=== PATIENT | female | born 1945 | race Caucasian/White ===

== ENCOUNTER 2023-01-18 14:08 | Outpatient (OUT) | payer MEDICARE, SELFPAY ==
--- NOTE | 2023-01-18 | CONS_ITS ---
CONSULTATION DATE: ??01/18/2023 ADDENDUM TO HISTORY:? After chief complaint, I had reported that the patient had sustained a fall on November 05, 2022 and suffered injury to her left shoulder and her left knee, requiring surgery for the left shoulder.? She reported, since that time, she has had marked acceleration of her lower back pain on the left side.? That entry was incorrect and this error correction needs to be documented. DAVID
--- NOTE | 2023-01-18 | CONS_ITS ---
PROCEDURE DATE: ??01/18/2023 PROCEDURE:? Left erector spinae trigger point injection at the L4 level. PREOPERATIVE DIAGNOSIS:? Pain secondary to myofascial spasm of the left lumbar paravertebral muscles/left erector spinae muscle. POSTOPERATIVE DIAGNOSIS:? Pain secondary to myofascial spasm of the left lumbar paravertebral muscles/left erector spinae muscle. IMMEDIATE COMPLICATIONS:? None. SOLUTION USED FOR INJECTION:? 2 mL of 2% lidocaine, 2 mL of 0.25% Marcaine, and 10 mg of Kenalog, total of 5 mL, 2 mL used for the injection at the site. PROCEDURE:? After informed consent was obtained from the patient, placed in the prone position.? Skin overlying the area was prepped with alcohol.? A 25 gauge, 1 ?? needle was inserted into the substance of the left erector spinae muscle at the L4 level.? Needle tip advanced until there was a twitch response, at which point we ruled out intravascular or intraneural needle tip placement.? 2 mL was injection.? No indication of intravascular or intraneural injection was noted.? Post procedure, needle was removed.? Patient reports reduction in pain symptoms post procedurally.? MTDD
--- NOTE | 2023-01-18 16:23 | CONS_ITS ---
CONSULTATION DATE: ??01/18/2023 TO:? Dr. Zoë Spivey CHIEF COMPLAINT:? Includes left lower back pain.? HISTORY:? She reports she sustained a fall on November 05, 2022 and was suffering injury to her left shoulder and her left knee, requiring surgery of the left shoulder, but she reports since that time she has had a marked acceleration of her lower back pain on the left side.? She reports the pain as being 5-7/10, sharp in character, increased with activity such as standing and walking and performing transitioning maneuvers.? She feels most comfortable in the semi- recumbent position.? She denies any change in bowel and bladder habits or new sensorimotor changes in the lower extremities. EXAM:? Her exam is notable for patient having no clinical radiculopathy or myelopathy involving the lower extremities; however, she did have progressive tenderness of what appears to be her L4 spinous process, possibly the L5 spinous process.? She had severe myofascial spasm of the lumbar paravertebral muscles on the left side including her erector spinae.? She had significant pain with lumbar facet loading maneuvers on the left side at L4-5, L5-S1. IMPRESSION:? Our impression is patient appears to have chronic pain secondary to: 1.? Possible compression fracture, possibly at L4, possibly L5, status post fall with progressive pain. 2.? Lumbosacral spondylosis, facet joint loading pain clinically on the left at L4-5, L5-S1. 3.? Myofascial spasm of erector spinae, more significant on the left side. RECOMMENDATIONS:? I have offered her trigger point injection of her left erector spinae muscle on today?s visit.? I have recommended a lumbosacral MRI without contrast to determine the extent of her compression fracture, if any, and we will follow up with the patient via telephone after we have evaluated her imaging studies.? She may be a candidate for either a facet joint injection on the left at L4-5, L5-S1 versus an epidural injection.? I would like to review the MRI prior to making this recommendation to the patient. As part of providing excellent, safe, comprehensive care, the following was completed at our patient's visit: 1. A medication reconciliation and review to ensure accurate knowledge of current/active medications, including asking our patients to inform us about any [id number] medications or herbal remedies/nutritional supplements/alternative remedies. 2. A review to specifically ensure our patients have had annual screening for: elevated body mass index (BMI, see intake chart for exact total), tobacco use, screening for depression, and screening for unhealthy alcohol use.? When screening is concerning, patients are provided with education and the specific recommendation to discuss the concerning health issue and treatment options with their primary care provider. DAVID
== END 2023-01-18 14:09 | disposition home or self-care (01) ==
LOC: PM 02-17 14:08
PROVIDERS: Visit Provider Anesthesiology Pain Medicine
DX: G89.29 Other chronic pain (principal); M47.817 Spondylosis without myelopathy or radiculopathy, lumbosacral region; M62.838 Other muscle spasm; M79.18 Myalgia, other site
CPT/HCPCS: 20552

== ENCOUNTER 2023-02-07 13:31 | Outpatient (OUT) | payer MEDICARE, SELFPAY ==
--- NOTE | 2023-02-07 13:38 | MR_ITS ---
[address] [address] Patient Name: NAHED BAUMANN MRN: [id number] date: 1945 Sex: F Assigned Patient Location: MRI Current Patient Location: MRI Accession/Order Number: [id number] Exam Date: 02/07/2023 13:50 Report Date: 02/07/2023 15:47 At the request of: YANE FELICIANO Procedure: MR lumbar spine wo con EXAMINATION: MR lumbar spine wo con HISTORY: Lumbar Compression Fracture ; acute left buttock and left leg pain; chronic low back pain COMPARISON: XR L-spine 01/18/2023 TECHNIQUE: A variety of imaging planes and parameters were utilized for visualization of suspected pathology. FINDINGS: For the purposes of numbering, sagittal T2 image # 10 extends from the T11 vertebral body superiorly to the S3 level inferiorly. PARASPINAL AREA: Normal with no visible mass. BONES: Minimal grade 1 anterolisthesis of L3 on 4. No fracture or bone lesion. CORD/CAUDA EQUINA: Normal caliber, contour, and signal intensity. DISC LEVELS: 12-L1: No significant disc/facet abnormality, spinal stenosis, or foraminal stenosis. L1-L2: No significant disc/facet abnormality, spinal stenosis, or foraminal stenosis. L2-L3: Mild central canal narrowing without significant foramen narrowing. Mild diffuse disc bulging and moderate disc height reduction. L3-L4: Moderate marked central canal and right foramen narrowing. Mild left foramen narrowing. Minimal grade 1 anterolisthesis, moderate diffuse disc bulging, moderate disc height reduction, and moderate marked degenerative facet arthropathy and ligamentum flavum thickening. L4-L5: Moderate-marked central canal narrowing. Moderate right, mild left foramen narrowing. Moderate diffuse disc bulging and small posterior central disc protrusion. No significant disc height reduction. Moderate marked degenerative facet arthropathy and ligamentum flavum thickening. L5-S1: Mild bilateral foramen narrowing without significant central canal narrowing. Disc desiccation without significant disc bulging or height reduction. Moderate degenerative facet arthropathy bilaterally. MR/MR lumbar spine wo con IMPRESSION: 1. Moderate marked central canal narrowing and foramen narrowing L3-4, L4-5 secondary to degenerative disc disease and facet arthropathy. Electronically authenticated by: CARLO LAWSON Date: 02/07/2023 15:47
== END 2023-02-07 13:32 | disposition home or self-care (01) ==
LOC: MRI 13:31
PROVIDERS: Visit Provider Anesthesiology Pain Medicine
DX: M48.56XA Collapsed vertebra, not elsewhere classified, lumbar region, initial encounter for fracture (principal); M48.061 Spinal stenosis, lumbar region without neurogenic claudication; M99.73 Connective tissue and disc stenosis of intervertebral foramina of lumbar region; M51.36 Other intervertebral disc degeneration, lumbar region; M47.816 Spondylosis without myelopathy or radiculopathy, lumbar region
CPT/HCPCS: 72148

== ENCOUNTER 2023-02-24 11:19 | Outpatient (OUT) | payer MEDICARE, SELFPAY ==
--- NOTE | 2023-02-24 11:53 | PM.CN ---
Consult Note: HPI Data of Consult Patient: known to practice within the last 3 years Consult date: 02/24/23 Requesting Physician: BUZZ PRINCE NP Primary Care Provider: Non-Staff Physician, MD Consult Narrative Narrative: Patient is here for increased left low back pain. She is scheduled for dx MBB left lumbar area on 03/08/23. She feels that PT has increased her pain. No radicular sx. She feels her pain med is wearing off before next dose is due. We can increase dose to TID until RFA completed. She has narcan at home. No new sensorimotor sx or bowel or bladder issues. No adverse medication SE. Medications assist patient with better ability to perform ADLs. She is not a candidate for steroid dose pack d/t DM and xarelto. cc:: CC: BUZZ PRINCE NP Review of Systems ROS Status of ROS 10 or more systems reviewed and unremarkable except as noted in history and below Musculoskeletal Reports: back pain Meds Home Medications and Allergies Home Medications Medication Instructions Recorded Confirmed Type baclofen 10 mg tablet 10 mg PO BID 01/18/23 01/18/23 History carvedilol 25 mg tablet 12 mg PO BID 01/18/23 01/18/23 History cholecalciferol (vitamin D3) 50 2,000 unit PO DAILY 01/18/23 01/18/23 History mcg (2,000 unit) capsule (Vitamin D3) diltiazem HCl 60 mg tablet 60 mg PO TID 01/18/23 01/18/23 History doxepin 10 mg capsule 20 mg PO BEDTIME 01/18/23 01/18/23 History duloxetine 30 mg capsule,delayed 30 mg PO DAILY 01/18/23 01/18/23 History release furosemide 20 mg tablet (Lasix) 20 mg PO DAILY 01/18/23 01/18/23 History hydrocodone 5 mg-acetaminophen 325 1 tab PO BID 01/18/23 01/18/23 History mg tablet insulin glargine 100 unit/mL 27 unit subcut BID 01/18/23 01/18/23 History subcutaneous solution (Lantus U-100 Insulin) levothyroxine 75 mcg capsule 75 mcg PO DAILY 01/18/23 01/18/23 History liraglutide 0.6 mg/0.1 mL (18 mg/3 2.4 mg subcut DAILY 01/18/23 01/18/23 History mL) subcutaneous pen injector (Victoza 2-Osman) multivitamin 1 tab PO DAILY 01/18/23 01/18/23 History omega 4-dte-awi-fish oil 120 1 cap PO .QD 01/18/23 01/18/23 History mg-180 mg-500 mg capsule (Fish Oil) ramipril 5 mg capsule 5 mg PO DAILY 01/18/23 01/18/23 History rivaroxaban 20 mg tablet (Xarelto) 20 mg PO DAILY 01/18/23 01/18/23 History tumeric 100 mg-feliberto 150 mg-olive 1 cap PO .QD 01/18/23 01/18/23 History 50 mg-oreg 150 mg-caprylate capsule Allergies Allergy/AdvReac Type Severity Reaction Status Date / Time amlodipine Allergy Unknown Verified 01/18/23 15:52 amoxicillin [From Augmentin] Allergy Unknown Verified 01/18/23 15:52 bacitracin Allergy Unknown Verified 01/18/23 15:52 [From Neosporin ([id number])] clavulanic acid Allergy Unknown Verified 01/18/23 15:52 [From Augmentin] dexamethasone [From TobraDex] Allergy Unknown Verified 01/18/23 15:52 fexofenadine [From Jody] Allergy Unknown Verified 01/18/23 15:52 neomycin Allergy Unknown Verified 01/18/23 15:52 oxybutynin Allergy Unknown Verified 01/18/23 15:52 polymyxin B Allergy Unknown Verified 01/18/23 15:52 [From Neosporin ([id number])] tobramycin [From TobraDex] Allergy Unknown Verified 01/18/23 15:52 tramadol Allergy Unknown Verified 01/18/23 15:52 metform Allergy Unknown Uncoded 01/18/23 15:52 zocor Allergy Unknown Uncoded 01/18/23 15:52 Exam Constitutional Documenting provider has reviewed patient's vital signs: yes Common normals: no apparent distress, oriented x3, healthy appearing, alert and well nourished General appearance: cooperative, comfortable and well developed Nutritional appearance: obese Orientation/consciousness: Yes awake, Yes oriented to person, Yes oriented to place and Yes oriented to time HENMT Common normals: normocephalic and moist oral mucous membranes Respiratory Common normals: normal respiratory effort, no retractions and no use of accessory muscles Effort & inspection: able to speak in complete sentences Back & Pelvis Lumbar spine/lower back: normal to inspection, ROM limited, pain with ROM, paraspinal muscle tenderness and paraspinal muscle spasm Other: positive facet loading pain bilat lumbar worse on left muscle strength 4/5 bilat LE with intact sensation Assessment and Plan Assessment and Plan (1) Lumbar spondylosis: (2) Muscle spasm: Plan increase norco dose to TID keep scheduled procedure appt.
== END 2023-02-24 11:20 | disposition home or self-care (01) ==
LOC: PM 11:20
PROVIDERS: Visit Provider Nurse Practitioner
DX: M47.816 Spondylosis without myelopathy or radiculopathy, lumbar region (principal); M62.838 Other muscle spasm
CPT/HCPCS: G0463

== ENCOUNTER 2023-04-05 11:27 | Day surgery (SDC) | payer MEDICARE, SELFPAY ==
[2023-04-05 12:01] VITALS: BP 170/75; PULSE 72; RESP 16; TEMP 36.6; O2SAT 95
[2023-04-05 12:07] LABS: Glucometer 88 mg/dL (74-106)
[2023-04-05 13:08] VITALS: BP 201/88; PULSE 69; RESP 18; O2SAT 94
[2023-04-05] MEDS: BUPIVACAINE HCL 0.25% PF 25 MG/10 ML VIAL INJ (13:09)
[2023-04-05 13:11] VITALS: BP 204/93; PULSE 70; RESP 18; O2SAT 94
--- NOTE | 2023-04-05 16:13 | W.PM.PROCNOT ---
Date of procedure: 04/05/23 Pre-op diagnosis: lumbar spondylosis Post-op diagnosis: same as pre-op Procedure: Left lumbar 4/5 & 5/Sacral 1 facet injection Under fluoroscopic guidance Solution injected: 2millilitersMarcaine 0.25% Anesthesia :none Immediate complications none Time out process compliant After informed consent obtained from the patient placed in the Prone proposition . area was prepped and draped in a sterile fashion using betadine. 25 gauge spinal needle inserted over each of the above mentioned target areas . [place] were directed towards the target under fluoroscopic guidance . after encountering each of the targets , no indication of intravascular intraneuronal or intrathecal needle tip placement. Then 0 .5 to 1 Milliliter was injected at each level. [place] removed postoperatively. patient transferred to recovery in stable condition to be discharged home after meeting criteria Anesthesia: Local Surgeon: Sandip Kaminski Condition: stable
== END 2023-04-05 13:19 | disposition home or self-care (01) ==
LOC: SURGOUT 11:27
PROVIDERS: Visit Provider Anesthesiology Pain Medicine
DX: M47.816 Spondylosis without myelopathy or radiculopathy, lumbar region (principal); Z79.4 Long term (current) use of insulin; Z79.899 Other long term (current) drug therapy
CPT/HCPCS: 36415; 64493; 64494; 82948

== ENCOUNTER 2023-04-14 11:33 | Outpatient (OUT) | payer MEDICARE, SELFPAY ==
--- NOTE | 2023-04-14 11:38 | P.CN_ITS ---
Consult Note: HPI Data of Consult Patient: known to practice within the last 3 years Requesting Physician: Veronica Rouse NP Primary Care Provider: Non-Staff Physician, MD Consult Narrative Reason for consult: procedure follow up Narrative: Deidra Peterson a pleasant 78 year old female presents for evaluation of chronic low back pain. Recently underwent Left lumbar 4/5 & 5/Sacral 1 facet injection #1 with >90% pain relief and functional improvement. Patient continues to have bilateral low back pain. Recently fell at home and has ongoing right rib pain, has been evaluated by PCP for this. Today rating pain 7-8/10 in bilateral low back. cc:: CC: Veronica Rouse NP Review of Systems ROS Status of ROS 10 or more systems reviewed and unremarkable except as noted in history and below Musculoskeletal Reports: back pain Meds Home Medications and Allergies Home Medications Medication Instructions Recorded Confirmed Type baclofen 10 mg tablet 10 mg PO BID 01/18/23 04/05/23 History carvedilol 25 mg tablet 12 mg PO BID 01/18/23 04/05/23 History cholecalciferol (vitamin D3) 50 2,000 unit PO DAILY 01/18/23 04/05/23 History mcg (2,000 unit) capsule (Vitamin D3) diltiazem HCl 60 mg tablet 60 mg PO TID 01/18/23 04/05/23 History duloxetine 30 mg capsule,delayed 30 mg PO DAILY 01/18/23 04/05/23 History release furosemide 20 mg tablet (Lasix) 20 mg PO DAILY 01/18/23 04/05/23 History hydrocodone 5 mg-acetaminophen 325 1 tab PO BID 01/18/23 04/05/23 History mg tablet insulin glargine 100 unit/mL 27 unit subcut BID 01/18/23 04/05/23 History subcutaneous solution (Lantus U-100 Insulin) levothyroxine 75 mcg capsule 75 mcg PO DAILY 01/18/23 04/05/23 History multivitamin 1 tab PO DAILY 01/18/23 04/05/23 History omega 0-kjf-uph-fish oil 120 1 cap PO .QD 01/18/23 04/05/23 History mg-180 mg-500 mg capsule (Fish Oil) ramipril 5 mg capsule 5 mg PO DAILY 01/18/23 04/05/23 History rivaroxaban 20 mg tablet (Xarelto) 20 mg PO DAILY 01/18/23 04/05/23 History tumeric 100 mg-feliberto 150 mg-olive 1 cap PO .QD 01/18/23 04/05/23 History 50 mg-oreg 150 mg-caprylate capsule hydrocodone 5 mg-acetaminophen 325 1 tab PO TID PRN pain #90 tabs 03/23/23 04/05/23 Rx mg tablet tirzepatide 2.5 mg/0.5 mL 2.5 mg subcut QWEEK 04/05/23 04/05/23 History subcutaneous pen injector (Mounjaro) Allergies Allergy/AdvReac Type Severity Reaction Status Date / Time amlodipine Allergy Unknown Verified 04/05/23 12:07 amoxicillin [From Augmentin] Allergy Unknown Verified 04/05/23 12:07 bacitracin Allergy Unknown Verified 04/05/23 12:07 [From Neosporin ([id number])] clavulanic acid Allergy Unknown Verified 04/05/23 12:07 [From Augmentin] dexamethasone [From TobraDex] Allergy Unknown Verified 04/05/23 12:07 fexofenadine [From Jody] Allergy Unknown Verified 04/05/23 12:07 neomycin Allergy Unknown Verified 04/05/23 12:07 oxybutynin Allergy Unknown Verified 04/05/23 12:07 polymyxin B Allergy Unknown Verified 04/05/23 12:07 [From Neosporin ([id number])] tobramycin [From TobraDex] Allergy Unknown Verified 04/05/23 12:07 tramadol Allergy Unknown Verified 04/05/23 12:07 metform Allergy Unknown Uncoded 04/05/23 12:07 zocor Allergy Unknown Uncoded 04/05/23 12:07 Exam Constitutional Documenting provider has reviewed patient's vital signs: yes Common normals: no apparent distress, oriented x3, healthy appearing, alert and well nourished General appearance: cooperative HENMT Common normals: normocephalic, hearing grossly normal bilaterally and moist oral mucous membranes Head and scalp: normocephalic Eye Common normals: PERRL Pupil: PERRL Neck & C-Spine Common normals: full ROM General: normal visual inspection Chest Common normals: inspection of chest normal Respiratory Common normals: normal respiratory effort, no retractions and no use of accessory muscles Back & Pelvis Lumbar spine/lower back: ROM limited, pain with ROM and straight leg raise negative bilaterally Other: bilateral facet loading no radiculopathy on exam Extremity Common normals: normal to inspection and full ROM Neuro Common normals: oriented x3, CN's II-XII intact bilaterally, moves all extremities, no focal motor deficits, no sensory deficits noted and deep tendon reflexes 2+ bilaterally Sensorium/orientation: alert Motor exam: strength 5/5 throughout and no movement abnormalities noted Psych Common normals: mental status grossly normal, thought process normal, cooperati ve, affect normal, speech normal and activity/motor behavior normal Speech: normal speech Thought process: normal thought process Results Additional Findings Additional findings: I have checked an [place] report on this patient today and there are no aberrancies noted in the prescribing history.?? A drug screen was completed and reviewed within the last year, and if there has not been a drug screen completed we ordered one today to monitor higher risk, state monitored pain medication use. As part of providing excellent, safe, comprehensive care, the following was completed at our patient's visit: 1. A medication reconciliation and review to ensure accurate knowledge of current/active medications, including asking our patients to inform us about any [id number] medications or herbal remedies/nutritional supplements/alternative remedies. 2. A review to specifically ensure our patients have had annual screening for: elevated body mass index (BMI), tobacco use, screening for depression, and screening for unhealthy alcohol use. When screening is concerning, patients are provided with education and the specific recommendation to discuss the concerning health issue and treatment options with their primary care provider. Assessment and Plan Assessment and Plan (1) Lumbar spondylosis: (2) Muscle spasm: (3) Chronic prescription opiate use: Assessment and Plan: I feel these medications are improving the patient's quality of life and allow them to tolerate activities of daily living as well as participate in recreational activity.? The patient does not report intolerable side effects. The patient is NOT opioid naive and non-pharmacologic and non-opioid treatment has failed to significantly relieve the patient's pain and improve functionality. The patient has a diagnosis that is related to a somatic or visceral pain etiology. ? ?? I reviewed with the patient the potential risks and side effects with the use of? opioid medications including but not limited to respiratory depression,? sedation, and even . I verified the patient has access to naloxone should? these effects occur. I advised the patient to avoid the use of any other? sedation substances including alcohol, THC, and benzodiazepines while? taking opioid medications due to the risk of compounding side effects and? detrimental outcomes. I reviewed the [employer], pain treatment agreement, urine? drug screen, and opioid start talking forms. The patient was advised to let? their family know they had Naloxone in case they would need to administer? the medication.? ?? Plan previously had left L 4/5 l 5/s1 MBB, next MBB to be bilateral L4/5 L5/S1 working towards thermal RFA continue current medication regimen, tolerating well without side effects follow up with PCP as needed for right rib pain, explained pain in these areas can take months to completely resolve but she should follow up if pain worsens or fails to improve f/u 1 week after next MBB
== END 2023-04-14 11:34 | disposition home or self-care (01) ==
PROVIDERS: Visit Provider Nurse Practitioner
DX: M47.816 Spondylosis without myelopathy or radiculopathy, lumbar region (principal); M62.838 Other muscle spasm; Z79.891 Long term (current) use of opiate analgesic
CPT/HCPCS: G0463

== ENCOUNTER 2023-05-03 08:51 | Day surgery (SDC) | payer MEDICARE, SELFPAY ==
[2023-05-03 09:18] VITALS: BP 156/76; PULSE 67; RESP 16; TEMP 36.3; O2SAT 96
[2023-05-03 09:22] LABS: Glucometer 116 mg/dL (74-106)
[2023-05-03] MEDS: BUPIVACAINE HCL 0.25% PF 25 MG/10 ML VIAL INJ (10:06)
--- NOTE | 2023-05-03 10:07 | P.ON_ITS ---
Date of procedure: 05/03/23 Pre-op diagnosis: Lumbar Spondylosis Post-op diagnosis: same as pre-op Procedure: Bilateral lumbar 4/5, 5/sacral 1 medial branch block Under fluoroscopic guidance Solution injected: 2millilitersMarcaine 0.25% Anesthesia :none Immediate complications none Time out process compliant After informed consent obtained from the patient placed in the Prone proposition . area was prepped and draped in a sterile fashion using Cloraprep .25 gauge spinal needle inserted over each of the above mentioned target areas . [place] were directed towards the target under fluoroscopic guidance . after encountering each of the targets , no indication of intravascular intraneuronal or intrathecal needle tip placement. Then 0 .5 to 1 Milliliter was injected at each level. [place] removed postoperatively. patient transferred to recovery in stable condition to be discharged home after meeting criteria Anesthesia: Local Surgeon: Sandip Kaminski Condition: stable
[2023-05-05 12:11] VITALS: BP 184/84; BP 192/85; PULSE 66; PULSE 68; RESP 18; O2SAT 92; O2SAT 93
== END 2023-05-03 10:17 | disposition home or self-care (01) ==
LOC: SURGOUT 08:51
PROVIDERS: Visit Provider Anesthesiology Pain Medicine
DX: M47.816 Spondylosis without myelopathy or radiculopathy, lumbar region (principal); Z79.4 Long term (current) use of insulin
CPT/HCPCS: 36415; 64493; 64494; 82948

== ENCOUNTER 2023-05-12 12:23 | Outpatient (OUT) | payer MEDICARE, SELFPAY ==
--- NOTE | 2023-05-12 12:56 | PM.CN ---
Consult Note: HPI Data of Consult Patient: known to practice within the last 3 years Requesting Physician: Veronica Rouse NP Primary Care Provider: Non-Staff Physician, Consult Narrative Reason for consult: F/u Narrative: Deidra Peterson a pleasant 78 year old female presents for evaluation and management of chronic low back pain. Patient recently underwent bilateral L4-5 L5-S1 MBB#2 with >85% pain relief and functional improvement immediately after and hours following the procedure. Patient has now had 2 successful test blocks on the left side and 1 on the right side. Today rating pain 8/10 in bilateral low back stabbing sharp pain worse with activity and standing walking, improved with rest and medications. cc:: CC: Veronica Rouse NP Review of Systems ROS Status of ROS 10 or more systems reviewed and unremarkable except as noted in history and below Meds Home Medications and Allergies Home Medications Medication Instructions Recorded Confirmed Type baclofen 10 mg tablet 10 mg PO BID 01/18/23 05/03/23 History carvedilol 25 mg tablet 12 mg PO BID 01/18/23 05/03/23 History cholecalciferol (vitamin D3) 50 2,000 unit PO DAILY 01/18/23 05/03/23 History mcg (2,000 unit) capsule (Vitamin D3) diltiazem HCl 60 mg tablet 60 mg PO TID 01/18/23 05/03/23 History duloxetine 30 mg capsule,delayed 30 mg PO DAILY 01/18/23 05/03/23 History release furosemide 20 mg tablet (Lasix) 20 mg PO DAILY 01/18/23 05/03/23 History hydrocodone 5 mg-acetaminophen 325 1 tab PO BID 01/18/23 05/03/23 History mg tablet insulin glargine 100 unit/mL 27 unit subcut BID 01/18/23 05/03/23 History subcutaneous solution (Lantus U-100 Insulin) levothyroxine 75 mcg capsule 75 mcg PO DAILY 01/18/23 05/03/23 History multivitamin 1 tab PO DAILY 01/18/23 05/03/23 History omega 2-wvz-cjm-fish oil 120 1 cap PO .QD 01/18/23 05/03/23 History mg-180 mg-500 mg capsule (Fish Oil) ramipril 5 mg capsule 5 mg PO DAILY 01/18/23 05/03/23 History rivaroxaban 20 mg tablet (Xarelto) 20 mg PO DAILY 01/18/23 05/03/23 History tumeric 100 mg-feliberto 150 mg-olive 1 cap PO .QD 01/18/23 05/03/23 History 50 mg-oreg 150 mg-caprylate capsule hydrocodone 5 mg-acetaminophen 325 1 tab PO TID PRN pain #90 tabs 03/23/23 05/03/23 Rx mg tablet tirzepatide 2.5 mg/0.5 mL 2.5 mg subcut QWEEK 04/05/23 05/03/23 History subcutaneous pen injector (Mounjaro) cranberry 500 mg capsule 500 mg PO DAILY 04/14/23 05/03/23 History docusate sodium 100 mg capsule 100 mg PO BID 04/14/23 05/03/23 History (Stool Softener) ferrous sulfate 325 mg (65 mg 325 mg PO DAILY 04/14/23 05/03/23 History iron) tablet hydrocodone 5 mg-acetaminophen 325 1 tab PO Q8H PRN pain #90 tabs 04/14/23 05/03/23 Rx mg tablet krill oil 500 mg capsule mg PO 04/14/23 History magnesium glycinate 100 mg tablet 100 mg PO DAILY 04/14/23 05/03/23 History mecobalamin (vitamin B12) 1,000 1,000 mcg PO DAILY 04/14/23 05/03/23 History mcg chewable tablet (B12 Active) niacin 50 mg tablet 50 mg PO DAILY 04/14/23 05/03/23 History Allergies Allergy/AdvReac Type Severity Reaction Status Date / Time amlodipine Allergy Unknown Verified 05/03/23 09:16 amoxicillin [From Augmentin] Allergy Unknown Verified 05/03/23 09:16 bacitracin Allergy Unknown Verified 05/03/23 09:16 [From Neosporin ([id number])] clavulanic acid Allergy Unknown Verified 05/03/23 09:16 [From Augmentin] dexamethasone [From TobraDex] Allergy Unknown Verified 05/03/23 09:16 fexofenadine [From Jody] Allergy Unknown Verified 05/03/23 09:16 neomycin Allergy Unknown Verified 05/03/23 09:16 oxybutynin Allergy Unknown Verified 05/03/23 09:16 polymyxin B Allergy Unknown Verified 05/03/23 09:16 [From Neosporin ([id number])] tobramycin [From TobraDex] Allergy Unknown Verified 05/03/23 09:16 tramadol Allergy Unknown Verified 05/03/23 09:16 metform Allergy Unknown Uncoded 05/03/23 09:16 zocor Allergy Unknown Uncoded 05/03/23 09:16 Exam Constitutional Documenting provider has reviewed patient's vital signs: yes Common normals: no apparent distress, oriented x3, healthy appearing, alert and well nourished General appearance: cooperative HENMT Common normals: normocephalic, hearing grossly normal bilaterally and moist oral mucous membranes Head and scalp: normocephalic Eye Common normals: PERRL Pupil: PERRL Neck & C-Spine Common normals: full ROM General: normal visual inspection Chest Common normals: inspection of chest normal Respiratory Common normals: normal respiratory effort, no retractions and no use of accessory muscles Back & Pelvis Lumbar spine/lower back: ROM limited, pain with ROM and straight leg raise negative bilaterally Other: bilateral facet loading pain over L4-5 L5-S1 MBB no radiculopathy on exam Extremity Common normals: normal to inspection and full ROM Neuro Common normals: oriented x3, CN's II-XII intact bilaterally, moves all extremities, no focal motor deficits, no sensory deficits noted and deep tendon reflexes 2+ bilaterally Sensorium/orientation: alert Motor exam: strength 5/5 throughout and no movement abnormalities noted Psych Common normals: mental status grossly normal, thought process normal, cooperative, affect normal, speech normal and activity/motor behavior normal Speech: normal speech Thought process: normal thought process Results Additional Findings Additional findings: I have checked an OAR[place] report on this patient today and there are no aberrancies noted in the prescribing history.?? A drug screen was completed and reviewed within the last year, and if there has not been a drug screen completed we ordered one today to monitor higher risk, state monitored pain medication use. As part of providing excellent, safe, comprehensive care, the following was completed at our patient's visit: 1. A medication reconciliation and review to ensure accurate knowledge of current/active medications, including asking our patients to inform us about any [id number] medications or herbal remedies/nutritional supplements/alternative remedies. 2. A review to specifically ensure our patients have had annual screening for: elevated body mass index (BMI), tobacco use, screening for depression, and screening for unhealthy alcohol use. When screening is concerning, patients are provided with education and the specific recommendation to discuss the concerning health issue and treatment options with their primary care provider. Assessment and Plan Assessment and Plan (1) Lumbar spondylosis: (2) Muscle spasm: (3) Chronic prescription opiate use: Assessment and Plan: I feel these medications are improving the patient's quality of life and allow them to tolerate activities of daily living as well as participate in recreational activity.? The patient does not report intolerable side effects. The patient is NOT opioid naive and non-pharmacologic and non-opioid treatment has failed to significantly relieve the patient's pain and improve functionality. The patient has a diagnosis that is related to a somatic or visceral pain etiology. ? ?? I reviewed with the patient the potential risks and side effects with the use of? opioid medications including but not limited to respiratory depression,? sedation, and even . I verified the patient has access to naloxone should? these effects occur. I advised the patient to avoid the use of any other? sedation substances including alcohol, THC, and benzodiazepines while? taking opioid medications due to the risk of compounding side effects and? detrimental outcomes. I reviewed the [employer], pain treatment agreement, urine? drug screen, and opioid start talking forms. The patient was advised to let? their family know they had Naloxone in case they would need to administer? the medication.? ?? Plan proceed with left L4-5 L5-S1 thermal RFA under fluoroscopy with IV sedation, discussed risks and benefits of procedure continue current medication regimen, tolerating well without side effects continue f/u with PCP, will reach out to see if we can increase duloxetine to 60mg daily for further pain improvment f/u 1 month after RFA, continue right Lumbar spine workup after that has had 1 right L4-5 L5-S1 MBB with >80% pain relief and functional improvement
== END 2023-05-12 12:24 | disposition home or self-care (01) ==
LOC: PM 12:41
PROVIDERS: Visit Provider Nurse Practitioner
DX: M47.816 Spondylosis without myelopathy or radiculopathy, lumbar region (principal); M62.838 Other muscle spasm; Z79.899 Other long term (current) drug therapy
CPT/HCPCS: G0463

== ENCOUNTER 2023-06-07 08:33 | Day surgery (SDC) | payer MEDICARE, SELFPAY ==
[2023-06-07 09:04] VITALS: BP 140/84; PULSE 117; RESP 14; TEMP 36.3; O2SAT 95
[2023-06-07 09:12] LABS: Glucometer 104 mg/dL (74-106)
[2023-06-07] MEDS: 0.9 % SODIUM CHLORIDE 500 ML 50 ML IV (09:29)
[2023-06-07] MEDS: BUPIVACAINE HCL 0.25% PF 25 MG/10 ML VIAL 4 ML INJ (09:45)
[2023-06-07] MEDS: METHYLPREDNISOLONE ACETATE 40 MG/ML VIAL INJ (09:45)
[2023-06-07] MEDS: LIDOCAINE HCL 2% 400 MG/20 ML MDV 6 ML INJ (09:45)
[2023-06-07 09:58] VITALS: BP 121/62; PULSE 70; RESP 16; TEMP 36.8; O2SAT 93
[2023-06-07 10:01] VITALS: BP 132/49; PULSE 70; RESP 16; TEMP 36.8; O2SAT 92
--- NOTE | 2023-06-07 10:32 | W.PM.PROCNOT ---
Date of procedure: 06/07/23 Pre-op diagnosis: Lumbar spondylosis Post-op diagnosis: same as pre-op Procedure: Left Lumbar 4/5, 5/sacral 1 Radiofrequency ablation Under fluoroscopic guidance Rhizotomy was created using radio frequency ablation at 80?C for 90 seconds 1 to 2 lesions created at each site. Post lesioning injection of 2 mL each of 0.25% Marcaine and 2% lidocaine with Depo-Medrol 40mg. 0.5 to 1 mL injected at each site IV in place yes If Intravenous fluids: NS at KVO Anesthesia local 2% lidocaine for Anesthesia Other: MAC Timeout process compliant After informed consent obtained.Patient brought to the procedure room placed in the prone position skin overlying the area was prepped and draped in a sterile fashion using betadine. 25 gauge needle was used to create a skin wheal over each of the targeted areas utilizing 2% lidocaine. A rhizotomy needle with a 10 mm active tip was inserted over each of the anesthetized areas and directed towards each of the medial branches accomplished under fluoroscopic guidance. after encountering the same we had positive sensory stimulation, negative motor stimulation was noted. lesions were then created. Post lesioning, steroid solution was injected needles removed. Patient was transferred to recovery room in stable condition to be discharged home after meeting criteria. Anesthesia: MAC Surgeon: Sandip Kaminski Condition: stable
== END 2023-06-07 10:23 | disposition home or self-care (01) ==
LOC: SURGOUT 08:33
PROVIDERS: Visit Provider Anesthesiology Pain Medicine
DX: M47.816 Spondylosis without myelopathy or radiculopathy, lumbar region (principal)
CPT/HCPCS: 36415; 64635; 64636; J1030; J2704

== ENCOUNTER 2023-06-22 10:26 | Outpatient (OUT) | payer MEDICARE, SELFPAY ==
--- NOTE | 2023-06-22 10:53 | PM.CN ---
Consult Note: HPI Data of Consult Patient: known to practice within the last 3 years Requesting Physician: Veronica Rouse NP Primary Care Provider: Non-Staff Physician, MD Consult Narrative Reason for consult: f/u Narrative: Deidra Peterson a pleasant 78 year old female presents for evaluation and management of chronic low back pain. Patient recently underwent bilateral L4-5 L5-S1 RFA with >85% pain relief and functional improvement ongoing. However patient having more pain on the right side. Today rating pain 8/10 in right low back stabbing sharp pain worse with activity and standing walking, improved with rest and medications. cc:: CC: Veronica Rouse NP Review of Systems ROS Status of ROS 10 or more systems reviewed and unremarkable except as noted in history and below Musculoskeletal Reports: back pain and neck pain Meds Home Medications and Allergies Home Medications Medication Instructions Recorded Confirmed Type baclofen 10 mg tablet 10 mg PO BID 01/18/23 06/07/23 History carvedilol 25 mg tablet 12 mg PO BID 01/18/23 06/07/23 History cholecalciferol (vitamin D3) 50 2,000 unit PO DAILY 01/18/23 06/07/23 History mcg (2,000 unit) capsule (Vitamin D3) diltiazem HCl 60 mg tablet 60 mg PO TID 01/18/23 06/07/23 History duloxetine 30 mg capsule,delayed 30 mg PO DAILY 01/18/23 06/07/23 History release furosemide 20 mg tablet (Lasix) 20 mg PO DAILY 01/18/23 06/07/23 History hydrocodone 5 mg-acetaminophen 325 1 tab PO BID 01/18/23 06/07/23 History mg tablet insulin glargine 100 unit/mL 27 unit subcut BID 01/18/23 06/07/23 History subcutaneous solution (Lantus U-100 Insulin) levothyroxine 75 mcg capsule 75 mcg PO DAILY 01/18/23 06/07/23 History multivitamin 1 tab PO DAILY 01/18/23 06/07/23 History omega 8-ftd-irv-fish oil 120 1 cap PO .QD 01/18/23 06/07/23 History mg-180 mg-500 mg capsule (Fish Oil) ramipril 5 mg capsule 5 mg PO DAILY 01/18/23 06/07/23 History rivaroxaban 20 mg tablet (Xarelto) 20 mg PO DAILY 01/18/23 06/07/23 History tumeric 100 mg-feliberto 150 mg-olive 1 cap PO .QD 01/18/23 06/07/23 History 50 mg-oreg 150 mg-caprylate capsule hydrocodone 5 mg-acetaminophen 325 1 tab PO TID PRN pain #90 tabs 03/23/23 06/07/23 Rx mg tablet tirzepatide 2.5 mg/0.5 mL 2.5 mg subcut QWEEK 04/05/23 06/07/23 History subcutaneous pen injector (Mounjaro) cranberry 500 mg capsule 500 mg PO DAILY 04/14/23 06/07/23 History docusate sodium 100 mg capsule 100 mg PO BID 04/14/23 06/07/23 History (Stool Softener) ferrous sulfate 325 mg (65 mg 325 mg PO DAILY 04/14/23 06/07/23 History iron) tablet hydrocodone 5 mg-acetaminophen 325 1 tab PO Q8H PRN pain #90 tabs 04/14/23 06/07/23 Rx mg tablet krill oil 500 mg capsule mg PO 04/14/23 History magnesium glycinate 100 mg tablet 100 mg PO DAILY 04/14/23 06/07/23 History mecobalamin (vitamin B12) 1,000 1,000 mcg PO DAILY 04/14/23 06/07/23 History mcg chewable tablet (B12 Active) niacin 50 mg tablet 50 mg PO DAILY 04/14/23 06/07/23 History hydrocodone 5 mg-acetaminophen 325 1 tab PO TID PRN pain #90 tabs 05/12/23 06/07/23 Rx mg tablet Allergies Allergy/AdvReac Type Severity Reaction Status Date / Time amlodipine Allergy Unknown Verified 06/07/23 09:15 amoxicillin [From Augmentin] Allergy Unknown Verified 06/07/23 09:15 bacitracin Allergy Unknown Verified 06/07/23 09:15 [From Neosporin ([id number])] clavulanic acid Allergy Unknown Verified 06/07/23 09:15 [From Augmentin] dexamethasone [From TobraDex] Allergy Unknown Verified 06/07/23 09:15 fexofenadine [From Jody] Allergy Unknown Verified 06/07/23 09:15 metformin Allergy Unknown Verified 06/07/23 09:21 neomycin Allergy Unknown Verified 06/07/23 09:15 oxybutynin Allergy Unknown Verified 06/07/23 09:15 polymyxin B Allergy Unknown Verified 06/07/23 09:15 [From Neosporin ([id number])] simvastatin [From Zocor] Allergy Unknown Verified 06/07/23 09:21 tobramycin [From TobraDex] Allergy Unknown Verified 06/07/23 09:15 tramadol Allergy Unknown Verified 06/07/23 09:15 Exam Constitutional Documenting provider has reviewed patient's vital signs: yes Common normals: no apparent distress, oriented x3, healthy appearing, alert and well nourished General appearance: cooperative HENMT Common normals: normocephalic, hearing grossly normal bilaterally and moist oral mucous membranes Head and scalp: normocephalic Eye Common normals: PERRL Pupil: PERRL Neck & C-Spine Common normals: full ROM General: normal visual inspection Cervical spine: pain with cervical ROM Chest Common normals: inspection of chest normal Respiratory Common normals: normal respiratory effort, no retractions and no use of accessory muscles Back & Pelvis Lumbar spine/lower back: ROM limited, pain with ROM and straight leg raise negative bilaterally Other: right facet loading pain pain over right L4-5 L5-S1 no radiculopathy on exam Extremity Common normals: normal to inspection and full ROM Neuro Common normals: oriented x3, CN's II-XII intact bilaterally, moves all extremities, no focal motor deficits, no sensory deficits noted and deep tendon reflexes 2+ bilaterally Sensorium/orientation: alert Motor exam: strength 5/5 throughout and no movement abnormalities noted Psych Common normals: mental status grossly normal, thought process normal, cooperative, affect normal, speech normal and activity/motor behavior normal Speech: normal speech Thought process: normal thought process Results Additional Findings Additional findings: I have checked an OARRS report on this patient today and there are no aberrancies noted in the prescribing history.?? A drug screen was completed and reviewed within the last year, and if there has not been a drug screen completed we ordered one today to monitor higher risk, state monitored pain medication use. As part of providing excellent, safe, comprehensive care, the following was completed at our patient's visit: 1. A medication reconciliation and review to ensure accurate knowledge of current/active medications, including asking our patients to inform us about any scou-rlj-vzymzyf medications or herbal remedies/nutritional supplements/alternative remedies. 2. A review to specifically ensure our patients have had annual screening for: elevated body mass index (BMI), tobacco use, screening for depression, and screening for unhealthy alcohol use. When screening is concerning, patients are provided with education and the specific recommendation to discuss the concerning health issue and treatment options with their primary care provider. Assessment and Plan Assessment and Plan (1) Lumbar spondylosis: (2) Muscle spasm: (3) Chronic prescription opiate use: Assessment and Plan: I feel these medications are improving the patient's quality of life and allow them to tolerate activities of daily living as well as participate in recreational activity.? The patient does not report intolerable side effects. The patient is NOT opioid naive and non-pharmacologic and non-opioid treatment has failed to significantly relieve the patient's pain and improve functionality. The patient has a diagnosis that is related to a somatic or visceral pain etiology. ? ?? I reviewed with the patient the potential risks and side effects with the use of? opioid medications including but not limited to respiratory depression,? sedation, and even . I verified the patient has access to naloxone should? these effects occur. I advised the patient to avoid the use of any other? sedation substances including alcohol, THC, and benzodiazepines while? taking opioid medications due to the risk of compounding side effects and? detrimental outcomes. I reviewed the [employer], pain treatment agreement, urine? drug screen, and opioid start talking forms. The patient was advised to let? their family know they had Naloxone in case they would need to administer? the medication.? ?? Plan proceed with right L4-5 L5-S1 MBB #2 under fluoroscopy, discussed risks and benefits of procedure continue current medication regimen, tolerating well without side effects f/u 1 week after procedure
== END 2023-06-22 10:27 ==
LOC: PM 10:31
PROVIDERS: Visit Provider Nurse Practitioner
DX: M47.816 Spondylosis without myelopathy or radiculopathy, lumbar region (principal); M62.838 Other muscle spasm; Z79.891 Long term (current) use of opiate analgesic
CPT/HCPCS: G0463

== ENCOUNTER 2023-07-05 07:49 | Day surgery (SDC) | payer MEDICARE, SELFPAY ==
[2023-07-05 08:10] VITALS: BP 153/84; PULSE 78; RESP 14; TEMP 36.3; O2SAT 96
[2023-07-05 08:17] LABS: Glucometer 132 mg/dL (74-106)
[2023-07-05 09:29] VITALS: BP 186/77; PULSE 76; RESP 16; O2SAT 98
[2023-07-05] MEDS: BUPIVACAINE HCL 0.25% PF 25 MG/10 ML VIAL INJ (09:29)
[2023-07-05 09:32] VITALS: BP 174/76; PULSE 76; RESP 18; O2SAT 98
--- NOTE | 2023-07-05 10:29 | W.PM.PROCNOT ---
Date of procedure: 07/05/23 Pre-op diagnosis: lumbar spondylosis Post-op diagnosis: same as pre-op Procedure: Right Lumbar 4/5, 5/sacral 1 medial branch block Under fluoroscopic guidance Solution injected: 2millilitersMarcaine 0.25% Anesthesia :none Immediate complications none Time out process compliant After informed consent obtained from the patient placed in the Prone proposition . area was prepped and draped in a sterile fashion using Cloraprep .25 gauge spinal needle inserted over each of the above mentioned target areas . [place] were directed towards the target under fluoroscopic guidance . after encountering each of the targets , no indication of intravascular intraneuronal or intrathecal needle tip placement. Then 0 .5 to 1 Milliliter was injected at each level. [place] removed postoperatively. patient transferred to recovery in stable condition to be discharged home after meeting criteria Anesthesia: Local Surgeon: Sandip Kaminski Condition: stable
== END 2023-07-05 09:38 | disposition home or self-care (01) ==
LOC: SURGOUT 07:49
PROVIDERS: Visit Provider Anesthesiology Pain Medicine
DX: M47.816 Spondylosis without myelopathy or radiculopathy, lumbar region (principal); Z79.4 Long term (current) use of insulin
CPT/HCPCS: 36415; 64493; 64494; 82948

== ENCOUNTER 2023-07-14 14:20 | Outpatient (OUT) | payer MEDICARE, SELFPAY ==
--- NOTE | 2023-07-14 14:43 | P.CN_ITS ---
Consult Note: HPI Data of Consult Patient: known to practice within the last 3 years Requesting Physician: Veronica Rouse NP Primary Care Provider: Non-Staff Physician, MD Consult Narrative Reason for consult: f/u Narrative: Deidra Peterson a pleasant 78 year old female presents for evaluation and management of chronic pain, today pain in low back and right buttock 8.5/10 sharp burning. Patient noticed 50-60% pain relief and functional improvement immediately following and hours after right L4-5 L5-S1 MBB#2. Patient would like to review her options for injection therapy. cc:: CC: Veronica Rouse NP Review of Systems ROS Status of ROS 10 or more systems reviewed and unremark able except as noted in history and below Musculoskeletal Reports: back pain Meds Home Medications and Allergies Home Medications Medication Instructions Recorded Confirmed Type baclofen 10 mg tablet 10 mg PO BID 01/18/23 07/05/23 History carvedilol 25 mg tablet 12 mg PO BID 01/18/23 07/05/23 History diltiazem HCl 60 mg tablet 60 mg PO TID 01/18/23 07/05/23 History duloxetine 30 mg capsule,delayed 60 mg PO DAILY 01/18/23 06/29/23 History release furosemide 20 mg tablet (Lasix) 20 mg PO DAILY 01/18/23 07/05/23 History hydrocodone 5 mg-acetaminophen 325 1 tab PO BID 01/18/23 06/29/23 History mg tablet insulin glargine 100 unit/mL 27 unit subcut BID 01/18/23 07/05/23 History subcutaneous solution (Lantus U-100 Insulin) levothyroxine 75 mcg capsule 75 mcg PO DAILY 01/18/23 07/05/23 History multivitamin 1 tab PO DAILY 01/18/23 07/05/23 History ramipril 5 mg capsule 5 mg PO DAILY 01/18/23 07/05/23 History rivaroxaban 20 mg tablet (Xarelto) 20 mg PO DAILY 01/18/23 07/05/23 History hydrocodone 5 mg-acetaminophen 325 1 tab PO TID PRN pain #90 tabs 03/23/23 06/29/23 Rx mg tablet tirzepatide 2.5 mg/0.5 mL 2.5 mg subcut QWEEK 04/05/23 07/05/23 History subcutaneous pen injector (Mounjaro) cranberry 500 mg capsule 500 mg PO DAILY 04/14/23 07/05/23 History docusate sodium 100 mg capsule 100 mg PO BID 04/14/23 07/05/23 History (Stool Softener) magnesium glycinate 100 mg tablet 100 mg PO DAILY 04/14/23 07/05/23 History mecobalamin (vitamin B12) 1,000 1,000 mcg PO DAILY 04/14/23 07/05/23 History mcg chewable tablet (B12 Active) hydrocodone 5 mg-acetaminophen 325 1 tab PO Q8H PRN pain #90 tabs 06/27/23 06/29/23 Rx mg tablet milk thistle seed extract 140 cap PO 06/29/23 History mg-milk thistle 500 mg capsule baclofen 10 mg tablet 10 mg PO TID PRN muscle spasm #90 07/14/23 Rx tabs hydrocodone 5 mg-acetaminophen 325 1 tab PO Q8H PRN pain #90 tabs 07/14/23 Rx mg tablet Allergies Allergy/AdvReac Type Severity Reaction Status Date / Time amlodipine Allergy Unknown Verified 07/05/23 08:11 amoxicillin [From Augmentin] Allergy Unknown Verified 07/05/23 08:11 bacitracin Allergy Unknown Verified 07/05/23 08:11 [From Neosporin ([id number])] clavulanic acid Allergy Unknown Verified 07/05/23 08:11 [From Augmentin] dexamethasone [From TobraDex] Allergy Unknown Verified 07/05/23 08:11 fexofenadine [From Jody] Allergy Unknown Verified 07/05/23 08:11 metformin Allergy Unknown Verified 07/05/23 08:11 neomycin Allergy Unknown Verified 07/05/23 08:11 oxybutynin Allergy Unknown Verified 07/05/23 08:11 polymyxin B Allergy Unknown Verified 07/05/23 08:11 [From Neosporin ([id number])] simvastatin [From Zocor] Allergy Unknown Verified 07/05/23 08:11 tobramycin [From TobraDex] Allergy Unknown Verified 07/05/23 08:11 tramadol Allergy Unknown Verified 07/05/23 08:11 Exam Narrative Exam Narrative: patient reports increased weakness and cramping to bilateral legs with activity and stairs. Notices improvement with forward flexion Constitutional Documenting provider has reviewed patient's vital signs: yes Common normals: no apparent distress, oriented x3, healthy appearing, alert and well nourished General appearance: cooperative HENMT Common normals: normocephalic, hearing grossly normal bilaterally and moist oral mucous membranes Head and scalp: normocephalic Eye Common normals: PERRL Pupil: PERRL Neck & C-Spine Common normals: full ROM General: normal visual inspection Cervical spine: pain with cervical ROM Chest Common normals: inspection of chest normal Respiratory Common normals: normal respiratory effort, no retractions and no use of accessory muscles Back & Pelvis Lumbar spine/lower back: ROM limited, pain with ROM and straight leg raise negative bilaterally Other: right facet loading pain pain over right L4-5 L5-S1 no radiculopathy on exam Extremity Common normals: normal to inspection and full ROM Neuro Common normals: oriented x3, CN's II-XII intact bilaterally, moves all extremities, no focal motor deficits, no sensory deficits noted and deep tendon reflexes 2+ bilaterally Sensorium/orientation: alert Motor exam: strength 5/5 throughout and no movement abnormalities noted Psych Common normals: mental status grossly normal, thought process normal, cooperative, affect normal, speech normal and activity/motor behavior normal Speech: normal speech Thought process: normal thought process Results Additional Findings Additional findings: I have checked an [facility] report on this patient today and there are no aberrancies noted in the prescribing history.?? A drug screen was completed and reviewed within the last year, and if there has not been a drug screen completed we ordered one today to monitor higher risk, state monitored pain medication use. As part of providing excellent, safe, comprehensive care, the following was completed at our patient's visit: 1. A medication reconciliation and review to ensure accurate knowledge of current/active medications, including asking our patients to inform us about any [id number] medications or herbal remedies/nutritional supplements/alternative remedies. 2. A review to specifically ensure our patients have had annual screening for: elevated body mass index (BMI), tobacco use, screening for depression, and screening for unhealthy alcohol use. When screening is concerning, patients are provided with education and the specific recommendation to discuss the concerning health issue and treatment options with their primary care provider. Assessment and Plan Assessment and Plan (1) Lumbar spondylosis: (2) Muscle spasm: (3) Chronic prescription opiate use: (4) Lumbar stenosis with neurogenic claudication: Assessment and Plan: briefly discussed vertiflex, with patients history of osteoporosis and listhesis it is unlikely she will be a candidate but I will discuss it with Dr Ramon Plan proceed with right L4-5 L5-S1 thermal RFA increase duloxetine to 60mg AM and 30mg in the afternoon to assist with pain continue current medication regimen f/u after thermal RFA
== END 2023-07-14 14:21 | disposition home or self-care (01) ==
LOC: PM 14:20
PROVIDERS: Visit Provider Nurse Practitioner
DX: M47.816 Spondylosis without myelopathy or radiculopathy, lumbar region (principal); M62.838 Other muscle spasm; Z79.891 Long term (current) use of opiate analgesic; M48.062 Spinal stenosis, lumbar region with neurogenic claudication
CPT/HCPCS: G0463

== ENCOUNTER 2023-08-09 07:46 | Day surgery (SDC) | payer MEDICARE, SELFPAY ==
--- OUTSIDE RECORDS SUMMARY | 2023-08-09 07:51 | XMS_ITS | CCD ---
Author Name Unknown Address [address] [place] [address] Organization [facility] Care Team Providers Care Student Services Vice President Name Role Phone Shyla Pruett Primary Care Provider NICOLE BO Referring Unavailable SHYLA PRUETT Primary Care Unavailable YE CASTANEDA Referring Unavailable SHYLA PRUETT Primary Care Unavailable Shyla Pruett Primary Care Provider Shyla Pruett Primary Care Provider [phone] Shyla Pruett Primary Care Provider Shyla Pruett MD Primary Care Provider Shyla Pruett MD Primary Care Provider SHYLA PRUETT Referring Unavailable SHYLA PRUETT Primary Care Unavailable OMAR SINGLETON Admitting Unavailable OMAR SINGLETON Attending Unavailable OMAR SINGLETON Surgeon Unavailable [place] Procedure Practitioner Unavailab le NAWRAS, ALI T Attending Unavailable SELF, REFERRED Referring Unavailable SHYLA PRUETT Primary Care Unavailable NAWRAS, ALI T Admitting Unavailable SHYLA PRUETT Primary Care Unavailable NAWRAS, ALI T Admitting Unavailable NAWRAS, ALI T Attending Unavailable SHYLA PRUETT Referring Unavailable NAWRAS, ALI T Attending Unavailable SHYLA PRUETT Referring Unavailable NAWRAS, ALI T Admitting Unavailable SHYLA PRUETT Primary Care Unavailable Shyla Pruett MD Primary Care Provider Shyla PRUETT Primary Care Physician [phone] Shyla Pruett MD Primary Care Provider SREEDHAR FLOYD Attending Unavailab SREEDHAR Nicolas Admitting Unavailab le SHYLA PRUETT Primary Care Unavailable DR CEASAR FAIRBANKS Admitting Unavailable DECKER, ALEJANDRO Consulting Unavailable BROWN, DR SHYLA Genao Primary Care Unavailable FAIRBANKS, DR CEASAR Damico Attending Unavailable FAIRBANKS, DR CEASAR Damico Consulting Unavailable BROWN, DR SHYLA Genao Primary Care Unavailable FAIRBANKS, DR CEASAR Damico Attending Unavailable FAIRBANKS, DR CEASAR Damico Admitting Unavailable FAIRBANKS, DR CEASAR Damico Admitting Unavailable FAIRBANKS, DR CEASAR Damico Consulting Unavailable BROWN, DR SHYLA Genao Primary Care Unavailable FAIRBANKS, DR CEASAR Damico Attending Unavailable DECKER, ALEJANDRO Attending Unavailable DECKER, ALEJANDRO Admitting Unavailable BROWN, DR SHYLA Genao Primary Care Unavailable ZIEBER, DR CARLO Lynne Consulting Unavailable DECKER, ALEJANDRO Consulting Unavailable DECKER, ALEJANDRO Attending Unavailable DECKER, ALEJANDRO Admitting Unavailable ZIEBER, DR CARLO Lynne Consulting Unavailable MISC, DR CHAUDHRY Primary Care Unavailable DECKER, ALEJANDRO Consulting Unavailable GRACY, DR CEASAR Damico Consulting Unavailable BROWN, DR SHYLA Genao Primary Care Unavailable FAIRBANKS, DR CEASAR Damico Attending Unavailable FAIRBANKS, DR CEASAR Damico Admitting Unavailable MALIA MADERA Consulting Unavailable GRACY, DR CEASAR Damico Admitting Unavailable GRACY, DR CEASAR Damico Attending Unavailable MISC, DR CHAUDHRY Primary Care Unavailable FAIRBANKS, DR CEASAR Damico Consulting Unavailable FAIRBANKS, DR CEASAR Damico Attending Unavailable FAIRBANKS, DR CEASAR Damico Admitting Unavailable MISC, DR CHAUDHRY Primary Care Unavailable DECKER, ALEJANDRO Consulting Unavailable BROWN, DR SHYLA Genao Consulting Unavailable FAIRBANKS, DR CEASAR Damico Consulting Unavailable FAIRBANKS, DR CEASAR Damico Attending Unavailable MISC, DR CHAUDHRY Primary Care Unavailable FAIRBANKS, DR CEASAR Damico Admitting Unavailable ALEX STUBBS Unavailable GRACY, DR CEASAR Damico Attending Unavailable DECKER, ALEJANDRO Consulting Unavailable FAIRBANKS, DR CEASAR Damico Admitting Unavailable MISC, DR CHAUDHRY Primary Care Unavailable GRACY, DR CEASAR Damico Consulting Unavailable BROWN, DR SHYLA Genao Primary Care Unavailable FAIRBANKS, DR CEASAR Damico Attending Unavailable FAIRBANKS, DR CEASAR Damico Admitting Unavailable DECKER, ALEJANDRO Consulting Unavailable FAIRBANKS, DR CEASAR Damico Admitting Unavailable FAIRBANKS, DR CEASAR Damico Consulting Unavailable GRACY, DR CEASAR Damico Attending Unavailable MISC, DR CHAUDHRY Primary Care Unavailable TERRANCE DENINS Consulting Unarick carsonable GRACY, DR CEASAR Damico Admitting Unavailable DECKER, ALEJANDRO Consulting Unavailable FAIRBANKS, DR CEASAR Damico Attending Unavailable MISC, DR CHAUDHRY Primary Care Unavailable DECKER, ALEJANDRO Consulting Unavailable BROWN, DR SHYLA Genao Primary Care Unavailable FAIRBANKS, DR CEASAR Damico Attending Unavailable FAIRBANKS, DR CEASAR Damico Admitting Unavailable GRACY, DR CEASAR Damico Consulting Unavailable GRACY, DR CEASAR Damico Attending Unavailable GRAYC, DR CEASAR Damico Admitting Unavailable MISC, DR CHAUDHRY Primary Care Unavailable RAGHAVENDRA MARKS Consulting Unavailable BROWN, DR SHYLA Genao Consulting Unavailable GRACY, DR CEASAR Damico Consulting Unavailable MISC, DR CHAUDHRY Primary Care Unavailable FAIRBANKS, DR CEASAR Damico Admitting Unavailable FAIRBANKS, DR CEASAR Damico Attending Unavailable RAGHAVENDRA MARKS Consulting Unavailable BROWN, DR SHYLA Genao Consulting Unavailable FAIRBANKS, DR CEASAR Damico Attending Unavailable ALEJANDRO DECKER Consulting Unavailable MISC, DR CHAUDHRY Primary Care Unavailable GRACY, DR CEASAR Damico Admitting Unavailable BROWN, DR SHYLA Genao Consulting Unavailable GRACY, DR CEASAR Damico Admitting Unavailable MISC, DR CHAUDHRY Primary Care Unavailable GRACY, DR CEASAR Damico Attending Unavailable FAIRBANKS, DR CEASAR Damico Admitting Unavailable MISC, DR CHAUDHRY Primary Care Unavailable GRACY, DR CEASAR Damico Consulting Unavailable GRACY, DR CEASAR Damico Attending Unavailable BROWN, DR SHYLA Genao Consulting Unavailable Kayla Wilburn Unavailable Unavailable Shyla Pruett MD Primary Care Provider VIGESAA, PANKAJ S Referring Unavailable SHYLA PRUETT Primary Care Unavailable SHYLA PRUETT Referring Unavailable SHYLA PRUETT Primary Care Unavailable SHYLA PRUETT Referring Unavailable SHYLA PRUETT Primary Care Unavailable GLORIAESAA, PANKAJ S Referring Unavailable SHYLA PRUETT Primary Care Unavailable GLORIAESAA, PANKAJ S Referring Unavailable SHYLA PRUETT Primary Care Unavailable GLORIAESAA, PANKAJ S Referring Unavailable SHYLA PRUETT Primary Care Unavailable GLORIAESAA, PANKAJ S Referring Unavailable SHYLA PRUETT Primary Care Unavailable BLANKA CONTRERAS Referring Unavailable SHYLA PRUETT Primary Care Unavailable VIGESAA, PANKAJ S Referring Unavailable SHYLA PRUETT Primary Care Unavailable VIGESAA, PANKAJ S Referring Unavailable SHYLA PRUETT Primary Care Unavailable VIGESAA, PANKAJ S Referring Unavailable SHYLA PRUETT Primary Care Unavailable VIGESAA, PANKAJ S Referring Unavailable SHYLA PRUETT Primary Care Unavailable VIGESAA, PANKAJ S Referring Unavailable SHYLA PRUETT Primary Care Unavailable VIGESAA, PANKAJ S Referring Unavailable SHYLA PRUETT Primary Care Unavailable VIGESAA, PANKAJ S Referring Unavailable SHYLA PRUETT Primary Care Unavailable VIGESAA, PANKAJ S Referring Unavailable SHYLA PRUETT Primary Care Unavailable BLANKA CONTRERAS Referring Unavailable SHYLA PRUETT Primary Care Unavailable BLANKA CONTRERAS Referring Unavailable SHYLA PRUETT Primary Care Unavailable ADELINA MCCORMACK Referring Unavailable SHYLA PRUETT Primary Care Unavailable SHYLA PRUETT Primary Care Unavailable BASILIO GONZALEZ Attending Unavailable BROWN, Shyla Genao Attending Unavailable BROWN, Shyla Genao Attending Unavailable BROWN, Shyla Genao Attending Unavailable BROWN, Shyla Genao Attending Unavailable FLYNN, Shyla Genao Attending Unavailable BROWN, Shyla Genao Admitting Unavailable BROWN, Shyla Genao Admitting Unavailable BROWN, Shyla Genao Attending Unavailable BROWN, Shyla Genao Admitting Unavailable BROWN, Shyla Genao Attending Unavailable Evan Pruett Admitting Unavailable Evan Pruett Attending Unavailable Evan Pruett Referring Unavailable Shyla PRUETT Attending Unavailable Gene, MSN, 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 Yoselin L. Attending U faustoailable Shyla PRUETT Attending Unavailable FLYNN, Shyla Genao Attending Unavailable BROWN, Shyla Genao Attending Unavailable FLYNN, Shyla Genao Attending Unavailable Blanka Contreras Attending Unavailable Shyla PRUETT Attending Unavailable FLYNN, Shyla Genao Attending Unavailable BROWN, Shyla Genao Attending Unavailable BROWN, Shyla Genao Attending Unavailable Gene, MSN, 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 Yoselin L. Attending U Blanka English Attending Unavailable Evan Pruett Attending Unavailable Evan Pruett Referring Unavailable Evan Pruett Admitting Unavailable Allergies Allergy Classification Reported Allergen(s) Allergy Type Date of Onset Reaction(s) Facility Adhesive Tape (2 sources) Adhesive Tape Substance Allergy 02-28-[address] [facility] Aminoglycosides (antibiotic) (2 sources) Neomycin Drug Allergy 07-11-[address] [facility] amLODIPine (2 sources) amLODIPine Drug Allergy [facility] HMG-CoA Reductase Inhibitors (statins) (2 sources) Simvastatin Drug Allergy 12-27-[address] [facility] metFORMIN (2 sources) metFORMIN Drug Allergy 08-05-[address] [facility] oxybutynin (2 sources) oxybutynin Drug Allergy 05-12-[address] [facility] (20 sources) amLODIPine; Translations: [AMLODIPINE BESYLATE] Drug Allergy 03-07-20 19 [facility] (20 sources) Amoxicillin / Clavulanate; Translations: [amoxicillin-cla vulanate] Drug Allergy 07-11-20 18 Nausea (finding) [facility] (20 sources) metFORMIN; Translations: [METFORMIN HCL] Drug Allergy 08-05-19 17 Diarrhea [facility] (20 sources) Neomycin; Translations: [NEOMYCIN] Drug Allergy 07-11-20 18 used in eye-- became swollen and red [facility] (20 sources) Simvastatin; Translations: [simvastatin] Drug Allergy 12-27-19 08 aching 4 statins tried [facility] (20 sources) Adhesive Tape Propensity to adverse reactions to drug 02-28-[address] [place] [address], [place] (20 sources) oxybutynin; Translations: [OXYBUTYNIN] Drug Allergy 05-12-20 Blister (morphologic abnormality), Orbital edema (disorder) [place] [address] (20 sources) Tobramycin-Dexam ethasone; Translations: [TOBRAMYCIN-DEXA METHASONE] Propensity to adverse reactions to drug 05-12-[address] (6 sources) Adhesive Tape; Translations: [TAPE] Propensity to adverse reactions (disorder) 03-20-20 Cutaneous eruption (morphologic abnormality) [facility] (20 sources) amLODIPine; Translations: [AMLODIPINE] Drug Allergy 03-20-20 hypotension [facility] (2 sources) Amoxicillin / Clavulanate; Translations: [AUGMENTIN] Drug Allergy 03-12-20 [facility] (2 sources) Bacitracin / Neomycin / Polymyxin B; Translations: [NEOSPORIN] Drug Allergy 03-20-20 [facility] (20 sources) Dexamethasone / Tobramycin; Translations: [TOBRADEX] Drug Allergy 03-20-20 Blister (morphologic abnormality), Orbital edema (disorder) [facility] (1 source) Glucagon; Translations: [GLUCAGON] Drug Allergy 03-12-20 [facility] (1 source) Hmg-Coa Reductase Inhibitors (Statins); Translations: [JGCIDEI-TYK-AGQ REDUCTASE INHIBITORS] Propensity to adverse reactions (disorder) 03-12-20 [facility] (20 sources) metFORMIN; Translations: [METFORMIN] Drug Allergy 03-20-20 diarrhea [facility] (3 sources) Simvastatin; Translations: [ZOCOR] Drug Allergy 03-20-20 [facility] (20 sources) Amoxicillin; Translations: [amoxicillin] Drug Allergy Cutaneous hypersensitivity (disorder) [facility] Work Phone: (20 sources) bacitracin / neomycin / polymyxin b; Translations: [bacitracin/neom ycin/polymyxin B ophthalmic] Drug Allergy [facility] (20 sources) traMADol; Translations: [tramadol] Drug Allergy 04-16-20 22 Abdominal pain (finding) [facility] Work Phone: (1 source) NEOMYCIN-POLYMYX IN-GRAMICIDIN; Translations: [NEOMYCIN-POLYMY NATALIE-GRAMICIDIN] Propensity to adverse reactions to drug (disorder) 04-16-20 [facility] (1 source) Amoxicillin / Clavulanate Drug Allergy [facility] (1 source) fexofenadine Drug Allergy [facility] (1 source) Neomycin Drug Allergy [facility] (1 source) oxybutynin Drug Allergy [facility] (1 source) traMADol Drug Allergy [facility] (19 sources) Alendronate; Translations: [alendronate] Drug Allergy Muscle pain (finding), Joint pain (finding) [facility] (17 sources) Tape 1 Drug allergy Cutaneous erupti on (morphologic abnormality) [facility] Comment on above: tapes now are ok thi s was years ago (16 sources) Acetaminophen / oxyCODONE; Translations: [acetaminophen-o xycodone] Drug Allergy Nausea (finding), Hallucinations (finding) [facility] (8 sources) rosuvastatin; Translations: [rosuvastatin] Drug Allergy Muscle pain (finding) [facility] (1 source) Alendronate; Translations: [Fosamax] Drug Allergy [facility] (1 source) No Known Medication Allergies; Translations: [No Known Medication Allergies] Propensity to adverse reactions (disorder) [facility] Rep[facility] Medications Current Medications Medication Drug Class(es) Dates Sig (Normalized) Sig (Original) 0.5 ML tirzepatide 20 MG/ML Auto-Injector [Mounjaro] (1 source) Start: 07-29-2023 inject 10 mg by subcutaneous injection every week Mounjaro 10 mg/0.5 mL subcutaneous solution 10 mg, SubCutaneous, qWeek, # 4 EA, Refills(s) 0, Pharmacy: [facility], 162.6, cm, 07/29/23 9:26:00 EST, Height/Length Dosing, 114.8, kg, 07/29/23 9:26:00 EST, Weight Dosing Start Date: 07/29/23 Status: Ordered 0.5 ML tirzepatide 5 MG/ML Auto-Injector [Mounjaro] (4 sources) Start: 03-29-2023 inject 2.5 mg by subcutaneous injection every week Mounjaro 2.5 mg/0.5 mL subcutaneous solution 2.5 mg, SubCutaneous, qWeek, # 4 EA, Refills(s) 0, Pharmacy: [facility], 160, cm, 03/28/23 19:32:00 EDT, Height/Length Dosing, 118, kg, 02/14/23 11:35:00 EDT, Weight Dosing Start Date: 03/29/23 Status: Ordered Start: 03-28-2023 inject 2.5 mg by sub cutaneous injection every week Mounjaro 2.5 mg/0.5 mL subcutaneous solution 2.5 mg, SubCutaneous, qWeek, # 4 EA, Refills(s) 0, Pharmacy: [facility], 160, cm, 03/28/23 19:32:00 EDT, Height/Length Dosing, 118, kg, 02/14/23 11:35:00 EDT, Weight Dosing Start Date: 03/28/23 Status: Ordered acetaminophen 500 mg oral tablet (20 sources) take 2 tablets by mouth every six hours as needed for pain acetaminophen (TYLENOL) 500 MG tablet Take 1,000 mg by mouth every 6 hours as needed for Pain 0 Active acetaminophen 325 mg / HYDROcodone bitartrate 5 mg oral tablet (20 sources) Opioid Agonist Start: acetaminophen-hydrocod one 325 mg-5 mg oral tablet 1 tab(s), Oral, TID Pain 4-7, Refill(s) 0 Start Date: 03/28/23 Status: Ordered Start: 01-12-2023 take 1 tablet by drake th twice daily as needed acetaminophen-hydrocodone 325 mg-5 mg or al tablet 1 tab(s), Oral, BID, Refill(s) 0, 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 Start Date: 01/12/23 Status: Ordered Start: 11-05-2022 take 1 tablet by drake th every four to six hours as needed for pain acetaminophen-hydrocodone 325 mg-5 mg or al tablet See Instructions, Refill(s) 0, 1 tab(s) every 4-6 hours as needed for pain for 7 days Start Date: 11/05/22 Status: Ordered Start: 02-02-2018 take 1 tablet by drake th twice daily acetaminophen-hydrocodone 325 mg-5 mg or al tablet 1 tab(s), Oral, BID, Refill(s) 0, Pain Start Date: 02/02/18 Status: Ordered take 1 tablet by drake th three times daily as needed for pain HYDROcodone-acetaminophen (NORCO) 5-325 MG per tablet Take 1 tablet by mouth 3 times daily as needed for Pain. 0 Active take 1 tablet by drake th every eight hours as needed HYDROcodone-acetaminophen (NORCO) 5-325 mg per tablet Take 1 tablet by mouth every 8 (eight) hours as needed for pain . 0 Active alcohol prep pad (4 sources) Start: 12-06-2019 alcohol prep pad alcohol prep pad, See Instructions, 360 pad(s), 3, test QID, [facility], Supply, 162.56, cm, 08/02/19 11:04:00 EST, Height/Length Measured, 99.7, kg, 09/06/19 15:16:00 EST, Weight Measured Start Date: 12/06/19 Status: Ordered alendronic acid 70 mg oral tablet (15 sources) Bisphosphonate Start: 01-21-2022 End: 02-04-2022 Fosamax 70 mg Tab 70 mg = 1 tab(s), Oral, q7day, X 14 day(s), # 2 tab(s), Refills(s) 0, Pharmacy: [facility], 160, cm, 01/21/22 13:23:00 EDT, Height/Length Dosing, 116.6, kg, 01/21/22 13:23:00 EDT, Weight Dosing Start Date: 01/21/22 Stop Date: 02/04/22 Status: Ordered amylases 613269 unt / endopeptidases 286460 unt / lipase 63845 unt delayed release oral capsule (1 source) Start: 07-03-2020 take 2 capsules by mouth three times daily CREON 04386 units CPEP delayed release capsule Take 2 capsules by mouth 3 times daily 0 07/03/2020 Active ascorbic acid 500 mg chewable tablet (20 sources) Vitamin C take 2 tablets by mouth twice daily Ascorbic Acid (VITAMIN C) 500 MG CHEW Take 2 tablets by mouth 2 times daily 0 Active ascorbic acid 60 mg / beta carotene 5000 unt / copper sulfate 40 mg / dl-alpha tocopheryl acetate 30 unt / sodium selenite 0.04 mg / zinc oxide 40 mg oral tablet (13 sources) Vitamin C take 1 tablet by mouth once daily in the morning Multiple Vitamins-Minerals (ONE-A-DAY PROACTIVE 65+) TABS Take 1 tablet by mouth every morning 0 Active ascorbic acid 200 mg / beta carotene 1000 unt / cuprous oxide 2 mg / dl-alpha tocopheryl acetate 60 unt / lutein 2 mg / sodium selenate 0.055 mg / zinc oxide 40 mg oral tablet (20 sources) Vitamin C take 1 tablet by mouth once daily in the morning Multiple Vitamins-Minerals (OCUVITE-LUTEIN) TABS oral tablet Take 1 tablet by mouth every morning 0 Active B Yvrowhi-T-Ubozu Acid (SUPER B COMPLEX/FA/VIT C) TABS (20 sources) take 1 tablet by mouth once daily in the morning B Qgbdukd-D-Dptgw Acid (SUPER B COMPLEX/FA/VIT C) TABS Take 1 tablet by mouth every morning 0 Active baclofen 10 mg oral tablet (20 sources) gamma-Aminobutyric Acid-ergic Agonist Start: 09-23-2022 take 1 tablet by mouth three times daily as needed for pain baclofen 10 mg Tab 10 mg = 1 tab(s), Oral, TID, PRN Muscle pain, Refills(s) 0 Start Date: 09/23/22 Status: Ordered biotin 10 mg oral capsule (20 sources) take 1 capsule by mouth once daily Biotin 10 MG CAPS Take 1 capsule by mouth daily 0 Active take 1 capsule by mouth once shelly ly biotin 10,000 mcg cap Take 1 capsule by mouth daily . 0 Active calcium carbonate 600 mg oral capsule (20 sources) take 600 mg by mouth once daily Calcium Carbonate (CALCIUM 600 PO) Take 600 mg by mouth daily 0 Active carvedilol 25 mg oral tablet (20 sources) alpha-Adrenergic Clare, beta-Adrenergic Clare Start: 11-05-2021 carvedilol (COREG) 25 MG tablet TAKE 1/2 TABLET TWICE DAILY WITH MEALS 90 tablet 3 11/05/2021 Active Start: 11-27-2020 carvedilol (CO REG) 25 MG tablet TAKE 1/2 TABLET TWICE DAILY WITH MEALS 90 tablet 3 11/27/2020 Active Start: 01-28-2020 carvedilol (CO REG) 25 MG tablet TAKE 1/2 TABLET TWICE DAILY WITH MEALS 90 tablet 3 01/28/2020 Active Start: 04-12-2019 take 0.5 tablet by m outh twice daily at mealtime carvedilol (COREG) 25 MG tablet Take 0.5 tablets by mouth 2 times daily (with meals) 90 tablet 3 04/12/2019 Active Start: 03-23-2019 carvedilol 25 mg Tab 12.5 mg = 0.5 tab(s), Oral, BID, Refills(s) 0, High blood pressure Start Date: 03/23/19 Status: Ordered Start: 11-09-2018 take 1 tablet by drake th twice daily carvedilol (COREG) 25 MG tablet Take 1 tablet by mouth 2 (two) times a day . 0 01/26/2019 Active celecoxib 100 mg oral capsule (4 sources) Nonsteroidal Anti-inflammatory Drug Start: 10-06-2022 take 1 capsule by mouth once daily as needed for pain CeleBREX 100 mg Cap 100 mg = 1 cap(s), Oral, Daily, PRN for pain, # 30 cap(s), Refills(s) 0, Pharmacy: [facility], 160, cm, 09/23/22 12:20:00 EST, Height/Length Dosing, 113.4, kg, 09/23/22 12:20:00 EST, Weight Dosing Start Date: 10/06/22 Status: Ordered cephalexin 500 mg oral capsule (1 source) Cephalosporin Antibacterial Start: 10-06-2022 End: 10-13-2022 take 1 capsule by mouth every eight hours Keflex 500 mg Cap 500 mg = 1 cap(s), Oral, q8hr, X 7 day(s), # 21 cap(s), Refills(s) 0, Pharmacy: [facility], 160, cm, 09/23/22 12:20:00 EST, Height/Length Dosing, 113.4, kg, 09/23/22 12:20:00 EST, Weight Dosing Start Date: 10/06/22 Stop Date: 10/13/22 Status: Ordered cetirizine hydrochloride 10 mg oral capsule (20 sources) Histamine-1 Receptor Antagonist Start: 01-21-2022 take 1 capsule by mouth once daily as needed cetirizine 10 mg oral capsule 10 mg = 1 cap(s), Oral, Daily, PRN for allergy symptoms, Refills(s) 0 Start Date: 01/21/22 Status: Ordered Start: 03-15-2019 take 1 tablet by drake once daily cetirizine (ZYRTEC) 10 MG tablet Take 10 mg by mouth daily 0 03/15/2019 Active cholecalciferol 0.05 mg oral capsule (20 sources) Vitamin D take 1 capsule by mouth once daily Cholecalciferol (VITAMIN D3) 2000 units CAPS Take 1 capsule by mouth nightly 0 Active chromium picolinate 0.1 mg / cinnamon bark 500 mg oral capsule (20 sources) take 1 capsule by mouth once daily in the morning Chromium-Cinnamon 100-500 MCG-MG CAPS Take 1 capsule by mouth every morning 0 Active Cranberry preparation (2 sources) Non-Standardized Food Allergenic Extract, Non-Standardized Plant Allergenic Extract Start: 04-14-20 Cymbalta 30 mg Cap-EC (11 sources) Start: 04-28-20 take 1 capsule by mouth once daily Cymbalta 30 mg Cap-EC 30 mg = 1 cap(s), Oral, Daily, # 90 cap(s), Refills(s) 1, Pharmacy: [facility], 160, cm, 01/21/22 13:23:00 EDT, Height/Length Dosing, 116.6, kg, 01/21/22 13:23:00 EDT, Weight Dosing Start Date: 04/28/22 Status: Ordered Start: 09-29-2021 take 1 capsule by mo uth once daily Cymbalta 30 mg Cap-EC 30 mg = 1 cap(s), Oral, Daily, # 90 cap(s), Refills(s) 1, Pharmacy: [facility], 160, cm, 07/03/21 14:40:00 EST, Height/Length Dosing, 110, kg, 07/03/21 14:41:00 EST, Weight Dosing Start Date: 09/29/21 Status: Ordered dilTIAZem hydrochloride 60 mg oral tablet (20 sources) Calcium Channel Clare Start: 02-23-2019 End: 10-07-2022 take 1 tablet by mouth three times daily Cardizem 60 mg Tab 60 mg = 1 tab(s), Oral, TID, Refills(s) 0, High blood pressure Start Date: 03/23/19 Status: Ordered docusate sodium 100 mg oral capsule (20 sources) Start: 10-06-2022 take 1 capsule by mouth twice daily as needed for constipation Colace 100 mg Cap 100 mg = 1 cap(s), Oral, BID, PRN for constipation, # 20 cap(s), Refills(s) 0, Pharmacy: [facility], 160, cm, 09/23/22 12:20:00 EST, Height/Length Dosing, 113.4, kg, 09/23/22 12:20:00 EST, Weight Dosing Start Date: 10/06/22 Status: Ordered doxepin hydrochloride 10 mg oral capsule (10 sources) Tricyclic Antidepressant Start: 09-23-2022 take 1 capsule by mouth once daily at bedtime doxepin 10 mg Cap 10 mg = 1 cap(s), Oral, Once a day (at bedtime), Refills(s) 0, Other (see comment) Start Date: 09/23/22 Status: Ordered doxycycline hyclate 100 mg oral tablet (20 sources) Tetracycline-class Drug take 1 tablet by mouth twice daily doxycycline hyclate (VIBRA-TABS) 100 MG tablet Take 100 mg by mouth 2 times daily 0 Active DULoxetine 60 mg delayed release oral capsule (20 sources) Serotonin and Norepinephrine Reuptake Inhibitor Start: 05-12-2023 take 1 capsule by mouth once daily duloxetine 60 mg oral delayed release capsule 60 mg = 1 cap(s), Oral, Daily, # 90 cap(s), Refills(s) 0, Pharmacy: [facility], 160, cm, 04/28/23 14:54:00 EDT, Height/Length Dosing, 120.7, kg, 04/19/23 14:26:00 EDT, Weight Dosing Start Date: 05/12/23 Status: Ordered Start: 02-04-2023 take 1 capsule by mo [facility] once daily duloxetine 30 mg oral delayed release capsule 30 mg = 1 cap(s), Oral, Daily, # 90 cap(s), Refills(s) 1, Pharmacy: [facility], 160, cm, 01/12/23 14:21:00 EDT, Height/Length Dosing, 114, kg, 01/12/23 14:21:00 EDT, Weight Dosing Start Date: 02/04/23 Status: Ordered Start: 05-02-2020 take 1 capsule by [facility] once daily DULoxetine (CYMBALTA) 30 MG extended release capsule TAKE 1 CAPSULE BY MOUTH EVERY DAY 0 05/02/2020 Active echinacea preparation 400 mg oral capsule (20 sources) take 1 capsule by mouth once daily Echinacea 400 MG CAPS Take 400 mg by mouth daily 0 Active ferrous gluconate 256 mg oral tablet (11 sources) Start: 01-21-2022 ferrous gluconate 256 mg (28 mg elemental iron) oral tablet 256 mg = 1 tab(s), Oral, Daily, Refills(s) 0, Prophylaxis Start Date: 01/21/22 Status: Ordered ferrous sulfate 325 mg delayed release oral tablet (20 sources) Start: 10-02-2020 ferrous sulfate (FE TABS 325) 325 (65 Fe) MG EC tablet Take 325 mg by mouth 0 10/02/2020 Active flecainide acetate 50 mg oral tablet (20 sources) Antiarrhythmic Start: 11-05-2021 flecainide (TAMBOCOR) 50 MG tablet TAKE 1 TABLET EVERY DAY 90 tablet 3 11/05/2021 Active Start: 11-05-2021 flecainide (TA MBOCOR) 100 MG tablet TAKE 1 TABLET EVERY DAY 90 tablet 3 11/05/2021 Active Start: 11-27-2020 flecainide (TA MBOCOR) 50 MG tablet TAKE 1 TABLET EVERY DAY 90 tablet 3 11/27/2020 Active Start: 11-27-2020 flecainide (TA MBOCOR) 100 MG tablet TAKE 1 TABLET EVERY DAY 90 tablet 3 11/27/2020 Active Start: 09-25-2020 take 0.5 tablet by m outh once daily in the morning, then take 1 tablet by mouth once daily in the evening flecainide 100 mg Tab See Instructions, 0.5 tab po QAM and 1 tab po QPM, Refills(s) 0 Start Date: 09/25/20 Status: Ordered Start: 09-05-2020 flecainide (TA MBOCOR) 100 MG tablet Take 1 tablet twice a day 180 tablet 3 09/05/2020 Active Start: 01-28-2020 flecainide (TA MBOCOR) 50 MG tablet TAKE 1 TABLET EVERY DAY 90 tablet 3 01/28/2020 Active Start: 01-28-2020 End: 09-05-2020 flecainide (TAMBOCOR) 100 MG tablet TAKE 1 TABLET EVERY DAY 90 tablet 3 01/28/2020 09/05/2020 Discontinued (REORDER) Start: 04-12-2019 take 1 tablet by drake th once daily flecainide (TAMBOCOR) 50 MG tablet Take 1 tablet by mouth daily 90 tablet 3 04/12/2019 Active Start: 04-12-2019 take 1 tablet by drake th once daily flecainide (TAMBOCOR) 100 MG tablet Take 1 tablet by mouth daily 90 tablet 3 04/12/2019 Active flecainide (TAMB OCOR) 150 MG tablet Take 75 mg by mouth 3 (three) times a day . 0 Active fluconazole 150 mg oral tablet (16 sources) Azole Antifungal Start: 10-26-2022 Diflucan 150 mg Tab 150 mg = 1 tab(s), Oral, Once, repeat after 3 days x1 if not improving, # 2 tab(s), Refills(s) 1, Pharmacy: [facility], 160, cm, 09/23/22 12:20:00 EST, Height/Length Dosing, 116.4, kg, 10/07/22 5:12:00 EST, Weight Dosing Start Date: 10/26/22 Status: Ordered Start: 02-28-2020 End: 03-06-2020 take 1 tablet by mouth once daily fluconazole (DIFLUCAN) 100 MG tablet Take 1 tablet by mouth daily for 7 days 7 tablet 0 02/28/2020 03/06/2020 Active furosemide 20 mg oral tablet (20 sources) Loop Diuretic Start: 11-02-2022 take 1 tablet by mouth once daily furosemide 20 mg Tab 20 mg = 1 tab(s), Oral, Daily, Refills(s) 0 Start Date: 11/08/22 Status: Ordered Start: 03-04-2020 furosemide (LA SIX) 20 MG tablet Take 1 tablet by mouth as needed (if wt is up 3-4 will take one lasix) 30 tablet 5 03/04/2020 Active glucometer (4 sources) Start: 12-06-2019 glucometer glucometer, See Instructions, 1 EA, 0, test QID, [facility], Supply, 162.56, cm, 08/02/19 11:04:00 EST, Height/Length Measured, 99.7, kg, 09/06/19 15:16:00 EST, Weight Measured Start Date: 12/06/19 Status: Ordered hydroCHLOROthiazide 25 mg / losartan potassium 100 mg oral tablet (2 sources) Thiazide Diuretic, Angiotensin 2 Receptor Clare Start: 01-18-2019 take 0.5 tablet by mouth once daily losartan-hydrochlo rothiazide (HYZAAR) 100-25 mg per tablet Take 0.5 tablets by mouth daily . 0 01/18/2019 Active 3 ml insulin glargine 100 unt/ml pen injector (20 sources) Insulin Analog Start: 05-05-2023 Lantus Solostar Pen 100 units/mL subcutaneous solution 47 unit(s), SubCutaneous, Once a day (at bedtime), # 45 mL, Refills(s) 3, Pharmacy: [facility], 160, cm, 04/28/23 14:54:00 EDT, Height/Length Dosing, 120.7, kg, 04/19/23 14:26:00 EDT, Weight Dosing Start Date: 05/05/23 Status: Ordered Start: 05-05-2023 Lantus Solosta r Pen 100 units/mL subcutaneous solution 25 unit(s), SubCutaneous, BID, # 45 mL, Refills(s) 3, Pharmacy: [facility], 160, cm, 04/28/23 14:54:00 EDT, Height/Length Dosing, 120.7, kg, 04/19/23 14:26:00 EDT, Weight Dosing Start Date: 05/05/23 Status: Ordered Start: 07-19-2022 Lantus Solosta r Pen 100 units/mL subcutaneous solution 25 unit(s), SubCutaneous, BID, # 45 mL, Refills(s) 3, Pharmacy: [facility], 160, cm, 07/12/22 13:44:00 EST, Height/Length Dosing, 116, kg, 07/12/22 13:44:00 EST, Weight Dosing Start Date: 07/19/22 Status: Ordered Start: 07-19-2022 Lantus Solosta r Pen 100 units/mL subcutaneous solution 30 unit(s), SubCutaneous, BID, # 45 mL, Refills(s) 3, Pharmacy: [facility], 160, cm, 07/12/22 13:44:00 EST, Height/Length Dosing, 116, kg, 07/12/22 13:44:00 EST, Weight Dosing Start Date: 07/19/22 Status: Ordered Start: 11-23-2021 Lantus Solosta r Pen 100 units/mL subcutaneous solution 30 unit(s), SubCutaneous, BID, # 45 mL, Refills(s) 3, Pharmacy: [facility], 160, cm, 07/03/21 14:40:00 EST, Height/Length Dosing, 110, kg, 07/03/21 14:41:00 EST, Weight Dosing Start Date: 11/23/21 Status: Ordered Start: 11-23-2021 Lantus Solosta r Pen 100 units/mL subcutaneous solution 30 unit(s), SubCutaneous, BID, # 45 mL, Refills(s) 3, Pharmacy: [facility], 160, cm, 07/03/21 14:40:00 EST, Height/Length Dosing, 110, kg, 07/03/21 14:41:00 EST, Weight Dosing Start Date: 11/23/21 Status: Ordered insulin glargine (LANTUS) 100 UNIT/ML injection vial Inject 50 Units into the skin nightly 0 Active krill oil 500 mg oral capsule (20 sources) take 1 capsule by mouth once daily in the morning Krill Oil [place]-3 500 MG CAPS Take 1 capsule by mouth every morning 0 Active KRILL TRG-ZIGZH-6-DHA-EPA ORAL (2 sources) KRILL DBD-IRLSL-6-DHA-EPA ORAL Take 1 capsule by mouth . 0 Active lidocaine 0.05 mg/mg medicated patch (7 sources) Antiarrhythmic, Amide Local Anesthetic Start: 03-28-20 Lidoderm 5% Patch 1 patch(es), Topical, Daily, 30 patch(es), Refill(s) 0, apply 12 hours on and 12 hours off daily, [facility], 160, cm, 03/28/23 19:32:00 EDT, Height/Length Dosing, 118, kg, 02/14/23 11:35:00 EDT, Weight Dosing Start Date: 03/28/23 Status: Ordered 3 ml liraglutide 6 mg/ml pen injector (20 sources) GLP-1 Receptor Agonist Start: 07-19-20 inject 2.4 mg by subcutaneous injection once daily Victoza 6 mg/mL subcutaneous injection 2.4 mg, SubCutaneous, Daily, 90 day supply, # 36 mL, Refills(s) 3, Pharmacy: [facility], 160, cm, 07/12/22 13:44:00 EST, Height/Length Dosing, 116, kg, 07/12/22 13:44:00 EST, Weight Dosing Start Date: 07/19/22 Status: Ordered Start: 11-24-2021 inject 2.4 mg by sub cutaneous injection once daily Victoza 6 mg/mL subcutaneous injection 2.4 mg, SubCutaneous, Daily, 90 day supply, # 36 mL, Refills(s) 1, Pharmacy: [facility], 160, cm, 07/03/21 14:40:00 EST, Height/Length Dosing, 110, kg, 07/03/21 14:41:00 EST, Weight Dosing Start Date: 11/24/21 Status: Ordered Start: 11-24-2021 inject 1.8 mg by sub cutaneous injection once daily Victoza 6 mg/mL subcutaneous injection 1.8 mg, SubCutaneous, Daily, 90 day supply, # 36 mL, Refills(s) 1, Pharmacy: [facility], 160, cm, 07/03/21 14:40:00 EST, Height/Length Dosing, 110, kg, 07/03/21 14:41:00 EST, Weight Dosing Start Date: 11/24/21 Status: Ordered Start: 09-25-2020 Liraglutide (V ICTOZA) 18 MG/3ML SOPN SC injection Inject 2.4 mg into the skin 0 09/25/2020 Active Start: 12-18-2018 VICTOZA 3-DEIRDRE 0.6 mg/0.1 mL (18 mg/3 mL) Pen 1.8 mg by abdominal subcutaneous route daily . 0 12/18/2018 Active magnesium oxide 400 mg oral tablet (20 sources) Start: 09-25-2020 take 1 tablet by mouth twice daily magnesium oxide 400 mg Tab 400 mg = 1 tab(s), Oral, BID, Refills(s) 0, Prophylaxis Start Date: 09/25/20 Status: Ordered take 1 tablet by mouth once chase y Magnesium Oxide 500 MG TABS Take 1 tablet by mouth nightly 0 Active meclizine hydrochloride 25 mg oral tablet (2 sources) Antiemetic Start: 09-23-2020 End: 10-03-2020 take 1 tablet by mouth three times daily as needed for dizziness meclizine (ANTIVERT) 25 MG tablet Take 1 tablet by mouth 3 times daily as needed for Dizziness 30 tablet 0 09/23/2020 10/03/2020 Active Start: 09-23-2020 End: 09-23-2020 meclizine (ANTIVERT) tablet 50 mg methylPREDNISolone 4 mg oral tablet (2 sources) Corticosteroid Start: 01-03-2023 End: 01-09-2023 Medrol 4 mg Tab = 1 packet(s), Oral, As Directed, as directed on package labeling, X 6 day(s), # 21 tab(s), Refills(s) 0, Pharmacy: [facility], 160, cm, 01/03/23 11:32:00 EDT, Height/Length Dosing, 112.3, kg, 12/20/22 13:36:00 EDT, Weight Dosing Start Date: 01/03/23 Stop Date: 01/09/23 Status: Ordered 24 hr mirabegron 25 mg extended release oral tablet (1 source) beta3-Adrenergic Agonist Start: 05-12-2020 take 1 tablet by mouth once daily mirabegron (MYRBETRIQ) 25 MG TB24 Indications: Urge incontinence , Nocturia Take 1 tablet by mouth daily 30 tablet 11 05/12/2020 Active Multiple Vitamins-Minerals (ONE-A-DAY PROACTIVE 65+) TABS (20 sources) take 1 tablet by mouth once daily in the morning Multiple Vitamins-Mineral s (ONE-A-DAY PROACTIVE 65+) TABS Take 1 tablet by mouth every morning 0 Active multivit,hlkhnnl-iud-kl lic acd (ONE-A-DAY PROACTIVE 65 PLUS) 200 mcg Tab (2 sources) take 1 tablet by mouth once daily multivit,calcium -min-folic acd (ONE-A-DAY PROACTIVE 65 PLUS) 200 mcg Tab Take 1 tablet by mouth daily . 0 Active niacin 500 mg extended release oral tablet (20 sources) Nicotinic Acid take 1 tablet by mouth once daily in the morning niacin (SLO-NIACIN) 500 MG extended release tablet Take 500 mg by mouth every morning 0 Active NONFORMULARY (20 sources) take 1 capsule by mouth once daily NONFORMULARY Take 1 capsule by mouth nightly Naturals Calcium plus vitamin D (Each capsule contain calcium carbonate 600 mg and vitamin D3 500 internation units) 0 Active take 1 tablet by drake th twice daily, then take 1 tablet by mouth once NONFORMULARY Take 1 tablet by mouth 2 ti mes daily Super Collagen + C (contains 833 mcg biotin, vitamin C 10 mg, NeoCell Collagen Type 1 & 3 1000 mg per tablet) 0 Active nystatin 359297 unt/ml topical cream (15 sources) Polyene Antifungal Start: 07-29-2023 nystatin To p 100,000 units/g Crm 15 gram 1 seth, Topical, BID, 30 gm, Refill(s) 1, [facility], 162.6, cm, 07/29/23 9:26:00 EST, Height/Length Dosing, 114.8, kg, 07/29/23 9:26:00 EST, Weight Dosing Start Date: 07/29/23 Status: Ordered Start: 10-26-2022 nystatin Top 1 00,000 units/g Crm 15 gram 1 seth, Topical, BID, 30 gm, Refill(s) 1, [facility], 160, cm, 09/23/22 12:20:00 EST, Height/Length Dosing, 116.4, kg, 10/07/22 5:12:00 EST, Weight Dosing Start Date: 10/26/22 Status: Ordered [place]-3 Fatty Acids (FISH OIL) 1200 MG CPDR (20 sources) take 2 capsules by mouth once daily [place]-3 Fatty Acids (FISH OIL) 1200 MG CPDR Take 2 capsules by mouth nightly 0 Active 2 ml ondansetron 2 mg/ml injection (1 source) Serotonin-3 Receptor Antagonist Start: 09-23-19 ondansetron (ZOFRAN) injection 4 mg pantoprazole 40 mg delayed release oral tablet (20 sources) Proton Pump Inhibitor Start: 10-03-19 pantoprazole (PROTONIX) 40 MG tablet Take 40 mg by mouth 0 10/02/2020 Active prednisoLONE acetate 10 mg/ml ophthalmic suspension (20 sources) Corticosteroid prednisoLONE acetate (PRED FORTE) 1 % ophthalmic suspension 1 drop 4 times daily 0 Active Psyllium (20 sources) Psyllium (METAMU CIL FIBER PO) Take 1 Package by mouth 2 times daily 0 Active ramipril 5 mg oral capsule (20 sources) Angiotensin Converting Enzyme Inhibitor Start: 05-05-20 take 1 capsule by mouth once daily ramipril 5 mg Cap 5 mg = 1 cap(s), Oral, Daily, # 90 cap(s), Refills(s) 1, Pharmacy: [facility], 160, cm, 04/28/23 14:54:00 EDT, Height/Length Dosing, 120.7, kg, 04/19/23 14:26:00 EDT, Weight Dosing Start Date: 05/05/23 Status: Ordered Start: 01-11-2023 take 1 capsule by [facility] once daily ramipril 5 mg Cap 5 mg = 1 cap(s), Oral, Daily, # 90 cap(s), Refills(s) 1, Pharmacy: [facility], 160, cm, 01/03/23 11:32:00 EDT, Height/Length Dosing, 115.9, kg, 01/03/23 13:25:00 EDT, Weight Dosing Start Date: 01/11/23 Status: Ordered Start: 10-12-2022 take 1 capsule by [facility] once daily ramipril 5 mg Cap 5 mg = 1 cap(s), Oral, Daily, # 90 cap(s), Refills(s) 0, Pharmacy: [facility], 160, cm, 09/23/22 12:20:00 EST, Height/Length Dosing, 116.4, kg, 10/07/22 5:12:00 EST, Weight Dosing Start Date: 10/12/22 Status: Ordered Start: 07-12-2022 take 1 capsule by mo [facility] once daily ramipril 5 mg Cap 5 mg = 1 cap(s), Oral, Daily, # 90 cap(s), Refills(s) 0, Pharmacy: [facility], 160, cm, 07/12/22 13:44:00 EST, Height/Length Dosing, 116, kg, 07/12/22 13:44:00 EST, Weight Dosing Start Date: 07/12/22 Status: Ordered Start: 06-14-2019 ramipril (ANTONY CE) 2.5 MG capsule TAKE 1 CAPSULE EVERY DAY 90 capsule 3 04/17/2020 Active rivaroxaban 20 mg oral tablet (20 sources) Factor Xa Inhibitor Start: 12-12-2019 take 1 tablet by mouth once daily Xarelto 20 mg oral tablet 20 mg = 1 tab(s), Oral, Daily, Refills(s) 0, Blood Thinner Start Date: 12/12/19 Status: Ordered Start: 04-16-2019 [facility] rivaroxaban (XARELTO) 20 MG TABS tablet Take 1 tablet by mouth daily (with breakfast) 90 tablet 3 04/16/2019 Active rosuvastatin calcium 10 mg oral tablet (20 sources) HMG-CoA Reductase Inhibitor Start: 10-01-2021 take 0.5 tablet by mouth once daily rosuvastatin 10 mg Tab 0.5 tab, Oral, Daily, # 45 tab(s), Refills(s) 1, Pharmacy: [facility], 160, cm, 01/21/22 13:23:00 EDT, Height/Length Dosing, 116.6, kg, 01/21/22 13:23:00 EDT, Weight Dosing Start Date: 04/27/22 Status: Ordered take 5 mg by mouth once daily ro suvastatin (CRESTOR) 10 MG tablet Take 5 mg by mouth daily 0 Active 5 ml sodium chloride 9 mg/ml injection (3 sources) Start: 03-02-2022 End: 03-03-2022 sodium chloride (PF) 0.9 % injection 10 mL Start: 03-07-2019 End: 03-07-2019 250 mL, Intravenous, at 937. 5 mL/hr, As needed, IF patient heart rate is less than 50 BPM and Systolic BP is less than 90 mmHG, notify Apprenticeship Consultant, place patient in Trendelenberg, and give 0.9% NaCl bolus, Starting 03/07/19 at 1101, For 1 dose Start: 03-07-2019 End: 03-07-2019 sodium chloride 0.9% (NS) tirzepatide 7.5 mg/0.5 mL subcutaneous solution (2 sources) Start: 06-27-2023 inject 7.5 mg by subcutaneous injection every week tirzepatide 7.5 mg/0.5 mL subcutaneous solution 7.5 mg, SubCutaneous, qWeek, # 4 EA, Refills(s) 0, Pharmacy: [facility], 160, cm, 04/28/23 14:54:00 EDT, Height/Length Dosing, 120.7, kg, 04/19/23 14:26:00 EDT, Weight Dosing Start Date: 06/27/23 Status: Ordered tobramycin 3 mg/ml ophthalmic solution (20 sources) Aminoglycoside Antibacterial take 1 drop(s) into the eye(s) every four hours tobramycin (TOBREX) 0.3 % ophthalmic solution 1 drop every 4 hours 0 Active Turmeric Curcumin 500 MG CAPS (20 sources) take 1 capsule by mouth once daily in the morning Turmeric Curcumin 500 MG CAPS Take 1 capsule by mouth every morning 0 Active turmeric-turmeric root extract 450-50 mg cap (2 sources) take 1 capsule by mouth once daily turmeric-turmeric root extract 450-50 mg cap Take 1 capsule by mouth daily . 0 Active Vision Formula/Lutein (6 sources) Start: 06-11-2020 take 1 tablet by mouth once daily Vision Formula/Lutein Vision Formula/Lutein, 1 tab, Oral, Daily Start Date: 06/11/20 Status: Ordered Vitamin B12 1000 mcg Tab (11 sources) Start: 01-21-2022 take 1 tablet by mouth once daily Vitamin B12 1000 mcg Tab 1,000 mcg = 1 tab(s), Oral, Daily, Refills(s) 0, Prophylaxis Start Date: 01/21/22 Status: Ordered Start: 01-21-2022 Vitamin B12 10 00 mcg Tab Refills(s) 0 Start Date: 01/21/22 Status: Ordered Vitamin D3 (6 sources) Start: 02-02-2018 Vitamin D3 2,000 International_Unit, Oral, Daily, Refills(s) 0, Prophylaxis Start Date: 02/02/18 Status: Ordered vitamin e d-alpha 400 unt oral capsule (20 sources) take 1 capsule by mouth once daily vitamin E 400 UNIT capsule Take 400 Units by mouth nightly 0 Active warfarin sodium 4 mg oral tablet (13 sources) Vitamin K Antagonist Start: 10-24-2018 take 1 tablet by mouth once daily warfarin (COUMADIN) 4 MG tablet Take 1 tablet by mouth daily . 0 03/05/2019 Active Zinc (20 sources) take 1 tablet by mouth once daily in the morning Zinc 50 MG TABS Take 1 tablet by mouth every morning 0 Active zinc gluconate 50 mg oral tablet (1 source) take 1 tablet by mouth once daily in the morning Zinc 50 MG TABS Take 1 tablet by mouth every morning 0 Active Completed/Discontinued Medications Medication Drug Class(es) Dates Sig (Normalized) Sig (Original) 0.5 ML tirzepatide 10 MG/ML Auto-Injector [Mounjaro] (1 source) Start: 07-26-2023 Mounjaro 5 mg/0.5 mL subcutaneous solution 2 mL, 0 Refill(s), INJECT 5MG SUBCUTANEOUSLY EVERY WEEK, Refills(s) 0 Start Date: 07/26/23 Status: Ordered acetaminophen 325 mg / oxyCODONE hydrochloride 5 mg oral tablet (1 source) Opioid Agonist Start: 10-06-2022 Percocet 5 mg-325 mg oral tablet See Instructions, 40 tab(s), Refill(s) 0, 1-2 tab(s) Oral q4hr, [facility], 160, cm, 09/23/22 12:20:00 EST, Height/Length Dosing, 113.4, kg, 09/23/22 12:20:00 EST, Weight Dosing Start Date: 10/06/22 Status: Ordered albuterol 0.83 mg/ml inhalant solution (1 source) beta2-Adrenergic Agonist Start: 04-19-2019 End: 04-19-2019 albuterol (PROVENTIL) nebulizer solution 2.5 mg 2 ml fentaNYL 0.05 mg/ml injection (1 source) Opioid Agonist Start: 11-05-2022 End: 04-07-2023 fentaNYL (SUBLIMAZE) injection 100 mcg Start: 11-05-2022 End: 11-05-2022 fentaNYL (SUBLIMAZE) injecti on 100 mcg gadoteridol (PROHANCE) injection 20 mL (1 source) Start: 03-20-2019 End: 03-20-2019 gadoteridol (PROHANCE) injection 20 mL insulin detemir (20 sources) Insulin Analog End: 09-23-2020 Insulin Detemir (LEVEMIR FLEXPEN SC) Inject 44 Units into the skin nightly 0 09/23/2020 Discontinued inject 42 [IU] by bach bcutaneous injection once daily insulin detemir U-100 (LEVEMIR) 100 unit/mL injection Inject 42 Units under the skin nightly . 0 Active Insulin Detemir (LEVEMIR FLEXPEN SC) Inject 44 Units into the skin nightly 0 Active Insulin Detemir (LEVEMIR FLEXPEN SC) Inject 42 Units into the skin nightly 0 Active Insulin Lispro (1 source) Insulin Analog Start: 10-07-2022 End: 10-07-2022 Insulin Lispro Sliding Scale 0-10 units, Injection-Insulin, SubCutaneous, Start date 10/07/22 7:30:00 EST Start Date: 10/07/22 Stop Date: 10/07/22 Status: Completed Iopamidol (1 source) Radiographic Contrast Agent Start: 03-20-2019 End: 03-20-2019 iopamidol (ISOVUE-370) 76 % injection 100 mL iopamidol (ISOVUE-370) 76 % injection 100 mL (1 source) Start: 09-03-2020 End: 09-03-2020 iopamidol (ISOVUE-370) 76 % injection 100 mL iopamidol (ISOVUE-370) 76 % injection 125 mL (1 source) Start: 03-25-2020 End: 03-25-2020 iopamidol (ISOVUE-370) 76 % injection 125 mL levothyroxine sodium 0.075 mg oral tablet (20 sources) l-Thyroxine Start: 05-05-2023 take 1 tablet by mouth once daily levothyroxine 75 mcg (0.075 mg) Tab 75 microgram = 1 tab(s), Oral, Daily, # 90 tab(s), Refills(s) 1, Pharmacy: [facility], 160, cm, 04/28/23 14:54:00 EDT, Height/Length Dosing, 120.7, kg, 04/19/23 14:26:00 EDT, Weight Dosing Start Date: 05/05/23 Status: Ordered Start: 01-25-2022 take 1 tablet by drake once daily levothyroxine 75 mcg (0.075 mg) Tab 75 microgram = 1 tab(s), Oral, Daily, # 90 tab(s), Refills(s) 3, Pharmacy: [facility] ([facility]), 160, cm, 01/21/22 13:23:00 EDT, Height/Length Dosing, 116.6, kg, 01/21/22 13:23:00 EDT, Weight Dosing Start Date: 01/25/22 Status: Ordered Start: 04-16-2021 take 1 tablet by [facility] once daily levothyroxine 75 mcg (0.075 mg) Tab 75 microgram = 1 tab(s), Oral, Daily, # 90 tab(s), Refills(s) 3, Pharmacy: [facility], 160, cm, 04/10/21 13:26:00 EDT, Height/Length Dosing, 105.4, kg, 04/10/21 13:26:00 EDT, Weight Dosing Start Date: 04/16/21 Status: Ordered Start: 01-22-2019 take 1 tablet by [facility] once daily levothyroxine 75 mcg (0.075 mg) Tab 75 microgram = 1 tab(s), Oral, Daily, # 90 tab(s), Refills(s) 3, Pharmacy: [facility], 160, cm, 04/10/21 13:26:00 EDT, Height/Length Dosing, 105.4, kg, 04/10/21 13:26:00 EDT, Weight Dosing Start Date: 04/16/21 Status: Ordered lisinopril 10 mg oral tablet (1 source) Angiotensin Converting Enzyme Inhibitor Start: 10-07-2022 End: 10-07-2022 lisinopril 10 mg Tab 10 mg = 1 tab(s), Tab, Oral, Start date 10/07/22 9:00:00 EST, 10/06/22 10:56:00 EST Start Date: 10/07/22 Stop Date: 10/07/22 Status: Completed Start: 10-07-2022 End: 10-07-2022 lisinopril 10 mg Tab 10 mg = 1 tab(s), Tab, Oral, Start date 10/07/22 9:00:00 EST, 10/06/22 10:56:00 EST Start Date: 10/07/22 Stop Date: 10/07/22 Status: Completed Magnesium glycinate (2 sources) Start: 04-14-2023 regadenoson (LEXISCAN) injection 0.4 mg (1 source) Start: 03-02-2022 End: 03-02-2022 regadenoson (LEXISCAN) injection 0.4 mg regular insulin, human 100 unt/ml injectable solution (1 source) Insulin Start: 09-23-2020 End: 09-23-2020 insulin regular (HUMULIN R;NOVOLIN R) injection 8 Units Start: 09-23-2020 End: 09-23-2020 insulin regular (HUMULIN R;N OVOLIN R) injection 8 Units technetium sestamibi (CARDIOLITE) injection 10 millicurie (1 source) Start: 03-02-2022 End: 03-02-2022 technetium sestamibi (CARDIOLITE) injection 10 millicurie technetium sestamibi (CARDIOLITE) injection 30 millicurie (1 source) Start: 03-02-2022 End: 03-02-2022 technetium sestamibi (CARDIOLITE) injection 30 millicurie Problems Active Problems Problem Classification Problem Date Documented Da te Episodic/Chronic Abdominal pain (1 source) Pain in pelvis; Translations: [Pelvic pain] Episodic Administrative/social admission (1 source) Counseling procedure with explicit context; Translations: [Dietary counseling and surveillance] Onset: 02-03-2023 Episodic Aortic; peripheral; and visceral artery aneurysms (5 sources) Aneurysm of ascending aorta; Translations: [Thoracic aortic aneurysm, without rupture] Onset: 10-27-2022 Chronic Cardiac dysrhythmias (20 sources) Atrial fibrillation; Translations: [Unspecified atrial fibrillation] Onset: 07-11-2018 Resolved: 04-25-2019 07-11-2018 Chronic Complications of surgical procedures or medical care (20 sources) 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 Conditions associated with dizziness or vertigo (2 sources) Dizziness; Translations: [Dizziness] Episodic Congestive heart failure; nonhypertensive (20 sources) Diastolic dysfunction 09-26-2020 Chronic Coronary atherosclerosis and other heart disease (2 sources) Angina, class III; Translations: [Angina, class III (HCC)] Chronic Deficiency and other anemia (1 source) Anemia due to chronic blood loss; Translations: [Iron deficiency anemia secondary to blood loss (chronic)] Onset: 12-16-2021 Chronic Deficiency and other anemia (3 sources) Anemia due to blood loss 10-02-2020 Chronic Deficiency and other anemia (1 source) Anemia due to unknown mechanism ; Translations: [Anemia of unknown etiology] Episodic Diabetes mellitus with complications (20 sources) Polyneuropathy due to type 2 diabetes mellitus; Translations: [Type 2 diabetes mellitus with diabetic polyneuropathy] Onset: 12-16-2021 Chronic Comment on above: Linked per outpatien t CDI policy. Diabetes mellitus without complication (20 sources) Type 2 diabetes mellitus; Translations: [Type 2 diabetes mellitus without complications] Onset: 07-15-2022 10-02-2020 Chronic Diabetes mellitus without complication (5 sources) Hyperglycemia; Translations: [Hyperglycemia, unspecified] Episodic Disorders of lipid metabolism (20 sources) Mixed hyperlipidemia; Translations: [Hyperlipidemia] Onset: 12-17-2021 09-26-2020 Chronic E Codes: Fall (2 sources) Fall; Translations: [Unspecified fall, initial encounter] Onset: 11-05-2022 Episodic Essential hypertension (20 sources) Hypertensive disorder; Translations: [Essential (primary) hypertension] Onset: 12-16-2021 Chronic Gastritis and duodenitis (20 sources) Duodenitis 10-02-2020 Episodic Genitourinary symptoms and ill-defined conditions (20 sources) Urge incontinence of urine; Translations: [Female stress incontinence] 04-29-2020 Chronic Genitourinary symptoms and ill-defined conditions (20 sources) Nocturia; Translations: [Microscopic hematuria] 06-06-2019 Episodic Inflammation; infection of eye (except that caused by tuberculosis or sexually transmitteddisease) (20 sources) Uveitis Episodic Miscellaneous mental health disorders (20 sources) Insomnia; Translations: [Other insomnia not due to a substance or known physiological condition] Onset: 12-17-2021 Chronic Mood disorders (20 sources) Recurrent major depressive episodes, moderate ; Translations: [Moderate recurrent major depression] Onset: 01-20-2022 05-02-2020 Chronic Nausea and vomiting (5 sources) Nausea; Translations: [Nausea] Onset: 12-17-2021 Episodic Nutritional deficiencies (20 sources) Vitamin D deficiency; Translations: [Vitamin D deficiency, unspecified] Onset: 02-23-2022 Chronic Osteoarthritis (20 sources) Localized, primary osteoarthritis of the shoulder region; Translations: [Primary osteoarthritis, left shoulder] Onset: 06-14-2022 03-23-2019 Chronic Other aftercare (2 sources) Long-term current use of insulin; Translations: [pricing strategist (current) use of insulin] Onset: 12-16-2021 Episodic Other and ill-defined heart disease (20 sources) Left ventricular hypertrophy; Translations: [LVH (left ventricular hypertrophy)] Chronic Other bone disease and musculoskeletal deformities (2 sources) Disorder of bone; Translations: [Other specified disorders of bone density and structure, multiple sites] Onset: 01-20-2022 Episodic Other bone disease and musculoskeletal deformities (18 sources) Osteopenia 01-20-2022 Episodic Other circulatory disease (17 sources) H/O: atrial fibrillation 09-23-2022 Episodic Other connective tissue disease (20 sources) Fibromyalgia; Translations: [Fibromyalgia] Onset: 01-03-2023 05-02-2020 Episodic Other connective tissue disease (7 sources) Foot pain 11-13-2020 Episodic Other connective tissue disease (13 sources) Muscle spasm of cervical muscle of neck 12-12-2019 Episodic Other connective tissue disease (4 sources) Other muscle spasm; Translations: [OTHER MUSCLE SPASM] Onset: 08-24-2022 Episodic Other connective tissue disease (17 sources) Triggering of digit 06-18-2022 Episodic Other connective tissue disease (1 source) Pain in left foot; Translations: [Pain in left foot] Onset: 11-08-2022 Episodic Other endocrine disorders (13 sources) Nocturnal hypoglycemia due to diabetes mellitus 03-23-2019 Chronic Other gastrointestinal disorders (20 sources) Slow transit constipation; Translations: [Slow transit constipation] Onset: 12-17-2021 Episodic Other inflammatory condition of skin (1 source) Pruritus of vagina; Translations: [Vaginal itching] Episodic Other inflammatory condition of skin (20 sources) 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 Episodic Other injuries and conditions due to external causes (1 source) Injury of left shoulder; Translations: [Unspecified injury of left shoulder and upper arm, initial encounter] Episodic Other injuries and conditions due to external causes (1 source) Unspecified injury of left shoulder and upper arm, initial encounter; Translations: [Unspecified injury of left shoulder and upper arm, initial encounter] Onset: 11-05-2022 Episodic Other liver diseases (20 sources) Steatosis of liver 04-29-2020 Chronic Other lower respiratory disease (1 source) Pleuritic pain; Translations: [Pleurodynia] Onset: 04-28-2023 Episodic Other lower respiratory disease (5 sources) Rib pain 04-28-2023 Episodic Other nervous system disorders (1 source) Other chronic pain; Translations: [OTHER CHRONIC PAIN] Onset: 11-05-2021 Chronic Other nervous system disorders (10 sources) Ataxic gait; Translations: [Ataxic gait] Onset: 12-17-2021 Episodic Other non-traumatic joint disorders (20 sources) Arthritis of knee 03-23-2019 Chronic Other non-traumatic joint disorders (4 sources) Ankle pain 10-16-2020 Episodic Other non-traumatic joint disorders (5 sources) Pain in left shoulder; Translations: [PAIN IN LEFT SHOULDER] Onset: 06-10-2022 Episodic Other non-traumatic joint disorders (1 source) Pain of left shoulder joint; Translations: [Pain in left shoulder] Onset: 11-08-2022 Episodic Other non-traumatic joint disorders (3 sources) Shoulder pain 11-08-2022 Episodic Other nutritional; endocrine; and metabolic disorders (20 sources) Body mass index 40+ - severely obese; Translations: [Body mass index (BMI) 45.0-49.9, adult] Onset: 12-17-2021 Chronic Other nutritional; endocrine; and metabolic disorders (20 sources) Morbid obesity; Translations: [Morbid (severe) obesity due to excess calories] Onset: 12-17-2021 Chronic Other nutritional; endocrine; and metabolic disorders (9 sources) Severe obesity 02-03-2023 Chronic Other skin disorders (20 sources) Inflamed seborrheic keratosis; Translations: [Inflamed seborrheic keratosis] Onset: 02-11-2023 07-15-2020 Episodic Pancreatic disorders (not diabetes) (20 sources) Chronic pancreatitis 09-26-2020 Chronic Pancreatic disorders (not diabetes) (20 sources) Pancreatic insufficiency 07-14-2020 Episodic Residual codes; unclassified (13 sources) Insomnia disorder related to known organic factor 12-17-2021 Chronic Residual codes; unclassified (18 sources) Obstructive sleep apnea syndrome; Translations: [Obstructive sleep apnea (adult) (pediatric)] Onset: 04-27-2023 05-25-2022 Chronic Residual codes; unclassified (20 sources) Bilateral lower limb edema 07-03-2021 Episodic Residual codes; unclassified (10 sources) Abnormal sensation 09-23-2022 Episodic Residual codes; unclassified (5 sources) Localized edema; Translations: [Localized edema] Onset: 01-03-2023 Episodic Residual codes; unclassified (1 source) Patient encounter status; Translations: [Other specified health status] Onset: 04-19-2023 Episodic Screening and history of mental health and substance abuse codes (9 sources) Tobacco use and exposure - finding 06-18-2022 Chronic Spondylosis; intervertebral disc disorders; other back problems (17 sources) Spondylosis without myelopathy or radiculopathy, lumbar region; Translations: [Other intervertebral disc degeneration, lumbar region] Onset: 10-15-2021 Chronic Spondylosis; intervertebral disc disorders; other back problems (20 sources) Low back pain; Translations: [Sacrococcygeal disorders, not elsewhere classified] Onset: 11-05-2021 04-30-2020 Episodic Sprains and strains (1 source) Injury of muscle and tendon at thorax level; Translations: [Strain of muscle and tendon of front wall of thorax, initial encounter] Onset: 03-28-2023 Episodic Thyroid disorders (20 sources) Hypothyroidism; Translations: [Other specified hypothyroidism] Onset: 12-17-2021 Chronic Unclassified (20 sources) Patient encounter status Unclassified (20 sources) Drug therapy finding 05-01-2020 Unclassified (20 sources) Long-term current use of insulin 12-06-2019 Unclassified (4 sources) LOW BACK PAIN, UNSPECIFIED; Translations: [LOW BACK PAIN, UNSPECIFIED] Onset: 11-05-2021 Unclassified (1 source) CONTACT W/AND (SUSP) EXPOS COVID-19; Translations: [CONTACT W/AND (SUSP) EXPOS COVID-19] Onset: 12-15-2022 Unclassified (4 sources) Strain of intercostal muscle 03-28-2023 Past or Other Problems Problem Classification Problem Date Documented Da te Episodic/Chronic Malaise and fatigue (4 sources) Fatigue; Translations: [Other fatigue] Onset: 02-23-2022 Episodic Other aftercare (20 sources) Long-term current use of anticoagulant; Translations: [pricing strategist (current) use of anticoagulants] Onset: 07-27-2018 Resolved: 04-25-2019 07-27-2018 Episodic Other aftercare (1 source) care home (current) use of insulin; Translations: [CUSTODIAL CURRENT USE OF INSULIN] Onset: 05-20-2022 Episodic Other connective tissue disease (1 source) Muscle wasting and atrophy, not elsewhere classified, unspecified site; Translations: [MUSCLE WASTING ATROPHY NEC UNS SITE] Onset: 02-09-2022 Episodic Other injuries and conditions due to external causes (20 sources) History of fall Resolved: 03-23-2019 03-23-2019 Episodic Other lower respiratory disease (20 sources) Dyspnea; Translations: [Shortness of breath] Onset: 07-11-2018 07-11-2018 Episodic Other lower respiratory disease (2 sources) Snoring; Translations: [Snoring] Onset: 04-26-2022 Episodic Other lower respiratory disease (3 sources) Shortness of breath; Translations: [Shortness of breath] Onset: 07-11-2018 Episodic Other screening for suspected conditions (not mental disorders or infectious disease) (6 sources) Blood chemistry abnormal; Translations: [Other specified abnormal findings of blood chemistry] Onset: 01-20-2022 Episodic Residual codes; unclassified (2 sources) Insomnia, unspecified; Translations: [Insomnia, unspecified] Onset: 04-26-2022 Episodic Unclassified (1 source) LOW BACK PAIN, UNSPECIFIED; Translations: [LOW BACK PAIN, UNSPECIFIED] Onset: 11-03-2021 Results Test Name Value Interpretation Reference Range Facil trey Family Medicine Office/Clini c Noteon 07-29-2023 Family Medicine Office/Clinic Note Chief Complaint Patient here with for medication refills. Needs refill on Mounjaro sent to [facility]. Yusuf Sanches would like her to see a neuro surgeon - she would like your opinion on this. History of Present Illness Sylwia is accompanied by her . She is tolerating Mounjaro well and has been able to up titrate the dose with minimal GI side effect. Her blood sugar was 112 this morning, 83 yesterday, and 92 the day before. She had a low blood sugar last week around 3 or 4 in the morning, but she did not eat anything before bed. She is on 25 units of Lantus in the morning and 23 units at night. She continues with pain management Dr Vickers and is scheduled for another ablation on 08/09/2023. If that does not work, they will send her to a neurosurgeon. The nurse practitioner questioned whether the neurosurgeon would be able to do anything with her osteoporosis. They want to put a spacer in between the vertebra and if the osteoporosis is too bad, that could break her vertebra. She had an MRI of her low back within the last year. The pain radiates down her right leg now but has had LLE symptoms also in the past. She had an ablation on her left side prior. She has weakness and pain. She denies any numbness. She can stand for 20 minutes and then she has to sit down. Housework is limited to bursts of activity and her assists her in most activities. Review of Systems PHQ Score Initial Depression Screen Score: 0 SCORE As above HPI, otherwise ROS negative Physical Exam Vitals & Measurements T: 36.8 ?C(Temporal Artery) HR: 76(Peripheral) RR: 18 BP: 138/78 SpO2: 95% HT: 64 in HT: 162.6 cm WT: 114.8 kg WT: 252.56 lb BMI: 43.42 The patient is obese, no acute distress. Neck: No JVD, bruits, or thyromegaly. Auscultation of the heart with regular rate and rhythm, no murmur. Evaluation of the extremities with obesity, no heriberto edema of the ankles and feet. Patient with a shortened gait, no focal antalgia and today is not using an ambulatory aid. Assessment/Plan 1. Type 2 diabetes mellitus with morbid obesity (E11.69: Type 2 diabetes mellitus with other specified complication) She is very pleased as she has been able to progress Frank and is starting to decrease her overall dose of insulin, she has had some nocturnal hypoglycemia thus we will combine her split doses of Lantus which is a basal insulin, 47 units nightly but can decrease from there to keep FBS between 80-120. Mounjaro is uptitrated to 10 mg weekly and we note she has had some side effects on other oral diabetes meds thus the necessity of keeping this GLP-1 medication. Ordered: A1c POC 26014 2. Benign essential hypertension (I10: Essential (primary) hypertension) Blood pressure is nicely controlled, she also follows with cardiology on a routine basis. Continue ramipril and carvedilol current doses. Ordered: A1c POC 58003 3. Lumbar degenerative disc disease (M51.36: Other intervertebral disc degeneration, lumbar region) She is pleased with her current pain management plan and providers. Her goal is increased function, she has bilateral symptoms and indeed there may be a place for surgical consultation. I have given her the names of the locally practicing and new to the area neurosurgery/orthospin e providers. 4. BMI 40.0-44.9, adult (Z68.41: Body mass index [BMI] 40.0-44.9, adult) Urged healthy diet with decreased calories and increased vegetables. Encouraged increased activity and a goal of 150min per week of exercise. 5. Class 3 severe obesity due to excess calories with serious comorbidity in adult (E66.01: Morbid (severe) obesity due to excess calories) Increases risk to ASCVD. She has thankfully experienced some weight loss on Mounjaro which is also notable due to her limitation of activity. Orders: insulin glargine, 47 unit(s), SubCutaneous, Once a day (at bedtime), # 45 mL, Refills(s) 3, Pharmacy: [facility], 160, cm, 04/28/23 14:54:00 EDT, Height/Length Dosing, 120.7, kg, 04/19/23 14:26:00 EDT, Weight Dosing nystatin topical, 1 seth, Topical, BID, 30 gm, Refill(s) 1, [facility], 162.6, cm, 07/29/23 9:26:00 EST, Height/Length Dosing, 114.8, kg, 07/29/23 9:26:00 EST, Weight Dosing tirzepatide, 7.5 mg, SubCutaneous, qWeek, # 4 EA, Refills(s) 0, Pharmacy: [facility], 160, cm, 04/28/23 14:54:00 EDT, Height/Length Dosing, 120.7, kg, 04/19/23 14:26:00 EDT, Weight Dosing tirzepatide, 10 mg, SubCutaneous, qWeek, # 4 EA, Refills(s) 0, Pharmacy: [facility], 162.6, cm, 07/29/23 9:26:00 EST, Height/Length Dosing, 114.8, kg, 07/29/23 9:26:00 EST, Weight Dosing Portions of this record may have been created with voice recognition artificial intelligence software, specifically Scandid, Lala and or [employer]. Substitutions may have occurred due to the inherent limitations of voice recognition and artificial intelligence software. Follow-up With When Contact Inform (more content not included)... [facility] Comment on above: Result Comment: Elec tronically Signed By: FLYNN WELDON FAAFP, Shyla Genao\.br\Date and Time Signed: 07/29/23 13:33 EST Patient Educationon 07-29-20 Patient Education Orthopedics Back Exercises These exercises help to make your trunk and back strong. They also help to keep the lower back flexible. Doing these exercises can help to prevent or lessen pain in your lower back. ? If you have back pain, try to do these exercises 2?3 times each day or as told by your doctor. ? As you get better, do the exercises once each day. Repeat the exercises more often as told by your doctor. ? To stop back pain from coming back, do the exercises once each day, or as told by your doctor. Do exercises exactly as told by your doctor. Stop right away if you feel sudden pain or your pain gets worse. Exercises Single knee to chest Do these steps 3?5 times in a row for each le. Lie on your back on a firm bed or the floor with your legs stretched out. 2. Bring one knee to your chest. 3. Grab your knee or thigh with both hands and hold it in place. 4. Pull on your knee until you feel a gentle stretch in your lower back or butt. 5. Keep doing the stretch for 10?30 seconds. 6. Slowly let go of your leg and straighten it. Pelvic tilt Do these steps 5?10 times in a row: 1. Lie on your back on a firm bed or the floor with your legs stretched out. 2. Bend your knees so they point up to the ceiling. Your feet should be flat on the floor. 3. Tighten your lower belly (abdomen) muscles to press your lower back against the floor. This will make your tailbone point up to the ceiling instead of pointing down to your feet or the floor. 4. Stay in this position for 5?10 seconds while you gently tighten your muscles and breathe evenly. Cat?cow Do these steps until your lower back bends more easily: 1. Get on your hands and knees on a firm bed or the floor. Keep your hands under your shoulders, and keep your knees under your hips. You may put padding under your knees. 2. Let your head hang down toward your chest. Tighten (contract) the muscles in your belly. Point your tailbone toward the floor so your lower back becomes rounded like the back of a cat. 3. Stay in this position for 5 seconds. 4. Slowly lift your head. Let the muscles of your belly relax. Point your tailbone up toward the ceiling so your back forms a sagging arch like the back of a cow. 5. Stay in this position for 5 seconds. Press-ups Do these steps 5?10 times in a row: 1. Lie on your belly (face-down) on a firm bed or the floor. 2. Place your hands near your head, about shoulder-width apart. 3. While you keep your back relaxed and keep your hips on the floor, slowly straighten your arms to raise the top half of your body and lift your shoulders. Do not use your back muscles. You may change where you place your hands to make yourself more comfortable. 4. Stay in this position for 5 seconds. Keep your back relaxed. 5. Slowly return to lying flat on the floor. Bridges Do these steps 10 times in a row: 1. Lie on your back on a firm bed or the floor. 2. Bend your knees so they point up to the ceiling. Your feet should be flat on the floor. Your arms should be flat at your sides, next to your body. 3. Tighten your butt muscles and lift your butt off the floor until your waist is almost as high as your knees. If you do not feel the muscles working in your butt and the back of your thighs, slide your feet 1?2 inches (2.5?5 cm) farther away from your butt. 4. Stay in this position for 3?5 seconds. 5. Slowly lower your butt to the floor, and let your butt muscles relax. If this exercise is too easy, try doing it with your arms crossed over your chest. Belly crunches Do these steps 5?10 times in a row: 1. Lie on your back on a firm bed or the floor with your legs stretched out. 2. Bend your knees so they point up to the ceiling. Your feet should be flat on the floor. 3. Cross your arms over your chest. 4. Tip your chin a little bit toward your chest, but do not bend your neck. 5. Tighten your belly muscles and slowly raise your chest just enough to lift your shoulder blades a tiny bit off the floor. Avoid raising your body higher than that because it can put too much stress on your lower back. 6. Slowly lower your chest and your head to the floor. Back lifts Do these steps 5?10 times in a row: 1. Lie on your belly (face-down) with your arms at your sides, and rest your forehead on the floor. 2. Tighten the muscles in your legs and your butt. 3. Slowly lift your chest off the floor while you keep your hips on the floor. Keep the back of your head in line with the curve in your back. Look at the floor while you do this. 4. Stay in this position for 3?5 seconds. 5. Slowly lower your chest and your face to the floor. Contact a doctor if: ? Your back pain gets a lot worse when you do an exercise. ? Your back pain does not get better within 2 hours after you exercise. If you have any of these problems, stop doing the exercise (more content not included)... [facility] Family Medicine Office/Clini c Noteon 07-28-2023 Family Medicine Office/Clinic Note Chief Complaint Medicare Wellness Visit Review of Systems PHQ Score Initial Depression Screen Score: 1 SCORE Physical Exam Vitals & Measurements HR: 73(Peripheral) BP: 128/70 SpO2: 96% HT: 162.56 cm HT: 64 in WT: 116.9 kg WT: 257.18 lb BMI: 44.24 Assessment/Plan Attestation: I was in the office and available for consultation and to provide direct supervision at the time of this visit. I have provided supervision of the care team and have reviewed this chart and office note and agree with the plan of care. 1. Annual visit for general adult medical examination without abnormal findings (Z00.00: Encounter for general adult medical examination without abnormal findings) The patient was given a customized and personalized print out of all the current AHRQ USPSTF?s recommendations for preventative services and all current CDC recommended immunizations, relevant risk recommendations and the following patient brochures were given. Reviewed Medicare Prevention Services checklist. CDC-Falls Prevention and home safety screening reviewed. Patient had one fall in last 12 months with injury, voices worry about falling. Exhibits problems with sitting, standing or ambulation. Patient aware with keeping walk way area free of clutter to prevent tripping and/or falling. [place] Advance Directives reviewed. Documents to be completed, encouraged to bring in for scanning into chart when complete. Patient denies any problems with ADL?s and Instrumental ADL?s. Cognitive screening completed with memory and clock face drawing. No deficits noted. Immunization record reviewed, discussed Shingrix vaccine with educational handout and availability. COVID vaccines have been administered, with 3 Boosters received. Allergies and medications reviewed and up to date. No concerns with taking medication as prescribed. Reviewed OTC medications, medication list up to date. Blood tests were reviewed: Discussed what tests need to be updated. Labs were up to date, will have completed prior to next PCP visit. Labs to be completed with [facility]. No concerns with bowel/ bladder. Colonoscopy last completed 06/11/20 repeat if problems occur, referral placed by PCP. Reviewed pain symptoms : chronic back, legs and neck, rates pain as a 8 out of 10, no pain medications taken. Reviewed all outside providers that patient follows. Last visit summary notes available in chart and/or have been requested. Patient declines any signs or symptoms of depression at this time. 8 minutes spent with screening and documentation. PHQ2 screening score 7. Patient never drinks alcohol, denies concerns. 8 minutes spent with screening and documentation. Audit score 0. Follow up scheduled with PCP, 07/29/23 AWV has been scheduled, 07/26/24 @1pm Medicare provides yearly screening for alcohol and depression concerns. This is completed during our Medicare wellness visit for those who do not have a current diagnosis of depression or concerns with alcohol use. I spent a total of 17 minutes on this date of service which included preparing to see the patient, face to face patient care, completing clinical documentation, obtaining and/or reviewing separately obtained history, counseling and educating the patient with handouts. Explanations were provided with reviewing questionnaires. AUDIT risk assessment screening completed, risk score (0) with patient denying concerns with use. Completed PHQ-9 risk assessment for depression with risk score (7), negative findings. Patient has been reminded to notify the provider if there would be a change or concerns with symptoms with fear, unable to sleep, worrying too much or feeling down and/or sad with lost of interest with daily activities. Will continue to monitor with screening yearly during Medicare wellness visits. 2. Long-term insulin use (Z79.4: pricing strategist (current) use of insulin) Patient voices understanding with proper use of insulin dosage. Educational handout reviewed with proper storage and/or care needed for insulin. Follows up with PCP with needed labs, DM supplies and dosage adjustments as needed. Reviewed available sites that can be used to administer Insulin, patient voices understanding. 3. Moderate recurrent major depression (F33.1: Major depressive disorder, recurrent, moderate) PHQ-9 completed with score 7. Denies concerns, voices no suicidal ideations. Taking medication daily, patient voices effectiveness with this medication. Educational handouts reviewed with signs and symptoms to monitor for and report to PCP. Medications managed with office visits, OPIOD risk with OARRS completed with PCP. 4. Paroxysmal A-fib (I48.0: Paroxysmal atrial fibrillation) Follows Police Booking Officer, Dr. Floyd. Denies SOB, chest pain or irregular heart rhythm. Manages medications with office visits. Cardiac-/DASH nutritional education handout reviewed with patient and provided. Tries following healthy dietary intake. Last visit office notes are available in medical chart for PCP to review. (more content not included)... [facility] Comment on above: Result Comment: Elec tronically Signed By: Blanka Contreras PA-C\.br\Date and Time Signed: 07/28/23 21:20 EST\.br\Electronically Co-Signed By: Mariangel Flor\.br\Date and Time Co-Signed: 07/26/23 15:20 EST [place] 07-27-2023 Screens [id number] 20 [id number] 0TIFF Shani Dodd [facility] Ambulatory Visit Summaryon 1 09-26-2022 Ambulatory Visit Summary NAHED PETERSON :1945 Visit Date:07/26/2023 Ambulatory Visit Instructions Your Diagnosis Annual visit for general adult medical examination without abnormal findings Long-term insulin use Moderate recurrent major depression Paroxysmal A-fib Type 2 diabetes mellitus with hyperlipidemia, Type 2 diabetes mellitus with morbid obesity Type 2 diabetes mellitus with polyneuropathy Osteopenia of multiple sites 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 Chronic insomnia BMI 45.0-49.9, adult Class 3 severe obesity due to excess calories with serious comorbidity in adult Your Care Team Attending Physician - Shyla PRUETT MD, FAAFP Primary Care Physician - Shyla PRUETT MD, FAAFP This Is Your Medications List Misc Prescription (glucometer test strip) Misc Prescription (pen needles) acetaminophen-hydrocod one (acetaminophen-hydroco done 325 mg-5 mg oral tablet) baclofen (baclofen 10 mg Tab) carvedilol (carvedilol 25 mg Tab) cranberry diltiazem (Cardizem 60 mg Tab) docusate (Colace 100 mg Cap) duloxetine (duloxetine 60 mg oral delayed release capsule) fluconazole (Diflucan 150 mg Tab) furosemide (furosemide 20 mg Tab) insulin glargine (Lantus Solostar Pen 100 units/mL subcutaneous solution) levothyroxine (levothyroxine 75 mcg (0.075 mg) Tab) lidocaine topical (Lidoderm 5% Patch) magnesium glycinate nystatin topical (nystatin Top 100,000 units/g Crm 15 gram) ramipril (ramipril 5 mg Cap) rivaroxaban (Xarelto 20 mg oral tablet) tirzepatide (Mounjaro 5 mg/0.5 mL subcutaneous solution) tirzepatide (tirzepatide 7.5 mg/0.5 mL subcutaneous solution) Procedures Performed Arthroscopy of shoulder with biceps tenodesis (10/07/2022), Injection (01/19/2022), Ablation (11/03/2021), Esophagogastroduodenos copy and polypectomy of duodenum (07/17/2021), Cholecystectomy (03/20/2021), Colonoscopy (06/11/2020), appendectomy, bilateral carpal tunnel elease, Bilateral cataract, Cardiac catheterization, EGD (esophagogastroduodeno scopy) gastric outlet reduction, hysterectomy, L 4-5t toes --- bones and toenails removed, L and R rotator cuff, R hand tendons, R ulna n transposition, right ankle surgery, shoulder surgery, tubes tied. Discharge Vitals Heart Rate (Peripheral) 73 Blood Pressure 128/70 Height 162.56 cm Height 64 in Weight 116.9 kg Weight 257.18 lb BMI 44.24 What to do next Scheduled Follow-Up Appointments Tuesday 9:20 AM EST With: FLYNN WELDON FAAFP, Shyla Genao Where: [facility] [address] [place] [phone] \.br\ Medications\.br \ What How Much When Why Instructions\.b r\ Unchanged acetaminophen-h ydrocodone (acetaminophen- hydrocodone 325 mg-5 mg oral tablet) 1 Tablets By Mouth 3 times a day as needed for Pain 4-7\.br\ Unchanged baclofen (baclofen 10 mg Tab) 1 Tablets By Mouth 3 times a day as needed for Muscle pain\.br\ Unchanged carvedilol (carvedilol 25 mg Tab) 0.5 Tablets By Mouth 2 times a day\.br\ Unchanged cranberry 500 Unknown, Oral, 0 Refill(s) \.br\ Unchanged diltiazem (Cardizem 60 mg Tab) 1 Tablets By Mouth 3 times a day\.br\ Unchanged docusate (Colace 100 mg Cap) 1 Capsules By Mouth 2 times a day as needed for for constipation\.b r\ Unchanged duloxetine (duloxetine 60 mg oral delayed release capsule) 1 Capsules By Mouth Every day\.br\ Unchanged fluconazole (Diflucan 150 mg Tab) 1 Tablets By Mouth Once repeat after 3 days x1 if not improving \.br\ Unchanged furosemide (furosemide 20 mg Tab) 1 Tablets By Mouth Every day\.br\ Unchanged insulin glargine (Lantus Solostar Pen 100 units/ mL subcutaneous solution) 25 Units Subcutaneous 2 times a day\.br\ Unchanged levothyroxine (levothyroxine 75 mcg (0.075 mg) Tab) 1 Tablets By Mouth Every day\.br\ Unchanged lidocaine topical (Lidoderm 5% Patch) 1 Patches Topical Every day apply 12 hours on and 12 hours off daily \.br\ Unchanged magnesium glycinate 100 Unknown, Oral, 0 Refill(s) \.br\ Unchanged Misc Prescription (glucometer test strip) See instructions Long-term insulin use Type 2 diabetes mellitus with diabetic autonomic (poly)neuropath y test QID \.br\ Unchanged Misc Prescription (pen needles) See instructions Type 2 diabetes mellitus with diabetic autonomic (poly)neuropath y Long-term insulin use 31G, 3/ 16 , 5mm. use daily with insulin \.br\ Unchanged nystatin topical (nystatin Top 100,000 units/ g Crm 15 gram) 1 Application Topical 2 times a day\.br\ Unchanged ramipril (ramipril 5 mg Cap) 1 Capsules By Mouth Every day\.br\ Unchanged rivaroxaban (Xarelto 20 mg oral tablet) 1 Tablets By Mouth Every day\.br\ Unchanged tirzepatide (Mounjaro 5 mg/ 0.5 mL subcutaneous solution) 2 mL, 0 Refill(s), INJECT 5MG SUBCUTANEOUSLY EVERY WEEK \.br\ Unchanged tirzepatide (tirzepatide 7.5 mg/ 0.5 mL subcutaneous solution) 7.5 Milligram Subcutaneous Every week\.br\ Allergies\.br\ Fosamax (Joint pain)\.br\ Percocet (Nausea, Hallucinations) \.br\ Tobradex (Blisters, Orbital edema)\.br\ Zocor (aching 4 statins tried)\.br\ metFORMIN (diarrhea)\.br\ traMADol (Abdominal pain)\.br\ oxybutynin (Blisters, Orbital edema)\.br\ AmLODIPine Besylate (hypotension)\. br\ Augmentin (Nausea)\.br\ Neosporin ophthalmic ointment (Rash)\.br\ Tape (adhesive, Rash)\.br\ amoxicillin (Allergic skin rash)\.br\ rosuvastatin (Myalgia)\.br\ Problems\.br\ Ongoing - Any problem that you are currently receiving treatment for.\.br\ Anticoagulated\ .br\ Benign essential hypertension\.b r\ Bilateral leg edema\.br\ BMI 45.0-49.9, adult\.br\ Chronic insomnia\.br\ Class 3 severe obesity due to excess calories with serious comorbidity in adult\.br\ Constipation due to slow transit\.br\ Diastolic dysfunction\.br \ Encounter for medication monitoring\.br\ Fatty liver\.br\ Female stress incontinence\.b r\ Fibromyalgia\.b r\ Hyperlipidemia, mixed\.br\ Inflamed seborrheic keratosis\.br\ Left lumbar radiculitis\.br \ Left ventricular hypertrophy\.br \ Long-term insulin use\.br\ Low vitamin D level\.br\ Moderate recurrent major depression\.br\ Nocturia\.br\ Obstructive sleep apnea syndrome, moderate\.br\ Osteopenia of multiple sites\.br\ Other specified hypothyroidism\ .br\ Pancreatic insufficiency\. 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 Please share your experience with us by completing your survey. We appreciate your feedback and thank you for choosing us for your care.\.br\ Education Materials\.br\ BMI for Adults\.br\ What is BMI?\.br\ Body mass index (BMI) is a number that is calculated from a person's weight and height. BMI can help estimate how much of a person's weight is composed of fat. BMI does not measure body fat directly. Rather, it is an alternative to procedures that directly measure body fat, which can be difficult and expensive.\.br\ BMI can help identify people who may be at higher risk for certain medical problems.\.br\ What are BMI measurements used for?\.br\ BMI is used as a screening tool to identify possible weight problems. It helps determine whether a person is obese, overweight, a healthy weight, or underweight.\.b r\ BMI is useful for:\.br\ ? \.br\ Identifying a weight problem that may be related to a medical condition or may increase the risk for medical problems.\.br\ ? \.br\ Promoting changes, such as changes in diet and exercise, to help reach a healthy weight. BMI screening can be repeated to see if these changes are working.\.br\ How is BMI calculated?\.br \ BMI involves measuring your weight in relation to your height. Both height and weight are measured, and the BMI is calculated from those numbers. This can be done either in [place] ([place] or metric measurements. Note that charts and online BMI calculators are available to help you find your BMI quickly and easily without having to do these calculations yourself.\.br\ To calculate your BMI in [place] measurements:\. br\ \.br\ 1. \.br\ Measure your weight in pounds (lb).\.br\ 2. \.br\ Multiply the number of pounds by 703.\.br\ ? \.br\ For example, for a person who weighs 180 lb, multiply that number by 703, which equals 126,540.\.br\ 3. \.br\ Measure your height in inches. Then multiply that number by itself to get a measurement called inches squared. \.br\ ? \.br\ For example, for a person who is 70 inches tall, the inches squared measurement is 70 inches x 70 inches, which equals 4,900 inches squared.\.br\ 4. \.br\ Divide the total from step 2 (number of lb x 703) by the total from step 3 (inches squared): 126,540 ? 4,900 = 25.8. This is your BMI.\.br\ To calculate your BMI in metric measurements:\. br\ 1. \.br\ Measure your weight in kilograms (kg).\.br\ 2. \.br\ Measure your height in meters (m). Then multiply that number by itself to get a measurement called meters squared. \.br\ ? \.br\ For example, for a person who is 1.75 m tall, the meters squared measurement is 1.75 m x 1.75 m, which is equal to 3.1 meters squared.\.br\ 3. \.br\ Divide the number of kilograms (your weight) by the meters squared number. In this example: 70 ? 3.1 = 22.6. This is your BMI.\.br\ What do the results mean?\.br\ BMI charts are used to identify whether you are underweight, normal weight, overweight, or obese. The following guidelines will be used:\.br\ ? \.br\ Underweight: BMI less than 18.5.\.br\ ? \.br\ Normal weight: BMI between 18.5 and 24.9.\.br\ [facility] Patient Educationon 07-26-20 Patient Education Cardiovascular Atrial Fibrillation Atrial fibrillation is a type of irregular or rapid heartbeat (arrhythmia). In atrial fibrillation, the top part of the heart (atria) beats in an irregular pattern. This makes the heart unable to pump blood normally and effectively. The goal of treatment is to prevent blood clots from forming, control your heart rate, or restore your heartbeat to a normal rhythm. If this condition is not treated, it can cause serious problems, such as a weakened heart muscle (cardiomyopathy) or a stroke. What are the causes? This condition is often caused by medical conditions that damage the heart's electrical system. These include: ? High blood pressure (hypertension). This is the most common cause. ? Certain heart problems or conditions, such as heart failure, coronary artery disease, heart valve problems, or heart surgery. ? Diabetes. ? Overactive thyroid (hyperthyroidism). ? Obesity. ? Chronic kidney disease. In some cases, the cause of this condition is not known. What increases the risk? This condition is more likely to develop in: ? Older people. ? People who smoke. ? Athletes who do endurance exercise. ? People who have a family history of atrial fibrillation. ? Men. ? People who use drugs. ? People who drink a lot of alcohol. ? People who have lung conditions, such as emphysema, pneumonia, or COPD. ? People who have obstructive sleep apnea. What are the signs or symptoms? Symptoms of this condition include: ? A feeling that your heart is racing or beating irregularly. ? Discomfort or pain in your chest. ? Shortness of breath. ? Sudden light-headedness or weakness. ? Tiring easily during exercise or activity. ? Fatigue. ? Syncope (fainting). ? Sweating. In some cases, there are no symptoms. How is this diagnosed? Your health care provider may detect atrial fibrillation when taking your pulse. If detected, this condition may be diagnosed with: ? An electrocardiogram (ECG) to check electrical signals of the heart. ? An ambulatory environmental monitoring specialist to record your heart's activity for a few days. ? A transthoracic echocardiogram (TTE) to create pictures of your heart. ? A transesophageal echocardiogram (VIKTORIA) to create even closer pictures of your heart. ? A stress test to check your blood supply while you exercise. ? Imaging tests, such as a CT scan or chest X-ray. ? Blood tests. How is this treated? Treatment depends on underlying conditions and how you feel when you experience atrial fibrillation. This condition may be treated with: ? Medicines to prevent blood clots or to treat heart rate or heart rhythm problems. ? Electrical cardioversion to reset the heart's rhythm. ? A pacemaker to correct abnormal heart rhythm. ? Ablation to remove the heart tissue that sends abnormal signals. ? Left atrial appendage closure to seal the area where blood clots can form. In some cases, underlying conditions will be treated. Follow these instructions at home: Medicines ? Take over-the counter and prescription medicines only as told by your health care provider. ? Do not take any new medicines without talking to your health care provider. ? If you are taking blood thinners: ? Talk with your health care provider before you take any medicines that contain aspirin or NSAIDs, such as ibuprofen. These medicines increase your risk for dangerous bleeding. ? Take your medicine exactly as told, at the same time every day. ? Avoid activities that could cause injury or bruising, and follow instructions about how to prevent falls. ? Wear a medical alert bracelet or carry a card that lists what medicines you take. Lifestyle ? Do not use any products that contain nicotine or tobacco, such as cigarettes, e-cigarettes, and chewing tobacco. If you need help quitting, ask your health care provider. ? Eat heart-healthy foods. Talk with a dietitian to make an eating plan that is right for you. ? Exercise regularly as told by your health care provider. ? Do not drink alcohol. ? Lose weight if you are overweight. ? Do not use drugs, including cannabis. General instructions ? If you have obstructive sleep apnea, manage your condition as told by your health care provider. ? Do not use diet pills unless your health care provider approves. Diet pills can make heart problems worse. ? Keep all follow-up visits as told by your health care provider. This is important. Contact a health care provider if you: ? Notice a change in the rate, rhythm, or strength of your heartbeat. ? Are taking a blood thinner and you notice more bruising. ? Tire more easily when you exercise or do heavy work. ? Have a sudden change in weight. Get help right away if you have: ? Chest pain, abdominal pain, sweating, or weakness. ? Trouble breathing. (more content not included)... [facility] Pre-Certification Formon Pre-Certification Form [id number] 0TIFF [facility] Consent for Treatmenton Consent for Treatment [id number] 0CD:127 [facility] Patient Letter FTon 2022 Patient Letter [facility] May 02, 2023 NAHED PETERSON [address] [place] [id number] : 1945 Dear Nahed, This is a reminder that you are due for an appointment with [facility]. Please contact our office at [phone] to schedule an appointment at your earliest convenience. Thank you, [facility] XR Chest 2 Viewson 3 XR Chest 2 Views Exam Date/Time: 05/02/2023 13:20 EDT Reason for Exam: R07.81;Chest pain Report IMPRESSION: NO RADIOGRAPHIC EVIDENCE OF ACTIVE DISEASE IN THE CHEST. CLINICAL INFORMATION: Chest pain, R07.81 COMPARISON: SEPTEMBER 23, 2022 FINDINGS: Two views of the chest were obtained. Interval placement of left bipolar shoulder replacement. Cardiopericardial silhouette normal. Pulmonary vasculature normal. Lungs clear. Ordering Provider: Shyla PRUETT FINAL REPORT Dictated: 05/02/2023 1:23 pm Rell Romano MD Signed (Electronic Signature): 05/02/2023 1:23 pm Signed by: Rell Romano MD Transcribed by: JENNIFER Technologist: TAMAR, Technical Comments Radiation Dose: Ka,r in mGy = na DAP = na [facility] XR Ribs 2 Views Righton XR Ribs 2 Views Right Exam Date/Time: 05/02/2023 13:21 EDT Reason for Exam: R07.81;Pain, Non Traumatic Report IMPRESSION: CARDIOMEGALY. CLINICAL HISTORY: Pain, Non Traumatic, R07.81 COMPARISON: None. FINDINGS: 4 views. Chest radiograph shows a bipolar left shoulder replacement. Cardiopericardial silhouette enlarged. Lungs clear. No fracture no bone lesions identified. . Ordering Provider: Shyla PRUETT FINAL REPORT Dictated: 05/02/2023 4:25 pm Rell Romano MD Signed (Electronic Signature): 05/02/2023 4:25 pm Signed by: Rell Romano MD Transcribed by: JENNIFER Technologist: TAMAR Technical Comments Radiation Dose: Ka,r in mGy = na DAP = na [facility] Ambulatory Visit Summaryon 0 04-28-2023 Ambulatory Visit Summary NAHED PETERSON :1945 Visit Date:04/28/2023 Ambulatory Visit Instructions Your Diagnosis Bilateral leg edema Benign essential hypertension Obstructive sleep apnea syndrome, moderate Type 2 diabetes mellitus with morbid obesity Rib pain on right side BMI 45.0-49.9, adult Class 3 severe obesity due to excess calories with serious comorbidity in adult, Morbid (severe) obesity due to excess calories Your Care Team Attending Physician - Shyla PRUETT MD, FAAFP Primary Care Physician - Shyla PRUETT MD, FAAFP This Is Your Medications List insulin glargine (Lantus Solostar Pen 100 units/mL subcutaneous solution) Contact prescribing physician if questions or concerns Misc Prescription (glucometer test strip) Misc Prescription (pen needles) acetaminophen-hydrocod one (acetaminophen-hydroco done 325 mg-5 mg oral tablet) baclofen (baclofen 10 mg Tab) carvedilol (carvedilol 25 mg Tab) diltiazem (Cardizem 60 mg Tab) docusate (Colace 100 mg Cap) duloxetine (duloxetine 30 mg oral delayed release capsule) fluconazole (Diflucan 150 mg Tab) furosemide (furosemide 20 mg Tab) levothyroxine (levothyroxine 75 mcg (0.075 mg) Tab) lidocaine topical (Lidoderm 5% Patch) nystatin topical (nystatin Top 100,000 units/g Crm 15 gram) ramipril (ramipril 5 mg Cap) rivaroxaban (Xarelto 20 mg oral tablet) tirzepatide (Mounjaro 2.5 mg/0.5 mL subcutaneous solution) Procedures Performed Arthroscopy of shoulder with biceps tenodesis (10/07/2022), Injection (01/19/2022), Ablation (11/03/2021), Esophagogastroduodenos copy and polypectomy of duodenum (07/17/2021), Cholecystectomy (03/20/2021), Colonoscopy (06/11/2020), appendectomy, bilateral carpal tunnel elease, Bilateral cataract, Cardiac catheterization, EGD (esophagogastroduodeno scopy) gastric outlet reduction, hysterectomy, L 4-5t toes --- bones and toenails removed, L and R rotator cuff, R hand tendons, R ulna n transposition, right ankle surgery, shoulder surgery, tubes tied. Discharge Vitals Heart Rate (Peripheral) 64 Respiratory Rate 18 Blood Pressure 142/74 Height 160 cm Height 63 in What to do next Scheduled Follow-Up Appointments Tuesday 11:20 AM EST With: FLYNN WELDON FAAFP, Shyla Genao Where: [facility] Family Medicine Office/Clini c Noteon 04-28-2023 Family Medicine Office/Clinic Note Chief Complaint Pt here today for 1 week follow up on bilateral leg. Patient states that she is feeling terrible and is having lower back and right sided pain. States she can't hardly walk, and is using walker at home. Room 5. History of Present Illness The is accompanied by her . She still has pain in her R chest/side as we discussed at an earlier visit. 3 days ago she woke and could not bend over or do anything. She had the worst days 04/25-. Her knees hurt and she has pain in the pretibial areas on both legs. Pain management discussed ordering x-rays, but she was told that if she had broken ribs, there is nothing that can be done about it. She is in severe pain right now. She had an injection on the left lumbar and the left side is better. Next injection is on 05/03/2023 to bilateral lumbar. Her back pain is very low. She is constipated, but she did not want to take a laxative before she came. She denies being constipated chronically. She denies nausea. She gets up every 2 hours at night to urinate. Last night, she got up every hour to urinate. She denies blood in her urine. Her stool is dark, but she has been taking iron again. Reaching, twisting, breathing, and coughing are more bothersome to her right side. Lidocaine patches did not improve her pain. She continues to struggle with edema, minor improvement is reported. Her has been rubbing her legs with lotion every day. When she touches them, she jumps. There are no red spots. The swelling of her legs has improved from last week. Her puts socks on and wraps her legs with an elastic bandage. Dr. Dailey told her that the socks do not do enough, so they have ordered compression socks for big calves. They are pleased that they were able to obtain Mounjaro for reasonable cost and has started 2.5 mg weekly. She seems to be having more low glucose readings in the morning, so she has reduced her insulin. She had low blood glucose at 4:00 AM this morning. She used glucose tablets. At 7:00 AM, she had half a peanut butter sandwich. At 9:00 AM, her fasting blood glucose was 113. Her insulin is at 25 units a.m. and 23 units p.m. Review of Systems PHQ Score Initial Depression Screen Score: 0 As above HPI, otherwise ROS negative Physical Exam Vitals & Measurements HR: 64(Peripheral) RR: 18 BP: 142/74 SpO2: 97% HT: 63 in HT: 160 cm The patient is obese, no acute distress. She is seated in a bariatric wheelchair, her feet are dangling as there are not foot rests on this chair. During conversation, she does not explicitly express pain. Auscultation of the lungs is clear to auscultation. Examination of the chest wall is without rash. She is very specific in indicating her discomfort on the right lateral chest wall in the anterior axillary line over approximately the 6th to 7th rib. There is no crepitance there, no skin changes. Examination of the extremities is with obesity surrounding the knees as well as the ankles. There is edema and accentuation of the fatty tissue bilaterally. This is rated at 3 plus edema overall. Overlying is healthy, no breakdown or dermatitis. Assessment/Plan 1. Bilateral leg edema (R60.0: Localized edema) She states that this is overall improved as they have follow the directions of physician registered medical assistant who most recently saw her. I do not see an indication for increasing diuretics. I reviewed the most recent cardiology consult that she is not known to be in failure and we also have up-to-date evidence that she has no renal disease. She is truly a victim of her pain and immobility and that she is unable to stay seated in a typical chair and elevate her legs without creating pain and numbness to the lower extremities. She does not have a functioning recliner that she can use in this leg. Agree that she continue with the help of her to compress the lower extremities. Ordered: Body Mass Index (BMI) documented 3008F Current tobacco non-user 1036F Depression Screening Negative 3352F Influenza immunization status assessed 1030F Most recent diastolic blood pressure 80-89 mm Hg 3079F Most recent systolic blood pressure >= 140 mm Hg 3077F Patient screen for fall risk: no falls in last year or 1 fall with no injury in last year 1101F 2. Benign essential hypertension (I10: Essential (primary) hypertension) Blood pressure is mildly elevated systolic today, no medication changes recommended. Ordered: Body Mass Index (BMI) documented 3008F Current tobacco non-user 1036F Depression Screening Negative 3352F Influenza immunization status assessed 1030F Most recent diastolic blood pressure 80-89 mm Hg 3079F Most recent systolic blood pressure >= 140 mm Hg 3077F Patient screen for fall risk: no falls in last year or 1 fall with no injury in last year 1101F 3. Obstructive sleep apnea syndrome, moderate (G47.33: Obstructive sleep apnea (adult) (pediatric)) She states she is not treating sleep apnea for quite some time, this could relate to the (more content not included)... [facility] Comment on above: Result Comment: Elec tronically Signed By: FLYNN WELDON FAAFP, Shyla Genao\.br\Date and Time Signed: 04/28/23 19:58 EDT Patient Educationon 04-28-20 Patient Education Orthopedics Acute Pain, Adult Acute pain is a type of sudden pain that may last for just a few days or for as long as six months. It is often related to an illness, injury, or medical procedure. Acute pain may be mild, moderate, or severe. Pain can make it hard for you to do your normal, daily activities. It can cause anxiety and lead to other problems if it is left untreated. Treatment depends on the cause and severity of your pain. Acute pain usually goes away once your injury has healed or you are no longer ill. Follow these instructions at home: Medicines ? Take kyjk-qkt-emcjluf and prescription medicines only as told by your health care provider. ? Take the lowest dose of medicine for the shortest amount of time needed to relieve the pain. ? If you are taking prescription pain medicine: ? Do not stop taking the medicine suddenly. Talk to your health care provider about how and when to discontinue prescription medicine. ? Do not take more pills than told by your health care provider even if your pain is severe. ? Do not take other qkee-kaq-xdmytgp pain medicines in addition to prescription pain medicine unless told by your health care provider. ? Ask your health care provider if the medicine requires you to avoid driving or using heavy machinery. ? Ask your health care provider if the medicine can cause constipation. You may need to take these actions to prevent or treat constipation: ? Drink enough fluid to keep your urine pale yellow. ? Eat foods that are high in fiber, such as beans, whole grains, and fresh fruits and vegetables. ? Take itjk-hhx-dozxgln or prescription medicines. ? Limit foods that are high in fat and processed sugars, such as fried or sweet foods. Managing pain, stiffness, and swelling If directed, put ice on the affected area. To do this: ? Put ice in a plastic bag. ? Place a towel between your skin and the bag. ? Leave the ice on for 20 minutes, 2?3 times a day. If directed, apply heat to the affected area as often as told by your health care provider. Use the heat source that your health care provider recommends, such as a moist heat pack or a heating pad. ? Place a towel between your skin and the heat source. ? Leave the heat on for 20?30 minutes. ? Remove the heat if your skin turns bright red. This is especially important if you are unable to feel pain, heat, or cold. You may have a greater risk of getting burned. Activity ? Rest as told by your health care provider. ? Return to your normal activities as told by your health care provider. Ask your health care provider what activities are safe for you. General instructions ? Check your pain level as told by your health care provider. ? Ask your health care provider if other strategies such as distraction, relaxation, or physical therapies can help your pain. ? Keep all follow-up visits as told by your health care provider. This is important. Contact a health care provider if: ? Your pain is not controlled by medicine. ? Your pain does not improve or gets worse. ? You have side effects from pain medicines, such as vomiting or confusion. Get help right away if you: ? Have severe pain. ? Have trouble breathing. ? Lose consciousness. ? Have chest pain or pressure that lasts for more than a few minutes, or if you have other symptoms along with chest pain, including if you: ? Have pain or discomfort in one or both arms, your back, neck, jaw, or stomach. ? Have shortness of breath. ? Break out in a cold sweat. ? Feel nauseous. ? Become light-headed. These symptoms may represent a serious problem that is an emergency. Do not wait to see if the symptoms will go away. Get medical help right away. Call your local emergency services (911 in the [place] Do not drive yourself to the hospital. Summary ? Acute pain may be mild, moderate, or severe. It usually goes away once your injury has healed or you are no longer ill. ? Take uizs-opw-immqked and prescription medicines only as told by your health care provider. ? Ask your health care provider if the medicine prescribed to you can cause constipation. ? Contact a health care provider if your pain is not controlled by medicine. This information is not intended to replace advice given to you by your health care provider. Make sure you discuss any questions you have with your health care provider. Document Revised: 12/03/2019 Document Reviewed: 12/03/2019 Elsevier Patient Education ? 2022 [employer]. [facility] Family Medicine Office/Clini c Noteon 04-24-2023 Family Medicine Office/Clinic Note Chief Complaint edema HPI Staff complaints of drainage of right ankle Onset:Tuesday Characteristics:Right ankle drainage, clear drainage, sticky, pt has a paper towel over the top of it, bilateral edema , Dr. Duran gave pt lasix but they are not helping with the edema. OTC tried:none History of Present Illness I have reviewed staff HPI and it is correct. Nahed Peterson is a 78-year-old female who is here today with her for concerns regarding fluid seeping out of her left ankle. The patient notes that it started on 04/17/2023. Drainage is reported to be clear and sticky with bilateral edema. Dr. Mansfield gave her a prescription for Lasix 20 mg at previous appointment on 03/28/23, but notes that it is not helping at this time. At appointment discussed need to elevation of legs. Patient has not been elevating due to pain in her back. The swelling issues started a few months ago according to patient. When Dr. Mansfield prescribed the Lasix and it did not help at all. She has been having the swelling issue in her legs for several months. She did not have any problems before. 2 weeks ago, Dr. Mansfield told her that she did not want to put her on a strong Lasix or water pill. She put a paper towel on it because it is wet. It oozes out and it is dripping now. She tried to elevate her legs but it was hurting the back of her legs. She also felt severe hip pain when she tried to elevate her legs. She has Tracy bandages to compress her leg. She also feels pain on her side. She also got diabetic sock yesterday and she tried putting it on last night, 04/18/2023. She verbalizes that it helped a little bit. requesting increase in lasix or addition of HCTZ because that is a medication he takes for his swelling. Patient has no other questions or concerns at this time. Review of Systems PHQ Score Initial Depression Screen Score: 0 All negative except as noted in the HPI Physical Exam Vitals & Measurements HR: 71(Peripheral) BP: 132/66 SpO2: 94% HT: 63 in HT: 160 cm WT: 120.7 kg WT: 265.54 lb BMI: 47.15 General: Morbidly obese female, well hydrated, no acute distress. Mouth: Mucous membranes moist Neck: Supple. Trachea is midline Lungs: Normal respiratory effort and clear to auscultation Cardio: Regular rate and rhythm, normal S1 and S2, no murmur, no rub Extremities: significant 3+ pitting edema bilaterally. Right worse than left. There is small amount of clear serous fluid drainage just superior to the ankle joint range of motion decreased due to body habitus and edema Neurologic: grossly normal Lymph Nodes: No cervical adenopathy, nodes normal Skin: No rashes, ulceration just suspicious lesions on exposed skin. Mental Status: Alert and oriented x3. Flat mood with low affect. Assessment/Plan Total time spent preparing the chart, conducting of the encounter with the patient and family and time spent documenting, reviewing, and ordering tests was 25 minutes. 1. Bilateral leg edema (R60.0: Localized edema) Educated patient extensively on importance of elevating legs and ankles at heart level or elevating them in general. Patient has not been applying her compression socks. She reports her did go ahead and buy diabetic socks and they have been applying those infrequently. Advised to apply diabetic socks and then to wrap with Tracy bandages to try to help decrease fluid. Advised to continue Lasix. Did not feel comfortable adjusting any of her medications at this time due to stable vitals and clear lungs to auscultation. 2. BMI 45.0-49.9, adult (Z68.42: Body mass index [BMI] 45.0-49.9, adult) The standard range for ages 18 and older is >=18.5 and < 25 kg/m2. Your BMI today was above this range, this falls in the overweight to obese category and there are medical benefits to weight loss. We can offer counselling, referral, and/or medical support in addressing this problem. Your BMI and weight management will be followed at subsequent visits. 3. Class 3 severe obesity due to excess calories with serious comorbidity in adult (E66.01: Morbid (severe) obesity due to excess calories) See problem #2. 4. Nonsmoker (Z78.9: Other specified health status) Continue to remain tobacco, nicotine, and smoke free. Patient verbalized understanding and is agreeable to plan and course of treatment. This documentation was completed by voice-activated device and software. Inaccuracies compared to the original dictation of this provider are possible although this document has been overread and corrected. Portions of this record may have been created with voice recognition artificial intelligence software, specifically Scandid, Lala and or [employer]. Substitutions may have occurred due to the inherent limitations of voice recognition and artificial intelligence software. This note has been generated by Aldo ALEXANDRA and edited by Moreno Rowan, Quality Election Watcher. Follow-up (more content not included)... [facility] Comment on above: Result Comment: Elec tronically Signed By: Blanka Contreras PA-C\.br\Date and Time Signed: 04/24/23 20:55 EDT\.br\Electronically Co-Signed By: Moreno Rowan\.br\Date and Time Co-Signed: 04/19/23 20:08 EDT Ambulatory Visit Summaryon 0 04-19-2023 Ambulatory Visit Summary NAHED PETERSON :1945 Visit Date:04/19/2023 Ambulatory Visit Instructions Your Diagnosis Bilateral leg edema BMI 45.0-49.9, adult Class 3 severe obesity due to excess calories with serious comorbidity in adult Nonsmoker Your Care Team Attending Physician - Blanka Contreras PA-C Primary Care Physician - FLYNN WELDON FAAFP, Shyla Genao This Is Your Medications List Misc Prescription (glucometer test strip) Misc Prescription (pen needles) acetaminophen-hydrocod one (acetaminophen-hydroco done 325 mg-5 mg oral tablet) baclofen (baclofen 10 mg Tab) carvedilol (carvedilol 25 mg Tab) diltiazem (Cardizem 60 mg Tab) docusate (Colace 100 mg Cap) duloxetine (duloxetine 30 mg oral delayed release capsule) fluconazole (Diflucan 150 mg Tab) furosemide (furosemide 20 mg Tab) insulin glargine (Lantus Solostar Pen 100 units/mL subcutaneous solution) levothyroxine (levothyroxine 75 mcg (0.075 mg) Tab) lidocaine topical (Lidoderm 5% Patch) nystatin topical (nystatin Top 100,000 units/g Crm 15 gram) ramipril (ramipril 5 mg Cap) rivaroxaban (Xarelto 20 mg oral tablet) tirzepatide (Mounjaro 2.5 mg/0.5 mL subcutaneous solution) Procedures Performed Arthroscopy of shoulder with biceps tenodesis (10/07/2022), Injection (01/19/2022), Ablation (11/03/2021), Esophagogastroduodenos copy and polypectomy of duodenum (07/17/2021), Cholecystectomy (03/20/2021), Colonoscopy (06/11/2020), appendectomy, bilateral carpal tunnel elease, Bilateral cataract, Cardiac catheterization, EGD (esophagogastroduodeno scopy) gastric outlet reduction, hysterectomy, L 4-5t toes --- bones and toenails removed, L and R rotator cuff, R hand tendons, R ulna n transposition, right ankle surgery, shoulder surgery, tubes tied. Discharge Vitals Heart Rate (Peripheral) 71 Blood Pressure 132/66 Height 160 cm Height 63 in Weight 120.7 kg Weight 265.54 lb BMI 47.15 What to do next Scheduled Follow-Up Appointments 2022 2:40 PM EDT With: Shyla PRUETT MD, FAAFP Where: [facility] [place] [facility] [address] [place] [phone] \.br\ You Need to Schedule the Following Appointments\.b r\ Follow Up with Shyla PRUETT MD, FAAFP, [facility] When: In 1 week\.br\ Comments:\.br\ for edema FU\.br\ Where:\.br\ [address] [place] [address]\.br\ [place] [id number].br\ Medications\.br \ What How Much When Why Instructions\.b r\ Unchanged acetaminophen-h ydrocodone (acetaminophen- hydrocodone 325 mg-5 mg oral tablet) 1 Tablets By Mouth 3 times a day as needed for Pain 4-7\.br\ Unchanged baclofen (baclofen 10 mg Tab) 1 Tablets By Mouth 3 times a day as needed for Muscle pain\.br\ Unchanged carvedilol (carvedilol 25 mg Tab) 0.5 Tablets By Mouth 2 times a day\.br\ Unchanged diltiazem (Cardizem 60 mg Tab) 1 Tablets By Mouth 3 times a day\.br\ Unchanged docusate (Colace 100 mg Cap) 1 Capsules By Mouth 2 times a day as needed for for constipation\.b r\ Unchanged duloxetine (duloxetine 30 mg oral delayed release capsule) 1 Capsules By Mouth Every day\.br\ Unchanged fluconazole (Diflucan 150 mg Tab) 1 Tablets By Mouth Once repeat after 3 days x1 if not improving \.br\ Unchanged furosemide (furosemide 20 mg Tab) 1 Tablets By Mouth Every day\.br\ Unchanged insulin glargine (Lantus Solostar Pen 100 units/ mL subcutaneous solution) 30 Units Subcutaneous 2 times a day\.br\ Unchanged levothyroxine (levothyroxine 75 mcg (0.075 mg) Tab) 1 Tablets By Mouth Every day\.br\ Unchanged lidocaine topical (Lidoderm 5% Patch) 1 Patches Topical Every day apply 12 hours on and 12 hours off daily \.br\ Unchanged Misc Prescription (glucometer test strip) See instructions Long-term insulin use Type 2 diabetes mellitus with diabetic autonomic (poly)neuropath y test QID \.br\ Unchanged Misc Prescription (pen needles) See instructions Type 2 diabetes mellitus with diabetic autonomic (poly)neuropath y Long-term insulin use 31G, 3/ 16 , 5mm. use daily with insulin \.br\ Unchanged nystatin topical (nystatin Top 100,000 units/ g Crm 15 gram) 1 Application Topical 2 times a day\.br\ Unchanged ramipril (ramipril 5 mg Cap) 1 Capsules By Mouth Every day\.br\ Unchanged rivaroxaban (Xarelto 20 mg oral tablet) 1 Tablets By Mouth Every day\.br\ Unchanged tirzepatide (Mounjaro 2.5 mg/ 0.5 mL subcutaneous solution) 2.5 Milligram Subcutaneous Every week\.br\ Medications and Immunizations Administered\.b r\ Not Given\.br\ influenza virus vaccine, inactivated, Postpone due to refusal\.br\ Allergies\.br\ Fosamax (Joint pain)\.br\ Percocet (Nausea, Hallucinations) \.br\ Tobradex (Blisters, Orbital edema)\.br\ Zocor (aching 4 statins tried)\.br\ metFORMIN (diarrhea)\.br\ traMADol (Abdominal pain)\.br\ oxybutynin (Blisters, Orbital edema)\.br\ AmLODIPine Besylate (hypotension)\. br\ Augmentin (Nausea)\.br\ Neosporin ophthalmic ointment (Rash)\.br\ Tape (adhesive, Rash)\.br\ amoxicillin (Allergic skin rash)\.br\ rosuvastatin (Myalgia)\.br\ Problems\.br\ Ongoing - Any problem that you are currently receiving treatment for.\.br\ Anticoagulated\ .br\ Benign essential hypertension\.b r\ Bilateral leg edema\.br\ BMI 45.0-49.9, adult\.br\ Chronic insomnia\.br\ Class 3 severe obesity due to excess calories with serious comorbidity in adult\.br\ Constipation due to slow transit\.br\ Diastolic dysfunction\.br \ Encounter for medication monitoring\.br\ Fatty liver\.br\ Female stress incontinence\.b r\ Fibromyalgia\.b r\ Hyperlipidemia, mixed\.br\ Inflamed seborrheic keratosis\.br\ Intercostal muscle strain\.br\ Left lumbar radiculitis\.br \ Left ventricular hypertrophy\.br \ Long-term insulin use\.br\ Low vitamin D level\.br\ Moderate recurrent major depression\.br\ Morbid obesity\.br\ Nocturia\.br\ Obstructive sleep apnea syndrome, moderate\.br\ Osteopenia of multiple sites\.br\ Other specified hypothyroidism\ .br\ Pancreatic insufficiency\. 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 Peripheral edema most often affects the lower legs, ankles, and feet. It can also develop in the arms, hands, and face. The area of the body that has peripheral edema will look swollen. It may also feel heavy or warm. Your clothes may start to feel tight. Pressing on the area may make a temporary dent in your skin (pitting edema). You may not be able to move your swollen arm or leg as much as usual. There are many causes of peripheral edema. It can happen because of a complication of other conditions such as heart failure, kidney disease, or a problem with your circulation. It also can be a side effect of certain medicines or happen because of an infection. It often happens to women during . Sometimes, the cause is not known. Follow these instructions at home: Managing pain, stiffness, and swelling ? Raise (elevate) your legs while you are sitting or lying down. ? Move around often to prevent stiffness and to reduce swelling. ? Do not sit or stand for long periods of time. ? Do not wear tight clothing. Do not wear garters on your upper legs. ? Exercise your legs to get your circulation going. This helps to move the fluid back into your blood vessels, and it may help the swelling go down. ? Wear compression stockings as told by your health care provider. These stockings help to prevent blood clots and reduce swelling in your legs. It is important that these are the correct size. These stockings should be prescribed by your doctor to prevent possible injuries. ? If elastic bandages or wraps are recommended, use them as told by your health care provider. Medicines ? Take wyjz-qcz-vbpsjzd and prescription medicines only as told by your health care provider. ? Your health care provider may prescribe medicine to help your body get rid of excess water (diuretic). Take this medicine if you are told to take it. General instructions ? Eat a low-salt (low-sodium) diet as told by your health care provider. Sometimes, eating less salt may reduce swelling. ? Pay attention to any changes in your symptoms. ? Moisturize your skin daily to help prevent skin from cracking and draining. ? Keep all follow-up visits. This is important. Contact a health care provider if: ? You have a fever. ? You have swelling in only one leg. ? You have increased swelling, redness, or pain in one or both of your legs. ? You have drainage or sores at the area where you have edema. Get help right away if: ? You have edema that starts suddenly or is getting worse, especially if you are or have a medical condition. ? You develop shortness of breath, especially when you are lying down. ? You have pain in your chest or abdomen. ? You feel weak. ? You feel like you will faint. These symptoms may be an emergency. Get help right away. Call 911. ? Do not wait to see if the symptoms will go away. ? Do not drive yourself to the hospital. Summary ? Peripheral edema is swelling that is caused by a buildup of fluid. Peripheral edema most often affects the lower legs, ankles, and feet. ? Move around often to prevent stiffness and to reduce swelling. Do not sit or stand for long periods of time. ? Pay attention to any changes in your symptoms. ? Contact a health care provider if you have edema that starts suddenly or is getting worse, especially if you are or have a medical condition. ? Get help right away if you develop shortness of breath, especially when lying down. This information is not intended to replace advice given to you by your health care provider. Make sure you discuss any questions you have with your health care provider. Document Revised: 03/22/2022 Document Reviewed: 03/22/2022 [employer] Patient Education ? 2022 [employer] [facility] Ambulatory Visit Summaryon 0 03-28-2023 Ambulatory Visit Summary NAHED PETERSON :1945 Visit Date:03/28/2023 Ambulatory Visit Instructions Your Diagnosis Intercostal muscle strain Bilateral leg edema Type 2 diabetes mellitus with polyneuropathy BMI 45.0-49.9, adult Morbid obesity Your Care Team Attending Physician - Shyla PRUETT MD, FAAFP Primary Care Physician - Shyla PRUETT MD, FAAFP This Is Your Medications List lidocaine topical (Lidoderm 5% Patch) tirzepatide (Mounjaro 2.5 mg/0.5 mL subcutaneous solution) Contact prescribing physician if questions or concerns Misc Prescription (glucometer test strip) Misc Prescription (pen needles) acetaminophen-hydrocod one (acetaminophen-hydroco done 325 mg-5 mg oral tablet) baclofen (baclofen 10 mg Tab) carvedilol (carvedilol 25 mg Tab) diltiazem (Cardizem 60 mg Tab) docusate (Colace 100 mg Cap) duloxetine (duloxetine 30 mg oral delayed release capsule) fluconazole (Diflucan 150 mg Tab) furosemide (furosemide 20 mg Tab) insulin glargine (Lantus Solostar Pen 100 units/mL subcutaneous solution) levothyroxine (levothyroxine 75 mcg (0.075 mg) Tab) nystatin topical (nystatin Top 100,000 units/g Crm 15 gram) ramipril (ramipril 5 mg Cap) rivaroxaban (Xarelto 20 mg oral tablet) [Image Removed: STOP]Stop taking these medications acetaminophen-hydrocod one (acetaminophen-hydroco done 325 mg-5 mg oral tablet) doxepin (doxepin 10 mg Cap) Procedures Performed Arthroscopy of shoulder with biceps tenodesis (10/07/2022), Injection (01/19/2022), Ablation (11/03/2021), Esophagogastroduodenos copy and polypectomy of duodenum (07/17/2021), Cholecystectomy (03/20/2021), Colonoscopy (06/11/2020), appendectomy, bilateral carpal tunnel elease, Bilateral cataract, Cardiac catheterization, EGD (esophagogastroduodeno scopy) gastric outlet reduction, hysterectomy, L 4-5t toes --- bones and toenails removed, L and R rotator cuff, R hand tendons, R ulna n transposition, right ankle surgery, shoulder surgery, tubes tied. Discharge Vitals Temperature (Temporal Artery) 36.3 ?C Heart Rate (Peripheral) 70 Respiratory Rate 16 Blood Pressure 138/82 Height 160 cm Height 63 in What to do next Scheduled Follow-Up Appointments Tuesday 11:20 AM EST With: Shyla PRUETT MD, FAAFP J Where: [facility] Family Medicine Office/Clini c Noteon 03-28-2023 Family Medicine Office/Clinic Note Chief Complaint Pt here for right side rib pain started tuesday while sitting in chair, insurance won't cover another month of mounjaro with BSS low 3x past two weeks, swelling in feet and ankles room 5 History of Present Illness Sylwia is accompanied by her , Matteo. Her right side started hurting 2 days ago. It hurts when she breathes, coughs, or reaches for anything. Sometimes it feels like she has 2 ribs rubbing together. She was just sitting when it happened. She has not fallen but Will recalls her reaching to the left across her body on the day prior to this onset. Sometimes she twists when her leg goes out from under her, but nothing that should have caused this. She wonders if it is shingles. She can not sleep. It feels best if she can roll on her right side, but if she does that, her L posterior hip hurts. She has been coughing also since this pain began. She was scheduled for an lumbar injection by pain management in her back on 02/12/2023, but it was rescheduled to 04/03/2023. She takes 3 hydrocodone and 3 baclofen per day per recommendation of pain management. She mixes Vicks and Voltaren and puts it on her hip. Her blood sugar goes low every once in a while, she feels this as lightheadedness,. This morning had the symptoms, ate a snack and checked her blood sugar afterwards which was 80. Her highest recent blood sugar was 160. She has taken 2.5 mg Mounjaro for 3 weeks and is thus far tolerating this, this was changed from Trulicity but now she understands from her insurance that the Mounjaro may not be covered. With lower blood sugar she has decreased her Lantus doses somewhat. She has swelling in her legs. Lasix does not seem to do anything. She sits a lot. She uses a walker to walk. She wonders if lymphatic detox would help. Review of Systems PHQ Score Initial Depression Screen Score: 1 As above HPI, otherwise ROS negative Physical Exam Vitals & Measurements T: 36.3 ?C(Temporal Artery) HR: 70(Peripheral) RR: 16 BP: 138/82 SpO2: 93% HT: 63 in HT: 160 cm PHYSICAL EXAM Constitutional: The patient is seated in the exam room in her wheelchair. She becomes tearful when discussing her pain. Lungs: Clear to auscultation throughout. Heart: Regular rate and rhythm. Musculoskeletal: She is tender in the right inferior axillary area approximately the level of the fifth and sixth ribs. There is no overlying rash, there is no crepitance. We note while she is in this wheelchair that her feet are dangling. Assessment/Plan 1. Intercostal muscle strain (S29.011A: Strain of muscle and tendon of front wall of thorax, initial encounter) Her symptoms are most consistent with muscle strain, she did report some preceding event where she was reaching across the left side of her body with her right arm. She is already under pain management, taking an increased dose of baclofen as well as [place]. She is not to take NSAIDs because of anticoagulation. This leaves us with few acute pain options, recommend Tylenol orally but to avoid the amount of acetaminophen that is in the [place]. Also recommend lidocaine patch which is prescribed, apply heat intermittently while she is on the 12 hours off the patch. At this point I see no imaging indications. We warned that if she is splinting and avoiding deep breaths that she risks pneumonia. 2. Bilateral leg edema (R60.0: Localized edema) This is a chronic issue but increased lately, she admits that she is much less active due to the severity of her chronic lumbar pain at this point. She is on 20 mg of Lasix, I do not believe that is the answer in this case to increase the Lasix. She is to elevate her lower extremities, apply compression but she has complaints of back pain and inability to apply certain types of compression which makes it very difficult to be helpful. 3. Type 2 diabetes mellitus with polyneuropathy (E11.42: Type 2 diabetes mellitus with diabetic polyneuropathy) She reports some low blood sugar readings as she is trying to begin Mounjaro although her insurance is now threatening not to cover this. We will send a new 4-week prescription for 2.5 mg Mounjaro to stimulate her insurance to decide if this will be covered or not. Meantime to avoid hypoglycemia would recommend that she decrease her insulin doses to 28 units twice daily. If she is still having hypoglycemia she should decrease Lantus doses to 25 units BID. 4. BMI 45.0-49.9, adult (Z68.42: Body mass index [BMI] 45.0-49.9, adult) Urged healthy diet with decreased calories and increased vegetables. Encouraged increased activity and a goal of 150min per week of exercise. Ordered: Body Mass Index (BMI) documented 3008F Current tobacco non-user 1036F Depression Screening Negative 3352F HBA1C 8.0 to <9.0 Most Recent Level 3052F Influenza immunization status assessed 1030F Most recent diastolic blood pressure 80-89 mm Hg 3079F Patient screen for fall risk: no falls in last year or 1 fall with no injury in last year 1101F Pne (more content not included)... [facility] Comment on above: Result Comment: Elec tronically Signed By: FLYNN WELDON FAAFP, Shyla Genao\.br\Date and Time Signed: 03/28/23 21:59 EDT Patient Educationon 03-28-20 Patient Education Nephrology Peripheral Edema Peripheral edema is swelling that is caused by a buildup of fluid. Peripheral edema most often affects the lower legs, ankles, and feet. It can also develop in the arms, hands, and face. The area of the body that has peripheral edema will look swollen. It may also feel heavy or warm. Your clothes may start to feel tight. Pressing on the area may make a temporary dent in your skin (pitting edema). You may not be able to move your swollen arm or leg as much as usual. There are many causes of peripheral edema. It can happen because of a complication of other conditions such as heart failure, kidney disease, or a problem with your circulation. It also can be a side effect of certain medicines or happen because of an infection. It often happens to women during . Sometimes, the cause is not known. Follow these instructions at home: Managing pain, stiffness, and swelling ? Raise (elevate) your legs while you are sitting or lying down. ? Move around often to prevent stiffness and to reduce swelling. ? Do not sit or stand for long periods of time. ? Do not wear tight clothing. Do not wear garters on your upper legs. ? Exercise your legs to get your circulation going. This helps to move the fluid back into your blood vessels, and it may help the swelling go down. ? Wear compression stockings as told by your health care provider. These stockings help to prevent blood clots and reduce swelling in your legs. It is important that these are the correct size. These stockings should be prescribed by your doctor to prevent possible injuries. ? If elastic bandages or wraps are recommended, use them as told by your health care provider. Medicines ? Take [id number] and prescription medicines only as told by your health care provider. ? Your health care provider may prescribe medicine to help your body get rid of excess water (diuretic). Take this medicine if you are told to take it. General instructions ? Eat a low-salt (low-sodium) diet as told by your health care provider. Sometimes, eating less salt may reduce swelling. ? Pay attention to any changes in your symptoms. ? Moisturize your skin daily to help prevent skin from cracking and draining. ? Keep all follow-up visits. This is important. Contact a health care provider if: ? You have a fever. ? You have swelling in only one leg. ? You have increased swelling, redness, or pain in one or both of your legs. ? You have drainage or sores at the area where you have edema. Get help right away if: ? You have edema that starts suddenly or is getting worse, especially if you are or have a medical condition. ? You develop shortness of breath, especially when you are lying down. ? You have pain in your chest or abdomen. ? You feel weak. ? You feel like you will faint. These symptoms may be an emergency. Get help right away. Call 911. ? Do not wait to see if the symptoms will go away. ? Do not drive yourself to the hospital. Summary ? Peripheral edema is swelling that is caused by a buildup of fluid. Peripheral edema most often affects the lower legs, ankles, and feet. ? Move around often to prevent stiffness and to reduce swelling. Do not sit or stand for long periods of time. ? Pay attention to any changes in your symptoms. ? Contact a health care provider if you have edema that starts suddenly or is getting worse, especially if you are or have a medical condition. ? Get help right away if you develop shortness of breath, especially when lying down. This information is not intended to replace advice given to you by your health care provider. Make sure you discuss any questions you have with your health care provider. Document Revised: 03/22/2022 Document Reviewed: 03/22/2022 Elsevier Patient Education ? 2022 [employer] [facility] RAD - MRI Reporton RAD - MRI Report [id number] [facility] Ambulatory Visit Summaryon 0 02-14-2023 Ambulatory Visit Summary NAHED PETERSON :1945 Visit Date:02/14/2023 Ambulatory Visit Instructions Your Diagnosis Dysesthesia Inflamed seborrheic keratosis Anticoagulated Your Care Team Attending Physician - Shyla PRUETT MD, FAAFP Primary Care Physician - Shyla PRUETT MD, FAAFP This Is Your Medications List tirzepatide (Mounjaro 2.5 mg/0.5 mL subcutaneous solution) Contact prescribing physician if questions or concerns Misc Prescription (glucometer test strip) Misc Prescription (pen needles) acetaminophen-hydrocod one (acetaminophen-hydroco done 325 mg-5 mg oral tablet) baclofen (baclofen 10 mg Tab) carvedilol (carvedilol 25 mg Tab) diltiazem (Cardizem 60 mg Tab) docusate (Colace 100 mg Cap) doxepin (doxepin 10 mg Cap) duloxetine (duloxetine 30 mg oral delayed release capsule) fluconazole (Diflucan 150 mg Tab) furosemide (furosemide 20 mg Tab) insulin glargine (Lantus Solostar Pen 100 units/mL subcutaneous solution) levothyroxine (levothyroxine 75 mcg (0.075 mg) Tab) nystatin topical (nystatin Top 100,000 units/g Crm 15 gram) ramipril (ramipril 5 mg Cap) rivaroxaban (Xarelto 20 mg oral tablet) [Image Removed: STOP]Stop taking these medications acetaminophen-hydrocod one (acetaminophen-hydroco done 325 mg-5 mg oral tablet) cetirizine (cetirizine 10 mg oral capsule) cyanocobalamin (Vitamin B12 1000 mcg Tab) ferrous gluconate (ferrous gluconate 256 mg (28 mg elemental iron) oral tablet) liraglutide (Victoza 6 mg/mL subcutaneous injection) rosuvastatin (rosuvastatin 10 mg Tab) Procedures Performed Arthroscopy of shoulder with biceps tenodesis (10/07/2022), Injection (01/19/2022), Ablation (11/03/2021), Esophagogastroduodenos copy and polypectomy of duodenum (07/17/2021), Cholecystectomy (03/20/2021), Colonoscopy (06/11/2020), appendectomy, bilateral carpal tunnel elease, Bilateral cataract, Cardiac catheterization, EGD (esophagogastroduodeno scopy) gastric outlet reduction, hysterectomy, L 4-5t toes --- bones and toenails removed, L and R rotator cuff, R hand tendons, R ulna n transposition, right ankle surgery, shoulder surgery, tubes tied. Discharge Vitals Heart Rate (Peripheral) 76 Respiratory Rate 16 Blood Pressure 148/68 Height 63 in Height 160 cm Weight 259.6 lb Weight 118 kg BMI 46.09 What to do next Scheduled Follow-Up Appointments Tuesday 1:00 PM EDT With: Where: [facility] Invalid Interpretation Code [address] [place], [place] [id number]- \.br\ Tuesday 11:20 AM EST \.br\ With: FLYNN WELDON FAA, Shyla Genao\.br\ Where: [facility] Medicine Office/Clini c Noteon 02-14-2023 Family Medicine Office/Clinic Note Chief Complaint Pt here for skin lesion removal wiht , AWV scheduled 02/21/23v room 5 History of Present Illness She returns today with her for removal of skin lesions. As previously discussed, she has been picking at raised lesions on the left side of her neck on the right synagogue for quite some time and requests these to be removed. These have been determined to be benign seborrheic keratoses however irritated as they are. She takes Xarelto chronic anticoagulation for atrial fibrillation thus we made a plan based upon these needs. At recent visit we also discussed difficulties with cost on her diabetes medication, she seems to have come to the maximum benefit of Victoza and we offered Mounjaro. states that he is discussed with their insurance provider and it appears that a monthly prescription of Mounjaro may be reasonable cost for them thus they request Mounjaro be prescribed. Review of Systems PHQ Score Initial Depression Screen Score: 0 Skin: No other skin lesions of concern, no rashes. ANDREW is otherwise as above HPI Physical Exam Vitals & Measurements HR: 76(Peripheral) RR: 16 BP: 148/68 SpO2: 95% HT: 63 in HT: 160 cm WT: 118 kg WT: 259.6 lb BMI: 46.09 General: Patient is obese, no acute distress. Musculoskeletal: Her gait is slowed and without focal antalgia however we noticed a shortened gait. She uses a minor assist by holding onto her 's right arm by her left hand. Skin: Left neck approximately midpoint between the mastoid and the clavicle with a seborrheic keratoses in 2 portions, this is also raised centrally and measures approximately 6 mm. The right synagogue with an excoriated flatter seborrheic keratosis 1 cm. Procedure Discussed with patient the proposed procedure, indications and risks versus benefits. Patient gives verbal consent prior to procedure. 2 areas of seborrheic keratosis as described above are prepped with Betadine x3 and an alcohol swipe. Each of these is anesthetized with a wheal of 1% lidocaine with epinephrine. 5 mm curette is used to shave both of these lesions to the epidermis, Hyfrecator is lose on low power to provide spot anticoagulation. Due to her topical allergy to Neosporin we placed a dry adhesive bandage over both of these areas. Assessment/Plan 1. Inflamed seborrheic keratosis (L82.0: Inflamed seborrheic keratosis) Procedure as above. We discussed expectations, leave the bandages on until tomorrow and monitor daily for crust formation, localized signs of any infection and call immediately if there is concern. Certainly avoid scratching these areas. Pathology evaluation was not necessary, no specimen is sent Ordered: Office Visit No Charge Shave Skin Lesion, scalp, neck, hands, feet, genitalia1.1 to 2.0 cm 07046 2. 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 Interestingly, notes that it ended up being cheaper to use Xarelto then to use warfarin along with all of the monitoring costs. Ordered: Office Visit No Charge Shave Skin Lesion, scalp, neck, hands, feet, genitalia1.1 to 2.0 cm [id number] Orders: tirzepatide, 2.5 mg, SubCutaneous, qWeek, # 4 EA, Refills(s) 0, Pharmacy: [facility], 160, cm, 02/14/23 11:35:00 EDT, Height/Length Dosing, 118, kg, 02/14/23 11:35:00 EDT, Weight Dosing Body Mass Index (BMI) documented 3008F Current tobacco non-user 1036F Depression Screening Negative 3352F Fall Risk Screen 2 or more w/injury 1100F HBA1C 8.0 to <9.0 Most Recent Level 3052F Influenza immunization status assessed 1030F Most recent diastolic blood pressure <80 mm Hg 3078F Most recent LDL-C > or = 130 mg/dL 3050F Most recent systolic blood pressure >= 140 mm Hg 3077F Pneumococcus immunization status assessed 1022F Portions of this record may have been created with voice recognition artificial intelligence software, specifically Scandid, Lala and or [employer]. Substitutions may have occurred due to the inherent limitations of voice recognition and artificial intelligence software. Follow-up With When Contact Information FLYNN WELDON FAAFP, Shyla Genao, [facility] Additional Instructions: return as otherwise Patient Education Seborrheic Keratosis Problem List/Past Medical History Ongoing Anticoagulated Benign essential hypertension Bilateral leg edema BMI 45.0-49.9, adult Chronic insomnia Class 3 severe obesity due to excess calories with serious comorbidity in adult Constipation due to slow transit Diastolic dysfunction Encounter for medication monitoring Fatty liver Female stress incontinence Fibromyalgia Hyperlipidemia, mixed Inflamed seborrheic keratosis Left lumbar radiculitis Left ventricular hypertrophy Long-term insulin use Low vitamin D level Moderate recurrent major depression Morbid obesity Noct (more content not included)... [facility] Comment on above: Result Comment: Elec tronically Signed By: Shyla PRUETT MD, FAAFP\.br\Date and Time Signed: 02/14/23 12:12 EDT Patient Educationon 02-15-20 Patient Education Oncology Seborrheic Keratosis A seborrheic keratosis is a common, noncancerous (benign) skin growth. These growths are velvety, waxy, rough, thompson, brown, or black spots that appear on the skin. These skin growths can be flat or raised, and scaly. What are the causes? The cause of this condition is not known. What increases the risk? You are more likely to develop this condition if you: ? Have a family history of seborrheic keratosis. ? Are 50 or older. ? Are . ? Have had estrogen replacement therapy. What are the signs or symptoms? Symptoms of this condition include growths on the face, chest, shoulders, back, or other areas. These growths: ? Are usually painless, but may become irritated and itchy. ? Can be yellow, brown, black, or other colors. ? Are slightly raised or have a flat surface. ? Are sometimes rough or wart-like in texture. ? Are often velvety or waxy on the surface. ? Are round or oval-shaped. ? Often occur in groups, but may occur as a single growth. How is this diagnosed? This condition is diagnosed with a medical history and physical exam. ? A sample of the growth may be tested (skin biopsy). ? You may need to see a ignition specialist (account service associate). How is this treated? Treatment is not usually needed for this condition, unless the growths are irritated or bleed often. ? You may also choose to have the growths removed if you do not like their appearance. ? Most commonly, these growths are treated with a procedure in which liquid nitrogen is applied to freeze off the growth (cryosurgery). ? They may also be burned off with electricity (electrocautery) or removed by scraping (curettage). Follow these instructions at home: ? Watch your growth for any changes. ? Keep all follow-up visits as told by your health care provider. This is important. ? Do not scratch or pick at the growth or growths. This can cause them to become irritated or infected. Contact a health care provider if: ? You suddenly have many new growths. ? Your growth bleeds, itches, or hurts. ? Your growth suddenly becomes larger or changes color. Summary ? A seborrheic keratosis is a common, noncancerous (benign) skin growth. ? Treatment is not usually needed for this condition, unless the growths are irritated or bleed often. ? Watch your growth for any changes. ? Contact a health care provider if you suddenly have many new growths or your growth suddenly becomes larger or changes color. ? Keep all follow-up visits as told by your health care provider. This is important. This information is not intended to replace advice given to you by your health care provider. Make sure you discuss any questions you have with your health care provider. Document Revised: 05/12/2022 Document Reviewed: 05/12/2022 [employer] Patient Education ? 2022 [employer]. [facility] Family Medicine Office/Clini c Noteon 02-11-2023 Family Medicine Office/Clinic Note Chief Complaint Pt here for mole son face and neck with room 5 History of Present Illness Sylwia is accompanied by her . She has 2 skin lesions about the head and neck that are bothering her, she admits scratching at these and would like to consider these to be removed. There is no bleeding, no failure to heal except that she is frequently scratching at these, they are slightly raised and not new lesions. She admits to being stressed lately and likely has increased her picking at these areas. Her is honest in stating that the cost of Victoza is significant and they are questioning whether or not this is worth the money as she does not have hemoglobin A1c to goal and she is gaining weight. She denies any side effects from the Victoza and has been taking this for quite some time at its maximum dose. Her hemoglobin A1c is 8.4 percent. She is currently taking Lantus 30 U a.m. and 27 U p.m. She is trying to work on weight loss with Yoselin Mills. She admits to difficulty managing stress and that this leads to weight gain. She is not exercising, now dealing with back pain. They wonder if I would have been given a copy of the reading of her recent MRI ordered by pain management and I have not. Review of Systems PHQ Score Initial Depression Screen Score: 0 Review of systems is as per above in HPI. Physical Exam Vitals & Measurements T: 36.8 ?C(Temporal Artery) HR: 78(Peripheral) RR: 16 BP: 138/82 SpO2: 96% HT: 63 in HT: 160 cm WT: 118 kg WT: 259.6 lb BMI: 46.09 General: Patient is morbidly obese, no acute distress. Psychiatric: Children lies, some underlying stress discussing the marital problems of her son. She also continues to exhibit pain by sitting uncomfortably on the edge of the chair with decreased lumbar lordosis. Skin: Areas of concern on the left lateral neck and the right synagogue where she has seborrheic keratoses which are brown in color, no irregularity except for excoriations. The lesion on the left neck is less than 1 cm and the lesion on the right synagogue is flatter and approximately 1 cm. Assessment/Plan 1. Inflamed seborrheic keratosis (L82.0: Inflamed seborrheic keratosis) These lesions certainly are being agitated by the patient and I linked this to her level anxiety at this point. These can be removed by curette and cautery, however, she is anticoagulated and I would like to have better planning and time so that we can utilize the correct tools and also have the hyfrecator available. I have described the intended procedures for the patient. 2. Type 2 diabetes mellitus with morbid obesity (E11.69: Type 2 diabetes mellitus with other specified complication) They are seeing lack of any improvement in diabetes and certainly in the weight loss by using Victoza now router operator radial. Because of significant cost, they have asked that there be other options discussed which, for the cost, would be to consider changing to Mounjaro as a GLP-1 medication along with her insulin. Unfortunately, she does not tolerate metformin and her hemoglobin A1c most recently was 8.4%. A sulfonylurea is not chosen due to weight gain characteristics and also she is likely making minimal [place] insulin. Her will look into whether or not it is even possible by cost to change to Mounjaro and let me know if this should be prescribed. Otherwise we will be uptitrating her insulin 3. Left lumbar radiculitis (M54.16: Radiculopathy, lumbar region) This is an ongoing issue, she has at least been able to see and develop plans with her pain management physician, however, there is no communication to this office so I am unable to converse with any informed way about the results of her recent MRI. It appears that further pain management interventions are planned and apparently she is not a surgical candidate which overall is a safer route for her. 4. BMI 45.0-49.9, adult (Z68.42: Body mass index [BMI] 45.0-49.9, adult) Urged healthy diet with decreased calories and increased vegetables. Encouraged increased activity and a goal of 150 minutes per week of exercise. Ordered: Body Mass Index (BMI) documented 3008F Current tobacco non-user 1036F Depression Screening Negative 3352F HBA1C 8.0 to <9.0 Most Recent Level 3052F Influenza immunization status assessed 1030F Most recent diastolic blood pressure 80-89 mm Hg 3079F Most recent LDL-C > or = 130 mg/dL 3050F Patient screen for fall risk: no falls in last year or 1 fall with no injury in last year 1101F Pneumococcus immunization status assessed 1022F Systolic BP 130-139 mm Hg (Most Recent) 3075F 5. Morbid obesity, (E66.01: Morbid (severe) obesity due to excess calories)Morbid (severe) obesity due to excess calories Increases risk to sequelae of type 2 diabetes and we note that she is involved in monthly weight loss visits here. Portions of this record may have been created with voice recognition artificial intelligence software, specifically Scandid, Lala and or (more content not included)... [facility] Comment on above: Result Comment: Elec tronically Signed By: Shyla PRUETT MD, FAAFP\.br\Date and Time Signed: 02/11/23 19:10 EDT\.br\Electronically Co-Signed By: Pari Hicks\.br\Date and Time Co-Signed: 02/11/23 15:26 EDT Family Medicine Office/Clinic Note Chief Complaint Pt here for mole son face and neck with room 5 History of Present Illness Nahed Peterson presents today for an evaluation. She is accompanied by her . She has a lesion on her neck that has increased in size. She has lost a significant amount of weight since her last visit. She is currently taking Victoza. She has been on Victoza for years. She is gaining weight. She denies any side effects from the Victoza. She is constipated and nauseated. Her hemoglobin A1c is 8.4 percent. She is currently taking 30 units of Lantus and 27 units of Lantus. She still has severe pain in her back. She had an x-ray in the beginning of 12/2022. Review of Systems PHQ Score Initial Depression Screen Score: 0 Review of systems is as per above in HPI. Physical Exam Vitals & Measurements T: 36.8 ?C(Temporal Artery) HR: 78(Peripheral) RR: 16 BP: 138/82 SpO2: 96% HT: 63 in HT: 160 cm WT: 118 kg WT: 259.6 lb BMI: 46.09 General: Patient is morbidly obese, no acute distress. Psychiatric: Children lies, some underlying stress discussing the marital problems of her son. She also continues to exhibit pain by sitting uncomfortably on the edge of the chair with decreased lumbar lordosis. Skin: Areas of concern on the left lateral neck and the right synagogue where she has seborrheic keratoses which are brown in color, no irregularity except for excoriations. The lesion on the left neck is less than 1 cm and the lesion on the right synagogue is flatter and approximately 1 cm. Assessment/Plan 1. Inflamed seborrheic keratosis (L82.0: Inflamed seborrheic keratosis) These lesions certainly are being agitated by the patient and I linked this to her level anxiety at this point. These can be removed by curette and cautery, however, she is anticoagulated and I would like to have better planning and time so that we can utilize the correct tools and also have the hyfrecator available. I have described the intended procedures for the patient. 2. Type 2 diabetes mellitus with morbid obesity (E11.69: Type 2 diabetes mellitus with other specified complication) They are seeing lack of any improvement in diabetes and certainly in the weight loss by using Victoza now router operator radial. Because of significant cost, they have asked that there be other options discussed which, for the cost, would be to consider changing to Mounjaro as a GLP-1 medication along with her insulin. Unfortunately, she does not tolerate metformin and her hemoglobin A1c most recently was 8.4%. will look into whether or not it is even possible by cost to change to Mounjaro and let me know if this should be prescribed. 3. Left lumbar radiculitis (M54.16: Radiculopathy, lumbar region) This is an ongoing issue, she has at least been able to see and develop plans with her pain management physician, however, there is no communication to this office so I am unable to converse with any informed way about the results of her recent MRI. It appears that further pain management interventions are planned and apparently she is not a surgical candidate which overall is a safer route for her. 4. BMI 45.0-49.9, adult (Z68.42: Body mass index [BMI] 45.0-49.9, adult) Urged healthy diet with decreased calories and increased vegetables. Encouraged increased activity and a goal of 150 minutes per week of exercise. 5. Morbid obesity, (E66.01: Morbid (severe) obesity due to excess calories)Morbid (severe) obesity due to excess calories Increases risk to sequelae of type 2 diabetes and we note that she is involved in monthly weight loss visits here. Portions of this record may have been created with voice recognition artificial intelligence software, specifically Scandid, Lala and or [employer]. Substitutions may have occurred unintentionally. Please notify the author if changes are necessary or if the meaning of any statement is unclear. ATTESTATION Documentation services were performed after patient or guardian consented to allow [employer] to record this visit. NASRIN intervention specialist and provider reviewed before signing. NASRIN: Elva Louie. Follow-up With When Contact Information FLYNN WELDON FAAFP, Shyla Genao, RAHUL Additional Instructions: return for skin lesion removal, appt next to a break please or first of pm Patient Education Blood Glucose Monitoring, Adult Problem List/Past Medical History Ongoing Anticoagulated Benign essential hypertension Bilateral leg edema BMI 45.0-49.9, adult Chronic insomnia Class 3 severe obesity due to excess calories with serious comorbidity in adult Constipation due to slow transit Diastolic dysfunction Encounter for medication monitoring Fatty liver Female stress incontinence Fibromyalgia Hyperlipidemia, mixed Inflamed seborrheic keratosis Left lumbar radiculitis Left ventricular hypertrophy Long-term insulin use Low vitamin D level Moderate recurrent major depression Morbid obesity No (more content not included)... Normal [facility] Comment on above: Result Comment: Elec tronically Signed By: Elva Martínez\.br\Date and Time Signed: 02/11/23 15:35 EDT\.br\Electronically Co-Signed By: Shyla PRUETT MD, FAAFP Other Comment: jonatan pierre Patient Educationon 02-12-20 Patient Education Endocrinology Blood Glucose Monitoring, Adult Monitoring your blood sugar (glucose) is an important part of managing your diabetes. Blood glucose monitoring involves checking your blood glucose as often as directed and keeping a log or record of your results over time. Checking your blood glucose regularly and keeping a blood glucose log can: ? Help you and your health care provider adjust your diabetes management plan as needed, including your medicines or insulin. ? Help you understand how food, exercise, illnesses, and medicines affect your blood glucose. ? Let you know what your blood glucose is at any time. You can quickly find out if you have low blood glucose (hypoglycemia) or high blood glucose (hyperglycemia). Your health care provider will set individualized treatment goals for you. Your goals will be based on your age, other medical conditions you have, and how you respond to diabetes treatment. Generally, the goal of treatment is to maintain the following blood glucose levels: ? Before meals (preprandial): 80?130 mg/dL (4.4?7.2 mmol/L). ? After meals (postprandial): below 180 mg/dL (10 mmol/L). ? A1C level: less than 7%. Supplies needed: ? Blood glucose meter. ? Test strips for your meter. Each meter has its own strips. You must use the strips that came with your meter. ? A needle to prick your finger (lancet). Do not use a lancet more than one time. ? A device that holds the lancet (lancing device). ? A journal or log book to write down your results. How to check your blood glucose Checking your blood glucose 1. Wash your hands for at least 20 seconds with soap and water. 2. Prick the side of your finger (not the tip) with the lancet. Do not use the same finger consecutively. 3. Gently rub the finger until a small drop of blood appears. 4. Follow instructions that come with your meter for inserting the test strip, applying blood to the strip, and using your blood glucose meter. 5. Write down your result and any notes in your log. Using alternative sites Some meters allow you to use areas of your body other than your finger (alternative sites) to test your blood. The most common alternative sites are the forearm, the thigh, and the palm of your hand. Alternative sites may not be as accurate as the fingers because blood flow is slower in those areas. This means that the result you get may be delayed, and it may be different from the result that you would get from your finger. Use the finger only, and do not use alternative sites, if: ? You think you have hypoglycemia. ? You sometimes do not know that your blood glucose is getting low (hypoglycemia unawareness). General tips and recommendations Blood glucose log ? Every time you check your blood glucose, write down your result. Also write down any notes about things that may be affecting your blood glucose, such as your diet and exercise for the day. This information can help you and your health care provider: ? Look for patterns in your blood glucose over time. ? Adjust your diabetes management plan as needed. ? Check if your meter allows you to download your records to a computer or if there is an seth for the meter. Most glucose meters store a record of glucose readings in the meter. If you have type 1 diabetes: ? Check your blood glucose 4 or more times a day if you are on intensive insulin therapy with multiple daily injections (MDI) or if you are using an insulin pump. Check your blood glucose: ? Before every meal and snack. ? Before bedtime. ? Also check your blood glucose: ? If you have symptoms of hypoglycemia. ? After treating low blood glucose. ? Before doing activities that create a risk for injury, like driving or using machinery. ? Before and after exercise. ? Two hours after a meal. ? Occasionally between 2:00 a.m. and 3:00 a.m., as directed. ? You may need to check your blood glucose more often, 6?10 times per day, if: ? You have diabetes that is not well controlled. ? You are ill. ? You have a history of severe hypoglycemia. ? You have hypoglycemia unawareness. If you have type 2 diabetes: ? Check your blood glucose 2 or more times a day if you take insulin or other diabetes medicines. ? Check your blood glucose 4 or more times a day if you are on intensive insulin therapy. Occasionally, you may also need to check your glucose between 2:00 a.m. and 3:00 a.m., as directed. ? Also check your blood glucose: ? Before and after exercise. ? Before doing activities that create a risk for injury, like driving or using machinery. ? You may need to check your blood glucose more often if: ? Your medicine is being adjusted. ? Your diabetes is not well controlled. ? You are ill. General tips ? Make sure you always have your supplies with you. ? After you use a few boxes of test strips, adjust (calibrate) your blood glucose meter by following in (more content not included)... [facility] Ambulatory Visit Summaryon 0 02-04-2023 Ambulatory Visit Summary NAHED PETERSON :1945 Visit Date:02/04/2023 Ambulatory Visit Instructions Your Diagnosis Weight loss counseling, encounter for Type 2 diabetes mellitus with polyneuropathy Benign essential hypertension Bilateral leg edema Class 3 severe obesity due to excess calories with serious comorbidity in adult BMI 40.0-44.9, adult Your Care Team Attending Physician - Gene MSN, 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, Yoselin Pappas Primary Care Physician - FLYNN WELDON FAAFP, Shyla Genao This Is Your Medications List Misc Prescription (glucometer test strip) Misc Prescription (pen needles) acetaminophen-hydrocod one (acetaminophen-hydroco done 325 mg-5 mg oral tablet) acetaminophen-hydrocod one (acetaminophen-hydroco done 325 mg-5 mg oral tablet) baclofen (baclofen 10 mg Tab) carvedilol (carvedilol 25 mg Tab) cetirizine (cetirizine 10 mg oral capsule) cyanocobalamin (Vitamin B12 1000 mcg Tab) diltiazem (Cardizem 60 mg Tab) docusate (Colace 100 mg Cap) doxepin (doxepin 10 mg Cap) duloxetine (duloxetine 30 mg oral delayed release capsule) ferrous gluconate (ferrous gluconate 256 mg (28 mg elemental iron) oral tablet) fluconazole (Diflucan 150 mg Tab) furosemide (furosemide 20 mg Tab) insulin glargine (Lantus Solostar Pen 100 units/mL subcutaneous solution) levothyroxine (levothyroxine 75 mcg (0.075 mg) Tab) liraglutide (Victoza 6 mg/mL subcutaneous injection) nystatin topical (nystatin Top 100,000 units/g Crm 15 gram) ramipril (ramipril 5 mg Cap) rivaroxaban (Xarelto 20 mg oral tablet) rosuvastatin (rosuvastatin 10 mg Tab) Procedures Performed Arthroscopy of shoulder with biceps tenodesis (10/07/2022), Injection (01/19/2022), Ablation (11/03/2021), Esophagogastroduodenos copy and polypectomy of duodenum (07/17/2021), Cholecystectomy (03/20/2021), Colonoscopy (06/11/2020), appendectomy, bilateral carpal tunnel elease, Bilateral cataract, Cardiac catheterization, EGD (esophagogastroduodeno scopy) gastric outlet reduction, hysterectomy, L 4-5t toes --- bones and toenails removed, L and R rotator cuff, R hand tendons, R ulna n transposition, right ankle surgery, shoulder surgery, tubes tied. Discharge Vitals Heart Rate (Peripheral) 72 Respiratory Rate 18 Blood Pressure 136/66 Height 63 in Height 160 cm Weight 259.16 lb Weight 117.8 kg BMI 46.02 What to do next Scheduled Follow-Up Appointments Tuesday 1:00 PM EDT With: Where: [facility] Invalid Interpretation Code [address] [place] [address]- \.br\ Tuesday 11:20 AM EST \.br\ With: FLYNN WELDON FAAFP, Shyla Genao\.br\ Where: [facility] Medicine Office/Clini c Noteon 02-04-2023 Family Medicine Office/Clinic Note Chief Complaint Here to discuss weight management History of Present Illness Nahed Peterson is a 77-year-old female presenting today for initial weight loss. She is accompanied by her . She met a nurses supervisor 3 to 5 years ago. In the past week, her blood glucose has ranged from 78 mg/dL to 125 mg/dL. When her blood glucose is low, she experiences symptoms. Age of onset of wt gain? 1964 with first child Highest wt ever? 259 Lowest wt? 160 Rate of wt gain (years, months)? years Stress present (marriage, , job)? severe pain What have you tried in the past to help you lose wt? weight watchers, weight loss clinic in [facility], What motivates you now? the pain, losing weight would help What is your goal weight? < 200 Family history of obesity/thyroid cancer? Unsure , mom had thyroid surgery, grandparents were overweight Nutrition Dietary recall in 24 hours? whole grain bread toasted, PB, banana, no lunch, left over libyan sausage & onions, almonds, grapenuts with milk and banana, tea, sugar free wyler's drink mix, Food quality? diet coke 1 or 2 bottles, home cook Influences of others? no Designated eating area? yes but don't use it DO you eat in front of the TV? yes Patterns defined, mealtimes, snack vs grazing? generalized evening meal time (5p-8p) Water? Yeti cup 30 oz fill 2-3 times a day Physical activity Any in the past? walked, classes Current level of activity, sedentary? sedentary Favorite past time activity? No Activities able to stick to? stretches from therapy Barriers? severe pain to hip and legs Social Smoking? no Alcohol consumption? no Illicit Drugs? no Workplace/shift? no Sexual activity? deferred Sleep #of hours? 7 Schedule? 2am-10am Interruptions? 2-3x to go to the [place] History of SYLVESTER/snoring? CPAP Daytime somnolence? due to pain medications Nocturnal eating? No Review of Systems PHQ Score Initial Depression Screen Score: 0 Negative unless stated in HPI. Physical Exam Vitals & Measurements HR: 72(Peripheral) RR: 18 BP: 136/66 SpO2: 97% HT: 63 in HT: 160 cm WT: 117.8 kg WT: 259.16 lb BMI: 46.02 General: Well nourished, well-groomed. No signs of acute distress. Head: Normocephalic. Eyes: Sclerae are clear. Cardiovascular: Heart rate and rhythm is regular and strong. Normal S1, S2. No murmurs, rubs, or bruits auscultated. Lower extremity edema noted. Respiratory: Lung sounds are clear throughout. Respirations are regular and unlabored. Abdomen: Soft and nondistended. The waist circumference is 125 cm. Musculoskeletal: Gait is slow. Integument: No rashes, lesions, or open areas noted to exposed skin. Psychiatric: Alert and oriented x3, pleasant. No mood changes. Assessment/Plan 1. Weight loss counseling, encounter for (Z71.3: Dietary counseling and surveillance) She presents today with her for weight loss management. She does have quite a few barriers: bad hip, fibromyalgia, and diabetic. She does have difficulty moving around. We thoroughly discussed and reviewed the responsibility, and the accountability of the patient. She admitted in having difficulty doing physical activity. I reviewed and discussed chair exercises and stretches that she needs to try to do including incorporating weights, whether it would be 1 pound weight or even a can vegetable. I also discussed resistant bands as well. I reviewed her nutrition. I highly encouraged her not to eat in front of the TV. I informed her that it is proven that people tend to eat more if they are eating in front of the TV. I highly encouraged her to go into the dining room. She will continue drinking plenty of water, which she does. She avoids fast food. I highly encouraged her to refrain from drinking Diet Coke. I informed her she could substitute it with sparkling water. Education package involving setting goals, weight control, portion control, as well as root causes has been given. I also encouraged her to monitor dietary intake as well. She has been to nutrition classes before. She states that her usually does the cooking. He already reiterated that he will not buy Diet Coke anymore. I encouraged her to set realistic goals each month with me. She verbalizes understanding. I inform her that this needs to be a lifestyle changes needs to be continuous. Even if she does start losing weight, she cannot stop. I reminded her that due to her comorbidities as well as her age she may lose the weight at a slower pace versus someone at a younger age. Her and her both verbalize understanding. Ordered: Chronic Care Management ? Ambulatory Referral 2. Type 2 diabetes mellitus with polyneuropathy (E11.42: Type 2 diabetes mellitus with diabetic polyneuropathy) The importance of the following were all reviewed with the patient: -Take medications as prescribed. There are simple Lifestyle Modifications that you can do to reduce your blood pressure. -Weight Reduction -Follow the DASH eati (more content not included)... Normal [facility] Comment on above: Result Comment: Elec tronically Signed By: Gene MAHONEY, BANANA ROOM CUTTER- Yoselin GARCIA\.br\Date and Time Signed: 02/04/23 21:13 EDT\.br\Electronically Co-Signed By: Bonnie Mondragon\.br\Date and Time Co-Signed: 02/04/23 17:40 EDT Patient Educationon 02-04-20 23 Patient Education Nutrition DASH Eating Plan DASH stands for Dietary Approaches to Stop Hypertension. The DASH eating plan is a healthy eating plan that has been shown to: ? Reduce high blood pressure (hypertension). ? Reduce your risk for type 2 diabetes, heart disease, and stroke. ? Help with weight loss. What are tips for following this plan? Reading food labels ? Check food labels for the amount of salt (sodium) per serving. Choose foods with less than 5 percent of the Daily Value of sodium. Generally, foods with less than 300 milligrams (mg) of sodium per serving fit into this eating plan. ? To find whole grains, look for the word whole as the first word in the ingredient list. Shopping ? Buy products labeled as low-sodium or no salt added. ? Buy fresh foods. Avoid canned foods and pre-made or frozen meals. Cooking ? Avoid adding salt when cooking. Use salt-free seasonings or herbs instead of table salt or sea salt. Check with your health care provider or pharmacist before using salt substitutes. ? Do not hartmann foods. Cook foods using healthy methods such as baking, boiling, grilling, roasting, and broiling instead. ? Cook with heart-healthy oils, such as olive, canola, avocado, soybean, or sunflower oil. Meal planning ? Eat a balanced diet that includes: ? 4 or more servings of fruits and 4 or more servings of vegetables each day. Try to fill one-half of your plate with fruits and vegetables. ? 6?8 servings of whole grains each day. ? Less than 6 oz (170 g) of lean meat, poultry, or fish each day. A 3-oz (85-g) serving of meat is about the same size as a deck of cards. One egg equals 1 oz (28 g). ? 2?3 servings of low-fat dairy each day. One serving is 1 cup (237 mL). ? 1 serving of nuts, seeds, or beans 5 times each week. ? 2?3 servings of heart-healthy fats. Healthy fats called omega-3 fatty acids are found in foods such as walnuts, flaxseeds, fortified milks, and eggs. These fats are also found in cold-water fish, such as sardines, salmon, and mackerel. ? Limit how much you eat of: ? Canned or prepackaged foods. ? Food that is high in trans fat, such as some fried foods. ? Food that is high in saturated fat, such as fatty meat. ? Desserts and other sweets, sugary drinks, and other foods with added sugar. ? Full-fat dairy products. ? Do not salt foods before eating. ? Do not eat more than 4 egg yolks a week. ? Try to eat at least 2 vegetarian meals a week. ? Eat more home-cooked food and less restaurant, buffet, and fast food. Lifestyle ? When eating at a restaurant, ask that your food be prepared with less salt or no salt, if possible. ? If you drink alcohol: ? Limit how much you use to: ? 0?1 drink a day for women who are not . ? 0?2 drinks a day for men. ? Be aware of how much alcohol is in your drink. In the [place] one drink equals one 12 oz bottle of beer (355 mL), one 5 oz glass of wine (148 mL), or one 1? oz glass of hard liquor (44 mL). General information ? Avoid eating more than 2,300 mg of salt a day. If you have hypertension, you may need to reduce your sodium intake to 1,500 mg a day. ? Work with your health care provider to maintain a healthy body weight or to lose weight. Ask what an ideal weight is for you. ? Get at least 30 minutes of exercise that causes your heart to beat faster (aerobic exercise) most days of the week. Activities may include walking, swimming, or biking. ? Work with your health care provider or dietitian to adjust your eating plan to your individual calorie needs. What foods should I eat? Fruits All fresh, dried, or frozen fruit. Canned fruit in natural juice (without added sugar). Vegetables Fresh or frozen vegetables (raw, steamed, roasted, or grilled). Low-sodium or reduced-sodium tomato and vegetable juice. Low-sodium or reduced-sodium tomato sauce and tomato paste. Low-sodium or reduced-sodium canned vegetables. Grains Whole-grain or whole-wheat bread. Whole-grain or whole-wheat pasta. Brown rice. Oatmeal. Quinoa. Bulgur. Whole-grain and low-sodium cereals. Meg bread. Low-fat, low-sodium crackers. Whole-wheat flour tortillas. Meats and other proteins Skinless chicken or turkey. Ground chicken or turkey. Pork with fat trimmed off. Fish and seafood. Egg whites. Dried beans, peas, or lentils. Unsalted nuts, nut butters, and seeds. Unsalted canned beans. Lean cuts of beef with fat trimmed off. Low-sodium, lean precooked or cured meat, such as sausages or meat loaves. Dairy Low-fat (1%) or fat-free (skim) milk. Reduced-fat, low-fat, or fat-free cheeses. Nonfat, low-sodium ricotta or cottage cheese. Low-fat or nonfat yogurt. Low-fat, low-sodium cheese. Fats and oils Soft margarine without trans fats. Vegetable oil. Reduced-fat, low-fat, or light mayonnaise and salad dressings (reduced-sodium). Canola, safflower, olive, avocado, soybean, and sunflower oils. Avocado. Seasonings and condiments Herbs. Spices. Seasoni (more content not included)... Normal [facility] Plan of Care - PT/OT/Speecho n 01-21-2023 Plan of Care - PT/OT/Speech [id number] 0CD:127 Normal [facility] RAD - MISCon 01-20-2023 RAD - MISC [id number] 0CD:127 Normal [facility] XR LUMBAR SPINE (MIN 4 VIEWS )on 01-18-2023 XR LUMBAR SPINE (MIN 4 VIEWS) EXAM: XR LUMBAR SPINE (MIN 4 VIEWS) HISTORY: Lumbar radiculopathy COMPARISON: None. IMPRESSION: FINDINGS/IMPRESSION: 1. Minimal 7 degree convex left thoracolumbar curve T12 through L5. 2. No fracture or suspicious/worrisome findings. 3. Moderately advanced diffuse disc and facet degenerative changes mainly from L3-L4 inferiorly. Interpreted by: Mykel Huizar Jr., MD Signed by: Mykel Huizar Jr., MD 01/18/23 Final result Normal [facility] Family Medicine Office/Clini c Noteon 01-12-2023 Family Medicine Office/Clinic Note Chief Complaint Pt here for left leg pain, from buttocks to back of knee started 3 weeks ago after rolling off couch and onto floor, trouble getting up. with room 4 History of Present Illness Nahed is accompanied by her , Gordon. She complains of continued severe pain in her posterior left leg and buttock and for which she was seen in this office last week with note reviewed. She was taking the prescribed steroids the second day and she felt a little bit better, but then as she completed the taper, the pain came back with a vengeance. She has not discussed this problem with pain management, she feels this would only result in her getting get another steroid injection. She would like to know what is causing this pain which does not feel like sciatica she has chronically on the right. It feels like severe muscle spasm she used to get those in her calves and she could stand up and put all of her weight on it and it would go away. This does not go away and sometimes is so bad that it takes her breath away. Pain onset after she got off the couch 3 weeks ago by moving to the floor and could not get to her feet without her 's help. She is not sure if she pulled something, she has not had a fall since she broke her left foot 3 months ago. She can not lay down, sit back in a chair, or walk without pain. The pain radiates from the back of the knee to the deep left buttock. She did not see rash or bruise over this area of pain. Physical therapy assessment is tomorrow. She denies any tingling or numbness in the back of her left leg. Her left foot was numb when she got up to go to the bathroom. Her left foot is not right after treatment for the fracture by podiatry. She has a limited number of Percocet remaining after shoulder surgery and also has ongoing prescription of [place] per pain management which she is using mainly now for this left lower extremity and buttock pain. Review of Systems PHQ Score Initial Depression Screen Score: 3 Review of systems is as per above in HPI. Physical Exam Vitals & Measurements T: 36.4 ?C(Temporal Artery) HR: 76(Peripheral) RR: 16 BP: 136/48 SpO2: 95% HT: 63 in HT: 160 cm WT: 114 kg WT: 250.8 lb BMI: 44.53 General: Patient is overweight, no acute distress. Musculoskeletal: The patient is seated in the exam room with weight shifted towards the right upper leg and ischium. She also prefers to sit on the edge of the chair so that her left hip and knee can be extended slightly from 90 degrees. We observed her walking and she uses her right hand for assist from her and she expresses much discomfort, her stride is shortened and antalgic favoring left lower extremity. Palpation of the left posterior knee is without cyst or tenderness, she reports pain of the hamstring areas, I am unable to provoke any pain during palpation, I do not palpate muscle spasm in this area or the deep left gluteal area. Her hip range of motion on the left with internal and external rotation demonstrated is without provoking pain. Assessment/Plan 1. Left lumbar radiculitis (M54.16: Radiculopathy, lumbar region) She had minimal relief from highest dose of her oral steroid taper as treated last week, she is reluctant to take steroids on any routine basis due to diabetes and I concur. She is also not to take NSAIDs because of atrial fibrillation and anticoagulation. At this point, she is using narcotics and acetaminophen per this medication list. Interestingly, she has not contacted pain management and we have urged her to be open to this as we work-up further with plain x-ray of the lumbar spine, I have no other indication of trauma thus no other focus of imaging at this time. Her physical therapy appointment is tomorrow and I have strongly indicated to her that she be seen if at all possible so that modalities can be used. Ordered: XR Spine Lumbosacral Minimum 4 Views 2. BMI 40.0-44.9, adult (Z68.41: Body mass index [BMI] 40.0-44.9, adult) Urged healthy diet with decreased calories and increased vegetables. Encouraged increased activity and a goal of 150min per week of exercise. Ordered: Body Mass Index (BMI) documented 3008F Current tobacco non-user 1036F Depression Screening Negative 3352F Fall Risk Screen 2 or more w/injury 1100F HBA1C 8.0 to <9.0 Most Recent Level 3052F Influenza immunization status assessed 1030F Most recent diastolic blood pressure <80 mm Hg 3078F Pneumococcus immunization status assessed 1022F 3. Morbid obesity (E66.01: Morbid (severe) obesity due to excess calories) Increases risk to sequelae of type 2 diabetes. Portions of this record may have been created with voice recognition artificial intelligence software, specifically Scandid, Lala and or [employer]. Substitutions may have occurred due to the inherent limitations of voice recognition and artificial intelligence software. ATTESTATION: Documentation services were performed after patient or aung (more content not included)... Normal [facility] Comment on above: Result Comment: Elec tronically Signed By: Shyla PRUETT MD, FAAFP\.br\Date and Time Signed: 01/12/23 21:00 EDT\.br\Electronically Co-Signed By: Elva Martínez\.br\Date and Time Co-Signed: 01/12/23 16:11 EDT Patient Educationon 01-13-20 Patient Education Orthopedics Back Exercises These exercises help to make your trunk and back strong. They also help to keep the lower back flexible. Doing these exercises can help to prevent or lessen pain in your lower back. ? If you have back pain, try to do these exercises 2?3 times each day or as told by your doctor. ? As you get better, do the exercises once each day. Repeat the exercises more often as told by your doctor. ? To stop back pain from coming back, do the exercises once each day, or as told by your doctor. Do exercises exactly as told by your doctor. Stop right away if you feel sudden pain or your pain gets worse. Exercises Single knee to chest Do these steps 3?5 times in a row for each le. Lie on your back on a firm bed or the floor with your legs stretched out. 2. Bring one knee to your chest. 3. Grab your knee or thigh with both hands and hold it in place. 4. Pull on your knee until you feel a gentle stretch in your lower back or butt. 5. Keep doing the stretch for 10?30 seconds. 6. Slowly let go of your leg and straighten it. Pelvic tilt Do these steps 5?10 times in a row: 1. Lie on your back on a firm bed or the floor with your legs stretched out. 2. Bend your knees so they point up to the ceiling. Your feet should be flat on the floor. 3. Tighten your lower belly (abdomen) muscles to press your lower back against the floor. This will make your tailbone point up to the ceiling instead of pointing down to your feet or the floor. 4. Stay in this position for 5?10 seconds while you gently tighten your muscles and breathe evenly. Cat?cow Do these steps until your lower back bends more easily: 1. Get on your hands and knees on a firm bed or the floor. Keep your hands under your shoulders, and keep your knees under your hips. You may put padding under your knees. 2. Let your head hang down toward your chest. Tighten (contract) the muscles in your belly. Point your tailbone toward the floor so your lower back becomes rounded like the back of a cat. 3. Stay in this position for 5 seconds. 4. Slowly lift your head. Let the muscles of your belly relax. Point your tailbone up toward the ceiling so your back forms a sagging arch like the back of a cow. 5. Stay in this position for 5 seconds. Press-ups Do these steps 5?10 times in a row: 1. Lie on your belly (face-down) on a firm bed or the floor. 2. Place your hands near your head, about shoulder-width apart. 3. While you keep your back relaxed and keep your hips on the floor, slowly straighten your arms to raise the top half of your body and lift your shoulders. Do not use your back muscles. You may change where you place your hands to make yourself more comfortable. 4. Stay in this position for 5 seconds. Keep your back relaxed. 5. Slowly return to lying flat on the floor. Bridges Do these steps 10 times in a row: 1. Lie on your back on a firm bed or the floor. 2. Bend your knees so they point up to the ceiling. Your feet should be flat on the floor. Your arms should be flat at your sides, next to your body. 3. Tighten your butt muscles and lift your butt off the floor until your waist is almost as high as your knees. If you do not feel the muscles working in your butt and the back of your thighs, slide your feet 1?2 inches (2.5?5 cm) farther away from your butt. 4. Stay in this position for 3?5 seconds. 5. Slowly lower your butt to the floor, and let your butt muscles relax. If this exercise is too easy, try doing it with your arms crossed over your chest. Belly crunches Do these steps 5?10 times in a row: 1. Lie on your back on a firm bed or the floor with your legs stretched out. 2. Bend your knees so they point up to the ceiling. Your feet should be flat on the floor. 3. Cross your arms over your chest. 4. Tip your chin a little bit toward your chest, but do not bend your neck. 5. Tighten your belly muscles and slowly raise your chest just enough to lift your shoulder blades a tiny bit off the floor. Avoid raising your body higher than that because it can put too much stress on your lower back. 6. Slowly lower your chest and your head to the floor. Back lifts Do these steps 5?10 times in a row: 1. Lie on your belly (face-down) with your arms at your sides, and rest your forehead on the floor. 2. Tighten the muscles in your legs and your butt. 3. Slowly lift your chest off the floor while you keep your hips on the floor. Keep the back of your head in line with the curve in your back. Look at the floor while you do this. 4. Stay in this position for 3?5 seconds. 5. Slowly lower your chest and your face to the floor. Contact a doctor if: ? Your back pain gets a lot worse when you do an exercise. ? Your back pain does not get better within 2 hours after you exercise. If you have any of these problems, stop doing the exercise (more content not included)... Normal [facility] Family Medicine Office/Clini c Noteon 01-04-2023 Family Medicine Office/Clinic Note Chief Complaint pt having severe pain in bilat le x1 week and half. pt sees pain clinic for R sciatica. pt co R lump on hip aching, L hip searing pain down to knee. pt takes 2 [place] BID History of Present Illness The patient is a 78-year-old female who presents to the office for concerns of severe left hip and thigh pain along with right hip pain. She is currently established with pain management in [place] and currently established with Dr. Shyla Pruett here in office. She was recently seen on 12/20/2022 for follow-up and has discontinued her rosuvastatin 10 mg due to concern for worsening myalgias. Patient has multiple allergies to pain medications. She is currently taking [place] 325 every 4 to 6 hours as needed. The patient is accompanied by an adult male. The patient had onset of left hip pain about 1.5 weeks ago. She has not had a fall since 11/05/2022 and reports fracturing her left foot and fell on her left shoulder replacement; she is healing well. She has limited range of motion in the shoulder but is doing home exercises. Her last appointment with pain management was on 12/16/2022 and she does not have a follow-up scheduled. At that appointment, she was having mild right hip pain and was informed it was likely due to favoring her fractured foot. The pain management advised an ablation, but the patient declined as she wanted to heal from her other concerns. Currently, she is experiencing right-sided aching pain radiating from her knee to her ankle. She also notes constant pain down the middle of her buttocks to the posterior of her knee resembling a Charley horse. The patient has a constant searing tearing pain on her left side which worsens throughout the day. Yesterday, when trying to take a nap, she was unable to lay down. She has difficulty sitting back in a chair due to the pain. She reports a bruise which was noticed 2 days ago and denies hitting her hip. She has been applying Ronen's and Voltaren on her left side as well as heat and lidocaine patches to the middle of her thigh yesterday, without relief. Her right side is not painful at the top. The adult male has attempted to rub the patient's affected right side, but it is painful to the touch. She denies redness on her lower extremities. The patient denies that her lower extremity is typically swollen. She notes decreased sensitivity to touch to her right lower extremity. The patient experienced abdominal cramps and nausea a couple of times in the last 1.5 weeks. She inquires if her Lasix was depleting her potassium level. She denies having a history of low potassium. She began taking Lasix daily 10/30/2022, 1 week before her fall prescribed by Dr. Yates. Her potassium level at that time was normal. The patient has not taken potassium replacement supplementations. She denies chest pain or palpitations. The patient also experiences imbalance concerns. She notes with ambulation, she feels her knees and hips give out. She has been able to catch herself. She has not had physical therapy in quite a while due to the high copay each session. The adult male reports when she exercises, she has increased pain. She has difficulty getting in a car. At the time of shoulder arthroplasty, she was prescribed Celebrex. She admits she did not take it as she read people with atrial fibrillation should not take it. The patient is on blood thinners. Patient has no other questions or concerns at this time. Review of Systems PHQ Score Initial Depression Screen Score: 0 Negative unless stated in HPI. Physical Exam Vitals & Measurements HR: 73(Peripheral) RR: 18 BP: 138/70 SpO2: 94% HT: 63 in HT: 160 cm WT: 115.9 kg WT: 254.98 lb BMI: 45.27 General: Morbidly obese female, well hydrated, no acute distress. Eyes: EOMI, conjunctiva and sclera clear. Ears: no deformity or lesion to external ear. Hearing grossly normal and conversational to speech. Nose: no deformity, discharge, inflammation, or lesions. Mouth: Mucous membranes moist. Neck: supple. Trachea is midline. Lungs: normal respiratory effort and clear to auscultation. Cardio: Regular rate and rhythm with no murmur or rub. Musculoskeletal: no deformity or scoliosis noted. No erythema or ecchymosis. Extremities: significant bilateral 2+ pitting edema of lower extremities. Decreased range of motion due to swelling bilaterally. Tenderness to palpation of skin on right lower extremity. Neurologic: grossly normal skin. Ecchymosis present over right hip approximately 4 cm x 3 cm central clearing occurring. Nontender to palpation. No other ulcerations or suspicious lesions on exposed skin. Mental Status: alert and oriented x3. Normal mood and affect. Assessment/Plan 1. Fibromyalgia (M79.7: Fibromyalgia) Prednisone taper prescribed for patient and sent to local pharmacy. Advised can also cause increase in blood sugars and to contact the office if blood sugars become elevated with symptoms such as lightheaded, dizziness, chest pain, palpitations, sweat (more content not included)... Normal [facility] Comment on above: Result Comment: Elec tronically Signed By: Blanka Contreras PA-C\.br\Date and Time Signed: 01/03/23 23:55 EDT\.br\Electronically Co-Signed By: Susie Parker\.br\Date and Time Co-Signed: 01/03/23 15:15 EDT Physician Referralon 023 Physician Referral [id number] 0CD:127 Normal [facility] Ambulatory Visit Summaryon 0 01-03-2023 Ambulatory Visit Summary NAHED PETERSON :1945 Visit Date:01/03/2023 Ambulatory Visit Instructions Your Diagnosis Fibromyalgia Bilateral leg edema Lumbar back pain with radiculopathy affecting lower extremity BMI 40.0-44.9, adult Morbid obesity Your Care Team Attending Physician - Blanka Contreras PA-C Primary Care Physician - FLYNN WELDON FAAFP, Shyla Genao This Is Your Medications List [facility] Prescription (glucometer test strip) [facility] Prescription (pen needles) acetaminophen-hydrocod one (acetaminophen-hydroco done 325 mg-5 mg oral tablet) baclofen (baclofen 10 mg Tab) carvedilol (carvedilol 25 mg Tab) cetirizine (cetirizine 10 mg oral capsule) cyanocobalamin (Vitamin B12 1000 mcg Tab) diltiazem (Cardizem 60 mg Tab) docusate (Colace 100 mg Cap) doxepin (doxepin 10 mg Cap) duloxetine (Cymbalta 30 mg Cap-EC) ferrous gluconate (ferrous gluconate 256 mg (28 mg elemental iron) oral tablet) fluconazole (Diflucan 150 mg Tab) furosemide (furosemide 20 mg Tab) insulin glargine (Lantus Solostar Pen 100 units/mL subcutaneous solution) levothyroxine (levothyroxine 75 mcg (0.075 mg) Tab) liraglutide (Victoza 6 mg/mL subcutaneous injection) nystatin topical (nystatin Top 100,000 units/g Crm 15 gram) ramipril (ramipril 5 mg Cap) rivaroxaban (Xarelto 20 mg oral tablet) rosuvastatin (rosuvastatin 10 mg Tab) Procedures Performed Arthroscopy of shoulder with biceps tenodesis (10/07/2022), Injection (01/19/2022), Ablation (11/03/2021), Esophagogastroduodenos copy and polypectomy of duodenum (07/17/2021), Cholecystectomy (03/20/2021), Colonoscopy (06/11/2020), appendectomy, bilateral carpal tunnel elease, Bilateral cataract, Cardiac catheterization, EGD (esophagogastroduodeno scopy) gastric outlet reduction, hysterectomy, L 4-5t toes --- bones and toenails removed, L and R rotator cuff, R hand tendons, R ulna n transposition, right ankle surgery, shoulder surgery, tubes tied. Discharge Vitals Heart Rate (Peripheral) 73 Respiratory Rate 18 Blood Pressure 138/70 Height 160 cm Height 63 in What to do next Scheduled Follow-Up Appointments Tuesday 3:00 PM EDT With: Gene MSN, 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, Yoselin Pappas Where: [facility] Invalid Interpretation Code [address] [place] [id number] \.br\ Tuesday 11:20 AM EST \.br\ With: FLYNN WELDON FAAFP, Shyla Genao\.br\ Where: [facility] CHEMISTRYOrdered By: SYSTEM SYSTEM on 01-03-2023 Albumin [Mass/Vol] 4.0 g/dL Normal 3.3 - 5.0 gm/dL [facility] Remisol Albumin/Globulin [Mass ratio] 1.1 {ratio} Normal 1.1 - 2.2 [facility] Remisol ALP [Catalytic activity/Vol] 146 [iU]/d High 21 - 98 Int._Unit/L [facility] Remisol ALT No additional P-5'-P [Catalytic activity/Vol] 63 [iU]/d High 6 - 46 Int._Unit/L [facility] Remisol Anion gap [Moles/Vol] 13 mmol/L Normal 6 - 16 mEq/L [facility] Remisol AST [Catalytic activity/Vol] 31 [iU]/d Normal 5 - 43 Int._Unit/L [facility] Bilirubin [Mass/Vol] mg/dL Normal 0.0 - 1.1 mg/dL [facility] Calcium [Mass/Vol] 9.7 mg/dL Normal 8.9 - 11. 1 mg/dL [facility] Chloride [Moles/Vol] 102 mmol/L Normal 101 - 1 11 mmol/L [facility] CO2 [Moles/Vol] 30 mmol/L Normal 21 - 31 mmol/L [facility] Creatinine [Mass/Vol] 0.7 mg/dL Normal 0.5 - 1.3 mg/dL [facility] GFR/1.73 sq M.predicted among non-blacks MDRD (S/P/Bld) [Vol rate/Area] 90 mL/min/1.73 m2 Normal >=59mL/min/1.73 m2 [facility] Chem S Globulin (S) [Mass/Vol] 3.5 g/dL Normal 1.4 - 4.0 gm/dL [facility] Glucose [Mass/Vol] 112 mg/dL Normal 55 - 199 mg/dL [facility] Remisol Potassium [Moles/Vol] 4.5 mmol/L Normal 3.5 - 5.3 mmol/L [facility] Protein [Mass/Vol] 7.5 g/dL Normal 6.0 - 7.8 gm/dL [facility] Remisol Sodium [Moles/Vol] 140 mmol/L Normal 135 - 145 mmol/L [facility] Urea nitrogen [Mass/Vol] 19 mg/dL Normal 5 - 21 mg/dL [facility] Remisol Urea nitrogen/Creatinine [Mass ratio] 27 mg/mg High 10 - 20 [facility] CMPon 01-03-2023 Albumin [Mass/Vol] 4.0 g/dL Normal 3.3-5.0 [facility] Comment on above: Performed By: #### 1 [id number] #### [facility] [address] [place] [address] Albumin/Globulin (S) [Mass conc ratio] 1.1 Normal 1.1-2.2 [facility] Comment on above: Performed By: #### 1 [id number], [id number] #### [facility] [address] [place] [address] ALP [Catalytic activity/Vol] 146 Int._Unit/L High 21-98 [facility] Comment on above: Performed By: #### 1 [id number] #### [facility] [address] [place] [address] ALT No additional P-5'-P [Catalytic activity/Vol] 63 Int._Unit/L High 6-46 [facility] Comment on above: Performed By: #### 1 [id number] #### [facility] [address] [place] [address] Anion gap [Moles/Vol] 13 mmol/L Normal 6-16 [facility] Comment on above: Performed By: #### 1 [id number] #### [facility] [address] [place] [address] AST [Catalytic activity/Vol] 31 Int._Unit/L Normal 5-43 [facility] Comment on above: Performed By: #### 1 [id number], [id number] #### [facility] [address] [place] [address] Calcium [Mass/Vol] 9.7 mg/dL Normal 8.9-11.1 [facility] Comment on above: Performed By: #### 1 [id number], [id number] #### [facility] [address] [place] [address] Chloride [Moles/Vol] 102 mmol/L Normal 101-111 [facility] Comment on above: Performed By: #### 1 [id number], [id number] #### [facility] [address] [place] [address] CO2 [Moles/Vol] 30 mmol/L Normal 21-31 [facility] Comment on above: Performed By: #### 1 [id number], [id number] #### [facility] [address] [place] [address] Creatinine [Mass/Vol] 0.7 mg/dL Normal 0.5-1.3 [facility] Comment on above: Performed By: #### 1 [id number], [id number] #### [facility] [address] [place] [address] Globulin (S) [Mass/Vol] 3.5 g/dL Normal 1.4-4.0 [facility] Comment on above: Performed By: #### 1 [id number], [id number] #### [facility] [address] [place] [address] Glucose [Mass/Vol] 112 mg/dL Normal 55-199 [facility] Comment on above: Result Comment: If t his glucose result represents a fasting glucose, interpretation should refer to the following reference range: 55-99 mg/dL Performed By: #### 1 [id number], [id number] #### [facility] [address] [place] [address] Potassium [Moles/Vol] 4.5 mmol/L Normal 3.5-5.3 [facility] Comment on above: Performed By: #### 1 [id number], [id number] #### [facility] [address] [place] [address] Protein [Mass/Vol] 7.5 g/dL Normal 6.0-7.8 [facility] Comment on above: Performed By: #### 1 [id number], [id number] #### [facility] [address] [place] [address] Sodium [Moles/Vol] 140 mmol/L Normal 135-145 [facility] Comment on above: Performed By: #### 1 [id number], [id number] #### [facility] [address] [place] [address] Urea nitrogen [Mass/Vol] 19 mg/dL Normal 5-21 [facility] Comment on above: Performed By: #### 1 [id number] #### [facility] [address] [place] [address] Urea nitrogen/Creatinine [Mass ratio] 27 No Units High 10-20 [facility] Comment on above: Performed By: #### 1 [id number] #### [facility] [address] [place] [address] Bilirubin [Mass/Vol] mg/dL Normal 0.0-1.1 Myles quintero [facility] Comment on above: Performed By: #### 1 [id number] #### Yousif [facility] [address] [place] [address] Patient Educationon 01-04-20 Patient Education Nephrology Peripheral Edema Peripheral edema is swelling that is caused by a buildup of fluid. Peripheral edema most often affects the lower legs, ankles, and feet. It can also develop in the arms, hands, and face. The area of the body that has peripheral edema will look swollen. It may also feel heavy or warm. Your clothes may start to feel tight. Pressing on the area may make a temporary dent in your skin (pitting edema). You may not be able to move your swollen arm or leg as much as usual. There are many causes of peripheral edema. It can happen because of a complication of other conditions such as heart failure, kidney disease, or a problem with your circulation. It also can be a side effect of certain medicines or happen because of an infection. It often happens to women during . Sometimes, the cause is not known. Follow these instructions at home: Managing pain, stiffness, and swelling ? Raise (elevate) your legs while you are sitting or lying down. ? Move around often to prevent stiffness and to reduce swelling. ? Do not sit or stand for long periods of time. ? Do not wear tight clothing. Do not wear garters on your upper legs. ? Exercise your legs to get your circulation going. This helps to move the fluid back into your blood vessels, and it may help the swelling go down. ? Wear compression stockings as told by your health care provider. These stockings help to prevent blood clots and reduce swelling in your legs. It is important that these are the correct size. These stockings should be prescribed by your doctor to prevent possible injuries. ? If elastic bandages or wraps are recommended, use them as told by your health care provider. Medicines ? Take vine-ygo-yuulaid and prescription medicines only as told by your health care provider. ? Your health care provider may prescribe medicine to help your body get rid of excess water (diuretic). Take this medicine if you are told to take it. General instructions ? Eat a low-salt (low-sodium) diet as told by your health care provider. Sometimes, eating less salt may reduce swelling. ? Pay attention to any changes in your symptoms. ? Moisturize your skin daily to help prevent skin from cracking and draining. ? Keep all follow-up visits. This is important. Contact a health care provider if: ? You have a fever. ? You have swelling in only one leg. ? You have increased swelling, redness, or pain in one or both of your legs. ? You have drainage or sores at the area where you have edema. Get help right away if: ? You have edema that starts suddenly or is getting worse, especially if you are or have a medical condition. ? You develop shortness of breath, especially when you are lying down. ? You have pain in your chest or abdomen. ? You feel weak. ? You feel like you will faint. These symptoms may be an emergency. Get help right away. Call 911. ? Do not wait to see if the symptoms will go away. ? Do not drive yourself to the hospital. Summary ? Peripheral edema is swelling that is caused by a buildup of fluid. Peripheral edema most often affects the lower legs, ankles, and feet. ? Move around often to prevent stiffness and to reduce swelling. Do not sit or stand for long periods of time. ? Pay attention to any changes in your symptoms. ? Contact a health care provider if you have edema that starts suddenly or is getting worse, especially if you are or have a medical condition. ? Get help right away if you develop shortness of breath, especially when lying down. This information is not intended to replace advice given to you by your health care provider. Make sure you discuss any questions you have with your health care provider. Document Revised: 03/22/2022 Document Reviewed: 03/22/2022 [employer] Patient Education ? 2022 [employer] Nutrition Budget-Friendly Healthy Eating There are many ways to save money at the grocery store and continue to eat healthy. You can be successful if you: ? Plan meals according to your budget. ? Make a grocery list and only purchase food according to your grocery list. ? Prepare food yourself at home. What are tips for following this plan? Reading food labels ? Compare food labels between brand name foods and the store brand. Often the nutritional value is the same, but the store brand is lower cost. ? Look for products that do not have added sugar, fat, or salt (sodium). These often cost the same but are healthier for you. Products may be labeled as: ? Sugar-free. ? Nonfat. ? Low-fat. ? Sodium-free. ? Low-sodium. ? Look for lean ground beef labeled as at least 92% lean and 8% fat. Shopping ? Buy only the items on your grocery list and go only to the areas of the store that have the items on your list. ? Use coupons only for foods and brands you normally buy. Avoid buying (more content not included)... Normal [facility] eGFRon 01-03-2023 GFR/1.73 sq M.predicted among non-blacks MDRD (S/P/Bld) [Vol rate/Area] 90 mL/min/1.73 m2 Normal >=59 [facility] Comment on above: Order Comment: Order added by Discern Expert. Result Comment: Family Assessment Worker josse kidney disease could be indicated at eGFR's of less than 60 mL/min/1.73m2. Kidney failure is indicated at less than 15 mL/min/1.73m2. 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 Long-term insulin use Hyperlipidemia, mixed Moderate recurrent major depression Paroxysmal A-fib Other specified hypothyroidism Obstructive sleep apnea syndrome, moderate BMI 40.0-44.9, adult Morbid obesity Your Care Team Attending Physician - Shyla PRUETT MD, FAAFP Primary Care Physician - Shyla PRUETT MD, FAAFP This Is Your Medications List insulin glargine (Lantus Solostar Pen 100 units/mL subcutaneous solution) Contact prescribing physician if questions or concerns Misc Prescription (glucometer test strip) Misc Prescription (pen needles) acetaminophen-hydrocod one (acetaminophen-hydroco done 325 mg-5 mg oral tablet) baclofen (baclofen 10 mg Tab) carvedilol (carvedilol 25 mg Tab) cetirizine (cetirizine 10 mg oral capsule) cyanocobalamin (Vitamin B12 1000 mcg Tab) diltiazem (Cardizem 60 mg Tab) docusate (Colace 100 mg Cap) doxepin (doxepin 10 mg Cap) duloxetine (Cymbalta 30 mg Cap-EC) ferrous gluconate (ferrous gluconate 256 mg (28 mg elemental iron) oral tablet) fluconazole (Diflucan 150 mg Tab) furosemide (furosemide 20 mg Tab) levothyroxine (levothyroxine 75 mcg (0.075 mg) Tab) liraglutide (Victoza 6 mg/mL subcutaneous injection) nystatin topical (nystatin Top 100,000 units/g Crm 15 gram) ramipril (ramipril 5 mg Cap) rivaroxaban (Xarelto 20 mg oral tablet) rosuvastatin (rosuvastatin 10 mg Tab) [Image Removed: STOP]Stop taking these medications celecoxib (CeleBREX 100 mg Cap) Procedures Performed Arthroscopy of shoulder with biceps tenodesis (10/07/2022), Injection (01/19/2022), Ablation (11/03/2021), Esophagogastroduodenos copy and polypectomy of duodenum (07/17/2021), Cholecystectomy (03/20/2021), Colonoscopy (06/11/2020), appendectomy, bilateral carpal tunnel elease, Bilateral cataract, Cardiac catheterization, EGD (esophagogastroduodeno scopy) gastric outlet reduction, hysterectomy, L 4-5t toes --- bones and toenails removed, L and R rotator cuff, R hand tendons, R ulna n transposition, right ankle surgery, shoulder surgery, tubes tied. Discharge Vitals Temperature (Oral) 37 ?C Heart Rate (Peripheral) 76 Blood Pressure 118/60 Height 160 cm Height 63 in Weight 112.3 kg Weight 247.06 lb BMI 43.87 What to do next Scheduled Follow-Up Appointments Tuesday 1:00 PM EDT With: Where: [address] [id number]- \.br\ You Need to Schedule the Following Appointments\.b r\ Follow Up with FLYNN WELDON FAAFP, RAHUL Prince When: \.br\ Comments:\.br\ schedule AWV, see MD rangelo\.br\ Where:\.br\ Medications\.br \ What How Much When Why Instructions\.b r\ Changed insulin glargine (Lantus Solostar Pen 100 units/ mL subcutaneous solution) 30 Units Subcutaneous 2 times a day\.br\ Unchanged acetaminophen-h ydrocodone (acetaminophen- hydrocodone 325 mg-5 mg oral tablet) See instructions 1 tab(s) every 4-6 hours as needed for pain for 7 days Contact prescribing physician if questions or concerns \.br\ Unchanged baclofen (baclofen 10 mg Tab) 1 Tablets By Mouth 3 times a day as needed for Muscle pain Contact prescribing physician if questions or concerns \.br\ Unchanged carvedilol (carvedilol 25 mg Tab) 0.5 Tablets By Mouth 2 times a day Contact prescribing physician if questions or concerns \.br\ Unchanged cetirizine (cetirizine 10 mg oral capsule) 1 Capsules By Mouth Every day as needed for for allergy symptoms Contact prescribing physician if questions or concerns \.br\ Unchanged cyanocobalamin (Vitamin B12 1000 mcg Tab) 1 Tablets By Mouth Every day Contact prescribing physician if questions or concerns \.br\ Unchanged diltiazem (Cardizem 60 mg Tab) 1 Tablets By Mouth 3 times a day Contact prescribing physician if questions or concerns \.br\ Unchanged docusate (Colace 100 mg Cap) 1 Capsules By Mouth 2 times a day as needed for for constipation Contact prescribing physician if questions or concerns \.br\ Unchanged doxepin (doxepin 10 mg Cap) 1 Capsules By Mouth Once a day (at bedtime) Contact prescribing physician if questions or concerns \.br\ Unchanged duloxetine (Cymbalta 30 mg Cap-EC) 1 Capsules By Mouth Every day Contact prescribing physician if questions or concerns \.br\ Unchanged ferrous gluconate (ferrous gluconate 256 mg (28 mg elemental iron) oral tablet) 1 Tablets By Mouth Every day Contact prescribing physician if questions or concerns \.br\ Unchanged fluconazole (Diflucan 150 mg Tab) 1 Tablets By Mouth Once repeat after 3 days x1 if not improving Contact prescribing physician if questions or concerns \.br\ Unchanged furosemide (furosemide 20 mg Tab) 1 Tablets By Mouth Every day Contact prescribing physician if questions or concerns \.br\ Unchanged levothyroxine (levothyroxine 75 mcg (0.075 mg) Tab) 1 Tablets By Mouth Every day Contact prescribing physician if questions or concerns \.br\ Unchanged liraglutide (Victoza 6 mg/ mL subcutaneous injection) 2.4 Milligram Subcutaneous Every day 90 day supply Contact prescribing physician if questions or concerns \.br\ Unchanged Misc Prescription (glucometer test strip) See instructions Long-term insulin use Type 2 diabetes mellitus with diabetic autonomic (poly)neuropath y test QID Contact prescribing physician if questions or concerns \.br\ Unchanged Misc Prescription (pen needles) See instructions Type 2 diabetes mellitus with diabetic autonomic (poly)neuropath y Long-term insulin use 31G, 3/ 16 , 5mm. use daily with insulin Contact prescribing physician if questions or concerns \.br\ Unchanged nystatin topical (nystatin Top 100,000 units/ g Crm 15 gram) 1 Application Topical 2 times a day Contact prescribing physician if questions or concerns \.br\ Unchanged ramipril (ramipril 5 mg Cap) 1 Capsules By Mouth Every day Contact prescribing physician if questions or concerns \.br\ Unchanged rivaroxaban (Xarelto 20 mg oral tablet) 1 Tablets By Mouth Every day Contact prescribing physician if questions or concerns \.br\ Unchanged rosuvastatin (rosuvastatin 10 mg Tab) 0.5 tab By Mouth Every day Contact prescribing physician if questions or concerns \.br\ \.br\ What How Much When Comments\.br\ Stop Taking celecoxib (CeleBREX 100 mg Cap) 1 Capsules By Mouth Every day as needed for for pain\.br\ Allergies\.br\ Fosamax (Joint pain)\.br\ Percocet (Nausea, Hallucinations) \.br\ Tobradex (Blisters, Orbital edema)\.br\ Zocor (aching 4 statins tried)\.br\ metFORMIN (diarrhea)\.br\ traMADol (Abdominal pain)\.br\ oxybutynin (Blisters, Orbital edema)\.br\ AmLODIPine Besylate (hypotension)\. br\ Augmentin (Nausea)\.br\ Neosporin ophthalmic ointment (Rash)\.br\ Tape (adhesive, Rash)\.br\ amoxicillin (Allergic skin rash)\.br\ Problems\.br\ Ongoing - Any problem that you are currently receiving treatment for.\.br\ Abnormality of gait\.br\ Anticoagulated\ .br\ Arthritis of left knee\.br\ Bilateral leg edema\.br\ BMI 40.0-44.9, adult\.br\ Chronic insomnia\.br\ Constipation due to slow transit\.br\ Diastolic dysfunction\.br \ Encounter for medication monitoring\.br\ Fatty liver\.br\ Female stress incontinence\.b r\ Fibromyalgia\.b r\ Hyperlipidemia, mixed\.br\ Left ventricular hypertrophy\.br \ Long-term insulin use\.br\ Low vitamin D level\.br\ Lumbar back pain with radiculopathy affecting lower extremity\.br\ Moderate recurrent major depression\.br\ Morbid obesity\.br\ Nocturia\.br\ Nocturnal hypoglycemia\.b r\ Obstructive sleep apnea syndrome, moderate\.br\ Osteopenia of multiple sites\.br\ Other insomnia not due to a substance or known physiological condition\.br\ Other specified hypothyroidism\ .br\ Pancreatic insufficiency\. 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 C/O body aches from head to toe History of Present Illness Nahed's left shoulder post reverse arthroplasty is improving with the exercises. She still has limited range of motion in her left shoulder. If she continues doing her exercises, then she usually does not experience any pain. After her fall causing foot fracture and injuring her L shoulder, she has been put back one month progress post operatively She fractured her left foot furing fall as above and is following with Dr Chadwick Pruett on this as well. She was advised that she could wear her shoes, but she is not able to get it on due to the swelling. She is still experiencing pain but able to ambulate on her foot. She was advised that it is healing appropriately. She continues to utilize the CPAP machine. She has to lay in a prone position due to wearing the CPAP. She complains that she gets extremely dry mouth. Her has increased humidity on the CPAP. She utilizes that CPAP with the nose piece because she was unable to breath using the full mask. She does not experience dry mouth if she is not wearing the CPAP. She does not communicate very much with the [employer] that provides her with the CPAP. The patient advised her neurologist, Dr. Mccormack about the issues she was having and it slightly improved. She feels like her throat is stuck together because it is so dry. She is experiencing R hip pain again and likely triggered by gait change due to L foot Fx as above. She had a follow up with pain management last week and they suggested that she have another ablation performed. In the [place] pain management office there is a new physician and midlevel provider she has met and with whom she feels comfortable. She has been experiencing aches from the top of her head to the bottom of her feet and wonders if this is due to fibromyalgia. This pain is in addition to those discomforts already mentioned in several complaints above. She continues taking half of 10 mg rosuvastatin daily. She had tried other cholesterol medication in the past but could not tolerate them. She has a history of type 2 diabetes. She has been taking Victoza maximum dose daily as well as 27 units Lantus twice daily. She has not had a low blood sugar reading for a month and this rarely occurs otherwise. Home glucose readings mainly taken while fasting and are less than 120. Last hemoglobin A1c 8.6% was 3 months ago during preop labs. Her blood pressure has been well controlled, she follows yearly with cardiology. Review of Systems PHQ Score Initial Depression Screen Score: 0 Review of systems is as per above in HPI. Physical Exam Vitals & Measurements T: 37 ?C(Oral) HR: 76(Peripheral) BP: 118/60 SpO2: 96% HT: 63 in HT: 160 cm WT: 112.3 kg WT: 247.06 lb BMI: 43.87 General: Patient is obese, no acute distress. Neurological: Her gait is with some antalgia mainly due to postop shoe on the left foot. Neck: Supple, no JVD, bruits, or thyromegaly. Heart: Regular rate and rhythm. Lungs: Clear to auscultation throughout. Extremities: Bilateral ankles and feet, there is 1 to 2+ edema which is persistent. Toes are warm and pink. Psychiatric: She presents as euthymic and her baseline today, no overt depression. Assessment/Plan 1. Type 2 diabetes mellitus with morbid obesity (E11.69: Type 2 diabetes mellitus with other specified complication) Hemoglobin A1c today is 8.4% which is slightly improved from 3 months ago, her fasting readings are at goal overall so we suspect this is elevation Hgb A1c related to postprandial readings, inactivity. Certainly we do not wish to drive her to hypoglycemia thus our goal hemoglobin A1c considering her age and comorbidities is less than 8%. I will have her split dose of Lantus only slightly increase to 30 units in the morning and stay 27 units at bedtime. She continues Victoza as well assisted which continues to benefit particularly as she also has cardiac disease of a minor degree. 2. 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 3. Long-term insulin use (Z79.4: care home (current) use of insulin) This is a status issue with Lantus dosage adjustments as above # 1. 4. Hyperlipidemia, mixed (E78.2: Mixed hyperlipidemia) She did have myalgias with multiple statin trials in the past, she complains of aching head to toe in addition to other painful orthopedic and neurologic complaints. I will have her hold the 5 mg rosuvastatin and we will call her for her assessment of this in a month. She does have relatively minor CAD, however, a statin on board in a patient with this level of risk is still the recommended course. Certainly we can communicate with her movie extra on this as well if it becomes necessary to leave her off of the statin should she have improvement of h (more content not included)... Normal [facility] Comment on above: Result Comment: Elec tronically Signed By: Shyla PRUETT MD, FAAFP\.br\Date and Time Signed: 12/20/22 21:59 EDT\.br\Electronically Co-Signed By: Suellen Vincent\.br\Date and Time Co-Signed: 12/20/22 17:33 EDT Patient Educationon 12-21-19 Patient Education Caregiving Basics of Medicine Management Taking your medicines correctly is an important part of managing or preventing medical problems. Make sure you know what disease or condition your medicine is treating, and how and when to take it. If you do not take your medicine correctly, it may not work well and may cause unpleasant side effects, including serious health problems. What should I do when I am taking medicines? ? Read all the labels and inserts that come with your medicines. Review the information often and with each refill. ? Talk with your pharmacist if you get a refill and notice a change in the size, color, or shape of your medicines. ? Know the potential side effects for each medicine that you take. ? Try to get all your medicines from the same pharmacy. The pharmacist will have all your information and will understand how your medicines will affect each other (interact). ? Always carry an updated list of your medicines with you. If there is an emergency, a welder first class can quickly see what medicines you are taking. ? Tell your health care provider about all your medicines, including gilg-jle-fbvmtkd medicines, vitamins, and herbal or dietary supplements. Your health care provider will make sure that nothing will interact with any of your prescribed medicines. How can I take my medicines safely? ? Take medicines only as told by your health care provider. ? Do not take more of your medicine than instructed. ? Do not take anyone else's medicines. ? Do not share your medicines with others. ? Do not stop taking your medicines unless your health care provider tells you to do so. ? You may need to avoid alcohol or certain foods or liquids when taking certain medicines. Follow your health care provider's instructions. ? Do not split, cut, crush, or chew your medicines unless your health care provider tells you to do so. Tell your health care provider if you have trouble swallowing your medicines. ? For liquid medicine, use the dosing container that was provided. Household spoons are not accurate. How should I organize my medicines? Know your medicines ? Know what each of your medicines looks like. This includes size, color, and shape. Tell your health care provider if you are having trouble recognizing all the medicines that you are taking. ? If you cannot tell your medicines apart because they look similar, keep them in the original bottles. ? If you cannot read the labels on the bottles, tell your pharmacist to put your medicines in containers with large print. ? Review your medicines and your schedule with family members, a friend, or a caregiver. Use a pill organizer ? Use a tool to organize your medicine schedule. Tools include a weekly pillbox, a written chart, a notebook, or a calendar. ? Your tool should help you remember the following things about each medicine: ? The name of the medicine. ? The amount (dose) to take. ? The schedule. This is the day and time the medicine should be taken. ? The appearance. This includes color, shape, size, and stamp. ? How to take your medicines. This includes instructions to take them with food, without food, with fluids, or with other medicines. ? Create reminders for taking your medicines. Use sticky notes, or use alarms on your watch, mobile device, or phone calendar. ? You may choose to use a more advanced management system. These systems have storage, alarms, and visual and audio prompts. ? Some medicines can be taken on an as-needed basis. These may include medicines for nausea, constipation, pain, cough and cold, allergies, and anxiety. If you take an as-needed medicine, write down the name and dose, as well as the date and time that you took it. How should I plan for travel? ? Take your pillbox, medicines, and organization system with you when traveling. ? Have your medicines refilled before you travel. This will ensure that you do not run out of your medicines while you are away from home. ? Always carry an updated list of your medicines with you. If there is an emergency, a welder first class can quickly see what medicines you are taking. ? Do not pack your medicines in checked luggage in case your luggage is lost or delayed. Keep your medicines in your carry-on bag. ? If any of your medicines is considered a controlled substance, make sure you bring a letter from your health care provider with you. How should I store and discard my medicines? For safe storage: ? Store medicines in a cool, dry area away from light, or as directed by your health care provider. Do not store medicines in the bathroom. Heat and humidity will affect them. ? Do not store your medicines with other chemicals or with medicines for pets or other household members. ? Keep medicines away from children and pets. Do not leave them on counters or bedside tables. Store them in high cabinets or on high shelves. Fo (more content not included)... [facility] Consultation Noteon 11-17-19 Consultation Note [id number]#[id number] 0CD:127 [facility] Coding Summary.on 11-15-2022 Coding Summary. CD:[id number] Ww +PGhlYWQ+FQ3UKDBfW88zw DAabY7vN9YABYkJAtcgGTH OIClQZeTczlWgTP2brEKaF XJu IC8+WX9bRTRvUqbdyWOab9 C4lHI6K42gmy7vTOfxbRH8 UABvOzCtusker2tjrRm7RK cuNmluOyBt DCKcyF63CYP0yB55Rt20lT DdcUYbh0okfWt0MpMuHGYf VUB8eDypXYqzr7QwCDYhO3 6nqMVwu5K8 VEPssGsaxAJtBqBbbYQ1fN 3tXIfveatlj8bzijkwLhr0 cg98eMOfp2J6aAE7B6Qvlb V6SJLtsDAt IluemBVDpK0awiisk8rbbm hoUbTcWFCeUKq4ECv0FDFv mAsuDfBvHU41YIW8XDIkuc OxI2ToFOLx pGhpAlD8r4G8Cg7AJ0BCJn jaT5UEHNRSEMyiuMA+PC90 uh02B9PvHauuWpf5DVDxYU F4yRV7aF6f YLJuRXvcb5T5fHK5X2Adbd Yuaa7bb0quTAKeJScaM19f lOFco2Q9PXRhzZG8ISKdmZ jdThWphY09 Oyc+RWCdmWlxv8YrPytod0 pxo2imaYh4QkfyMCIeroVz eRdqHGV8r4FkIg3pWKZduP K5dYN0pL4g XvLhZdQ8GOsxU749RyIodA MfRdyoD31mX9UxxKB+PHRy Yjf5WNTyxQqmHC3gB8ScOA RpbmctbGVm wMubCB2nWVHzfhctZRFelX 0mKRUtI2o9GiXwXfU3UGrg P2PdOGFeqcthQh96cO6uRh FwYhB4DOov L9XqvdB4RVWamCBnPPxuKY K8O59xp2I3AOKeUGYwLHQ7 vUK8xT6kmBtwjfhiwPXxzD sgdmVydGlj SKdgZQncP180BFOucTjzKi NvZGluZyBEYXRlOiAgMDQv MTcvMjAyMzwvdGQ+PHRkIH O1iAfsBEPa zDRzVQokPg7xhEvknTjyUE 6lIERxmqcwTFEemD6tFUPk qGSbxZgvWQ0dQHSsouian9 28MzKxRSS2 RKTvuDAtU3XcmF1zUmIsGY CgWOVkU5GlgYTaPBhhF243 SUhlBbI2HKEnpqPtJ0McTI FsaWduOiB0 q0P5Xp8Zh9MciruuU8UcyU ZqJdItDywkWLm6G8SoEzdk dHI+JW15RRYqIW43GEz9US A6dZwiHBxe DUScD5FviV7eNsRgXNYwEQ RkOyc+PHRhYmxlIHdpZHRo WOodAHHfRwLtjQsoSF2qBl 9yZGVyLWNv rJabgPXuQyHvn8dcONFzXT alLP7kvJdtA7UcmWW9MYBv f0m1Mn93C66hY7NneQT+PG PcnEN7mGN3 hL6yOuCxPqV9OOqdI723Ez RorUMeYmhtx8frq0szkGl9 GgI7EILyqrBnlWhrMCO2e4 DgOz57Q26e IHdpZHRoPSIxNSUiIHZhbG mgha3qzL7fDq6+PGNvbCB3 dGF5aV8zZuAfDeN4EGqxH1 49InRvcCIv Ekdkq2yms2kqfQt9BmVzWB DbrxVznQwbNBU1u9HjKj18 W4BelGfxa3EtTla0aw63yT Fdr3W1dFQ7 E6IuUTWsrgbbrJOnqDroHD 8yXWDcdnqrDLGmqM5mEPCo G0v5AhBuNsH9PRmzC4Oofp K9IWShsAOk XHYpeGHRnG1khrwrd0icrt tlAeOpZKNnYRn3XJv5YYNa tPwkQrLoCON1CmB3PNU7hL AcrX0lhUtr nhlueX8cTru+EEE1fLGhkI RHEY6qOzpcwFH+PHRkIHN0 kKplKMlbRSCmoX4bMWRgX6 x8EwBsQnK3 BBtpN4QttaE2LXBrbDCyCH NhoVONeC5battlk3gyqrxa NoKoZFRnZSf5PPs1VNCeqN duOiBsZWZ0 WoY3JHO9pIZqzC5mmRwggh kwxA2qJqu+QmlydGggRGF0 YIm2T4LrZxh6RQAbiQqbLE 0ncGFkZGlu Ou7qrGsgkHefYH4tFAFdbg giw467PwVgs6olOMEhmGPd UBhjMSG3Q63vw8V5RPLsFD NhVSN2tNZ1 iN1zxLndlnfcyXRpiBawrt GloZhmBAibQXikO522AFLp zClxJfUfNAa2E0AqQqm0FI LrtKihLO2t vWXyCTpbJd7qxQwiyGsvPI 1sFTTjbctmt621LaBek4xc CNEtuXGpKKiqOGL8N68hu1 J9WUPbTSVa GYS1gSR5lG3hnPmfecamqX VmdDsgdmVydGljYWwtYWxp O656JMFfhYmlUeBvwYh6X5 PnMnx5JLXo jOpsRN0xbOSiXHwcVo6uoV rudDxsNE8vTWBzqxeoq607 MxOly6fjDKInqTBnQKgeTT G8N27gx8Q3 RXDmBOKeRND8yRL6qZ2njQ lnbjogbGVmdDsgdmVydGlj KLdqXOgjN331FKIqdOukUx BhdGllbnQg GFqxZTc7X9TgWaemeWA+PC 10QJFvZJ87iFXduKXfz2an tFm9DfAqWQFqOXF3mNtvLE swv5CaQEYx Z47fuVZfh0J7XNUnnHsprX EpKuZgfSR4iT0uURdorpyv o0bnptweCfvjo5tzaz68tW 03K63iKUmo ZHRoPSIzMCUiIHZhbGlnbj 6zhT7ePe7+KBJwoEG2fQS8 iQ5dKXYuTjH7EIdeO367Mg RvcCIvPjxj v1tzp4qpdEe3ZsT1YLKlkb EobInyGOT9m6KsYk39Q86g IHdpZHRoPSIyMCUiIHZhbG hzmn0dkS1h Ii8+BMMxsEF8gDF6bJ7tRz OwFqD5WPovV260LeXfkIIr DhhmH54sD8FfjTX+PHRyPj v0POVvsQrv DQ1dbGIfRTlwVj0sEJU6Jb AwYnPyXFepD9KuDLIkjmbu zxxeyFT9VJHtKQUwvT30Ga 9udDogMTBw xVQIoY2hhwgfa9gtddjrRh KlNPVeKUj1SLz5HIWzyKth OoJqRAY4WxM0DXX1jVPwaR 1hbGlnbjog eE4kQ8ArPUNbbcqkRa76qY 9dDqMsWzG6INemFrw+UElO TZgpE2iWEBvCMMWLDG71ZI 08hIIpa0T3 nKQ8B5LxCCYiaqmokuvyyE V6FZZuTIDwjQ93sXNzJTqu Bw3ej0E0q175DFMkLYKfkX 18Vy0xyUlo SQDsmWAKcW4wcqakx3dpct lvCaYwKPUnWVa8NSu4DRQn iVbpEmBuURX1IfU2ZUH6zG AaiZ3whAar repjiY3nXta+MDcvMjEvMT n5BkulxRN+KYIhXTB8eZth QErfOXLmtA8jFVZjB6x2Lj AfHiB4IFcp G5LwULEzukudHt57nE7iDx DzFwU4SCpxD2LpcrG3BVCo yCXpWSkcLRA9B55ut2T1CR MwMDAwMDA7 tFC8pH4wfTwlvxklbULvyJ fbbkRctGdtAYnoPZgsO547 TZCdoAemJof1TIcjHXDkCF 70UL41iBMz t4K5cGC5G3IkRDXfajcren jfbSA4INZlWQMmvQ49iTFs KBopYv2tx8M9j822CJVwVJ MleR27Ye9y rXcuUVFlyAUCrP1bstjjf9 ymrhkmLeJbETAzBIm8DIv5 CFOboWtgMaZnJPT3UoM2FU J6aGDhuO3k rJitioqypB6xMsb+RmVtYW wdJW47GN33dXYcy3V3fMC2 V1FlCGEyrngmdoouwER4FO TqFYZsiM37 wIKkKTdpNp3hd6I6r797FL DuEFHmlL08Xo0txDmcCOSx oJDVxB1vyduzn3wzegvyZi AwMDAwMDt0 PYi9IEGbyMgmCxCdUUU5Li Q3YFB1iAVkwT7ylCntwgbr iZ0dHyc+V7Y9uXJ6eMNrfR wvdGQ+PC90 wz31Z2IbBurmPfa7IDTbAA R2aTY0iG9nBYPqCSdfp4Q0 uEF2C8HimoBmhf1yd4pxEM KrOZqqC52s eJSpy3K7WCWmaIL1GOBrpK yjJbXpeV47Fzq+PGNvbGdy e2OfJckhq0duh4ghqMv4Jw MwJSIgdmFs aMeaVAI5l8GyVy93N97nEU dpZHRoPSIzMCUiIHZhbGln jm9eqV9nAh7+SRJcrRO9iB J7dI3dNyRh UzF7TDxxR156HfUxiKWrZd soa3jtw3dxjXl5HbLoQIKe yzFgsZicTTR4c6OfFe94L4 LcnYtty8Iz Wis5js59iHDkt0U2uZW6O0 GjYDItmhtmfMPopJpuCZ8v HWBahxtrIALzyX3bFXCiF4 w0UaHxWeM1 NPppF1CejvG7NHUyzNXeLG PorLSGqA3ufhtjl6mefqsx EmVwMNJrUFj6BEl8FCVwqM duOiBsZWZ0 KeJ6DVU6yLRdzJ6wvPgznh vmoN6hEzp+FDk4s5juyRXq TH1cfGI5BM72EP92oUJcu0 V4aKU1A1Ql UEVmotihwlxvsNY0JPRiGQ LhuL98Ql8uwCsoHn5fJRNb SHI5KEWnoLIpI3UfyL0gKa AjMDAwMDAw N8FavNXxAQtvU607GZopSg G4KSRugvLsQ7CeOEZsvKrl EpK2r7S8Kh2GYC38OJ10TY 06mRHtw6W9 bOD8O2WwTYKprmezgvivfG E6KFGaZWRwdC28Tp2wpXvt Pc2dAUFkCOD1AJOneXEpN2 RbpV2zSdTe BYSkBJJlR0KukQGbRXqtM9 44ESixWbR1DOQywzNfN0Hd WOHwoVgcUkX3g9L8Qq9XXu 12HH99KL51 lABwi0A7uDJ3P6IgVFWhnn lwjodfqJW2QINmEPDxsD01 Dr6dmOxbPi0mQKJbSPK6OG OcpSHqX8Fj yF2pDkRdPWVySTYwX5SexK BrBKzmR965TDxpXaW8IUAb vdMgQ4FlCEPppHiiKfC9l5 G1Oq5QWWxq uwc5X3KkZqmhvRO+PC90YW IfBV27hDWtxLBif9uexXg5 JqVhYXLiNIR4xKruWPebc8 TmNMGbW75y dDDry0D9 (more content not included)... [facility] Physician Referralon 023 Physician Referral [id number]#[id number]:127 [facility] Family Medicine Office/Clini c Noteon 11-09-2022 Family Medicine Office/Clinic Note Chief Complaint Pt here for [facility] ER 11/05/22 for fall and left shoulder pain f/u, now left foot hurts. here with room 5 History of Present Illness Sylwia presents with her . She was seen in the [place] ER on 11/05/2022 after a direct fall on her left shoulder that she had replaced 1 month ago; she fell in the hospital parking lot after having labs completed. She was wearing a sling when she fell. Her orthopedic surgeon, Dr. Evan Pruett told her to discontinue exercises and to follow up in 1 week if she is still in pain. She currently has a contusion down to her elbow. Her reports that her x-ray that she completed after her fall showed no changes when compared to her post operative x-ray. Nahed reports that there is popping near her distal humerus. Nahed was having pain in her left great toe in the ER after falling; she tripped over a parking curb with left foot but pain was minimal at that time compared to her left shoulder so no formal evaluation was done. By now she has significant bruising and swelling, she has sharp pains like electrical shocks in the left foot and particularly when she is sleeping. She is elevating her left foot due to swelling and is intermittently icing the area; the swelling has reduced in half by today. Her helps her ambulate, she does bear weight to the left foot while walking short distances only and is using a postop shoe. She was prescribed PERCOCET after her surgery which caused hallucinations and GI upset. She was switched to [place] and was only taking 1 to 2 per day prior to her fall. She is currently taking [place] every 4 to 6 hours for pain. She inquires if she can take doxepin at night with [place]. Her blood sugar has increased due to pain and inability to move, she was surprised to see a reading of 200 this morning. Nahed takes chronic anticoagulation due to atrial fibrillation. Review of Systems PHQ Score Initial Depression Screen Score: 0 Review of systems is as per above in HPI. Physical Exam Vitals & Measurements T: 35.9 ?C(Temporal Artery) HR: 79(Peripheral) RR: 16 BP: 128/58 SpO2: 94% HT: 63 in HT: 160 cm General: Patient is overweight, she is seated in wheelchair and is in no acute distress. Her left shoulder is in a sling, the surgical incision line is well healed and tracks obliquely over the pectoralis major to the anterior aspect of the humerus. There is some reddening of the areas around this but no actual contusion or hematoma. We did not ask the patient to perform range of motion testing. Extremities: The left foot is involved with a contusion and hematoma, the dorsal bases of all the toes and almost the entirety of the dorsum of the left foot. She is able to actively flex and extend the great toe; the four smaller digits with minimal movement, we determined is mainly due to swelling. Palpation over the foot done from the plantar aspect is most significant for tenderness over the third metatarsal distally. There is no bruise showing on the plantar aspect of the foot. She is able to demonstrate reasonable and painless range of motion of the left ankle. Assessment/Plan 1. Left shoulder pain (M25.512: Pain in left shoulder) This is an unfortunate direct fall on to a recently replaced left shoulder, her orthopedic surgeon is set to see her within the week, and she has been in contact with him through his office. She has adequate [place] available also from the orthopedic surgeon. 2. Left foot pain (M79.672: Pain in left foot) This injury was not as significant when reported to the emergency doctor at the first presentation on 11/05/2022. I have reviewed the emergency department summary from [facility] from that day as an external document. I recommend multiple view x-rays of the left foot, which is ordered, and the patient wishes to go up to [place] this evening for the x-rays and we will call with the result. We discussed proper icing techniques, especially since she is diabetic, she should not ice for more than 15 to 20 minutes continuously. Elevate when she is not on her feet, I agree with the use of the postop shoe when she must bear weight until we know x-ray results. Ordered: XR Foot 3+ Views Left 3. Anticoagulated (Z79.01: care home (current) use of anticoagulants) This intensifies the amount of bleeding into this hematoma on the left foot. 4. BMI 40.0-44.9, adult (Z68.41: Body mass index [BMI] 40.0-44.9, adult) Urged healthy diet with decreased calories and increased vegetables. Encouraged increased activity and a goal of 150 minutes per week of exercise. Ordered: Body Mass Index (BMI) documented 3008F Current tobacco non-user 1036F Depression Screening Negative 3352F Fall Risk Screen 2 or more w/injury 1100F HBA1C 8.0 to <9.0 Most Recent Level 3052F Influenza immunization status assessed 1030F Most recent diastolic blood pressure <80 mm Hg 3078F Pneumococcus immunization status assessed 1022F Systolic BP <130 mm Hg (Most Recent) (more content not included)... [facility] Comment on above: Result Comment: Elec tronically Signed By: Shyla PRUETT MD, FAAFP\.br\Date and Time Signed: 11/08/22 22:15 EDT\.br\Electronically Co-Signed By: Keren Chen\.br\Date and Time Co-Signed: 11/08/22 21:55 EDT XR Foot 3+ Views Lefton 04- XR Foot 3+ Views Left Exam Date/Time: 11/08/2022 20:43 EDT Reason for Exam: Pain, Traumatic Report IMPRESSION TINY CALCIFIC/OSSEOUS FRAGMENTS OFF THE POSTERIOR MEDIAL CUBOID BONE POSSIBLY RELATED TO AVULSION OF INDETERMINATE AGE. CLINICAL CORRELATION SUGGESTED. OTHERWISE NO ACUTE FRACTURE EXAM: XR Foot 3+ Views Left DATE: 11/08/2022 8:27 PM INDICATION: Acute left foot pain Pain, Traumatic COMPARISON: None available. FINDINGS: Dorsal soft tissue swelling. Tiny ossified/calcified fragments adjacent to the the posterior medial margin of the left cuboid bone possibly related to trauma/avulsion of indeterminate age. If there is no pinpoint tenderness at this site then this is most likely remote. Otherwise no signs of acute fracture. Moderate degenerative changes the DIP and PIP joints. No erosions. Alignment normal. Age-appropriate bone density.. Small heel spur Ordering Provider: Shyla PRUETT FINAL REPORT Dictated: 11/09/2022 10:55 am Alvaro Sepulveda MD Signed (Electronic Signature): 11/09/2022 10:55 am Signed by: Alvaro Sepulveda MD Transcribed by: JENNIFER Technologist: DAVIS Technical Comments Radiation Dose: Ka,r in mGy = na DAP = na [facility] Ambulatory Visit Summaryon 0 11-08-2022 Ambulatory Visit Summary NAHED PETERSON :1945 Visit Date:11/08/2022 Ambulatory Visit Instructions Your Diagnosis Left shoulder pain Left foot pain Anticoagulated BMI 40.0-44.9, adult Morbid obesity Your Care Team Attending Physician - Shyla PRUETT MD, FAAFP Primary Care Physician - Shyla PRUETT MD, FAAFP This Is Your Medications List celecoxib (CeleBREX 100 mg Cap) Contact prescribing physician if questions or concerns Misc Prescription (glucometer test strip) Misc Prescription (pen needles) acetaminophen-hydrocod one (acetaminophen-hydroco done 325 mg-5 mg oral tablet) baclofen (baclofen 10 mg Tab) carvedilol (carvedilol 25 mg Tab) cetirizine (cetirizine 10 mg oral capsule) cyanocobalamin (Vitamin B12 1000 mcg Tab) diltiazem (Cardizem 60 mg Tab) docusate (Colace 100 mg Cap) doxepin (doxepin 10 mg Cap) duloxetine (Cymbalta 30 mg Cap-EC) ferrous gluconate (ferrous gluconate 256 mg (28 mg elemental iron) oral tablet) fluconazole (Diflucan 150 mg Tab) furosemide (furosemide 20 mg Tab) insulin glargine (Lantus Solostar Pen 100 units/mL subcutaneous solution) levothyroxine (levothyroxine 75 mcg (0.075 mg) Tab) liraglutide (Victoza 6 mg/mL subcutaneous injection) nystatin topical (nystatin Top 100,000 units/g Crm 15 gram) ramipril (ramipril 5 mg Cap) rivaroxaban (Xarelto 20 mg oral tablet) rosuvastatin (rosuvastatin 10 mg Tab) [Image Removed: STOP]Stop taking these medications Non-Formulary Medication (Vision Formula/Lutein) acetaminophen-oxycodon e (Percocet 5 mg-325 mg oral tablet) cholecalciferol (Vitamin D3) magnesium oxide (magnesium oxide 400 mg Tab) Procedures Performed Arthroscopy of shoulder with biceps tenodesis (10/07/2022), Injection (01/19/2022), Ablation (11/03/2021), Esophagogastroduodenos copy and polypectomy of duodenum (07/17/2021), Cholecystectomy (03/20/2021), Colonoscopy (06/11/2020), appendectomy, bilateral carpal tunnel elease, Bilateral cataract, Cardiac catheterization, EGD (esophagogastroduodeno scopy) gastric outlet reduction, hysterectomy, L 4-5t toes --- bones and toenails removed, L and R rotator cuff, R hand tendons, R ulna n transposition, right ankle surgery, shoulder surgery, tubes tied. Discharge Vitals Temperature (Temporal Artery) 35.9 ?C Heart Rate (Peripheral) 79 Respiratory Rate 16 Blood Pressure 128/58 Height 160 cm Height 63 in What to do next Scheduled Follow-Up Appointments Tuesday 1:20 PM EDT With: Shyla PRUETT MD, FAAFP Where: [facility] [place] [facility] Consent for Treatmenton 10-30 Consent for Treatment [id number]#[id number] 0CD:127 [facility] Consultation Noteon 11-09-19 Consultation Note [id number] 0CD:127 [facility] Patient Educationon 11-09-19 Patient Education Orthopedics Acute Pain, Adult Acute pain is a type of sudden pain that may last for just a few days or for as long as six months. It is often related to an illness, injury, or medical procedure. Acute pain may be mild, moderate, or severe. Pain can make it hard for you to do your normal, daily activities. It can cause anxiety and lead to other problems if it is left untreated. Treatment depends on the cause and severity of your pain. Acute pain usually goes away once your injury has healed or you are no longer ill. Follow these instructions at home: Medicines ? Take oyap-omu-wsbfbyx and prescription medicines only as told by your health care provider. ? Take the lowest dose of medicine for the shortest amount of time needed to relieve the pain. ? If you are taking prescription pain medicine: ? Do not stop taking the medicine suddenly. Talk to your health care provider about how and when to discontinue prescription medicine. ? Do not take more pills than told by your health care provider even if your pain is severe. ? Do not take other hbzu-oxf-wgdxcxh pain medicines in addition to prescription pain medicine unless told by your health care provider. ? Ask your health care provider if the medicine requires you to avoid driving or using heavy machinery. ? Ask your health care provider if the medicine can cause constipation. You may need to take these actions to prevent or treat constipation: ? Drink enough fluid to keep your urine pale yellow. ? Eat foods that are high in fiber, such as beans, whole grains, and fresh fruits and vegetables. ? Take kotg-rqt-yielkcj or prescription medicines. ? Limit foods that are high in fat and processed sugars, such as fried or sweet foods. Managing pain, stiffness, and swelling If directed, put ice on the affected area. To do this: ? Put ice in a plastic bag. ? Place a towel between your skin and the bag. ? Leave the ice on for 20 minutes, 2?3 times a day. If directed, apply heat to the affected area as often as told by your health care provider. Use the heat source that your health care provider recommends, such as a moist heat pack or a heating pad. ? Place a towel between your skin and the heat source. ? Leave the heat on for 20?30 minutes. ? Remove the heat if your skin turns bright red. This is especially important if you are unable to feel pain, heat, or cold. You may have a greater risk of getting burned. Activity ? Rest as told by your health care provider. ? Return to your normal activities as told by your health care provider. Ask your health care provider what activities are safe for you. General instructions ? Check your pain level as told by your health care provider. ? Ask your health care provider if other strategies such as distraction, relaxation, or physical therapies can help your pain. ? Keep all follow-up visits as told by your health care provider. This is important. Contact a health care provider if: ? Your pain is not controlled by medicine. ? Your pain does not improve or gets worse. ? You have side effects from pain medicines, such as vomiting or confusion. Get help right away if you: ? Have severe pain. ? Have trouble breathing. ? Lose consciousness. ? Have chest pain or pressure that lasts for more than a few minutes, or if you have other symptoms along with chest pain, including if you: ? Have pain or discomfort in one or both arms, your back, neck, jaw, or stomach. ? Have shortness of breath. ? Break out in a cold sweat. ? Feel nauseous. ? Become light-headed. These symptoms may represent a serious problem that is an emergency. Do not wait to see if the symptoms will go away. Get medical help right away. Call your local emergency services (911 in the [place] Do not drive yourself to the hospital. Summary ? Acute pain may be mild, moderate, or severe. It usually goes away once your injury has healed or you are no longer ill. ? Take kvsi-btv-ghvxnty and prescription medicines only as told by your health care provider. ? Ask your health care provider if the medicine prescribed to you can cause constipation. ? Contact a health care provider if your pain is not controlled by medicine. This information is not intended to replace advice given to you by your health care provider. Make sure you discuss any questions you have with your health care provider. Document Released: 08/01/2016 Document Revised: 12/03/2019 Document Reviewed: 12/03/2019 Elsevier Patient Education ? 2019 [employer] [facility] RAD - MISCon 11-07-2022 RAD - MISC [id number]#[id number] 0CD:127 [facility] XR SHOULDER LEFT (MIN 2 VIEW S)on 11-05-2022 XR SHOULDER LEFT (MIN 2 VIEWS) EXAM: XR SHOULDER LEFT (MIN 2 VIEWS) HISTORY: Reason for exam:->fall, left shoulder injury. Recent left shoulder surgery COMPARISON: 06/10/2022 left shoulder, preop. IMPRESSION: FINDINGS/IMPRESSION: 1. 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 2. 3.4 cm bone fragment at the superior aspect of the prosthesis. This might have been avulsed from the proximal humerus if there was direct trauma. Interpreted by: Mykel Huizar Jr., MD Signed by: Mykel Huizar Jr., MD 11/05/22 Final result [facility] FINDINGS/IMPRESSION: 1. 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 2. 3.4 cm bone fragment at the superior aspect of the prosthesis. This might have been avulsed from the proximal humerus if there was direct trauma. [facility] EXAM: XR SHOULDER LE FT (MIN 2 VIEWS) HISTORY: Reason for exam:->fall, left shoulder injury. Recent left shoulder surgery COMPARISON: 06/10/2022 left shoulder, preop. [facility] Mykel Huizar Jr., MD - 11/05/2022 EXAM: XR SHOULDER LEFT (MIN 2 VIEWS) HISTORY: Reason for exam:->fall, left shoulder injury. Recent left shoulder surgery COMPARISON: 06/10/2022 left shoulder, preop. IMPRESSION: FINDINGS/IMPRESSION: 1. 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 2. 3.4 cm bone fragment at the superior aspect of the prosthesis. This might have been avulsed from the proximal humerus if there was direct trauma. [facility] [employer] Work Phone: Radiology Study observation (narrative) [facility] [employer] Work Phone: XR SHOULDER LEFT (MIN 2 VIEW S)Ordered By: Mykel Huizar on 11-05-2022 [facility] [employer] Work Phone: CBC with Auto Differentialon 10-27-2022 Absolute Eos # 0.70 High [facility] Absolute Lymph # 1.70 [facility] SEC[facility] URS [facility] Absolute [place]is[place] # 0.90 [facility] SECOU RS [facility] [employer] Basophils (Bld) [#/Vol] 0.10 10*3/uL [facility] [employer] Basophils/100 WBC (Bld) 1 % 0 - 2 % [facility] [employer] Differential Type YES [facility] Eosinophils/100 WBC (Bld) 10 % High 0 - 5 % [facility] Hematocrit (Bld) [Volume fraction] 40.1 % 36 - 46 % [facility] Hemoglobin (Bld) [Mass/Vol] 13.3 g/dL 12.0 - 16.0 g/dL [facility] [place] Interpretation and review of laboratory results Abnormal [facility] Lymphocytes/100 WBC (Bld) 25 % 15 - 40 % [facility] [place] MCH (RBC) [Entitic mass] 30.5 pg 26 - 34 pg [facility] MCHC (RBC) [Mass/Vol] 33.2 g/dL 31 - 37 g/dL [facility] MCV (RBC) [Entitic vol] 92.0 fL 80 - 100 fL [facility] Monocytes/100 WBC (Bld) 13 % High 4 - 8 % [facility] [place] Platelet distribution width (Bld) [Ratio] 15.5 % High 12.1 - 15.2 % [facility] [place] Platelets (Bld) [#/Vol] 385 10*3/uL [facility] [place] RBC (Bld) [#/Vol] 4.35 10*6/uL 4.0 - 5.2 m/uL [facility] Segmented neutrophils/100 WBC (Bld) 51 % 47 - 75 % [facility] Segs Absolute 3.40 [facility] WBC (Bld) [#/Vol] 6.6 10*3/uL [facility] CBC with Diffon 10-27-2022 Abs. Basophil 0.10 k/uL Normal 0.0-0.2 [facility] Comment on above: Performed By: #### M G, TSHX, ZFAST, CP, CDP #### [facility] [address] [place] [address] Lapidary Apprentice: Bryan Moody MD #### LIPR #### [address] [id number] Lapidary Apprentice: Aleksey Deleon MD Abs.Neutrophil (Seg) 3.40 k/uL Normal 2.5-7.0 [facility] Comment on above: Performed By: #### M G, TSHX, ZFAST, CP, CDP #### [facility] [address] [place] [address] Lapidary Apprentice: Bryan Moody MD #### LIPR #### [place] [phone] Lapidary Apprentice: Aleksey Deleon MD Auto Diff Performed YES Normal [facility] Comment on above: Performed By: #### M G, TSHX, ZFAST, CP, CDP #### [facility] [address] [place], [place] [phone] Lapidary Apprentice: Bryan oMody MD #### LIPR #### [address] [address] Lapidary Apprentice: Aleksey Deleon MD Basophils/100 WBC (Bld) 1 % Normal 0-2 [facility] Comment on above: Performed By: #### M G, TSHX, ZFAST, CP, CDP #### [facility] [address] [place] [address] Lapidary Apprentice: Bryan Moody MD #### LIPR #### [address] [phone] Lapidary Apprentice: Aleksey Deleon MD Eosinophils (Bld) [#/Vol] 0.70 10*3/uL High 0.0-0.4 [facility] Comment on above: Performed By: #### M G, TSHX, ZFAST, CP, CDP #### [facility] [address] [place] [address] Lapidary Apprentice: Bryan Moody MD #### LIPR #### [place] [phone] Lapidary Apprentice: Aleksey Deleon MD Eosinophils/100 WBC (Bld) 10 % High 0-5 [facility] Comment on above: Performed By: #### M G, TSHX, ZFAST, CP, CDP #### [facility] [address] [place] [address] Lapidary Apprentice: Bryan Moody MD #### LIPR #### [place] [phone] Lapidary Apprentice: Aleksey Deleon MD Erythrocyte distribution width (RBC) [Ratio] 15.5 % High 12.1-15.2 [facility] Comment on above: Performed By: #### M G, TSHX, ZFAST, CP, CDP #### [facility] [address] [place] [address] Lapidary Apprentice: Bryan Moody MD #### LIPR #### [address] [phone] Lapidary Apprentice: Aleksey Deleon MD Hematocrit (Bld) [Volume fraction] 40.1 % Normal 36-46 [facility] Comment on above: Performed By: #### M G, TSHX, ZFAST, CP, CDP #### [facility] [address] [place], [place] [phone] Lapidary Apprentice: Bryan Moody MD #### LIPR #### [address] [phone] Lapidary Apprentice: Aleksey Deleon MD Hemoglobin (Bld) [Mass/Vol] 13.3 g/dL Normal 12.0-16.0 [facility] Comment on above: Performed By: #### M G, TSHX, ZFAST, CP, CDP #### [facility] [address] [place] [address] Lapidary Apprentice: Bryan Moody MD #### LIPR #### [address] [phone] Lapidary Apprentice: Aleksey Deleon MD Lymphocytes (Bld) [#/Vol] 1.70 10*3/uL Normal 1.0-4.8 [facility] Comment on above: Performed By: #### M G, TSHX, ZFAST, CP, CDP #### [facility] [address] [place], [place] [phone] Lapidary Apprentice: Bryan Moody MD #### LIPR #### [address] [address] Lapidary Apprentice: Aleksey Deleon MD Lymphocytes/100 WBC (Bld) 25 % Normal 15-40 [facility] Comment on above: Performed By: #### M G, TSHX, ZFAST, CP, CDP #### [facility] [address] [place], [place] [phone] Lapidary Apprentice: Bryan Moody MD #### LIPR #### [address] [phone] Lapidary Apprentice: Aleksey Deleon MD MCH (RBC) [Entitic mass] 30.5 pg Normal 26-34 [facility] Comment on above: Performed By: #### M G, TSHX, ZFAST, CP, CDP #### [facility] [address] [place], [place] [phone] Lapidary Apprentice: Bryan Moody MD #### LIPR #### [address] [phone] Lapidary Apprentice: Aleksey Deleon MD MCHC (RBC) [Mass/Vol] 33.2 g/dL Normal 31-37 [facility] Comment on above: Performed By: #### M G, TSHX, ZFAST, CP, CDP #### [facility] [address] [place], [place] [phone] Lapidary Apprentice: Bryan Moody MD #### LIPR #### [place] [address] Lapidary Apprentice: Aleksey Deleon MD MCV (RBC) [Entitic vol] 92.0 fL Normal 80-100 [facility] Comment on above: Performed By: #### M G, TSHX, ZFAST, CP, CDP #### [facility] [address] [place] [address] Lapidary Apprentice: Bryan Moody MD #### LIPR #### [place] [address] Lapidary Apprentice: Aleksey Deleon MD Monocytes (Bld) [#/Vol] 0.90 10*3/uL Normal 0.0-1.0 [facility] Comment on above: Performed By: #### M G, TSHX, ZFAST, CP, CDP #### [facility] [address] [place] [address] Lapidary Apprentice: Bryan Moody MD #### LIPR #### [place] [phone] Lapidary Apprentice: Aleksey Deleon MD Monocytes/100 WBC (Bld) 13 % High 4-8 [facility] Comment on above: Performed By: #### M G, TSHX, ZFAST, CP, CDP #### [facility] [address] [place], [place] [phone] Lapidary Apprentice: Bryan Moody MD #### LIPR #### [address] [phone] Lapidary Apprentice: Aleksey Deleon MD Neutrophil (Seg) 51 % Normal 47-[address] [facility] Comment on above: Performed By: #### M G, TSHX, ZFAST, CP, CDP #### [facility] [address] [place], [place] [phone] Lapidary Apprentice: Bryan Moody MD #### LIPR #### [address] [phone] Lapidary Apprentice: Aleksey Deleon MD Platelets (Bld) [#/Vol] 385 10*3/uL Normal 140-450 [facility] Comment on above: Performed By: #### M G, TSHX, ZFAST, CP, CDP #### [facility] [address] [place], [place] [phone] Lapidary Apprentice: Bryan Moody MD #### LIPR #### [address] [phone] Lapidary Apprentice: Aleksey Deleon MD RBC (Bld) [#/Vol] 4.35 10*6/uL Normal 4.0-5.2 [facility] Comment on above: Performed By: #### M G, TSHX, ZFAST, CP, CDP #### [facility] [address] [place], [place] [phone] Lapidary Apprentice: Bryan Moody MD #### LIPR #### [address] [phone] Lapidary Apprentice: Aleksey Deleon MD WBC (Bld) [#/Vol] 6.6 10*3/uL Normal 3.5-11.0 [facility] Comment on above: Performed By: #### M G, TSHX, ZFAST, CP, CDP #### [facility] [address] [place] [address] Lapidary Apprentice: Bryan Moody MD #### LIPR #### [facility] [address] [place] [address] Lapidary Apprentice: Aleksey Deleon MD Comp Metabolic Profon 2022 Albumin [Mass/Vol] 3.8 g/dL Normal 3.5-5.2 [facility] Comment on above: Performed By: #### M G, TSHX, ZFAST, CP, CDP ####[facility] [address]mc[address] [place], [place] [phone] Director: Bryan Moody MD#### LIPR ####[facility] [place], [place] [phone] Director: Aleksey Deleon MD Alkaline Phos 122 U/L High 35-104 [facility] Comment on above: Performed By: #### M G, TSHX, ZFAST, CP, CDP ####[facility] Vfp[address] [place], [place] [phone] Director: Bryan Moody MD#### LIPR ####[facility] [place], [place] [phone] Director: Aleksey Deleon MD ALT [Catalytic activity/Vol] 14 U/L Normal 5-33 [facility] Comment on above: Performed By: #### M G, TSHX, ZFAST, CP, CDP ####[facility] Ufj[address] [place], [place] [phone] Director: Bryan Moody MD#### LIPR ####[facility] [address] [place] [address] Lab Director: Aleksey Deleon MD Anion gap [Moles/Vol] 11 mmol/L Normal 9-17 [facility] Comment on above: Performed By: #### M G, TSHX, ZFAST, CP, CDP ####[facility] Zbl6078 [place], [place] [phone] Director: Bryan Moody MD#### LIPR ####[place] [address] [place] [address] Lab Director: Aleksey Deleon MD AST [Catalytic activity/Vol] 11 U/L Normal <32 [facility] Comment on above: Performed By: #### M G, TSHX, ZFAST, CP, CDP ####[facility] [address]xg7[address] [place], [place] [phone] Director: Bryan Moody MD#### LIPR ####[place] [address] [place] [address] Lab Director: Aleksey Deleon MD Bilirubin [Mass/Vol] 0.5 mg/dL Normal 0.3-1.2 [facility] Comment on above: Performed By: #### M G, TSHX, ZFAST, CP, CDP ####[facility] Zmz3814 [place], [place] [phone] Director: Bryan Moody MD#### LIPR ####[place] [address] [place] [address] Lab Director: Aleksey Deleon MD BUN/CRE Ratio 24 High 9-20 [facility] Comment on above: Performed By: #### M G, TSHX, ZFAST, CP, CDP ####[facility] Qcp4793 [place], [place] [phone] Director: Bryan Moody MD#### LIPR ####[facility] [place] [address] Lab Director: Aleksey Deleon MD Calcium [Mass/Vol] 9.3 mg/dL Normal 8.6-10.4 [facility] Comment on above: Performed By: #### M G, TSHX, ZFAST, CP, CDP ####[facility] Lqn8574 [place] [address] Lab Director: Bryan Moody MD#### LIPR ####[facility] [place] [address] Lab Director: Aleksey Deleon MD Chloride [Moles/Vol] 105 mmol/L Normal 98-107 [facility] Comment on above: Performed By: #### M G, TSHX, ZFAST, CP, CDP ####[facility] [address]ag[address] [place] [address] Lab Director: Bryan Moody MD#### LIPR ####[facility] [place] [address] Lab Director: Aleksey Deleon MD CO2 [Moles/Vol] 26 mmol/L Normal 20-31 [facility] Comment on above: Performed By: #### M G, TSHX, ZFAST, CP, CDP ####[facility] Nda[address] [place] [address] Lab Director: Bryan Moody MD#### LIPR ####[facility] [place] [address] Lab Director: Aleksey Deleon MD Creatinine [Mass/Vol] 0.49 mg/dL Low 0.50-0.90 [facility] Comment on above: Performed By: #### M G, TSHX, ZFAST, CP, CDP ####[facility] Kli[address] [place], [place] [phone] lab Director: Bryan Moody MD#### LIPR ####[place] [address] [place], [place] [phone] lab Director: Aleksey Deleon MD GFR/1.73 sq M.predicted among non-blacks MDRD (S/P/Bld) [Vol rate/Area] mL/min/{1.73_m2} Normal >60 [facility] Comment on above: Result Comment: These results are not intended for use in patients <18 years of age. eGFR results are calculated without a race factor using the 2020 CKD-EPI equation. Careful clinical correlation is recommended, particularly when comparing to results calculated using previous equations. The CKD-EPI equation is less accurate in patients with extremes of muscle mass, extra-renal metabolism of creatine, excessive creatine ingestion, or following therapy that affects renal tubular secretion. Performed By: #### M G, TSHX, ZFAST, CP, CDP ####[facility] W[address] [place], [place] [phone] lab Director: Bryan Moody MD#### LIPR ####[address] [phone] Lab Director: Aleksey Deleon MD Glucose [Mass/Vol] 91 mg/dL Normal 70-99 [facility] Comment on above: Performed By: #### M G, TSHX, ZFAST, CP, CDP ####[facility] Ixj15[address] [place], [place] [phone] lab Director: Bryan Moody MD#### LIPR ####[facility] [place], [place] 1557408 Lab Director: Aleksey Deleon MD Potassium [Moles/Vol] 3.9 mmol/L Normal 3.7-5.3 [facility] Comment on above: Performed By: #### M G, TSHX, ZFAST, CP, CDP ####[facility] Qvg6190 [place], [place] 9953781 Lab Director: Bryan Moody MD#### LIPR ####[facility] [address] [place] [address] Lab Director: Aleksey Deleon MD Protein [Mass/Vol] 6.4 g/dL Normal 6.4-8.3 [facility] Comment on above: Performed By: #### M G, TSHX, ZFAST, CP, CDP ####[facility] Fhs6606 [place], [place] [phone] Lab Director: Bryan Moody MD#### LIPR ####[facility] [place] [address] Lab Director: Aleksey Deleon MD Sodium [Moles/Vol] 142 mmol/L Normal 135-144 [facility] Comment on above: Performed By: #### M G, TSHX, ZFAST, CP, CDP ####[facility] Yrd[address] [place], [place] 1077890 Lab Director: Bryan Moody MD#### LIPR ####[facility] [place] [address] Lab Director: Aleksey Deleon MD Urea nitrogen [Mass/Vol] 12 mg/dL Normal 8-23 [facility] Comment on above: Performed By: #### M G, TSHX, ZFAST, CP, CDP ####[facility] [address] [place], [place] [phone] Lab Director: Bryan Moody MD#### LIPR ####[facility] [place] [address] Lab Director: Aleksey Deleon MD Comprehensive Metabolic Pane [facility] 10-27-2022 Albumin [Mass/Vol] 3.8 g/dL 3.5 - 5.2 g/dL [facility] ALP [Catalytic activity/Vol] 122 U/L High 35 - 104 U/L [facility] ALT [Catalytic activity/Vol] 14 U/L 5 - 33 U/L [facility] Anion gap [Moles/Vol] 11 mmol/L 9 - 17 mmol/L [facility] AST [Catalytic activity/Vol] 11 U/L NINF - 32 U/L [facility] Bilirubin [Mass/Vol] 0.5 mg/dL 0.3 - 1.2 mg/dL [facility] Calcium [Mass/Vol] 9.3 mg/dL 8.6 - 10. 4 mg/dL [facility] Chloride [Moles/Vol] 105 mmol/L 98 - 107 mmol/L [facility] CO2 [Moles/Vol] 26 mmol/L 20 - 31 mmol/L [facility] Creatinine [Mass/Vol] 0.49 mg/dL Low 0.50 - 0.90 mg/dL [facility] GFR/1.73 sq M.predicted MDRD (S/P/Bld) [Vol rate/Area] - PINF [facility] Comment on above: These results are not intended for use in patients <18 years of age. eGFR results are calculated without a race factor using the 2020 CKD-EPI equation. Careful clinical correlation is recommended, particularly when comparing to results calculated using previous equations. The CKD-EPI equation is less accurate in patients with extremes of muscle mass, extra-renal metabolism of creatine, excessive creatine ingestion, or following therapy that affects renal tubular secretion. Glucose [Mass/Vol] 91 mg/dL 70 - 99 mg/dL [facility] Interpretation and review of laboratory results Abnormal [facility] Potassium [Moles/Vol] 3.9 mmol/L 3.7 - 5.3 mmol/L [facility] Protein [Mass/Vol] 6.4 g/dL 6.4 - 8.3 g/dL [facility] Sodium [Moles/Vol] 142 mmol/L 135 - 144 mmol/L [facility] Urea nitrogen [Mass/Vol] 12 mg/dL 8 - 23 mg/dL [facility] Urea nitrogen/Creatinine (Bld) [Mass ratio] 24 High 9 - 20 [facility] Lipid Panelon 10-27-2022 Cholesterol [Mass/Vol] 222 mg/dL High NINF - 200 mg/dL [facility] Comment on above: Cholesterol Guidelines: <200 Desirable 200-240 Borderline >240 Undesirable Cholesterol in HDL [Mass/Vol] 61 mg/dL 40 - PINF mg/dL [facility] Comment on above: HDL Guidelines: <40 Undesirable 40-59 Borderline >59 Desirable Cholesterol in LDL [Mass/Vol] 134 mg/dL High 0 - 130 mg/dL [facility] Comment on above: LDL Guidelines: <100 Desirable 100-129 Near to/above Desirable 130-159 Borderline >159 Undesirable Direct (measured) LDL and calculated LDL are not interchangeable tests. Cholesterol.total/Ch olesterol in HDL [Mass ratio] 3.6 {ratio} NINF - 5 [facility] Interpretation and review of laboratory results Abnormal [facility] Triglyceride [Mass/Vol] 137 mg/dL NINF - 150 mg/dL [facility] Comment on above: Triglyceride Guidelines: <150 Desirable 150-199 Borderline 200-499 High >499 Very high Based on AHA Guidelines for fasting triglyceride, May 2012. [facility] Lipid Profileon 10-27-2022 Cholesterol [Mass/Vol] 222 mg/dL High <200 [facility] Comment on above: Result Comment: Cholesterol Guidelines: <200 Desirable 200-240 Borderline >240 Undesirable Performed By: #### M G, TSHX, ZFAST, CP, CDP ####[facility] Sae[address] [place] [address] Lab Director: Bryan Moody MD#### LIPR ####[facility] [address] [place], [place] [phone] Lab Director: Aleksey Deleon MD Cholesterol in HDL [Mass/Vol] 61 mg/dL Normal >40 [facility] Comment on above: Result Comment: HDL Guidelines: <40 Undesirable 40-59 Borderline >59 Desirable Performed By: #### M G, TSHX, ZFAST, CP, CDP ####[facility] Csc[address] [place], [place] 1167790 lab Director: Bryan Moody MD#### LIPR ####[facility] [address] [place], [place] [phone] Director: Aleksey Deleon MD Cholesterol in LDL [Mass/Vol] 134 mg/dL High 0-130 [facility] Comment on above: Result Comment: LDL Guidelines: <100 Desirable 100-129 Near to/above Desirable 130-159 Borderline >159 Undesirable Direct (measured) LDL and calculated LDL are not interchangeable tests. Performed By: #### M G, TSHX, ZFAST, CP, CDP ####[facility] Vjx[address] [place], [place] [phone] Director: Bryan Moody MD#### LIPR ####[facility] [address] [place], [place] [phone] Director: Aleksey Deleon MD Cholesterol.total/Ch olesterol in HDL [Mass ratio] 3.6 {ratio} Normal <5 [facility] Comment on above: Performed By: #### M G, TSHX, ZFAST, CP, CDP ####[facility] Bvg7972 [place] [address] Lab Director: Bryan Moody MD#### LIPR ####[facility] [address] [place], [place] [phone] Director: Aleksey Deleon MD Triglyceride [Mass/Vol] 137 mg/dL Normal <150 [facility] Comment on above: Result Comment: Triglyceride Guidelines: <150 Desirable 150-199 Borderline 200-499 High >499 Very high Based on AHA Guidelines for fasting triglyceride, May 2012. Performed By: #### M G, TSHX, ZFAST, CP, CDP ####[facility] Gmf3957 [place], [place] [phone] Director: Bryan Moody MD#### LIPR ####[facility] [address] [place], [place] [phone] Director: Aleksey Deleon MD Magnesiumon 10-27-2022 Magnesium [Mass/Vol] 1.9 mg/dL Normal 1.6-2.6 [facility] Comment on above: Performed By: #### M G, TSHX, ZFAST, CP, CDP ####[facility] [address] [place], [place] [phone] Lab Director: Bryan Moody MD#### LIPR ####[facility] [address] [place], [place] 8572108 Lab Director: Aleksey Deleon MD Magnesium [Mass/Vol] 1.9 mg/dL 1.6 - 2.6 mg/dL [facility] No Panel Informationon 10-27 [facility] Patient Fasting?on 3 Patient Fasting? YES [facility] Patient fasting?on 3 Patient fasting? YES Normal [facility] Comment on above: Performed By: #### M G, TSHX, ZFAST, CP, CDP #### [facility] [address] [place] [address] Lapidary Apprentice: Bryan Moody MD #### LIPR #### [facility] [address] [place], [place] 9923608 Lapidary Apprentice: Aleksey Deleon MD TSH w/reflex to FT4on 2022 Thyroid Stim. Horm. 1.38 uIU/mL Normal 0.30-5.00 [facility] Comment on above: Performed By: #### M G, TSHX, ZFAST, CP, CDP ####[facility] [address] [place] [address] Lab Director: Bryan Moody MD#### LIPR ####[facility] [place], [place] 4772608 Lab Director: Aleksey Deleon MD TSH with Reflexon 10-27-2022 TSH Qn 1.38 m[IU]/L [facility] Blood Bank Slipon 10-18-2022 Blood Bank Slip [id number]#1.00 CD:127 Normal [facility] Consent for Anesthesiaon Consent for Anesthesia [id number]#1.00 CD:127 Normal [facility] IntraOperative Documentson 0 10-14-2022 IntraOperative Documents [id number]#1. 00CD:127 Normal [facility] Coding Summary.on 10-11-2022 Coding Summary. CD:[id number] Gh 0bWw+PGhlYWQ+FC0GIFVmW 68shENkvE5qQ9RCUCbGTrd uPPVZSMaRAzWhdjCeQK6bd XNjZXJu IC8+QS7mWHTkQhtdnAUab1 Z3eLH1N94yxd4bMHqiyIJ6 RFQoZkEucddvp0tynLh6BX cuNmluOyBt BMGvsO40MDP8aO06In19lN XsrNBil1omgHj9HwYjJFNs AGN9qXtkAMemz7GqSOBaP6 4rmQMci3E8 ETNbdFkhfHVxYbAsuVH8cC 7mKKqlxxejr1tbcungCjr4 vy93kAElv2M0tIU8V3Tmky M2DNBpgVNa CxhdmDFMzO7nbqfyj9glxl yqVkAhSCSeQLh1RQi6PFUb eQnxBvOkRW69THY8MEGfll EiK1LmPAFr hDtoLbM0l9X2Az5IB5EDJb wcK6MCFMFXJLmahMX+PC90 fs36U6TeTalrPeg3QIRmQX K3nIX7bV5k SHNrAHcqn7V1wOY6H8Kebt Idyv8tb7boTCDjYEowH01r wXOqd0D1IFEubKC2PBYjiN wzMjFrkD44 Oyc+BCOqmXglu7CsMhcov1 fkj2urxWs2MdbgUXOokvIs cWuxRVN3i3UiBp2sDMGcrN J2oZI8sG7x LoYgVmC2CZzsH418ZpZgaF VuRzesW85aM6NhwUA+PHRy Xlh9ISZzxJueHC2vM7VpOC RpbmctbGVm iUdvUX6mJOLwfgdqDKFutD 4jCYHtX1m6KnYsLsP7LCzt E5VbMYFiunqjWq73nP4mTa RcOeT6YBce J8KinzR0ADXomVPsCLpbBB P3O51li8J1WNGvROBcNJA4 yGI0aH4jtUvfulejoPSoeC sgdmVydGlj OJreCMiwT831FDCrqWvuEq NvZGluZyBEYXRlOiAgMDMv MTMvMjAyMzwvdGQ+PHRkIH T9zOtcUWNq bBQpAJogYt6wcKqyhKwxRI 1cHMPwnjqcXRJksD8nGAPb xWTnvVkkMW7kIDFsxdmyb1 15DqMpAUF1 LDOwxGQsF3VqsT2eCjMbYO JtTSBfA3BchCPlOPruI880 ZYfpKiB4RYLkruGvZ2KkRG FsaWduOiB0 d7J6Af9Mi2ZzteigA9KgkQ ReKvUjFcbaGOl4B3BhXohw dHI+FG16IESjWG27CWa8NB D4oBkoOTew GTAlI3NmhX8mTaWcLPScMU RkOyc+PHRhYmxlIHdpZHRo YUrnFPGiMfSmqFavPB6xAo 9yZGVyLWNv xHqryJLcBaDhe2czJJVmBX vrDN8oiEnnP7VoxVH3CSFu q7h7Cf38K66iE5EibPU+PG IvbEZ0xDN9 iW8nHuXgCpD1XGwjI093Fn PifJBsBsjhc2jow6uxdGf7 XlQ2QRByypZxfTffEQC9m1 EsZx23H15y IHdpZHRoPSIxNSUiIHZhbG ckfg4ljK6kFg7+PGNvbCB3 oKY5dV5aVdQcJjD6FPruS0 49InRvcCIv Eljes3ofk7iijEs9XoUxED LhurPsgVldUKI5l9VbPv26 Y2KipHdkp3ShXhi7jf60pC Tye6Z4oTD8 O2AyWHFrfidawKFvpEmdLC 0rVBZtucvdBHKzcS3oKQFh R8p0UdJlKuG8OLwoR4Wqck T1BOFbsZUa LGLrdEAWwL1yvyczj7yemx ukYtWyCXGfMLx9UXi4UXMo sHnjCeQaFOF1IjB0QDD2iX DatT8wvUpn dgudjE7zEbj+SKG5vWUvtX DBMW2rLlvoaUR+PHRkIHN0 mWrzHZucMEBhaM3mLFGnC7 y6KjMnTqY2 IAdlR4RmfcS1OSDvnXOrCS JkeQCUdM9gvgxrt7snqejl BvBdHVIlMWd3FKw4BHUatT duOiBsZWZ0 BuE0OTB7wPIzkK0xwSpnjp nxyV7qOza+QmlydGggRGF0 DLb6P4DeDyh0OYBhsGuvVO 0ncGFkZGlu Ci6akKajvEroRF8gGEAuoi bqd131XnExh2ldWYFxnEZo BOmmDJV1K84xx9P2KHTgKT KbVPQ7pGY5 qG3mwJozgnmpvLVncVesmx KjzVwxECqaAEqwU219TWQg bIakTwOkXBm4O9SvJma4KC SdeJzyRC6j hAQjXOvnWk3snKbbiHpsIK 1yVVLewueex340EuNdk4us HIZtuYHrCRuxDUN8W78or8 E8XTTdZHJs GKI5jWI4uR2uvXtnxzcwfC VmdDsgdmVydGljYWwtYWxp O675MEEzxPhhJpWdiIv8K8 UrBha0TVPw qUetYS9vkPZtMPgcKt1vbH fdgFnoHE7mFDGtxgtnj914 YbAmx7qgJMVkjFYqPVcqAB L4W64jt9F3 ZPSlTLVpMUD4yGP4hE7qiX lnbjogbGVmdDsgdmVydGlj XUzdYUbdG794HIVmrWdpFp BhdGllbnQg BZklPRy3E2LxFvgogII+PC 66PMKsTQ16sMRspIXng6mc zMw1CdRvZKXoXIM7hAoxXY hzm6EyAXOq K32reWNof8H3EHTebNmuvL StRgZeoOY5kH1bXWeiucea m3uorwqyNesed2urak69bA 15X46dAVyv ZHRoPSIzMCUiIHZhbGlnbj 0yhU0qWi9+JVUedPQ5aMU7 lW4gSYCuRmH7IYjhT166Ds RvcCIvPjxj o9jzq6ooaEk7SeF0LLVbsu DbnSfxBVH9q5XxPx03W35x IHdpZHRoPSIyMCUiIHZhbG xwqk1foP1d Ii8+GIOliJE1uMR1tH1hQm JwGnN3ZWfqG957SzFmfRSe BanoZ01jK8SxhRC+PHRyPj o6UJKsoVwf JM6wmOAlVWteTc5ePGJ8Tr ArKtGmBIkcD9IcJXNvrkxg clhveRN9XMSiQWYqsC21Xd 9udDogMTBw xPEAyL5yctohi4nswpcxCc CqSJFrFSa2LLn7YRLyaBpl HfToQKE1OwE0MOR5jVLzwR 1hbGlnbjog wC0gK9QtWFAnvpalOf63lA 6fNhIiZvU2KEcmTkm+UElO ZKxrT1iJDKiDQYKLLB82YK 90mIDwq9A5 hAI4I4XgEPIlnqaotpuavV B6KDFnKQPjtF39gFXzQTxv Uw9pi4B0q114LWLdCEMoyA 64Bf1hyLoe MALgmDOFrO4ovhupp6otqd leAvEfOSZbSVk9QOc8VOZa nUfcIiKjFSH3AiG0GSQ7yL CquK1lxTss injdtB2yGis+MDcvMjEvMT h7HwhcqWK+AUKmZMG4bDiq ZZcjANMzcN8gXRPrH4l1Tr PiFrU7NNfx R3EjTGUxafhaFe32dT3iCd OaOxW5LDzvU2SuvoR1JFJm cJFpTEjyXPK4Q68ii6J8XV MwMDAwMDA7 mNB1jW6efJloakcgbPSqyI wcrgIbaUmiECsaBQtpZ725 CFIpqNerAfx8DMgpGEDtXI 80OU72oFJn e1H8jTM6V4JcJMGbdwczas dtvRW1NASoOKXnkH50uTXb KCocRs2bw7C8l980KDAkOW UpmM52Ki4c oOtlVSOboDIIcA5aadedc3 msmvofKjJeTWWmMWw6BDw1 SIMzoHphJdIjFCN6QnG3OA I4dZVvgG8l uLgfwriolX1zNjd+RmVtYW lqSL64NR25rSYfh0E7qHM0 M9QvWQWlphpbklfgeDN3VZ LnKTNdkH42 iYQqNOvzEm1ag6J5g297HE ExAUSsaI20Io5emSanYVTi lWYXgI0cxkyrz4upyhbyHa AwMDAwMDt0 SNe8RTUiqMjbQmBiXRP1Wz V8RJD4vDJdgL0nzEvevbdy iS4gNhj+UT0wnNxoiI1zyK 8XRF4yORWl tSJUgRSyXKP4ZP29NP28A0 RyPjwvdGFibGU+PHRhYmxl IHdpZHRoPScxMDAlJyBzdH tcPP7aTl0v ZGVyLWNvbGxhcHNlOiBjb2 iqANUgVKlrEW9shDtaF6Wf xLI2SGUfr1v1Gr17O76iS7 JvdXA+PGNv yBG9rDH9aD1rGvKkUvQ5DA nuX006MiGhxRDaStlow2ds o7ptuLn5GkLkYJQnglUtaM tvJMN2a1Iv Lv42T85lVOqsQEJbQSNeDS RjDISamIgpqy4bcO8uZz5+ NMHfwGN5tGI0zL6wYbKxFc L1FHqqT878 XzOrxDBdQbhnW32hX0PvwB A+MOAuLsc7JSEulXsaGN6e qDWaGKbqPl9aRRS1ZeNpEv SbYQvpV4Pi IZSzxdsfxajdeZN7VOJnGB ImgP18Wn5qeYvrHj4nPELm ZHG3IOQuiPHuB1IfiA8uPz AjMDAwMDAw K4RyhZHpVBksZ907DOulAu H5RTMfqnErA2JeKOMnhTil LwI0k9Y4Fm1InBcehHVoOD 4fZiDhWEk8 B0DyLab4OHVxaIiiBG3clZ KbKKmeWc9fdKdffNgmIK4i AGZbsvrhp909GnCmk8ugFA EwcHQgVGlt AZA6T95kw0F1ZOAuBABzGK F6wWM1kD2xpVljxafqnRWt dDsgdmVydGljYWwtYWxpZ2 46IHRvcDsn DlKMIrl3S3RiBfh9OEUuuC kfUY4awBGoBOwpRs2fePra mRioOM0fYVVsikoai474Yv Bsi2znIOCo oMAaJGeoFHI8L10ld4E1PF OcSDMeLOS4mAR7tI9thYho bjogbGVmdDsgdmVydGljYW lsKHjkO141 SVOjmGgtZn3UOhu8I6RjLa k5XQTjwZqbKZ8ziESsXJqx Ny8bfSdfnYjdGZ4fJBXwuh frb517YhYy x9gyYLHhbESwRFacWPN0V7 6zy9Y8SIBpESNvVSB3vJK0 sV6iyQhdvvzngVZhwVkrqo VydGljYWwt PWyvJ291OKYviGdqXwGyeV VyOjwvdGQ+ME47je84W7Wp OljqCpq2PTUvXHN1kDH9eY 0nMTAwJScg c3R5 (more content not included)... Normal [facility] Main OR Intraoperative Recor don 10-11-2022 Main OR Intraoperative Record IntraOp Document Type FT Summary Primary Physician: Evan Pruett DO Finalized Date/Time: 10/11/22 10:06:30 Pt. Name: PASTOR NAHEDMICHELLE Harden/Sex: 1945 Female Med Rec #: [id number] Physician: Evan Pruett DO Financial #: [id number] Pt. Type: O Room/Bed: N318/01 Admit/Disch: 10/06/22 10:23:00 - 10/07/22 10:41:00 Institution: Case Times FT Entry 1 Patient Times In Room 10/06/22 12:36:00 Out Room 10/06/22 14:33:00 Procedure Times Start 10/06/22 13:10:00 Stop 10/06/22 14:23:00 Anesthesia Times Start 10/06/22 12:36:00 Stop 10/06/22 14:33:00 Block Timeout w10/06/22 12:00:00 Anesthesia Last Modified By: Eli Almanza CST 10/11/22 10:02:51 General Comments: block by Dr Thomas, assisted by Linda Flaherty RN. no complications, spo2 94% on room air, heart rate 74. patient taken back to [facility] to await departure to OR. spo2 monitoring resumed. handoff communication given to [facility] nurse. carlie murrell 10/11/22 Chart opened to review and send charges [facility] CSFA Case Attendance FT Entry 1 Entry 2 Entry 3 Case Attendee Nataliya FIRE PREVENTION OFFICER, Hugo Pruett DO, Evan Solano LOGISTICS OPERATIONS MANAGER, Rell Role Performed FIRE PREVENTION OFFICER Surgeon - Primary LOGISTICS OPERATIONS MANAGER/SA Time In 10/06/22 12:36:00 10/06/22 12:55:00 10/06/22 12:36:00 Time Out 10/06/22 14:33:00 10/06/22 14:02:00 10/06/22 14:33:00 Procedure SHOULDER TOTAL SHOULDER TOTAL SHOULDER TOTAL ARTHROPLASTY(Left) ARTHROPLASTY(Left) ARTHROPLASTY(Left) Comments dr thomas supervising. out of room [id number] Last Modified By: Reynold RN, Linda Flaherty RN, Linda Flaherty RN, Linda Genao 10/06/22 14:33:20 10/06/22 14:33:20 10/06/22 14:33:20 Entry 4 Entry 5 Entry 6 Case Attendee Reynold NOEL, Linda Zimmerman LOGISTICS OPERATIONS MANAGER, Kang Delcid Role Performed Tailercpa - Primary Scrub - Primary Staff - Other Time In 10/06/22 12:36:00 10/06/22 12:36:00 10/06/22 12:36:00 Time Out 10/06/22 14:33:00 10/06/22 14:33:00 10/06/22 14:00:00 Procedure SHOULDER TOTAL SHOULDER TOTAL SHOULDER TOTAL ARTHROPLASTY(Left) ARTHROPLASTY(Left) ARTHROPLASTY(Left) Comments 2nd scrub Last Modified By: Reynold RN, Linda Flaherty RN, Linda Flaherty RN, Linda Genao 10/06/22 14:33:20 10/06/22 14:33:20 10/06/22 14:33:20 Entry 7 Entry 8 Entry 9 Case Attendee Keren Rivas Jr DO, Manjinder Flanagan Role Performed Staff - Other Anesthesiologist of Staff - Other Record Time In 10/06/22 12:36:00 10/06/22 13:00:00 10/06/22 12:36:00 Time Out 10/06/22 14:33:00 10/06/22 13:18:00 10/06/22 13:05:00 Procedure SHOULDER TOTAL SHOULDER TOTAL SHOULDER TOTAL ARTHROPLASTY(Left) ARTHROPLASTY(Left) ARTHROPLASTY(Left) Comments 3rd scrub Last Modified By: Linda Flaherty RN, RN, Linda Mott RN 10/06/22 14:33:20 10/06/22 14:33:20 10/06/22 14:33:20 Entry 10 Case Attendee Cami BAR, Eli Kaur Role Performed Staff - Other Time In 10/06/22 12:36:00 Time Out 10/06/22 13:00:00 Procedure SHOULDER TOTAL ARTHROPLASTY(Left) Comments Last Modified By: Linda Flaherty RN 10/06/22 14:33:20 General Comments: jericho denson and bonny garvin, arthrex reps, also in attendance. carlie murrellinternship Protocols FT Pre-Care Text: Implements protective measures prior to operative or invasive procedure, confirms identity before the operative or invasive procedure, verifies operative procedure, surgical site, and laterality Entry 1 Procedure(s) SHOULDER TOTAL Patient Identity Birthday, Blood Band, ARTHROPLASTY(Left) Verified (select at ID Band Check least 2): Consents / H and P Anesthesia Consent, Operative Site Present Verified HandP, Surgery/Procedure Marking Verified Consent, Transfusion Consent Surgical Site Yes Laterality Verified Yes Verified Procedure Verified Yes Correct Patient Yes Position Verified Availability Equipment, Implant, Prep Dry n/a Verified (If Medication Applicable) PreOp Antibiotic Yes Time Out Evan Pruett DO, Given Participants Russ BAR, Reynold Zacarias RN, Elsie Gillis CST, Nat Gibson Kendall R, Keren Rivas, Dudley Thomas Jr, DO Time Out Complete 10/06/22 13:08:00 Outcomes Met? Yes Last Modified By: Linda Flaherty RN 10/06/22 13:20:56 Post-Care Text: The patient is free from signs and symptoms of injury caused by extraneous objects Allergy Information FT Pre-Care Text: Verifies allergies Entry 1 Allergies Reviewed? Yes Allergies Reviewed Self/Patient With Outcomes Met? Yes Last Modified By: Linda Flaherty RN 10/06/22 09:49:45 Post-Care Text: The patient received appropriate medication(s) safely administered during the perioperative period Surgical Procedures FT Entry 1 Procedure Description Procedure SHOULDER TOTAL Modifiers Left ARTHROPLASTY Surgeon Description LEFT REVERSE TOTAL SHOULDER ARTHROPLASTY Primary Procedure Yes Primary Surgeon Evan Pruett DO Start 10/06/22 13:10:00 Stop 10/06/22 14:23:00 Anesthesia Type General Surgical Service Orthopedics Wound Class 1 - Clean Last Modified (more content not included)... Normal [facility] Operative Reporton Operative Report Patient: RONNELL PETERSON Age: 77 years Sex: Female : 1945 Associated Diagnoses: None Author: Dudley Thomas Jr, DO Postoperative Information Date/ Time: 10/06/2022 12:00:00 Preoperative Diagnosis: Acute postoperative pain.. Postoperative Diagnosis: Acute postoperative pain, per surgeon request. Procedure: Interscalene nerve block. Anesthesia Method: Local, Monitored anesthesia care. Performed by: Dudley Thomas Jr, DO. Medications: Midazolam 2 mg. Complications: None. Notes: The patient was interviewed and examined prior to the planned operation. Anesthesia options were discussed including peripheral nerve block of the brachial plexus in the interscalene region for postoperative analgesia. This discussion included a description of the procedure, risks and benefits, as well as alternatives to the block. The patients questions were addressed and the patient elected to proceed with preoperative interscalene administration of local anesthetic agent. The patient was placed in the recumbent position and monitored with continuous pulse oximetry, non-invasive blood pressure, and electrocardiography. Following time-out, the patient's pertinent anatomic landmarks were identified and marked with a felt-tipped pen before the procedure. The lateral neck and upper shoulder were prepped with ChloraPrep and sterilely draped. A 25 gauge x 1 3/8 Stimuplex needle was introduced under ultrasound guidance with stimulator attached and operating. The patient was questioned intermittently and reported no paresthesias. Loss of twitch was observed at _0.3_ mA. With the needle held in place, and with intermittent attempts for aspiration of blood, _18_ cc of 0.5% Ropivacaine WITH 4MG OF DECADRON was slowly introduced. No signs or symptoms of intravascular injection were evidenced. The injection demonstrated a positive Kieran test. The patient tolerated the procedure well. The patient was then induced for general anesthesia and preparations for the proposed operation continued., per surgeon request for post-op pain management. [facility] Comment on above: Result Comment: Elec tronically Signed By: Dudley Thomas Jr, DO\.br\Date and Time Signed: 10/08/22 07:06 EST Progress Note-Physicianon Progress Note-Physician Patient: NAHED PETERSON Age: 77 years Sex: Female : 1945 Associated Diagnoses: None Author: Dudley Thomas Jr, DO Preoperative Information Time patient last ate or drank:=== (npo 8 hours) Anesthesia history: Patient history: No prior anesthesia problems. Re-evaluation prior to induction: Completed, Initial evaluation reviewed. Review of Systems Respiratory: No shortness of breath. Cardiovascular: No chest pain. Hematology/Lymphatics: No bruising tendency, No bleeding tendency. Health Status Allergies: Allergic Reactions (All) Moderate MetFORMIN- Diarrhea. Tobradex- Orbital edema and blisters. Zocor- Aching 4 statins tried. Mild Oxybutynin- Blisters and orbital edema. Severity Not Documented AmLODIPine Besylate- Hypotension. Amoxicillin- Allergic skin rash. Augmentin- Nausea. Neosporin ophthalmic ointment- Rash. Tape- Adhesive and rash. Nonallergic Reactions (All) Moderate Fosamax- Joint pain. TraMADol- Abdominal pain. Canceled/Inactive Reactions (All) Severe Neomycin- Used in eye-- became swollen and red. Severity Not Documented Alendronate- Myalgia. No Known Medication Allergies Current medications: (Selected) Inpatient Medications Ordered Cardizem 60 mg Tab: 60 mg = 1 tab(s), Tab, Oral, TID, Routine, Start date 10/06/22 14:00:00 EST Colace 100 mg Cap: 100 mg = 1 cap(s), Cap, Oral, BID, Routine, Start date 10/06/22 21:00:00 EST, 10/06/22 10:53:00 EST Cymbalta 30 mg Cap-DR: 30 mg = 1 cap(s), Cap-DR, Oral, Daily, Routine, Start date 10/07/22 9:00:00 EST Dulcolax 5 mg Tab-EC: 10 mg = 2 tab(s), Tab-EC, Oral, Daily PRN Constipation, Routine, Start date 10/08/22 10:53:00 EST, 10/08/22 10:53:00 EST Insulin Lispro Sliding Scale: 0-10 units, Injection-Insulin, SubCutaneous, QIDACHS, Routine, Start date 10/06/22 11:30:00 EST Lactated Ringers IV Laurence 1000 mL 1,000 mL: 1,000 mL, IV, 150 mL/hr, Routine, Start date 10/06/22 10:30:00 EST, 6.7 hour(s), Total volume (mL): 1,000, 113.4 kg, 2.24, m2 Lactated Ringers IV Laurence 1000 mL 1,000 mL: 1,000 mL, IV, 80 mL/hr, Routine, Start date 10/06/22 10:53:00 EST, 12.5 hour(s), Total volume (mL): 1,000, 113.4 kg, 2.24, m2 Lovenox 40 mg/0.4 mL SC Laurence: 40 mg = 0.4 mL, Injection, SubCutaneous, Daily for 10 day(s), Stop date 10/17/22 8:59:00 EDT, Routine, Start date 10/07/22 9:00:00 EST, Start in AM postop day 1, 10/07/22 9:00:00 EST Milk of Magnesia 8% Susp-Oral: 30 mL, Susp-Oral, Oral, BID PRN Constipation, Routine, Start date 10/06/22 10:53:00 EST Nozin 62% Bottle - POSTOP: 6 drop(s), Soln-Nasal, Nasal, BID, Routine, Start date 10/06/22 21:00:00 EST Pantoprazole [address] Tab: 40 mg = 1 tab(s), Tab-DR, Oral, Daily, Routine, Start date 10/07/22 9:00:00 EST, 10/06/22 10:53:00 EST Vitamin C 500 mg Tab: 500 mg = 1 tab(s), Tab, Oral, BIDWM, Routine, Start date 10/06/22 17:00:00 EST, 10/06/22 10:53:00 EST Zofran 4 mg/2 mL Injection: 4 mg = 2 mL, Injection, IV Push, q6hr PRN Nausea/Vomiting, Routine, Start date 10/06/22 10:53:00 EST, 10/06/22 10:53:00 EST acetaminophen 325 mg Tab: 975 mg = 3 tab(s), Tab, Oral, q6hr for 3 dose(s), Stop date 10/07/22 10:59:00 EST, Routine, Start date 10/06/22 17:00:00 EST, 10/06/22 17:00:00 EST atorvastatin 20 mg Tab: 20 mg = 1 tab(s), Tab, Oral, Daily, Routine, Start date 10/07/22 9:00:00 EST baclofen 10 mg Tab: 10 mg = 1 tab(s), Tab, Oral, TID PRN Muscle pain, Routine, Start date 10/06/22 10:54:00 EST carvedilol 12.5 mg Tab: 12.5 mg = 1 tab(s), Tab, Oral, BID, Routine, Start date 10/06/22 21:00:00 EST cefazolin additive + Sodium Chloride 0.9% intravenous solution 50 mL: 2 gram = 1 EA, IV Piggyback, q8hr for 2 dose(s), Stop date 10/07/22 2:59:00 EST, Routine, Start date 10/06/22 11:00:00 EST, 100 mL/hr, Infuse over 30 minute(s), 10/06/22 10:53:00 EST cefazolin additive + Sodium Chloride 0.9% intravenous solution 50 mL: 2 gram = 1 EA, Powder-Inj, IV Piggyback, PREOP, Routine, Start date 10/06/22 7:10:00 EST, 100 mL/hr, Infuse over 30 minute(s) doxepin 10 mg Cap: 10 mg = 1 cap(s), Cap, Oral, Once a day (at bedtime), Routine, Start date 10/06/22 21:00:00 EST ferrous sulfate 325 mg Tab: 325 mg = 1 tab(s), Tab, Oral, BIDWM, Routine, Start date 10/06/22 17:00:00 EST, 10/06/22 10:53:00 EST insulin glargine 100 units/mL SubQ Laurence 10 mL: 25 unit(s) = 0.25 mL, Injection-Insulin, SubCutaneous, BID, Routine, Start date 10/06/22 21:00:00 EST ketorolac 15 mg/mL Inj: 15 mg = 1 mL, Injection, IV Push, q6hr for 3 dose(s), Stop date 10/07/22 12:59:00 EST, Routine, Start date 10/06/22 19:00:00 EST, 10/06/22 19:00:00 EST levothyroxine 75 mcg (0.075 mg) Tab: 75 mcg = 1 tab(s), Tab, Oral, Daily, Routine, Start date 10/07/22 6:30:00 EST lisinopril 10 mg Tab: 10 mg = 1 tab(s), Tab, Oral, Daily, Routine, Start date 10/07/22 9:00:00 EST magnesium oxide 400 mg Tab: 400 mg = 1 tab(s), Tab, Oral, BID, Routine, Start date 10/06/22 21:00:00 EST morphine 2 mg/mL Inj: 2 mg = 1 mL, Injection, IV, q4hr PRN Pain 8-10 for 5 da (more content not included)... Normal [facility] Comment on above: Result Comment: Elec tronically Signed By: Dudley Thomas Jr, DO\.br\Date and Time Signed: 10/08/22 07:07 EST Progress Note-Physician Patient: NAHED PETERSON Age: 77 years Sex: Female : 1945 Associated Diagnoses: None Author: Dudley Thomas Jr, DO Postoperative Information Postoperative disposition: Postoperative disposition: To PACU. Optimetrix number: Optimetrix number [id number]. Anesthetic utilized: General. Health Status Allergies: Allergic Reactions (Selected) Moderate MetFORMIN- Diarrhea. Tobradex- Orbital edema and blisters. Zocor- Aching 4 statins tried. Mild Oxybutynin- Blisters and orbital edema. Severity Not Documented AmLODIPine Besylate- Hypotension. Amoxicillin- Allergic skin rash. Augmentin- Nausea. Neosporin ophthalmic ointment- Rash. Tape- Adhesive and rash. Nonallergic Reactions (Selected) Moderate Fosamax- Joint pain. TraMADol- Abdominal pain. Physical Examination Vital Signs 10/06/2022 15:23 EST Temperature Temporal Artery 36.6 DegC Heart Rate Monitored 71 bpm Respiratory Rate Monitored 14 br/min Systolic Blood Pressure 168 mmHg HI Diastolic Blood Pressure 75 mmHg SpO2 95 % 10/06/2022 15:20 EST Heart Rate Monitored 68 bpm Respiratory Rate Monitored 12 br/min Systolic Blood Pressure 168 mmHg HI Diastolic Blood Pressure 81 mmHg SpO2 95 % 10/06/2022 15:05 EST Heart Rate Monitored 72 bpm Respiratory Rate Monitored 12 br/min Systolic Blood Pressure 163 mmHg HI Diastolic Blood Pressure 74 mmHg SpO2 97 % 10/06/2022 14:50 EST Heart Rate Monitored 71 bpm Respiratory Rate Monitored 18 br/min Systolic Blood Pressure 158 mmHg HI Diastolic Blood Pressure 70 mmHg SpO2 94 % 10/06/2022 14:45 EST Heart Rate Monitored 73 bpm Respiratory Rate Monitored 19 br/min Systolic Blood Pressure 153 mmHg HI Diastolic Blood Pressure 72 mmHg SpO2 97 % 10/06/2022 14:40 EST Heart Rate Monitored 72 bpm Respiratory Rate Monitored 15 br/min Systolic Blood Pressure 158 mmHg HI Diastolic Blood Pressure 71 mmHg SpO2 96 % 10/06/2022 14:34 EST Temperature Temporal Artery 36.4 DegC Heart Rate Monitored 76 bpm Respiratory Rate Monitored 16 br/min Systolic Blood Pressure 160 mmHg HI Diastolic Blood Pressure 70 mmHg SpO2 96 % Pain Assessment: Controlled. General: Awake, Alert, Appropriate. Respiratory: Adequate air exchange. Cardiovascular: Stable, Normal peripheral perfusion. Neurological: Normal sensory function, Normal motor function. Assessment Anesthetic outcome No anesthetic complications noted. Adequate pain relief. able to void without difficulty, able to ambulate with assist, tolerating PO intake, no N/V. Review / Management Condition: Stable. Plan Transfer/Discharge: Transfer/Discharge Discharge when meets criteria ( From PACU to floor ). Normal [facility] Comment on above: Result Comment: Elec tronically Signed By: Dudley Thomas Jr, DO\.beau\Date and Time Signed: 10/08/22 07:06 EST Auto Diffon 10-07-2022 Basophils/100 WBC (Bld) 0.2 % Normal 0.0-2.0 [facility] Comment on above: Order Comment: Order Added by Discern Expert. Performed By: #### 2 [id number] #### [facility] [address] [place] [address] Basophils/Leukocytes Auto (Bld) [Pure # fraction] 0.0 E9/L Normal 0.0-0.2 [facility] Comment on above: Order Comment: Order Added by Discern Expert. Performed By: #### 2 [id number] #### [facility] [address] [place] [address] Eosinophils/100 WBC (Bld) 0.0 % Normal 0.0-8.0 [facility] Comment on above: Order Comment: Order Added by Discern Expert. Performed By: #### 2 [id number] #### [facility] [address] [place] [address] Eosinophils/Leukocyt es Auto (Bld) [Pure # fraction] 0.0 E9/L Normal 0.0-0.5 [facility] Comment on above: Order Comment: Order Added by Discern Expert. Performed By: #### 2 [id number] #### [facility] [address] [place] [address] Lymphocytes/100 WBC (Bld) 8.3 % Low 14.0-50.0 [facility] Comment on above: Order Comment: Order Added by Discern Expert. Performed By: #### 2 [id number] #### [facility] [address] [place] [address] Lymphocytes/Leukocyt es Auto (Bld) [Pure # fraction] 0.9 E9/L Low 1.0-4.0 [facility] Comment on above: Order Comment: Order Added by Discern Expert. Performed By: #### 2 [id number] #### [facility] [address] [place] [address] Monocytes/100 WBC (Bld) 8.4 % Normal 4.0-14.0 [facility] Comment on above: Order Comment: Order Added by Discern Expert. Performed By: #### 2 [id number] #### [facility] [address] [place] [address] Monocytes/Leukocytes Auto (Bld) [Pure # fraction] 0.9 E9/L Normal 0.2-1.0 [facility] Comment on above: Order Comment: Order Added by Discern Expert. Performed By: #### 2 [id number] #### [facility] [address] [place] [address] Neutrophils/100 WBC (Bld) 83.1 % High 36.0-75.0 [facility] Comment on above: Order Comment: Order Added by Discern Expert. Performed By: #### 2 [id number] #### [facility] [address] [place] [address] Neutrophils/Leukocyt es Auto (Bld) [Pure # fraction] 8.7 E9/L High 2.0-7.5 [facility] Comment on above: Order Comment: Order Added by Discern Expert. Performed By: #### 2 [id number] #### [facility] [address] [place] [address] BUNon 10-07-2022 Urea nitrogen [Mass/Vol] 19 mg/dL Normal 5-21 [facility] Comment on above: Performed By: #### 2 [id number] #### [facility] [address] [place] [address] Blood Bank Slipon 10-07-2022 Blood Bank Slip [id number]. [id number]:127 Normal [facility] CBC w/ Auto Diffon Erythrocyte distribution width (RBC) [Ratio] 14.8 % High 10.9-14.2 [facility] Comment on above: Performed By: #### 2 [id number] #### [facility] [address] [place] [address] Hematocrit (Bld) [Volume fraction] 37.4 % Normal 34.0-46.0 [facility] Comment on above: Performed By: #### 2 [id number] #### [facility] [address] [place] [address] Hemoglobin (Bld) [Mass/Vol] 12.6 g/dL Normal 12.0-16.0 [facility] Comment on above: Performed By: #### 2 [id number] #### [facility] [address] [place] [address] MCH (RBC) [Entitic mass] 30.1 pg Normal 27.0-34.0 [facility] Comment on above: Performed By: #### 2 [id number] #### [facility] [address] [place] [address] MCHC (RBC) [Mass/Vol] 33.6 g/dL Normal 31.4-36.0 [facility] Comment on above: Performed By: #### 2 [id number] #### [facility] [address] [place] [address] MCV (RBC) [Entitic vol] 89.6 fL Normal 80.0-100.0 [facility] Comment on above: Performed By: #### 2 [id number] #### [facility] [address] [place] [address] Platelet mean volume (Bld) [Entitic vol] 7.4 fL Normal 6.4-10.8 [facility] Comment on above: Performed By: #### 2 [id number] #### [facility] [address] [place] [address] Platelets (Bld) [#/Vol] 248.0 E9/L Normal 150.0-500.0 [facility] Comment on above: Performed By: #### 2 [id number] #### [facility] [address] [place] [address] RBC (Bld) [#/Vol] 4.2 E12/L Low 4.3-5.9 [facility] Comment on above: Performed By: #### 2 [id number] #### [facility] [address] [place] [address] WBC corrected for nucl RBC Auto (Bld) [#/Vol] 10.5 E9/L Normal 4.0-11.0 [facility] Comment on above: Performed By: #### 2 [id number] #### [facility] [address] [place] [address] CHEMISTRYOrdered By: Lab ROP User on 10-07-2022 Glucose [Mass/Vol] 242 mg/dL High 55 - 99 mg/dL [facility] C POC Subsection Comment on above: Result Comment: Evonne zhu RN/ POC Device SN [id number] Invalid Interpretation Code FT POC Subsection POC User ID [id number] Invalid Interpretation Code FT POC Subsection POC Username Leeann Case Invalid Interpretation Code [facility] POC Subsection CHEMISTRYOrdered By: SYSTEM SYSTEM on 10-07-2022 Anion gap [Moles/Vol] 12 mmol/L Normal 6 - 16 mEq/L FT Remisol Chloride [Moles/Vol] 102 mmol/L Normal 101 - 1 11 mmol/L FT Remisol CO2 [Moles/Vol] 24 mmol/L Normal 21 - 31 mmol/L FT Remisol Creatinine [Mass/Vol] 0.6 mg/dL Normal 0.5 - 1.3 mg/dL [facility] Remisol GFR/1.73 sq M.predicted among blacks MDRD (S/P/Bld) [Vol rate/Area] mL/min/1.73 m2 Normal >=59mL/min/1.73 m2 [facility] Chem S GFR/1.73 sq M.predicted among non-blacks MDRD (S/P/Bld) [Vol rate/Area] mL/min/1.73 m2 Normal >=59mL/min/1.73 m2 [facility] Chem S Potassium [Moles/Vol] 4.1 mmol/L Normal 3.5 - 5.3 mmol/L [facility] Remisol Sodium [Moles/Vol] 134 mmol/L Low 135 - 145 mmol/L [facility] Remisol Urea nitrogen [Mass/Vol] 19 mg/dL Normal 5 - 21 mg/dL [facility] Remisol Capillary Glucose POCon Glucose [Mass/Vol] 242 mg/dL High 55-99 [facility] Comment on above: Result Comment: Evonne zhu RN/ Performed By: #### 2 [id number] #### [facility] [address] [place] [address] Creatinineon 10-07-2022 Creatinine [Mass/Vol] 0.6 mg/dL Normal 0.5-1.3 [facility] Comment on above: Performed By: #### 2 [id number] #### [facility] [address] [place] [address] Discharge Instructionson Discharge Instructions [id number]. [id number]:127 Normal [facility] Discharge Note-Nursingon Discharge Note-Nursing NAHED PETERSON :1945 Visit Date:10/06/2022 Inpatient Discharge Instructions Your Care Team Admitting Physician - Evan Pruett DO Referring Physician - Evan Pruett DO Reason for Your Visit LEFT SHOULDER DJD Your Diagnosis Arthritis of shoulder region, left, degenerative Tests Performed ABO/Rh Antibody Screen Automated Diff BUN Capillary Glucose POC CBC w/ Auto Diff Creatinine eGFR Lytes XR Shoulder Complete Left This Is Your Medications List Misc Prescription (glucometer test strip) Mis Prescription (pen needles) Non-Formulary Medication (Vision Formula/Lutein) acetaminophen-oxycodon e (Percocet 5 mg-325 mg oral tablet) baclofen (baclofen 10 mg Tab) carvedilol (carvedilol 25 mg Tab) celecoxib (CeleBREX 100 mg Cap) cephalexin (Keflex 500 mg Cap) cetirizine (cetirizine 10 mg oral capsule) cholecalciferol (Vitamin D3) cyanocobalamin (Vitamin B12 1000 mcg Tab) diltiazem (Cardizem 60 mg Tab) docusate (Colace 100 mg Cap) doxepin (doxepin 10 mg Cap) duloxetine (Cymbalta 30 mg Cap-EC) ferrous gluconate (ferrous gluconate 256 mg (28 mg elemental iron) oral tablet) insulin glargine (Lantus Solostar Pen 100 units/mL subcutaneous solution) levothyroxine (levothyroxine 75 mcg (0.075 mg) Tab) liraglutide (Victoza 6 mg/mL subcutaneous injection) magnesium oxide (magnesium oxide 400 mg Tab) ramipril (ramipril 5 mg Cap) rivaroxaban (Xarelto 20 mg oral tablet) rosuvastatin (rosuvastatin 10 mg Tab) [Image Removed: STOP]Stop taking these medications acetaminophen-hydrocod one (acetaminophen-hydroco done 325 mg-5 mg oral tablet) Procedure History Injection (01/19/2022), Ablation (11/03/2021), Esophagogastroduodenos copy and polypectomy of duodenum (07/17/2021), Cholecystectomy (03/20/2021), Colonoscopy (06/11/2020), appendectomy, bilateral carpal tunnel elease, Bilateral cataract, Cardiac catheterization, EGD (esophagogastroduodeno scopy) gastric outlet reduction, hysterectomy, L 4-5t toes --- bones and toenails removed, L and R rotator cuff, R hand tendons, R ulna n transposition, right ankle surgery, shoulder surgery, tubes tied. Discharge Vitals Temperature (Oral) 36.6 ?C Heart Rate (Monitored) 81 Respiratory Rate 16 Blood Pressure 159/66 Weight 116.4 kg What to do next Instructions From Your Doctor Event Name Event Result Pending Diagnostic Test Results None Pharmacy Information [facility] Previously Scheduled Follow-Up Appointments Tuesday. 2022 1:20 PM EDT With: FLYNN WELDON FAAFP, Shyla Genao Where: [facility] [place] [facility] HEMATOLOGYOrdered By: SYSTEM SYSTEM on 10-07-2022 Basophils/100 WBC (Bld) 0.2 % Normal 0.0 - 2.0 % [facility]eAutoSS Basophils/Leukocytes Auto (Bld) [Pure # fraction] 0.0 E9/L Normal 0.0 - 0.2 E9/L [facility] Eosinophils/100 WBC (Bld) 0.0 % Normal 0.0 - 8.0 % [facility]Auto[facility] Eosinophils/Leukocyt es Auto (Bld) [Pure # fraction] 0.0 E9/L Normal 0.0 - 0.5 E9/L [facility] Lymphocytes/100 WBC (Bld) 8.3 % Low 14.0 - 50.0 % [facility] Lymphocytes/Leukocyt es Auto (Bld) [Pure # fraction] 0.9 E9/L Low 1.0 - 4.0 E9/L [facility] Monocytes/100 WBC (Bld) 8.4 % Normal 4.0 - 14.0 % [facility]eAuto[facility] Monocytes/Leukocytes Auto (Bld) [Pure # fraction] 0.9 E9/L Normal 0.2 - 1.0 E9/L [facility] Neutrophils/100 WBC (Bld) 83.1 % High 36.0 - 75.0 % [facility] Neutrophils/Leukocyt es Auto (Bld) [Pure # fraction] 8.7 E9/L High 2.0 - 7.5 E9/L [facility] HEMATOLOGYOrdered By: Felix Galvin on 10-07-2022 Erythrocyte distribution width (RBC) [Ratio] 14.8 % High 10.9 - 14.2 % [facility] Hematocrit (Bld) [Volume fraction] 37.4 % Normal 34.0 - 46.0 % [facility] Hemoglobin (Bld) [Mass/Vol] 12.6 g/dL Normal 12.0 - 16.0 gm/dL [facility] MCH (RBC) [Entitic mass] 30.1 pg Normal 27.0 - 34.0 pg [facility] MCHC (RBC) [Mass/Vol] 33.6 g/dL Normal 31.4 - 36.0 gm/dL [facility] MCV (RBC) [Entitic vol] 89.6 fL Normal 80.0 - 100.0 fL [facility] Platelet mean volume (Bld) [Entitic vol] 7.4 fL Normal 6.4 - 10.8 fL [facility] Platelets (Bld) [#/Vol] 248.0 E9/L Normal 150.0 - 500.0 E9/L [facility] RBC (Bld) [#/Vol] 4.2 E12/L Low 4.3 - 5.9 E12/L [facility] WBC corrected for nucl RBC Auto (Bld) [#/Vol] 10.5 E9/L Normal 4.0 - 11.0 E9/L [facility]Auto[facility] Inpatient Clinical Summaryon 10-07-2022 Inpatient Clinical Summary [address] [address] Clinical Summary Person Information: Name: NAHED PETERSON Age: 77 Years : 1945 Sex: Female PCP: Shyla PRUTET MD, FAAFP Marital Status: Phone: [phone] Race: White Ethnicity: Non- or Language: Congolese Visit Id: Visit Reason: LEFT SHOULDER DJD Speciality: Acuity: Enc Type: Observation Med Service: Surgery Arrival: 10/06/2022 10:23:00 Discharge: Dispo Type: Address: [address] [place] [id number] Provider Notes: Diagnosis: Arthritis of shoulder region, left, degenerative Problems Active Diabetes mellitus Tobacco non-user Trigger finger, right Obstructive sleep apnea syndrome, moderate Osteopenia of multiple sites Constipation due to slow transit Low vitamin D level Other insomnia not due to a substance or known physiological condition BMI 45.0-49.9, adult Type 2 diabetes mellitus with polyneuropathy Bilateral leg edema 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 Type 2 diabetes mellitus with hyperlipidemia Paroxysmal A-fib Diastolic dysfunction Morbid obesity Hyperlipidemia, mixed Abnormality of gait Pancreatic insufficiency Fibromyalgia Moderate recurrent major depression Chronic insomnia Other specified hypothyroidism Anticoagulated Encounter for medication monitoring Lumbar back pain with radiculopathy affecting lower extremity Fatty liver Female stress incontinence Trapezius muscle spasm Long-term insulin use Urge incontinence Nocturia Nocturnal hypoglycemia Left ventricular hypertrophy Prurigo nodularis Arthritis of left knee Primary localized osteoarthrosis of shoulder region Smoking Status: Functional Status: Sensory Deficits: History of Falls: Mobility Assistance Prior to Admission: ADLs: Minimal assistance Current Level of Assistance for Self-Care/Mobility: Cognitive Status: Allergies Neosporin ophthalmic ointment () Tape (adhesive) () Augmentin (Nausea) AmLODIPine Besylate (hypotension) metFORMIN (diarrhea) Zocor (aching 4 statins tried) Tobradex (Orbital edema) (Blisters) oxybutynin (Orbital edema) (Blisters) amoxicillin (Allergic skin rash) traMADol (Abdominal pain) Fosamax (Joint pain) Measurements: Height: Weight: 116.4 kg Blood Pressure: 159 mmHg / 66 mmHg BMI: Procedures No Procedures Documented Immunizations No Immunizations Documented This Visit Final Med List: acetaminophen-oxycodon e (Percocet 5 mg-325 mg oral tablet) 1-2 tab(s) Oral q4hr. Refills: 0. baclofen (baclofen 10 mg Tab) 1 Tablets By Mouth 3 times a day as needed Muscle pain. carvedilol (carvedilol 25 mg Tab) 0.5 Tablets By Mouth 2 times a day. celecoxib (CeleBREX 100 mg Cap) 1 Capsules By Mouth every day as needed for pain. Refills: 0. cephalexin (Keflex 500 mg Cap) 1 Capsules By Mouth every 8 hours for 7 Days. Refills: 0. cetirizine (cetirizine 10 mg oral capsule) 1 Capsules By Mouth every day as needed for allergy symptoms. cholecalciferol (Vitamin D3) 2,000 International unit By Mouth every day. cyanocobalamin (Vitamin B12 1000 mcg Tab) 1 Tablets By Mouth every day. diltiazem (Cardizem 60 mg Tab) 1 Tablets By Mouth 3 times a day. docusate (Colace 100 mg Cap) 1 Capsules By Mouth 2 times a day as needed for constipation. Refills: 0. doxepin (doxepin 10 mg Cap) 1 Capsules By Mouth once a day (at bedtime). duloxetine (Cymbalta 30 mg Cap-EC) 1 Capsules By Mouth every day. Refills: 1. ferrous gluconate (ferrous gluconate 256 mg (28 mg elemental iron) oral tablet) 1 Tablets By Mouth every day. insulin glargine (Lantus Solostar Pen 100 units/mL subcutaneous solution) 25 Units Subcutaneous 2 times a day. Refills: 3. levothyroxine (levothyroxine 75 mcg (0.075 mg) Tab) 1 Tablets By Mouth every day. Refills: 3. liraglutide (Victoza 6 mg/mL subcutaneous injection) 2.4 Milligram Subcutaneous every day. 90 day supply. Refills: 3. magnesium oxide (magnesium oxide 400 mg Tab) 1 Tablets By Mouth 2 times a day. [facility] Prescription (glucometer test strip) test QID. Refills: 3. [facility] Prescription (pen needles) 31G, 3/16 , 5mm. use daily with insulin. Refills: 3. Non-Formulary Medication (Vision Formula/Lutein) 1 tab By Mouth every day. ramipril (ramipril 5 mg Cap) 1 Capsules By Mouth every day. Refills: 0. rivaroxaban (Xarelto 20 mg oral tablet) 1 Tablets By Mouth every day. rosuvastatin (rosuvastatin 10 mg Tab) 0.5 tab By Mouth every day. Refills: 1. Care Team Members: Attending Physician: Evan Pruett DO Consulting Physician: Referring Physician: Evna Pruett DO Follow up: With: Address: When: [place] [address] Business (1) With: Address: When: Shyla PRUETT [facility] [place], [place] (more content not included)... [facility] Inpatient Patient Summaryon 10-07-2022 Inpatient Patient Summary [address] [address] Patient Discharge Instructions PERSON INFORMATION Name: NAHED PETERSON Date of : 1945 Current Date: 10/07/2022 07:47:15 PHYSICIANS Admitting Physician: Evan Pruett DO [facility] Care [facility] Comment: Discharge Diagnosis: Arthritis of shoulder region, left, degenerative Condition at Discharge: NAHED PETERSON has been given the following list of follow-up instructions, prescriptions, and patient education materials: PATIENT FOLLOW-UP INFORMATION Diet: Discharge Activity: Discharge Restrictions: Wound Care Instructions: Remove Your Dressing In Days Call Your Doctor For: IF UNABLE TO CONTACT YOUR PHYSICIAN AND YOU FEEL IT IS AN EMERGENCY, GO TO THE NEAREST EMERGENCY ROOM OR CALL 911 Home Treatment: Devices/Equipment: Special Services: Additional Instructions: Primary Care Physician to provide the following pending test results: None Follow up: With: Address: When: [place] [address] Business (1) With: Address: When: Shyla PRUETT [address] [place] [phone] Business (1) In the event that this physician does not participate in your insurance network, please consult with your insurance company to find a nearby participating provider. Type Location Start [facility] 12/20/2022 1:20 PM 12/20/2022 1:40 PM Confirmed Comment: PASTOR Olvera CYNTHIA J, have received the attached patient education materials/instructions and have verbalized understanding: Patient Signature Date Clinican/Nurse Signature ___ Date HERE ARE THE MEDICATION CHANGES THAT OCCURRED DURING YOUR HOSPITAL STAY New Medications [employer] [facility] [address] [place], [place] [id number], [phone] docusate (Colace 100 mg Cap) 1 Capsules By Mouth 2 times a day as needed for constipation. Refills: 0. Last Dose: ___Next Dose: ___ Medications to Continue with No Changes [employer] [address], [address], [place] [id number], [phone] acetaminophen-oxycodon e (Percocet 5 mg-325 mg oral tablet) 1-2 tab(s) Oral q4hr. Refills: 0. Last Dose: ___Next Dose: ___ celecoxib (CeleBREX 100 mg Cap) 1 Capsules By Mouth every day as needed for pain. Refills: 0. Last Dose: ___Next Dose: ___ cephalexin (Keflex 500 mg Cap) 1 Capsules By Mouth every 8 hours for 7 Days. Refills: 0. Last Dose: ___Next Dose: ___ Other Medications baclofen (baclofen 10 mg Tab) 1 Tablets By Mouth 3 times a day as needed Muscle pain. Last Dose: ___Next Dose: ___ carvedilol (carvedilol 25 mg Tab) 0.5 Tablets By Mouth 2 times a day. Last Dose: ___Next Dose: ___ cetirizine (cetirizine 10 mg oral capsule) 1 Capsules By Mouth every day as needed for allergy symptoms. Last Dose: ___Next Dose: ___ cholecalciferol (Vitamin D3) 2,000 International unit By Mouth every day. Last Dose: ___Next Dose: ___ cyanocobalamin (Vitamin B12 1000 mcg Tab) 1 Tablets By Mouth every day. Last Dose: ___Next Dose: ___ diltiazem (Cardizem 60 mg Tab) 1 Tablets By Mouth 3 times a day. Last Dose: ___Next Dose: ___ doxepin (doxepin 10 mg Cap) 1 Capsules By Mouth once a day (at bedtime)., dr Mccormack for sleep Last Dose: ___Next Dose: ___ duloxetine (Cymbalta 30 mg Cap-EC) 1 Capsules By Mouth every day. Refills: 1. Last Dose: ___Next Dose: ___ ferrous gluconate (ferrous gluconate 256 mg (28 mg elemental iron) oral tablet) 1 Tablets By Mouth every day. Last Dose: ___Next Dose: ___ insulin glargine (Lantus Solostar Pen 100 units/mL subcutaneous solution) 25 Units Subcutaneous 2 times a day. Refills: 3. Last Dose: ___Next Dose: ___ levothyroxine (levothyroxine 75 mcg (0.075 mg) Tab) 1 Tablets By Mouth every day. Refills: 3. Last Dose: ___Next Dose: ___ liraglutide (Victoza 6 mg/mL subcutaneous injection) 2.4 Milligram Subcutaneous every day. 90 day supply. Refills: 3. Last Dose: ___Next Dose: ___ magnesium oxide (magnesium oxide 400 mg Tab) 1 Tablets By Mouth 2 times a day. Last Dose: ___Next Dose: ___ Misc Prescription (glucometer test strip) test QID. Refills: 3. Last Dose: _ (more content not included)... [facility] Interdisciplinary Note - Pranay e Manageron 10-07-2022 Interdisciplinary Note - Sewage Disposal Worker Leeann MCDONALD asked CRM if she needed to see patient as patient is getting wheeled out to DC CRM stopped in room patient denied any DME or needs at DC Patient DC home now Spouse is in room [facility] Comment on above: Result Comment: Elec tronically Signed By: Maritza Sebastian\.beau\Date and Time Signed: 10/07/22 10:28 EST IntraOperative Documentson 0 10-07-2022 IntraOperative Documents [id number] CD:127 Normal [facility] Lyteson 10-07-2022 Anion gap [Moles/Vol] 12 mmol/L Normal 6-16 [facility] Comment on above: Performed By: #### 2 [id number] #### [facility] [address] [place] [address] Chloride [Moles/Vol] 102 mmol/L Normal 101-111 [facility] Comment on above: Performed By: #### 2 [id number] #### [facility] [address] [place] [address] CO2 [Moles/Vol] 24 mmol/L Normal 21-31 [facility] Comment on above: Performed By: #### 2 [id number] #### [facility] [address] [place] [address] Potassium [Moles/Vol] 4.1 mmol/L Normal 3.5-5.3 [facility] Comment on above: Performed By: #### 2 [id number] #### [facility] [address] [place] [address] Sodium [Moles/Vol] 134 mmol/L Low 135-145 [facility] Comment on above: Performed By: #### 2 [id number] #### [facility] [address] [place] [address] Physician Orderon 10-07-2022 Physician Order [id number] CD:127 [facility] Preoperative Documentson Preoperative Documents [id number] CD:127 [facility] Progress Note-Physicianon Progress Note-Physician Patient: NAHED PETERSON Age: 77 years Sex: Female : 1945 Associated Diagnoses: None Author: Evan Pruett DO POD 1 s/p L reverse TSA L UE: dressing dry, ecchymosis around dressing edges, able to flex/ext wrist, extends thumb and digits, makes fist, brisk cap refill WBC 10.5 Hgb 12.6 HCt 37.4 Plt 248 Na 134 post op xrays reviewed yesterday. prosthesis in satisfactory position Plan: - D/C home - D/C abduction pillow Objective Vital Signs 10/07/2022 7:26 EST Heart Rate Monitored 81 bpm SpO2 92 % 10/07/2022 7:22 EST Temperature Oral 36.6 DegC 10/07/2022 7:20 EST Systolic Blood Pressure 159 mmHg HI Diastolic Blood Pressure 66 mmHg Normal [facility] Comment on above: Result Comment: Elec tronically Signed By: Evan Pruett DO\.br\Date and Time Signed: 10/07/22 07:47 EST eGFRon 10-07-2022 GFR/1.73 sq M.predicted among blacks MDRD (S/P/Bld) [Vol rate/Area] mL/min/{1.73_m2} Normal >=59 [facility] Comment on above: Order Comment: Order added by Discern Expert. Result Comment: eGFR is race adjusted. AA=. Performed By: #### 2 [id number] #### [facility] [address] [place] [address] GFR/1.73 sq M.predicted among non-blacks MDRD (S/P/Bld) [Vol rate/Area] mL/min/{1.73_m2} Normal >=59 [facility] Comment on above: Order Comment: Order added by Discern Expert. Result Comment: Family Assessment Worker josse kidney disease could be indicated at eGFR's of less than 60 mL/min/1.73m2. Kidney failure is indicated at less than 15 mL/min/1.73m2. Performed By: #### 2 [id number] #### [facility] [address] [place] [address] ABO/Rhon 10-06-2022 ABO/Rh Positive Invalid Interpretation Code [facility] Comment on above: Performed By: #### 1 [id number] ####[facility] [address] [place] [address] ABO/Rh History Checkon 10-06 ABO/Rh History Check Verified Hx Blood Type Normal [facility] Comment on above: Performed By: #### 1 [id number], [id number], [id number], [id number] ####[facility] [address] [place] [address] ABSCon 10-06-2022 ABSC Gel Interp Negative Normal [facility] Comment on above: Performed By: #### 1 [id number], [id number] #### [facility] [address] [place] [address] BLOOD BANKOrdered By: Keegan Leon on 10-06-2022 ABO/Rh Interp Positive Invalid Interpretation Code [facility] BB Subsection ABSC Gel Interp Negative (10/06/22 11:18 AM) Normal [facility] BB Subsection Blood Bank ID#on 10-06-2022 BBID# [id number] Invalid Interpretation Code [facility] Comment on above: Performed By: #### 1 [id number], [id number], [id number], [id number] ####[facility] [address] [place] [address] CHEMISTRYOrdered By: Damon ROP User on 10-06-2022 Glucose [Mass/Vol] 294 mg/dL High 55 - 99 mg/dL F[facility] C POC Subsection Comment on above: Result Comment: Evonne DUCKWORTH POC Device SN [id number] Invalid Interpretation Code [facility] POC Subsection POC User ID [id number] Invalid Interpretation Code FT POC Subsection POC Username FIDENCIO JARA Invalid Interpretation Code [facility] POC Subsection Glucose [Mass/Vol] 195 mg/dL High 55 - 99 mg/dL [facility] C POC Subsection Comment on above: Result Comment: Evonne zhu RN/ POC Device SN [id number] Invalid Interpretation Code [facility] POC Subsection POC User ID [id number] Invalid Interpretation Code [facility] POC Subsection POC Username SAUMYA LUNA Invalid Interpretation Code [facility] POC Subsection Capillary Glucose POCon Glucose [Mass/Vol] 294 mg/dL High 55-99 [facility] Comment on above: Result Comment: Evonne zhu RN/ Performed By: #### 2 [id number] ####[facility] [address] [place] [address] Glucose [Mass/Vol] 195 mg/dL High 55-99 [facility] Comment on above: Result Comment: Evonne zhu RN/ Performed By: #### 2 [id number] #### [facility] [address] [place] [address] Glucose [Mass/Vol] 144 mg/dL High 55-99 [facility] Comment on above: Result Comment: Krysta sivan Meter Performed By: #### 2 [id number] #### [facility] [address] [place] [address] Consent for Treatmenton Consent for Treatment [id number] 0CD:127 [facility] H&P Updateon 10-06-2022 H&P Update [id number] 0CD:127 Normal [facility] Main OR PACU I Recordon Main OR PACU I Record PACU Phase I Document Type FT Summary Primary Physician: Evan Pruett DO Finalized Date/Time: 10/06/22 16:00:30 Pt. Name: NAHED PETERSON/Sex: 1945 Female Med Rec #: [id number] Physician: Evan Pruett DO Financial #: [id number] Pt. Type: O Room/Bed: 18/01 Admit/Disch: 10/06/22 10:23:00 - Institution: Case Times PACU I FT Pre-Care Text: Identifies barriers to communication and implements measures to provide psychological support Develops individualized plan of care, and ensures continuity of care Maintains patient's dignity and privacy, and maintains patient confidentiality Identifies and reports philosophical, cultural, and spiritual beliefs and values Identifies individual values and wishes concerning care Implements aseptic technique, and administers prescribed antibiotic therapy and immunizing agents as ordered Evaluates postoperative tissue perfusion Implements thermoregulation measures, and monitors body temperature Evaluates postoperative respiratory status Evaluates postoperative cardiac status Evaluates postoperative neurological status Assesses pain control, collaborated in initiating patient-controlled analgesia and implements alternative methods of pain control Verifies allergies, administers prescribed medications and solutions, evaluates response to medications Entry 1 In PACU I 10/06/22 14:34:00 Discharge from PACU 10/06/22 15:28:00 I Outcomes Met? Yes Last Modified By: Yamel Puentes RN 10/06/22 16:00:14 Post-Care Text: The patient demonstrates knowledge of the expected response to the operative or invasive procedure The patient's care is consistent with the individualized perioperative plan of care The patient's right to privacy is maintained The patient's value system, lifestyle, ethnicity, and culture are considered, respected, and incorporated into the perioperative plan of care The patient participates in decisions affecting his or her perioperative plan of care The patient is free from signs and symptoms of infection The patient has wound/tissue perfusion consistent with or improved from baseline levels established preoperatively The patient is at or returning to normothermia at the conclusion of the immediate postoperative period The patient's respiratory function is consistent with or improved from baseline levels established preoperatively The patient's cardiovascular status is consistent with or improved from baseline levels established preoperatively The patient's cardiovascular status is consistent with or improved from baseline levels established preoperatively The patient demonstrates and/or reports adequate pain control throughout the perioperative period The patient received appropriate medication(s), safely administered during the perioperative period Acuity Level PACU I FT Entry 1 Start Time 10/06/22 14:34:00 Stop Time 10/06/22 15:28:00 Acuity Level Acuity Level I Last Modified By: Yamel Puentes RN 10/06/22 16:00:27 Finalized By: Yamel Puentes RN Document Signatures Signed By: Yamel Puentes RN 10/06/22 16:00 [facility] Main OR Preoperative Recordo n 10-06-2022 Main OR Preoperative Record PreOp Document Type FT Summary Primary Physician: Evan Pruett DO Finalized Date/Time: 10/06/22 13:29:35 Pt. Name: NAHED PETERSON /Sex: 1945 Female Med Rec #: [id number] Physician: Evan Pruett DO Financial #: [id number] Pt. Type: A Room/Bed: [facility] Admit/Disch: 10/06/22 10:23:00 - Institution: Case Times PreOp FT Pre-Care Text: Verifies consent for planned procedure, identifies individual values and wishes concerning care, includes family members in perioperative teaching Entry 1 Patient Times. In Pre Surgery 10/06/22 10:30:00 Out Pre Surgery 10/06/22 12:34:00 Outcomes Met? Yes Last Modified By: Linda Flaherty RN 10/06/22 13:29:33 Post-Care Text: The patient participates in decisions affecting his or her perioperative plan of care Finalized By: Linda Flaherty RN Document Signatures Signed By: Linda Flaherty RN 10/06/22 13:29 [facility] Monitor Recordon 10-06-2022 Monitor Record [id number] 0CD:127 [facility] Monitor Record [id number] 0CD:127 [facility] Operative Reporton Operative Report Patient: RONNELL PETERSON Age: 77 years Sex: Female : 1945 Associated Diagnoses: None Author: Evan Pruett DO DATE OF SURGERY: 10/06/2022 SURGEON: Evan Pruett D.O. FINANCIAL LEGAL ASSISTANT: Ney Solano CFA PREOPERATIVE DIAGNOSIS: Advanced glenohumeral posttraumatic osteoarthrosis, left shoulder POSTOPERATIVE DIAGNOSIS: Advanced glenohumeral posttraumatic osteoarthrosis, left shoulder OPERATION: 1. Left reverse total shoulder arthroplasty 2. Biceps tenodesis, left shoulder ANESTHESIA: General with a regional block ANESTHESIOLOGIST: Dudley Thomas DO and Hugo An CRNA IMPLANTS USED: [employer] Revers System 1. 24 mm 20 degree full augment baseplate, 20 mm central post, four peripheral screws measuring 4.5 mm x 32 mm nonlocking x 2, 5.5 mm x 20 mm locking x 2 2. 36 +4 Glenosphere 3. size +6 humeral insert 4. Revers Fountain size 8 stem with 36 (+2 left) Suturecup OPERATIVE INDICATIONS: Nahed is a 77-year-old [id number] female who has had persistent left shoulder pain that has gotten progressively worse over time. She has lost strength, range of motion, and function. Her symptoms interfere with her activities of daily living, ability to sleep at night, and quality of life. She has a history of a proximal humerus fracture to the left shoulder in 2006 that was managed conservatively. She underwent arthroscopic lysis of adhesions later that year for persistent stiffness. She agreed to proceed with the above procedure after a discussion of the risks, benefits, complications, alternatives, and expectations. Please see office notes for further details. Presurgical planning and intraoperative instrumentation were performed with the [employer] software. PROCEDURE: The correct operative site was identified and marked in the preoperative holding area. The patient was administered intravenous antibiotics in accordance with SCIP Protocol. She was transported to the Regional Block Room and administered a regional anesthetic nerve block by the anesthesiologist. I requested the regional nerve block to assist with intraoperative and postoperative pain control. She was transported to the Operating Room and placed supine on the operating room table. She was administered a general anesthetic. After adequate anesthesia was obtained, she was placed into the beach chair position with all bony prominences well padded and the head secured in the padded fuentes. The head of the table was elevated approximately 45 degrees. She was administered one gram of Tranexamic acid intravenously about 15 minutes prior to the incision. Pneumatic sequential stockings were applied to the legs. The left upper extremity was then prepped and draped in the usual sterile fashion. The extremity was draped free and placed onto a padded sterile balderas stand. A deltopectoral approach was utilized. An incision was made beginning at the coracoid process and extended distally towards the deltoid insertion. Medial and lateral skin flaps were developed. Hemostasis achieved along the way with Bovie electrocautery and Aquamantys. The cephalic vein was located. The deltopectoral interval was identified and opened. The cephalic vein was retracted laterally. Perforating veins into the pectoralis were cauterized with the Bovie. Deltoid adhesions within the subacromial space were released with a moulton. Gunter retractor was then placed to retract the deltoid. The conjoined tendon was identified and the clavipectoral fascia was opened just lateral to the conjoined tendon. The coracoacromial ligament was identified and the rotator interval was then opened. The bicipital sheath was opened and the biceps tendon was visualized. The biceps tendon was sutured to the upper aspect of the pectoralis major with two #2 FiberWire figure 8 sutures. The biceps was transected proximal to the tenodesis site and then released proximally. The anterior circumflex vessels were cauterized with the Bovie and Aquamantys. A Darrauch retractor was placed into the glenohumeral joint and used to help apply tension to the anterior capsule. The anterior capsule was released from the anterior humerus with the bovie. There was no significant subscapularis tendon present. The arm was extended, adducted, and externally rotated to deliver the proximal humerus as the anterior capsule was released. There was significant deformity and flattening of the humeral head due to previous fracture. The 135 degree resection guide was then placed against the proximal humerus and a Bovie was used to create a micheal at the humeral head for the position of the desired cut. The humeral head remnant was then freehand cut with an oscillating saw. Metal protection cap was placed onto the cut humeral surface. Attention was then turned to preparation of the glenoid. A posterior retractor was placed to retract the humeral head. Zuleika retractor placed posterosuperiorly. The axillary nerve was (more content not included)... Normal [facility] Comment on above: Result Comment: Elec tronically Signed By: Evan Pruett DO\.beau\Date and Time Signed: 10/06/22 15:14 EST XR Shoulder Complete Lefton 10-06-2022 XR Shoulder Complete Left Exam Date/Time: 10/06/2022 14:55 EST Reason for Exam: Post Op Report IMPRESSION: POSTOP REVERSE GLENOHUMERAL LEFT SHOULDER PROSTHESIS. CLINICAL HISTORY: Post Op. COMMENT: 2 views. There is a metallic reverse left glenohumeral shoulder prosthesis in place. There is gas in the adjacent soft tissues from the surgery. Ordering Provider: Evan Pruett FINAL REPORT Dictated: 10/06/2022 4:00 pm Terrance Bertrand M.D. Signed (Electronic Signature): 10/06/2022 4:00 pm Signed by: Terrance Bertrand M.D. Transcribed by: JENNIFER Technologist: ARACELI Technical Comments Radiation Dose: Ka,r in mGy = 0 DAP = 0 [facility] Consent for Procedure/Surger yon 10-05-2022 Consent for Procedure/Surgery [id number] 00CD:127 [facility] Coding Summary.on 10-01-2022 Coding Summary. CD:[id number]:[id number] Gh 0bWw+PGhlYWQ+AJ0BBVGrZ 91czZHsqZ5WR6vRJB2MGPQ AAHGNMR2WCH8yfHQ1OUoyE 2VybiAv EsdtyLGyXV45YGi3MFP5vU mqWZbjpB0pxPIzX5g3RwJt BJ21vE54KTrxNJYqQmE4Zd ZpbjsgbWFy B3aaCfFbxZVaPej+PHRhYm xlIHdpZHRoPScxMDAlJyBz hBbeHN5qPl5nDSVuMBXrpZ xhcHNlOiBj r5cqUKEkUCmiQU4rkWptT6 AdmDZ4NRFva4k3Oa58qYL+ ZOGnNRN6lGxeQVirt854Bx Vhy4emVHD7 yURcLPcoZST7A42dt0A1BG VsQWZrIBV7dMN0rN2waIol cfenS1XvrJTaIpY1DOT3hL QsvS2hvEhr vmgzyK4mHug+Y36CXF6EIZ AWRS9MEiq5Z6UgFbhfkLD+ NY38JHHtOI83rSUztJPwu8 zgiRr6TeHv RLCkVXF1aBkvRYojg4YkQE LwW46igZUzp0B7ETFogGmc jGYzTwPanJW0xT5zUQjrai svv0wrfhpm Nuddl4vqfk34wI82Z97kUK tsDKKhFYL2PQSrLZNhiKuu vk2qiE1vPq6+DCzoe1wny6 ilxKj3DgLs LXBakiFiwGtaVUL1u1NuXk 94G7NnmRkhq8TnDxd4og19 cNJqa6C2tDQ5SNyzGMLwkG 0cOCrfCvD7 WFDqJkGfsN97bORiOIfhYy 4rbUovxHtpJD0nHLCunnhn KRShrH0yGWDshGWvhSfeVI 4wNTBpbjtm v009YiPzEWF7ZCXdmLOvC7 JloI2dPtZkUWFxRHGuE5Lr kGLrVRhuS162GWpwYcC5WT ZxnoKdK7Tc ETFhrCuzYkN3y2Y3Hf5Gq2 OfyqixSJA0EXzsGBIeNhQr FhMdGxH9F5XjHfg9SAYykH obYA6uI4Pi RWPddxcqwzrouNQ6ZQVcDD MkxG36oLLoFHitGh8lh8C0 e804UAGbKFGjwM00Wh9csT ogMTBwdCBU tZ9devwqe0qrmsgmNoQdFD GqZZs1PQt6HPNaqWpvEeSx XVL3QrD2WWH8pBKqwE3jbI dtqqbwgG5z Oyc+Q13bfC7iFSH0TAU6bi mqKUAvtcElJH05EA07D8Ib PjwvdGFibGU+PGRpdiBzdH nhKA0cFtSg c8def3MpBUeiJ1VdGFBiNK vkDgw2IKLrOCY0hEE4kJ0j AFYwHKatm9U6uJV0K4Xgvg Uboa3ua3jd ZIBjFMjaB65mrCSlr0P8UM EylPI6KLNojCrwDkYftA73 Oyc+DPYjmCjmx3LcQbdtq5 lea5lgzWl4 AhUoNUQnqrElnFnvBAO6e4 WiZc40Z04hWRshEOXpFANk IKBsKSTizIgoht1boB8oYt 8+PGNvbCB3 qLO8bY9tYDZqNkT8NUzbQ0 28HvRfeCPaUjaxo9kbe7wk fHp4JrTlMSDsolRvcJsrYQ Q4s0XtJq96 J91oRAayTHUkDONgUTMhTN TctSaaku3zoG1qTf4+PC9j p4bnxd83fN90tCV+PHRkIH C1pZfsVXvm MRXnlP4fMOyoTrT5AUHsYl MscC69nZArMQmoNk9ayOhp qOleFS2sFYYvdmsen079Et Hnf5qjULXt sKHjUCppHNE7B23yp0G1GS MzRNXmWZP4tMR1jD6vaCnf bjogbGVmdDsgdmVydGljYW vwBSttS916 IHRvcDsnPlBhdGllbnQgTm KwTGd8P3SuIts2HYOusCzl CW2dwLZxBRhoRl6pyEjkgJ rsFS5uTFGd ioiek435VrUtt7tlFEHzbR SuQKfkJLI7A57dw8C3CTPb KOMpNBJ4vFE2aZ4njGayid ogbGVmdDsg ewQpwDuuEXxoLFmbR024YB RvcDsnPkJpcnRoIERhdGU6 BL97PE95wEOrl1S2xLZ9Q7 BhZGRpbmct qcilcCM6YOXnOHHflE57Ai 5trQyyRf7iEFZpDDB8WBFr hGEmZ9CaiA0yLjUcACSjFH IbU9ZayYWw TQdoI877QEyfOuT7CZQduu JcF7GxKRDquWnaKoR6a9O8 Yh3MZ4Q3KT13YK77rVToi1 A0jXY1E1Ac ZVQsoaonbkdciAL7FBKiAG JbdJ83Am6ltRkzYy8tFPTz ZUR0CJBlnIYiZ0VvyJ4mQf AjMDAwMDAw L6CvbIDfCGsqM714ZQehOr L9RROmgnCqU7UdLKXgzQpm XrZ8u9Z0Mm6VBXt8LT69EO 86qRKwz7L9 oJR9V7DzACWagsvxtkkfaZ M4TKNoEIIigO88Yu5udHly Bk4dYIPtMLD5VZBxzFViT0 LejD6rDyOn MPDsAFUaQ0TtfDTfNRtrL6 73DWqcMyK6MXRpfaHhH2In YHQqzOqlLtU7n9P9Ay6WEL NhOC26VDG8 aQH7DD10QX53V0NpAguqkS FibGU+PHRhYmxlIHdpZHRo ZNhxUNQkIfLvxEodGK0mOk 9yZGVyLWNv kBpolQEqEpFup2gnNGYjSB fsRX3kmIdnI0IiwFJ2OURc j5q9Ih52W54rK8KwvJZ+PG IdwYU6nEC7 vG5xGeOjXsU6FKetI633Jl ZclZKlEiayb6pzf0gutEj4 TkX6ERLvbfIcmVlhGAM2y4 EhJo99U60j IHdpZHRoPSIxNSUiIHZhbG njyj8xkL4qHc1+PGNvbCB3 wAN6cY1vJfRmYkF2XJubN2 49InRvcCIv Aismq3mha1ofwAi0QdLnEC HmhsUitVjeBYE9w2OwYc02 F5XvkQmdt8DpOur7ua97yL Tep2X1xCK6 Q7XtBIXmxwqfiARgiUajLK 8yKCBzzhjbYJZqbC6zXGIe Q3p1DqCoBvW1KXltX0Qvxi Q9IMQywWQl WGypPKI5G55tw0H4PKQuKD PxRFP9dRC3rI1ysSnifgud bGVmdDsgdmVydGljYWwtYW gzO944AKDp oEomOLQzrX9mIUYayISoiU edZN3lFCQqiijaKpILPoIl IENZTlRISUEgSjwvdGQ+PH SzIVC3iSju JUkwFPXczN2wZHWrE5y0Si ApGwJ1ODddN5GtYZGqfjxw Pp78rZ2tKbZbIfP4WJxpP0 WeilW8ULJq fUZzJSvwIKX6K83ty9E4AH RsLXHbTVO4mWJ0gH3qhOaz bjogbGVmdDsgdmVydGljYW hpGFwoZ535 NQCujTnhXcK7BuZfTfX2PR y0Z8XyStn9XUWanHrfMQ7s dMGyVUrkYw2kuCssbYaoIF 4wNTBpbjtw MNTmgJ0jESIkvJLadDggAX 1kZCBtohjbf863XhWgRFA6 XZIhfOKyT0DueC4mUkSwZL NeWJIjJ3Iz mOFhWQrcT224CIgyVzJ3DH EgewTdY3GkMEYclChiWtD9 l4O4Iv81DITIGVQtaisivV Q+PHRkIHN0 sThwLUlvOIMjhT2bVRWfS6 h4GdZnVpZ7ZKqlM3UbDYAt qgxeGl49tV1eHmGuTfP0QC ryK8GtddI4 QNMvmZIbHNwhOPP8I88lv6 K2UFKjLYTlDAW1bPZ4mF0e bGlnbjogbGVmdDsgdmVydG ljYWwtYWxp K182TZHfnOwcDdUjyCStWZ wvdGQ+UKNcICA1xBfnINps XNAidZ5tJKWzM5q4IvLzAv D3UEhyN6Ec XDIwlwnwKf59dF3kPwVxYr N3RBmiC3CgmbK3DAPncRDc MPtgKRF2Z75zd6I1MRUjEF HjBWE0xCH0 cJ9jqQbcvwoanNOksFdmrl CtnFhmBWruORpsD225XPDs tJroTs25wPDniMkctdQ1G9 RkPjwvdHI+ XJ07YHZqME34wFCeeHJke5 ikvCz6JsGzNKTdIYB2uGbj RNbaf7NfZUJlQ91csVBxp6 Y2SSLviTtx fBZeHiRinCQ6mA5wVGqdob lvj2ycykehTilon5loph90 pR26J47cJMdmSSWyKGLoAA UiIHZhbGln ro3rxZ2xWi1+UXHsuGM5lS M6qF7vDmBcYeC7EFlhH292 YpBtkKLfWzkvm2fcw6dhaQ m5ZbReJBXp jwXztUvkAUW8o4CzAw34P1 9sIHdpZHRoPSIyMCUiIHZh uStmym2auU6gXt1+PC9jb2 xmry81bJ13 dHI+CICrJLZ7cGltKRyrMN HnnC3uTHfjCoX4SMExPdVe sP54wQLsYKsaCy0haUuwvO huHE1aQADc bxwad329FhQcw3ziTEYkyU SzCBkuGOA8T77lc2U5VQVl OOUrIOQ5dWM8eF3aqHsbgq ogbGVmdDsg fgYoeGpsEBxoWSaoW649ZA NjrNrtUxUjqSCfH7wcexRJ GO3bZoiqbQO+ZLVpSOE2cL xlPSdwYWRk uF7mXBMgN7j5PqXqNgI3GP smF5DqgaR7QRAwrLOrHQRs kURUjR4lmlsuz4dneumdFo AwMDAwMDt0 VPu6ZVIqkZxtWwCtOTN3Bx O9QYD9hLXdeY3uaApqcyjn kI6qWeu+RklOOjwvdGQ+PH OqJTC5aAbn AXivVYGrkE2sJKUkK0t8Tb LzOjJ3MDiyD4FviaV4KYBr yGWrPIFkjIECeI3shjpku7 xvcjogIzAw AQNpTQw8CNr6WXCqjUmvTg TeVEQ2FhL4SRB2tARqzL1u ySxbxahkdY7nDzj+TVJOOj wvdGQ+PHRk FYY0hNhhUZreGQKkvI1cBY RpE8r6GkOoPeZ0LWmdV3Tk loG9RYRskMBzQYZvzVUMxJ 5xylymn5il tvurWfEsPFKcPJq7GPj8PA HatRhqOsEiBIY6NaF1VUC8 lOWhmN6hdFgthemagJ4fBe c+KIA6NIU6 CJ71YW22Q2FuZwubfGMcfH U+PHRhYmxlIHdpZHRoPScx YJXqFkLhnZfxEJ1aTk2vZE VyLWNvbGxh cHNl (more content not included)... [facility] Outside Recordson 09-30-2022 Outside Records [id number]:127 [facility] C Urineon 09-25-2022 Bacteria identified Cx Nom (U) Microbiology PROCEDURE: Urine Culture [R1] SOURCE: U CleanCatch BODY SITE: COLLECTED DATE/TIME: 09/23/2022 10:26 EST RECEIVED DATE/TIME: 09/23/2022 14:36 EST START DATE/TIME: 09/23/2022 14:36 EST FREE TEXT SOURCE: Evan Preutt DO, DO, Jason A FINAL REPORTS Final Report [] Verified Date/Time: 09/25/2022 08:45 EST >100,000 cfu/ml Escherichia coli SUSCEPTIBILITY RESULTS __ LEGEND: S=Susceptible, N/R=Not Reported, Blank=Data not available, or drug not advisable or tested, I=Intermediate, ESBL=Extended spectrum beta-lactamase, R=Resistant, TFG=Thymidine-dependen t strain, DANIEL=Beta-lactamase positive, VERONIKA=mcg/m;(mg/L), S*=Predicted susceptible interp, R*=Predicted resistant interp EC Antibiotic VERONIKA Dilutn VERONIKA Interp Amikacin <=16 S Ampicillin <=8 S Ampicillin/ <=8/4 S Sulbactam Aztreonam <=4 S Cefazolin <=2 S Cefepime <=2 S Cefoxitin <=8 S Ceftazidime <=1 S Ceftazidime/ <=8 S Avibactam Ceftriaxone <=1 S Ciprofloxacin <=1 S Ertapenem <=0.5 S Gentamicin <=4 S Levofloxacin <=2 S Meropenem <=1 S Nitrofurantoin <=32 S Piperacillin/ <=16 S Tazobactam Tetracycline <=4 S Tigecycline <=2 S Tobramycin <=4 S Trimethoprim/ <=2/38 S Sulfa Performing Locations R1: This test was performed at: [facility], [address] [place] [address], [id number] , , [facility] Comment on above: Performed By: #### 2 [id number] #### [facility] [address] [place] [address] 09-23-2022 Urea nitrogen [Mass/Vol] 23 mg/dL High 5-21 [facility] Comment on above: Performed By: #### 1 [id number], 0547485, 4118534, 6779901, 0353443, 3537647 ####[facility] [address] [place] [address] CBC w/Indiceson 09-23-2022 Erythrocyte distribution width (RBC) [Ratio] 14.8 % High 10.9-14.2 [facility] Comment on above: Performed By: #### 1 [id number], 2764364, 5950709, 1173720, 6517261, 7000379 #### [facility] [address] [place] [address] Hematocrit (Bld) [Volume fraction] 44.3 % Normal 34.0-46.0 [facility] Comment on above: Performed By: #### 1 [id number], 5142433, 1504851, 7500611, 4946961, 7787482 #### [facility] [address] [place] [address] Hemoglobin (Bld) [Mass/Vol] 14.9 g/dL Normal 12.0-16.0 [facility] Comment on above: Performed By: #### 1 5560575, 2588528, 5800995, 3780149, 1373506, 0206032 #### [facility] [address] [place] [address] MCH (RBC) [Entitic mass] 30.1 pg Normal 27.0-34.0 [facility] Comment on above: Performed By: #### 1 3019628, 8072525, 8556220, 1854474, 0973360, 0681487 #### [facility] [address] [place] [address] MCHC (RBC) [Mass/Vol] 33.7 g/dL Normal 31.4-36.0 [facility] Comment on above: Performed By: #### 1 3147736, 5065144, 8486943, 7581030, 8926225, 8537116 #### [facility] [address] [place] [address] MCV (RBC) [Entitic vol] 89.3 fL Normal 80.0-100.0 [facility] Comment on above: Performed By: #### 1 1626438, 2596599, 3196331, 4898113, 3118035, 7026196 #### [facility] [address] [place] [id number] Platelet mean volume (Bld) [Entitic vol] 7.8 fL Normal 6.4-10.8 [facility] Comment on above: Performed By: #### 1 9072647, 9424165, 7479499, 9514922, 8286906, 3188103 #### [facility] [address] [place] [address] Platelets (Bld) [#/Vol] 297.0 E9/L Normal 150.0-500.0 [facility] Comment on above: Performed By: #### 1 [id number], 6466381, 4797965, 6419759, 6050005, 2460470 #### [facility] [address] [place] [address] RBC (Bld) [#/Vol] 5.0 E12/L Normal 4.3-5.9 [facility] Comment on above: Performed By: #### 1 2860149, 9202884, 5980923, 5792002, 9985757, 0487462 #### [facility] [address] [place], [place] [id number] WBC corrected for nucl RBC Auto (Bld) [#/Vol] 7.5 E9/L Normal 4.0-11.0 [facility] Comment on above: Performed By: #### 1 7555083, 5923130, 7338874, 1202332, 7936506, 6264880 #### [facility] [address] [place] [address] CHEMISTRYOrdered By: SYSTEM SYSTEM on 09-23-2022 Anion gap [Moles/Vol] 13 mmol/L Normal 6 - 16 mEq/L [facility] Remisol Chloride [Moles/Vol] 102 mmol/L Normal 101 - 1 11 mmol/L [facility] CO2 [Moles/Vol] 26 mmol/L Normal 21 - 31 mmol/L [facility] Creatinine [Mass/Vol] 0.7 mg/dL Normal 0.5 - 1.3 mg/dL [facility] GFR/1.73 sq M.predicted among blacks MDRD (S/P/Bld) [Vol rate/Area] mL/min/1.73 m2 Normal >=59mL/min/1.73 m2 [facility] Chem S GFR/1.73 sq M.predicted among non-blacks MDRD (S/P/Bld) [Vol rate/Area] mL/min/1.73 m2 Normal >=59mL/min/1.73 m2 [facility] Chem S Glucose post fast [Mass/Vol] 87 mg/dL Normal 55 - 99 mg/dL [facility] Potassium [Moles/Vol] 3.8 mmol/L Normal 3.5 - 5.3 mmol/L [facility] Remisol Sodium [Moles/Vol] 137 mmol/L Normal 135 - 145 mmol/L [facility] Remisol Urea nitrogen [Mass/Vol] 23 mg/dL High 5 - 21 mg/dL [facility] Remisol CHEMISTRYOrdered By: Ashleigh enciso on 09-23-2022 HbA1c (Bld) [Mass fraction] 8.6 % High <=5.9% [facility] ChemAutoSS CT Upper Extremity w/o Contr ast Lefton 09-23-2022 CT Upper Extremity w/o Contrast Left Exam Date/Time: 09/23/2022 11:23 EST Reason for Exam: LEFT SHOULDER DJD Report IMPRESSION: ADVANCED LEFT SHOULDER OSTEOARTHRITIS EXAMINATION: CT Upper Extremity w/o Contrast Left HISTORY: Left shoulder degenerative joint disease TECHNIQUE: Multiple contiguous axial images were obtained of the left upper extremity utilizing Arthrex protocol. Multiplanar reformats were obtained. COMPARISON: Shoulder radiographs 07/20/2022 FINDINGS: Degenerative changes including severe joint space narrowing and marginal osteophyte formation of the left glenohumeral joint. Remodeling of the humeral head and glenoid. No acute fracture. Suspect full-thickness tear of supraspinatus tendon and mild atrophy and fatty infiltration of supraspinatus muscle. All CT scans at this facility use dose modulation, iterative reconstruction, and/or weight based dosing when appropriate to reduce radiation dose to as low as reasonably achievable. Ordering Provider: Evan Pruett FINAL REPORT Dictated: 09/23/2022 4:33 pm Sadaf Najera DO Signed (Electronic Signature): 09/23/2022 4:33 pm Signed by: Sadaf Najera DO Transcribed by: JENNIFER Technologist: PALOMO Normal [facility] Consent for Treatmenton 09-02 Consent for Treatment [id number] 0CD:127 Normal [facility] Creatinineon 09-23-2022 Creatinine [Mass/Vol] 0.7 mg/dL Normal 0.5-1.3 [facility] Comment on above: Performed By: #### 1 [id number], 5705180, 6667658, 5583975, 1003163, 8927042 ####[facility] [address] [place] [address] Glu Fastingon 09-23-2022 Glucose [Mass/Vol] 87 mg/dL Normal 55-99 [facility] Comment on above: Performed By: #### 1 [id number], 9815190, 7000562, 4836889, 1811098, 4783518 #### [facility] [address] [place] [address] HEMATOLOGYOrdered By: Patrick Cadena on 09-23-2022 Erythrocyte distribution width (RBC) [Ratio] 14.8 % High 10.9 - 14.2 % [facility] HemeAutoSS Hematocrit (Bld) [Volume fraction] 44.3 % Normal 34.0 - 46.0 % [facility]eAutoSS Hemoglobin (Bld) [Mass/Vol] 14.9 g/dL Normal 12.0 - 16.0 gm/dL [facility] HemeAutoSS MCH (RBC) [Entitic mass] 30.1 pg Normal 27.0 - 34.0 pg [facility] HemeAutoSS MCHC (RBC) [Mass/Vol] 33.7 g/dL Normal 31.4 - 36.0 gm/dL [facility] HemeAutoSS MCV (RBC) [Entitic vol] 89.3 fL Normal 80.0 - 100.0 fL [facility] HemeAutoSS Platelet mean volume (Bld) [Entitic vol] 7.8 fL Normal 6.4 - 10.8 fL [facility] HemeAutoSS Platelets (Bld) [#/Vol] 297.0 E9/L Normal 150.0 - 500.0 E9/L [facility] HemeAutoSS RBC (Bld) [#/Vol] 5.0 E12/L Normal 4.3 - 5.9 E12/L [facility] HemeAutoSS WBC corrected for nucl RBC Auto (Bld) [#/Vol] 7.5 E9/L Normal 4.0 - 11.0 E9/L [facility] HemeAutoSS NniC1kqz 09-23-2022 HbA1c (Bld) [Mass fraction] 8.6 % High <=5.9 [facility] Comment on above: Performed By: #### 7 [id number] #### [facility] [address] [place] [address] Lyteson 09-23-2022 Anion gap [Moles/Vol] 13 mmol/L Normal 6-16 [facility] Comment on above: Performed By: #### 1 1605811, 6049113, 2915695, 9108974, 3839209, 4539276 ####[facility] [address] [facility] [place] [address] Chloride [Moles/Vol] 102 mmol/L Normal 101-111 [facility] Comment on above: Performed By: #### 1 [id number], 7115842, 0182774, 7823050, 2994626, 2750828 ####[facility] [address] [facility] [place] [address] CO2 [Moles/Vol] 26 mmol/L Normal 21-31 [facility] Comment on above: Performed By: #### 1 2120654, 9116486, 8119758, 8638158, 1596969, 1854135 ####[facility] [address] [place] [address] Potassium [Moles/Vol] 3.8 mmol/L Normal 3.5-5.3 [facility] Comment on above: Performed By: #### 1 2021169, 6586763, 6608432, 4862495, 7662043, 6171849 ####[facility] [address] [place] [address] Sodium [Moles/Vol] 137 mmol/L Normal 135-145 [facility] Comment on above: Performed By: #### 1 3207007, 2076407, 2942602, 5560502, 2179122, 3348588 ####[facility] [address] [place] [address] UA With Cult Reflexon 2022 Bacteria LM Ql (Urine sed) 1+ /HPF Abnormal Trace [facility] Comment on above: Performed By: #### 2 [id number] #### [facility] [address] [place] [address] Bilirubin Ql (U) Negative Normal Negative [facility] Comment on above: Performed By: #### 2 [id number] #### [facility] [address] [place] [address] Clarity (U) SL CLOUDY Invalid Interpretation Code [facility] Comment on above: Performed By: #### 2 [id number] #### [facility] [address] [place] [address] Color (U) YELLOW Normal Yellow [facility] Comment on above: Performed By: #### 2 [id number] #### [facility] [address] [place] [address] Epithelial cells.squamous LM.HPF (Urine sed) [#/Area] 0-2 Normal 0-2 [facility] Comment on above: Performed By: #### 2 [id number] #### [facility] [address] [place] [address] Glucose Test strip (U) [Mass/Vol] Negative Normal Negative [facility] Comment on above: Performed By: #### 2 [id number] #### [facility] [address] [place] [address] Hemoglobin Ql (U) TRACE Abnormal Negative [facility] Comment on above: Performed By: #### 2 [id number] #### [facility] [address] [place] [address] Ketones (U) [Mass/Vol] Negative Normal Negative [facility] Comment on above: Performed By: #### 2 [id number] #### [facility] [address] [place] [address] [place].plasma/Lithi um.RBC (Bld) [Mass ratio] 0-3 Normal 0-3 [facility] Comment on above: Performed By: #### 2 [id number] #### [facility] [address] [place] [address] Nitrite Ql (U) Negative Normal Negative [facility] Comment on above: Performed By: #### 2 [id number] #### [facility] [address] [place] [address] pH (U) 6.0 [pH] Invalid Interpretation Code 5.0-9.0 [facility] Comment on above: Performed By: #### 2 [id number] #### [facility] [address] [place] [address] Protein (U) [Mass/Vol] Negative Normal Negative [facility] Comment on above: Performed By: #### 2 [id number] #### [facility] [address] [place] [address] Specific gravity (U) [Rel density] 1.020 Invalid Interpretation Code 1.005-1.030 [facility] Comment on above: Performed By: #### 2 [id number] #### [facility] [address] [place] [address] Type of Urine collection method Clean Catch Normal [facility] Comment on above: Performed By: #### 2 [id number] #### [facility] [address] [place] [address] Urobilinogen Qn (U) 0.2 {Juany'U}/dL Normal 0.0-1.0 [facility] Comment on above: Performed By: #### 2 [id number] #### [facility] [address] [place] [address] WBC Auto Ql (U) 3+ Abnormal Negative [facility] Comment on above: Performed By: #### 2 [id number] #### [facility] [address] [place] [address] WBC LM.HPF (Urine sed) [#/Area] /[HPF] Abnormal 0-5 [facility] Comment on above: Performed By: #### 2 [id number] #### [facility] [address] [place] [address] URINALYSISOrdered By: Ashleigh simms on 09-23-2022 Bacteria LM Ql (Urine sed) 1+ /HPF Invalid Interpretation Code Trace/HPF [facility] UA Auto SS Bilirubin Ql (U) Negative (09/23/22 10:26 AM) Normal Negative [facility] UA Auto SS Clarity (U) SL CLOUDY Invalid Interpretation Code [facility] UA Auto SS Color (U) Yellow (09/23/22 10:26 AM) Normal Yellow [facility] UA Auto SS Epithelial cells.squamous LM.HPF (Urine sed) [#/Area] 0-2 /HPF Normal 0-2/HPF [facility] UA Auto SS Glucose Test strip (U) [Mass/Vol] Negative (09/23/22 10:26 AM) Normal Negative [facility] UA Auto SS Hemoglobin Ql (U) Trace *ABN* (09/23/22 10:26 AM) Invalid Interpretation Code Negative [facility] UA Auto SS Ketones (U) [Mass/Vol] Negative (09/23/22 10:26 AM) Normal Negative [facility] UA Auto SS [place].plasma/Lithi um.RBC (Bld) [Mass ratio] 0-3 /HPF Normal 0-3/HPF [facility] UA Auto SS Nitrite Ql (U) Negative (09/23/22 10:26 AM) Normal Negative [facility] UA Auto SS pH (U) 6.0 *NA* (09/23/22 10:26 AM) Invalid Interpretation Code 5.0 - 9.0 [facility] UA Auto SS Protein (U) [Mass/Vol] Negative (09/23/22 10:26 AM) Normal Negative [facility] UA Auto SS Specific gravity (U) [Rel density] 1.020 *NA* (09/23/22 10:26 AM) Invalid Interpretation Code 1.005 - 1.030 [facility] UA Auto SS UA Spec Desc Clean Catch (09/23/22 10:26 AM) Normal [facility] UA Auto SS Urobilinogen Qn (U) 0.1441910 {Juany'U}/dL Normal 0.0 - 1.0 EU/dL [facility] UA Auto SS WBC Auto Ql (U) 3+ *ABN* (09/23/22 10:26 AM) Invalid Interpretation Code Negative [facility] UA Auto SS WBC LM.HPF (Urine sed) [#/Area] /[HPF] Invalid Interpretation Code 0-5/HPF [facility] UA Auto SS XR Chest 2 Viewson 3 XR Chest 2 Views Exam Date/Time: 09/23/2022 11:21 EST Reason for Exam: PRE OP Report IMPRESSION: There are no acute cardiopulmonary changes. CLINICAL HISTORY: PRE OP EXAMINATION: XR Chest 2 Views COMPARISON: Chest x-ray from 05/18/2017 FINDINGS: The cardiomediastinal silhouette is unremarkable. The lungs are free of infiltrates effusions or consolidations. There are severe degenerative changes of the left shoulder. Ordering Provider: Dudley Thomas FINAL REPORT Dictated: 09/23/2022 1:38 pm Cristian Turcios MD, V. Signed (Electronic Signature): 09/23/2022 1:38 pm Signed by: Cristian Turcios MD, V. Transcribed by: JENNIFER Technologist: TAMARA Technical Comments Radiation Dose: Ka,r in mGy = 0 DAP = 0 Normal [facility] eGFRon 09-23-2022 GFR/1.73 sq M.predicted among blacks MDRD (S/P/Bld) [Vol rate/Area] mL/min/{1.73_m2} Normal >=59 [facility] Comment on above: Order Comment: Order added by Discern Expert. Result Comment: eGFR is race adjusted. AA=. Performed By: #### 1 [id number], [id number], [id number], [id number], [id number], [id number] ####[facility] [address] [place] [address] GFR/1.73 sq M.predicted among non-blacks MDRD (S/P/Bld) [Vol rate/Area] mL/min/{1.73_m2} Normal >=59 [facility] Comment on above: Order Comment: Order added by Discern Expert. Result Comment: Family Assessment Worker josse kidney disease could be indicated at eGFR's of less than 60 mL/min/1.73m2. Kidney failure is indicated at less than 15 mL/min/1.73m2. Performed By: #### 1 [id number], [id number], [id number], [id number], [id number], [id number] ####[facility] [address] [place] [address] Physician Orderon 09-17-2022 Physician Order [id number]. [id number] Normal [facility] POINT OF CARE GLUCOSEon 07-01 Glucose [Mass/Vol] 89 mg/dL Normal 74-106 [facility] Comment on above: Performed By: #### P OCGLUC #### [facility] [address] [place], [place] [address] Dr. Maxx Cadena Covid-19 PCR (CVDTB)on SARS-CoV-2 (COVID-19) RNA KIERAN+probe Ql (Unsp spec) Not detected Normal NOT DETECTED [facility] Comment on above: Result Comment: When diagnostic testing is negative, the possibility of a false negative should be considered in the context of a patient's recent exposures and the presence of clinical signs and symptoms consistent with SARS-CoV-2. This test is not yet approved or cleared by the [place] FDA. When there are no FDA-approved or cleared tests available, and other criteria are met, FDA can make tests available under an emergency access mechanism called an Emergency Use Authorization (EUA). The EUA for this test is supported by the Last Picker of Health and Human Service's declaration that circumstances exist to justify the emergency use of in vitro diagnostics for the detection and/or diagnosis of the virus that causes COVID-19. This EUA will remain in effect for the duration of the COVID-19 declaration justifying emergency of IVDs, unless it is terminated or revoked by the FDA (after which the test may no longer be used). Performed By: #### C VDTBH #### [facility] [address] [place], [place] [address] Dr. Maxx Cadena POINT OF CARE GLUCOSEon 05-01 Glucose [Mass/Vol] 70 mg/dL Critically low 74-106 [facility] Comment on above: Performed By: #### P OCGLUC ####[facility] [address] [place], [place] [address]PvDr. Maxx Cadena LEFT HEART CATHon 04-16-2022 LEFT HEART CATH This is a summary report. The complete report is available in the patient's medical record. If you cannot access the medical record, please contact the sending organization for a detailed fax or copy. Impression: Mild irregularities of the coronary arteries Normal LV function with EF 60% SOB and cp not cardiac in origin. Recommendations: Continue medical therapy with risk modification. Coronary Findings Diagnostic Dominance: Right Left Main: The vessel is moderate in size. The vessel exhibits minimal luminal irregularities. Left Anterior Descending: The vessel exhibits minimal luminal irregularities. The LAD is large and gives rise to a large 1st diagonal. There are mild irregularities in both. Left Circumflex: The vessel exhibits minimal luminal irregularities. The circumflex gives rise to PLCx which has mild irregularities. Right Coronary Artery: The vessel is large. The vessel exhibits minimal luminal irregularities. Intervention No interventions have been documented. Left Ventricle Ejection Fraction: 60%%. Normal [facility] Covid-19 PCR (CVDTBH)on SARS-CoV-2 (COVID-19) RNA KIERAN+probe Ql (Unsp spec) Not detected Normal NOT DETECTED [facility] [place] [facility] Comment on above: Result Comment: When diagnostic testing is negative, the possibility of a false negative should be considered in the context of a patient's recent exposures and the presence of clinical signs and symptoms consistent with SARS-CoV-2. This test is not yet approved or cleared by the [place] FDA. When there are no FDA-approved or cleared tests available, and other criteria are met, FDA can make tests available under an emergency access mechanism called an Emergency Use Authorization (EUA). The EUA for this test is supported by the Last Picker of Health and Human Service's declaration that circumstances exist to justify the emergency use of in vitro diagnostics for the detection and/or diagnosis of the virus that causes COVID-19. This EUA will remain in effect for the duration of the COVID-19 declaration justifying emergency of IVDs, unless it is terminated or revoked by the FDA (after which the test may no longer be used). Performed By: #### C VDTB #### [facility] [address] [place], [place] [address] Dr. Maxx Cadena Lipid Profileon 04-02-2022 Cholesterol [Mass/Vol] 168 mg/dL Normal <200 [facility] Comment on above: Result Comment: Cholesterol Guidelines: <200 Desirable 200-240 Borderline >240 Undesirable Performed By: #### Olinda SZYMANSKI CP, CDP #### [facility] [address] [place] [address] Lapidary Apprentice: Bryan Moody MD #### LIPR #### [address] [id number] Lapidary Apprentice: Aleksey Deleon MD Cholesterol in HDL [Mass/Vol] 61 mg/dL Normal >40 [facility] Comment on above: Result Comment: HDL Guidelines: <40 Undesirable 40-59 Borderline >59 Desirable Performed By: #### Olinda SZYMANSKI CP, CDP #### [facility] [address] [place], [place] [phone] Lapidary Apprentice: Bryan Moody MD #### LIPR #### [address] [id number] Lapidary Apprentice: Aleksey Deleon MD Cholesterol in LDL [Mass/Vol] 82 mg/dL Normal 0-130 [facility] Comment on above: Result Comment: LDL Guidelines: <100 Desirable 100-129 Near to/above Desirable 130-159 Borderline >159 Undesirable Direct (measured) LDL and calculated LDL are not interchangeable tests. Performed By: #### Olinda SZYMANSKI CP, CDP #### [facility] [address] [place], [place] [phone] Lapidary Apprentice: Bryan Moody MD #### LIPR #### [address], [place] [phone] Lapidary Apprentice: Aleksey Deleon MD Cholesterol.total/Ch olesterol in HDL [Mass ratio] 2.8 {ratio} Normal <5 [facility] Comment on above: Performed By: #### Olinda SZYMANSKI CP, CDP #### [facility] [address] [place], [place] [phone] Lapidary Apprentice: Bryan Moody MD #### LIPR #### [facility] [address] [place], [place] [id number] Lapidary Apprentice: Aleksey Deleon MD Triglyceride [Mass/Vol] 123 mg/dL Normal <150 [facility] Comment on above: Result Comment: Triglyceride Guidelines: <150 Desirable 150-199 Borderline 200-499 High >499 Very high Based on AHA Guidelines for fasting triglyceride, May 2012. Performed By: #### Olinda SZYMANSKI CP, CDP #### [facility] [address] [place], [place] [phone] Lapidary Apprentice: Bryan Moody MD #### LIPR #### [facility] [address] [place], [place] [phone] Lapidary Apprentice: Aleksey Deleon MD CBC with Auto Differentialon 04-01-2022 Absolute Eos # 0.20 [place] [facility] Absolute Lymph # 1.80 [facility] Absolute [place] # 0.80 [facility] Basophils (Bld) [#/Vol] 0.00 10*3/uL [facility] Basophils/100 WBC (Bld) 1 % 0 - 2 % [facility] Differential Type YES [facility] Eosinophils/100 WBC (Bld) 3 % 0 - 5 % [facility] Hematocrit (Bld) [Volume fraction] 45.1 % 36 - 46 % [facility] Hemoglobin (Bld) [Mass/Vol] 14.9 g/dL 12 - 16 g/dL [facility] Interpretation and review of laboratory results Abnormal [facility] Lymphocytes/100 WBC (Bld) 25 % 15 - 40 % [facility] MCH (RBC) [Entitic mass] 28.0 pg 26 - 34 pg [facility] MCHC (RBC) [Mass/Vol] 32.9 g/dL 31 - 37 g/dL [facility] MCV (RBC) [Entitic vol] 85.2 fL 80 - 100 fL [facility] Monocytes/100 WBC (Bld) 11 % High 4 - 8 % [facility] Platelet distribution width (Bld) [Ratio] 16.6 % High 12.1 - 15.2 % [facility] Platelets (Bld) [#/Vol] 334 10*3/uL [facility] RBC (Bld) [#/Vol] 5.29 10*6/uL High 4 - 5.2 m/uL [facility] Segmented neutrophils/100 WBC (Bld) 60 % 47 - 75 % [facility] Segs Absolute 4.20 [facility] WBC (Bld) [#/Vol] 7.0 10*3/uL [facility] CBC with Diffon 04-01-2022 Abs. Basophil 0.00 k/uL Normal 0.0-0.2 [facility] Comment on above: Performed By: #### Olinda SZYMANSKI CP, CDP #### [facility] [address] [place] [address] Lapidary Apprentice: Bryan Moody MD #### LIPR #### [facility] [employer] [address] [place] [address] [id number] Lapidary Apprentice: Aleksey Deleon MD Abs.Neutrophil (Seg) 4.20 k/uL Normal 2.5-7.0 [facility] Comment on above: Performed By: #### Olinda SZYMANSKI CP, CDP #### [facility] [address] [place] [address] Lapidary Apprentice: Bryan Moody MD #### LIPR #### [place] [id number] Lapidary Apprentice: Aleksey Deleon MD Auto Diff Performed YES Normal [facility] Comment on above: Performed By: #### Olinda FAST CP, CDP #### [facility] [address] [place] [address] Lapidary Apprentice: Bryan Moody MD #### LIPR #### [address] [address] Lapidary Apprentice: Aleksey Deleon MD Basophils/100 WBC (Bld) 1 % Normal 0-2 [facility] Comment on above: Performed By: #### Olinda FAST, CP, CDP #### [facility] [address] [place] [address] Lapidary Apprentice: Bryan Moody MD #### LIPR #### [address] [address] Lapidary Apprentice: Aleksey Deleon MD Eosinophils (Bld) [#/Vol] 0.20 10*3/uL Normal 0.0-0.4 [facility] Comment on above: Performed By: #### Olinda FAST, CP, CDP #### [facility] [address] [place] [address] Lapidary Apprentice: Bryan Moody MD #### LIPR #### [address] [address] Lapidary Apprentice: Aleksey Deleon MD Eosinophils/100 WBC (Bld) 3 % Normal 0-5 [facility] Comment on above: Performed By: #### Olinda FAST, CP, CDP #### [facility] [address] [place] [address] Lapidary Apprentice: Bryan Moody MD #### LIPR #### [address] [address] Lapidary Apprentice: Aleksey Deleon MD Erythrocyte distribution width (RBC) [Ratio] 16.6 % High 12.1-15.2 [facility] Comment on above: Performed By: #### Z FAST, CP, CDP #### [facility] [address] [place], [place] [phone] Lapidary Apprentice: Bryan Moody MD #### LIPR #### [facility] [address] [place], [place] [phone] Lapidary Apprentice: Aleksey Deleon MD Hematocrit (Bld) [Volume fraction] 45.1 % Normal 36-46 [facility] Comment on above: Performed By: #### Z FAST, CP, CDP #### [facility] [address] [place], [place] [phone] Lapidary Apprentice: Bryan Moody MD #### LIPR #### [place] [address] [place], [place] [phone] Lapidary Apprentice: Aleksey Deleon MD Hemoglobin (Bld) [Mass/Vol] 14.9 g/dL Normal 12.0-16.0 [facility] Comment on above: Performed By: #### Olinda FAST, CP, CDP #### [facility] [address] [place] [address] Lapidary Apprentice: Bryan Moody MD #### LIPR #### [address] [phone] Lapidary Apprentice: Aleksey Deleon MD Lymphocytes (Bld) [#/Vol] 1.80 10*3/uL Normal 1.0-4.8 [facility] Comment on above: Performed By: #### Olinda FAST, CP, CDP #### [facility] [address] [place] [address] Lapidary Apprentice: Bryan Moody MD #### LIPR #### [address] [phone] Lapidary Apprentice: Aleksey Deleon MD Lymphocytes/100 WBC (Bld) 25 % Normal 15-40 [facility] Comment on above: Performed By: #### Olinda FAST, CP, CDP #### [facility] [address] [place], [place] [phone] Lapidary Apprentice: Bryan Moody MD #### LIPR #### [address] [phone] Lapidary Apprentice: Aleksey Deleon MD MCH (RBC) [Entitic mass] 28.0 pg Normal 26-34 [facility] Comment on above: Performed By: #### Olinda FAST, CP, CDP #### [facility] [address] [place] [address] Lapidary Apprentice: Bryan Moody MD #### LIPR #### [address] [phone] Lapidary Apprentice: Aleksey Deleon MD MCHC (RBC) [Mass/Vol] 32.9 g/dL Normal 31-37 [facility] Comment on above: Performed By: #### Olinda FAST, CP, CDP #### [facility] [address] [place], [place] [phone] Lapidary Apprentice: Bryan Moody MD #### LIPR #### [address] [phone] Lapidary Apprentice: Aleksey Deleon MD MCV (RBC) [Entitic vol] 85.2 fL Normal 80-100 [facility] Comment on above: Performed By: #### Olinda FAST, CP, CDP #### [facility] [address] [place], [place] [phone] Lapidary Apprentice: Bryan Moody MD #### LIPR #### [address] [phone] Lapidary Apprentice: Aleksey Deleon MD Monocytes (Bld) [#/Vol] 0.80 10*3/uL Normal 0.0-1.0 [facility] Comment on above: Performed By: #### Olinda SZYMANSKI CP, CDP #### [facility] [address] [place], [place] [phone] Lapidary Apprentice: Bryan Moody MD #### LIPR #### [facility] [address] [place], [place] [phone] Lapidary Apprentice: Aleksey Deleon MD Monocytes/100 WBC (Bld) 11 % High 4-8 [facility] Comment on above: Performed By: #### Olinda SZYMANSKI CP, CDP #### [facility] [address] [place], [place] [phone] Lapidary Apprentice: Bryan Moody MD #### LIPR #### [address] [phone] Lapidary Apprentice: Aleksey Deleon MD Neutrophil (Seg) 60 % Normal 47-[address] [facility] Comment on above: Performed By: #### Olinda SZYMANSKI CP, CDP #### [facility] [address] [place], [place] [phone] Lapidary Apprentice: Bryan Moody MD #### LIPR #### [address] [address] Lapidary Apprentice: Aleksey Deleon MD Platelets (Bld) [#/Vol] 334 10*3/uL Normal 140-450 [facility] Comment on above: Performed By: #### Olinda SZYMANSKI CP, CDP #### [facility] [address] [place], [place] [phone] Lapidary Apprentice: Bryan Moody MD #### LIPR #### [address] [address] Lapidary Apprentice: Aleksey Deleon MD RBC (Bld) [#/Vol] 5.29 10*6/uL High 4.0-5.2 [facility] Comment on above: Performed By: #### Olinda SZYMANSKI CP, CDP #### [facility] [address] [place], [place] [phone] Lapidary Apprentice: Bryan Moody MD #### LIPR #### [facility] [employer] [address] [place], [place] [phone] Lapidary Apprentice: Aleksey Deleon MD WBC (Bld) [#/Vol] 7.0 10*3/uL Normal 3.5-11.0 [facility] Comment on above: Performed By: #### Olinda SZYMANSKI CP, CDP #### [facility] [address] [place] [address] Lapidary Apprentice: Bryan Moody MD #### LIPR #### [place] [address] [place], [place] [phone] Lapidary Apprentice: Aleksey Deleon MD Comp Metabolic Profon 2021 (cont.) Normal [facility] Comment on above: Result Comment: Aver age GFR for 70 or more years old: 75 mL/min/1.73sq m Chronic Kidney Disease: <60 mL/min/1.73sq m Kidney failure: <15 mL/min/1.73sq m eGFR calculated using average adult body mass. Additional eGFR calculator available at: http://[email or web address].com.[place]ala/multiple_crcl_2011.htm Performed By: #### Olinda SZYMANSKI CP, CDP #### [facility] [address] [place] [address] Lapidary Apprentice: Bryan Moody MD #### LIPR #### [facility] [employer] [address] [place], [place] [phone] Lapidary Apprentice: Aleksey Deleon MD Albumin [Mass/Vol] 3.6 g/dL Normal 3.5-5.2 [facility] Comment on above: Performed By: #### Olinda SZYMANSKI CP, CDP #### [facility] [address] [place] [address] Lapidary Apprentice: Bryan Moody MD #### LIPR #### [facility] [address] [place] [address] Lapidary Apprentice: Aleksey Deleon MD Alkaline Phos 140 U/L High 35-104 [facility] Comment on above: Performed By: #### Olinda SZYMANSKI CP, CDP #### [facility] [address] [place] [address] Lapidary Apprentice: Bryan Moody MD #### LIPR #### [address] [address] Lapidary Apprentice: Aleksey Deleon MD ALT [Catalytic activity/Vol] 26 U/L Normal 5-33 [facility] Comment on above: Performed By: #### Olinda SZYMANSKI CP, CDP #### [facility] [address] [place] [address] Lapidary Apprentice: Bryan Moody MD #### LIPR #### [address] [address] Lapidary Apprentice: Aleksey Deleon MD Anion gap [Moles/Vol] 11 mmol/L Normal 9-17 [facility] Comment on above: Performed By: #### Olinda SZYMANSKI CP, CDP #### [facility] [address] [place] [address] Lapidary Apprentice: Bryan Moody MD #### LIPR #### [address] [address] Lapidary Apprentice: Aleksey Deleon MD AST [Catalytic activity/Vol] 17 U/L Normal <32 [facility] Comment on above: Performed By: #### Olinda SZYMANSKI CP, CDP #### [facility] [address] [place] [address] Lapidary Apprentice: Bryan Moody MD #### LIPR #### [address] [address] Lapidary Apprentice: Aleksey Deleon MD Bilirubin [Mass/Vol] 0.4 mg/dL Normal 0.30-1.20 [facility] Comment on above: Performed By: #### Olinda SZYMANSKI CP, CDP #### [facility] [address] [place], [place] [phone] Lapidary Apprentice: Bryan Moody MD #### LIPR #### [address] [phone] Lapidary Apprentice: Aleksey Deloen MD BUN/CRE Ratio 27 High 9-20 [facility] Comment on above: Performed By: #### Olinda FAST CP, CDP #### [facility] [address] [place] [address] Lapidary Apprentice: Bryan Moody MD #### LIPR #### [address] [phone] Lapidary Apprentice: Aleksey Deleon MD Calcium [Mass/Vol] 9.4 mg/dL Normal 8.6-10.4 [facility] Comment on above: Performed By: #### Olinda FAST CP, CDP #### [facility] [address] [place] [address] Lapidary Apprentice: Bryan Moody MD #### LIPR #### [address] [address] Lapidary Apprentice: Aleksey Deleon MD Chloride [Moles/Vol] 104 mmol/L Normal 98-107 [facility] Comment on above: Performed By: #### Olinda FAST, CP, CDP #### [facility] [address] [place], [place] [phone] Lapidary Apprentice: Bryan Moody MD #### LIPR #### [address] [address] Lapidary Apprentice: Aleksey Deleon MD CO2 [Moles/Vol] 25 mmol/L Normal 20-31 [facility] Comment on above: Performed By: #### Olinda FAST, CP, CDP #### [facility] [address] [place] [address] Lapidary Apprentice: Bryan Moody MD #### LIPR #### [facility] [address] [place] [address] Lapidary Apprentice: Aleksey Deleon MD Creatinine [Mass/Vol] 0.52 mg/dL Normal 0.50-0.90 [facility] Comment on above: Performed By: #### Olinda FAST, CP, CDP #### [facility] [address] [place] [address] Lapidary Apprentice: Bryan Moody MD #### LIPR #### [address] [address] Lapidary Apprentice: Aleksey Deleon MD GFR, Amer >60 Normal >[address] [facility] Comment on above: Performed By: #### Olinda FAST, CP, CDP #### [facility] [address] [place] [address] Lapidary Apprentice: Bryan Moody MD #### LIPR #### [facility] [address] [place] [id number] Lapidary Apprentice: Aleksey Deleon MD GFR,non Amer >60 Normal >60 [facility] Comment on above: Performed By: #### Olinda FAST, CP, CDP #### [facility] [address] [place] [address] Lapidary Apprentice: Bryan Moody MD #### LIPR #### [facility] [address] [place] [address] Lapidary Apprentice: Aleksey Deleon MD Glucose [Mass/Vol] 100 mg/dL High 70-99 [facility] Comment on above: Performed By: #### Olinda FAST, CP, CDP #### [facility] [address] [place], [place] [phone] Lapidary Apprentice: Bryan Moody MD #### LIPR #### [address] [phone] Lapidary Apprentice: Aleksey Deleon MD Potassium [Moles/Vol] 4.2 mmol/L Normal 3.7-5.3 [facility] Comment on above: Performed By: #### Olinda SZYMANSKI CP, CDP #### [facility] [address] [place], [place] [phone] Lapidary Apprentice: Bryan Moody MD #### LIPR #### [address] [phone] Lapidary Apprentice: Aleksey Deleon MD Protein [Mass/Vol] 6.6 g/dL Normal 6.4-8.3 [facility] Comment on above: Performed By: #### Olinda SZYMANSKI CP, CDP #### [facility] [address] [place] [phone] Lapidary Apprentice: Bryan Moody MD #### LIPR #### [address] [phone] Lapidary Apprentice: Aleksey Deleon MD Sodium [Moles/Vol] 140 mmol/L Normal 135-144 [facility] Comment on above: Performed By: #### Olinda SZYMANSKI CP, CDP #### [facility] [address] [place], [place] [phone] Lapidary Apprentice: Bryan Moody MD #### LIPR #### [address] [phone] Lapidary Apprentice: Aleksey Deleon MD Urea nitrogen [Mass/Vol] 14 mg/dL Normal 8-23 [facility] Comment on above: Performed By: #### Olinda SZYMANSKI CP, CDP #### [facility] [address] [place] [address] Lapidary Apprentice: Bryan Moody MD #### LIPR #### [facility] [address] [place] [phone] Lapidary Apprentice: Aleksey Deleon MD [facility] Metabolic Pane [facility] 04-01-2022 Albumin [Mass/Vol] 3.6 g/dL 3.5 - 5.2 g/dL [facility] ALP (Bld) [Catalytic activity/Vol] 140 U/L High 35 - 104 U/L [facility] ALT [Catalytic activity/Vol] 26 U/L 5 - 33 U/L [facility] Anion gap [Moles/Vol] 11 mmol/L 9 - 17 mmol/L [facility] AST [Catalytic activity/Vol] 17 U/L NINF - 32 U/L [facility] Bilirubin [Mass/Vol] 0.4 mg/dL 0.3 - 1.2 mg/dL [facility] Calcium [Mass/Vol] 9.4 mg/dL 8.6 - 10. 4 mg/dL [facility] Chloride [Moles/Vol] 104 mmol/L 98 - 107 mmol/L [facility] CO2 [Moles/Vol] 25 mmol/L 20 - 31 mmol/L [facility] Creatinine [Mass/Vol] 0.52 mg/dL 0.5 - 0.9 mg/dL [facility] Free PSA/Total PSA [Mass fraction] 6.6 g/dL 6.4 - 8.3 g/dL [facility] GFR >60 60 - PI NF mL/min [facility] GFR Non- >60 60 - PINF mL/min [facility] GFR/1.73 sq M.predicted MDRD (S/P/Bld) [Vol rate/Area] [facility] Comment on above: Average GFR for 70 o r more years old: 75 mL/min/1.73sq m Chronic Kidney Disease: <60 mL/min/1.73sq m Kidney failure: <15 mL/min/1.73sq m eGFR calculated using average adult body mass. Additional eGFR calculator available at: http://www.WyzAnt.com.com/multiple_crcl_2012.htm Glucose [Mass/Vol] 100 mg/dL High 70 - 99 mg/dL [facility] Interpretation and review of laboratory results Abnormal [facility] Potassium [Moles/Vol] 4.2 mmol/L 3.7 - 5.3 mmol/L [facility] Sodium [Moles/Vol] 140 mmol/L 135 - 144 mmol/L [facility] Urea nitrogen (BldV) [Mass/Vol] 14 mg/dL 8 - 23 mg/dL [facility] Urea nitrogen/Creatinine (Bld) [Mass ratio] 27 High 9 - 20 [facility] Patient Fasting?on 2 Patient Fasting? YES [facility] HOSPITAL Patient fasting?on 2 Patient fasting? YES Normal [facility] Comment on above: Performed By: #### Olinda SZYMANSKI CP, CDP #### [facility] [address] [place] [address] Lapidary Apprentice: Bryan Moody MD #### LIPR #### [facility] [address] [place] [address] Lapidary Apprentice: Aleksey Deleon MD CARDIAC STRESS TESTon 2021 CARDIAC STRESS TEST [facility] [address] [place] [address] CARDIAC STRESS TEST PATIENT NAME: NAHED PETERSON : 1945 MED REC NO: [id number] ROOM: ACCOUNT NO: [id number] ADMIT DATE: 03/02/2022 PROVIDER: Sreedhar Floyd DATE OF STUDY: 03/02/2022 NAME OF TEST: Lexiscan stress test. INDICATION: Chest pain. IMPRESSION: 1. We gave 0.4 mg of Lexiscan intravenously. 2. This was followed in 20 seconds by Cardiolite infusion. 3. There was no chest pain. 4. There was no ST depression. 5. It was an overall negative Lexiscan stress test. 6. Cardiolite to follow. SREEDHAR FLOYD [id number] Doc#: [id number] CC: Shyla Pruett Normal [facility] CARDIAC STRESS TESTon 2021 CARDIAC STRESS TEST [address] [address] CARDIAC STRESS TEST PATIENT NAME: NAHED PETERSON : 1945 MED REC NO: [id number] ROOM: ACCOUNT NO: [id number] ADMIT DATE: 03/02/2022 PROVIDER: Carlo Lopez DATE OF STUDY: 03/02/2022 Cardiovascular Diagnostics Department Ordering Provider: Sreedhar Floyd MD Primary Care Provider: Shyla Pruett MD Interpreting Physician: Carlo Lopez MD MYOCARDIAL PERFUSION STRESS IMAGING The stress ECG results are reported separately. NUCLEAR IMAGING RESULTS: The overall quality of the study is good. Moderate attenuation artifact was seen. There is no evidence of abnormal lung uptake. Additionally, the right ventricle appears normal. The left ventricular cavity is noted to be normal in size on stress images. There is evidence of transient ischemic dilatation (TID) of the left ventricle (1.33). Gated SPECT imaging reveals normal myocardial thickening and wall motion with a calculated left ventricular ejection fraction (EF) of 81%. The rest images demonstrated a small/moderate perfusion abnormality of mild/moderate intensity in the anterior region(s) which is most likely due to artifact. On stress imaging, a small/moderate perfusion abnormality of mild intensity was noted in the anteroseptal and lateral region(s) which may be due to artifact. IMPRESSION: 1. Equivocal myocardial perfusion study. There is a small/moderate perfusion defect of mild intensity in the anteroseptal and lateral region(s) during stress imaging, which is most consistent with ischemia but may be due to artifact. In addition, transient ischemic dilatation (TID) of the left ventricle is seen, which can be seen with uncontrolled hypertension, severe left main coronary artery disease or severe three-vessel coronary artery disease (TID 1.33). 2. Global left ventricular systolic function was normal without regional wall motion abnormalities. Overall these results are most consistent with an intermediate/high risk for significant coronary artery disease. Additional testing including cardiac catheterization may be indicated. The results of this test were discussed with Dr. Floyd on 03/02/2022 at 5:27 p.m. CARLO LOPEZ BHAVNA/VERNON_LAWSON Doc#: Unknown CC: Sreedhar Pruett Normal [facility] Stress test, diana 08-0 Carlo Lopez MD - 03/03/2022 10:10 [place] [address] CARDIAC STRESS TEST PATIENT NAME: NAHED PETERSON : 1945 MED REC NO: [id number] ROOM: ACCOUNT NO: [id number] ADMIT DATE: 03/02/2022 PROVIDER: Carlo Lopez DATE OF STUDY: 03/02/2022 Cardiovascular Diagnostics Department Ordering Provider: Sreedhar Floyd MD Primary Care Provider: Shyla Pruett MD Interpreting Physician: Carlo oLpez MD MYOCARDIAL PERFUSION STRESS IMAGING The stress ECG results are reported separately. NUCLEAR IMAGING RESULTS: The overall quality of the study is good. Moderate attenuation artifact was seen. There is no evidence of abnormal lung uptake. Additionally, the right ventricle appears normal. The left ventricular cavity is noted to be normal in size on stress images. There is evidence of transient ischemic dilatation (TID) of the left ventricle (1.33). Gated SPECT imaging reveals normal myocardial thickening and wall motion with a calculated left ventricular ejection fraction (EF) of 81%. The rest images demonstrated a small/moderate perfusion abnormality of mild/moderate intensity in the anterior region(s) which is most likely due to artifact. On stress imaging, a small/moderate perfusion abnormality of mild intensity was noted in the anteroseptal and lateral region(s) which may be due to artifact. IMPRESSION: 1. Equivocal myocardial perfusion study. There is a small/moderate perfusion defect of mild intensity in the anteroseptal and lateral region(s) during stress imaging, which is most consistent with ischemia but may be due to artifact. In addition, transient ischemic dilatation (TID) of the left ventricle is seen, which can be seen with uncontrolled hypertension, severe left main coronary artery disease or severe three-vessel coronary artery disease (TID 1.33). 2. Global left ventricular systolic function was normal without regional wall motion abnormalities. Overall these results are most consistent with an intermediate/high risk for significant coronary artery disease. Additional testing including cardiac catheterization may be indicated. The results of this test were discussed with Dr. Floyd on 03/02/2022 at 5:27 p.m. CARLO LOPEZ BHAVNA/VERNON_YOKASTAIT Doc#: Unknown CC: Sreedhar Pruett [facility] Work Phone: Stress test, lexiscanOrdered By: Carlo Lopez on 03-03-2022 [facility] Work Phone: NM MYOCARDIAL SPECT REST EXE RCISE OR RXon 03-02-2022 NM MYOCARDIAL SPECT REST EXERCISE OR RX Radiology exam is complete. No Radiologist dictation. Please follow up with ordering provider. Final result Normal [facility] No Panel Informationon 03-02 Radiology exam is complete. No Radiologist dictation. Please follow up with ordering provider. PN RIS CONSOLIDATED Vitamin D 25 OHon 02-24-2022 Vitamin D 25 OH 36.6 ng/mL Normal >29.9 [facility] Comment on above: Result Comment: Reference Range: Vitamin D status Range Deficiency <20 ng/mL Mild Deficiency 20-30 ng/mL Sufficiency 30-100 ng/mL Toxicity >100 ng/mL Performed By: #### V D25, LIPR ####[facility] [address] [place] [address] Lab Director: Aleksey Deleon MD#### TSHX, CDP, CP, MG, ZFAST ####[facility] [address] [place] [address] lab Director: Bryan Moody MD CBC with Auto Differentialon 02-23-2022 Absolute Eos # 0.10 [facility] Bambisa Absolute Lymph # 1.40 [facility] Bambisa Absolute Chisago # 0.80 [facility] Bambisa Basophils (Bld) [#/Vol] 0.00 10*3/uL [facility] Basophils/100 WBC (Bld) 1 % 0 - 2 % [facility] Differential Type YES [facility] Eosinophils/100 WBC (Bld) 2 % 0 - 5 % [facility] Hematocrit (Bld) [Volume fraction] 43.5 % 36 - 46 % [facility] Hemoglobin (Bld) [Mass/Vol] 13.9 g/dL 12 - 16 g/dL [facility] Interpretation and review of laboratory results Abnormal [facility] Lymphocytes/100 WBC (Bld) 23 % 15 - 40 % [facility] MCH (RBC) [Entitic mass] 26.8 pg 26 - 34 pg [facility] MCHC (RBC) [Mass/Vol] 32.0 g/dL 31 - 37 g/dL [facility] MCV (RBC) [Entitic vol] 83.6 fL 80 - 100 fL [facility] Monocytes/100 WBC (Bld) 12 % High 4 - 8 % [facility] Platelet distribution width (Bld) [Ratio] 18.9 % High 12.1 - 15.2 % [facility] Platelets (Bld) [#/Vol] 303 10*3/uL [facility] RBC (Bld) [#/Vol] 5.20 10*6/uL 4 - 5.2 m/uL [facility] Segmented neutrophils/100 WBC (Bld) 62 % 47 - 75 % [facility] Segs Absolute 4.00 [facility] WBC (Bld) [#/Vol] 6.3 10*3/uL [facility] CBC with Diffon 02-23-2022 Abs. Basophil 0.00 k/uL Normal 0.0-0.2 [facility] Comment on above: Performed By: #### V D25, LIPR ####[facility] [address] [place], [place] [id number] [facility] Director: Aleksey Deleon MD#### TSHX, CDP, CP, MG, ZFAST ####[facility] [address] [place], [place] [id number] Lab Director: Bryan Moody MD Abs.Neutrophil (Seg) 4.00 k/uL Normal 2.5-7.0 [facility] Comment on above: Performed By: #### V D25, LIPR ####[address] [id number] Lab Director: Aleksey Deleon MD#### TSHX, CDP, CP, MG, ZFAST ####[facility] [address] [place], [place] [id number] lab Director: Bryan Moody MD Auto Diff Performed YES Normal [facility] Comment on above: Performed By: #### V D25, LIPR ####[address] [address] Lab Director: Aleksey Deleon MD#### TSHX, CDP, CP, MG, ZFAST ####[facility] [address] [place], [place] [phone] lab Director: Bryan Moody MD Basophils/100 WBC (Bld) 1 % Normal 0-2 [facility] Comment on above: Performed By: #### V D25, LIPR ####[address] [address] Lab Director: Aleksey Deleon MD#### TSHX, CDP, CP, MG, ZFAST ####[facility] [address]xn[address] [place], [place] [id number] Lab Director: Bryan Moody MD Eosinophils (Bld) [#/Vol] 0.10 10*3/uL Normal 0.0-0.4 [facility] Comment on above: Performed By: #### V D25, LIPR ####[address] [id number] Lab Director: Aleksey Deleon MD#### TSHX, CDP, CP, MG, ZFAST ####[facility] [address] [place], [place] [id number] Lab Director: Bryan Moody MD Eosinophils/100 WBC (Bld) 2 % Normal 0-5 [facility] Comment on above: Performed By: #### V D25, LIPR ####[address] [place] [address] Lab Director: Aleksey Deleon MD#### TSHX, CDP, CP, MG, ZFAST ####[facility] [address] [place] [id number] lab Director: Bryan Moody MD Erythrocyte distribution width (RBC) [Ratio] 18.9 % High 12.1-15.2 [facility] Comment on above: Performed By: #### V D25, LIPR ####[place] [address] Lab Director: Aleksey Deleon MD#### TSHX, CDP, CP, MG, ZFAST ####[facility] [address] [place] [address] lab Director: Bryan Moody MD Hematocrit (Bld) [Volume fraction] 43.5 % Normal 36-46 [facility] Comment on above: Performed By: #### V D25, LIPR ####[place] [address] Lab Director: Aleksey Deleon MD#### TSHX, CDP, CP, MG, ZFAST ####[facility] Qma[address] [place] [address] Lab Director: Bryan Moody MD Hemoglobin (Bld) [Mass/Vol] 13.9 g/dL Normal 12.0-16.0 [facility] Comment on above: Performed By: #### V D25, LIPR ####[address] [place] [address] Lab Director: Aleksey Deleon MD#### TSHX, CDP, CP, MG, ZFAST ####[facility] [address] [place], [place] [id number] lab Director: Bryan Moody MD Lymphocytes (Bld) [#/Vol] 1.40 10*3/uL Normal 1.0-4.8 [facility] Comment on above: Performed By: #### V D25, LIPR ####[address] [address] Lab Director: Aleksey Deleon MD#### TSHX, CDP, CP, MG, ZFAST ####[facility] [address] [place], [place] [id number] lab Director: Bryan Moody MD Lymphocytes/100 WBC (Bld) 23 % Normal 15-40 [facility] Comment on above: Performed By: #### V D25, LIPR ####[address] [address] Lab Director: Aleksey Deleon MD#### TSHX, CDP, CP, MG, ZFAST ####[facility] Ebf[address] [place] [address] Lab Director: Bryan Moody MD MCH (RBC) [Entitic mass] 26.8 pg Normal 26-34 [facility] Comment on above: Performed By: #### V D25, LIPR ####[address] [address] Lab Director: Aleksey Deleon MD#### TSHX, CDP, CP, MG, ZFAST ####[facility] [address] [place], [place] [id number] Lab Director: Bryan Moody MD MCHC (RBC) [Mass/Vol] 32.0 g/dL Normal 31-37 [facility] Comment on above: Performed By: #### V D25, LIPR ####[facility] [address] [place] [address] Lab Director: Aleksey Deleon MD#### TSHX, CDP, CP, MG, ZFAST ####[facility] [address] [place] [address] Lab Director: Bryan Moody MD MCV (RBC) [Entitic vol] 83.6 fL Normal 80-100 [facility] Comment on above: Performed By: #### V D25, LIPR ####[place] [address] Lab Director: Aleksey Deleon MD#### TSHX, CDP, CP, MG, ZFAST ####[facility] [address] [place], [place] [address])[phone] Director: Bryan Moody MD Monocytes (Bld) [#/Vol] 0.80 10*3/uL Normal 0.0-1.0 [facility] Comment on above: Performed By: #### V D25, LIPR ####[place] [address] Lab Director: Aleksey Deleon MD#### TSHX, CDP, CP, MG, ZFAST ####[facility] [address] [place] [address] Lab Director: Bryan Moody MD Monocytes/100 WBC (Bld) 12 % High 4-8 [facility] Comment on above: Performed By: #### V D25, LIPR ####[place] [address] Lab Director: Aleksey Deleon MD#### TSHX, CDP, CP, MG, ZFAST ####[facility] [address] [place] [address] Lab Director: Bryan Moody MD Neutrophil (Seg) 62 % Normal 47-[address] [facility] Comment on above: Performed By: #### V D25, LIPR ####[address] [place] [address] Lab Director: Aleksey Deleon MD#### TSHX, CDP, CP, MG, ZFAST ####[facility] N[address] [place], [place] 2872490 Lab Director: Bryan Moody MD Platelets (Bld) [#/Vol] 303 10*3/uL Normal 140-450 [facility] Comment on above: Performed By: #### V D25, LIPR ####[address] [address] Lab Director: Aleksey Deleon MD#### TSHX, CDP, CP, MG, ZFAST ####[facility] [address] [place] [address] Lab Director: Bryan Moody MD RBC (Bld) [#/Vol] 5.20 10*6/uL Normal 4.0-5.2 [facility] Comment on above: Performed By: #### V D25, LIPR ####[address] [place] [address] Lab Director: Aleksey Deleon MD#### TSHX, CDP, CP, MG, ZFAST ####[facility] Rvh[address] [place], [place] [phone] Director: Bryan Moody MD WBC (Bld) [#/Vol] 6.3 10*3/uL Normal 3.5-11.0 [facility] Comment on above: Performed By: #### V D25, LIPR ####[address] [place] [address] Lab Director: Aleksey Deleon MD#### TSHX, CDP, CP, MG, ZFAST ####[facility] B[address] [place], [place] [phone] Lab Director: Bryan Moody MD Comp Metabolic Profon 2021 (cont.) Normal [facility] Comment on above: Result Comment: Aver age GFR for 70 or more years old: 75 mL/min/1.73sq m Chronic Kidney Disease: <60 mL/min/1.73sq m Kidney failure: <15 mL/min/1.73sq m eGFR calculated using average adult body mass. Additional eGFR calculator available at: http://www.WyzAnt.com.Ooolala/multiple_crcl_2011.htm Performed By: #### V D25, LIPR ####[address] [place], [place] 6379208 Lab Director: Aleksey Deleon MD#### TSHX, CDP, CP, MG, ZFAST ####[facility] V[address] [place], [place] [id number] Lab Director: Bryan Moody MD Albumin [Mass/Vol] 3.8 g/dL Normal 3.5-5.2 [facility] Comment on above: Performed By: #### V D25, LIPR ####[address] [place] [address] Lab Director: Aleksey Deleon MD#### TSHX, CDP, CP, MG, ZFAST ####[facility] [address] [place], [place] [id number] Lab Director: Bryan Moody MD Alkaline Phos 175 U/L High 35-104 [facility] Comment on above: Performed By: #### V D25, LIPR ####[facility] [place], [place] 8572308 Lab Director: Aleksey Deleon MD#### TSHX, CDP, CP, MG, ZFAST ####[facility] [address] [facility], [place] 5149190 Lab Director: Bryan Moody MD ALT [Catalytic activity/Vol] 29 U/L Normal 5-33 [facility] Comment on above: Performed By: #### V D25, LIPR ####[facility] [address] [place] [address] Lab Director: Aleksey Deleon MD#### TSHX, CDP, CP, MG, ZFAST ####[facility] Qfe[address] [place], [place] 9279590 lab Director: Bryan Moody MD Anion gap [Moles/Vol] 12 mmol/L Normal 9-17 [facility] Comment on above: Performed By: #### V D25, LIPR ####[address] [place] [address] Lab Director: Aleksey Deleon MD#### TSHX, CDP, CP, MG, ZFAST ####[facility] [address] [place], [place] [phone] Lab Director: Bryan Moody MD AST [Catalytic activity/Vol] 17 U/L Normal <32 [facility] Comment on above: Performed By: #### V D25, LIPR ####[address] [place] [address] Lab Director: Aleksey Deleon MD#### TSHX, CDP, CP, MG, ZFAST ####[facility] [address] [place], [place] [id number] Lab Director: Bryan Moody MD Bilirubin [Mass/Vol] 0.33 mg/dL Normal 0.30-1.20 [facility] Comment on above: Performed By: #### V D25, LIPR ####[facility] [place], [place] 3969308 Lab Director: Aleksey Deleon MD#### TSHX, CDP, CP, MG, ZFAST ####[facility] [address] [place], [place] 8250790 Lab Director: Bryan Moody MD BUN/CRE Ratio 26 High 9-20 [facility] Comment on above: Performed By: #### V D25, LIPR ####[address] [place], [place] 1630708 Lab Director: Aleksey Deleon MD#### TSHX, CDP, CP, MG, ZFAST ####[facility] Mfm[address] [place], [place] 9415190 Lab Director: Bryan Moody MD Calcium [Mass/Vol] 8.5 mg/dL Low 8.6-10.4 [facility] Comment on above: Performed By: #### V D25, LIPR ####[address] [address] Lab Director: Aleksey Deleon MD#### TSHX, CDP, CP, MG, ZFAST ####[facility] [address] [place], [place] 4507490 Lab Director: Bryan Moody MD Chloride [Moles/Vol] 104 mmol/L Normal 98-107 [facility] Comment on above: Performed By: #### V D25, LIPR ####[facility] [address] [place] [address] Lab Director: Aleksey Deleon MD#### TSHX, CDP, CP, MG, ZFAST ####[facility] [address]jc[address] [place], [place] 5797490 Lab Director: Bryan Moody MD CO2 [Moles/Vol] 26 mmol/L Normal 20-31 [facility] Comment on above: Performed By: #### V D25, LIPR ####[address] [place], [place] 8740108 lab Director: Aleksey Deleon MD#### TSHX, CDP, CP, MG, ZFAST ####[facility] [address] [place], [place] 6813390 lab Director: Bryan Moody MD Creatinine [Mass/Vol] 0.62 mg/dL Normal 0.50-0.90 [facility] Comment on above: Performed By: #### V D25, LIPR ####[address] [phone] lab Director: Aleksey Deleon MD#### TSHX, CDP, CP, MG, ZFAST ####[facility] [address] [place] 9369190 lab Director: Bryan Moody MD GFR, Amer >60 Normal >[address] [facility] Comment on above: Performed By: #### V D25, LIPR ####[address] [id number] lab Director: Aleksey Deleon MD#### TSHX, CDP, CP, MG, ZFAST ####[facility] [address] [place] 9369190 lab Director: Bryan Moody MD GFR,non Amer >60 Normal >60 [facility] Comment on above: Performed By: #### V D25, LIPR ####[address] [phone] Lab Director: Aleksey Deleon MD#### TSHX, CDP, CP, MG, ZFAST ####[facility] [address] [place], [place] 2375690 lab Director: Bryan Moody MD Glucose [Mass/Vol] 167 mg/dL High 70-99 [facility] Comment on above: Performed By: #### V D25, LIPR ####[address], [place] 7242308 Lab Director: Aleksey Deleon MD#### TSHX, CDP, CP, MG, ZFAST ####[facility] T[address] [place] [address] lab Director: Bryan Moody MD Potassium [Moles/Vol] 4.1 mmol/L Normal 3.7-5.3 [facility] Comment on above: Performed By: #### V D25, LIPR ####[address] [place] [address] Lab Director: Aleksey Deleon MD#### TSHX, CDP, CP, MG, ZFAST ####[facility] [address] [place], [place] [phone] lab Director: Bryan Moody MD Protein [Mass/Vol] 6.2 g/dL Low 6.4-8.3 [facility] Comment on above: Performed By: #### V D25, LIPR ####[address] [id number] Lab Director: Aleksey Deleon MD#### TSHX, CDP, CP, MG, ZFAST ####[facility] [address] [place] [address] lab Director: Bryan Moody MD Sodium [Moles/Vol] 142 mmol/L Normal 135-144 [facility] Comment on above: Performed By: #### V D25, LIPR ####[address] [place] [address] Lab Director: Aleksey Deleon MD#### TSHX, CDP, CP, MG, ZFAST ####[facility] Xep[address] [place], [place] 1227190 Lab Director: Bryan Moody MD Urea nitrogen [Mass/Vol] 16 mg/dL Normal 8-23 [facility] Comment on above: Performed By: #### V D25, LIPR ####[facility] [address] [place], [place] 7183708 Lab Director: Aleksey Deleon MD#### TSHX, CDP, CP, MG, ZFAST ####[facility] [address] [place], [place] 6379[address] lab Director: Bryan Moody MD Comprehensive Metabolic Pane [facility] 02-23-2022 Albumin [Mass/Vol] 3.8 g/dL 3.5 - 5.2 g/dL [facility] ALP (Bld) [Catalytic activity/Vol] 175 U/L High 35 - 104 U/L [facility] ALT [Catalytic activity/Vol] 29 U/L 5 - 33 U/L [facility] Anion gap [Moles/Vol] 12 mmol/L 9 - 17 mmol/L [facility] AST [Catalytic activity/Vol] 17 U/L NINF - 32 U/L [facility] Bilirubin [Mass/Vol] 0.33 mg/dL 0.3 - 1.2 mg/dL [facility] Calcium [Mass/Vol] 8.5 mg/dL Low 8.6 - 10. 4 mg/dL [facility] Chloride [Moles/Vol] 104 mmol/L 98 - 107 mmol/L [facility] CO2 [Moles/Vol] 26 mmol/L 20 - 31 mmol/L [facility] Creatinine [Mass/Vol] 0.62 mg/dL 0.5 - 0.9 mg/dL [facility] Free PSA/Total PSA [Mass fraction] 6.2 g/dL Low 6.4 - 8.3 g/dL [facility] GFR >60 60 - PI NF mL/min [facility] GFR Non- >60 60 - PINF mL/min [facility] GFR/1.73 sq M.predicted MDRD (S/P/Bld) [Vol rate/Area] [facility] Comment on above: Average GFR for 70 o r more years old: 75 mL/min/1.73sq m Chronic Kidney Disease: <60 mL/min/1.73sq m Kidney failure: <15 mL/min/1.73sq m eGFR calculated using average adult body mass. Additional eGFR calculator available at: http://www.Data Maid/multiple_crcl_2012.htm Glucose [Mass/Vol] 167 mg/dL High 70 - 99 mg/dL [facility] Interpretation and review of laboratory results Abnormal [facility] Potassium [Moles/Vol] 4.1 mmol/L 3.7 - 5.3 mmol/L [facility] Sodium [Moles/Vol] 142 mmol/L 135 - 144 mmol/L [facility] Urea nitrogen (BldV) [Mass/Vol] 16 mg/dL 8 - 23 mg/dL [facility] Urea nitrogen/Creatinine (Bld) [Mass ratio] 26 High 9 - 20 [facility] Lipid Panelon 02-23-2022 Cholesterol [Mass/Vol] 178 mg/dL NINF - 200 mg/dL [facility] Comment on above: Cholesterol Guidelines: <200 Desirable 200-240 Borderline >240 Undesirable Cholesterol in HDL [Mass/Vol] 63 mg/dL 40 - PINF mg/dL [facility] Comment on above: HDL Guidelines: <40 Undesirable 40-59 Borderline >59 Desirable Cholesterol in LDL [Mass/Vol] 95 mg/dL 0 - 130 mg/dL [facility] Comment on above: LDL Guidelines: <100 Desirable 100-129 Near to/above Desirable 130-159 Borderline >159 Undesirable Direct (measured) LDL and calculated LDL are not interchangeable tests. Cholesterol.total/Ch olesterol in HDL [Mass ratio] 2.8 {ratio} NINF - 5 [facility] Triglyceride [Mass/Vol] 100 mg/dL NINF - 150 mg/dL [facility] Comment on above: Triglyceride Guidelines: <150 Desirable 150-199 Borderline 200-499 High >499 Very high Based on AHA Guidelines for fasting triglyceride, May 2012. [facility] Lipid Profileon 02-23-2022 Cholesterol [Mass/Vol] 178 mg/dL Normal <200 [facility] Comment on above: Result Comment: Cholesterol Guidelines: <200 Desirable 200-240 Borderline >240 Undesirable Performed By: #### V D25, LIPR ####[facility] [address] [place] [address] Lab Director: Aleksey Deleon MD#### TSHX, CDP, CP, MG, ZFAST ####[facility] [address] [place] [address] Lab Director: Bryan Moody MD Cholesterol in HDL [Mass/Vol] 63 mg/dL Normal >40 [facility] Comment on above: Result Comment: HDL Guidelines: <40 Undesirable 40-59 Borderline >59 Desirable Performed By: #### V D25, LIPR ####[facility] [address] [place] [address] Lab Director: Aleksey Deleon MD#### TSHX, CDP, CP, MG, ZFAST ####[facility] [address] [place], [place] [address])[phone] Director: Bryan Moody MD Cholesterol in LDL [Mass/Vol] 95 mg/dL Normal 0-130 [facility] Comment on above: Result Comment: LDL Guidelines: <100 Desirable 100-129 Near to/above Desirable 130-159 Borderline >159 Undesirable Direct (measured) LDL and calculated LDL are not interchangeable tests. Performed By: #### V D25, LIPR ####[facility] [address] [place] [address] Lab Director: Aleksey Deleon MD#### TSHX, CDP, CP, MG, ZFAST ####[facility] Wnw[address] [place] [address] Lab Director: Bryan Moody MD Cholesterol.total/Ch olesterol in HDL [Mass ratio] 2.8 {ratio} Normal <5 [facility] Comment on above: Performed By: #### V D25, LIPR ####[facility] [address] [place] [address] Lab Director: Aleksey Deleon MD#### TSHX, CDP, CP, MG, ZFAST ####[facility] [address] [place], [place] [id number] lab Director: Bryan Moody MD Triglyceride [Mass/Vol] 100 mg/dL Normal <150 [facility] Comment on above: Result Comment: Triglyceride Guidelines: <150 Desirable 150-199 Borderline 200-499 High >499 Very high Based on AHA Guidelines for fasting triglyceride, May 2012. Performed By: #### V D25, LIPR ####[facility] [address] [place], [place] [id number] lab Director: Aleksey Deleon MD#### TSHX, CDP, CP, MG, ZFAST ####[facility] [address] [place], [place] [id number] lab Director: Bryan Moody MD Magnesiumon 02-23-2022 Magnesium [Mass/Vol] 2.3 mg/dL Normal 1.6-2.6 [facility] Comment on above: Performed By: #### V D25, LIPR ####[employer] [address] [place], [place] [id number] lab Director: Aleksey Deleon MD#### TSHX, CDP, CP, MG, ZFAST ####[facility] [address] [place], [place] [id number] lab Director: Bryan Moody MD Magnesium [Mass/Vol] 2.3 mg/dL 1.6 - 2.6 mg/dL [facility] No Panel Informationon 02-23 [facility] Patient Fasting?on 2 Patient Fasting? YES [facility] Patient fasting?on 2 Patient fasting? YES Normal [facility] Comment on above: Performed By: #### V D25, LIPR ####[facility] [address] [place], [place] [id number] Lab Director: Aleksey Deleon MD#### TSHX, CDP, CP, MG, ZFAST ####[facility] [address] [place] [address] lab Director: Bryan Moody MD TSH w/reflex to FT4on 2021 Thyroid Stim. Horm. 1.98 uIU/mL Normal 0.30-5.00 [facility] Comment on above: Performed By: #### V D25, LIPR ####[facility] [address] [place], [place] [id number] lab Director: Aleksey Deleon MD#### TSHX, CDP, CP, MG, ZFAST ####[facility] [address] [place], [place] [id number] lab Director: Bryan Moody MD TSH with Reflexon 02-23-2022 TSH Qn 1.98 m[IU]/L [facility] XR CHEST (2 VW)on 02-23-2022 XR CHEST (2 VW) EXAM: XR CHEST (2 VW ) HISTORY: Reason for exam:->sob 77-year-old female. COMPARISON: AP portable chest 09/23/2020. TECHNIQUE: Two views chest. FINDINGS: Heart size upper normal, stable. Lungs clear. IMPRESSION: Stable chest. Interpreted by: Mykel Huizar Jr., MD Signed by: Mykel Huizar Jr., MD 02/23/22 Final result Normal [facility] Stable chest. [facility] RIS CONSOLIDATED EXAM: XR CHEST (2 VW ) HISTORY: Reason for exam:->sob 77-year-old female. COMPARISON: AP portable chest 09/23/2020. TECHNIQUE: Two views chest. FINDINGS: Heart size upper normal, stable. Lungs clear. MH[facility] RIS CONSOLIDATED Mykel Huizar Jr., MD - 02/23/2022 EXAM: XR CHEST (2 VW) HISTORY: Reason for exam:->sob 77-year-old female. COMPARISON: AP portable chest 09/23/2020. TECHNIQUE: Two views chest. FINDINGS: Heart size upper normal, stable. Lungs clear. IMPRESSION: Stable chest. [employer] Phone: Radiology Study observation (narrative) [employer] Phone: XR CHEST (2 VW)Ordered By: Weston Huizar on 02-23-2022 [employer] Phone: POINT OF CARE GLUCOSEon 06- Glucose [Mass/Vol] 138 mg/dL Critically high 74-106 [facility] Comment on above: Performed By: #### P OCGLUC #### [facility] [address] [place] [address] Dr. Maxx Cadena XR LSPINE W_OBLS AND FLEX_EX Ton 12-23-2021 XR LSPINE W_OBLS AND FLEX_EXT EXAMINATION: XR LSPINE W_OBLS AND FLEX_EXT HISTORY: Lumbar spondylosis , chronic low back pain COMPARISON: XR lumbar spine 12/16/2017 FINDINGS: BONES: 2 mm anterior listhesis of L4 on 5 neutral position which progresses to 4 mm during extension and 7 mm during flexion. No significant listhesis of L3 on 4 during neutral, that this progresses to 4 mm during extension and 6 mm during flexion. Moderate degenerative facet arthropathy L3-L4 through L5-S1. No compression fracture. DISC SPACES: Mild/moderate narrowing L2-L3, L3-L4. Mild narrowing L4-L5. PARASPINOUS: Negative. No paraspinous abnormality is seen. OTHER: Negative. IMPRESSION: 1. L3-L4 and L4-L5 anterior listhesis which shows progression during extension and even greater during flexion. 2. Multilevel mild-moderate degenerative disc disease and degenerative facet arthropathy. Electronically authenticated by: CARLO LAWSON Date: 2021-12-23 16:20 Normal [facility] CHEMISTRYOrdered By: SYSTEM SYSTEM on 12-17-2021 25-hydroxyvitamin D3 [Mass/Vol] 32.0 ng/mL Normal 30.0 - 100.0 ng/mL [facility] Remisol Albumin [Mass/Vol] 3.7 g/dL Normal 3.3 - 5.0 gm/dL [facility] Remisol Albumin/Globulin [Mass ratio] 1.4 {ratio} Normal 1.1 - 2.2 [facility] Remisol ALP [Catalytic activity/Vol] 146 [iU]/d High 21 - 98 Int._Unit/L [facility] Remisol ALT No additional P-5'-P [Catalytic activity/Vol] 47 [iU]/d High 6 - 46 Int._Unit/L [facility] Remisol Anion gap [Moles/Vol] 13 mmol/L Normal 6 - 16 mEq/L [facility] AST [Catalytic activity/Vol] 26 [iU]/d Normal 5 - 43 Int._Unit/L [facility] Bilirubin [Mass/Vol] 0.5 mg/dL Normal 0.0 - 1.1 mg/dL [facility]isol Calcium [Mass/Vol] 9.5 mg/dL Normal 8.9 - 11. 1 mg/dL [facility] Chloride [Moles/Vol] 100 mmol/L Low 101 - 1 11 mmol/L [facility] CO2 [Moles/Vol] 28 mmol/L Normal 21 - 31 mmol/L [facility]isol Cobalamin (Vitamin B12) [Mass/Vol] 389 pg/mL Normal 50 - 1500 pg/mL [facility] Remisol Creatinine [Mass/Vol] 0.7 mg/dL Normal 0.5 - 1.3 mg/dL [facility] Remisol Ferritin [Mass/Vol] 10 ng/mL Low 11 - 307 ng/mL [facility] Remisol Folate [Mass/Vol] ng/mL Normal >=6.7ng/mL FT Re misol GFR/1.73 sq M.predicted among blacks MDRD (S/P/Bld) [Vol rate/Area] mL/min/1.73 m2 Normal >=59mL/min/1.73 m2 FT Chem S GFR/1.73 sq M.predicted among non-blacks MDRD (S/P/Bld) [Vol rate/Area] mL/min/1.73 m2 Normal >=59mL/min/1.73 m2 FT Chem S Globulin (S) [Mass/Vol] 2.7 g/dL Normal 1.4 - 4.0 gm/dL [facility] Remisol Glucose [Mass/Vol] 190 mg/dL Normal 55 - 199 mg/dL [facility] Remisol Potassium [Moles/Vol] 3.6 mmol/L Normal 3.5 - 5.3 mmol/L [facility] Remisol Protein [Mass/Vol] 6.4 g/dL Normal 6.0 - 7.8 gm/dL [facility] Remisol Sodium [Moles/Vol] 137 mmol/L Normal 135 - 145 mmol/L [facility] Remisol TSH Qn 2.74 m[IU]/L Normal 0.34 - 5.60 mcIU/mL [facility] Urea nitrogen [Mass/Vol] 28 mg/dL High 5 - 21 mg/dL [facility] Remisol Urea nitrogen/Creatinine [Mass ratio] 40 mg/mg High 10 - 20 [facility] CHEMISTRYOrdered By: Ila Keller on 12-17-2021 HbA1c (Bld) [Mass fraction] 7.9 % High <=5.9% [facility] ChemAutoSS HEMATOLOGYOrdered By: Uzma Liu on 12-17-2021 Erythrocyte distribution width (RBC) [Ratio] 16.8 % High 10.9 - 14.2 % [facility] HemeAutoSS Hematocrit (Bld) [Volume fraction] 41.0 % Normal 34.0 - 46.0 % [facility] HemeAutoSS Hemoglobin (Bld) [Mass/Vol] 13.1 g/dL Normal 12.0 - 16.0 gm/dL [facility] HemeAutoSS MCH (RBC) [Entitic mass] 26.0 pg Low 27.0 - 34.0 pg [facility] HemeAutoSS MCHC (RBC) [Mass/Vol] 32.0 g/dL Normal 31.4 - 36.0 gm/dL [facility] HemeAutoSS MCV (RBC) [Entitic vol] 81.2 fL Normal 80.0 - 100.0 fL [facility] HemeAutoSS Platelet mean volume (Bld) [Entitic vol] 8.1 fL Normal 6.4 - 10.8 fL [facility] HemeAutoSS Platelets (Bld) [#/Vol] 334.0 E9/L Normal 150.0 - 500.0 E9/L [facility] HemeAutoSS RBC (Bld) [#/Vol] 5.0 E12/L Normal 4.3 - 5.9 E12/L [facility] HemeAutoSS WBC corrected for nucl RBC Auto (Bld) [#/Vol] 7.7 E9/L Normal 4.0 - 11.0 E9/L [facility] HemeAutoSS POINT OF CARE GLUCOSEon 03-0 Glucose [Mass/Vol] 111 mg/dL Critically high 74-106 [facility] Comment on above: Performed By: #### P OCGLUC ####[facility] [address] [place], [place] [address]KhMeenakshi Cadena Endoscopy Reporton Endoscopy Report MR#: [id number] [facility] Pt. Name: Nahed Peterson Surgery Date: 07/17/2021 Room #: 0C Date of : 1945 PROCEDURE NOTE ATTENDING: Yonny Horn M.D. FINANCIAL LEGAL ASSISTANT: Shelton Sanchez MD. PROCEDURE: EUS/EGD with hot snare polypectomy, Endoloop and clip placement. INDICATION: This is a 76-year-old female who underwent upper endoscopy and was noted to have one submucosal lesion in duodenal sweep. The patient was referred for EGD/EUS for evaluation and potential resection of duodenal sweep lesion. ANESTHESIA: General anesthesia. CONSENT: Informed consent was obtained after explaining risks, benefits, and alternatives to the patient. The patient verbalized understanding and agreed to proceed with procedure. DESCRIPTION OF PROCEDURE: The patient was placed in left lateral decubitus position. Oxygen and cardiac monitoring equipment were attached. The patient's vital signs were continuously monitored throughout the procedure. After appropriate sedation was achieved, an Olympus gastroscope GIF-190 was advanced under direct vision from the patient's oral cavity into esophagus, stomach, 1st and 2nd part of duodenum with no difficulties. The 2nd part of duodenum was normal. The major papilla was identified and appeared to be slightly bulging, but was otherwise unremarkable. In the duodenal sweep, 1 pedunculated polypoid lesion was noted, which appeared to be flopping towards the pylorus and into the 2nd part of duodenum. The endoscope was then withdrawn out of the patient's oral cavity. An Olympus radial echoendoscope was then advanced into the stomach and the duodenal bulb with no difficulties. The major landmarks were identified. The CBD measures 6.2 mm. The pancreatic duct and head of pancreas made 4.1 mm, 1 submucosal 16.5 mm x 14.8 mm lesion was noted. The center of the lesion appeared to have a ductal structure without any blood flow. The radial endoscope was then withdrawn and the Olympus adult gastroscope was reintroduced into the duodenal sweep. One Endoloop was placed at the base of the polypoid lesion. Hot snare polypectomy was performed using Almanza net. The polyp tissue was retrieved and sent for histopathological examination. The endoscope was then reintroduced into the patient's oral cavity and 2 Endoclips were placed at this site to prevent postpolypectomy bleeding. The endoscope was then withdrawn out of the patient's oral cavity. There were no immediate complications. The patient tolerated the procedure well. ENDOSCOPIC IMPRESSION: Pedunculated submucosal polypoid lesion in the duodenal sweep. Endosonographically, the lesion appeared to be isocoric with a ductal structure in the middle without any larger blood vessels. The region measured 16.5 mm x 14.8 mm endosonographically. An Endoloop was placed at the base of the polypoid lesion. Hot snare polypectomy was performed and 2 Endoclips were placed at this site to prevent postpolypectomy bleeding. The polyp was retrieved using Almanza net and sent for histopathological examination. RECOMMENDATIONS: 1. Protonix 40 mg p.o. daily for 4-6 weeks. 2. Hold the Xarelto for 5 days if okay with prescriber. 3. Follow up with GI on as needed basis. Electronically Signed by: Yonny Horn M.D. 07/22/2021 09:30 A Yonny Horn M.D. I was present for the entire procedure from insertion of the scope until it was withdrawn. Date Dict: 07/17/2021/05:28 P/Shelton Sanchez MD Date Trans: 07/17/2021 06:37 P/mmo [id number] Normal [facility] POC GLUCOSE LABon 07-17-2021 Glucose [Mass/Vol] 131 mg/dL High 70-100 [facility] Comment on above: Performed By: #### 8 5499 #### [address] [place] [address], [place] Glucose [Mass/Vol] 78 mg/dL Normal 70-100 [facility] Comment on above: Performed By: #### 8 5499 ####[facility] [place] [address], [facility] Glucose [Mass/Vol] 90 mg/dL Normal 70-100 [facility] Comment on above: Performed By: #### 8 5499 ####[facility] [place] [address], [facility] Glucose [Mass/Vol] 66 mg/dL Low 70-100 [facility] Comment on above: Performed By: #### 8 5499 #### [facility] [address] Operative Reporton 1 Operative Report MR#: [id number] D [facility] Pt. Name: Nahed Peterson Room #: 0 Discharge 03/20/2021 Date: Birthdate: 1945 OPERATIVE REPORT DATE OF SURGERY: 03/20/2021 SURGEON: Omar Singleton M.D. Preoperative diagnosis: chronic cholecystitis, cholelithiasis Postoperative diagnosis: Same The operation was performed: Laparoscopic cholecystectomy Anesthesia: General endotracheal anesthesia Surgeon: Omar Singleton M.D. Indication: 76 years old white female with chronic cholecystitis, cholelithiasis. Laparoscopic cholecystectomy and possible intraoperative cholangiogram were offered to the patient, informed consent was obtained. Surgery: Patient was brought to the operative room placed on the operating table in supine position, general anesthesia was initiated. Patient's abdomen was prepped and draped in usual sterile fashion. Timeout was completed. A 5 mm Optiview trocar was inserted through right paraumbilical abdominal wall under direct visualization. CO2 insufflation was started. Patient was converted to a reverse Trendelenburg position and tilted towards the left. A 12 mm trocars were inserted through subxyphoid, two 5 mm trocarswere inserted through right subcostal abdominal wall under direct visuolization. Fundus of the gallbladder was retracted superiorly, infundibulum of the gallbladder was retracted laterally, blunt and electrocautery dissection around the infundibulum was performed to achieved critical view of safety. Cystic duct and the cystic artery was dissected out, which are the only 2 ductal structure into the gallbladder. Cystic duct and cystic artery were double clipped proximally and single clipped distally with a Hem-o-petty and divided with EndoShears. Gallbladder was removed from liver bed with electrocautery and placed into Endo Catch bag. Hemostasis was obtained by electrocautery. Gallbladder was removed from the subxiphoid incision inside a Endocatch bag. CO2 was desufflated, the trocars were removed. Subxiphoid incision fascia was closed by 0 Vicryl interrupted suture, which was placed by Rock-Kary needle. Skin of the incisions were closed by 4-0 Vicryl subcuticular suture and surgical glue. Surgery was completed without complication, I was present for entire operation, patient remained in stable condition, minimal blood loss, gallbladder was sent to permanent pathology evaluation, instrument count and sponge count were correct. Electronically Signed by: Omar Singleton M.D. 03/26/2021 03:53 P Omar Singleton M.D. Date Dict: 03/26/2021/03:27 P/Omar Singleton M.D. Date Trans: 03/26/2021 03:27 P/ [id number] Normal [facility] POC GLUCOSE LABon 03-20-2021 Glucose [Mass/Vol] 97 mg/dL Normal 70-100 [facility] Comment on above: Performed By: #### 8 5499 #### [facility] [address] [place] [address], [facility] CREATININE BLOODon 1 Creatinine [Mass/Vol] 0.64 mg/dL Normal 0.60-1.20 [facility] Comment on above: Performed By: #### 2 5656, [address] #### [facility] [address] [place] [address], [place] GFR/1.73 sq M.predicted among blacks MDRD (S/P/Bld) [Vol rate/Area] mL/min/{1.73_m2} Normal >60 [facility] Comment on above: Result Comment: Calc ulation may not be valid for patients over 70 years Performed By: #### 2 5656, [address] #### [facility] [address] [place] [address], [facility] GFR/1.73 sq M.predicted among non-blacks MDRD (S/P/Bld) [Vol rate/Area] mL/min/{1.73_m2} Normal >60 [facility] Comment on above: Result Comment: Calc ulation may not be valid for patients over 70 years Performed By: #### 2 5656, [address] #### [id number] [place] [address] CTA ABDOMEN AND PELVISon CTA ABDOMEN AND PELVIS [facility] Department of Radiology [address] [place] [id number] ======== Patient Name: NAHED PETERSON : 1945 Sex: F Age: Race: White Pt. Location: [facility] Patient Status: D Ordered Date: 12/12/2020 3:05:00 PM Completed Date: 01/19/2021 03:07 PM Requesting Provider: YONNY HORN Attending Provider: YONNY HORN Report Copy To: SHYLA PRUETT Signs & Symptoms: R10.13 Epigastric pain I10 CTA to rule out mesenteric ischemia History: Ruth Patient will need labs [employer] [facility] auth # [id number] 12/22/2020-01/21/2021 [id number] passed med nec *er Comments: Exam: CTA ABDOMEN AND PELVIS ======== CTA ABDOMEN AND PELVIS 01/19/2021 3:07 PM CLINICAL INDICATIONS: R10.13 Epigastric pain I10 CTA to rule out mesenteric ischemia TECHNOLOGIST COMMENTS: Epigastric pain for weeks. QUESTION FOR THE RADIOLOGIST: PROTOCOL: Axial CT angiography images were obtained with IV contrast. CONTRAST: Contrast: OMNIPAQUE 350 (LOCM), 100 milliliter, Intravenous Contrast: VOLUMEN, 1350 milliliter, Oral TECHNIQUE: Multidetector CT angiography axial slices of the abdomen and pelvis were obtained with IV contrast. Multiplanar reformats, MIP, and volume rendered 3-D images were generated on a separate workstation and reviewed to further define anatomy and possible pathology. Appropriate CT dose lowering techniques were utilized. COMPARISON: None. FINDINGS: The lung bases are unremarkable. Arterial CTA shows normal origins and main vessel runoff to the celiac axis, SMA and PARVEZ. The renal arteries are duplicated bilaterally. The aorta is minimally calcified but without aneurysm or dissection. A normal iliac runoff is noted bilaterally. The portal venous system appears unremarkable on venous phase. The liver, gallbladder, adrenals and pancreas appear unremarkable. Calcified granulomas are noted within the spleen. The kidneys concentrate contrast satisfactorily with no focal lesion. The stomach, and small bowel appear unremarkable. The colon is unremarkable except for increased stool. No pneumatosis or portal venous gas is noted. The bladder appears unremarkable and the uterus is absent. No free air or free fluid. No retroperitoneal adenopathy or hematoma. The study viewed at bone window appears unremarkable. IMPRESSION: * No evidence for intestinal ischemia. * Duplicated renal arteries bilaterally All CT scans at this facility use dose modulation, iterative reconstruction, and/or weight based dosing when appropriate to reduce radiation dose to as low as reasonably achievable Electronically signed: Sadaf Ignacio. Transcribed by: [id number], User Resident: Electronically Signed by: SADAF IGNACIO @ 01/20/2021 11:08 AM Normal [facility] LIVER BATTERYon 01-19-2021 Albumin [Mass/Vol] 3.7 g/dL Normal 3.5-5.7 [facility] Comment on above: Performed By: #### 2 5656, [id number] #### [facility] [address] [place] [address], [facility] ALKALINE PHOSPH 79 IU/L Normal 34-104 [facility] Comment on above: Performed By: #### 2 5656, [address] #### [facility] [address] [place] [address], [facility] ALT [Catalytic activity/Vol] 19 U/L Normal 7-52 [facility] Comment on above: Performed By: #### 2 5656, 226[address] #### [facility] [address] [facility] [place] [address], [facility] AST [Catalytic activity/Vol] 11 U/L Low 13-39 [facility] Comment on above: Performed By: #### 2 5656, 747[address] #### [facility] [address] [place] [address], [facility] Bilirubin [Mass/Vol] 0.2 mg/dL Low 0.3-1.0 [facility] Comment on above: Performed By: #### 2 5656, [address] #### [facility] [address] [facility] [place] [address], [facility] Bilirubin.direct [Mass/Vol] 0.1 mg/dL Normal 0.0-0.2 [facility] Comment on above: Performed By: #### 2 5656, 74555 #### [facility] [address] [facility] [place] [address], [facility] Protein [Mass/Vol] 6.3 g/dL Normal 6.0-8.3 [facility] Comment on above: Performed By: #### 2 5656, 56342 #### [facility] [address] [facility] [place] [address], [facility] NM GASTRIC EMPTYINGon 2020 NM GASTRIC EMPTYING [facility] Department of Radiology [address] [place] [phone] ======== Patient Name: NAHED PETERSON : 1945 Sex: F Age: Race: White Pt. Location: [facility] Patient Status: O Ordered Date: 12/12/2020 3:05:00 PM Completed Date: 01/15/2021 12:57 PM Requesting Provider: YONNY HORN Attending Provider: YONNY HORN Report Copy To: SHYLA PRUETT Signs & Symptoms: R10.13 Epigastric pain I10 History: Ruth *pt [facility] 8:30a [facility] also NPO 8 hrs prior npc nm gastric emptying [id number] / per lu at [facility] call ref # [id number] *er passed med nec Comments: , , , Ordering Provider - YONNY HORN MD , Exam: NM GASTRIC EMPTYING ======== NM GASTRIC EMPTYING 01/15/2021 12:57 PM CLINICAL INDICATIONS: R10.13 Epigastric pain I10 TECHNOLOGIST COMMENTS: Abdominal pain after eating, early satiety, nausea, and bloating, solid phase study w/standard meal, pt ate 4oz liquid egg whites w/tracer, 1 pcs of toast, and 5oz water. QUESTION FOR THE RADIOLOGIST: , , , Ordering Provider - YONNY HORN MD , PROTOCOL: COMPARISON: None. RADIOPHARMACEUTICAL: TC-99M SULFUR COL, 1.05 Millicuries, Oral FINDINGS: The half-time of gastric emptying was calculated at 32 minutes. No gastroesophageal reflux identified. IMPRESSION: Rapid gastric emptying, solid phase. Electronically signed: Sadaf Ignacio. Transcribed by: [email or web address], User Resident: Electronically Signed by: SADAF IGNACIO @ 01/15/2021 01:57 PM Normal [facility] Comment on above: Order Comment: , , = ========= , Ordering Provider - YONNY HORN MD , US GALLBLADDERon 01-15-2021 US GALLBLADDER [facility] Department of Radiology [address] [place] [phone] ======== Patient Name: NAHED PETERSON : 1945 Sex: F Age: Race: White Pt. Location: [facility] Patient Status: O Ordered Date: 12/12/2020 3:05:00 PM Completed Date: 01/15/2021 08:45 AM Requesting Provider: YONNY HORN Attending Provider: YONNY HORN Report Copy To: Signs & Symptoms: R10.13 Epigastric pain I10 History: [place] [facility] [place] gallbladder [id number] / per lu at [employer] call ref # [id number] *er passed med nec Comments: Exam: US GALLBLADDER ======== US GALLBLADDER 01/15/2021 8:45 AM SIGNS AND SYMPTOMS: R10.13 Epigastric pain I10 TECHNOLOGIST COMMENTS: epigastric pain after eating x 2 months with nausea QUESTION FOR THE RADIOLOGIST: TECHNIQUE: Limited abdominal ultrasound. COMPARISON: none FINDINGS: The gallbladder appeared normal in size and shape. Ringdown and twinkle artifacts are noted along the anterior gallbladder wall. The bile duct measured 8 mm. IMPRESSION: Adenomyomatosis and possible impacted calculi along the anterior gallbladder wall. Slight dilatation of the bile duct, the cause of which is not identified on this study. Electronically signed: Sadaf Ignacio. Transcribed by: [id number], User Resident: Electronically Signed by: SADAF IGNACIO @ 01/15/2021 02:24 PM Normal [facility] CBC Auto DifferentialOrdered By: Pankaj Floyd on 11-27-2020 Absolute Eos # 0.10 [employer] [facility] Work Phone: Absolute Immature Granulocyte NOT REPORTED [employer] Work Phone: Absolute Lymph # 1.70 [employer] [facility] Work Phone: Absolute [place] # 0.80 [employer] Work Phone: Basophils (Bld) [#/Vol] 0.00 10*3/uL [facility] Work Phone: Basophils/100 WBC (Bld) 1 % 0 - 2 % [facility] 911 Phone: Differential Type YES [employer] [facility] Work Phone: Eosinophils/100 WBC (Bld) 1 % 0 - 5 % [facility] Work Phone: Hematocrit (Bld) [Volume fraction] 35.1 % Low 36 - 46 % [facility] Work Phone: Hemoglobin.gastroint estinal spec 1 Ql (Stl) 11.2 g/dL Low 12.0 - 16.0 g/dL [facility] 911 Phone: Immature Granulocytes NOT REPORTED 0 % [facility] 911 Phone: Interpretation and review of laboratory results Abnormal [facility] 911 Phone: Lymphocytes/100 WBC (Bld) 25 % 15 - 40 % [employer] Work Phone: MCH (RBC) [Entitic mass] 24.8 pg Low 26 - 34 pg [facility] Work Phone: MCHC (RBC) [Mass/Vol] 31.8 g/dL 31 - 37 g/dL [facility] Work Phone: MCV (RBC) [Entitic vol] 77.9 fL Low 80 - 100 fL [facility] Work Phone: Monocytes/100 WBC (Bld) 11 % High 4 - 8 % [facility] Work Phone: NRBC Automated NOT REPORTED per 100 WBC [employer] [facility] Work Phone: Platelet distribution width (Bld) [Ratio] 18.0 % High 12.1 - 15.2 % [facility] [employer] Work Phone: Platelet Estimate NOT REPORTED [facility] Work Phone: Platelet mean volume (Bld) [Entitic vol] NOT REPORTED 6.0 - 12.0 fL [facility] Work Phone: Platelets (Bld) [#/Vol] 421 10*3/uL [facility] 911 Phone: RBC (Bld) [#/Vol] 4.51 10*6/uL 4.0 - 5.2 m/uL [facility] Work Phone: RBC (Bld) [#/Vol] NOT REPORTED [facility] Work Phone: Segmented neutrophils/100 WBC (Bld) 62 % 47 - 75 % [facility] Work Phone: Segs Absolute 4.30 [employer] Work Phone: WBC (Bld) [#/Vol] 6.9 10*3/uL [facility] Work Phone: WBC (Bld) [#/Vol] NOT REPORTED [facility] 911 Phone: Comprehensive Metabolic Pane lOrdered By: Pankaj Floyd on 11-27-2020 Albumin [Mass/Vol] 3.9 g/dL 3.5 - 5.2 g/dL [facility] Phone: Albumin/Globulin Ratio NOT REPORTED [facility] Phone: ALP (Bld) [Catalytic activity/Vol] 99 U/L 35 - 104 U/L [facility] Work Phone: ALT [Catalytic activity/Vol] 13 U/L 5 - 33 U/L [facility] Phone: Anion gap [Moles/Vol] 9 mmol/L 9 - 17 mmol/L [facility] Phone: AST [Catalytic activity/Vol] 13 U/L <32 [facility] Phone: Bilirubin [Mass/Vol] 0.18 mg/dL Low 0.30 - 1.20 mg/dL [facility] Phone: Calcium [Mass/Vol] 9.1 mg/dL 8.6 - 10. 4 mg/dL [facility] 911 Phone: Chloride [Moles/Vol] 103 mmol/L 98 - 107 mmol/L [facility] Phone: CO2 [Moles/Vol] 28 mmol/L 20 - 31 mmol/L [facility] Work Phone: Creatinine [Mass/Vol] 0.56 mg/dL 0.50 - 0.90 mg/dL [facility] Phone: Free PSA/Total PSA [Mass fraction] 6.4 g/dL 6.4 - 8.3 g/dL [facility] 911 Phone: GFR >60 >60 mL/min [employer] Phone: GFR Non- >60 >60 mL/min [facility] Work Phone: GFR/1.73 sq M.predicted MDRD (S/P/Bld) [Vol rate/Area] [facility] Phone: Comment on above: Average GFR for 70 o r more years old: 75 mL/min/1.73sq m Chronic Kidney Disease: <60 mL/min/1.73sq m Kidney failure: <15 mL/min/1.73sq m eGFR calculated using average adult body mass. Additional eGFR calculator available at: http://www.Data Maid/Intellikine_crcl_2012.htm GFR/1.73 sq M.predicted MDRD (S/P/Bld) [Vol rate/Area] NOT REPORTED [facility] Phone: Glucose [Mass/Vol] 149 mg/dL High 70 - 99 mg/dL [facility] [employer] Phone: Interpretation and review of laboratory results Abnormal [facility] Phone: Potassium [Moles/Vol] 4.3 mmol/L 3.7 - 5.3 mmol/L [facility] Phone: Sodium [Moles/Vol] 140 mmol/L 135 - 144 mmol/L [facility] Phone: Urea nitrogen (BldV) [Mass/Vol] 20 mg/dL 8 - 23 mg/dL [facility] Phone: Urea nitrogen/Creatinine (Bld) [Mass ratio] 36 High [facility] Work Phone: FerritinOrdered By: Pankaj marquez on 11-27-2020 Ferritin 12 ug/L Low 13 - 150 ug/L [employer] Work Phone: FolateOrdered By: Pankaj villasenor on 11-27-2020 Folate >20.0 >4.8 ng/mL [facility] Phone: Iron and TIBCOrdered By: Jose Floyd on 11-27-2020 Iron [Mass/Vol] 27 ug/dL Low 37 - 145 ug/dL [facility] Work Phone: Iron Saturation 7 % Low 20 - 55 % [facility] Work Phone: TIBC 365 ug/dL 250 - 450 ug/dL [facility] Work Phone: UIBC 338 ug/dL 112 - 347 ug/dL [facility] Work Phone: No Panel InformationOrdered By: Pankaj Floyd on 11-27-2020 Interpretation and review of laboratory results Abnormal [facility] [employer] Work Phone: TSH with ReflexOrdered By: Mena Floyd on 11-27-2020 TSH Qn 1.72 m[IU]/L [facility] Work Phone: Vitamin O98Unrnyab By: Pankaj Floyd on 11-27-2020 Cobalamin (Vitamin B12) [Mass/Vol] 541 pg/mL 232 - 1245 pg/mL [employer] Work Phone: CBC Auto Differentialon 09-02 Basophils (Bld) [#/Vol] 0.00 10*3/uL [employer] Work Phone: Basophils/100 WBC (Bld) 1 % 0 - 2 % [facility] 911 Phone: Differential Type YES [facility] Work Phone: Eosinophils (Bld) [#/Vol] 0.10 10*3/uL [employer] Work Phone: Eosinophils/100 WBC (Bld) 2 % 0 - 5 % [employer] Work Phone: Erythrocyte distribution width (RBC) [Ratio] 14.9 % 12.1 - 15.2 % [employer] Work Phone: Hematocrit (Bld) [Volume fraction] 33.0 % Low 36 - 46 % [facility] 911 Phone: Hemoglobin (Bld) [Mass/Vol] 10.8 g/dL Low 12 - 16 g/dL [facility] Work Phone: Lymphocytes (Bld) [#/Vol] 2.50 10*3/uL [facility] Work Phone: Lymphocytes/100 WBC (Bld) 29 % 15 - 40 % [employer] Work Phone: MCH (RBC) [Entitic mass] 29.3 pg 26 - 34 pg [facility] Work Phone: MCHC (RBC) [Mass/Vol] 32.8 g/dL 31 - 37 g/dL [employer] Work Phone: MCV (RBC) [Entitic vol] 89.2 fL 80 - 100 fL [facility] [employer] Work Phone: Monocytes (Bld) [#/Vol] 0.70 10*3/uL [facility] Work Phone: Monocytes/100 WBC (Bld) 9 % High 4 - 8 % [facility] Work Phone: Platelet mean volume (Bld) [Entitic vol] NOT REPORTED 6 - 12 fL [facility] Work Phone: Platelets (Bld) [#/Vol] NOT REPORTED [facility] 911 Phone: Platelets (Bld) [#/Vol] 309 10*3/uL [facility] Work Phone: RBC (Bld) [#/Vol] 3.71 10*6/uL Low 4 - 5.2 m/uL [facility] [employer] Work Phone: RBC morphology finding Nom (Bld) NOT REPORTED [facility] [employer] Work Phone: Segmented neutrophils/100 WBC (Bld) 59 % 47 - 75 % [facility] [employer] Work Phone: Segs Absolute 5.10 [employer] Work Phone: WBC (Bld) [#/Vol] 8.5 10*3/uL [facility] Work Phone: WBC (Bld) [#/Vol] NOT REPORTED per 100 WBC [employer] Work Phone: WBC Morphology NOT REPORTED [employer] Work Phone: CT Head WO Contraston 2020 Parveen, Mhpn Incoming Radiant Results From [employer]UVETAcribe/Pacs - 09/23/2020 3:57 AM EST EXAMINATION: CT HEAD WO CONTRAST HISTORY: Reason for exam:->dizziness with blurred vision starting at 10:30 PM on 09-22-2020 COMPARISON: None. TECHNIQUE: CT examination of the head without IV contrast. Dose reduction techniques were achieved by using automated exposure control and/or adjustment of mA and/or kV according to patient size and/or use of iterative reconstruction technique. FINDINGS: There is diffuse ventricular and sulcal prominence consistent with involutional change. Mild diffuse hypodensity in the white matter suggests chronic microvascular ischemic changes. No evident acute/subacute focus of ischemia. Hurley/white matter differentiation is otherwise preserved throughout. No hemorrhage or skull fracture. No midline shift or mass. Normal orbits. Pneumatized portions of the skull are clear. IMPRESSION: Chronic microvascular ischemic change without acute intracranial abnormality. [facility] Work Phone: Chronic microvascula r ischemic change without acute intracranial abnormality. [facility] 911 Phone: EXAMINATION: CT HEAD WO CONTRAST HISTORY: Reason for exam:->dizziness with blurred vision starting at 10:30 PM on 09-22-2020 COMPARISON: None. TECHNIQUE: CT examination of the head without IV contrast. Dose reduction techniques were achieved by using automated exposure control and/or adjustment of mA and/or kV according to patient size and/or use of iterative reconstruction technique. FINDINGS: There is diffuse ventricular and sulcal prominence consistent with involutional change. Mild diffuse hypodensity in the white matter suggests chronic microvascular ischemic changes. No evident acute/subacute focus of ischemia. Hurley/white matter differentiation is otherwise preserved throughout. No hemorrhage or skull fracture. No midline shift or mass. Normal orbits. Pneumatized portions of the skull are clear. [employer] Work Phone: Comprehensive Metabolic Pane l w/ Reflex to MGon 09-23-2020 Albumin [Mass/Vol] 3.6 g/dL 3.5 - 5.2 g/dL [facility] [employer] Work Phone: Albumin/Globulin [Mass ratio] NOT REPORTED [facility] [employer] Phone: ALP [Catalytic activity/Vol] 95 U/L 35 - 104 U/L [facility] [employer] Work Phone: ALT [Catalytic activity/Vol] 21 U/L 5 - 33 U/L [facility] [employer] Phone: Anion gap [Moles/Vol] 8 mmol/L Low 9 - 17 mmol/L [facility] [employer] Phone: AST [Catalytic activity/Vol] 14 U/L <32 [facility] [employer] Phone: Bilirubin Ql (U) 0.32 mg/dL 0.3 - 1.2 mg/dL [facility] [employer] Work Phone: Bun/Cre Ratio 81 High [facility] Work Phone: Calcium [Mass/Vol] 9.6 mg/dL 8.6 - 10. 4 mg/dL [facility] [employer] Phone: Chloride [Moles/Vol] 100 mmol/L 98 - 107 mmol/L [facility] [employer] Phone: CO2 [Moles/Vol] 25 mmol/L 20 - 31 mmol/L [facility] [employer] Phone: Creatinine [Mass/Vol] 0.62 mg/dL 0.5 - 0.9 mg/dL [facility] [employer] Phone: GFR >60 >60 mL/min [facility] [employer] Phone: GFR Non- >60 >60 mL/min [facility] [employer] Phone: GFR/1.73 sq M predicted among non-blacks MDRD (S/P/Bld) [Vol rate/Area] [facility] [employer] Phone: Comment on above: Average GFR for 70 o r more years old: 75 mL/min/1.73sq m Chronic Kidney Disease: <60 mL/min/1.73sq m Kidney failure: <15 mL/min/1.73sq m eGFR calculated using average adult body mass. Additional eGFR calculator available at: http://www.Data Maid/multiple_crcl_2012.htm GFR/1.73 sq M predicted among non-blacks MDRD (S/P/Bld) [Vol rate/Area] NOT REPORTED [facility] Phone: Glucose [Mass/Vol] 327 mg/dL High 70 - 99 mg/dL [facility] [employer] Phone: Interpretation and review of laboratory results Abnormal [facility] [employer] Phone: Potassium [Moles/Vol] 4.7 mmol/L 3.7 - 5.3 mmol/L [facility] [employer] Phone: Protein [Mass/Vol] 5.8 g/dL Low 6.4 - 8.3 g/dL [facility] [employer] Phone: Sodium [Moles/Vol] 133 mmol/L Low 135 - 144 mmol/L [facility] [employer] Phone: Urea nitrogen [Mass/Vol] 50 mg/dL High 8 - 23 mg/dL [facility] [employer] Phone: D-dimer, quantitativeon 09-02 D-Dimer, Quant 0.38 [facility] Work Phone: Comment on above: When combined with a low clinical probability, a D dimer value of <0.50 mg/L FEU is considered negative for DVT and PE (negative predictive value of 98%, sensitivity of 97%). If this test is not being used to help rule out DVT and PE, then the following reference range should be utilized: 0.00 - 0.59 mg/L FEU. The D-Dimer assay is intended for use as an aid in the diagnosis of venous thromboembolism (DVT and PE) and the results should be interpreted in conjunction with the patient's medical history, clinical presentation, and other findings. Elevated levels of D-dimer activity can be seen in any state of coagulation activation and is not recommended in patients with therapeutic dose anticoagulant therapy for >24 hours, fibrinolytic therapy within the previous 7 days, trauma or surgery within the previous 4 weeks, disseminated malignancies, aortic aneurysm, sepsis, severe infections, pneumonia, severe skin infections, liver cirrhosis, advanced age, coronary disease, diabetes, and . A very low percentage of patients with DVT may yield D-dimer results below the cutoff of 0.5 mg/L FEU. This is known to be more prevalent in patients with distal DVT. Glucose, Whole Bloodon 09-23 Glucose [Mass/Vol] 229 mg/dL High 65 - 99 mg/dL [facility] [employer] Work Phone: Interpretation and review of laboratory results Abnormal [facility] [employer] Phone: Glucose [Mass/Vol] 284 mg/dL High 65 - 99 mg/dL [facility] [employer] Work Phone: Microscopic Urinalysison Amorphous, UA NOT REPORTED None [facility] Work Phone: Bacteria, UA NOT REPORTED None [facility] Work Phone: Casts UA NOT REPORTED /LPF [facility] Work Phone: Crystals, UA NOT REPORTED None /HPF [facility] Work Phone: Epithelial Cells UA NOT REPORTED /HPF [facility] [employer] Work Phone: Mucus, UA NOT REPORTED None [facility] Work Phone: Other Observations UA NOT REPORTED NOT REQ. [facility] Work Phone: RBC (U) [#/Vol] 2 TO 5 [facility] Work Phone: Renal Epithelial, UA NOT REPORTED 0 /HPF [facility] Work Phone: Trichomonas, UA NOT REPORTED None [facility] [employer] Work Phone: WBC, UA NOT REPORTED 0 /HPF [facility] 911 Phone: Yeast, UA NOT REPORTED None [facility] 911 Phone: - [facility] 911 Phone: Otheron 09-23-2020 Immature granulocytes (Bld) [#/Vol] NOT REPORTED [facility] 911 Phone: Interpretation and review of laboratory results Abnormal [facility] 911 Phone: POCT Blood Occult Stoolon Hemoglobin.gastroint estinal Ql (Stl) Negative [facility] 911 Phone: Interpretation and review of laboratory results Normal [facility] 911 Phone: QC OK? yes [facility] 911 Phone: POCT glucoseon 09-23-2020 Glucose [Mass/Vol] 229 mg/dL [facility] 911 Phone: Interpretation and review of laboratory results Normal [facility] 911 Phone: QC OK? OK [facility] 911 Phone: Glucose [Mass/Vol] 284 mg/dL [facility] 911 Phone: Interpretation and review of laboratory results Normal [facility] 911 Phone: QC OK? yes [facility] 911 Phone: Troponinon 09-23-2020 Troponin I.cardiac [Mass/Vol] [facility] 911 Phone: Comment on above: Reference Range: <0.03 Within reference range. 0.03-0.09 Possible myocardial damage. Repeat at appropriate intervals to rule out chronic elevation. >= 0.10 Indicative of myocardial damage. Patients with high levels of Biotin oral intake (i.e >5mg/day) may have falsely decreased Troponin T levels. Samples collected within 8 hours of biotin intake may require additional information for diagnosis. Troponin T.cardiac [Mass/Vol] ug/L <0.03 ng/mL [facility] 911 Phone: Comment on above: Troponin T results c annot be compared to Troponin-I results. Troponin, High Sensitivity NOT REPORTED 0 - 14 ng/L [facility] Work Phone: Urinalysis Reflex to Culture on 09-23-2020 Bilirubin Urine Negative NEGATIVE [facility] Work Phone: Color, UA YELLOW YELLOW [facility] Work Phone: Glucose, Ur 1000 mg/dL Abnormal NEGATIVE [facility] [employer] Work Phone: Interpretation and review of laboratory results Abnormal [facility] Work Phone: Ketones Ql (U) SMALL Abnormal NEGATIVE [employer] Work Phone: Leukocyte esterase Test strip Ql (U) Negative NEGATIVE [facility] 911 Phone: Nitrite, Urine Negative NEGATIVE [employer] Work Phone: pH, UA 6.0 [facility] Work Phone: Protein (U) [Mass/Vol] Negative NEGATIVE [facility] Work Phone: Specific [place], UA 1.015 [employer] Work Phone: Turbidity UA CLEAR CLEAR [facility] 911 Phone: Urinalysis Comments [facility] 911 Phone: Urine Hgb TRACE Abnormal NEGATIVE [facility] 911 Phone: Urobilinogen, Urine Normal Normal [facility] 911 Phone: XR CHEST PORTABLEon 09-23-19 XR CHEST PORTABLE 09/23/2020 3:22 AM EST Indication: Reason for exam:->dizziness Technique: Portable AP radiograph of the chest was obtained. Comparison: None. Findings: The lungs are adequately inflated. No acute rib fractures, pneumothorax or mediastinal shift. No consolidation, edema, or effusion. Heart is normal in size and contour. [facility] 911 Phone: Impression: No acute findings. [facility] Work Phone: Parveen, Mhpn Incoming Radiant Results From [employer]/Pacs - 09/23/2020 3:58 AM EST XR CHEST PORTABLE 09/23/2020 3:22 AM EST Indication: Reason for exam:->dizziness Technique: Portable AP radiograph of the chest was obtained. Comparison: None. Findings: The lungs are adequately inflated. No acute rib fractures, pneumothorax or mediastinal shift. No consolidation, edema, or effusion. Heart is normal in size and contour. IMPRESSION: Impression: No acute findings. [facility] [employer] Work Phone: CBC Auto Differentialon - Basophils (Bld) [#/Vol] 0.00 10*3/uL [address], [place] Basophils/100 WBC (Bld) 0 % 0 - 2 % [place] [address], [place] Differential Type YES [place] Eosinophils (Bld) [#/Vol] 0.80 10*3/uL High [address], [place] Eosinophils/100 WBC (Bld) 11 % High 0 - 5 % [address] Erythrocyte distribution width (RBC) [Ratio] 14.8 % 12.1 - 15.2 % [address] Hematocrit (Bld) [Volume fraction] 39.4 % 36 - 46 % [address] Hemoglobin (Bld) [Mass/Vol] 13.3 g/dL 12 - 16 g/dL [address] Interpretation and review of laboratory results Abnormal [address] Lymphocytes (Bld) [#/Vol] 1.90 10*3/uL [address] Lymphocytes/100 WBC (Bld) 27 % 15 - 40 % [address] MCH (RBC) [Entitic mass] 29.8 pg 26 - [address] MCHC (RBC) [Mass/Vol] 33.8 g/dL 31 - 37 g/dL [address] MCV (RBC) [Entitic vol] 88.3 fL 80 - [address] Monocytes (Bld) [#/Vol] 0.90 10*3/uL [address] Monocytes/100 WBC (Bld) 12 % High 4 - 8 % [address] Platelet mean volume (Bld) [Entitic vol] NOT REPORTED 6 - 12 fL [place] Platelets (Bld) [#/Vol] 340 10*3/uL [address] Platelets (Bld) [#/Vol] NOT REPORTED [address] RBC (Bld) [#/Vol] 4.47 10*6/uL 4 - 5.2 m/uL [place], [place] RBC morphology finding Nom (Bld) NOT REPORTED [address] Segmented neutrophils/100 WBC (Bld) 50 % 47 - 75 % [place] [address] Segs Absolute 3.50 [place] WBC (Bld) [#/Vol] 7.1 10*3/uL [address] WBC (Bld) [#/Vol] NOT REPORTED per 100 WBC [place] WBC Morphology NOT REPORTED [place] CTA CHEST W CONTRASTon 09-03 1. Ascending aortic dilatation 3.8 cm unchanged. 2. Slight prominence of pulmonary arteries unchanged in retrospect raises the possibility of pulmonary artery hypertension. 3. Consider thyroid ultrasound for left thyroid nodule. [address], [place] EXAMINATION: CTA JESUS ST W CONTRAST HISTORY: Reason for exam:->Ascending aortic aneurysm 75-year-old female COMPARISON: CTA chest 03/20/2019 TECHNIQUE: CT angiography of the pulmonary arteries following the administration of Isovue-370, 100 mL intravenous contrast. Coronal and sagittal MIP (maximum intensity projection) images were performed. Dose reduction techniques were achieved by using automated exposure control and/or adjustment of mA and/or kV according to patient size and/or use of iterative reconstruction technique. FINDINGS: Mild dilatation of the ascending aorta 3.8 cm is unchanged. Small hiatal hernia unchanged. Cardiomegaly, stable. The pulmonary arteries are slightly prominent raising the possibility of mild pulmonary artery hypertension, unchanged in retrospect. Upper abdomen shows scattered calcified granulomas in the spleen. The lungs show minimal linear scar at the left base. The airways are patent. Mild nodularity of the thyroid gland, which is slightly more included with a left-sided low attenuation nodule measuring up to 1.8 cm in diameter. This meets criteria for thyroid ultrasound in a patient over 40 years of age (over 1.5 cm in diameter). [address] Parveen, Mhpn Incoming Radiant Results From [employer] - 09/03/2020 2:27 PM EST EXAMINATION: CTA CHEST W CONTRAST HISTORY: Reason for exam:->Ascending aortic aneurysm 75-year-old female COMPARISON: CTA chest 03/20/2019 TECHNIQUE: CT angiography of the pulmonary arteries following the administration of Isovue-370, 100 mL intravenous contrast. Coronal and sagittal MIP (maximum intensity projection) images were performed. Dose reduction techniques were achieved by using automated exposure control and/or adjustment of mA and/or kV according to patient size and/or use of iterative reconstruction technique. FINDINGS: Mild dilatation of the ascending aorta 3.8 cm is unchanged. Small hiatal hernia unchanged. Cardiomegaly, stable. The pulmonary arteries are slightly prominent raising the possibility of mild pulmonary artery hypertension, unchanged in retrospect. Upper abdomen shows scattered calcified granulomas in the spleen. The lungs show minimal linear scar at the left base. The airways are patent. Mild nodularity of the thyroid gland, which is slightly more included with a left-sided low attenuation nodule measuring up to 1.8 cm in diameter. This meets criteria for thyroid ultrasound in a patient over 40 years of age (over 1.5 cm in diameter). IMPRESSION: 1. Ascending aortic dilatation 3.8 cm unchanged. 2. Slight prominence of pulmonary arteries unchanged in retrospect raises the possibility of pulmonary artery hypertension. 3. Consider thyroid ultrasound for left thyroid nodule. [address], [place] Comprehensive Metabolic Pane hola 09-03-2020 Albumin [Mass/Vol] 3.7 g/dL 3.5 - 5.2 g/dL [place] Albumin/Globulin [Mass ratio] NOT REPORTED [address], [place] ALP [Catalytic activity/Vol] 101 U/L 35 - 104 U/L [address] ALT [Catalytic activity/Vol] 31 U/L 5 - 33 U/L [address] Anion gap [Moles/Vol] 10 mmol/L 9 - 17 mmol/L [address] AST [Catalytic activity/Vol] 22 U/L <[address] Bilirubin Ql (U) 0.35 mg/dL 0.3 - 1.2 mg/dL [place] Bun/Cre Ratio [facility]ED [facility] [place] [place] Calcium [Mass/Vol] 9.6 mg/dL 8.6 - 10. 4 mg/dL [address] Chloride [Moles/Vol] 103 mmol/L 98 - 107 mmol/L [address] CO2 [Moles/Vol] 26 mmol/L 20 - 31 mmol/L [address] Creatinine [Mass/Vol] 0.56 mg/dL 0.5 - 0.9 mg/dL [address] GFR >60 >60 mL/min [place], [place] GFR Non- >60 >60 mL/min [address] GFR/1.73 sq M predicted among non-blacks MDRD (S/P/Bld) [Vol rate/Area] NOT REPORTED [address] GFR/1.73 sq M predicted among non-blacks MDRD (S/P/Bld) [Vol rate/Area] [address] Comment on above: Average GFR for 70 o r more years old: 75 mL/min/1.73sq m Chronic Kidney Disease: <60 mL/min/1.73sq m Kidney failure: <15 mL/min/1.73sq m eGFR calculated using average adult body mass. Additional eGFR calculator available at: http://www.Data Maid/multiple_crcl_2012.htm Glucose [Mass/Vol] 135 mg/dL High 70 - 99 mg/dL [place], [place] Interpretation and review of laboratory results Abnormal [address], [place] Potassium [Moles/Vol] 3.9 mmol/L 3.7 - 5.3 mmol/L [address] Protein [Mass/Vol] 6.2 g/dL Low 6.4 - 8.3 g/dL [place], [place] Sodium [Moles/Vol] 139 mmol/L 135 - 144 mmol/L [address] Urea nitrogen [Mass/Vol] 26 mg/dL High 8 - 23 mg/dL [address] Hemoglobin A1Con 09-03-2020 Glucose [Mass/Vol] 229 mg/dL [address] Comment on above: The ADA and AACC rec ommend providing the estimated average glucose result to permit better patient understanding of their HBA1c result. HbA1c (Bld) [Mass fraction] 9.6 % High 4 - 6 % [address] Interpretation and review of laboratory results Abnormal [address] Lipid Panelon 09-03-2020 Cholesterol [Mass/Vol] 191 mg/dL <[address], [place] Comment on above: Cholesterol Guidelines: <200 Desirable 200-240 Borderline >240 Undesirable Cholesterol in HDL [Mass/Vol] 69 mg/dL >[address] Comment on above: HDL Guidelines: <40 Undesirable 40-59 Borderline >59 Desirable Cholesterol in LDL [Mass/Vol] 97 mg/dL 0 - 130 mg/dL [address] Comment on above: LDL Guidelines: <100 Desirable 100-129 Near to/above Desirable 130-159 Borderline >159 Undesirable Direct (measured) LDL and calculated LDL are not interchangeable tests. Cholesterol in VLDL [Mass/Vol] NOT REPORTED 1 - 30 mg/dL [address], [place] Cholesterol.total/Ch olesterol in HDL [Mass ratio] 2.8 {ratio} <[address] Triglyceride [Mass/Vol] 125 mg/dL <[address], [place] Comment on above: Triglyceride Guidelines: <150 Desirable 150-199 Borderline 200-499 High >499 Very high Based on AHA Guidelines for fasting triglyceride, May 2012. Magnesiumon 09-03-2020 Magnesium [Mass/Vol] 2.1 mg/dL 1.6 - 2.6 mg/dL [address] Otheron 09-03-2020 Immature granulocytes (Bld) [#/Vol] NOT REPORTED 0 % [address] TSH with Reflexon 09-03-2020 TSH Qn 2.92 m[IU]/L [place], [place] Vitamin D 25 Hydroxyon 09-03 Vit D, 25-Hydroxy 40.7 ng/mL 30 - 100 ng/mL [place], [place] Comment on above: Reference Range: Vitamin D status Range Deficiency <20 ng/mL Mild Deficiency 20-30 ng/mL Sufficiency 30-100 ng/mL Toxicity >100 ng/mL XR CHEST (2 VW)on 09-03-2020 Stable chest. [facility]- [place], [place] EXAM: XR CHEST (2 VW ) HISTORY: Reason for exam:->htn 75-year-old female COMPARISON: 08/16/2019 chest. CTA chest dictated separately today. TECHNIQUE: Two-view chest, PA and 2 lateral views FINDINGS: A few scattered calcified granulomas in the left hilar region unchanged. Mild stable cardiomegaly. Lungs clear. Mild degenerative change thoracic spine. [facility], [place] Parveen, Mhpn Incoming Radiant Results From [employer] - 09/03/2020 4:29 PM EST EXAM: XR CHEST (2 VW) HISTORY: Reason for exam:->htn 75-year-old female COMPARISON: 08/16/2019 chest. CTA chest dictated separately today. TECHNIQUE: Two-view chest, PA and 2 lateral views FINDINGS: A few scattered calcified granulomas in the left hilar region unchanged. Mild stable cardiomegaly. Lungs clear. Mild degenerative change thoracic spine. IMPRESSION: Stable chest. [facility], [place] Cult,Urineon 07-09-2020 Cult,Urine Specimen Description .CLEAN CATCH URINE Special Requests NOT REPORTED Culture NO SIGNIFICANT GROWTH Report Status FINAL 07/08/2020 Normal [facility] Comment on above: Performed By: #### U RC #### [address] [address] Lapidary Apprentice: Aleksey Deleon MD [facility] [address] [place] [address] [place] [address] Lapidary Apprentice: Bryan Moody MD Urinalysis w/ Microon 2019 ----- Normal [facility] Comment on above: Performed By: #### U AMIC #### [facility] [address] [place] [address] Lapidary Apprentice: Bryan Moody MD Acetoacetic Acid,Ur Negative Normal NEG [facility] Comment on above: Performed By: #### U AMIC #### [facility] [address] [place] [address] Lapidary Apprentice: Bryan Moody MD Bilirubin, SemiQt,Ur Negative Normal NEG [facility] Comment on above: Performed By: #### U AMIC #### [facility] [address] [place], [place] [id number] Lapidary Apprentice: Bryan Moody MD Color (U) YELLOW Normal YEL [facility] Comment on above: Performed By: #### U AMIC #### [facility] [address] [place], [place] [id number] Lapidary Apprentice: Bryan Moody MD Epithelial cells LM.HPF (Urine sed) [#/Area] 0 TO 2 Normal 0-25 [facility] Comment on above: Performed By: #### U AMIC #### [facility] [address] [place], [place] [id number] Lapidary Apprentice: Bryan Moody MD Glucose Ql (U) TRACE Abnormal NEG [facility] Comment on above: Performed By: #### U AMIC #### [facility] [address] [place], [place] [id number] Lapidary Apprentice: Bryan Moody MD Hemoglobin, Ur Negative Normal NEG [facility] Comment on above: Performed By: #### U AMIC #### [facility] [address] [place] [address] Dr. [place], [place] [id number] Lapidary Apprentice: Bryan Moody MD Leukocyte esterase Test strip Ql (U) Negative Normal NEG [facility] Comment on above: Performed By: #### U AMIC #### [facility] [address] [place] [address] Dr. [place], [place] [id number] Lapidary Apprentice: Bryan Moody MD Nitrite,Ur Negative Normal [facility] Comment on above: Performed By: #### U AMIC #### [facility] [address] [place] [address] [place] [address] Lapidary Apprentice: Bryan Moody MD pH (U) 6.0 [pH] Normal 5.0-9.0 [facility] Comment on above: Performed By: #### U AMIC #### [facility] [address] [place] [address] Dr. [place], [place] [id number] Lapidary Apprentice: Bryan Moody MD Protein Ql (U) Negative Normal NEG [facility] Comment on above: Performed By: #### U AMIC #### [facility] [address] [place] [address] Dr. [place], [place] [id number] Lapidary Apprentice: Bryan Moody MD RBC (U) [#/Vol] None Normal 0-2 [facility] Comment on above: Performed By: #### U AMIC #### [address] [place], [place] [id number] Lapidary Apprentice: Bryan Moody MD Specific gravity (U) [Rel density] 1.020 Normal 1.010-1.020 [facility] Comment on above: Performed By: #### U AMIC #### [address] [place], [place] [id number] Lapidary Apprentice: Bryan Moody MD Turbidity CLEAR Normal CLEAR [facility] Comment on above: Performed By: #### U AMIC #### [address] [place], [place] [id number] Lapidary Apprentice: Bryan Moody MD Urobilinogen,Ur Normal Normal NORM [facility] Comment on above: Performed By: #### U AMIC #### [facility] [address] [place] [address] Dr. [place], [place] [id number] Lapidary Apprentice: Bryan Moody MD WBC (U) [#/Vol] 0 TO 2 Normal 0-5 [facility] Comment on above: Performed By: #### U AMIC #### [facility] [address] [place] [address] Dr. [place], [place] [id number] Lapidary Apprentice: Bryan Moody MD Amorphous sediment LM Ql (Urine sed) NOT REPORTED Normal NONE [facility] Comment on above: Performed By: #### U AMIC #### [facility] [address] [place], [place] [phone] Lapidary Apprentice: Bryan Moody MD Bacteria LM.HPF (Urine sed) [#/Area] NOT REPORTED Normal NONE [facility] Comment on above: Performed By: #### U AMIC #### [facility] [address] [place] [address] Lapidary Apprentice: Bryan Moody MD Casts LM.LPF (Urine sed) [#/Area] NOT REPORTED Normal [facility] Comment on above: Performed By: #### U AMIC #### [facility] [address] [place] [address] Lapidary Apprentice: Bryan Moody MD Comment NOT REPORTED Normal [facility] Comment on above: Performed By: #### U AMIC #### [facility] [address] [place] [address] Dr. [place] [id number] Lapidary Apprentice: Bryan Moody MD Crystals LM Nom (Urine sed) NOT REPORTED Normal NONE [facility] Comment on above: Performed By: #### U AMIC #### [address] [place] [id number] Lapidary Apprentice: Bryan Moody MD Epithelial, Renal NOT REPORTED Normal 0 [facility] Comment on above: Performed By: #### U AMIC #### [facility] [address] [place] [address] Dr. [place], [place] [id number] Lapidary Apprentice: Bryan Moody MD Mucus Strands NOT REPORTED Normal NONE [facility] Comment on above: Performed By: #### U AMIC #### [facility] [address] [place], [place] [id number] Lapidary Apprentice: Bryan Moody MD Other Observations NOT REPORTED Normal NREQ [facility] Comment on above: Performed By: #### U AMIC #### [facility] [address] [place], [place] [id number] Lapidary Apprentice: Bryan Moody MD Trichomonas NOT REPORTED Normal NONE [facility] Comment on above: Performed By: #### U AMIC #### [facility] [address] [place] [address] Lapidary Apprentice: Bryan Moody MD Yeast LM Ql (Urine sed) NOT REPORTED Normal NONE [facility] Comment on above: Performed By: #### U AMIC #### [facility] [address] [place] [address] Lapidary Apprentice: Bryan Moody MD Urinalysis with Microscopico n 07-07-2020 Amorphous, UA NOT REPORTED None [facility]- [place], [place] Bacteria, UA NOT REPORTED None [facility], [place] Bilirubin Urine Negative NEGATIVE [facility] [place], [place] Casts UA NOT REPORTED /LPF [place], [place] Color, UA YELLOW YELLOW [address], [place] Crystals, UA NOT REPORTED None /HPF [facility], [place] Epithelial Cells UA [address], [place] Glucose, Ur TRACE Abnormal NEGATIVE [address] Interpretation and review of laboratory results Abnormal [address], [place] Ketones Ql (U) Negative NEGATIVE [facility], [place] Leukocyte esterase Test strip Ql (U) Negative NEGATIVE [address] Mucus, UA NOT REPORTED None [place], [place] Nitrite, Urine Negative NEGATIVE [place], [place] Other Observations UA NOT REPORTED NOT REQ. [facility], [place] pH, UA [address] Protein (U) [Mass/Vol] Negative NEGATIVE [address] RBC (U) [#/Vol] None [facility] [place], [place] Renal Epithelial, UA NOT REPORTED 0 /HPF [facility], [place] Specific [place], UA 1.020 [place], [place] Trichomonas, UA NOT REPORTED None [facility] [place] Turbidity UA CLEAR CLEAR [place] Urinalysis Comments NOT REPORTED [place] Urine Hgb Negative NEGATIVE [facility], [place] Urobilinogen, Urine Normal Normal [address], [place] WBC, UA [address], [place] Yeast, UA NOT REPORTED None [place], [place] - [address], [place] BUN & Creatinineon 0 Creatinine [Mass/Vol] 0.63 mg/dL 0.5 - 0.9 mg/dL [address] GFR >60 >60 mL/min [place] GFR Non- >60 >60 mL/min [address] GFR/1.73 sq M predicted among non-blacks MDRD (S/P/Bld) [Vol rate/Area] [address] Comment on above: Average GFR for 70 o r more years old: 75 mL/min/1.73sq m Chronic Kidney Disease: <60 mL/min/1.73sq m Kidney failure: <15 mL/min/1.73sq m eGFR calculated using average adult body mass. Additional eGFR calculator available at: http://www.Data Maid/multiple_crcl_2012.htm GFR/1.73 sq M predicted among non-blacks MDRD (S/P/Bld) [Vol rate/Area] NOT REPORTED [address] Urea nitrogen [Mass/Vol] 23 mg/dL 8 - 23 mg/dL [address], [place] Otheron 03-25-[address] EXAMINATION: CT UROGRAM HISTORY: R31.29 75-year-old female with microscopic hematuria. COMPARISON: None. TECHNIQUE: CT urogram. Pre and postcontrast images. 3-D images reconstructed on the CT workstation. Isovue-370, 125 mL after contrast. Precontrast images were also obtained. Dose reduction techniques were achieved by using automated exposure control and/or adjustment of mA and/or kV according to patient size and/or use of iterative reconstruction technique. FINDINGS: There are no urinary tract calculi. Post contrast there is normal enhancement of the kidneys and normal excretion into normal collecting systems. The visualized portions of the ureters are normal. The ureteral jets identified at the bladder. There is no filling defect in the bladder. There are multiple phleboliths in the pelvis. Previous hysterectomy. The bowel is normal. Moderate plaque in the aorta without aneurysm. Scattered calcified granulomas in the spleen. Normal adrenal glands, pancreas, gallbladder, and liver. Lung bases clear. The 3-D reconstructions show no additional abnormality. [facility] [place] Par[place], Mhpn Incoming Radiant Results From [employer] - 03/27/2020 7:51 AM EDT EXAMINATION: CT UROGRAM HISTORY: R31.29 75-year-old female with microscopic hematuria. COMPARISON: None. TECHNIQUE: CT urogram. Pre and postcontrast images. 3-D images reconstructed on the CT workstation. Isovue-370, 125 mL after contrast. Precontrast images were also obtained. Dose reduction techniques were achieved by using automated exposure control and/or adjustment of mA and/or kV according to patient size and/or use of iterative reconstruction technique. FINDINGS: There are no urinary tract calculi. Post contrast there is normal enhancement of the kidneys and normal excretion into normal collecting systems. The visualized portions of the ureters are normal. The ureteral jets identified at the bladder. There is no filling defect in the bladder. There are multiple phleboliths in the pelvis. Previous hysterectomy. The bowel is normal. Moderate plaque in the aorta without aneurysm. Scattered calcified granulomas in the spleen. Normal adrenal glands, pancreas, gallbladder, and liver. Lung bases clear. The 3-D reconstructions show no additional abnormality. IMPRESSION: Normal CT urogram. [facility] [place] Cult,Urineon 02-29-2020 Cult,Urine Specimen Description .CLEAN CATCH URINE Special Requests NOT REPORTED Culture NO GROWTH Report Status FINAL 02/29/2020 [facility] Comment on above: Performed By: #### U RC #### [facility] [employer] [facility] [place] [address] Lapidary Apprentice: Aleksey Deleon MD [facility] [address] [place] [address] Lapidary Apprentice: Geronimo Alicea MD Trichomonas/Wet Prepon 02-27 Trichomonas/Wet Prep Specimen Descriptio n .VAGINA Special Requests NOT REPORTED Direct Exam NO CLUE CELLS SEEN NO TRICHOMONAS SEEN NO YEAST OBSERVED Report Status FINAL 02/28/2020 [facility] Comment on above: Performed By: #### W P #### [facility] [address] [place], [place] [id number] Lapidary Apprentice: Geronimo Alicea MD Urinalysis w/ Microon 2019 ----- Normal [facility] Comment on above: Performed By: #### U AMIC #### [facility] [address] [place], [place] [phone] Lapidary Apprentice: Geronimo Alicea MD Acetoacetic Acid,Ur Negative Normal NEG [facility] Comment on above: Performed By: #### U AMIC #### [facility] [address] [place] [id number] Lapidary Apprentice: Geronimo Alicea MD Bacteria LM.HPF (Urine sed) [#/Area] TRACE Abnormal NONE [facility] Comment on above: Performed By: #### U AMIC #### [facility] [address] [place] [phone] Lapidary Apprentice: Geronimo Alicea MD Bilirubin, SemiQt,Ur Negative Normal NEG [facility] Comment on above: Performed By: #### U AMIC #### [address] [place] [id number] Lapidary Apprentice: Geronimo Alicea MD Color (U) YELLOW Normal L [facility] Comment on above: Performed By: #### U AMIC #### [facility] [address] [place] [facility] Lapidary Apprentice: Geronimo Alicea MD Epithelial cells LM.HPF (Urine sed) [#/Area] 5 TO 10 Normal 0-25 [facility] Comment on above: Performed By: #### U AMIC #### [facility] [address] [place] [address] Lapidary Apprentice: Geronimo Alicea MD Glucose Ql (U) Negative Normal NEG [facility] Comment on above: Performed By: #### U AMIC #### [facility] [address] [place] [address] Lapidary Apprentice: Geronimo Alicea MD Hemoglobin, Ur Negative Normal NEG [facility] Comment on above: Performed By: #### U AMIC #### [facility] [address] [place] [address] Lapidary Apprentice: Geronimo Alicea MD Leukocyte esterase Test strip Ql (U) Negative Normal NEG [facility] Comment on above: Performed By: #### U AMIC #### [facility] [address] [place] [address] Lapidary Apprentice: Geronimo Alicea MD Nitrite,Ur Negative Normal NEG [facility] Comment on above: Performed By: #### U AMIC #### [facility] [address] [place] [address] Lapidary Apprentice: Geronimo Alicea MD pH (U) 7.5 [pH] Normal 5.0-9.0 [facility] Comment on above: Performed By: #### U AMIC #### [facility] [address] [place], [place] 8456983 Lapidary Apprentice: Geronimo Alicea MD Protein Ql (U) Negative Normal NEG [facility] Comment on above: Performed By: #### U AMIC #### [facility] [address] [place] [address] Lapidary Apprentice: Geronimo Alicea MD RBC (U) [#/Vol] 5 TO 10 Normal 0-2 [facility] Comment on above: Performed By: #### U AMIC #### [facility] [address] [place], [place] [id number] Lapidary Apprentice: Geronimo Alicea MD Specific gravity (U) [Rel density] 1.020 Normal 1.010-1.020 [facility] Comment on above: Performed By: #### U AMIC #### [facility] [address] [place] [address] Lapidary Apprentice: Geronimo Alicea MD Turbidity CLEAR Normal CLEAR [facility] Comment on above: Performed By: #### U AMIC #### [facility] [address] [place], [place] [id number] Lapidary Apprentice: Geronimo Alicea MD Urobilinogen,Ur Normal Normal NORM [facility] Comment on above: Performed By: #### U AMIC #### [facility] [address] [place], [place] [id number] Lapidary Apprentice: Geronimo Alicea MD WBC (U) [#/Vol] 2 TO 5 Normal 0-5 [facility] Comment on above: Performed By: #### U AMIC #### [facility] [address] [place], [place] [id number] Lapidary Apprentice: Geronimo Alicea MD Amorphous sediment LM Ql (Urine sed) NOT REPORTED Normal [facility] Comment on above: Performed By: #### U AMIC #### [facility] [address] [place], [place] [id number] Lapidary Apprentice: Geronimo Alicea MD Casts LM.LPF (Urine sed) [#/Area] NOT REPORTED Normal [facility] Comment on above: Performed By: #### U AMIC #### [facility] [address] [place] [address] Dr. [place], [place] [id number] Lapidary Apprentice: Geronimo Alicea MD Comment NOT REPORTED Normal [facility] Comment on above: Performed By: #### U AMIC #### [facility] [address] [place] [address] Lapidary Apprentice: Geronimo Alicea MD Crystals LM Nom (Urine sed) NOT REPORTED Normal [facility] Comment on above: Performed By: #### U AMIC #### [facility] [address] [place], [place] 6222683 Lapidary Apprentice: Geronimo Alicea MD Epithelial, Renal NOT REPORTED Normal 0 [facility] Comment on above: Performed By: #### U AMIC #### [facility] [address] [place], [place] [id number] Lapidary Apprentice: Geronimo Alicea MD Mucus Strands NOT REPORTED Normal [facility] Comment on above: Performed By: #### U AMIC #### [facility] [address] [place], [place] 5598083 Lapidary Apprentice: Geronimo Alicea MD Other Observations NOT REPORTED Normal NREQ [facility] Comment on above: Performed By: #### U AMIC #### [facility] [address] [place] [id number] Lapidary Apprentice: Geronimo Alicea MD Trichomonas NOT REPORTED Normal [facility] Comment on above: Performed By: #### U AMIC #### [facility] [address] [place] [id number] Lapidary Apprentice: Geronimo Alicea MD Yeast LM Ql (Urine sed) NOT REPORTED Normal [facility] Comment on above: Performed By: #### U AMIC #### [facility] [address] [place] [address] Lapidary Apprentice: Geronimo Alicea MD Urinalysis with Microscopico n 02-28-2020 Amorphous, UA NOT REPORTED None [facility] [place], [place] Bacteria, UA TRACE Abnormal None [facility], [place] Bilirubin Urine Negative NEGATIVE [facility] [place] Casts UA NOT REPORTED /LPF [facility] [place], [place] Color, UA YELLOW YELLOW [facility], [place] Crystals, UA NOT REPORTED None /HPF [facility] [place] Epithelial Cells UA [address] [facility] [place], [place] Glucose, Ur Negative NEGATIVE [facility] [place] Interpretation and review of laboratory results Abnormal [facility] [place], [place] Ketones Ql (U) Negative NEGATIVE [facility] [place] Leukocyte esterase Test strip Ql (U) Negative NEGATIVE [facility] [place] Mucus, UA NOT REPORTED None [facility] [place] Nitrite, Urine Negative NEGATIVE [facility] [place] Other Observations UA NOT REPORTED NOT REQ. [address], [place] pH, UA [address], [place] Protein (U) [Mass/Vol] Negative NEGATIVE [address] RBC (U) [#/Vol] 5 TO 10 [place], [place] Renal Epithelial, UA NOT REPORTED 0 /HPF Me [place], [place] Specific [place], UA 1.020 [place], [place] Trichomonas, UA NOT REPORTED None [facility] [place], [place] Turbidity UA CLEAR CLEAR [place], [place] Urinalysis Comments NOT REPORTED [place], [place] Urine Hgb Negative NEGATIVE [address], [place] Urobilinogen, Urine Normal Normal [address], [place] WBC, UA [address] Yeast, UA NOT REPORTED None [place], [place] - [place] [address], [place] Wet prep, genitalon 02-28-20 Direct Exam NO CLUE CELLS SEEN [address], [place] Direct Exam NO YEAST OBSERVED [address], [place] Direct Exam NO TRICHOMONAS SEEN [place], [place] Special Requests NOT REPORTED [address], [place] Specimen Description .VAGINA [place], [place] C-Reactive ProteinOrdered By : Pankaj Floyd on 08-16-2019 CRP [Mass/Vol] 3.4 mg/L 0 - 5 mg/L [facility] Work Phone: Microscopic UrinalysisOrdere d By: Pankaj Floyd on 08-16-2019 - [facility] Work Phone: Amorphous, UA NOT REPORTED None [facility] Work Phone: Bacteria, UA RARE Abnormal None [facility] Work Phone: Casts UA NOT REPORTED /LPF [facility] Work Phone: Crystals UA NOT REPORTED None /HPF [facility] Work Phone: Epithelial Cells UA 0 TO 2 /HPF [facility] Work Phone: Interpretation and review of laboratory results Abnormal [facility] Work Phone: Mucus, UA NOT REPORTED None [facility] Work Phone: Other Observations UA NOT REPORTED NOT REQ. [facility] Work Phone: RBC, UA 0 TO 2 [facility] Work Phone: Renal Epithelial, Urine NOT REPORTED 0 /HPF [facility] Work Phone: Trichomonas, UA NOT REPORTED None [facility] Work Phone: WBC, UA NOT REPORTED 0 /HPF [facility] Work Phone: Yeast, UA NOT REPORTED None [facility] Work Phone: Sedimentation RateOrdered By : Pankaj Floyd on 08-16-2019 Sed Rate 18 mm 0 - 30 mm [facility] Work Phone: Urinalysis Reflex to Culture Ordered By: Pankaj Floyd on 08-16-2019 Bilirubin Urine Negative NEGATIVE [facility] Work Phone: Color, UA YELLOW YELLOW [facility] Work Phone: Glucose, Ur 50 mg/dL Abnormal NEGATIVE [facility] Work Phone: Interpretation and review of laboratory results Abnormal [facility] Work Phone: Ketones Ql (U) Negative NEGATIVE [facility] Work Phone: Leukocyte esterase Test strip Ql (U) Negative NEGATIVE [facility] Work Phone: Nitrite, Urine Negative NEGATIVE [facility] Work Phone: pH, UA 6.0 [facility] Work Phone: Protein, UA Negative NEGATIVE [facility] Work Phone: Specific [place], UA 1.025 [facility] [employer] Work Phone: Turbidity UA CLEAR CLEAR [facility] Work Phone: Urinalysis Comments [facility] Work Phone: Urine Hgb TRACE Abnormal NEGATIVE [facility] 911 Phone: Urobilinogen, Urine Normal Normal [facility] 911 Phone: XR CHEST STANDARD (2 VW)Orde red By: Pankaj Floyd on 08-16-2019 Mild stable cardiomegaly. [facility] 911 Phone: EXAM: XR CHEST (2 VW ) HISTORY: H20.9 74-year-old female uveitis, atrial fibrillation, hypertension. COMPARISON: CT chest 03/20/2019, chest x-ray 06/15/2018. TECHNIQUE: 2 views chest. FINDINGS: Mild stable cardiomegaly, with clear lungs. [facility] 911 Phone: Parveen, Mhpn Incoming Radiant Results From [employer] - 08/16/2019 3:55 PM EST EXAM: XR CHEST (2 VW) HISTORY: H20.9 74-year-old female uveitis, atrial fibrillation, hypertension. COMPARISON: CT chest 03/20/2019, chest x-ray 06/15/2018. TECHNIQUE: 2 views chest. FINDINGS: Mild stable cardiomegaly, with clear lungs. IMPRESSION: Mild stable cardiomegaly. [facility] 911 Phone: CBC Auto DifferentialOrdered By: Pankaj Floyd on 08-10-2019 Absolute [employer]os # 0.10 [employer] [facility] Work Phone: Absolute Immature Granulocyte NOT REPORTED [employer] Work Phone: Absolute Lymph # 1.80 [employer] Work Phone: Absolute [place] # 0.60 [employer] Work Phone: Basophils (Bld) [#/Vol] 0.00 10*3/uL [employer] Work Phone: Basophils/100 WBC (Bld) 1 % 0 - 2 % [employer] Work Phone: Differential Type YES [employer] [facility] Work Phone: Eosinophils/100 WBC (Bld) 2 % 0 - 5 % [facility] 911 Phone: Erythrocyte distribution width (RBC) [Ratio] 14.9 % 12.1 - 15.2 % [employer] Work Phone: Hematocrit (Bld) [Volume fraction] 45.3 % 36 - 46 % [facility] 911 Phone: Hemoglobin (Bld) [Mass/Vol] 15.1 g/dL 12 - 16 g/dL [employer] Work Phone: Immature Granulocytes NOT REPORTED 0 % [employer] Work Phone: Interpretation and review of laboratory results Abnormal [facility] 911 Phone: Lymphocytes/100 WBC (Bld) 32 % 15 - 40 % [facility] 911 Phone: MCH (RBC) [Entitic mass] 29.2 pg 26 - 34 pg [employer] Work Phone: MCHC (RBC) [Mass/Vol] 33.4 g/dL 31 - 37 g/dL [facility] 911 Phone: MCV (RBC) [Entitic vol] 87.4 fL 80 - 100 fL [employer] Work Phone: Monocytes/100 WBC (Bld) 11 % High 4 - 8 % [facility] 911 Phone: MPV NOT REPORTED 6 - 12 fL [employer] Work Phone: NRBC Automated NOT REPORTED per 100 WBC [facility] Work Phone: Platelet Estimate NOT REPORTED [facility] 911 Phone: Platelets (Bld) [#/Vol] 293 10*3/uL [employer] Work Phone: RBC (Bld) [#/Vol] 5.18 10*6/uL 4 - 5.2 m/uL [facility] [employer] Work Phone: RBC morphology finding Nom (Bld) NOT REPORTED [facility] Work Phone: Segmented neutrophils/100 WBC (Bld) 54 % 47 - 75 % [facility] Work Phone: Segs Absolute 3.20 [facility] [employer] Work Phone: WBC (Bld) [#/Vol] 5.8 10*3/uL [facility] [employer] Work Phone: WBC Morphology NOT REPORTED [facility] Work Phone: Comprehensive Metabolic Pane lOrdered By: Pankaj Floyd on 08-10-2019 Albumin [Mass/Vol] 4.4 g/dL 3.5 - 5.2 g/dL [facility] [employer] Work Phone: Albumin/Globulin Ratio NOT REPORTED [facility] [employer] Phone: ALP [Catalytic activity/Vol] 107 U/L High 35 - 104 U/L [facility] [employer] Work Phone: ALT [Catalytic activity/Vol] 24 U/L 5 - 33 U/L [facility] [employer] Phone: Anion gap [Moles/Vol] 13 mmol/L 9 - 17 mmol/L [facility] [employer] Phone: AST [Catalytic activity/Vol] 17 U/L <32 [facility] [employer] Phone: Bilirubin [Mass/Vol] 0.36 mg/dL 0.3 - 1.2 mg/dL [facility] [employer] Phone: Bun/Cre Ratio 37 High [facility] [employer] Work Phone: Calcium [Mass/Vol] 10.5 mg/dL High 8.6 - 10. 4 mg/dL [facility] [employer] Phone: Chloride [Moles/Vol] 103 mmol/L 98 - 107 mmol/L [facility] [employer] Phone: CO2 [Moles/Vol] 26 mmol/L 20 - 31 mmol/L [facility] [employer] Work Phone: Creatinine [Mass/Vol] 0.62 mg/dL 0.5 - 0.9 mg/dL [facility] [employer] Phone: GFR >60 >60 mL/min [facility] [employer] Phone: GFR Comment [facility] [employer] Phone: Comment on above: Average GFR for 70 o r more years old: 75 mL/min/1.73sq m Chronic Kidney Disease: <60 mL/min/1.73sq m Kidney failure: <15 mL/min/1.73sq m eGFR calculated using average adult body mass. Additional eGFR calculator available at: http://www.Data Maid/multiple_crcl_2012.htm GFR Non- >60 >60 mL/min [facility] [employer] Phone: GFR Staging NOT REPORTED [facility] Work Phone: Glucose [Mass/Vol] 136 mg/dL High 70 - 99 mg/dL [facility] [employer] Work Phone: Potassium [Moles/Vol] 4.2 mmol/L 3.7 - 5.3 mmol/L [facility] [employer] Phone: Protein [Mass/Vol] 7.6 g/dL 6.4 - 8.3 g/dL [facility] [employer] Phone: Sodium [Moles/Vol] 142 mmol/L 135 - 144 mmol/L [facility] Phone: Urea nitrogen [Mass/Vol] 23 mg/dL 8 - 23 mg/dL [facility] Phone: Lipid PanelOrdered By: Pankaj Floyd on 08-10-2019 Cholesterol [Mass/Vol] 247 mg/dL High <200 [facility] Phone: Comment on above: Cholesterol Guidelines: <200 Desirable 200-240 Borderline >240 Undesirable Cholesterol in HDL [Mass/Vol] 78 mg/dL >40 [facility] Phone: Comment on above: HDL Guidelines: <40 Undesirable 40-59 Borderline >59 Desirable Cholesterol in LDL [Mass/Vol] 133 mg/dL High 0 - 130 mg/dL [facility] 911 Phone: Comment on above: LDL Guidelines: <100 Desirable 100-129 Near to/above Desirable 130-159 Borderline >159 Undesirable Direct (measured) LDL and calculated LDL are not interchangeable tests. Cholesterol.total/Ch olesterol in HDL [Mass ratio] 3.2 {ratio} <5 [facility] Phone: Triglyceride [Mass/Vol] 182 mg/dL High <150 [facility] Phone: Comment on above: Triglyceride Guidelines: <150 Desirable 150-199 Borderline 200-499 High >499 Very high Based on AHA Guidelines for fasting triglyceride, May 2012. VLDL NOT REPORTED High 1 - 30 mg/dL [employer] Work Phone: MagnesiumOrdered By: Pankaj oneal on 08-10-2019 Magnesium [Mass/Vol] 2.4 mg/dL 1.6 - 2.6 mg/dL [facility] Phone: No Panel InformationOrdered By: Pankaj Floyd on 08-10-2019 Interpretation and review of laboratory results Abnormal [facility] Phone: Patient Fasting?Ordered By: Pankaj Floyd on 08-10-2019 Patient Fasting? YES [employer] [place] Work Phone: TSH with ReflexOrdered By: Mena Floyd on 08-10-2019 TSH Qn 2.21 m[IU]/L [facility] [employer] Phone: Vitamin D 25 HydroxyOrdered By: Pankaj Floyd on 08-10-2019 Vit D, 25-Hydroxy 40.8 ng/mL 30 - 100 ng/mL [facility] [employer] Work Phone: Comment on above: Reference Range: Vitamin D status Range Deficiency <20 ng/mL Mild Deficiency 20-30 ng/mL Sufficiency 30-100 ng/mL Toxicity >100 ng/mL ECHO Complete 2D W Doppler W Coloron 04-19-2019 [facility] Transthoracic Echocardiography Report (TTE) Patient Name PINE Date of Study 04/19/2019 NAHED Genao Date of 1945 Gender Female Age 74 year(s) Race Room Number Height: 64 inch, 162.56 cm Corporate ID [id number] Weight: 230 pounds, 104.3 kg # Patient Acct [id number] BSA: 2.08 m^2 BMI: 39.48 kg/m^2 # MR # [id number] [employer] Photographer RT Jayden Interpreting Physician Inez Crenshaw Fellow Referring Nurse Practitioner Interpreting Referring Physician EDY GRIER Fellow * Shyla Pruett Type of Study TTE procedure:2D Echocardiogram, M-Mode, Doppler, Color Doppler. Procedure Date Date: 04/19/2019 Start: 01:10 PM Study Location: [facility] Indications:Dyspnea/SO B and Left ventricular hypertrophy. Patient Status: Outpatient Height: 64 inches Weight: 230.01 pounds BSA: 2.08 m^2 BMI: 39.48 kg/m^2 CONCLUSIONS Summary Left ventricle is normal in size. Moderate to severe left ventricular hypertrophy. Global left ventricular systolic function is normal with an estimated ejection fraction of 55 % . Evidence of diastolic dysfunction. Left atrium is moderately dilated. Right atrium is normal in size. Normal right ventricular size and function. Aortic valve leaflets are mildly thickened. No aortic stenosis. Thickened mitral valve leaflets. Mild mitral regurgitation. In summary, no significant change from previous echo Signature Electronically signed by RT Jayden(Maged)(M)(VEENA)([facility])(Jeremiah hayden) on 04/19/2019 01:43 PM FINDINGS Left Atrium Left atrium is moderately dilated. Left Ventricle Left ventricle is normal in size. Moderate to severe left ventricular hypertrophy. Global left ventricular systolic function is normal with an estimated ejection fraction of 55 % . Evidence of diastolic dysfunction. Right Atrium Right atrium is normal in size. Right Ventricle Normal right ventricular size and function. Mitral Valve Thickened mitral valve leaflets. Mild mitral regurgitation. Aortic Valve Aortic valve leaflets are mildly thickened. No aortic stenosis. Tricuspid Valve Normal tricuspid valve leaflets. Mild to moderate tricuspid regurgitation. Estimated right ventricular systolic pressure is 35 mmHg. Pulmonic Valve Technically difficult visualization of the pulmonic valve, no abnormality seen. Pericardial Effusion No significant pericardial effusion is seen. Pleural Effusion No pleural effusion seen. Miscellaneous Normal aortic root dimension. M-mode / 2D Measurements & Calculations: LVIDd:4.49 cm(3.7 - 5.6 cm) Diastolic Volume:66.44 ml LVIDs:2.34 cm(2.2 - 4.0 cm) Systolic Volume:15.12 ml IVSd:1.13 cm(0.6 - 1.1 cm) Aortic Root:3.15 cm(2.0 - 3.7 cm) LVPWd:1.29 cm(0.6 - 1.1 cm) LA Dimension: 4.84 cm(1.9 - 4.0 cm) Fractional Shortenin.88 % LA volume/Index: 52.65 ml /25m^2 Calculated LVEF (%): 77.24 % AV Cusp Separation: 1.6 cm LVOT:2.27 cm RVDd:2.46 cm Mitral: Aortic Valve Area (P1/2-Time): 3.02 cm^2 Peak Velocity: 1.09 m/s Peak E-Wave: 1.19 m/s Peak Gradient: 4.77 mmHg Peak A-Wave: 0.98 m/s E/A Ratio: 1.22 Peak Gradient: 5.7 mmHg Deceleration Time: 251.34 msec P1/2t: 72.89 msec Tricuspid: Pulmonic: Estimated RVSP: 35.46 mmHg Peak Velocity: 1.00 m/s Peak TR Velocity: 2.74 m/s Peak Gradient: 4.04 mmHg Peak TR Gradient: 30.69376 mmHg Estimated RA Pressure: 5 mmHg Estimated PASP: 35.[address] [facility] [place], [place] Parveen, Mhpn Incoming Cardio Results From [facility]/ - 04/19/2019 6:57 PM EDT [facility] Transthoracic Echocardiography Report (TTE) Patient Name PINE Date of Study 04/19/2019 NAHED Genao Date of 1945 Gender Female Age 74 year(s) Race Room Number Height: 64 inch, 162.56 cm Corporate ID [id number] Weight: 230 pounds, 104.3 kg # Patient Acct [id number] BSA: 2.08 m^2 BMI: 39.48 kg/m^2 # MR # [id number] [employer] Photographer Elvia Lazaro, RT Interpreting Physician Inez Crenshaw Fellow Referring Nurse Practitioner Interpreting Referring Physician EDY GRIER Fellow * Shyla Pruett Type of Study TTE procedure:2D Echocardiogram, M-Mode, Doppler, Color Doppler. Procedure Date Date: 04/19/2019 Start: 01:10 PM Study Location: [facility] Indications:Dyspnea/SO B and Left ventricular hypertrophy. Patient Status: Outpatient Height: 64 inches Weight: 230.01 pounds BSA: 2.08 m^2 BMI: 39.48 kg/m^2 CONCLUSIONS Summary Left ventricle is normal in size. Moderate to severe left ventricular hypertrophy. Global left ventricular systolic function is normal with an estimated ejection fraction of 55 % . Evidence of diastolic dysfunction. Left atrium is moderately dilated. Right atrium is normal in size. Normal right ventricular size and function. Aortic valve leaflets are mildly thickened. No aortic stenosis. Thickened mitral valve leaflets. Mild mitral regurgitation. In summary, no significant change from previous echo Signature --------- - Electronically signed by KAYLEIGH Carpenter)Mehdi)ISAIAH)([facility])([facility] jaquigreer) on 04/19/2019 01:43 PM --------- - --------- - --------- - FINDINGS Left Atrium Left atrium is moderately dilated. Left Ventricle Left ventricle is normal in size. Moderate to severe left ventricular hypertrophy. Global left ventricular systolic function is normal with an estimated ejection fraction of 55 % . Evidence of diastolic dysfunction. Right Atrium Right atrium is normal in size. Right Ventricle Normal right ventricular size and function. Mitral Valve Thickened mitral valve leaflets. Mild mitral regurgitation. Aortic Valve Aortic valve leaflets are mildly thickened. No aortic stenosis. Tricuspid Valve Normal tricuspid valve leaflets. Mild to moderate tricuspid regurgitation. Estimated right ventricular systolic pressure is 35 mmHg. Pulmonic Valve Technically difficult visualization of the pulmonic valve, no abnormality seen. Pericardial Effusion No significant pericardial effusion is seen. Pleural Effusion No pleural effusion seen. Miscellaneous Normal aortic root dimension. M-mode / 2D Measurements & Calculations: LVIDd:4.49 cm(3.7 - 5.6 cm) Diastolic Volume:66.44 ml LVIDs:2.34 cm(2.2 - 4.0 cm) Systolic Volume:15.12 ml IVSd:1.13 cm(0.6 - 1.1 cm) Aortic Root:3.15 cm(2.0 - 3.7 cm) LVPWd:1.29 cm(0.6 - 1.1 cm) LA Dimension: 4.84 cm(1.9 - 4.0 cm) Fractional Shortenin.88 % LA volume/Index: 52.65 ml /25m^2 Calculated LVEF (%): 77.24 % AV Cusp Separation: 1.6 cm LVOT:2.27 cm RVDd:2.46 cm Mitral: Aortic Valve Area (P1/2-Time): 3.02 cm^2 Peak Velocity: 1.09 m/s Peak E-Wave: 1.19 m/s Peak Gradient: 4.77 mmHg Peak A-Wave: 0.98 m/s E/A Ratio: 1.22 Peak Gradient: 5.7 mmHg Deceleration Time: 251.34 msec P1/2t: 72.89 msec Tricuspid: Pulmonic: Estimated RVSP: 35.46 mmHg Peak Velocity: 1.00 m/s Peak TR Velocity: 2.74 m/s Peak Gradient: 4.04 mmHg Peak TR Gradient: 30.29503 mmHg Estimated RA Pressure: 5 mmHg Estimated PASP: 35.12 mmHg [facility], [place] EKG 12 Leadon 04-19-2019 Atrial Rate 64 BPM [facility], [place] P Mck[place] 70 degrees [facility], [place] P-R Interval 238 ms [facility], [place] Q-T Interval 466 ms [facility], [place] QRS Duration 112 ms [place], [place] QTc Calculation (Bazett) 480 ms [facility], [place] R [place] 23 degrees [facility], [place] T [place] 89 degrees [facility], [place] Ventricular Rate 64 BPM [place], [place] Sinus rhythm with 1s t degree A-V block Low voltage QRS Inferior infarct , age undetermined Cannot rule out Anterior infarct (cited on or before 18-JAN-2019) Abnormal ECG When compared with ECG of 22-FEB-2019 14:45, Incomplete right bundle branch block is no longer Present Nonspecific T wave abnormality, improved in Inferior leads Nonspecific T wave abnormality has replaced inverted T waves in Lateral leads [address], [place], Mhpn Incoming E kg Results From [facility]io [place] - 04/19/2019 6:38 PM EDT Sinus rhythm with 1st degree A-V block Low voltage QRS Inferior infarct , age undetermined Cannot rule out Anterior infarct (cited on or before 18-JAN-2019) Abnormal ECG When compared with ECG of 22-FEB-2019 14:45, Incomplete right bundle branch block is no longer Present Nonspecific T wave abnormality, improved in Inferior leads Nonspecific T wave abnormality has replaced inverted T waves in Lateral leads [address], [place] Protime-INRon 03-22-2019 INR Coag (PPP) [Relative time] 3.1 {INR} [address], [place] CBC Auto Differentialon 03-02 Basophils (Bld) [#/Vol] 0.00 10*3/uL [address], [place] Basophils/100 WBC (Bld) 1 % 0 - 2 % [address], [place] Differential Type [place] Eosinophils (Bld) [#/Vol] 0.10 10*3/uL [address] Eosinophils/100 WBC (Bld) 3 % 0 - 5 % [address] Erythrocyte distribution width (RBC) [Ratio] 14.5 % 12.1 - 15.2 % [address] Hematocrit (Bld) [Volume fraction] 41.4 % 36 - 46 % [address], [place] Hemoglobin (Bld) [Mass/Vol] 13.8 g/dL 12 - 16 g/dL [address], [place] Interpretation and review of laboratory results Abnormal [address], [place] Lymphocytes (Bld) [#/Vol] 1.40 10*3/uL [address] Lymphocytes/100 WBC (Bld) 26 % 15 - 40 % [address] MCH (RBC) [Entitic mass] 30.2 pg 26 - [address] MCHC (RBC) [Mass/Vol] 33.4 g/dL 31 - 37 g/dL [address], [place] MCV (RBC) [Entitic vol] 90.4 fL 80 - [address], [place] Monocytes (Bld) [#/Vol] 0.50 10*3/uL [address], [place] Monocytes/100 WBC (Bld) 10 % High 4 - 8 % [address], [place] Platelet mean volume (Bld) [Entitic vol] NOT REPORTED 6 - 12 fL [place], [place] Platelets (Bld) [#/Vol] 278 10*3/uL [address], [place] Platelets (Bld) [#/Vol] NOT REPORTED [address], [place] RBC (Bld) [#/Vol] 4.58 10*6/uL 4 - 5.2 m/uL [place], [place] RBC morphology finding Nom (Bld) NOT REPORTED [address], [place] Segmented neutrophils/100 WBC (Bld) 60 % 47 - 75 % [address], [place] Segs Absolute 3.30 [place], [place] WBC (Bld) [#/Vol] 5.4 10*3/uL [address] WBC (Bld) [#/Vol] NOT REPORTED per 100 WBC [place], [place] WBC Morphology NOT REPORTED [place] CTA CHEST W CONTRASTon 03-20 Small hiatal hernia. Negative CT scan chest. Negative for pulmonary embolus. [address], [place] EXAMINATION: CTA JESUS ST W CONTRAST HISTORY: Reason for exam:->PE protocol COMPARISON: Chest x-ray 06/15/2018. TECHNIQUE: CT angiography of the pulmonary arteries following the administration of Isovue-370, 100 mL intravenous contrast. Coronal and sagittal MIP (maximum intensity projection) images were performed. Dose reduction techniques were achieved by using automated exposure control and/or adjustment of mA and/or kV according to patient size and/or use of iterative reconstruction technique. FINDINGS: There is good opacification of the pulmonary arteries down to the segmental and proximal subsegmental level without pulmonary embolus. No aortic dissection. Mild calcified plaque aortic arch. No pericardial or pleural effusion. No mediastinal or hilar adenopathy. Major airways are patent. The lungs are clear. Age expected degenerative changes in the thoracic spine. Small hiatal hernia, 2.6 cm diameter. 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 [address], [place], [place]hpn Incoming Radiant Results From [employer] - 03/20/2019 2:45 PM EDT EXAMINATION: CTA CHEST W CONTRAST HISTORY: Reason for exam:->PE protocol COMPARISON: Chest x-ray 06/15/2018. TECHNIQUE: CT angiography of the pulmonary arteries following the administration of Isovue-370, 100 mL intravenous contrast. Coronal and sagittal MIP (maximum intensity projection) images were performed. Dose reduction techniques were achieved by using automated exposure control and/or adjustment of mA and/or kV according to patient size and/or use of iterative reconstruction technique. FINDINGS: There is good opacification of the pulmonary arteries down to the segmental and proximal subsegmental level without pulmonary embolus. No aortic dissection. Mild calcified plaque aortic arch. No pericardial or pleural effusion. No mediastinal or hilar adenopathy. Major airways are patent. The lungs are clear. Age expected degenerative changes in the thoracic spine. Small hiatal hernia, 2.6 cm diameter. 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 IMPRESSION: Small hiatal hernia. Negative CT scan chest. Negative for pulmonary embolus. [address], [place] Comprehensive Metabolic Pane hola 03-20-2019 Albumin [Mass/Vol] 4 g/dL 3.5 - 5.2 g/dL [place], [place] Albumin/Globulin [Mass ratio] NOT REPORTED [address], [place] ALP [Catalytic activity/Vol] 82 U/L 35 - 104 U/L [address] ALT [Catalytic activity/Vol] 26 U/L 5 - 33 U/L [address] Anion gap [Moles/Vol] 13 mmol/L 9 - 17 mmol/L [address] AST [Catalytic activity/Vol] 13 U/L <[address], [place] Bilirubin Ql (U) 0.35 mg/dL 0.3 - 1.2 mg/dL [place], [place] Bun/Cre Ratio 23 High [place], [place] Calcium [Mass/Vol] 10.3 mg/dL 8.6 - 10. 4 mg/dL [address] Chloride [Moles/Vol] 101 mmol/L 98 - 107 mmol/L [address] CO2 [Moles/Vol] 26 mmol/L 20 - 31 mmol/L [address] Creatinine [Mass/Vol] 0.65 mg/dL 0.5 - 0.9 mg/dL [address] GFR >60 >60 mL/min [place], [place] GFR Non- >60 >60 mL/min [address] GFR/1.73 sq M predicted among non-blacks MDRD (S/P/Bld) [Vol rate/Area] NOT REPORTED [address], [place] GFR/1.73 sq M predicted among non-blacks MDRD (S/P/Bld) [Vol rate/Area] [address], [place] Comment on above: Average GFR for 70 o r more years old: 75 mL/min/1.73sq m Chronic Kidney Disease: <60 mL/min/1.73sq m Kidney failure: <15 mL/min/1.73sq m eGFR calculated using average adult body mass. Additional eGFR calculator available at: http://www.Data Maid/multiple_crcl_2012.htm Glucose [Mass/Vol] 214 mg/dL High 70 - 99 mg/dL [place], [place] Potassium [Moles/Vol] 4.1 mmol/L 3.7 - 5.3 mmol/L [address] Protein [Mass/Vol] 7.3 g/dL 6.4 - 8.3 g/dL [place], [place] Sodium [Moles/Vol] 140 mmol/L 135 - 144 mmol/L [address] Urea nitrogen [Mass/Vol] 15 mg/dL 8 - 23 mg/dL [address] Lipid Panelon 03-20-2019 Cholesterol [Mass/Vol] 264 mg/dL High <[address], [place] Comment on above: Cholesterol Guidelines: <200 Desirable 200-240 Borderline >240 Undesirable Cholesterol in HDL [Mass/Vol] 71 mg/dL >[address] Comment on above: HDL Guidelines: <40 Undesirable 40-59 Borderline >59 Desirable Cholesterol in LDL [Mass/Vol] 145 mg/dL High 0 - 130 mg/dL [address] Comment on above: LDL Guidelines: <100 Desirable 100-129 Near to/above Desirable 130-159 Borderline >159 Undesirable Direct (measured) LDL and calculated LDL are not interchangeable tests. Cholesterol in VLDL [Mass/Vol] NOT REPORTED High 1 - 30 mg/dL [address] Cholesterol.total/Ch olesterol in HDL [Mass ratio] 3.7 {ratio} <[address] Triglyceride [Mass/Vol] 238 mg/dL High <[address], [place] Comment on above: Triglyceride Guidelines: <150 Desirable 150-199 Borderline 200-499 High >499 Very high Based on AHA Guidelines for fasting triglyceride, May 2012. MRI BRAIN W WO CONTRASTon 1. No acute findings . No acute infarction. No masses. 2. Moderate chronic microvascular ischemic changes in the cerebral white matter. 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 [address], [place] MRI BRAIN WITH AND WITHOUT CONTRAST, 03/20/2019. HISTORY: Dizziness. COMPARISON: None. TECHNIQUE: Sagittal T1, axial T1, T2, FLAIR, diffusion, T2 gradient, postcontrast axial and coronal T1 images were obtained. 20 mL ProHance. FINDINGS: Paranasal sinuses are clear. Mastoid air cells are clear. Nasopharynx is normal. Stonemason Apprentice spaces are normal. Prior cataract surgery. Ventricles are normal in size. No hydrocephalus. No mass effect. No shift of midline. Moderate chronic microvascular ischemic changes in the cerebral white matter. 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 Internal auditory canals and cerebellopontine angle cisternal spaces are normal. No diffusion restriction. No acute infarction. No hemorrhagic lesions. No pathologic enhancement in the brain. No brain masses. [place] [address], [place] [facility], [facility] Incoming Radiant Results From [employer] - 03/20/2019 3:48 PM EDT MRI BRAIN WITH AND WITHOUT CONTRAST, 03/20/2019. HISTORY: Dizziness. COMPARISON: None. TECHNIQUE: Sagittal T1, axial T1, T2, FLAIR, diffusion, T2 gradient, postcontrast axial and coronal T1 images were obtained. 20 mL ProHance. FINDINGS: Paranasal sinuses are clear. Mastoid air cells are clear. Nasopharynx is normal. Stonemason Apprentice spaces are normal. Prior cataract surgery. Ventricles are normal in size. No hydrocephalus. No mass effect. No shift of midline. Moderate chronic microvascular ischemic changes in the cerebral white matter. 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 Internal auditory canals and cerebellopontine angle cisternal spaces are normal. No diffusion restriction. No acute infarction. No hemorrhagic lesions. No pathologic enhancement in the brain. No brain masses. IMPRESSION: 1. No acute findings. No acute infarction. No masses. 2. Moderate chronic microvascular ischemic changes in the cerebral white matter. 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 [facility]heyELL[facility]ENTERLaurant[facility] Otheron 03-20-2019 Interpretation and review of laboratory results Abnormal [facility] Immature granulocytes (Bld) [#/Vol] NOT REPORTED [facility] Patient Fasting?on 9 Patient Fasting? yes [facility] POC Glucoseon 03-07-2019 Glucose [Mass/Vol] 167 mg/dL High 65 - 99 mg/dL [facility] Interpretation and review of laboratory results Abnormal [facility] Vital Signs Date Time Vital Sign Value Performing Clinician Facility 07-29-2023 09:17-0500 Blood Pressure Location [place] [employer] [facility] 07-29-2023 09:17-0500 Body temperature 98.24 [degF] [facility] [employer] [facility] 07-29-2023 09:17-0500 Diastolic blood pressure 78 mm[Hg] [place] [employer] [facility] 07-29-2023 09:17-0500 Heart rate 76 /min [place] [employer] [facility] 07-29-2023 09:17-0500 Respiratory rate 18 /min [place] [employer] [facility] 07-29-2023 09:17-0500 SaO2% (BldA) [Mass fraction] 95 % Active DSP [facility] 07-29-2023 09:17-0500 Systolic blood pressure 138 mm[Hg] Shyla Cswitch [facility] 07-26-2023 13:00-0500 Blood Pressure Location Active DSP [facility] 07-26-2023 13:00-0500 Diastolic blood pressure 70 mm[Hg] Shyla Cswitch [facility] 07-26-2023 13:00-0500 Heart rate 73 /min Active DSP [facility] 07-26-2023 13:00-0500 SaO2% (BldA) [Mass fraction] 96 % Active DSP [facility] 07-26-2023 13:00-0500 Systolic blood pressure 128 mm[Hg] Shyla Cswitch [facility] 04-28-2023 14:44-0400 Blood Pressure Location [place] [employer] [facility] 04-28-2023 14:44-0400 Diastolic blood pressure 74 mm[Hg] Shyla Cswitch [facility] 04-28-2023 14:44-0400 Heart rate 64 /min Shyla Cswitch [facility] 04-28-2023 14:44-0400 Respiratory rate 18 /min Active DSP [facility] 04-28-2023 14:44-0400 SaO2% (BldA) [Mass fraction] 97 % Active DSP [facility] 04-28-2023 14:44-0400 Systolic blood pressure 142 mm[Hg] Shyla Cswitch [facility] 04-19-2023 14:24-0400 Blood Pressure Location Blanka Contreras [facility] 04-19-2023 14:24-0400 Diastolic blood pressure 66 mm[Hg] Blanka Contreras [facility] 04-19-2023 14:24-0400 Heart rate 71 /min Blanka Lottzier [facility] 04-19-2023 14:24-0400 SaO2% (BldA) [Mass fraction] 94 % Blanka Contreras [facility] 04-19-2023 14:24-0400 Systolic blood pressure 132 mm[Hg] Blanka Contreras [facility] 03-28-2023 19:24-0400 Blood Pressure Location Shyla Cswitch [facility] 03-28-2023 19:24-0400 Body temperature 97.34 [degF] Shyla Cswitch [facility] 03-28-2023 19:24-0400 Diastolic blood pressure 82 mm[Hg] Shyla BROWN [facility] 03-28-2023 19:24-0400 Heart rate 70 /min Shyla Cswitch [facility] 03-28-2023 19:24-0400 Respiratory rate 16 /min Shyla Cswitch [facility] 03-28-2023 19:24-0400 SaO2% (BldA) [Mass fraction] 93 % Shyla BROWN [facility] 03-28-2023 19:24-0400 Systolic blood pressure 138 mm[Hg] Shyla BROWN [facility] 02-11-2023 14:02-0400 Diastolic blood pressure 82 mm[Hg] Shyla BROWN [facility] 02-11-2023 14:02-0400 Mean blood pressure 101 mm[Hg] Shyla BROWN [facility] 02-11-2023 14:02-0400 Systolic blood pressure 138 mm[Hg] Shyla BROWN [facility] 02-11-2023 13:56-0400 Diastolic blood pressure 72 mm[Hg] Shyla BROWN [facility] 02-11-2023 13:56-0400 Mean blood pressure 102 mm[Hg] Shyla BROWN [facility] 02-11-2023 13:56-0400 Systolic blood pressure 162 mm[Hg] Shyla BROWN [facility] 02-11-2023 13:45-0400 Blood Pressure Location Shyla BROWN [facility] 02-11-2023 13:45-0400 Body temperature 98.24 [degF] Shyla BROWN [facility] 02-11-2023 13:45-0400 Diastolic blood pressure 68 mm[Hg] Shyla BROWN [facility] 02-11-2023 13:45-0400 Heart rate 78 /min Shyla BROWN [facility] 02-11-2023 13:45-0400 Respiratory rate 16 /min Shyla PRUETT [facility] 02-11-2023 13:45-0400 SaO2% (BldA) [Mass fraction] 96 % Shyla PRUETT [facility] 02-11-2023 13:45-0400 Systolic blood pressure 158 mm[Hg] Shyla BROWN [facility] 02-04-2023 16:20-0400 Diastolic blood pressure 66 mm[Hg] Yoselin Gene [facility] 02-04-2023 16:20-0400 Mean blood pressure 89 mm[Hg] Yoselin Gene [facility] 02-04-2023 16:20-0400 Systolic blood pressure 136 mm[Hg] Yoselin Gene [facility] 02-04-2023 14:59-0400 Blood Pressure Location Yoselin Gene [facility] 02-04-2023 14:59-0400 Diastolic blood pressure 72 mm[Hg] Yoselin Gene [facility] 02-04-2023 14:59-0400 Heart rate 72 /min Yoselin Gene [facility] 02-04-2023 14:59-0400 Respiratory rate 18 /min Yoselin Gene [facility] 02-04-2023 14:59-0400 SaO2% (BldA) [Mass fraction] 97 % Yoselin Gene [facility] 02-04-2023 14:59-0400 Systolic blood pressure 140 mm[Hg] Yoselin Mills [facility] 01-12-2023 14:14-0400 Blood Pressure Location Shyla Cswitch [facility] 01-12-2023 14:14-0400 Body temperature 97.52 [degF] Shyla Cswitch [facility] 01-12-2023 14:14-0400 Diastolic blood pressure 48 mm[Hg] Shyla Cswitch [facility] 01-12-2023 14:14-0400 Heart rate 76 /min Shyla Cswitch [facility] 01-12-2023 14:14-0400 Respiratory rate 16 /min Shyla Cswitch [facility] 01-12-2023 14:14-0400 SaO2% (BldA) [Mass fraction] 95 % Shyla Cswitch [facility] 01-12-2023 14:14-0400 Systolic blood pressure 136 mm[Hg] Shyla Cswitch [facility] 01-03-2023 11:24-0400 Blood Pressure Location Blanka Contreras [facility] 01-03-2023 11:24-0400 Diastolic blood pressure 70 mm[Hg] Blanka Contreras [facility] 01-03-2023 11:24-0400 Heart rate 73 /min Blanka Contreras [facility] 01-03-2023 11:24-0400 Respiratory rate 18 /min Blanka Contreras [facility] 01-03-2023 11:24-0400 SaO2% (BldA) [Mass fraction] 94 % Blanka Ben [facility] 01-03-2023 11:24-0400 Systolic blood pressure 138 mm[Hg] Blanka Contreras [facility] 11-08-2022 19:02-0400 Blood Pressure Location Shyla Cswitch [facility] 11-08-2022 19:02-0400 Body temperature 96.62 [degF] Shyla Cswitch [facility] 11-08-2022 19:02-0400 Diastolic blood pressure 58 mm[Hg] Shyla Cswitch [facility] 11-08-2022 19:02-0400 Heart rate 79 /min Shyla Cswitch [facility] 11-08-2022 19:02-0400 Respiratory rate 16 /min Shyla Cswitch [facility] 11-08-2022 19:02-0400 SaO2% (BldA) [Mass fraction] 94 % Shyla Cswitch [facility] 11-08-2022 19:02-0400 Systolic blood pressure 128 mm[Hg] Shyla Cswitch [facility] 11-05-2022 12:43-0400 Body height 160 cm Basilio Gonzalez MD Work Phone: [facility] 11-05-2022 12:43-0400 Body mass index (BMI) [Ratio] 43.93 kg/m2 Basilio Gonzalez MD Work Phone: [employer] 11-05-2022 12:43-0400 Body temperature 98.29 [degF] Basilio Gonzalez MD Work Phone: [facility] 11-05-2022 12:43-0400 Body weight 112.49 kg Basilio Gonzalez MD Work Phone: [facility] 11-05-2022 12:43-0400 Diastolic blood pressure 74 mm[Hg] Basilio Gonzalez MD Work Phone: [facility] [employer] 11-05-2022 12:43-0400 Heart rate 78 /min Basilio Gonzalez MD Work Phone: [facility] 11-05-2022 12:43-0400 Respiratory rate 16 /min Basilio Gonzalez MD Work Phone: [facility] 11-05-2022 12:43-0400 SaO2% (BldA) [Mass fraction] 99 % Basilio Gonzalez MD Work Phone: [facility] 11-05-2022 12:43-0400 Systolic blood pressure 108 mm[Hg] Basilio Gonzalez MD Work Phone: [facility] 10-07-2022 10:00-0500 Hourly Rounding Evanjeremiah Pruett [facility] 10-07-2022 10:00-0500 Promise to Return Evan Pruett [facility] 10-07-2022 09:00-0500 Hourly Rounding Evan Pruett [facility] 10-07-2022 09:00-0500 Promise to Return Evan Pruett [facility] 10-07-2022 08:26-0500 gluc 242 mg/dL Evan Flynn [facility] 10-07-2022 08:24-0500 Diastolic blood pressure 66 mm[Hg] Evan Pruett [facility] 10-07-2022 08:24-0500 Heart rate 81 /min Evan Pruett [facility] 10-07-2022 08:24-0500 Systolic blood pressure 159 mm[Hg] Evan Pruett [facility] 10-07-2022 08:00-0500 Hourly Rounding Evan Pruett [facility] 10-07-2022 08:00-0500 Promise to Return Evan Pruett [facility] 10-07-2022 07:37-0500 SaO2% (BldA) [Mass fraction] 94 % Evan Pruett [facility] 10-07-2022 07:26-0500 Heart rate 81 /min Evan Pruett [facility] 10-07-2022 07:26-0500 SaO2% (BldA) [Mass fraction] 92 % Evan Pruett [facility] 10-07-2022 07:22-0500 Body temperature 97.88 [degF] Evan Pruett [facility] 10-07-2022 07:20-0500 Diastolic blood pressure 66 mm[Hg] Evan Pruett [facility] 10-07-2022 07:20-0500 Mean blood pressure 97 mm[Hg] Evan Pruett [facility] 10-07-2022 07:20-0500 Systolic blood pressure 159 mm[Hg] Evan Pruett [facility] 10-07-2022 07:00-0500 Blood Pressure Location Evan Pruett [facility] 10-07-2022 04:20-0500 Body temperature 98.24 [degF] Evan Pruett [facility] 10-07-2022 04:20-0500 Heart rate 79 /min Evan Pruett [facility] 10-07-2022 04:20-0500 Respiratory rate 16 /min Evan Pruett [facility] 10-07-2022 04:20-0500 SaO2% (BldA) [Mass fraction] 94 % Evan Pruett [facility] 10-07-2022 00:03-0500 Body temperature 98.24 [degF] Evan Pruett [facility] 10-07-2022 00:03-0500 Heart rate 83 /min Evan Pruett [facility] 10-07-2022 00:03-0500 Respiratory rate 16 /min Evan Pruett [facility] 10-06-2022 19:00-0500 Blood Pressure Location Evan Pruett [facility] 10-06-2022 16:02-0500 Mean blood pressure 108 mm[Hg] Evan Pruett [facility] 10-06-2022 15:23-0500 Body temperature 97.88 [degF] Evan Pruett [facility] 10-06-2022 15:23-0500 Respiratory rate 14 /min Evan Pruett [facility] 10-06-2022 15:20-0500 Respiratory rate 12 /min Evan Pruett [facility] 10-06-2022 15:05-0500 Respiratory rate 12 /min Evan Pruett [facility] 10-06-2022 14:34-0500 Body temperature 97.52 [degF] Evan Flynn [facility] 10-06-2022 14:30-0500 FIO2 100 % Evan Pruett [facility] 10-06-2022 14:25-0500 FIO2 100 % Evan Pruett [facility] 10-06-2022 14:20-0500 FIO2 30 % Evan Pruett [facility] 10-06-2022 10:50-0500 Heart rate 72 /min Evan Pruett [facility] 10-06-2022 10:48-0500 Mean blood pressure 116 mm[Hg] Evan Pruett [facility] 09-23-2022 10:19-0500 Diastolic blood pressure 77 mm[Hg] Evan Pruett [facility] 09-23-2022 10:19-0500 Heart rate 72 /min Evan Pruett [facility] 09-23-2022 10:19-0500 Mean blood pressure 98 mm[Hg] Evan Pruett [facility] 09-23-2022 10:19-0500 Systolic blood pressure 139 mm[Hg] Evan Pruett [facility] 09-23-2022 10:19-0500 Blood Pressure Location Evan Pruett [facility] 09-23-2022 10:19-0500 Body temperature 97.7 [degF] Evan Pruett [facility] 09-23-2022 10:18-0500 Heart rate 73 /min Evan Pruett [facility] 09-23-2022 10:18-0500 SaO2% (BldA) [Mass fraction] 95 % Evan Pruett [facility] 09-23-2022 10:17-0500 Diastolic blood pressure 84 mm[Hg] Evan Pruett [facility] 09-23-2022 10:17-0500 Mean blood pressure 102 mm[Hg] Evan Pruett [facility] 09-23-2022 10:17-0500 Systolic blood pressure 139 mm[Hg] Evan Pruett [facility] 09-23-2022 10:17-0500 Respiratory rate 18 /min Evan Pruett [facility] 09-23-2022 10:17-0500 Blood Pressure Location Evan Pruett [facility] 01-21-2022 13:16-0400 Blood Pressure Location Shyla Cswitch [facility] [place] 01-21-2022 13:16-0400 Body temperature 98.06 [degF] Shyla Cswitch [facility] [place] 01-21-2022 13:16-0400 Diastolic blood pressure 70 mm[Hg] Shyla Cswitch [facility] [place] 01-21-2022 13:16-0400 Heart rate 72 /min Shyla Cswitch [facility] [place] 01-21-2022 13:16-0400 Respiratory rate 16 /min Shyla Cswitch [facility] [place] 01-21-2022 13:16-0400 SaO2% (BldA) [Mass fraction] 94 % Shyla Cswitch [facility] [place] 01-21-2022 13:16-0400 Systolic blood pressure 140 mm[Hg] Shyla BROWN [facility] [place] 12-17-2021 14:26-0400 Diastolic blood pressure 62 mm[Hg] Shyla BROWN [facility] [place] 12-17-2021 14:26-0400 Mean blood pressure 88 mm[Hg] Shyla BROWN [facility] [place] 12-17-2021 14:26-0400 Systolic blood pressure 140 mm[Hg] Shyla BROWN [facility] [place] 12-17-2021 13:12-0400 Blood Pressure Location Shyla BROWN [facility] [place] 12-17-2021 13:12-0400 Body temperature 97.88 [degF] Shyla BROWN [facility] [place] 12-17-2021 13:12-0400 Diastolic blood pressure 50 mm[Hg] Shyla BROWN [facility] [place] 12-17-2021 13:12-0400 Heart rate 77 /min Shyla BROWN [facility] [place] 12-17-2021 13:12-0400 Respiratory rate 16 /min Shyla BROWN [facility] [place] 12-17-2021 13:12-0400 SaO2% (BldA) [Mass fraction] 94 % Shyla Cswitch [facility] [place] 12-17-2021 13:12-0400 Systolic blood pressure 146 mm[Hg] [facility] 09-23-2020 05:32-0500 BP Diastolic 52 mm[Hg] [employer] Work Phone: 09-23-2020 05:32-0500 BP Systolic 136 mm[Hg] [employer] Phone: 09-23-2020 05:32-0500 Pulse (Heart Rate) 82 /min [employer] Phone: 09-23-2020 05:32-0500 Pulse Oximetry 97 % [employer] Phone: 09-23-2020 05:32-0500 Respiratory Rate 16 /min [employer] Phone: 09-23-2020 02:55-0500 Body Temperature 98.6 [degF] [employer] Phone: 03-22-2019 11:13-0400 BMI (Body Mass Index) 41.88 kg/m2 [place] 03-22-2019 11:13-0400 Body weight 107.23 kg [place] [employer] [place] 03-22-2019 11:13-0400 BP Diastolic 52 mm[facility]Hg[facility] [place] 03-22-2019 11:13-0400 BP Systolic 115 mm[Hg] [facility] [place] 03-22-2019 11:13-0400 Pulse (Heart Rate) 69 /min [facility] [place] 03-07-2019 13:08-0400 BP Diastolic 80 mm[Hg] Sreedhar Floyd [facility] 03-07-2019 13:08-0400 BP Systolic 152 mm[Hg] Sreedhar Floyd [facility] 03-07-2019 13:08-0400 Pulse (Heart Rate) 64 /min Sreedhar Floyd [facility] 03-07-2019 13:08-0400 Pulse Oximetry 96 % Sreedhar Floyd [facility] 03-07-2019 13:08-0400 Respiratory Rate 16 /min Sreedhar Floyd [facility] 03-07-2019 09:29-0400 BMI (Body Mass Index) 40.74 kg/m2 [facility] 03-07-2019 09:290400 Body weight 104.33 kg Sreedhar Floyd [facility] 03-07-2019 09:290400 Height 160 cm Sreedhar Floyd [facility] 03-07-2019 09:0400 Body Temperature 97.9 [degF] [facility] En[facility] Encounter Date Encounter Type Care Provider Facility Start: 07-26-2024 ambulatory Shyla PRUETT Facility: [place] Start: 07-29-2023 End: 07-30-2023 ambulatory Shyla PRUETT Facility: [place] Start: 07-29-2023 End: 07-29-2023 Patient encounter procedure Shyla PRUETT [facility] [place] Start: 07-26-2023 End: 07-27-2023 ambulatory Shyla PRUETT Facility: [place] Start: 07-26-2023 End: 07-26-2023 Patient encounter procedure Shyla PRUETT [facility] [place] Start: 07-26-2023 End: 07-26-2023 Well adult monitoring check done Shyla PRUETT [facility] [place] Start: 07-04-2023 End: 07-05-2023 ambulatory Shyla PRUETT Facility: [place] Start: 07-04-2023 End: 07-04-2023 Patient encounter procedure Shyla PRUETT [facility] [place] Start: 05-02-2023 End: 05-03-2023 ambulatory Shyla PRUETT Facility:[facility] Start: 05-02-2023 End: 05-02-2023 Patient encounter procedure Shyla PRUETT [facility] Start: 04-28-2023 End: 04-29-2023 ambulatory Shyla PRUETT Facility[facility] Start: 04-28-2023 End: 04-28-2023 Patient encounter procedure Shyla PRUETT [facility] [place] Start: 04-19-2023 End: 04-20-2023 ambulatory Blanka Contreras Facility: [place] Start: 04-19-2023 End: 04-19-2023 Patient encounter procedure Blanka Contreras [facility] [place] Start: 03-28-2023 End: 03-29-2023 ambulatory Shyla PRUETT Facility: [place] Start: 03-28-2023 End: 03-28-2023 Patient encounter procedure Shyla PRUETT [facility] [place] Start: 03-04-2023 ambulatory MSN, 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 Yoselin Mills Facility: [place] Start: 02-21-2023 ambulatory Shyla PRUETT Facility: [place] Start: 02-14-2023 End: 02-15-2023 ambulatory Shyla PRUETT Facility: [facility] Start: 02-11-2023 End: 02-12-2023 ambulatory Shyla PRUETT Facility: [facility] Start: 02-11-2023 End: 02-11-2023 [facility] Start: 02-04-2023 End: 02-05-2023 ambulatory 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, 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 Yoselin Mills Facility[facility] Start: 02-04-2023 End: 02-04-2023 Patient encounter procedure Yoselin Mills [facility] Start: 01-31-2023 ambulatory [facility] Start: 01-26-2023 End: 01-27-2023 ambulatory [facility] Start: 01-26-2023 End: 01-26-2023 Subsequent hospital visit by physician Ashley Brower PT [facility] Comment on above: Arrived Start: 01-18-2023 End: 01-21-2023 ambulatory SHYLA [facility] Start: 01-18-2023 End: 01-20-2023 Subsequent hospital visit by physician Shyla Pruett MD Work Phone: [facility] Start: 01-13-2023 End: 01-13-2023 Subsequent hospital visit by physician Mehran Pruett PT [facility] Start: 01-12-2023 End: 01-13-2023 ambulatory Shyla PRUETT Facility[facility] Start: 01-12-2023 End: 01-12-2023 Patient encounter procedure Shyla PRUETT [facility] Start: 01-03-2023 End: 01-04-2023 ambulatory Shyla PRUETT Facility:[facility] Start: 01-03-2023 End: 01-04-2023 ambulatory Blanka Contreras Facility[facility] Start: 01-03-2023 End: 01-03-2023 Lab Drop off Shyla PRUETT [facility] Start: 01-03-2023 End: 01-03-2023 Patient encounter procedure Blanka Contreras [facility] Start: 12-20-2022 End: 12-21-2022 ambulatory Shyla PRUETT Facility[facility] Start: 11-18-2022 ambulatory ALEJANDRO DCEKER Facility:[facility] Start: 11-08-2022 End: 11-09-2022 ambulatory Shyla PRUETT Facility:[facility] Start: 11-08-2022 End: 11-08-2022 Patient encounter procedure Shyla PRUETT [facility] Start: 11-08-2022 End: 11-09-2022 ambulatory Shyla PRUETT Facility[facility] Start: 11-08-2022 End: 11-08-2022 Patient encounter procedure Shyla PRUETT [facility] Start: 11-05-2022 End: 11-05-2022 Emergency department patient visit SHYLA J [facility] Start: 11-05-2022 End: 11-05-2022 Emergency department patient visit Basilio Gonzalez MD Work Phone: [facility] ED Comment on above: Fall, initial encoun ter (Primary Dx); Injury of left shoulder, initial encounter Start: 10-27-2022 End: 10-28-2022 ambulatory PANKAJ FLOYD [facility] Start: 10-27-2022 End: 10-27-2022 Subsequent hospital visit by physician Shyla Pruett MD Work Phone: [facility] Laboratory Comment on above: Atrial fibrillation, unspecified type (HCC); Hyperlipidemia, unspecified hyperlipidemia type; Abnormal EKG; Aortic aneurysm without rupture, unspecified portion of aorta (HCC) Atrial fibrillation, unspecified type (HCC) Start: 10-08-2022 End: 10-08-2022 ambulatory Shyla PRUETT Facility:[id number] Start: 10-06-2022 End: 10-07-2022 ambulatory Evan Pruett Facility:[facility] Start: 10-06-2022 End: 10-07-2022 Observation Evan Pruett [facility] Start: 09-23-2022 End: 09-24-2022 ambulatory Evan A Flynn Facility:[id number] Start: 09-23-2022 End: 09-23-2022 Patient encounter procedure Evan Pruett [facility] Start: 08-24-2022 End: 08-25-[address] CEASAR FAIRBANKS Facility:[facility] Start: 07-15-2022 Encounter for preprocedural laboratory examination DR CEASAR FAIRBANKS [facility] Start: 07-13-2022 End: 07-13-[address] CEASAR FAIRBANKS Facility:[facility] Start: 07-09-2022 End: 07-10-[address] CEASAR FAIRBANKS Facility:[facility] Start: 07-09-2022 End: 07-10-2022 Encounter for preprocedural laboratory examination DR CEASAR FAIRBANKS Facility:[facility] Start: 06-10-2022 End: 06-11-2022 ambulatory ALEJANDRO DECKER Facility:[facility] Start: 06-03-2022 End: 06-04-[address] CEASAR FAIRBANKS Facility:[facility] Start: 05-18-2022 End: 05-18-[address] CEASAR FAIRBANKS Facility:[facility] Start: 05-06-[address] CEASAR Badillo ty:[facility] Start: 04-26-2022 End: 04-27-2022 ambulatory ADELINA MCCORMACK [facility] Start: 04-20-[address] CEASAR Badillo ty:[facility] Start: 04-16-2022 End: 04-16-2022 ambulatory SREEDHAR VU [facility] Start: 04-02-2022 End: 04-03-[address] CEASAR FAIRBANKS Facility:[facility] Start: 04-01-2022 End: 04-02-2022 ambulatory PANKAJ Damico [facility] Start: 04-01-2022 Encounter for other preprocedural examination PANKAJ [facility] Start: 04-01-2022 End: 04-01-2022 Patient encounter status Shyla Pruett MD Work Phone: [facility] Start: 04-01-2022 End: 04-01-2022 Subsequent hospital visit by physician Shyla Pruett MD Work Phone: [facility] Comment on above: Atrial fibrillation, unspecified type (HCC); Hyperlipidemia, unspecified hyperlipidemia type; Pre-op testing Start: 03-02-2022 End: 03-05-2022 [facility] Start: 03-02-2022 End: 03-04-2022 Subsequent hospital visit by physician Chanda Stress Rm [facility] Comment on above: Arrived Atrial fibrillation, unspecified type (HCC); SOB (shortness of breath) Atrial fibrillation, unspecified type (HCC); SOB (shortness of breath); Abnormal EKG Start: 02-23-2022 End: 02-26-2022 [facility] Start: 02-23-2022 End: 02-25-2022 Subsequent hospital visit by physician Chanda Additional Xray At Mw [facility] Comment on above: SOB (shortness of br eath); Atrial fibrillation, unspecified type (HCC); Other fatigue; Hyperlipidemia, unspecified hyperlipidemia type SOB (shortness of br eath); Atrial fibrillation, unspecified type (HCC); Other fatigue; Hyperlipidemia, unspecified hyperlipidemia type; Vitamin D deficiency Start: 02-04-2022 End: 02-05-[address] CEASAR FAIRBANKS Facility:[facility] Start: 01-21-2022 End: 01-21-2022 Patient encounter procedure Shyla PRUETT [facility] Start: 01-19-2022 End: 01-19-[address] CEASAR FAIRBANKS Facility:[facility] Start: 12-25-2021 End: 12-25-2021 Patient encounter procedure Shyla PRUETT [facility] Start: 12-23-2021 End: 12-24-2021 ambulatory ALEJANDRO DECKER Facility:[facility] Start: 12-23-2021 End: 12-24-[address] CEASAR FAIRBANKS Facility:[facility] Start: 12-17-2021 End: 12-17-2021 Lab Drop off Shyla PRUETT [facility] Start: 12-17-2021 End: 12-17-2021 Patient encounter procedure Shyla PRUETT [facility] [place] Start: 11-03-2021 End: 11-03-[address] CEASAR FAIRBANKS Facility:[facility] Start: 10-15-2021 End: 10-16-[address] CEASAR FAIRBANKS Facility:[facility] Start: 09-29-2021 End: 09-29-[address] CEASAR FAIRBANKS Facility: Start: 07-17-2021 End: 07-18-2021 ambulatory YONNY HONR Facility:[facility] Start: 07-14-2021 End: 07-14-2021 Subsequent hospital visit by physician jacob [email or web address] Pat Screening Schedule [facility] PRE ADMIT Comment on above: Arrived Start: 03-20-2021 End: 03-21-2021 ambulatory SHYLA PRUETT Facility:[facility] Start: 01-19-2021 End: 01-20-2021 ambulatory YONNY HORN Facility:[facility] Start: 01-15-2021 End: 01-16-2021 ambulatory SHYLA PRUETT Facility:[facility] Start: 11-27-2020 End: 11-27-2020 Subsequent hospital visit by physician Shyla Pruett MD Work Phone: [facility] Comment on above: Ascending aortic ane urysm (HCC); Atrial fibrillation, unspecified type (HCC); Hypertension, unspecified type; Vitamin D deficiency; Elevated blood sugar Start: 09-23-2020 End: 09-23-2020 Emergency department patient visit Pavan Alejandre Work Phone: [facility] ED Comment on above: Dizziness (Primary D x); Anemia of unknown etiology Start: 09-06-2020 End: 02-06-2021 Orders Only Leeann oMss Work Phone: [facility] Start: 09-03-2020 End: 09-05-2020 Subsequent hospital visit by physician [facility] Cat Scan Room [facility] Comment on above: SOB (shortness of br eath) Atrial fibrillation, unspecified type (HCC); Hypertension, unspecified type; Elevated blood sugar; Vitamin D deficiency Ascending aortic ane urysm (HCC) Atrial fibrillation, unspecified type (HCC); Hypertension, unspecified type; Elevated blood sugar Start: 07-07-2020 End: 07-08-2020 Patient encounter procedure YE CASTANEDA [facility] Start: 07-07-2020 End: 07-07-2020 Subsequent hospital visit by physician Shyla [facility] Laboratory Comment on above: Urge incontinence; Pelvic pain Start: 06-04-2020 End: 06-04-2020 Subsequent hospital visit by physician Shyla Pruett [facility] EKG Comment on above: Atrial fibrillation, unspecified type (HCC) Start: 03-25-2020 End: 03-27-2020 Subsequent hospital visit by physician [facility] Cat Scan Room [facility] CT Scan Comment on above: Arrived Start: 03-25-2020 End: 03-27-2020 Subsequent hospital visit by physician [facility] Cat Scan Room [facility] Laboratory Comment on above: Microscopic hematuri a Start: 03-04-2020 End: 03-04-2020 Subsequent hospital visit by physician Shyla Pruett [facility] RES[facility]ORY [facility]ERAP[facility] Comment on above: Atrial fibrillation, unspecified type (HCC); Hypertension, unspecified type; Elevated blood sugar Start: 02-28-2020 End: 02-29-2020 Patient encounter procedure NICOLE BO [facility] Start: 02-28-2020 End: 02-28-2020 Subsequent hospital visit by physician Shyla [facility] Laboratory Comment on above: Nocturia; Urge incontinence; Vaginal itching Start: 09-19-2019 End: 09-19-2019 Subsequent hospital visit by physician [facility] Card Rehab Therapist 4 [facility] Comment on above: Arrived Start: 09-17-2019 End: 09-17-2019 Subsequent hospital visit by physician Chanda 4 [facility] Comment on above: Arrived Start: 09-12-2019 End: 09-12-2019 Subsequent hospital visit by physician [facility] 4 [facility] CARDIAC REHAB Comment on above: Arrived Start: 09-10-2019 End: 09-10-2019 Subsequent hospital visit by physician [facility] 4 [facility] CARD[facility] Comment on above: Arrived Start: 09-05-2019 End: 09-05-2019 Subsequent hospital visit by physician [facility] 4 [facility] CARDIAC REHAB Comment on above: Arrived Start: 09-03-2019 End: 09-03-2019 Subsequent hospital visit by physician [address] CARDIAC REHAB Comment on above: Arrived Start: 08-16-2019 End: 08-18-2019 Subsequent hospital visit by physician Shyla Pruett MD Work Phone: [facility] Comment on above: Uveitis; Atrial fibrillation, unspecified type (HCC); Hypertension, unspecified type Start: 08-13-2019 End: 08-13-2019 Subsequent hospital visit by physician [facility] 4 [facility] CARD[facility] RE[facility] Comment on above: Arrived Start: 08-10-2019 End: 08-10-2019 Subsequent hospital visit by physician Shyla Pruett MD Work Phone: [facility] Comment on above: SOB (shortness of br eath); LVH (left ventricular hypertrophy); Angina, class III (HCC); Atrial fibrillation, unspecified type (HCC); Vitamin D deficiency; Lipid screening Start: 08-06-2019 End: 08-06-2019 Subsequent hospital visit by physician [facility] 4 [facility] CARDIAC RE[facility]AB Comment on above: Arrived Start: 08-03-2019 End: 08-03-2019 Subsequent hospital visit by physician [facility] 4 [facility] CARDIAC REHAB Comment on above: Arrived Start: 07-30-2019 End: 07-30-2019 Subsequent hospital visit by physician [facility] 4 [facility] CARDIAC REHAB Comment on above: Arrived Start: 07-20-2019 End: 07-20-2019 Subsequent hospital visit by physician [facility] 4 [facility] CARDIAC REHAB Comment on above: Arrived Start: 07-13-2019 End: 07-13-2019 Subsequent hospital visit by physician [facility] 4 [facility] CARDIAC REHAB Comment on above: Arrived Start: 07-09-2019 End: 07-09-2019 Subsequent hospital visit by physician [facility] 4 [facility] CARDIAC REHAB Comment on above: Arrived Start: 07-06-2019 End: 07-06-2019 Subsequent hospital visit by physician [facility] Card Rehab Therapist 4 [facility] Comment on above: Arrived Start: 07-04-2019 End: 07-04-2019 Subsequent hospital visit by physician [facility] Card Rehab Therapist 4 [facility] Comment on above: Arrived Start: 06-25-2019 End: 06-25-2019 Subsequent hospital visit by physician [facility] Card Rehab Therapist 4 [facility] Comment on above: Arrived Start: 06-22-2019 End: 06-22-2019 Subsequent hospital visit by physician [facility] Card Rehab Therapist 4 [facility] Comment on above: Arrived Start: 06-20-2019 End: 06-20-2019 Subsequent hospital visit by physician [facility] Card Rehab Therapist 4 [facility] Comment on above: Arrived Start: 06-15-2019 End: 06-15-2019 Subsequent hospital visit by physician [facility] Card Rehab Therapist 4 [facility] Comment on above: Arrived Start: 06-13-2019 End: 06-13-2019 Subsequent hospital visit by physician [facility] Card Rehab Therapist 4 [facility] Comment on above: Arrived Start: 06-11-2019 End: 06-11-2019 Subsequent hospital visit by physician [facility] Card Rehab Therapist 4 [facility] Comment on above: Arrived Start: 06-04-2019 End: 06-04-2019 Subsequent hospital visit by physician [facility] Card Rehab Therapist 4 [facility] Comment on above: Arrived Start: 06-01-2019 End: 06-01-2019 Subsequent hospital visit by physician [facility] Card Rehab Therapist 4 [facility] Comment on above: Arrived Start: 05-30-2019 End: 05-30-2019 Subsequent hospital visit by physician [facility] Card Rehab Therapist 4 [facility] Comment on above: Arrived Start: 05-28-2019 End: 05-28-2019 Subsequent hospital visit by physician [facility] Card Rehab Therapist 4 [facility] Comment on above: Arrived Start: 05-18-2019 End: 05-18-2019 Subsequent hospital visit by physician [facility] Card Rehab Therapist 4 [facility] Comment on above: Arrived Start: 05-16-2019 End: 05-16-2019 Subsequent hospital visit by physician [facility] Card Rehab Therapist 4 [facility] Comment on above: Arrived Start: 05-11-2019 End: 05-11-2019 Subsequent hospital visit by physician [facility] Card Rehab Therapist 4 [facility] Comment on above: Arrived Start: 05-04-2019 End: 05-04-2019 Subsequent hospital visit by physician [facility] Card Rehab Therapist 4 [facility] CARDIAC REHAB Comment on above: Arrived Start: 04-30-2019 End: 04-30-2019 Subsequent hospital visit by physician [facility] Card Rehab Therapist 4 [facility] CARDIAC REHAB Comment on above: Arrived Start: 04-23-2019 End: 04-23-2019 Subsequent hospital visit by physician [facility] Card Rehab Therapist 4 [facility] CARDIAC REHAB Comment on above: Arrived Start: 04-20-2019 End: 04-20-2019 Subsequent hospital visit by physician [facility] Card Rehab Therapist 4 [facility] CARDIAC REHAB Comment on above: Arrived Start: 04-19-2019 End: 04-19-2019 Subsequent hospital visit by physician [facility] Echo Room Anabel Edy [facility] RES[facility]ORY [facility]ERAP[facility] Comment on above: SOB (shortness of br eath); LVH (left ventricular hypertrophy); Angina, class III (HCC) SOB (shortness of br eath); LVH (left ventricular hypertrophy) SOB (shortness of br eath) Start: 04-18-2019 End: 04-18-2019 Subsequent hospital visit by physician [facility] Card Rehab Therapist 4 [facility] CARDIAC REHAB Comment on above: Arrived Start: 04-17-2019 End: 04-17-2019 Subsequent hospital visit by physician Pepe Jasmine [facility] CARDIAC REHAB Start: 03-22-2019 End: 03-22-2019 Subsequent hospital visit by physician Kenisha Gama [facility] Medication Manangement Comment on above: care home (current) use of anticoagulants Start: 03-20-2019 End: 03-22-2019 Subsequent hospital visit by physician [facility] Mri Scanner Edy [facility] Laboratory Comment on above: Atrial fibrillation, unspecified type (HCC); Hypertension, unspecified type Dizziness SOB (shortness of br eath) Start: 03-07-2019 End: 03-07-2019 Subsequent hospital visit by physician Sreedhar Floyd Work Phone: [facility] Procedural Care Unit Procedures Date Procedure Procedure Detail Performing Clinician Start: 11-05-2022 Radex shoulder complete minimum 2 views Basilio Gonzalez MD Work Phone: Start: 03-29-2023 Ecg routine ecg w/least 12 lds w/i&r Pankaj Floyd MD Work Phone: Start: 10-27-2022 Comprehensive metabolic panel Pankaj marquez MD Work Phone: Start: 10-27-2022 Lipid panel Pankaj Floyd MD Work Phone: Start: 10-27-2022 PATIENT FASTING? Pankaj Floyd MD Work Phone: Start: 10-07-2022 Arthroscopy of shoulder with biceps tenodesis Evan Pruett Start: 04-01-2022 Ecg routine ecg w/least 12 lds w/i&r Pankaj Floyd MD Work Phone: Start: 04-01-2022 Comprehensive metabolic panel Pankaj marquez MD Work Phone: Start: 04-01-2022 PATIENT FASTING? Pankaj Floyd MD Work Phone: Start: 03-03-2022 STRESS TEST, LEXISCAN Pankaj Floyd MD Work Phone: Start: 03-02-2022 Myocardial spect multiple studies Pankaj Floyd MD Work Phone: Start: 02-23-2022 Radiologic exam chest 2 views Pankaj marquez MD Work Phone: Start: 02-23-2022 Comprehensive metabolic panel Pankaj marquez MD Work Phone: Start: 02-23-2022 Lipid panel Pankaj Floyd MD Work Phone: Start: 02-23-2022 PATIENT FASTING? Pankaj Floyd MD Work Phone: Start: 02-23-2022 Ecg routine ecg w/least 12 lds w/i&r Pankaj Floyd MD Work Phone: Start: 01-19-2022 Injection - action (qualifier value) Shyla PRUETT Comment on above: [facility]- L2,3,4,5 Start: 11-03-2021 Ablation - action (qualifier value) Shyla PRUETT Comment on above: [facility] Start: 07-17-2021 Endoscopy of upper gastrointestinal tract and excision of polyp of duodenum Shyla PRUETT Start: 03-20-2021 Anes intraperitoneal upper abdomen w/laps nos SHYLA PRUETT Start: 03-20-2021 Laparoscopic cholecystectomy OMAR GRETCHEN [place] Start: 03-20-2021 Cholecystectomy Shyla PRUETT Comment on above: Dr Singleton [facility] Start: 11-27-2020 Comprehensive metabolic panel Pankaj marquez MD Work Phone: Start: 11-27-2020 Ecg routine ecg w/least 12 lds w/i&r Pankaj Floyd MD Work Phone: Start: 09-23-2020 Blood occult peroxidase actv qual feces 1-3 spec Pavan Birdmore Work Phone: Start: 09-23-2020 End: 09-23-2020 Gluc bld gluc mntr dev cleared fda spec home use Pavan Birdmore Work Phone: Start: 09-23-2020 Urinalysis microscopic only Pavan whalen Work Phone: Start: 09-23-2020 Urnls dip stick/tablet rgnt auto w/o microscopy Pavan Kaur Pili Work Phone: Start: 09-23-2020 Radiologic exam chest single view Naga Kaur Pili Work Phone: Start: 09-23-2020 Ct head/brain w/o contrast material Pavan Alejandre Work Phone: Start: 09-23-2020 End: 09-23-2020 Gluc bld gluc mntr dev cleared fda spec home use Pavan Kaur Pili Work Phone: Start: 09-23-2020 Assay of troponin quantitative Pavan Alejandre Work Phone: Start: 09-23-2020 Blood count complete auto&auto difrntl wbc Pavan Alejandre Work Phone: Start: 09-23-2020 Fibrin dgradj products d-dimer quantitative Pavan Alejandre Work Phone: Start: 09-23-2020 Ecg routine ecg w/least 12 lds w/i&r Pavan Alejandre Work Phone: Start: 09-03-2020 Ct angiography chest w/contrast/noncontrast Pankaj Floyd Work Phone: Start: 09-03-2020 Radiologic exam chest 2 views Pankaj duggana Work Phone: Start: 09-03-2020 Ecg routine ecg w/least 12 lds w/i&r Pankaj Floyd Work Phone: Start: 09-03-2020 25 hydroxy includes fractions if performed Pankaj Floyd Work Phone: Start: 09-03-2020 Assay of magnesium Pankaj Floyd Work Phone: Start: 09-03-2020 Assay of thyroid stimulating hormone tsh Pankaj Floyd Work Phone: Start: 09-03-2020 Blood count complete auto&auto difrntl wbc Pankaj Terryaa Work Phone: Start: 09-03-2020 Comprehensive metabolic panel Pankaj Wise esaa Work Phone: Start: 09-03-2020 Hemoglobin glycosylated a1c Pankaj Terry aa Work Phone: Start: 09-03-2020 Lipid panel Pankaj Floyd Work Phone: Start: 07-07-2020 Culture bacterial quanttative colony count urine NICOLE BO Start: 07-07-2020 Urnls dip stick/tablet reagent auto microscopy NICOLE BO Start: 07-07-2020 Urnls dip stick/tablet reagent auto microscopy Ye Castaneda Work Phone: Start: 06-11-2020 Colonoscopy Shyla PRUETT Start: 06-04-2020 Ecg routine ecg w/least 12 lds w/i&r Pankaj Floyd Work Phone: Start: 03-25-2020 3d rendering w/interp & postprocess supervision Nicole Bo Work Phone: Start: 03-25-2020 Ct abdomen & pelvis w/o contrst 1/> body re Nicole Bo Work Phone: Start: 03-25-2020 Assay of urea nitrogen quantitative Ye Hawkinssteve Work Phone: Start: 03-04-2020 Ecg routine ecg w/least 12 lds w/i&r Pankaj Floyd Work Phone: Start: 02-28-2020 Urnls dip stick/tablet reagent auto microscopy NICOLE BO Start: 02-28-2020 Culture bacterial quanttative colony count urine NICOLE [employer] Start: 02-28-2020 Smr prim src wet mount nfct agt NICOLE [employer] Start: 02-28-2020 Urnls dip stick/tablet reagent auto microscopy Nicole Bo Work Phone: Start: 02-28-2020 Smr prim src wet mount nfct agt Nicole Tavarez [employer] Work Phone: Start: 08-16-2019 Radiologic exam chest 2 views Pankaj marquez MD Work Phone: Start: 08-16-2019 C-reactive protein Pankaj Floyd MD Work Phone: Start: 08-16-2019 Sedimentation rate rbc automated Pankaj Floyd MD Work Phone: Start: 08-16-2019 Urinalysis microscopic only Pankaj villasenor MD Work Phone: Start: 08-16-2019 Urnls dip stick/tablet rgnt auto w/o microscopy Pankaj Floyd MD Work Phone: Start: 08-10-2019 Comprehensive metabolic panel Pankaj marquez MD Work Phone: Start: 08-10-2019 Lipid panel Pankaj Floyd MD Work Phone: Start: 08-10-2019 PATIENT FASTING? Pankaj Floyd MD Work Phone: Start: 05-11-2019 CARDIAC PHASE II Hpf Scanning Start: 04-19-2019 End: 04-19-2019 Ecg routine ecg w/least 12 lds w/i&r Pankaj Floyd Work Phone: Start: 04-19-2019 EKG REPORT Hpf Scanning Start: 04-19-2019 NEBULIZER TX INTERMITTENT Tone Back Work Phone: Start: 03-22-2019 Prothrombin time Historical Provider Start: 03-20-2019 Ct angiography chest w/contrast/noncontrast Pankaj Floyd Work Phone: Start: 03-20-2019 Mri brain brain stem w/o w/contrast material Pankaj Floyd Work Phone: Start: 03-20-2019 Blood count complete auto&auto difrntl wbc Pankaj Floyd Work Phone: Start: 03-20-2019 Comprehensive metabolic panel Pankaj marquez Work Phone: Start: 03-20-2019 Lipid panel Pankaj Floyd Work Phone: Start: 03-20-2019 PATIENT FASTING? Pankaj Floyd Work Phone: Start: 03-07-2019 Cardiac catheterization Sreedhar Floyd Work Phone: Start: 03-07-2019 Glucose [Mass/volume] in Blood Sreedhar Floyd Work Phone: Appendectomy Shyla PRUETT bilateral carpal tunnel elease 3 Shyla PRUETT Comment on above: Shine bilateral carpal tunnel elease 4 Shyla PRUETT Comment on above: Shine bilateral carpal tunnel elease 4 Evan Brown Comment on above: Shine Bilateral cataract 4 Shyla ALLISON Comment on above: Obenauf Bilateral cataract 5 Shyla ALLISON Comment on above: Obenauf Bilateral cataract 5 Evan allison Comment on above: Obenauf Cardiac catheterization Ronen PRUETT Carpal tunnel syndrome (disorder) Shyla PRUETT Cataract (disorder) Shyla ROLDAN Esophagogastroduoden oscopy gastric outlet reduction Shyla PRUETT [employer] Comment on above: polyp removed during EGD pt does not rem emebr the date maybe July 2021 at [facility] Shyla Baton L 4-5t toes --- bone s and toenails removed 6 Shyla Baton Comment on above: Michael 2003 L 4-5t toes --- bone s and toenails removed 7 [employer] Comment on above: Michael 2003 L 4-5t toes --- bone s and toenails removed 7 Evan [employer] Comment on above: Michael 2003 L and R rotator cuff 7 [employer] Comment on above: Eddie 2007 L and R rotator cuff 8 [employer] Comment on above: Eddie 2007 L and R rotator cuff 8 [employer] Comment on above: Eddie 2006 R hand tendons 8 [employer] Comment on above: Eddie 2008 R hand tendons 9 [employer] Comment on above: Eddie 2009 R hand tendons 9 [employer] Comment on above: Eddie 2009 R ulna n transposition 10 Vi caseyi Cswitch Comment on above: Shine 2003 R ulna n transposition 10 Ja jeremiah [employer] Comment on above: Shine 2003 R ulna n transposition 9 Maikol sheets [employer] Comment on above: Shine 2004 right ankle surgery 10 Shyla Cswitch Comment on above: plates and screws (then removed) right ankle surgery 11 Shyla Cswitch Comment on above: plates and screws (then removed) right ankle surgery 11 Evan [employer] Comment on above: plates and screws (then removed) shoulder surgery 11 Shyla GOULD Cue Comment on above: bilaterally shoulder surgery 12 Shyla [employer]OULD [employer] Comment on above: bilaterally shoulder surgery 12, 13 Ricardo fairbanks [employer] Comment on above: bilaterally left twice right onc e tubes tied Shyla Cswitch Plan of Treatment Date Care Activity Detail Author Start: 12-22-2030 DTaP/Tdap/Td vaccine (2 - Td or Tdap) DTaP/Tdap/Td vaccine (2 - Td or Tdap) [facility] Start: 03-20-2024 Lipid screen [facility] [place] Start: 11-03-2023 End: 11-03-2023 Patient encounter procedure 11/03/2023 Office Visit Cardiology Pankaj Floyd MD [address] [place] [address] [facility] Air Traffic Instructor Start: 10-28-2023 Lipid panel [facility]ids [facility] Start: 02-23-2023 Lipid panel [facility] Start: 02-02-2023 End: 02-02-2023 Patient encounter procedure 02/02/2023 Appointment Physical Therapy Mary Mae, ELIGIBILITY WORKER [facility] Start: 01-31-2023 End: 01-31-2023 Patient encounter procedure 01/31/2023 Appointment Physical Therapy Ashley Brower, PT [facility] Start: 01-26-2023 End: 01-26-2023 Patient encounter procedure 01/26/2023 Appointment Physical Therapy Ashley Brower, PT [facility] Start: 01-18-2023 End: 01-18-2023 Patient encounter procedure 01/18/2023 Appointment Physical Therapy Ashley Brower, PT [facility] Start: 11-02-2022 End: 11-02-2022 Patient encounter procedure 11/02/2022 Office Visit Cardiology Pankaj Floyd MD [address] [place] [address] [facility] [employer] Start: 04-16-2022 End: 04-16-2022 Patient encounter procedure 04/16/2022 Procedure visit Cardiology [facility] Air Traffic Instructor Start: 04-14-2022 End: 04-14-2022 Patient encounter procedure 04/14/2022 Appointment [facility] Start: 04-01-2022 Influenza vaccination Flu vaccine (#1) [facility] Start: 03-29-2022 End: 03-29-2022 Patient encounter procedure 03/29/2022 Office Visit Cardiology Pankaj Floyd MD [address] [place] [address] [facility] Air Traffic In[employer] Start: 03-02-2022 End: 03-02-2022 Patient encounter procedure [facility] Nuclear Medicine Start: 03-01-2022 Influenza vaccination Flu vaccine (#1) [facility] Start: 02-25-2022 End: 02-25-2022 Patient encounter procedure 02/25/2022 Office Visit Cardiology Pankaj Floyd MD [address] [place] [address] [facility] Air Traffic Instructor Start: 01-14-2022 COVID-19 Vaccine (5 - Booster for Moderna series) COVID-19 Vaccine (5 - Booster for Moderna series) [facility] Start: 11-27-2021 Creatinine measurement Creatinine monitoring [facility] Start: 11-27-2021 Potassium monitoring Potassium monitoring [facility] Start: 09-28-2021 Hemoglobin A1c measurement A1C test (Diabetic or Prediabetic) [facility] Start: 09-23-2021 Creatinine measurement Creatinine monitoring [facility] 911 Phone: Start: 09-23-2021 Potassium monitoring Potassium monitoring [facility] 911 Phone: Start: 09-03-2021 Creatinine measurement Creatinine monitoring [facility], [place] Start: 09-03-2021 Hemoglobin A1c measurement A1C test (Diabetic or Prediabetic) [facility] Start: 09-03-2021 Lipid panel Lipid screen [facility] Start: 09-03-2021 Potassium monitoring Potassium monitoring [place] Start: 04-02-2021 COVID-19 Vaccine (3 - Booster for Moderna series) COVID-19 Vaccine (3 - Booster for Moderna series) [facility] Start: 03-25-2021 Creatinine measurement Creatinine monitoring [facility], [place] Start: 03-02-2021 End: 03-02-2021 Patient encounter procedure 03/02/2021 Office Visit Cardiology Pankaj Floyd MD [address] [place] [address] [facility] Air Traffic Instructor Start: 12-26-2020 Hemoglobin A1c measurement A1C test (Diabetic or Prediabetic) [facility] Start: 12-01-2020 HbA1c (Bld) [Mass fraction] A1C test (Diabetic or Prediabetic) [facility] [place] Start: 12-01-2020 Hemoglobin A1c measurement A1C test (Diabetic or Prediabetic) [facility] 911 Phone: Start: 10-23-2020 End: 10-23-2020 Office Visit 10/23/2020 Office Visit Cardiology Pankaj Floyd MD [address] [place] [address] [employer] Air Traffic Instructor Start: 09-23-2020 End: 09-23-2021 CBC CBC Lab Routine Anemia of unknown etiology Expected: 09/23/2020, Expires: 09/23/2021 [facility] 911 Phone: Comment on above: Expected: 09/23/2020, Expires: Start: 09-09-2020 End: 09-09-2020 Office Visit 09/09/2020 Office Visit Cardiology Pankaj Floyd MD [address] [place] [address] [facility] Air Traffic In[employer] Start: 08-10-2020 Creatinine measurement Creatinine monitoring [employer] [facility] Start: 08-10-2020 Creatinine monitoring Creatinine monitoring [facility] 911 Phone: Start: 08-10-2020 Lipid panel [facility] Start: 08-10-2020 Lipid screen Lipid screen [facility] 911 Phone: Start: 08-10-2020 Potassium monitoring Potassium monitoring [facility] 911 Phone: Start: 07-07-2020 End: 07-07-2020 Office Visit 07/07/2020 Office Visit Urology Carlos Eduardo Cruz MD [address] [facility], [address] [place] [address] [facility] Start: 04-10-2020 End: 04-10-2020 Office Visit 04/10/2020 Office Visit Urology Nicole Bo, BANANA ROOM CUTTER - ORCHID SUPERINTENDENT [address] [facility] [address] [place] [address] [facility] Start: 04-01-2020 Influenza vaccination Flu vaccine (#1) [facility] Start: 03-31-2020 End: 03-31-2020 Procedure visit 03/31/2020 Procedure visit Urology Carlos Eduardo Cruz MD [address] [place] [address], [address] [place] [address] [facility] Start: 03-20-2020 Creatinine monitoring Creatinine monitoring [facility] [place] , [place] Start: 03-20-2020 Lipid screen Lipid screen [facility] [place], [place] Start: 03-20-2020 Potassium monitoring Potassium monitoring [facility] [place], [place] Start: 03-20-2020 End: 03-20-2020 Virtual Visit 03/20/2020 Virtual Visit Urology Nicole Bo, BANANA ROOM CUTTER - ORCHID SUPERINTENDENT [address] [place] [phone] [facility] Start: 03-04-2020 End: 03-04-2020 Office Visit 03/04/2020 Office Visit Cardiology Pankaj Floyd MD [address] [place] [address] [facility] Air Traffic In[employer] Start: 02-15-2020 End: 02-15-2020 Office Visit 02/15/2020 Office Visit Cardiology Pankaj Floyd MD [address] [place] [address] [facility] Air Traffic Instructor Start: 09-28-2019 End: 09-28-2019 Appointment 09/28/2019 Appointment Cardiac Rehabilitation [facility] Start: 09-26-2019 End: 09-26-2019 Appointment 09/26/2019 Appointment [facility] Start: 09-24-2019 End: 09-24-2019 Appointment 09/24/2019 Appointment [facility] Start: 09-21-2019 End: 09-21-2019 Appointment 09/21/2019 Appointment Cardiac Rehabilitation [facility] Start: 09-19-2019 End: 09-19-2019 Appointment 09/19/2019 Appointment Cardiac Rehabilitation [facility] Start: 09-17-2019 End: 09-17-2019 Appointment 09/17/2019 Appointment Cardiac Rehabilitation [facility] Start: 09-14-2019 End: 09-14-2019 Appointment 09/14/2019 Appointment Cardiac Rehabilitation [facility] Start: 09-12-2019 End: 09-12-2019 Appointment 09/12/2019 Appointment Cardiac Rehabilitation [facility] Start: 09-10-2019 End: 09-10-2019 Appointment 09/10/2019 Appointment [facility] Start: 09-07-2019 End: 09-07-2019 Appointment 09/07/2019 Appointment [facility] Start: 09-05-2019 End: 09-05-2019 Appointment 09/05/2019 Appointment [facility] Start: 09-03-2019 End: 09-03-2019 Patient encounter procedure 09/03/2019 Appointment [facility] Start: 08-31-2019 End: 08-31-2019 Patient encounter procedure 08/31/2019 Appointment [facility] Start: 08-29-2019 End: 08-29-2019 Patient encounter procedure 08/29/2019 Appointment [facility] Start: 08-27-2019 End: 08-27-2019 Patient encounter procedure 08/27/2019 Appointment [facility] Start: 08-24-2019 End: 08-24-2019 Patient encounter procedure 08/24/2019 Appointment Cardiac Rehabilitation [facility] Start: 08-22-2019 End: 08-22-2019 Patient encounter procedure 08/22/2019 Appointment Cardiac Rehabilitation [facility] Start: 08-20-2019 End: 08-20-2019 Patient encounter procedure 08/20/2019 Appointment Cardiac Rehabilitation [facility] Start: 08-17-2019 End: 08-17-2019 Patient encounter procedure 08/17/2019 Appointment Cardiac Rehabilitation [facility] Start: 08-16-2019 End: 08-16-2019 Office Visit 08/16/2019 Office Visit Cardiology Pankaj Floyd MD [address] [place], [place] [id number] [facility] Air Traffic In[employer] Start: 08-15-2019 End: 08-15-2019 Patient encounter procedure 08/15/2019 Appointment Cardiac Rehabilitation [facility] Start: 08-13-2019 End: 08-13-2019 Patient encounter procedure 08/13/2019 Appointment Cardiac Rehabilitation [facility] Start: 08-10-2019 End: 08-10-2019 Patient encounter procedure 08/10/2019 Appointment Cardiac Rehabilitation [facility] Start: 08-08-2019 End: 08-08-2019 Patient encounter procedure 08/08/2019 Appointment Cardiac Rehabilitation [facility] Start: 08-06-2019 End: 08-06-2019 Patient encounter procedure 08/06/2019 Appointment [facility] Start: 08-03-2019 End: 08-03-2019 Patient encounter procedure [facility] Start: 07-30-2019 End: 07-30-2019 Appointment 07/30/2019 Appointment Card[facility] Start: 07-27-2019 End: 07-27-2019 Appointment 07/27/2019 Appointment Cardiac [facility] Start: 07-23-2019 End: 07-23-2019 Appointment 07/23/2019 Appointment Cardiac [facility] Start: 07-20-2019 End: 07-20-2019 Appointment 07/20/2019 Appointment Cardiac Rehabilitation [facility] Start: 07-18-2019 End: 07-18-2019 Appointment 07/18/2019 Appointment [facility] Start: 07-17-2019 End: 07-17-2019 Office Visit 07/17/2019 Office Visit Urology Nicole Bo, BANANA ROOM CUTTER - ORCHID SUPERINTENDENT [address] [facility] [address] [phone] [facility] Start: 07-16-2019 End: 07-16-2019 Appointment 07/16/2019 Appointment Cardiac Rehabilitation [facility] Start: 07-13-2019 End: 07-13-2019 Appointment 07/13/2019 Appointment Card[facility] Start: 07-11-2019 End: 07-11-2019 Appointment 07/11/2019 Appointment Card[facility] Start: 07-09-2019 End: 07-09-2019 Appointment 07/09/2019 Appointment Card[facility] Start: 07-06-2019 End: 07-06-2019 Appointment 07/06/2019 Appointment Card[facility] Start: 06-29-2019 End: 06-29-2019 Appointment 06/29/2019 Appointment Cardiac [facility] Start: 06-27-2019 End: 06-27-2019 Appointment 06/27/2019 Appointment Cardiac [facility] Start: 06-25-2019 End: 06-25-2019 Appointment 06/25/2019 Appointment Card[facility] Start: 06-22-2019 End: 06-22-2019 Appointment 06/22/2019 Appointment Card[facility] Start: 06-20-2019 End: 06-20-2019 Appointment 06/20/2019 Appointment Cardiac Rehabilitation [facility] Start: 06-18-2019 End: 06-18-2019 Appointment 06/18/2019 Appointment [facility] Start: 06-15-2019 End: 06-15-2019 Appointment 06/15/2019 Appointment [facility] Start: 06-13-2019 End: 06-13-2019 Appointment 06/13/2019 Appointment Cardiac Rehabilitation [facility] Start: 06-11-2019 End: 06-11-2019 Appointment 06/11/2019 Appointment Cardiac Rehabilitation [facility] Start: 06-08-2019 End: 06-08-2019 Appointment 06/08/2019 Appointment Cardiac Rehabilitation [facility] Start: 06-06-2019 End: 06-06-2019 Appointment 06/06/2019 Appointment Cardiac Rehabilitation [facility] Start: 06-04-2019 End: 06-04-2019 Appointment 06/04/2019 Appointment Cardiac Rehabilitation [facility] Start: 06-01-2019 End: 06-01-2019 Appointment 06/01/2019 Appointment Cardiac Rehabilitation [facility] Start: 05-30-2019 End: 05-30-2019 Appointment 05/30/2019 Appointment Cardiac Rehabilitation [facility] Start: 05-28-2019 End: 05-28-2019 Appointment 05/28/2019 Appointment Cardiac Rehabilitation [facility] Start: 05-25-2019 End: 05-25-2019 Appointment 05/25/2019 Appointment Cardiac Rehabilitation [facility] Start: 05-23-2019 End: 05-23-2019 Appointment 05/23/2019 Appointment Cardiac Rehabilitation [facility] Start: 05-21-2019 End: 05-21-2019 Appointment 05/21/2019 Appointment Cardiac Rehabilitation [facility] Start: 05-18-2019 End: 05-18-2019 Appointment 05/18/2019 Appointment Cardiac Rehabilitation [facility] Start: 05-16-2019 End: 05-16-2019 Appointment 05/16/2019 Appointment Cardiac Rehabilitation [facility] Start: 05-14-2019 End: 05-14-2019 Appointment 05/14/2019 Appointment Cardiac Rehabilitation [facility] Start: 05-11-2019 End: 05-11-2019 Appointment 05/11/2019 Appointment Cardiac Rehabilitation [facility] Start: 05-09-2019 End: 05-09-2019 Appointment 05/09/2019 Appointment Cardiac Rehabilitation [facility] Start: 05-07-2019 End: 05-07-2019 Appointment 05/07/2019 Appointment Cardiac Rehabilitation [facility] Start: 05-04-2019 End: 05-04-2019 Appointment 05/04/2019 Appointment Cardiac Rehabilitation [facility] Start: 05-02-2019 End: 05-02-2019 Appointment 05/02/2019 Appointment Cardiac Rehabilitation [facility] Start: 04-30-2019 End: 04-30-2019 Appointment 04/30/2019 Appointment Cardiac Rehabilitation [facility] Start: 04-27-2019 End: 04-27-2019 Appointment 04/27/2019 Appointment Cardiac Rehabilitation [facility] Start: 04-25-2019 End: 04-25-2019 Appointment 04/25/2019 Appointment Cardiac Rehabilitation [facility] Start: 04-23-2019 End: 04-23-2019 Appointment 04/23/2019 Appointment Cardiac Rehabilitation [facility] Start: 04-20-2019 End: 04-20-2019 Appointment [facility] Medication Manangement Start: 04-19-2019 End: 04-19-2019 Hospital Encounter [facility] PFT Start: 04-18-2019 End: 04-18-2019 Appointment 04/18/2019 Appointment Cardiac Rehabilitation [facility] Start: 04-12-2019 End: 04-12-2019 Office Visit 04/12/2019 Office Visit Cardiology Pankaj Floyd MD [address] [place] [address] [facility] 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 Medication Manangement Start: 01-18-2019 Annual Wellness Visit (AWV) Annual Wellness Visit (AWV) [facility] Start: 02-19-2012 DEXA (modify frequency per FRAX score) DEXA (modify frequency per FRAX score) [place] [address] Start: 09-09-2011 Shingles Vaccine (2 of 3) Shingles Vaccine (2 of 3) Anabel valdez Start: 2010 Annual Wellness Visit (AWV) Annual Wellness Visit (AWV) [place] [address] Start: 2002 Screening for osteoporosis DEXA (modify frequency per FRAX score) [facility] Start: 1997 Breast cancer screen Breast cancer screen [address], [place] Start: 1997 Colon cancer screen colonoscopy Colon cancer screen colonoscopy [address], [place] Start: 1997 Screening for malignant neoplasm of breast Breast cancer screen [facility] Start: 1997 Screening for malignant neoplasm of colon Colon cancer screen colonoscopy [address], [place] Start: 02-19-1992 Screening for malignant neoplasm of colon [facility] Start: 1966 DTaP/Tdap/Td vaccine (1 - Tdap) DTaP/Tdap/Td vaccine (1 - Tdap) [place] [address] Start: 1965 Diabetic microalbuminuria test Diabetic microalbuminuria test [address] Start: 1965 Diabetic retinal exam Diabetic retinal exam [facility] Start: 1965 Hepatitis C screening Hepatitis C screen [facility] Start: 1965 Urine screening for protein Diabetic microalbuminuria test [facility] Start: 1963 COVID-19 Vaccine (1 of 2) COVID-19 [facility]ine ([facility] 2) [facility] [place] [place] Start: 1959 Depression Screen Depression Screen [facility] Start: 1958 DTaP/Tdap/Td vaccine (1 - Tdap) DTaP/Tdap/Td vaccine (1 - Tdap) [place] [address] Start: 1957 Diabetic foot examination Diabetic foot exam [facility] Start: 1957 Diabetic retinal exam Diabetic retinal exam [place], [place] Start: 1947 Annual Wellness Visit (AWV) Annual Wellness Visit (AWV) [facility] Start: 1947 Hepatitis C screen Hepatitis C screen [address], [place] Start: 1947 Hepatitis C screening Hepatitis C screen [facility] End: 08-16-2019 FAUSTINO profile FAUSTINO profile Lab Routine Uveitis Atrial fibrillation, unspecified type (HCC) Hypertension, unspecified type 1 Occurrences starting 08/16/2019 until 08/16/2019 [facility] 911 Phone: Comment on above: 1 Occurrences starting 08/16/2019 until 08/16/2019 FAUSTINO profile FAUSTINO profile Lab Routine Uveitis Atrial fibrillation, unspecified type (HCC) Hypertension, unspecified type 08/16/2019 11:55 AM EST [facility] 911 Phone: Cardiac catheterization Cardiac Catheterization Cardiac Cath Routine 03/07/2019 10:45 AM EDT [facility] End: 03-02-2022 Cardiac Stress Test- W Pharm Cardiac Stress Test- W Pharm Cardiac Services Routine One Time for 1 Occurrences starting 03/02/2022 until 03/02/2022 ASHISH [employer] Phone: Comment on above: One Time for 1 Occurrences starting 09/2021 until 03/02/2022 End: 07-14-2021 COVID-19 [facility] 911 Phone: Comment on above: Once for 1 Occurrences starting 07/14/20 21 until 07/14/2021 End: 02-28-2020 Culture, Urine Culture, Urine Microbiology Routine Nocturia Urge incontinence 1 Occurrences starting 02/28/2020 until 02/28/2020 [employer], [place] Comment on above: 1 Occurrences starting 02/28/2020 until 02/28/2020 Culture, Urine [employer] End: 07-07-2020 Culture, Urine Culture, Urine Microbiology Routine Urge incontinence Pelvic pain 1 Occurrences starting 07/07/2020 until 07/07/2020 [employer] Comment on above: 1 Occurrences starting 07/07/2020 until 07/07/2020 End: 03-02-2022 ECHO Complete 2D W Doppler W Color ECHO Complete 2D W Doppler W Color Echocardiography Routine Atrial fibrillation, unspecified type (HCC) SOB (shortness of breath) 1 Occurrences starting 03/02/2022 until 03/02/2022 ASHISH [employer] Phone: Comment on above: 1 Occurrences starting 03/02/2022 until 03/02/2022 EKG 12 Lead [facility] [place] EKG 12 Lead EKG 12 Lead ECG Routine SOB (shortness of breath) Atrial fibrillation, unspecified type (HCC) Other fatigue Hyperlipidemia, unspecified hyperlipidemia type 02/23/2022 10:13 AM EDT [employer] Phone: EKG 12 Lead EKG 12 Lead ECG Routine Atrial fibrillation, unspecified type (HCC) Hyperlipidemia, unspecified hyperlipidemia type Pre-op testing 04/01/2022 1:13 PM EDT [employer] Phone: EKG 12 Lead EKG 12 Lead ECG Routine Atrial fibrillation, unspecified type (HCC) 10/27/2022 9:34 AM EDT [employer] Phone: Electrophoresis Prot ein, Serum without Reflex to Immunofixation Electrophoresis Protein, Serum without Reflex to Immunofixation Lab Routine Uveitis Atrial fibrillation, unspecified type (HCC) Hypertension, unspecified type 08/16/2019 11:55 AM [employer] Phone: End: 04-19-2019 Full PFT Study With Bronchodilator Full PFT Study With Bronchodilator PFT Routine SOB (shortness of breath) 1 Occurrences starting 04/19/2019 until 04/19/2019 [facility] [place] Comment on above: 1 Occurrences starting 04/19/2019 until 04/19/2019 End: 08-16-2019 Immunofixation Serum Profile Immunofixation Serum Profile Lab Routine Uveitis Atrial fibrillation, unspecified type (HCC) Hypertension, unspecified type 1 Occurrences starting 08/16/2019 until 08/16/2019 [facility] 911 Phone: Comment on above: 1 Occurrences starting 08/16/2019 until 08/16/2019 Immunofixation Serum Profile Immunofixation Serum Profile Lab Routine Uveitis Atrial fibrillation, unspecified type (HCC) Hypertension, unspecified type 08/16/2019 11:55 AM [employer] Phone: Immunofixation Urine Random Profile Immunofixation Urine Random Profile Lab Routine Uveitis Atrial fibrillation, unspecified type (HCC) Hypertension, unspecified type 08/16/2019 11:54 AM [employer] Phone: End: 09-01-2022 Lipid panel [employer] Phone: Comment on above: 1 Occurrences starting 04/01/2022 until 04/01/2022 Protein Electrophore sis, Urine Protein Electrophoresis, Urine Lab Routine 08/16/2019 11:54 AM EST [facility] Phone: End: 08-16-2019 UA without Microscopic, Reflex C&S UA without Microscopic, Reflex C&S Lab Routine Uveitis Atrial fibrillation, unspecified type (HCC) Hypertension, unspecified type 1 Occurrences starting 08/16/2019 until 08/16/2019 [facility] 911 Phone: Comment on above: 1 Occurrences starting 08/16/2019 until 08/16/2019 End: 02-23-2022 Vitamin D 25 Hydroxy [employer] Phone: Comment on above: 1 Occurrences starting 02/23/2022 until 02/23/2022 Immunizations Immunization Date Immunization Notes Care Provider Kamran collado 06-30-2023 influenza virus vaccine, unspecified formulation Active DSP [facility] 05-20-2022 influenza virus vaccine, unspecified formulation [facility] 05-20-2022 SARS-CoV-2 (COVID-19 ) [id number] Evan foc.us [facility] 11-19-2021 SARS-CoV-2 (COVID-19 ) mRNA-[id number] vaccine Active DSP [facility] [employer] 06-12-2021 SARS-CoV-2 (COVID-19 ) mRNA-[id number] vaccine Active DSP [facility] [employer] 04-10-2021 influenza, high dose seasonal, preservative-free Active DSP [facility] 12-22-2020 tetanus toxoid, redu andrew diphtheria toxoid, and acellular pertussis vaccine, adsorbed; Translations: [Adacel (Tdap)] Shyla Cswitch [facility] 09-30-2020 SARS-CoV-2 (COVID-19 ) mRNA-1273 vaccine Shyla Cswitch [facility] 09-03-2020 SARS-CoV-2 (COVID-19 ) mRNA-1273 vaccine Shyla Cswitch [facility] 05-02-2020 influenza, high dose seasonal, preservative-free Shyla Cswitch [facility] 05-18-2018 influenza virus vaccine, unspecified formulation [employer] [facility] 05-18-2018 influenza, high dose seasonal, preservative-free [facility], [place] 04-18-2017 Influenza Vaccine, unspecified formulation [facility] , [place] 06-14-2016 influenza, high dose seasonal, preservative-free [facility], [place] 06-11-2015 pneumococcal conjuga te vaccine, 13 valent [facility] 05-22-2015 influenza, high dose seasonal, preservative-free [facility], [place] 05-24-2014 Influenza Vaccine, unspecified formulation [facility] , [place] 05-14-2013 Influenza Vaccine, unspecified formulation [facility] , [place] 05-03-2012 Influenza Vaccine, unspecified formulation [facility] , [place] 05-03-2012 pneumococcal polysaccharide vaccine, 23 valent [facility], [place] 07-15-2011 zoster vaccine recombinant Shyla PRUETT [facility] [place] 07-15-2011 zoster vaccine, live Shyla Pruett [facility], [place] 06-11-2009 Influenza Vaccine, unspecified formulation Shyla Pruett [facility] , [place] 05-16-2002 pneumococcal polysaccharide vaccine, 23 valent Shyla PRUETT [facility] [place] NEGATED: Highlighted row has not occurred!04-28-2023 zoster vaccine, live Shyla PRUETT [facility] [place] NEGATED: Highlighted row has not occurred!04-28-2023 influenza virus vaccine, unspecified formulation Shyla PRUETT [facility] [place] NEGATED: Highlighted row has not occurred!04-19-2023 influenza virus vaccine, unspecified formulation [employer]ар[employer] [facility] [place] Payers Date Payer Category Payer Medicare xxxxxxxxx 1.2.8 [id number] 2015 Medicare [id number] 1.2.8 [id number] 1959 Medicare [id number] 1.2.8 [id number] 1947 Unknown [id number] 2.16.8 40.1.784766.3.579.2.173 1947 Unknown [id number] 2.16.8 40.1.693456.3.579.2.173 1947 Unknown [id number] 2.16.8 40.1.249326.3.579.2.647 1947 Unknown [id number] 2.16.8 40.1.004652.3.579.2.647 1947 Unknown [id number] 2.16.8 40.1.781573.3.579.2.647 1947 Unknown [id number] 2.16.8 40.1.654482.3.579.2.647 1947 Unknown [id number] 2.16. 840.1.453555.3.579.2.903 1947 Unknown [id number] 2.16.84 0.1.933762.3.579.2.593 1947 Unknown [id number] 2.16.84 0.1.659720.3.579.2.593 1947 Unknown [id number] 2.16.84 0.1.063080.3.579.2.593 1947 Unknown [id number] 2.16.84 0.1.817751.3.579.2.593 1947 Unknown [id number] 2.16.84 0.1.026709.3.579.2.593 1947 Unknown [id number] 2.16.84 0.1.045991.3.579.2.593 1947 Unknown [id number] 2.16.84 0.1.304289.3.579.2.593 1947 Unknown [id number] 2.16.84 0.1.433617.3.579.2.593 1947 Unknown [id number] 2.16.84 0.1.599594.3.579.2.593 1947 Unknown [id number] 2.16.84 0.1.838398.3.579.2.593 1947 Unknown [id number] 2.16.84 0.1.162243.3.579.2.593 1947 Unknown [id number] 2.16.84 0.1.020909.3.579.2.593 1947 Unknown [id number] 2.16.84 0.1.475371.3.579.2.593 1947 Unknown [id number] 2.16.84 0.1.702224.3.579.2.593 1947 Unknown [id number] 2.16.84 0.1.581021.3.579.2.593 1947 Unknown [id number] 2.16.84 0.1.724326.3.579.2.593 1947 Unknown [id number] 2.16.84 0.1.804202.3.579.2.593 1947 Unknown [id number] 2.16.84 0.1.116343.3.579.2.593 1947 Unknown [id number] 2.16.84 0.1.161010.3.579.2.593 1947 Unknown [id number] 2.16. 840.1.899033.3.579.2.356 1947 Unknown [id number] 2.16.8 40.1.806536.3.579.2.174 1947 Unknown [id number] 2.16.8 40.1.979523.3.579.2.174 1947 Unknown [id number] 2.16.8 40.1.286627.3.579.2.174 1947 Unknown [id number] 2.16.8 40.1.298502.3.579.2.174 1947 Unknown [id number] 2.16.8 40.1.684541.3.579.2.174 1947 Unknown [id number] 2.16.8 40.1.067678.3.579.2.174 1947 Unknown [id number] 2.16.8 40.1.443985.3.579.2.174 1947 Unknown [id number] 2.16.8 40.1.293465.3.579.2.174 1947 Unknown [id number] 2.16.8 40.1.005892.3.579.2.174 1947 Unknown [id number] 2.16.8 40.1.927932.3.579.2.174 1947 Unknown [id number] 2.16.8 40.1.989014.3.579.2.174 1947 Unknown [id number] 2.16.8 40.1.230553.3.579.2.174 1947 Unknown [id number] 2.16.8 40.1.760964.3.579.2.174 1947 Unknown [id number] 2.16.8 40.1.023384.3.579.2.174 1947 Unknown [id number] 2.16.8 40.1.666542.3.579.2.174 1947 Unknown [id number] 2.16.8 40.1.280310.3.579.2.174 1947 Unknown [id number] 2.16.8 40.1.607086.3.579.2.174 1947 Unknown [id number] 2.16.8 40.1.883862.3.579.2.174 1947 Unknown [id number] 2.16.8 40.1.204518.3.579.2.174 1947 Unknown [id number] 2.16.8 40.1.552783.3.579.2.174 1947 Unknown [id number] 2.16.8 40.1.434986.3.579.2.727 1947 Unknown [id number] 2.16.8 40.1.436575.3.579.2.727 1947 Unknown [id number] 2.16.8 40.1.466295.3.579.2.727 1947 Unknown [id number] 2.16.8 40.1.506977.3.579.2.72 1947 Unknown [id number] 2.16.8 40.1.103663.3.579.2.727 1947 Unknown [id number] 2.16.8 40.1.408083.3.579.2. 1947 Unknown [id number] 2.16.8 40.1.274025.3.579.2.72 1947 Unknown [id number] 2.16.8 40.1.355690.3.579.2. 1947 Unknown [id number] 2.16.8 40.1.053197.3.579.2. 1947 Unknown [id number] 2.16.8 40.1.737667.3.579.2. 1947 Unknown [id number] 2.16.8 40.1.212600.3.579.2. 1947 Unknown [id number] 2.16.8 40.1.420145.3.579.2. 1947 Unknown [id number] 2.16.8 40.1.856726.3.579.2.72 1947 Unknown [id number] 2.16.8 40.1.467273.3.579.2.72 1947 Unknown [id number] 2.16.8 40.1.189860.3.579.2.72 1947 Unknown [id number] 2.16.8 40.1.456519.3.579.2. 1947 Unknown [id number] 2.16.8 40.1.874088.3.579.2.72 1947 Unknown [id number] 2.16.8 40.1.894233.3.579.2.727 1947 Unknown [id number] 2.16.8 40.1.500550.3.579.2.727 1947 Unknown [id number] 2.16.8 40.1.980932.3.579.2.727 1947 Unknown [id number] 2.16.8 40.1.189304.3.579.2.727 1947 Unknown [id number] 2.16.8 40.1.966562.3.579.2.727 Social History Date Type Detail Facility Start: 03-07-2019 End: 07-29-2023 Tobacco smoking status NHIS Never smoker [facility] Comment on above: denies Denies use. Start: 1945 Sex Assigned At Not on file [facility] Start: 03-08-2019 End: 04-17-[facility] Start: 07-11-2018 Alcohol Comment occ [place] Start: 04-17-2019 End: 11-05-2022 Alcohol intake Current drinker of alcohol (finding) [facility] [employer] [place] Start: 02-28-2020 End: 02-25-2022 Tobacco use and exposure Never used [employer] [place] Start: 10-26-2022 End: 11-05-2022 Exposure to SARS-CoV-2 (event) Not sure [facility] [employer] Work Phone: Tobacco smoking status Never [facility] [place] Comment on above: denies Denies use. Start: 11-05-2022 History SDOH Alcohol Frequency 1 [facility] [employer] Work Phone: Medical Equipment Procedure Code Equipment Code Equipment Origin al Text Equipment Identifier Dates Closure Sergey kaur - [id number], [id number]_[facility] FDA Start: 03-07-2019 glucometer test strip, See Instructions, 360 strip(s), 3, test QID, [facility], Supply, 162.56, cm, 08/02/19 11:04:00 EST, Height/Length Measured, 99.7, kg, 09/06/19 15:16:00 EST, Weight Measured Start: 12-06-2019 lancets, See Instructions, 360 lancet(s), 3, test QID, [facility] Supply, 162.56, cm, 08/02/19 11:04:00 EST, Height/Length Measured, 99.7, kg, 09/06/19 15:16:00 EST, Weight Measured Start: 12-06-2019 pen needles, See Instructions, 100 EA, 3, 31G, 3/16 , 5mm. use daily with insulin, [facility], Supply, 162.6, cm, 05/01/21 13:54:00 EDT, Height/Length Dosing, 109.7, kg, 05/01/21 13:54:00 EDT, Weight Dosing Start: 05-27-2021 glucometer test strip, See Instructions, 360 strip(s), 3, test QID, [facility], Supply, 162.56, cm, 08/02/19 11:04:00 EST, Height/Length Measured, 99.7, kg, 09/06/19 15:16:00 EST, Weight Measured Start: 12-06-2019 lancets, See Instructions, 360 lancet(s), 3, test QID, [facility], Supply, 162.56, cm, 08/02/19 11:04:00 EST, Height/Length Measured, 99.7, kg, 09/06/19 15:16:00 EST, Weight Measured Start: 12-06-2019 pen needles, See Instructions, 100 EA, 3, 31G, 3/16 , 5mm. use daily with insulin, [facility], Supply, 162.6, cm, 05/01/21 13:54:00 EDT, Height/Length Dosing, 109.7, kg, 05/01/21 13:54:00 EDT, Weight Dosing Start: 05-27-2021 glucometer test strip, See Instructions, 360 strip(s), 3, test QID, [facility] Supply, 162.56, cm, 08/02/19 11:04:00 EST, Height/Length Measured, 99.7, kg, 09/06/19 15:16:00 EST, Weight Measured Start: 12-06-2019 lancets, See Instructions, 360 lancet(s), 3, test QID, [facility] Supply, 162.56, cm, 08/02/19 11:04:00 EST, Height/Length Measured, 99.7, kg, 09/06/19 15:16:00 EST, Weight Measured Start: 12-06-2019 pen needles, See Instructions, 100 EA, 3, 31G, 3/16 , 5mm. use daily with insulin, [facility], Supply, 162.6, cm, 05/01/21 13:54:00 EDT, Height/Length Dosing, 109.7, kg, 05/01/21 13:54:00 EDT, Weight Dosing Start: 05-27-2021 glucometer test strip, See Instructions, 360 strip(s), 3, test QID, [facility], Supply, 162.56, cm, 08/02/19 11:04:00 EST, Height/Length Measured, 99.7, kg, 09/06/19 15:16:00 EST, Weight Measured Start: 12-06-2019 lancets, See Instructions, 360 lancet(s), 3, test QID, [facility], Supply, 162.56, cm, 08/02/19 11:04:00 EST, Height/Length Measured, 99.7, kg, 09/06/19 15:16:00 EST, Weight Measured Start: 12-06-2019 pen needles, See Instructions, 100 EA, 3, 31G, 3/16 , 5mm. use daily with insulin, [facility], Supply, 162.6, cm, 05/01/21 13:54:00 EDT, Height/Length Dosing, 109.7, kg, 05/01/21 13:54:00 EDT, Weight Dosing Start: 05-27-2021 glucometer test strip, See Instructions, 360 strip(s), 3, test QID, [facility] Supply, 160, cm, 01/21/22 13:23:00 EDT, Height/Length Dosing, 116.6, kg, 01/21/22 13:23:00 EDT, Weight Dosing Start: 04-26-2022 pen needles, See Instructions, 100 EA, 3, 31G, 3/16 , 5mm. use daily with insulin, [facility], Supply, 162.6, cm, 05/01/21 13:54:00 EDT, Height/Length Dosing, 109.7, kg, 05/01/21 13:54:00 EDT, Weight Dosing Start: 05-27-2021 SHOULDER TOTAL ARTHROPLASTY Brown DO, Evan A 10/06/22 Unknown Shoulder L FDA Start: 10-06-2022 SHOULDER TOTAL ARTHROPLASTY Brown DO, Evan A 10/06/22 Unknown Shoulder L FDA Start: 10-06-2022 SHOULDER TOTAL ARTHROPLASTY Brown DO, Evan A 10/06/22 Unknown Shoulder L FDA Start: 10-06-2022 SHOULDER TOTAL ARTHROPLASTY Brown DO, Evan A 10/06/22 Unknown Shoulder L FDA Start: 10-06-2022 SHOULDER TOTAL ARTHROPLASTY Brown DO, Evan A 10/06/22 Unknown Shoulder L FDA Start: 10-06-2022 SHOULDER TOTAL ARTHROPLASTY Brown DO, Evan A 10/06/22 Unknown Shoulder L FDA Start: 10-06-2022 SHOULDER TOTAL ARTHROPLASTY Brown DO, Evan A 10/06/22 Unknown Shoulder L FDA Start: 10-06-2022 SHOULDER TOTAL ARTHROPLASTY Brown DO, Evan A 10/06/22 Unknown Shoulder L FDA Start: 10-06-2022 SHOULDER TOTAL ARTHROPLASTY Brown DO, Evan A 10/06/22 Unknown Shoulder L FDA Start: 10-06-2022 glucometer test strip, See Instructions, 360 strip(s), 3, test QID, [facility] Supply, 160, cm, 01/21/22 13:23:00 EDT, Height/Length Dosing, 116.6, kg, 01/21/22 13:23:00 EDT, Weight Dosing Start: 04-26-2022 pen needles, See Instructions, 100 EA, 3, 31G, 3/16 , 5mm. use daily with insulin, [facility], Supply, 162.6, cm, 05/01/21 13:54:00 EDT, Height/Length Dosing, 109.7, kg, 05/01/21 13:54:00 EDT, Weight Dosing Start: 05-27-2021 SHOULDER TOTAL ARTHROPLASTY Flynn DO, Evan A 10/06/22 Unknown Shoulder L FDA Start: 10-06-2022 SHOULDER TOTAL ARTHROPLASTY Flynn DO, Evan A 10/06/22 Unknown Shoulder L FDA Start: 10-06-2022 SHOULDER TOTAL ARTHROPLASTY Brown DO, Evan A 10/06/22 Unknown Shoulder L FDA Start: 10-06-2022 SHOULDER TOTAL ARTHROPLASTY Brown DO, Evan A 10/06/22 Unknown Shoulder L FDA Start: 10-06-2022 SHOULDER TOTAL ARTHROPLASTY Brown DO, Evan A 10/06/22 Unknown Shoulder L FDA Start: 10-06-2022 SHOULDER TOTAL ARTHROPLASTY Brown DO, Evan A 10/06/22 Unknown Shoulder L FDA Start: 10-06-2022 SHOULDER TOTAL ARTHROPLASTY Brown DO, Evan A 10/06/22 Unknown Shoulder L FDA Start: 10-06-2022 SHOULDER TOTAL ARTHROPLASTY Flynn DO, Evan A 10/06/22 Unknown Shoulder L FDA Start: 10-06-2022 SHOULDER TOTAL ARTHROPLASTY Flynn DO, Evan A 10/06/22 Unknown Shoulder L FDA Start: 10-06-2022 glucometer test strip, See Instructions, 360 strip(s), 3, test QID, [facility] Supply, 160, cm, 01/21/22 13:23:00 EDT, Height/Length Dosing, 116.6, kg, 01/21/22 13:23:00 EDT, Weight Dosing Start: 04-26-2022 pen needles, See Instructions, 100 EA, 3, 31G, 3/16 , 5mm. use daily with insulin, [facility], Supply, 162.6, cm, 05/01/21 13:54:00 EDT, Height/Length Dosing, 109.7, kg, 05/01/21 13:54:00 EDT, Weight Dosing Start: 05-27-2021 SHOULDER TOTAL ARTHROPLASTY Flynn DO, Evan A 10/06/22 Unknown Shoulder L FDA Start: 10-06-2022 SHOULDER TOTAL ARTHROPLASTY Brown DO, Evan A 10/06/22 Unknown Shoulder L FDA Start: 10-06-2022 SHOULDER TOTAL ARTHROPLASTY Brown DO, Evan A 10/06/22 Unknown Shoulder L FDA Start: 10-06-2022 SHOULDER TOTAL ARTHROPLASTY Brown DO, Evan A 10/06/22 Unknown Shoulder L FDA Start: 10-06-2022 SHOULDER TOTAL ARTHROPLASTY Brown DO, Evan A 10/06/22 Unknown Shoulder L FDA Start: 10-06-2022 SHOULDER TOTAL ARTHROPLASTY Brown DO, Evan A 10/06/22 Unknown Shoulder L FDA Start: 10-06-2022 SHOULDER TOTAL ARTHROPLASTY Brown DO, Evan A 10/06/22 Unknown Shoulder L FDA Start: 10-06-2022 SHOULDER TOTAL ARTHROPLASTY Brown DO, Evan A 10/06/22 Unknown Shoulder L FDA Start: 10-06-2022 SHOULDER TOTAL ARTHROPLASTY Brown DO, Evan A 10/06/22 Unknown Shoulder L FDA Start: 10-06-2022 glucometer test strip, See Instructions, 360 strip(s), 3, test QID, [facility] Supply, 160, cm, 01/21/22 13:23:00 EDT, Height/Length Dosing, 116.6, kg, 01/21/22 13:23:00 EDT, Weight Dosing Start: 04-26-2022 pen needles, See Instructions, 100 EA, 3, 31G, 3/16 , 5mm. use daily with insulin, [facility], Supply, 162.6, cm, 05/01/21 13:54:00 EDT, Height/Length Dosing, 109.7, kg, 05/01/21 13:54:00 EDT, Weight Dosing Start: 05-27-2021 SHOULDER TOTAL ARTHROPLASTY Brown DO, Evan A 10/06/22 Unknown Shoulder L FDA Start: 10-06-2022 SHOULDER TOTAL ARTHROPLASTY Brown DO, Evan A 10/06/22 Unknown Shoulder L FDA Start: 10-06-2022 SHOULDER TOTAL ARTHROPLASTY Brown DO, Evan A 10/06/22 Unknown Shoulder L FDA Start: 10-06-2022 SHOULDER TOTAL ARTHROPLASTY Brown DO, Evan A 10/06/22 Unknown Shoulder L FDA Start: 10-06-2022 SHOULDER TOTAL ARTHROPLASTY Brown DO, Evan A 10/06/22 Unknown Shoulder L FDA Start: 10-06-2022 SHOULDER TOTAL ARTHROPLASTY Brown DO, Evan A 10/06/22 Unknown Shoulder L FDA Start: 10-06-2022 SHOULDER TOTAL ARTHROPLASTY Brown DO, Evan A 10/06/22 Unknown Shoulder L FDA Start: 10-06-2022 SHOULDER TOTAL ARTHROPLASTY Brown DO, Evan A 10/06/22 Unknown Shoulder L FDA Start: 10-06-2022 SHOULDER TOTAL ARTHROPLASTY Brown DO, Evan A 10/06/22 Unknown Shoulder L FDA Start: 10-06-2022 glucometer test strip, See Instructions, 360 strip(s), 3, test QID, [facility], Supply, 160, cm, 01/21/22 13:23:00 EDT, Height/Length Dosing, 116.6, kg, 01/21/22 13:23:00 EDT, Weight Dosing Start: 04-26-2022 pen needles, See Instructions, 100 EA, 3, 31G, 316 , 5mm. use daily with insulin, [facility], Supply, 162.6, cm, 05/01/21 13:54:00 EDT, Height/Length Dosing, 109.7, kg, 05/01/21 13:54:00 EDT, Weight Dosing Start: 05-27-2021 SHOULDER TOTAL ARTHROPLASTY Brown DO, Evan A 10/06/22 Unknown Shoulder L FDA Start: 10-06-2022 SHOULDER TOTAL ARTHROPLASTY Brown DO, Evan A 10/06/22 Unknown Shoulder L FDA Start: 10-06-2022 SHOULDER TOTAL ARTHROPLASTY Brown DO, Evan A 10/06/22 Unknown Shoulder L FDA Start: 10-06-2022 SHOULDER TOTAL ARTHROPLASTY Brown DO, Evan A 10/06/22 Unknown Shoulder L FDA Start: 10-06-2022 SHOULDER TOTAL ARTHROPLASTY Brown DO, Evan A 10/06/22 Unknown Shoulder L FDA Start: 10-06-2022 SHOULDER TOTAL ARTHROPLASTY Brown DO, Evan A 10/06/22 Unknown Shoulder L FDA Start: 10-06-2022 SHOULDER TOTAL ARTHROPLASTY Brown DO, Evan A 10/06/22 Unknown Shoulder L FDA Start: 10-06-2022 SHOULDER TOTAL ARTHROPLASTY Brown DO, Evan A 10/06/22 Unknown Shoulder L FDA Start: 10-06-2022 SHOULDER TOTAL ARTHROPLASTY Brown DO, Evan A 10/06/22 Unknown Shoulder L FDA Start: 10-06-2022 glucometer test strip, See Instructions, 360 strip(s), 3, test QID, [facility], Supply, 160, cm, 01/21/22 13:23:00 EDT, Height/Length Dosing, 116.6, kg, 01/21/22 13:23:00 EDT, Weight Dosing Start: 04-26-2022 pen needles, See Instructions, 100 EA, 3, 31G, 3/16 , 5mm. use daily with insulin, [facility], Supply, 162.6, cm, 05/01/21 13:54:00 EDT, Height/Length Dosing, 109.7, kg, 05/01/21 13:54:00 EDT, Weight Dosing Start: 05-27-2021 SHOULDER TOTAL ARTHROPLASTY Brown DO, Evan A 10/06/22 Unknown Shoulder L FDA Start: 10-06-2022 SHOULDER TOTAL ARTHROPLASTY Brown DO, Evan A 10/06/22 Unknown Shoulder L FDA Start: 10-06-2022 SHOULDER TOTAL ARTHROPLASTY Brown DO, Evan A 10/06/22 Unknown Shoulder L FDA Start: 10-06-2022 SHOULDER TOTAL ARTHROPLASTY Brown DO, Evan A 10/06/22 Unknown Shoulder L FDA Start: 10-06-2022 SHOULDER TOTAL ARTHROPLASTY Brown DO, Evan A 10/06/22 Unknown Shoulder L FDA Start: 10-06-2022 SHOULDER TOTAL ARTHROPLASTY Brown DO, Evan A 10/06/22 Unknown Shoulder L FDA Start: 10-06-2022 SHOULDER TOTAL ARTHROPLASTY Brown DO, Evan A 10/06/22 Unknown Shoulder L FDA Start: 10-06-2022 SHOULDER TOTAL ARTHROPLASTY Brown DO, Evan A 10/06/22 Unknown Shoulder L FDA Start: 10-06-2022 SHOULDER TOTAL ARTHROPLASTY Brown DO, Evan A 10/06/22 Unknown Shoulder L FDA Start: 10-06-2022 glucometer test strip, See Instructions, 360 strip(s), 3, test QID, [facility] Supply, 160, cm, 01/21/22 13:23:00 EDT, Height/Length Dosing, 116.6, kg, 01/21/22 13:23:00 EDT, Weight Dosing Start: 04-26-2022 pen needles, See Instructions, 100 EA, 3, 31G, 3/16 , 5mm. use daily with insulin, [facility], Supply, 162.6, cm, 05/01/21 13:54:00 EDT, Height/Length Dosing, 109.7, kg, 05/01/21 13:54:00 EDT, Weight Dosing Start: 05-27-2021 SHOULDER TOTAL ARTHROPLASTY Brown DO, Evan A 10/06/22 Unknown Shoulder L FDA Start: 10-06-2022 SHOULDER TOTAL ARTHROPLASTY Flynn DO, Evan A 10/06/22 Unknown Shoulder L FDA Start: 10-06-2022 SHOULDER TOTAL ARTHROPLASTY Brown DO, Evan A 10/06/22 Unknown Shoulder L FDA Start: 10-06-2022 SHOULDER TOTAL ARTHROPLASTY Flynn DO, Evan A 10/06/22 Unknown Shoulder L FDA Start: 10-06-2022 SHOULDER TOTAL ARTHROPLASTY Brown DO, Evan A 10/06/22 Unknown Shoulder L FDA Start: 10-06-2022 SHOULDER TOTAL ARTHROPLASTY Flynn DO, Evan A 10/06/22 Unknown Shoulder L FDA Start: 10-06-2022 SHOULDER TOTAL ARTHROPLASTY Flynn DO, Evan A 10/06/22 Unknown Shoulder L FDA Start: 10-06-2022 SHOULDER TOTAL ARTHROPLASTY Flynn DO, Evan A 10/06/22 Unknown Shoulder L FDA Start: 10-06-2022 SHOULDER TOTAL ARTHROPLASTY Flynn DO, Evan A 10/06/22 Unknown Shoulder L FDA Start: 10-06-2022 glucometer test strip, See Instructions, 360 strip(s), 3, test QID, [facility] Supply, 160, cm, 01/21/22 13:23:00 EDT, Height/Length Dosing, 116.6, kg, 01/21/22 13:23:00 EDT, Weight Dosing Start: 04-26-2022 pen needles, See Instructions, 100 EA, 3, 31G, 3/16 , 5mm. use daily with insulin, [facility], Supply, 162.6, cm, 05/01/21 13:54:00 EDT, Height/Length Dosing, 109.7, kg, 05/01/21 13:54:00 EDT, Weight Dosing Start: 05-27-2021 SHOULDER TOTAL ARTHROPLASTY Flynn DO, Evan A 10/06/22 Unknown Shoulder L FDA Start: 10-06-2022 SHOULDER TOTAL ARTHROPLASTY Flynn DO, Evan A 10/06/22 Unknown Shoulder L FDA Start: 10-06-2022 SHOULDER TOTAL ARTHROPLASTY Flynn DO, Evan A 10/06/22 Unknown Shoulder L FDA Start: 10-06-2022 SHOULDER TOTAL ARTHROPLASTY Flynn DO, Evan A 10/06/22 Unknown Shoulder L FDA Start: 10-06-2022 SHOULDER TOTAL ARTHROPLASTY Brown DO, Evan A 10/06/22 Unknown Shoulder L FDA Start: 10-06-2022 SHOULDER TOTAL ARTHROPLASTY Brown DO, Evan A 10/06/22 Unknown Shoulder L FDA Start: 10-06-2022 SHOULDER TOTAL ARTHROPLASTY Brown DO, Evan A 10/06/22 Unknown Shoulder L FDA Start: 10-06-2022 SHOULDER TOTAL ARTHROPLASTY Brown DO, Evan A 10/06/22 Unknown Shoulder L FDA Start: 10-06-2022 SHOULDER TOTAL ARTHROPLASTY Brown DO, Evan A 10/06/22 Unknown Shoulder L FDA Start: 10-06-2022 glucometer test strip, See Instructions, 360 strip(s), 3, test QID, [facility], Supply, 160, cm, 01/21/22 13:23:00 EDT, Height/Length Dosing, 116.6, kg, 01/21/22 13:23:00 EDT, Weight Dosing Start: 04-26-2022 pen needles, See Instructions, 100 EA, 3, 31G, 3/16 , 5mm. use daily with insulin, [facility], Supply, 162.6, cm, 05/01/21 13:54:00 EDT, Height/Length Dosing, 109.7, kg, 05/01/21 13:54:00 EDT, Weight Dosing Start: 05-27-2021 SHOULDER TOTAL ARTHROPLASTY Brown DO, Evan A 10/06/22 Unknown Shoulder L FDA Start: 10-06-2022 SHOULDER TOTAL ARTHROPLASTY Brown DO, Evan A 10/06/22 Unknown Shoulder L FDA Start: 10-06-2022 SHOULDER TOTAL ARTHROPLASTY Brown DO, Evan A 10/06/22 Unknown Shoulder L FDA Start: 10-06-2022 SHOULDER TOTAL ARTHROPLASTY Brown DO, Evan A 10/06/22 Unknown Shoulder L FDA Start: 10-06-2022 SHOULDER TOTAL ARTHROPLASTY Brown DO, Evan A 10/06/22 Unknown Shoulder L FDA Start: 10-06-2022 SHOULDER TOTAL ARTHROPLASTY Brown DO, Evan A 10/06/22 Unknown Shoulder L FDA Start: 10-06-2022 SHOULDER TOTAL ARTHROPLASTY Brown DO, Evan A 10/06/22 Unknown Shoulder L FDA Start: 10-06-2022 SHOULDER TOTAL ARTHROPLASTY Brown DO, Evan A 10/06/22 Unknown Shoulder L FDA Start: 10-06-2022 SHOULDER TOTAL ARTHROPLASTY Brown DO, Evan A 10/06/22 Unknown Shoulder L FDA Start: 10-06-2022 glucometer test strip, See Instructions, 360 strip(s), 3, test QID, [email or web address], Supply, 160, cm, 01/21/22 13:23:00 EDT, Height/Length Dosing, 116.6, kg, 01/21/22 13:23:00 EDT, Weight Dosing Start: 04-26-2022 pen needles, See Instructions, 100 EA, 3, 31G, 3/16 , 5mm. use daily with insulin, [facility], Supply, 162.6, cm, 05/01/21 13:54:00 EDT, Height/Length Dosing, 109.7, kg, 05/01/21 13:54:00 EDT, Weight Dosing Start: 05-27-2021 SHOULDER TOTAL ARTHROPLASTY Brown DO, Evan A 10/06/22 Unknown Shoulder L FDA Start: 10-06-2022 SHOULDER TOTAL ARTHROPLASTY Brown DO, Evan A 10/06/22 Unknown Shoulder L FDA Start: 10-06-2022 SHOULDER TOTAL ARTHROPLASTY Brown DO, Evan A 10/06/22 Unknown Shoulder L FDA Start: 10-06-2022 SHOULDER TOTAL ARTHROPLASTY Brown DO, Evan A 10/06/22 Unknown Shoulder L FDA Start: 10-06-2022 SHOULDER TOTAL ARTHROPLASTY Brown DO, Evan A 10/06/22 Unknown Shoulder L FDA Start: 10-06-2022 SHOULDER TOTAL ARTHROPLASTY Brown DO, Evan A 10/06/22 Unknown Shoulder L FDA Start: 10-06-2022 SHOULDER TOTAL ARTHROPLASTY Brown DO, Evan A 10/06/22 Unknown Shoulder L FDA Start: 10-06-2022 SHOULDER TOTAL ARTHROPLASTY Brown DO, Evan A 10/06/22 Unknown Shoulder L FDA Start: 10-06-2022 SHOULDER TOTAL ARTHROPLASTY Brown DO, Evan A 10/06/22 Unknown Shoulder L FDA Start: 10-06-2022 glucometer test strip, See Instructions, 360 strip(s), 3, test QID, [email or web address], Supply, 160, cm, 01/21/22 13:23:00 EDT, Height/Length Dosing, 116.6, kg, 01/21/22 13:23:00 EDT, Weight Dosing Start: 04-26-2022 pen needles, See Instructions, 100 EA, 3, 31G, 3/16 , 5mm. use daily with insulin, [facility], Supply, 162.6, cm, 05/01/21 13:54:00 EDT, Height/Length Dosing, 109.7, kg, 05/01/21 13:54:00 EDT, Weight Dosing Start: 05-27-2021 SHOULDER TOTAL ARTHROPLASTY Brown DO, Evan A 10/06/22 Unknown Shoulder L FDA Start: 10-06-2022 SHOULDER TOTAL ARTHROPLASTY Brown DO, Evan A 10/06/22 Unknown Shoulder L FDA Start: 10-06-2022 SHOULDER TOTAL ARTHROPLASTY Brown DO, Evan A 10/06/22 Unknown Shoulder L FDA Start: 10-06-2022 SHOULDER TOTAL ARTHROPLASTY Brown DO, Evan A 10/06/22 Unknown Shoulder L FDA Start: 10-06-2022 SHOULDER TOTAL ARTHROPLASTY Brown DO, Evan A 10/06/22 Unknown Shoulder L FDA Start: 10-06-2022 SHOULDER TOTAL ARTHROPLASTY Brown DO, Evan A 10/06/22 Unknown Shoulder L FDA Start: 10-06-2022 SHOULDER TOTAL ARTHROPLASTY Brown DO, Evan A 10/06/22 Unknown Shoulder L FDA Start: 10-06-2022 SHOULDER TOTAL ARTHROPLASTY Brown DO, Evan A 10/06/22 Unknown Shoulder L FDA Start: 10-06-2022 SHOULDER TOTAL ARTHROPLASTY Brown DO, Evan A 10/06/22 Unknown Shoulder L FDA Start: 10-06-2022 glucometer test strip, See Instructions, 360 strip(s), 3, test QID, [facility], Supply, 160, cm, 01/21/22 13:23:00 EDT, Height/Length Dosing, 116.6, kg, 01/21/22 13:23:00 EDT, Weight Dosing Start: 04-26-2022 pen needles, See Instructions, 100 EA, 3, 31G, 3/16 , 5mm. use daily with insulin, [facility], Supply, 162.6, cm, 05/01/21 13:54:00 EDT, Height/Length Dosing, 109.7, kg, 05/01/21 13:54:00 EDT, Weight Dosing Start: 05-27-2021 SHOULDER TOTAL ARTHROPLASTY Brown DO, Vean A 10/06/22 Unknown Shoulder L FDA Start: 10-06-2022 SHOULDER TOTAL ARTHROPLASTY Brown DO, Evan A 10/06/22 Unknown Shoulder L FDA Start: 10-06-2022 SHOULDER TOTAL ARTHROPLASTY Brown DO, Evan A 10/06/22 Unknown Shoulder L FDA Start: 10-06-2022 SHOULDER TOTAL ARTHROPLASTY Brown DO, Evan A 10/06/22 Unknown Shoulder L FDA Start: 10-06-2022 SHOULDER TOTAL ARTHROPLASTY Brown DO, Evan A 10/06/22 Unknown Shoulder L FDA Start: 10-06-2022 SHOULDER TOTAL ARTHROPLASTY Brown DO, Evan A 10/06/22 Unknown Shoulder L FDA Start: 10-06-2022 SHOULDER TOTAL ARTHROPLASTY Brown DO, Evan A 10/06/22 Unknown Shoulder L FDA Start: 10-06-2022 SHOULDER TOTAL ARTHROPLASTY Brown DO, Evan A 10/06/22 Unknown Shoulder L FDA Start: 10-06-2022 SHOULDER TOTAL ARTHROPLASTY Flynn DO, Evan A 10/06/22 Unknown Shoulder L FDA Start: 10-06-2022 glucometer test strip, See Instructions, 360 strip(s), 3, test QID, [facility], Supply, 160, cm, 01/21/22 13:23:00 EDT, Height/Length Dosing, 116.6, kg, 01/21/22 13:23:00 EDT, Weight Dosing Start: 04-26-2022 pen needles, See Instructions, 100 EA, 3, 31G, 3/16 , 5mm. use daily with insulin, [facility], Supply, 162.6, cm, 05/01/21 13:54:00 EDT, Height/Length Dosing, 109.7, kg, 05/01/21 13:54:00 EDT, Weight Dosing Start: 05-27-2021 SHOULDER TOTAL ARTHROPLASTY Brown DO, Evan A 10/06/22 Unknown Shoulder L FDA Start: 10-06-2022 SHOULDER TOTAL ARTHROPLASTY Brown DO, Evan A 10/06/22 Unknown Shoulder L FDA Start: 10-06-2022 SHOULDER TOTAL ARTHROPLASTY Brown DO, Evan A 10/06/22 Unknown Shoulder L FDA Start: 10-06-2022 SHOULDER TOTAL ARTHROPLASTY Brown DO, Evan A 10/06/22 Unknown Shoulder L FDA Start: 10-06-2022 SHOULDER TOTAL ARTHROPLASTY Brown DO, Evan A 10/06/22 Unknown Shoulder L FDA Start: 10-06-2022 SHOULDER TOTAL ARTHROPLASTY Brown DO, Evan A 10/06/22 Unknown Shoulder L FDA Start: 10-06-2022 SHOULDER TOTAL ARTHROPLASTY Brown DO, Evan A 10/06/22 Unknown Shoulder L FDA Start: 10-06-2022 SHOULDER TOTAL ARTHROPLASTY Brown DO, Evan A 10/06/22 Unknown Shoulder L FDA Start: 10-06-2022 SHOULDER TOTAL ARTHROPLASTY Brown DO, Evan A 10/06/22 Unknown Shoulder L FDA Start: 10-06-2022 glucometer test strip, See Instructions, 360 strip(s), 3, test QID, [facility], Supply, 160, cm, 01/21/22 13:23:00 EDT, Height/Length Dosing, 116.6, kg, 01/21/22 13:23:00 EDT, Weight Dosing Start: 04-26-2022 pen needles, See Instructions, 100 EA, 3, 31G, 3/16 , 5mm. use daily with insulin, [facility], Supply, 162.6, cm, 05/01/21 13:54:00 EDT, Height/Length Dosing, 109.7, kg, 05/01/21 13:54:00 EDT, Weight Dosing Start: 05-27-2021 SHOULDER TOTAL ARTHROPLASTY Brown DO, Evan A 10/06/22 Unknown Shoulder L FDA Start: 10-06-2022 SHOULDER TOTAL ARTHROPLASTY Brown DO, Evan A 10/06/22 Unknown Shoulder L FDA Start: 10-06-2022 SHOULDER TOTAL ARTHROPLASTY Brown DO, Evan A 10/06/22 Unknown Shoulder L FDA Start: 10-06-2022 SHOULDER TOTAL ARTHROPLASTY Brown DO, Evan A 10/06/22 Unknown Shoulder L FDA Start: 10-06-2022 SHOULDER TOTAL ARTHROPLASTY Brown DO, Evan A 10/06/22 Unknown Shoulder L FDA Start: 10-06-2022 SHOULDER TOTAL ARTHROPLASTY Brown DO, Evan A 10/06/22 Unknown Shoulder L FDA Start: 10-06-2022 SHOULDER TOTAL ARTHROPLASTY Brown DO, Evan A 10/06/22 Unknown Shoulder L FDA Start: 10-06-2022 SHOULDER TOTAL ARTHROPLASTY Brown DO, Evan A 10/06/22 Unknown Shoulder L FDA Start: 10-06-2022 SHOULDER TOTAL ARTHROPLASTY Brown DO, Evan A 10/06/22 Unknown Shoulder L FDA Start: 10-06-2022 glucometer test strip, See Instructions, 360 strip(s), 3, test QID, [facility], Supply, 160, cm, 04/28/23 14:54:00 EDT, Height/Length Dosing, 120.7, kg, 04/19/23 14:26:00 EDT, Weight Dosing Start: 05-05-2023 pen needles, See Instructions, 100 EA, 3, 31G, 3/16 , 5mm. use daily with insulin, [facility], Supply, 162.6, cm, 05/01/21 13:54:00 EDT, Height/Length Dosing, 109.7, kg, 05/01/21 13:54:00 EDT, Weight Dosing Start: 05-27-2021 SHOULDER TOTAL ARTHROPLASTY Brown DO, Evan A 10/06/22 Unknown Shoulder L FDA Start: 10-06-2022 SHOULDER TOTAL ARTHROPLASTY Brown DO, Evan A 10/06/22 Unknown Shoulder L FDA Start: 10-06-2022 SHOULDER TOTAL ARTHROPLASTY Brown DO, Evan A 10/06/22 Unknown Shoulder L FDA Start: 10-06-2022 SHOULDER TOTAL ARTHROPLASTY Brown DO, Evan A 10/06/22 Unknown Shoulder L FDA Start: 10-06-2022 SHOULDER TOTAL ARTHROPLASTY Brown DO, Evan A 10/06/22 Unknown Shoulder L FDA Start: 10-06-2022 SHOULDER TOTAL ARTHROPLASTY Brown DO, Evan A 10/06/22 Unknown Shoulder L FDA Start: 10-06-2022 SHOULDER TOTAL ARTHROPLASTY Brown DO, Evan A 10/06/22 Unknown Shoulder L FDA Start: 10-06-2022 SHOULDER TOTAL ARTHROPLASTY Brown DO, Evan A 10/06/22 Unknown Shoulder L FDA Start: 10-06-2022 SHOULDER TOTAL ARTHROPLASTY Brown DO, Evan A 10/06/22 Unknown Shoulder L FDA Start: 10-06-2022 glucometer test strip, See Instructions, 360 strip(s), 3, test QID, [facility], Supply, 160, cm, 04/28/23 14:54:00 EDT, Height/Length Dosing, 120.7, kg, 04/19/23 14:26:00 EDT, Weight Dosing Start: 05-05-2023 pen needles, See Instructions, 100 EA, 3, 31G, 3/16 , 5mm. use daily with insulin, [facility], Supply, 162.6, cm, 05/01/21 13:54:00 EDT, Height/Length Dosing, 109.7, kg, 05/01/21 13:54:00 EDT, Weight Dosing Start: 05-27-2021 SHOULDER TOTAL ARTHROPLASTY Brown DO, Evan A 10/06/22 Unknown Shoulder L FDA Start: 10-06-2022 SHOULDER TOTAL ARTHROPLASTY Brown DO, Evan A 10/06/22 Unknown Shoulder L FDA Start: 10-06-2022 SHOULDER TOTAL ARTHROPLASTY Brown DO, Evan A 10/06/22 Unknown Shoulder L FDA Start: 10-06-2022 SHOULDER TOTAL ARTHROPLASTY Brown DO, Evan A 10/06/22 Unknown Shoulder L FDA Start: 10-06-2022 SHOULDER TOTAL ARTHROPLASTY Brown DO, Evan A 10/06/22 Unknown Shoulder L FDA Start: 10-06-2022 SHOULDER TOTAL ARTHROPLASTY Brown DO, Evan A 10/06/22 Unknown Shoulder L FDA Start: 10-06-2022 SHOULDER TOTAL ARTHROPLASTY Brown DO, Evan A 10/06/22 Unknown Shoulder L FDA Start: 10-06-2022 SHOULDER TOTAL ARTHROPLASTY Brown DO, Evan A 10/06/22 Unknown Shoulder L FDA Start: 10-06-2022 SHOULDER TOTAL ARTHROPLASTY Brown DO, Evan A 10/06/22 Unknown Shoulder L FDA Start: 10-06-2022 glucometer test strip, See Instructions, 360 strip(s), [facility], cm, 04/28/23 14:54:00 EDT, Height/Length Dosing, 120.7, kg, 04/19/23 14:26:00 EDT, Weight Dosing Start: 05-05-2023 pen needles, See Instructions, 100 EA, 3, 31G, 3/16 , 5mm. use daily with insulin, [facility], Supply, 162.6, cm, 05/01/21 13:54:00 EDT, Height/Length Dosing, 109.7, kg, 05/01/21 13:54:00 EDT, Weight Dosing Start: 05-27-2021 Functional Status Date Assessment Result Facility 07-29-2023 Functional Status N/A [facility] 07-26-2023 Functional Status N/A [facility] 04-28-2023 Functional Status N/A [facility] 04-19-2023 Functional Status N/A [facility] 03-28-2023 Functional Status N/A [facility] 02-11-2023 Functional Status N/A [facility] 02-04-2023 Functional Status N/A [facility] 01-12-2023 Functional Status N/A [facility] 01-03-2023 Functional Status N/A [facility] 11-08-2022 Functional Status N/A [facility] 09-23-2022 Functional Status No [facility] 01-21-2022 Functional Status N/A [facility] Clinical Notes 10-15-2021 to 07-29-2023 Ashley Brower, PT - 01/26/2023 1:45 PM EDTPnuno Damico Shock - 01/13/2023 4:15 PM EDT Note Date & Type Note Facility 07-29-2023 Hospital Discharge instructions Patient Education 07/29/2023 10:05:23 Back Exercises, [id number] Back Exercises These exercises help to make your trunk and back strong. They also help to keep the lower back flexible. Doing these exercises can help to prevent or lessen pain in your lower back. If you have back pain, try to do these exercises 2 3 times each day or as told by your doctor. As you get better, do the exercises once each day. Repeat the exercises more often as told by your doctor. To stop back pain from coming back, do the exercises once each day, or as told by your doctor. Do exercises exactly as told by your doctor. Stop right away if you feel sudden pain or your pain gets worse. Exercises Single knee to chest Do these steps 3 5 times in a row for each le.Lie on your back on a firm bed or the floor with your legs stretched out. 2.Bring one knee to your chest. 3.Grab your knee or thigh with both hands and hold it in place. 4.Pull on your knee until you feel a gentle stretch in your lower back or butt. 5.Keep doing the stretch for 10 30 seconds. 6.Slowly let go of your leg and straighten it. Pelvic tilt Do these steps 5 10 times in a row: 1.Lie on your back on a firm bed or the floor with your legs stretched out. 2.Bend your knees so they point up to the ceiling. Your feet should be flat on the floor. 3.Tighten your lower belly (abdomen) muscles to press your lower back against the floor. This will make your tailbone point up to the ceiling instead of pointing down to your feet or the floor. 4.Stay in this position for 5 10 seconds while you gently tighten your muscles and breathe evenly. Cat cow Do these steps until your lower back bends more easily: 1.Get on your hands and knees on a firm bed or the floor. Keep your hands under your shoulders, and keep your knees under your hips. You may put padding under your knees. 2.Let your head hang down toward your chest. Tighten (contract) the muscles in your belly. Point your tailbone toward the floor so your lower back becomes rounded like the back of a cat. 3.Stay in this position for 5 seconds. 4.Slowly lift your head. Let the muscles of your belly relax. Point your tailbone up toward the ceiling so your back forms a sagging arch like the back of a cow. 5.Stay in this position for 5 seconds. Press-ups Do these steps 5 10 times in a row: 1.Lie on your belly (face-down) on a firm bed or the floor. 2.Place your hands near your head, about shoulder-width apart. 3.While you keep your back relaxed and keep your hips on the floor, slowly straighten your arms to raise the top half of your body and lift your shoulders. Do not use your back muscles. You may change where you place your hands to make yourself more comfortable. 4.Stay in this position for 5 seconds. Keep your back relaxed. 5.Slowly return to lying flat on the floor. Bridges Do these steps 10 times in a row: 1.Lie on your back on a firm bed or the floor. 2.Bend your knees so they point up to the ceiling. Your feet should be flat on the floor. Your arms should be flat at your sides, next to your body. 3.Tighten your butt muscles and lift your butt off the floor until your waist is almost as high as your knees. If you do not feel the muscles working in your butt and the back of your thighs, slide your feet 1 2 inches (2.5 5 cm) farther away from your butt. 4.Stay in this position for 3 5 seconds. 5.Slowly lower your butt to the floor, and let your butt muscles relax. If this exercise is too easy, try doing it with your arms crossed over your chest. Belly crunches Do these steps 5 10 times in a row: 1.Lie on your back on a firm bed or the floor with your legs stretched out. 2.Bend your knees so they point up to the ceiling. Your feet should be flat on the floor. 3.Cross your arms over your chest. 4.Tip your chin a little bit toward your chest, but do not bend your neck. 5.Tighten your belly muscles and slowly raise your chest just enough to lift your shoulder blades a tiny bit off the floor. Avoid raising your body higher than that because it can put too much stress on your lower back. 6.Slowly lower your chest and your head to the floor. Back lifts Do these steps 5 10 times in a row: 1.Lie on your belly (face-down) with your arms at your sides, and rest your forehead on the floor. 2.Tighten the muscles in your legs and your butt. 3.Slowly lift your chest off the floor while you keep your hips on the floor. Keep the back of your head in line with the curve in your back. Look at the floor while you do this. 4.Stay in this position for 3 5 seconds. 5.Slowly lower your chest and your face to the floor. Contact a doctor if: Your back pain gets a lot worse when you do an exercise. Your back pain does not get better within 2 hours after you exercise. If you have any of these problems, stop doing the exercises. Do not do them again unless your doctor says it is okay. Get help right away if: You have sudden, very bad back pain. If this happens, stop doing the exercises. Do not do them again unless your doctor says it is okay. This information is not intended to replace advice given to you by your health care provider. Make sure you discuss any questions you have with your health care provider. Document Revised: 09/30/2021 Document Reviewed: 09/30/2021 Elsevier Patient Education 2022 [employer]. Follow Up Care 07/20/2023 13:56:57 With:FLYNN WELDON FAAFP, RAHUL Prince Address: When: Unknown Comments:see provider 4mo [facility] 07-26-2023 Hospital Discharge instructions Patient Education 07/26/2023 15:10:25 BMI for Adults BMI for Adults What is BMI? Body mass index (BMI) is a number that is calculated from a person's weight and height. BMI can help estimate how much of a person's weight is composed of fat. BMI does not measure body fat directly. Rather, it is an alternative to procedures that directly measure body fat, which can be difficult and expensive. BMI can help identify people who may be at higher risk for certain medical problems. What are BMI measurements used for? BMI is used as a screening tool to identify possible weight problems. It helps determine whether a person is obese, overweight, a healthy weight, or underweight. BMI is useful for: Identifying a weight problem that may be related to a medical condition or may increase the risk for medical problems. Promoting changes, such as changes in diet and exercise, to help reach a healthy weight. BMI screening can be repeated to see if these changes are working. How is BMI calculated? BMI involves measuring your weight in relation to your height. Both height and weight are measured, and the BMI is calculated from those numbers. This can be done either in [place] ([place] or metric measurements. Note that charts and online BMI calculators are available to help you find your BMI quickly and easily without having to do these calculations yourself. To calculate your BMI in [place] ([place] measurements: 1.Measure your weight in pounds (lb). 2.Multiply the number of pounds by 703. For example, for a person who weighs 180 lb, multiply that number by 703, which equals 126,540. 3.Measure your height in inches. Then multiply that number by itself to get a measurement called inches squared. For example, for a person who is 70 inches tall, the inches squared measurement is 70 inches x 70 inches, which equals 4,900 inches squared. 4.Divide the total from step 2 (number of lb x 703) by the total from step 3 (inches squared): 126,540 4,900 = 25.8. This is your BMI. To calculate your BMI in metric measurements: 1.Measure your weight in kilograms (kg). 2.Measure your height in meters (m). Then multiply that number by itself to get a measurement called meters squared. For example, for a person who is 1.75 m tall, the meters squared measurement is 1.75 m x 1.75 m, which is equal to 3.1 meters squared. 3.Divide the number of kilograms (your weight) by the meters squared number. In this example: 70 3.1 = 22.6. This is your BMI. What do the results mean? BMI charts are used to identify whether you are underweight, normal weight, overweight, or obese. The following guidelines will be used: Underweight: BMI less than 18.5. Normal weight: BMI between 18.5 and 24.9. Overweight: BMI between 25 and 29.9. Obese: BMI of 30 or above. Keep these notes in mind: Weight includes both fat and muscle, so someone with a muscular build, such as an athlete, may have a BMI that is higher than 24.9. In cases like these, BMI is not an accurate measure of body fat. To determine if excess body fat is the cause of a BMI of 25 or higher, further assessments may need to be done by a health care provider. BMI is usually interpreted in the same way for men and women. Where to find more information For more information about BMI, including tools to quickly calculate your BMI, go to these websites: Centers for Disease Control and Prevention: www.cdc.gov [place] [employer]: www.heart.org National Heart, Lung, and Blood [place]: www.nhlbi.nih.gov Summary Body mass index (BMI) is a number that is calculated from a person's weight and height. BMI may help estimate how much of a person's weight is composed of fat. BMI can help identify those who may be at higher risk for certain medical problems. BMI can be measured using Congolese measurements or metric measurements. BMI charts are used to identify whether you are underweight, normal weight, overweight, or obese. This information is not intended to replace advice given to you by your health care provider. Make sure you discuss any questions you have with your health care provider. Document Revised: 04/09/2020 Document Reviewed: 02/15/2020 [employer] Patient Education 2022 [employer]. 07/26/2023 15:10:23 Insomnia Insomnia Insomnia is a sleep disorder that makes it difficult to fall asleep or stay asleep. Insomnia can cause fatigue, low energy, difficulty concentrating, mood swings, and poor performance at work or school. There are three different ways to classify insomnia: Difficulty falling asleep. Difficulty staying asleep. Waking up too early in the morning. Any type of insomnia can be long-term (chronic) or short-term (acute). Both are common. Short-term insomnia usually lasts for 3 months or less. Chronic insomnia occurs at least three times a week for longer than 3 months. What are the causes? Insomnia may be caused by another condition, situation, or substance, such as: Having certain mental health conditions, such as anxiety and depression. Using caffeine, alcohol, tobacco, or drugs. Having gastrointestinal conditions, such as gastroesophageal reflux disease (GERD). Having certain medical conditions. These include: ?Asthma. ?Alzheimer's disease. ?Stroke. ?Chronic pain. ?An overactive thyroid gland (hyperthyroidism). Other sleep disorders, such as restless legs syndrome and sleep apnea. Menopause. Sometimes, the cause of insomnia may not be known. What increases the risk? Risk factors for insomnia include: Gender. Females are affected more often than males. Age. Insomnia is more common as people get older. Stress and certain medical and mental health conditions. Lack of exercise. Having an irregular work schedule. This may include working night shifts and traveling between different time zones. What are the signs or symptoms? If you have insomnia, the main symptom is having trouble falling asleep or having trouble staying asleep. This may lead to other symptoms, such as: Feeling tired or having low energy. Feeling nervous about going to sleep. Not feeling rested in the morning. Having trouble concentrating. Feeling irritable, anxious, or depressed. How is this diagnosed? This condition may be diagnosed based on: Your symptoms and medical history. Your health care provider may ask about: ?Your sleep habits. ?Any medical conditions you have. ?Your mental health. A physical exam. How is this treated? Treatment for insomnia depends on the cause. Treatment may focus on treating an underlying condition that is causing the insomnia. Treatment may also include: Medicines to help you sleep. Counseling or therapy. Lifestyle adjustments to help you sleep better. Follow these instructions at home: Eating and drinking Limit or avoid alcohol, caffeinated beverages, and products that contain nicotine and tobacco, especially close to bedtime. These can disrupt your sleep. Do not eat a large meal or eat spicy foods right before bedtime. This can lead to digestive discomfort that can make it hard for you to sleep. Sleep habits Keep a sleep diary to help you and your health care provider figure out what could be causing your insomnia. Write down: ?When you sleep. ?When you wake up during the night. ?How well you sleep and how rested you feel the next day. ?Any side effects of medicines you are taking. ?What you eat and drink. Make your bedroom a dark, comfortable place where it is easy to fall asleep. ?Put up shades or blackout curtains to block light from outside. ?Use a white noise machine to block noise. ?Keep the temperature cool. Limit screen use before bedtime. This includes: ?Not watching TV. ?Not using your smartphone, tablet, or computer. Stick to a routine that includes going to bed and waking up at the same times every day and night. This can help you fall asleep faster. Consider making a quiet activity, such as reading, part of your nighttime routine. Try to avoid taking naps during the day so that you sleep better at night. Get out of bed if you are still awake after 15 minutes of trying to sleep. Keep the lights down, but try reading or doing a quiet activity. When you feel sleepy, go back to bed. General instructions Take [id number] and prescription medicines only as told by your health care provider. Exercise regularly as told by your health care provider. However, avoid exercising in the hours right before bedtime. Use relaxation techniques to manage stress. Ask your health care provider to suggest some techniques that may work well for you. These may include: ?Breathing exercises. ?Routines to release muscle tension. ?Visualizing peaceful scenes. Make sure that you drive carefully. Do not drive if you feel very sleepy. Keep all follow-up visits. This is important. Contact a health care provider if: You are tired throughout the day. You have trouble in your daily routine due to sleepiness. You continue to have sleep problems, or your sleep problems get worse. Get help right away if: You have thoughts about hurting yourself or someone else. Get help right away if you feel like you may hurt yourself or others, or have thoughts about taking your own life. Go to your nearest emergency room or: Call 911. Call the National Suicide Prevention Lifeline at or 176. This is open 24 hours a day. Text the Crisis Text Line at 061004. Summary Insomnia is a sleep disorder that makes it difficult to fall asleep or stay asleep. Insomnia can be long-term (chronic) or short-term (acute). Treatment for insomnia depends on the cause. Treatment may focus on treating an underlying condition that is causing the insomnia. Keep a sleep diary to help you and your health care provider figure out what could be causing your insomnia. This information is not intended to replace advice given to you by your health care provider. Make sure you discuss any questions you have with your health care provider. Document Revised: 06/28/2022 Document Reviewed: 06/28/2022 [employer] Patient Education 2022 [employer] 07/26/2023 15:10:17 Osteopenia Osteopenia Osteopenia is a loss of thickness (density) inside the bones. Another name for osteopenia is low bone mass. Mild osteopenia is a normal part of aging. It is not a disease, and it does not cause symptoms. However, if you have osteopenia and continue to lose bone mass, you could develop a condition that causes the bones to become thin and break more easily (osteoporosis). Osteoporosis can cause you to lose some height, have back pain, and have a stooped posture. Although osteopenia is not a disease, making changes to your lifestyle and diet can help to prevent osteopenia from developing into osteoporosis. What are the causes? Osteopenia is caused by loss of calcium in the bones. Bones are constantly changing. Old bone cells are continually being replaced with new bone cells. This process builds new bone. The mineral calcium is needed to build new bone and maintain bone density. Bone density is usually highest around age 35. After that, most people's bodies cannot replace all the bone they have lost with new bone. What increases the risk? You are more likely to develop this condition if: You are older than age 50. You are a woman who went through menopause early. You have a long illness that keeps you in bed. You do not get enough exercise. You lack certain nutrients (malnutrition). You have an overactive thyroid gland (hyperthyroidism). You use products that contain nicotine or tobacco, such as cigarettes, e-cigarettes and chewing tobacco, or you drink a lot of alcohol. You are taking medicines that weaken the bones, such as steroids. What are the signs or symptoms? This condition does not cause any symptoms. You may have a slightly higher risk for bone breaks (fractures), so getting fractures more easily than normal may be an indication of osteopenia. How is this diagnosed? This condition may be diagnosed based on an X-ray exam that measures bone density (dual-energy X-ray absorptiometry, or DEXA). This test can measure bone density in your hips, spine, and wrists. Osteopenia has no symptoms, so this condition is usually diagnosed after a routine bone density screening test is done for osteoporosis. This routine screening is usually done for: Women who are age 65 or older. Men who are age 70 or older. If you have risk factors for osteopenia, you may have the screening test at an earlier age. How is this treated? Making dietary and lifestyle changes can lower your risk for osteoporosis. If you have severe osteopenia that is close to becoming osteoporosis, this condition can be treated with medicines and dietary supplements such as calcium and vitamin D. These supplements help to rebuild bone density. Follow these instructions at home: Eating and drinking Eat a diet that is high in calcium and vitamin D. Calcium is found in dairy products, beans, salmon, and leafy green vegetables like spinach and broccoli. Look for foods that have vitamin D and calcium added to them (fortified foods), such as orange juice, cereal, and bread. Lifestyle Do 30 minutes or more of a weight-bearing exercise every day, such as walking, jogging, or playing a sport. These types of exercises strengthen the bones. Do not use any products that contain nicotine or tobacco, such as cigarettes, e-cigarettes, and chewing tobacco. If you need help quitting, ask your health care provider. Do not drink alcohol if: ?Your health care provider tells you not to drink. ?You are , may be , or are planning to become . If you drink alcohol: ?Limit how much you use to: ?0 1 drink a day for women. ?0 2 drinks a day for men. ?Be aware of how much alcohol is in your drink. In the [place] one drink equals one 12 oz bottle of beer (355 mL), one 5 oz glass of wine (148 mL), or one 1 oz glass of hard liquor (44 mL). General instructions Take ctzr-yzq-evfwitf and prescription medicines only as told by your health care provider. These include vitamins and supplements. Take precautions at home to lower your risk of falling, such as: ?Keeping rooms well-lit and free of clutter, such as cords. ?Installing safety rails on stairs. ?Using rubber mats in the bathroom or other areas that are often wet or slippery. Keep all follow-up visits. This is important. Contact a health care provider if: You have not had a bone density screening for osteoporosis and you are: ?A woman who is age 65 or older. ?A man who is age 70 or older. You are a postmenopausal woman who has not had a bone density screening for osteoporosis. You are older than age 50 and you want to know if you should have bone density screening for osteoporosis. Summary Osteopenia is a loss of thickness (density) inside the bones. Another name for osteopenia is low bone mass. Osteopenia is not a disease, but it may increase your risk for a condition that causes the bones to become thin and break more easily (osteoporosis). You may be at risk for osteopenia if you are older than age 50 or if you are a woman who went through early menopause. Osteopenia does not cause any symptoms, but it can be diagnosed with a bone density screening test. Dietary and lifestyle changes are the first treatment for osteopenia. These may lower your risk for osteoporosis. This information is not intended to replace advice given to you by your health care provider. Make sure you discuss any questions you have with your health care provider. Document Revised: 01/01/2021 Document Reviewed: 01/01/2021 [employer] Patient Education 2022 [employer]. 07/26/2023 15:10:09 Atrial Fibrillation Atrial Fibrillation Atrial fibrillation is a type of irregular or rapid heartbeat (arrhythmia). In atrial fibrillation, the top part of the heart (atria) beats in an irregular pattern. This makes the heart unable to pump blood normally and effectively. The goal of treatment is to prevent blood clots from forming, control your heart rate, or restore your heartbeat to a normal rhythm. If this condition is not treated, it can cause serious problems, such as a weakened heart muscle (cardiomyopathy) or a stroke. What are the causes? This condition is often caused by medical conditions that damage the heart's electrical system. These include: High blood pressure (hypertension). This is the most common cause. Certain heart problems or conditions, such as heart failure, coronary artery disease, heart valve problems, or heart surgery. Diabetes. Overactive thyroid (hyperthyroidism). Obesity. Chronic kidney disease. In some cases, the cause of this condition is not known. What increases the risk? This condition is more likely to develop in: Older people. People who smoke. Athletes who do endurance exercise. People who have a family history of atrial fibrillation. Men. People who use drugs. People who drink a lot of alcohol. People who have lung conditions, such as emphysema, pneumonia, or COPD. People who have obstructive sleep apnea. What are the signs or symptoms? Symptoms of this condition include: A feeling that your heart is racing or beating irregularly. Discomfort or pain in your chest. Shortness of breath. Sudden light-headedness or weakness. Tiring easily during exercise or activity. Fatigue. Syncope (fainting). Sweating. In some cases, there are no symptoms. How is this diagnosed? Your health care provider may detect atrial fibrillation when taking your pulse. If detected, this condition may be diagnosed with: An electrocardiogram (ECG) to check electrical signals of the heart. An ambulatory environmental monitoring specialist to record your heart's activity for a few days. A transthoracic echocardiogram (TTE) to create pictures of your heart. A transesophageal echocardiogram (VIKTORIA) to create even closer pictures of your heart. A stress test to check your blood supply while you exercise. Imaging tests, such as a CT scan or chest X-ray. Blood tests. How is this treated? Treatment depends on underlying conditions and how you feel when you experience atrial fibrillation. This condition may be treated with: Medicines to prevent blood clots or to treat heart rate or heart rhythm problems. Electrical cardioversion to reset the heart's rhythm. A pacemaker to correct abnormal heart rhythm. Ablation to remove the heart tissue that sends abnormal signals. Left atrial appendage closure to seal the area where blood clots can form. In some cases, underlying conditions will be treated. Follow these instructions at home: Medicines Take over-the counter and prescription medicines only as told by your health care provider. Do not take any new medicines without talking to your health care provider. If you are taking blood thinners: ? Talk with your health care provider before you take any medicines that contain aspirin or NSAIDs, such as ibuprofen. These medicines increase your risk for dangerous bleeding. ?Take your medicine exactly as told, at the same time every day. ?Avoid activities that could cause injury or bruising, and follow instructions about how to prevent falls. ?Wear a medical alert bracelet or carry a card that lists what medicines you take. Lifestyle Do not use any products that contain nicotine or tobacco, such as cigarettes, e-cigarettes, and chewing tobacco. If you need help quitting, ask your health care provider. Eat heart-healthy foods. Talk with a dietitian to make an eating plan that is right for you. Exercise regularly as told by your health care provider. Do not drink alcohol. Lose weight if you are overweight. Do not use drugs, including cannabis. General instructions If you have obstructive sleep apnea, manage your condition as told by your health care provider. Do not use diet pills unless your health care provider approves. Diet pills can make heart problems worse. Keep all follow-up visits as told by your health care provider. This is important. Contact a health care provider if you: Notice a change in the rate, rhythm, or strength of your heartbeat. Are taking a blood thinner and you notice more bruising. Tire more easily when you exercise or do heavy work. Have a sudden change in weight. Get help right away if you have: Chest pain, abdominal pain, sweating, or weakness. Trouble breathing. Side effects of blood thinners, such as blood in your vomit, stool, or urine, or bleeding that cannot stop. Any symptoms of a stroke. BE FAST is an easy way to remember the main warning signs of a stroke: ?B - Balance. Signs are dizziness, sudden trouble walking, or loss of balance. ?E - Eyes. Signs are trouble seeing or a sudden change in vision. ?F - Face. Signs are sudden weakness or numbness of the face, or the face or eyelid drooping on one side. ?A - Arms. Signs are weakness or numbness in an arm. This happens suddenly and usually on one side of the body. ?S - Speech. Signs are sudden trouble speaking, slurred speech, or trouble understanding what people say. ?T - Time. Time to call emergency services. Write down what time symptoms started. Other signs of a stroke, such as: ?A sudden, severe headache with no known cause. ?Nausea or vomiting. ?Seizure. These symptoms may represent a serious problem that is an emergency. Do not wait to see if the symptoms will go away. Get medical help right away. Call your local emergency services (911 in the [place] Do not drive yourself to the hospital. Summary Atrial fibrillation is a type of irregular or rapid heartbeat (arrhythmia). Symptoms include a feeling that your heart is beating fast or irregularly. You may be given medicines to prevent blood clots or to treat heart rate or heart rhythm problems. Get help right away if you have signs or symptoms of a stroke. Get help right away if you cannot catch your breath or have chest pain or pressure. This information is not intended to replace advice given to you by your health care provider. Make sure you discuss any questions you have with your health care provider. Document Revised: 01/09/2020 Document Reviewed: 01/09/2020 [employer] Patient Education 2022 [employer]. 07/26/2023 15:10:06 Managing Depression, Adult Managing Depression, Adult Depression is a mental health condition that affects your thoughts, feelings, and actions. Being diagnosed with depression can bring you relief if you did not know why you have felt or behaved a certain way. It could also leave you feeling overwhelmed with uncertainty about your future. Preparing yourself to manage your symptoms can help you feel more positive about your future. How to manage lifestyle changes Managing stress Stress is your body's reaction to life changes and events, both good and bad. Stress can add to your feelings of depression. Learning to manage your stress can help lessen your feelings of depression. Try some of the following approaches to reducing your stress (stress reduction techniques): Listen to music that you enjoy and that inspires you. Try using a meditation seth or take a meditation class. Develop a practice that helps you connect with your spiritual self. Walk in nature, pray, or go to a place of confucianist. Do some deep breathing. To do this, inhale slowly through your nose. Pause at the top of your inhale for a few seconds and then exhale slowly, letting your muscles relax. Practice yoga to help relax and work your muscles. Choose a stress reduction technique that suits your lifestyle and personality. These techniques take time and practice to develop. Set aside 5 15 minutes a day to do them. Therapists can offer training in these techniques. Other things you can do to manage stress include: Keeping a stress diary. Knowing your limits and saying no when you think something is too much. Paying attention to how you react to certain situations. You may not be able to control everything, but you can change your reaction. Adding humor to your life by watching funny films or TV shows. Making time for activities that you enjoy and that relax you. Medicines Medicines, such as antidepressants, are often a part of treatment for depression. Talk with your pharmacist or health care provider about all the medicines, supplements, and herbal products that you take, their possible side effects, and what medicines and other products are safe to take together. Make sure to report any side effects you may have to your health care provider. Relationships Your health care provider may suggest family therapy, couples therapy, or individual therapy as part of your treatment. How to recognize changes Everyone responds differently to treatment for depression. As you recover from depression, you may start to: Have more interest in doing activities. Feel less hopeless. Have more energy. Overeat less often, or have a better appetite. Have better mental focus. It is important to recognize if your depression is not getting better or is getting worse. The symptoms you had in the beginning may return, such as: Tiredness (fatigue) or low energy. Eating too much or too little. Sleeping too much or too little. Feeling restless, agitated, or hopeless. Trouble focusing or making decisions. Unexplained physical complaints. Feeling irritable, angry, or aggressive. If you or your family members notice these symptoms coming back, let your health care provider know right away. Follow these instructions at home: Activity Try to get some form of exercise each day, such as walking, biking, swimming, or lifting weights. Practice stress reduction techniques. Engage your mind by taking a class or doing some volunteer work. Lifestyle Get the right amount and quality of sleep. Cut down on using caffeine, tobacco, alcohol, and other potentially harmful substances. Eat a healthy diet that includes plenty of vegetables, fruits, whole grains, low-fat dairy products, and lean protein. Do not eat a lot of foods that are high in solid fats, added sugars, or salt (sodium). General instructions Take ksgo-epq-gyrmltt and prescription medicines only as told by your health care provider. Keep all follow-up visits as told by your health care provider. This is important. Where to find support Talking to others Friends and family members can be sources of support and guidance. Talk to trusted friends or family members about your condition. Explain your symptoms to them, and let them know that you are working with a health care provider to treat your depression. Tell friends and family members how they also can be helpful. Finances Find appropriate mental health providers that fit with your financial situation. Talk with your health care provider about options to get reduced prices on your medicines. Where to find more information You can find support in your area from: Anxiety and Depression Association of [place] (ADAA): www.adaa.org Mental Health [place]: www.mentalhealthamerica.net National [place] on Mental Illness: www.tori.org Contact a health care provider if: You stop taking your antidepressant medicines, and you have any of these symptoms: ?Nausea. ?Headache. ?Light-headedness. ?Chills and body aches. ?Not being able to sleep (insomnia). You or your friends and family think your depression is getting worse. Get help right away if: You have thoughts of hurting yourself or others. If you ever feel like you may hurt yourself or others, or have thoughts about taking your own life, get help right away. Go to your nearest emergency department or: Call your local emergency services (576 in the [place] Call a suicide crisis helpline, such as the National Suicide Prevention Lifeline at or 891 in the [place] This is open 24 hours a day in the [place] Text the Crisis Text Line at 109317 (in the [place] Summary If you are diagnosed with depression, preparing yourself to manage your symptoms is a good way to feel positive about your future. Work with your health care provider on a management plan that includes stress reduction techniques, medicines (if applicable), therapy, and healthy lifestyle habits. Keep talking with your health care provider about how your treatment is working. If you have thoughts about taking your own life, call a suicide crisis helpline or text a crisis text line. This information is not intended to replace advice given to you by your health care provider. Make sure you discuss any questions you have with your health care provider. Document Revised: 02/10/2022 Document Reviewed: 05/28/2020 [employer] Patient Education 2022 [employer]. [facility] 04-28-2023 Hospital Discharge instructions Patient Education 04/28/2023 15:31:00 Acute Pain, Adult Acute Pain, Adult Acute pain is a type of sudden pain that may last for just a few days or for as long as six months. It is often related to an illness, injury, or medical procedure. Acute pain may be mild, moderate, or severe. Pain can make it hard for you to do your normal, daily activities. It can cause anxiety and lead to other problems if it is left untreated. Treatment depends on the cause and severity of your pain. Acute pain usually goes away once your injury has healed or you are no longer ill. Follow these instructions at home: Medicines Take salc-ihf-nvbkwbb and prescription medicines only as told by your health care provider. Take the lowest dose of medicine for the shortest amount of time needed to relieve the pain. If you are taking prescription pain medicine: ?Do not stop taking the medicine suddenly. Talk to your health care provider about how and when to discontinue prescription medicine. ?Do not take more pills than told by your health care provider even if your pain is severe. ?Do not take other brsq-lma-szjckou pain medicines in addition to prescription pain medicine unless told by your health care provider. ?Ask your health care provider if the medicine requires you to avoid driving or using heavy machinery. ?Ask your health care provider if the medicine can cause constipation. You may need to take these actions to prevent or treat constipation: ?Drink enough fluid to keep your urine pale yellow. ?Eat foods that are high in fiber, such as beans, whole grains, and fresh fruits and vegetables. ?Take pqxs-azo-scvajfx or prescription medicines. ?Limit foods that are high in fat and processed sugars, such as fried or sweet foods. Managing pain, stiffness, and swelling If directed, put ice on the affected area. To do this: Put ice in a plastic bag. Place a towel between your skin and the bag. Leave the ice on for 20 minutes, 2 3 times a day. If directed, apply heat to the affected area as often as told by your health care provider. Use the heat source that your health care provider recommends, such as a moist heat pack or a heating pad. Place a towel between your skin and the heat source. Leave the heat on for 20 30 minutes. Remove the heat if your skin turns bright red. This is especially important if you are unable to feel pain, heat, or cold. You may have a greater risk of getting burned. Activity Rest as told by your health care provider. Return to your normal activities as told by your health care provider. Ask your health care provider what activities are safe for you. General instructions Check your pain level as told by your health care provider. Ask your health care provider if other strategies such as distraction, relaxation, or physical therapies can help your pain. Keep all follow-up visits as told by your health care provider. This is important. Contact a health care provider if: Your pain is not controlled by medicine. Your pain does not improve or gets worse. You have side effects from pain medicines, such as vomiting or confusion. Get help right away if you: Have severe pain. Have trouble breathing. Lose consciousness. Have chest pain or pressure that lasts for more than a few minutes, or if you have other symptoms along with chest pain, including if you: ?Have pain or discomfort in one or both arms, your back, neck, jaw, or stomach. ?Have shortness of breath. ?Break out in a cold sweat. ?Feel nauseous. ?Become light-headed. These symptoms may represent a serious problem that is an emergency. Do not wait to see if the symptoms will go away. Get medical help right away. Call your local emergency services (911 in the [place] Do not drive yourself to the hospital. Summary Acute pain may be mild, moderate, or severe. It usually goes away once your injury has healed or you are no longer ill. Take pnze-hfh-lutngtn and prescription medicines only as told by your health care provider. Ask your health care provider if the medicine prescribed to you can cause constipation. Contact a health care provider if your pain is not controlled by medicine. This information is not intended to replace advice given to you by your health care provider. Make sure you discuss any questions you have with your health care provider. Document Revised: 12/03/2019 Document Reviewed: 12/03/2019 [employer] Patient Education 2022 [employer]. Follow Up Care 04/19/2023 14:56:10 With:FLYNN WEDLON FAAFP, RAHUL Prince Address: When: Unknown Comments:see xray order [facility] 04-19-2023 Hospital Discharge instructions Patient Education 04/19/2023 15:06:40 Peripheral Edema Peripheral Edema Peripheral edema is swelling that is caused by a buildup of fluid. Peripheral edema most often affects the lower legs, ankles, and feet. It can also develop in the arms, hands, and face. The area of the body that has peripheral edema will look swollen. It may also feel heavy or warm. Your clothes may start to feel tight. Pressing on the area may make a temporary dent in your skin (pitting edema). You may not be able to move your swollen arm or leg as much as usual. There are many causes of peripheral edema. It can happen because of a complication of other conditions such as heart failure, kidney disease, or a problem with your circulation. It also can be a side effect of certain medicines or happen because of an infection. It often happens to women during . Sometimes, the cause is not known. Follow these instructions at home: Managing pain, stiffness, and swelling Raise (elevate) your legs while you are sitting or lying down. Move around often to prevent stiffness and to reduce swelling. Do not sit or stand for long periods of time. Do not wear tight clothing. Do not wear garters on your upper legs. Exercise your legs to get your circulation going. This helps to move the fluid back into your blood vessels, and it may help the swelling go down. Wear compression stockings as told by your health care provider. These stockings help to prevent blood clots and reduce swelling in your legs. It is important that these are the correct size. These stockings should be prescribed by your doctor to prevent possible injuries. If elastic bandages or wraps are recommended, use them as told by your health care provider. Medicines Take asih-yhh-swdvaax and prescription medicines only as told by your health care provider. Your health care provider may prescribe medicine to help your body get rid of excess water (diuretic). Take this medicine if you are told to take it. General instructions Eat a low-salt (low-sodium) diet as told by your health care provider. Sometimes, eating less salt may reduce swelling. Pay attention to any changes in your symptoms. Moisturize your skin daily to help prevent skin from cracking and draining. Keep all follow-up visits. This is important. Contact a health care provider if: You have a fever. You have swelling in only one leg. You have increased swelling, redness, or pain in one or both of your legs. You have drainage or sores at the area where you have edema. Get help right away if: You have edema that starts suddenly or is getting worse, especially if you are or have a medical condition. You develop shortness of breath, especially when you are lying down. You have pain in your chest or abdomen. You feel weak. You feel like you will faint. These symptoms may be an emergency. Get help right away. Call 911. Do not wait to see if the symptoms will go away. Do not drive yourself to the hospital. Summary Peripheral edema is swelling that is caused by a buildup of fluid. Peripheral edema most often affects the lower legs, ankles, and feet. Move around often to prevent stiffness and to reduce swelling. Do not sit or stand for long periods of time. Pay attention to any changes in your symptoms. Contact a health care provider if you have edema that starts suddenly or is getting worse, especially if you are or have a medical condition. Get help right away if you develop shortness of breath, especially when lying down. This information is not intended to replace advice given to you by your health care provider. Make sure you discuss any questions you have with your health care provider. Document Revised: 03/22/2022 Document Reviewed: 03/22/2022 [employer] Patient Education 2022 [employer]. Follow Up Care 04/18/2023 16:01:24 With:FLYNN WELDON FAAFP, Shyla Genao [facility] Address: [address] [place] [address] [place] [id number]- When:Within 1 Week(s) Comments:for edema FU [facility] [place] 03-28-2023 Hospital Discharge instructions Patient Education 03/28/2023 20:08:16 Peripheral Edema Peripheral Edema Peripheral edema is swelling that is caused by a buildup of fluid. Peripheral edema most often affects the lower legs, ankles, and feet. It can also develop in the arms, hands, and face. The area of the body that has peripheral edema will look swollen. It may also feel heavy or warm. Your clothes may start to feel tight. Pressing on the area may make a temporary dent in your skin (pitting edema). You may not be able to move your swollen arm or leg as much as usual. There are many causes of peripheral edema. It can happen because of a complication of other conditions such as heart failure, kidney disease, or a problem with your circulation. It also can be a side effect of certain medicines or happen because of an infection. It often happens to women during . Sometimes, the cause is not known. Follow these instructions at home: Managing pain, stiffness, and swelling Raise (elevate) your legs while you are sitting or lying down. Move around often to prevent stiffness and to reduce swelling. Do not sit or stand for long periods of time. Do not wear tight clothing. Do not wear garters on your upper legs. Exercise your legs to get your circulation going. This helps to move the fluid back into your blood vessels, and it may help the swelling go down. Wear compression stockings as told by your health care provider. These stockings help to prevent blood clots and reduce swelling in your legs. It is important that these are the correct size. These stockings should be prescribed by your doctor to prevent possible injuries. If elastic bandages or wraps are recommended, use them as told by your health care provider. Medicines Take srmt-adf-onemous and prescription medicines only as told by your health care provider. Your health care provider may prescribe medicine to help your body get rid of excess water (diuretic). Take this medicine if you are told to take it. General instructions Eat a low-salt (low-sodium) diet as told by your health care provider. Sometimes, eating less salt may reduce swelling. Pay attention to any changes in your symptoms. Moisturize your skin daily to help prevent skin from cracking and draining. Keep all follow-up visits. This is important. Contact a health care provider if: You have a fever. You have swelling in only one leg. You have increased swelling, redness, or pain in one or both of your legs. You have drainage or sores at the area where you have edema. Get help right away if: You have edema that starts suddenly or is getting worse, especially if you are or have a medical condition. You develop shortness of breath, especially when you are lying down. You have pain in your chest or abdomen. You feel weak. You feel like you will faint. These symptoms may be an emergency. Get help right away. Call 911. Do not wait to see if the symptoms will go away. Do not drive yourself to the hospital. Summary Peripheral edema is swelling that is caused by a buildup of fluid. Peripheral edema most often affects the lower legs, ankles, and feet. Move around often to prevent stiffness and to reduce swelling. Do not sit or stand for long periods of time. Pay attention to any changes in your symptoms. Contact a health care provider if you have edema that starts suddenly or is getting worse, especially if you are or have a medical condition. Get help right away if you develop shortness of breath, especially when lying down. This information is not intended to replace advice given to you by your health care provider. Make sure you discuss any questions you have with your health care provider. Document Revised: 03/22/2022 Document Reviewed: 03/22/2022 [employer] Patient Education 2022 [employer]. Follow Up Care 03/28/2023 11:33:03 With:FLYNN WELDON FAAFP, RAHUL Prince Address: When: Unknown Comments:return as otherwise [facility] [place] 02-11-2023 Hospital Discharge instructions Patient Education 02/11/2023 14:28:47 Blood Glucose Monitoring, Adult Blood Glucose Monitoring, Adult Monitoring your blood sugar (glucose) is an important part of managing your diabetes. Blood glucose monitoring involves checking your blood glucose as often as directed and keeping a log or record of your results over time. Checking your blood glucose regularly and keeping a blood glucose log can: Help you and your health care provider adjust your diabetes management plan as needed, including your medicines or insulin. Help you understand how food, exercise, illnesses, and medicines affect your blood glucose. Let you know what your blood glucose is at any time. You can quickly find out if you have low blood glucose (hypoglycemia) or high blood glucose (hyperglycemia). Your health care provider will set individualized treatment goals for you. Your goals will be based on your age, other medical conditions you have, and how you respond to diabetes treatment. Generally, the goal of treatment is to maintain the following blood glucose levels: Before meals (preprandial): 80 130 mg/dL (4.4 7.2 mmol/L). After meals (postprandial): below 180 mg/dL (10 mmol/L). A1C level: less than 7%. Supplies needed: Blood glucose meter. Test strips for your meter. Each meter has its own strips. You must use the strips that came with your meter. A needle to prick your finger (lancet). Do not use a lancet more than one time. A device that holds the lancet (lancing device). A journal or log book to write down your results. How to check your blood glucose Checking your blood glucose 1.Wash your hands for at least 20 seconds with soap and water. 2.Prick the side of your finger (not the tip) with the lancet. Do not use the same finger consecutively. 3.Gently rub the finger until a small drop of blood appears. 4.Follow instructions that come with your meter for inserting the test strip, applying blood to the strip, and using your blood glucose meter. 5.Write down your result and any notes in your log. Using alternative sites Some meters allow you to use areas of your body other than your finger (alternative sites) to test your blood. The most common alternative sites are the forearm, the thigh, and the palm of your hand. Alternative sites may not be as accurate as the fingers because blood flow is slower in those areas. This means that the result you get may be delayed, and it may be different from the result that you would get from your finger. Use the finger only, and do not use alternative sites, if: You think you have hypoglycemia. You sometimes do not know that your blood glucose is getting low (hypoglycemia unawareness). General tips and recommendations Blood glucose log Every time you check your blood glucose, write down your result. Also write down any notes about things that may be affecting your blood glucose, such as your diet and exercise for the day. This information can help you and your health care provider: ?Look for patterns in your blood glucose over time. ?Adjust your diabetes management plan as needed. Check if your meter allows you to download your records to a computer or if there is an seth for the meter. Most glucose meters store a record of glucose readings in the meter. If you have type 1 diabetes: Check your blood glucose 4 or more times a day if you are on intensive insulin therapy with multiple daily injections (MDI) or if you are using an insulin pump. Check your blood glucose: ?Before every meal and snack. ?Before bedtime. Also check your blood glucose: ?If you have symptoms of hypoglycemia. ?After treating low blood glucose. ?Before doing activities that create a risk for injury, like driving or using machinery. ?Before and after exercise. ?Two hours after a meal. ?Occasionally between 2:00 a.m. and 3:00 a.m., as directed. You may need to check your blood glucose more often, 6 10 times per day, if: ?You have diabetes that is not well controlled. ?You are ill. ?You have a history of severe hypoglycemia. ?You have hypoglycemia unawareness. If you have type 2 diabetes: Check your blood glucose 2 or more times a day if you take insulin or other diabetes medicines. Check your blood glucose 4 or more times a day if you are on intensive insulin therapy. Occasionally, you may also need to check your glucose between 2:00 a.m. and 3:00 a.m., as directed. Also check your blood glucose: ?Before and after exercise. ?Before doing activities that create a risk for injury, like driving or using machinery. You may need to check your blood glucose more often if: ?Your medicine is being adjusted. ?Your diabetes is not well controlled. ?You are ill. General tips Make sure you always have your supplies with you. After you use a few boxes of test strips, adjust (calibrate) your blood glucose meter by following instructions that came with your meter. If you have questions or need help, all blood glucose meters have a 24-hour hotline phone number available that you can call. Also contact your health care provider with questions or concerns you may have. Where to find more information The [place] [employer]: www.diabetes.org The Association of Diabetes [employer] & Education Specialists: www.diabeteseducator.org Contact a health care provider if: Your blood glucose is at or above 240 mg/dL (13.3 mmol/L) for 2 days in a row. You have been sick or have had a fever for 2 days or longer, and you are not getting better. You have any of the following problems for more than 6 hours: ?You cannot eat or drink. ?You have nausea or vomiting. ?You have diarrhea. Get help right away if: Your blood glucose is lower than 54 mg/dL (3 mmol/L). You become confused, or you have trouble thinking clearly. You have difficulty breathing. You have moderate or large ketone levels in your urine. These symptoms may represent a serious problem that is an emergency. Do not wait to see if the symptoms will go away. Get medical help right away. Call your local emergency services (911 in the [place] Do not drive yourself to the hospital. Summary Monitoring your blood glucose is an important part of managing your diabetes. Blood glucose monitoring involves checking your blood glucose as often as directed and keeping a log or record of your results over time. Your health care provider will set individualized treatment goals for you. Your goals will be based on your age, other medical conditions you have, and how you respond to diabetes treatment. Every time you check your blood glucose, write down your result. Also, write down any notes about things that may be affecting your blood glucose, such as your diet and exercise for the day. This information is not intended to replace advice given to you by your health care provider. Make sure you discuss any questions you have with your health care provider. Document Revised: 04/15/2021 Document Reviewed: 04/15/2021 [employer] Patient Education 2022 [employer]. Follow Up Care 02/08/2023 11:13:37 With:FLYNN WELDON FAAFP, RAHUL Prince Address: When: Unknown Comments:return for skin lesion removal, appt next to a break please or first of pm [facility] [place] 02-03-2023 Hospital Discharge instructions Patient Education 02/03/2023 14:40:54 Exercising to Lose Weight Exercising to Lose Weight Getting regular exercise is important for everyone. It is especially important if you are overweight. Being overweight increases your risk of heart disease, stroke, diabetes, high blood pressure, and several types of cancer. Exercising, and reducing the calories you consume, can help you lose weight and improve fitness and health. Exercise can be moderate or vigorous intensity. To lose weight, most people need to do a certain amount of moderate or vigorous-intensity exercise each week. How can exercise affect me? You lose weight when you exercise enough to burn more calories than you eat. Exercise also reduces body fat and builds muscle. The more muscle you have, the more calories you burn. Exercise also: Improves mood. Reduces stress and tension. Improves your overall fitness, flexibility, and endurance. Increases bone strength. Moderate-intensity exercise Moderate-intensity exercise is any activity that gets you moving enough to burn at least three times more energy (calories) than if you were sitting. Examples of moderate exercise include: Walking a mile in 15 minutes. Doing light yard work. Biking at an easy pace. Most people should get at least 150 minutes of moderate-intensity exercise a week to maintain their body weight. Vigorous-intensity exercise Vigorous-intensity exercise is any activity that gets you moving enough to burn at least six times more calories than if you were sitting. When you exercise at this intensity, you should be working hard enough that you are not able to carry on a conversation. Examples of vigorous exercise include: Running. Playing a team sport, such as football, basketball, and soccer. Jumping rope. Most people should get at least 75 minutes a week of vigorous exercise to maintain their body weight. What actions can I take to lose weight? The amount of exercise you need to lose weight depends on: Your age. The type of exercise. Any health conditions you have. Your overall physical ability. Talk to your health care provider about how much exercise you need and what types of activities are safe for you. Nutrition Make changes to your diet as told by your health care provider or diet and nutrition tech (dietitian). This may include: ?Eating fewer calories. ?Eating more protein. ?Eating less unhealthy fats. ?Eating a diet that includes fresh fruits and vegetables, whole grains, low-fat dairy products, and lean protein. ?Avoiding foods with added fat, salt, and sugar. Drink plenty of water while you exercise to prevent dehydration or heat stroke. Activity Choose an activity that you enjoy and set realistic goals. Your health care provider can help you make an exercise plan that works for you. Exercise at a moderate or vigorous intensity most days of the week. ?The intensity of exercise may vary from person to person. You can tell how intense a workout is for you by paying attention to your breathing and heartbeat. Most people will notice their breathing and heartbeat get faster with more intense exercise. Do resistance training twice each week, such as: ?Push-ups. ?Sit-ups. ?Lifting weights. ?Using resistance bands. Getting short amounts of exercise can be just as helpful as long, structured periods of exercise. If you have trouble finding time to exercise, try doing these things as part of your daily routine: ?Get up, stretch, and walk around every 30 minutes throughout the day. ?Go for a walk during your lunch break. ?Park your car farther away from your destination. ?If you take public transportation, get off one stop early and walk the rest of the way. ?Make phone calls while standing up and walking around. ?Take the stairs instead of elevators or escalators. Wear comfortable clothes and shoes with good support. Do not exercise so much that you hurt yourself, feel dizzy, or get very short of breath. Where to find more information [place] Department of Health and Human Services: www.hhs.gov Centers for Disease Control and Prevention: www.cdc.gov Contact a health care provider: Before starting a new exercise program. If you have questions or concerns about your weight. If you have a medical problem that keeps you from exercising. Get help right away if: You have any of the following while exercising: ?Injury. ?Dizziness. ?Difficulty breathing or shortness of breath that does not go away when you stop exercising. ?Chest pain. ?Rapid heartbeat. These symptoms may represent a serious problem that is an emergency. Do not wait to see if the symptoms will go away. Get medical help right away. Call your local emergency services (911 in the [place] Do not drive yourself to the hospital. Summary Getting regular exercise is especially important if you are overweight. Being overweight increases your risk of heart disease, stroke, diabetes, high blood pressure, and several types of cancer. Losing weight happens when you burn more calories than you eat. Reducing the amount of calories you eat, and getting regular moderate or vigorous exercise each week, helps you lose weight. This information is not intended to replace advice given to you by your health care provider. Make sure you discuss any questions you have with your health care provider. Document Revised: 09/13/2021 Document Reviewed: 09/13/2021 [employer] Patient Education 2022 [employer]. 02/03/2023 14:40:52 DASH Eating Plan DASH Eating Plan DASH stands for Dietary Approaches to Stop Hypertension. The DASH eating plan is a healthy eating plan that has been shown to: Reduce high blood pressure (hypertension). Reduce your risk for type 2 diabetes, heart disease, and stroke. Help with weight loss. What are tips for following this plan? Reading food labels Check food labels for the amount of salt (sodium) per serving. Choose foods with less than 5 percent of the Daily Value of sodium. Generally, foods with less than 300 milligrams (mg) of sodium per serving fit into this eating plan. To find whole grains, look for the word whole as the first word in the ingredient list. Shopping Buy products labeled as low-sodium or no salt added. Buy fresh foods. Avoid canned foods and pre-made or frozen meals. Cooking Avoid adding salt when cooking. Use salt-free seasonings or herbs instead of table salt or sea salt. Check with your health care provider or pharmacist before using salt substitutes. Do not hartmann foods. Cook foods using healthy methods such as baking, boiling, grilling, roasting, and broiling instead. Cook with heart-healthy oils, such as olive, canola, avocado, soybean, or sunflower oil. Meal planning Eat a balanced diet that includes: ?4 or more servings of fruits and 4 or more servings of vegetables each day. Try to fill one-half of your plate with fruits and vegetables. ?6 8 servings of whole grains each day. ?Less than 6 oz (170 g) of lean meat, poultry, or fish each day. A 3-oz (85-g) serving of meat is about the same size as a deck of cards. One egg equals 1 oz (28 g). ?2 3 servings of low-fat dairy each day. One serving is 1 cup (237 mL). ?1 serving of nuts, seeds, or beans 5 times each week. ?2 3 servings of heart-healthy fats. Healthy fats called omega-3 fatty acids are found in foods such as walnuts, flaxseeds, fortified milks, and eggs. These fats are also found in cold-water fish, such as sardines, salmon, and mackerel. Limit how much you eat of: ?Canned or prepackaged foods. ?Food that is high in trans fat, such as some fried foods. ?Food that is high in saturated fat, such as fatty meat. ?Desserts and other sweets, sugary drinks, and other foods with added sugar. ?Full-fat dairy products. Do not salt foods before eating. Do not eat more than 4 egg yolks a week. Try to eat at least 2 vegetarian meals a week. Eat more home-cooked food and less restaurant, buffet, and fast food. Lifestyle When eating at a restaurant, ask that your food be prepared with less salt or no salt, if possible. If you drink alcohol: ?Limit how much you use to: ?0 1 drink a day for women who are not . ?0 2 drinks a day for men. ?Be aware of how much alcohol is in your drink. In the [place] one drink equals one 12 oz bottle of beer (355 mL), one 5 oz glass of wine (148 mL), or one 1 oz glass of hard liquor (44 mL). General information Avoid eating more than 2,300 mg of salt a day. If you have hypertension, you may need to reduce your sodium intake to 1,500 mg a day. Work with your health care provider to maintain a healthy body weight or to lose weight. Ask what an ideal weight is for you. Get at least 30 minutes of exercise that causes your heart to beat faster (aerobic exercise) most days of the week. Activities may include walking, swimming, or biking. Work with your health care provider or dietitian to adjust your eating plan to your individual calorie needs. What foods should I eat? Fruits All fresh, dried, or frozen fruit. Canned fruit in natural juice (without added sugar). Vegetables Fresh or frozen vegetables (raw, steamed, roasted, or grilled). Low-sodium or reduced-sodium tomato and vegetable juice. Low-sodium or reduced-sodium tomato sauce and tomato paste. Low-sodium or reduced-sodium canned vegetables. Grains Whole-grain or whole-wheat bread. Whole-grain or whole-wheat pasta. Brown rice. Oatmeal. Quinoa. Bulgur. Whole-grain and low-sodium cereals. Meg bread. Low-fat, low-sodium crackers. Whole-wheat flour tortillas. Meats and other proteins Skinless chicken or turkey. Ground chicken or turkey. Pork with fat trimmed off. Fish and seafood. Egg whites. Dried beans, peas, or lentils. Unsalted nuts, nut butters, and seeds. Unsalted canned beans. Lean cuts of beef with fat trimmed off. Low-sodium, lean precooked or cured meat, such as sausages or meat loaves. Dairy Low-fat (1%) or fat-free (skim) milk. Reduced-fat, low-fat, or fat-free cheeses. Nonfat, low-sodium ricotta or cottage cheese. Low-fat or nonfat yogurt. Low-fat, low-sodium cheese. Fats and oils Soft margarine without trans fats. Vegetable oil. Reduced-fat, low-fat, or light mayonnaise and salad dressings (reduced-sodium). Canola, safflower, olive, avocado, soybean, and sunflower oils. Avocado. Seasonings and condiments Herbs. Spices. Seasoning mixes without salt. Other foods Unsalted popcorn and pretzels. Fat-free sweets. The items listed above may not be a complete list of foods and beverages you can eat. Contact a dietitian for more information. What foods should I avoid? Fruits Canned fruit in a light or heavy syrup. Fried fruit. Fruit in cream or butter sauce. Vegetables Creamed or fried vegetables. Vegetables in a cheese sauce. Regular canned vegetables (not low-sodium or reduced-sodium). Regular canned tomato sauce and paste (not low-sodium or reduced-sodium). Regular tomato and vegetable juice (not low-sodium or reduced-sodium). Pickles. Olives. Grains Baked goods made with fat, such as croissants, muffins, or some breads. Dry pasta or rice meal packs. Meats and other proteins Fatty cuts of meat. Ribs. Fried meat. Camargo. Bologna, salami, and other precooked or cured meats, such as sausages or meat loaves. Fat from the back of a pig (fatback). Bratwurst. Salted nuts and seeds. Canned beans with added salt. Canned or smoked fish. Whole eggs or egg yolks. Chicken or turkey with skin. Dairy Whole or 2% milk, cream, and axel-ibx-jzsw. Whole or full-fat cream cheese. Whole-fat or sweetened yogurt. Full-fat cheese. Nondairy creamers. Whipped toppings. Processed cheese and cheese spreads. Fats and oils Butter. Stick margarine. Lard. Shortening. Ghee. Camargo fat. Tropical oils, such as coconut, palm kernel, or palm oil. Seasonings and condiments Onion salt, garlic salt, seasoned salt, table salt, and sea salt. Worcestershire sauce. Tartar sauce. Barbecue sauce. Teriyaki sauce. Soy sauce, including reduced-sodium. Steak sauce. Canned and packaged gravies. Fish sauce. Oyster sauce. Cocktail sauce. Store-bought horseradish. Ketchup. Mustard. Meat flavorings and tenderizers. Bouillon cubes. Hot sauces. Pre-made or packaged marinades. Pre-made or packaged taco seasonings. Relishes. Regular salad dressings. Other foods Salted popcorn and pretzels. The items listed above may not be a complete list of foods and beverages you should avoid. Contact a dietitian for more information. Where to find more information National Heart, Lung, and Blood [place]: www.nhlbi.nih.gov [place] [employer]: www.heart.org Academy of Nutrition and Dietetics: www.eatright.org National Kidney Foundation: www.kidney.org Summary The DASH eating plan is a healthy eating plan that has been shown to reduce high blood pressure (hypertension). It may also reduce your risk for type 2 diabetes, heart disease, and stroke. When on the DASH eating plan, aim to eat more fresh fruits and vegetables, whole grains, lean proteins, low-fat dairy, and heart-healthy fats. With the DASH eating plan, you should limit salt (sodium) intake to 2,300 mg a day. If you have hypertension, you may need to reduce your sodium intake to 1,500 mg a day. Work with your health care provider or dietitian to adjust your eating plan to your individual calorie needs. This information is not intended to replace advice given to you by your health care provider. Make sure you discuss any questions you have with your health care provider. Document Revised: 06/20/2020 Document Reviewed: 06/20/2020 [employer] Patient Education 2022 [employer]. Follow Up Care 01/03/2023 12:53:13 With:Gene MAHONEY, 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, Yoselin Pappas Address: [address] [place] [phone] When:Within 1 Month(s) Comments:weight loss [facility] [place] 01-26-2023 History of Present illness Narrative Images from the original note were not included. [facility] Outpatient Physical Therapy Daily Note Date: 01/26/2023 Patient Name: Nahed Peterson : 1945 (77 y.o.) Referring Provider (secondary): Blanka Contreras PA-C Diagnosis: Sciatic pain, Fibromyalgia, lumbar back pain with radiculopathy, bilateral leg edema Treatment Diagnosis: Back Pain, L hip pain Onset Date: 01/03/23 PT Insurance Information: [facility] Total # of Visits Approved: 10 Per Physician Order Total # of Visits to Date: 2 Plan of Care/Certification Expiration Date: 02/25/23 Pre-Treatment Pain: 5/10 Assessment Assessment: Pain 5/10 across low back and both hips; howver no sever 6-8/10 pain since last PT visit. Completed therex and manual therapy per Doc flow. reviewed HEP, patient reports compliance and demonstrated correctly. Plan Continue with current plan of care Exercises/Modalities/Manual: See DocFlow Sheet Education: On exercise form Goals (Total # of Visits to Date: 2) Short Term Goals Time Frame for Short Term Goals: 8 Short Term Goal 1: Patient to be educated on and independent with HEP-Met Short Term Goal 2: Increase strength L hip abd 4+/5 for improved stability to walk without assistance Short Term Goal 3: Increase strength L hip flexion 4+/5 to climb stairs easier Regulatory Compliance Coordinator Goals Time Frame for Regulatory Compliance Coordinator Goals : 10 Regulatory Compliance Coordinator Goal 1: Decrease pain low back and left LE 4/10 at worst x3 days Regulatory Compliance Coordinator Goal 2: Improve functional mobility with Oswestry score <18/45 (from 25/45) Post Treatment Pain: 5/10 Time In: 13:45 Time Out : 14:30 Timed Code Treatment Minutes: 45 Minutes Total Treatment Time: 45 Minutes Ashley Brower PT Date: 01/26/2023 documented in this encounter [facility] 01-13-2023 History of Present illness Narrative Physical Therapy [facility] Date: 01/13/2023 Patient Name: Nahed Peterson : 1945 Patient in not able to make this appointment she is ill. She did reschedule. Digna Damico Shock Date: 01/13/2023 documented in this encounter [facility] 01-12-2023 Hospital Discharge instructions Patient Education 01/12/2023 15:02:59 Back Exercises, [id number] Back Exercises These exercises help to make your trunk and back strong. They also help to keep the lower back flexible. Doing these exercises can help to prevent or lessen pain in your lower back. If you have back pain, try to do these exercises 2 3 times each day or as told by your doctor. As you get better, do the exercises once each day. Repeat the exercises more often as told by your doctor. To stop back pain from coming back, do the exercises once each day, or as told by your doctor. Do exercises exactly as told by your doctor. Stop right away if you feel sudden pain or your pain gets worse. Exercises Single knee to chest Do these steps 3 5 times in a row for each le.Lie on your back on a firm bed or the floor with your legs stretched out. 2.Bring one knee to your chest. 3.Grab your knee or thigh with both hands and hold it in place. 4.Pull on your knee until you feel a gentle stretch in your lower back or butt. 5.Keep doing the stretch for 10 30 seconds. 6.Slowly let go of your leg and straighten it. Pelvic tilt Do these steps 5 10 times in a row: 1.Lie on your back on a firm bed or the floor with your legs stretched out. 2.Bend your knees so they point up to the ceiling. Your feet should be flat on the floor. 3.Tighten your lower belly (abdomen) muscles to press your lower back against the floor. This will make your tailbone point up to the ceiling instead of pointing down to your feet or the floor. 4.Stay in this position for 5 10 seconds while you gently tighten your muscles and breathe evenly. Cat cow Do these steps until your lower back bends more easily: 1.Get on your hands and knees on a firm bed or the floor. Keep your hands under your shoulders, and keep your knees under your hips. You may put padding under your knees. 2.Let your head hang down toward your chest. Tighten (contract) the muscles in your belly. Point your tailbone toward the floor so your lower back becomes rounded like the back of a cat. 3.Stay in this position for 5 seconds. 4.Slowly lift your head. Let the muscles of your belly relax. Point your tailbone up toward the ceiling so your back forms a sagging arch like the back of a cow. 5.Stay in this position for 5 seconds. Press-ups Do these steps 5 10 times in a row: 1.Lie on your belly (face-down) on a firm bed or the floor. 2.Place your hands near your head, about shoulder-width apart. 3.While you keep your back relaxed and keep your hips on the floor, slowly straighten your arms to raise the top half of your body and lift your shoulders. Do not use your back muscles. You may change where you place your hands to make yourself more comfortable. 4.Stay in this position for 5 seconds. Keep your back relaxed. 5.Slowly return to lying flat on the floor. Bridges Do these steps 10 times in a row: 1.Lie on your back on a firm bed or the floor. 2.Bend your knees so they point up to the ceiling. Your feet should be flat on the floor. Your arms should be flat at your sides, next to your body. 3.Tighten your butt muscles and lift your butt off the floor until your waist is almost as high as your knees. If you do not feel the muscles working in your butt and the back of your thighs, slide your feet 1 2 inches (2.5 5 cm) farther away from your butt. 4.Stay in this position for 3 5 seconds. 5.Slowly lower your butt to the floor, and let your butt muscles relax. If this exercise is too easy, try doing it with your arms crossed over your chest. Belly crunches Do these steps 5 10 times in a row: 1.Lie on your back on a firm bed or the floor with your legs stretched out. 2.Bend your knees so they point up to the ceiling. Your feet should be flat on the floor. 3.Cross your arms over your chest. 4.Tip your chin a little bit toward your chest, but do not bend your neck. 5.Tighten your belly muscles and slowly raise your chest just enough to lift your shoulder blades a tiny bit off the floor. Avoid raising your body higher than that because it can put too much stress on your lower back. 6.Slowly lower your chest and your head to the floor. Back lifts Do these steps 5 10 times in a row: 1.Lie on your belly (face-down) with your arms at your sides, and rest your forehead on the floor. 2.Tighten the muscles in your legs and your butt. 3.Slowly lift your chest off the floor while you keep your hips on the floor. Keep the back of your head in line with the curve in your back. Look at the floor while you do this. 4.Stay in this position for 3 5 seconds. 5.Slowly lower your chest and your face to the floor. Contact a doctor if: Your back pain gets a lot worse when you do an exercise. Your back pain does not get better within 2 hours after you exercise. If you have any of these problems, stop doing the exercises. Do not do them again unless your doctor says it is okay. Get help right away if: You have sudden, very bad back pain. If this happens, stop doing the exercises. Do not do them again unless your doctor says it is okay. This information is not intended to replace advice given to you by your health care provider. Make sure you discuss any questions you have with your health care provider. Document Revised: 09/30/2021 Document Reviewed: 09/30/2021 Else[employer] Patient Education 2022 [employer] Follow Up Care 01/12/2023 07:35:27 With:FLYNN WELDON FAAFP, RAHUL Prince Address: When: Unknown Comments:return as otherwise, telephone result to patient [facility] [place] 01-03-2023 Hospital Discharge instructions Patient Education 01/03/2023 13:24:47 Budget-Friendly Healthy Eating Budget-Friendly Healthy Eating There are many ways to save money at the grocery store and continue to eat healthy. You can be successful if you: Plan meals according to your budget. Make a grocery list and only purchase food according to your grocery list. Prepare food yourself at home. What are tips for following this plan? Reading food labels Compare food labels between brand name foods and the store brand. Often the nutritional value is the same, but the store brand is lower cost. Look for products that do not have added sugar, fat, or salt (sodium). These often cost the same but are healthier for you. Products may be labeled as: ?Sugar-free. ?Nonfat. ?Low-fat. ?Sodium-free. ?Low-sodium. Look for lean ground beef labeled as at least 92% lean and 8% fat. Shopping Buy only the items on your grocery list and go only to the areas of the store that have the items on your list. Use coupons only for foods and brands you normally buy. Avoid buying items you wouldn't normally buy simply because they are on sale. Check online and in newspapers for weekly deals. Buy healthy items from the bulk bins when available, such as herbs, spices, flour, pasta, nuts, and dried fruit. Buy fruits and vegetables that are in season. Prices are usually lower on in-season produce. Look at the unit daley on the daley tag. Use it to compare different brands and sizes to find out which item is the best deal. Choose healthy items that are often low-cost, such as carrots, potatoes, apples, bananas, and oranges. Dried or canned beans are a low-cost protein source. Buy in bulk and freeze extra food. Items you can buy in bulk include meats, fish, poultry, frozen fruits, and frozen vegetables. Avoid buying myfvi-ci-sjy foods, such as pre-cut fruits and vegetables and pre-made salads. If possible, shop around to discover where you can find the best prices. Consider other retailers such as dollar stores, larger wholesale stores, local fruit and vegetable stands, and farmers markets. Do not shop when you are hungry. If you shop while hungry, it may be hard to stick to your list and budget. Resist impulse buying. Use your grocery list as your official plan for the week. Buy a variety of vegetables and fruits by purchasing fresh, frozen, and canned items. Look at the top and bottom shelves for deals. Foods at eye level (eye level of an adult or child) are usually more expensive. Be efficient with your time when shopping. The more time you spend at the store, the more money you are likely to spend. To save money when choosing more expensive foods like meats and dairy: ?Choose cheaper cuts of meat, such as bone-in chicken thighs and drumsticks instead of skinless and boneless chicken. When you are ready to prepare the chicken, you can remove the skin yourself to make it healthier. ?Choose lean meats like chicken or turkey instead of beef. ?Choose canned seafood, such as tuna, salmon, or sardines. ?Buy eggs as a low-cost source of protein. ?Buy dried beans and peas, such as lentils, split peas, or kidney beans instead of meats. Dried beans and peas are a good alternative source of protein. ?Buy the larger tubs of yogurt instead of individual-sized containers. Choose water instead of sodas and other sweetened beverages. Avoid buying chips, cookies, and other junk food. These items are usually expensive and not healthy. Cooking Make extra food and freeze the extras in meal-sized containers or in individual portions for fast meals and snacks. Pre-cook on days when you have extra time to prepare meals in advance. You can keep these meals in the fridge or freezer and reheat for a quick meal. When you come home from the grocery store, wash, peel, and cut fruits and vegetables so they are ready to use and eat. This will help reduce food waste. Meal planning Do not eat out or get fast food. Prepare food at home. Make a grocery list and make sure to bring it with you to the store. If you have a smart phone, you could use your phone to create your shopping list. Plan meals and snacks according to a grocery list and budget you create. Use leftovers in your meal plan for the week. Look for recipes where you can cook once and make enough food for two meals. Prepare budget-friendly types of meals like stews, casseroles, and stir-hartmann dishes. Try some meatless meals or try no cook meals like salads. Make sure that half your plate is filled with fruits or vegetables. Choose from fresh, frozen, or canned fruits and vegetables. If eating canned, remember to rinse them before eating. This will remove any excess salt added for packaging. Summary Eating healthy on a budget is possible if you plan your meals according to your budget, purchase according to your budget and grocery list, and prepare food yourself. Tips for buying more food on a limited budget include buying generic brands, using coupons only for foods you normally buy, and buying healthy items from the bulk bins when available. Tips for buying cheaper food to replace expensive food include choosing cheaper, lean cuts of meat, and buying dried beans and peas. This information is not intended to replace advice given to you by your health care provider. Make sure you discuss any questions you have with your health care provider. Document Revised: 04/30/2021 Document Reviewed: 04/30/2021 [employer] Patient Education 2022 [employer] 01/03/2023 13:24:43 Pinched Nerve Pinched Nerve A pinched nerve is an injury that occurs when too much pressure is placed on a nerve. This pressure can cause pain, burning, and muscle weakness in places that the nerve supplies feeling to, such as an arm, hand, or leg, or the back or neck. If a nerve is severely pinched or has been pinched for a long time, permanent nerve damage can occur. What are the causes? This condition may be caused by: A nerve passing through a narrow area between bones or other body structures. Arthritis that causes bones to press on a nerve. Loss of blood supply to a nerve. A nerve being stretched from an injury. A sudden injury with swelling. Long-term wear on the nerve. Age-related changes in the spine. What are the signs or symptoms? The most common symptoms of a pinched nerve are feeling a tingling sensation and numbness. Other symptoms include: Pain that spreads from one area of the body part to another. A burning feeling. Muscle weakness. How is this diagnosed? This condition may be diagnosed based on: A physical exam. During the exam, your health care provider will: ?Check for numbness and muscle weakness. ?Move affected body parts to test for pain. X-rays to check for bone damage. An MRI or CT scan to check for conditions that may be causing nerve damage. An electromyogram and nerve conduction study to evaluate how your muscles and nerves communicate. How is this treated? A pinched nerve is usually treated first by: Resting the affected body area. Using devices to help you move without pain (supportive or protective devices), such as a splint, brace, or neck collar. Other treatments depend on your symptoms and the amount of nerve damage you have. Other treatments may include: Medicines, such as: ?Injections of numbing medicine. ?NSAIDs. ?Pain medicines. ?Steroid medicines. These may be given as a pill or as an injection. Physical therapy to relieve pain, maintain movement, and improve muscle strength. Surgery. This may be done if other treatments do not work. Follow these instructions at home: If you have a removable collar, splint, or brace: Wear the collar, splint, or brace as told by your health care provider. Remove it only as told by your health care provider. Check the skin around the collar, splint, or brace every day. Tell your health care provider about any concerns. Loosen the collar, splint, or brace if any part of your body tingles, becomes numb, or turns cold and blue. Keep the collar, splint or brace clean. If the collar, splint, or brace is not waterproof: ?Do not let it get wet. ?Cover it with a watertight covering when you take a bath or shower. Ask your health care provider when it is safe to drive if you have a collar, splint, or brace. Managing pain and stiffness If directed, put ice on the affected area. To do this: ?If you have a removable collar, splint, or brace, remove it as told by your health care provider. ?Put ice in a plastic bag. ?Place a towel between your skin and the bag. ?Leave the ice on for 20 minutes, 2 3 times a day. ?Remove the ice if your skin turns bright red. This is very important. If you cannot feel pain, heat, or cold, you have a greater risk of damage to the area. If directed, apply heat to the affected area before you exercise. Use the heat source that your health care provider recommends, such as a moist heat pack or a heating pad. ?Place a towel between your skin and the heat source. ?Leave the heat on for 20 30 minutes. ?Remove the heat if your skin turns bright red. This is especially important if you are unable to feel pain, heat, or cold. You may have a greater risk of getting burned. General instructions Take okfd-ssn-kdzvhgx and prescription medicines only as told by your health care provider. Wear supportive or protective devices as told by your health care provider. Do physical therapy exercises as directed by your health care provider or physical therapist. Return to your normal activities as told by your health care provider. Ask your health care provider what activities are safe for you. Rest as needed. Keep all follow-up visits. This is important. Where to find more information National [place] of Neurological Disorders and Stroke: www.ninds.nih.gov Contact a health care provider if: Your condition does not improve with treatment. Your pain, numbness, or weakness suddenly gets worse. You have new weakness in your arms or legs. Get help right away if you: Have loss of bladder control (urinary incontinence) or you cannot urinate. Cannot control bowel movements (fecal incontinence). These symptoms may be an emergency. Get help right away. Call 911. Do not wait to see if the symptoms will go away. Do not drive yourself to the hospital. Summary A pinched nerve is an injury that occurs when too much pressure is placed on a nerve. This pressure can cause pain, burning, and muscle weakness in places that the nerve supplies feeling to, such as an arm, hand, or leg, or the back or neck. Take gvjl-wbu-qhhldch and prescription medicines only as told by your health care provider. Ask your health care provider what activities are safe for you. This information is not intended to replace advice given to you by your health care provider. Make sure you discuss any questions you have with your health care provider. Document Revised: 03/29/2022 Document Reviewed: 03/29/2022 [employer] Patient Education 2022 [employer]. 01/03/2023 13:22:48 Peripheral Edema Peripheral Edema Peripheral edema is swelling that is caused by a buildup of fluid. Peripheral edema most often affects the lower legs, ankles, and feet. It can also develop in the arms, hands, and face. The area of the body that has peripheral edema will look swollen. It may also feel heavy or warm. Your clothes may start to feel tight. Pressing on the area may make a temporary dent in your skin (pitting edema). You may not be able to move your swollen arm or leg as much as usual. There are many causes of peripheral edema. It can happen because of a complication of other conditions such as heart failure, kidney disease, or a problem with your circulation. It also can be a side effect of certain medicines or happen because of an infection. It often happens to women during . Sometimes, the cause is not known. Follow these instructions at home: Managing pain, stiffness, and swelling Raise (elevate) your legs while you are sitting or lying down. Move around often to prevent stiffness and to reduce swelling. Do not sit or stand for long periods of time. Do not wear tight clothing. Do not wear garters on your upper legs. Exercise your legs to get your circulation going. This helps to move the fluid back into your blood vessels, and it may help the swelling go down. Wear compression stockings as told by your health care provider. These stockings help to prevent blood clots and reduce swelling in your legs. It is important that these are the correct size. These stockings should be prescribed by your doctor to prevent possible injuries. If elastic bandages or wraps are recommended, use them as told by your health care provider. Medicines Take rmjk-ong-corfigq and prescription medicines only as told by your health care provider. Your health care provider may prescribe medicine to help your body get rid of excess water (diuretic). Take this medicine if you are told to take it. General instructions Eat a low-salt (low-sodium) diet as told by your health care provider. Sometimes, eating less salt may reduce swelling. Pay attention to any changes in your symptoms. Moisturize your skin daily to help prevent skin from cracking and draining. Keep all follow-up visits. This is important. Contact a health care provider if: You have a fever. You have swelling in only one leg. You have increased swelling, redness, or pain in one or both of your legs. You have drainage or sores at the area where you have edema. Get help right away if: You have edema that starts suddenly or is getting worse, especially if you are or have a medical condition. You develop shortness of breath, especially when you are lying down. You have pain in your chest or abdomen. You feel weak. You feel like you will faint. These symptoms may be an emergency. Get help right away. Call 911. Do not wait to see if the symptoms will go away. Do not drive yourself to the hospital. Summary Peripheral edema is swelling that is caused by a buildup of fluid. Peripheral edema most often affects the lower legs, ankles, and feet. Move around often to prevent stiffness and to reduce swelling. Do not sit or stand for long periods of time. Pay attention to any changes in your symptoms. Contact a health care provider if you have edema that starts suddenly or is getting worse, especially if you are or have a medical condition. Get help right away if you develop shortness of breath, especially when lying down. This information is not intended to replace advice given to you by your health care provider. Make sure you discuss any questions you have with your health care provider. Document Revised: 03/22/2022 Document Reviewed: 03/22/2022 [employer] Patient Education 2022 [employer]. Follow Up Care 12/31/2022 16:11:26 With:FLYNN ROBERTS, RAHUL Prince Address: [address] [place] [address] [place] [address]- When: only if needed Comments:Needs appointment with Yoselin for weight loss management consultation. About a month from now [facility] [place] 11-08-2022 Hospital Discharge instructions Patient Education 11/08/2022 19:48:48 Acute Pain, Adult Acute Pain, Adult Acute pain is a type of sudden pain that may last for just a few days or for as long as six months. It is often related to an illness, injury, or medical procedure. Acute pain may be mild, moderate, or severe. Pain can make it hard for you to do your normal, daily activities. It can cause anxiety and lead to other problems if it is left untreated. Treatment depends on the cause and severity of your pain. Acute pain usually goes away once your injury has healed or you are no longer ill. Follow these instructions at home: Medicines Take ltch-ksw-cduzdna and prescription medicines only as told by your health care provider. Take the lowest dose of medicine for the shortest amount of time needed to relieve the pain. If you are taking prescription pain medicine: ?Do not stop taking the medicine suddenly. Talk to your health care provider about how and when to discontinue prescription medicine. ?Do not take more pills than told by your health care provider even if your pain is severe. ?Do not take other egkt-zmj-cywfdld pain medicines in addition to prescription pain medicine unless told by your health care provider. ?Ask your health care provider if the medicine requires you to avoid driving or using heavy machinery. ?Ask your health care provider if the medicine can cause constipation. You may need to take these actions to prevent or treat constipation: ?Drink enough fluid to keep your urine pale yellow. ?Eat foods that are high in fiber, such as beans, whole grains, and fresh fruits and vegetables. ?Take pvwj-tnp-kqoxrbt or prescription medicines. ?Limit foods that are high in fat and processed sugars, such as fried or sweet foods. Managing pain, stiffness, and swelling If directed, put ice on the affected area. To do this: Put ice in a plastic bag. Place a towel between your skin and the bag. Leave the ice on for 20 minutes, 2 3 times a day. If directed, apply heat to the affected area as often as told by your health care provider. Use the heat source that your health care provider recommends, such as a moist heat pack or a heating pad. Place a towel between your skin and the heat source. Leave the heat on for 20 30 minutes. Remove the heat if your skin turns bright red. This is especially important if you are unable to feel pain, heat, or cold. You may have a greater risk of getting burned. Activity Rest as told by your health care provider. Return to your normal activities as told by your health care provider. Ask your health care provider what activities are safe for you. General instructions Check your pain level as told by your health care provider. Ask your health care provider if other strategies such as distraction, relaxation, or physical therapies can help your pain. Keep all follow-up visits as told by your health care provider. This is important. Contact a health care provider if: Your pain is not controlled by medicine. Your pain does not improve or gets worse. You have side effects from pain medicines, such as vomiting or confusion. Get help right away if you: Have severe pain. Have trouble breathing. Lose consciousness. Have chest pain or pressure that lasts for more than a few minutes, or if you have other symptoms along with chest pain, including if you: ?Have pain or discomfort in one or both arms, your back, neck, jaw, or stomach. ?Have shortness of breath. ?Break out in a cold sweat. ?Feel nauseous. ?Become light-headed. These symptoms may represent a serious problem that is an emergency. Do not wait to see if the symptoms will go away. Get medical help right away. Call your local emergency services (911 in the [place] Do not drive yourself to the hospital. Summary Acute pain may be mild, moderate, or severe. It usually goes away once your injury has healed or you are no longer ill. Take aqul-wxq-zciwgml and prescription medicines only as told by your health care provider. Ask your health care provider if the medicine prescribed to you can cause constipation. Contact a health care provider if your pain is not controlled by medicine. This information is not intended to replace advice given to you by your health care provider. Make sure you discuss any questions you have with your health care provider. Document Released: 08/01/2016 Document Revised: 12/03/2019 Document Reviewed: 12/03/2019 [employer] Patient Education 2020 [employer]. Follow Up Care 11/08/2022 09:42:46 With:FLYNN WELDON FAAFP, RAHUL Prince Address: When: Unknown Comments:telephone result to patient, return as otherwise [facility] [place] 10-07-2022 Evaluation + Plan note Extrac angella from: Title:Discharge Summary Author:Evna Pruett DO Date:10/07/22 Discharge Information Discharge Summary Information: Admit Date/Time: 10/06/22 10:23Discharge Date/Time: 10/07/22 07:47 Admitting Physician: Evan Pruett DO Referring Physician for Admission: Evan Pruett DO Consulting Physicians: none Admitting Diagnoses: DJD/posttraumatic arthritis left shoulder procedure: L reverse TSA discharge disposition: home Discharge Diagnoses: Primary osteoarthritis, left shoulder Prescription and Home Meds: Misc Prescription (glucometer test strip) See Instructions, test QID, 360 strip(s), 3 Refill(s) Misc Prescription (pen needles) See Instructions, 31G, 3/16 , 5mm. use daily with insulin, 100 EA, 3 Refill(s) Non-Formulary Medication (Vision Formula/Lutein) 1 tab, Oral, Daily acetaminophen-oxycodone (Percocet 5 mg-325 mg oral tablet) See Instructions, 1-2 tab(s) Oral q4hr, 40 tab(s), 0 Refill(s) baclofen (baclofen 10 mg Tab) 10 mg, 1 tab(s), Oral, TID, PRN: Muscle pain, 0 Refill(s) carvedilol (carvedilol 25 mg Tab) 12.5 mg, 0.5 tab(s), Oral, BID, 0 Refill(s) celecoxib (CeleBREX 100 mg Cap) 100 mg, 1 cap(s), Oral, Daily, PRN: for pain, 30 cap(s), 0 Refill(s) cephalexin (Keflex 500 mg Cap) 500 mg, 1 cap(s), Oral, q8hr, for 7 day(s), 21 cap(s), 0 Refill(s) cetirizine (cetirizine 10 mg oral capsule) 10 mg, 1 cap(s), Oral, Daily, PRN: for allergy symptoms, 0 Refill(s) cholecalciferol (Vitamin D3) 2,000 International_Unit, Oral, Daily, 0 Refill(s) cyanocobalamin (Vitamin B12 1000 mcg Tab) 1,000 mcg, 1 tab(s), Oral, Daily, 0 Refill(s) diltiazem (Cardizem 60 mg Tab) 60 mg, 1 tab(s), Oral, TID, 0 Refill(s) docusate (Colace 100 mg Cap) 100 mg, 1 cap(s), Oral, BID, PRN: for constipation, 20 cap(s), 0 Refill(s) doxepin (doxepin 10 mg Cap) 10 mg, 1 cap(s), Oral, Once a day (at bedtime), 0 Refill(s) duloxetine (Cymbalta 30 mg Cap-EC) 30 mg, 1 cap(s), Oral, Daily, 90 cap(s), 1 Refill(s) ferrous gluconate (ferrous gluconate 256 mg (28 mg elemental iron) oral tablet) 256 mg, 1 tab(s), Oral, Daily, 0 Refill(s) insulin glargine (Lantus Solostar Pen 100 units/mL subcutaneous solution) 25 unit(s), SubCutaneous, BID, 45 mL, 3 Refill(s) levothyroxine (levothyroxine 75 mcg (0.075 mg) Tab) 75 microgram, 1 tab(s), Oral, Daily, 90 tab(s), 3 Refill(s) liraglutide (Victoza 6 mg/mL subcutaneous injection) 2.4 mg, SubCutaneous, Daily, 90 day supply, 36 mL, 3 Refill(s) magnesium oxide (magnesium oxide 400 mg Tab) 400 mg, 1 tab(s), Oral, BID, 0 Refill(s) ramipril (ramipril 5 mg Cap) 5 mg, 1 cap(s), Oral, Daily, 90 cap(s), 0 Refill(s) rivaroxaban (Xarelto 20 mg oral tablet) 20 mg, 1 tab(s), Oral, Daily, 0 Refill(s) rosuvastatin (rosuvastatin 10 mg Tab) 0.5 tab, Oral, Daily, 45 tab(s), 1 Refill(s) Future Appointments Appointment Date:12/20/2022 01:20:00 PM Scheduled Provider:Shyla PRUETT MD, FAAFP Location:[facility] Appointment Type: Open Future Scheduled Tests Laboratory* Microalbumin Level Urine 06/18/22 [facility]03-09-2023 NotePatient: NAHED PETERSON Age: 77 years Sex: Female : 1945 Associated Diagnoses: None Author: Evan Pruett DO Discharge Information Discharge Summary Information: Admit Date/Time: 10/06/22 10:23 Discharge Date/Time: 10/07/22 07:47 Admitting Physician: Evan Pruett DO Referring Physician for Admission: Evan Pruett DO Consulting Physicians: none Admitting Diagnoses: DJD/posttraumatic arthritis left shoulder procedure: L reverse TSA discharge disposition: home Discharge Diagnoses: Primary osteoarthritis, left shoulder Prescription and Home Meds: Misc Prescription (glucometer test strip) See Instructions, test QID, 360 strip(s), 3 Refill(s) Misc Prescription (pen needles) See Instructions, 31G, 3/16 , 5mm. use daily with insulin, 100 EA, 3 Refill(s) Non-Formulary Medication (Vision Formula/Lutein) 1 tab, Oral, Daily acetaminophen-oxycodone (Percocet 5 mg-325 mg oral tablet) See Instructions, 1-2 tab(s) Oral q4hr, 40 tab(s), 0 Refill(s) baclofen (baclofen 10 mg Tab) 10 mg, 1 tab(s), Oral, TID, PRN: Muscle pain, 0 Refill(s) carvedilol (carvedilol 25 mg Tab) 12.5 mg, 0.5 tab(s), Oral, BID, 0 Refill(s) celecoxib (CeleBREX 100 mg Cap) 100 mg, 1 cap(s), Oral, Daily, PRN: for pain, 30 cap(s), 0 Refill(s) cephalexin (Keflex 500 mg Cap) 500 mg, 1 cap(s), Oral, q8hr, for 7 day(s), 21 cap(s), 0 Refill(s) cetirizine (cetirizine 10 mg oral capsule) 10 mg, 1 cap(s), Oral, Daily, PRN: for allergy symptoms,0 Refill(s) cholecalciferol (Vitamin D3) 2,000 International_Unit, Oral, Daily, 0 Refill(s) cyanocobalamin (Vitamin B12 1000 mcg Tab) 1,000 mcg, 1 tab(s), Oral, Daily, 0 Refill(s) diltiazem (Cardizem 60 mg Tab) 60 mg, 1 tab(s), Oral, TID, 0 Refill(s) docusate (Colace 100 mg Cap) 100 mg, 1 cap(s), Oral, BID, PRN: for constipation, 20 cap(s), 0 Refill(s) doxepin (doxepin 10 mg Cap) 10 mg, 1 cap(s), Oral, Once a day (at bedtime), 0 Refill(s) duloxetine (Cymbalta 30 mg Cap-EC) 30 mg, 1 cap(s), Oral, Daily, 90 cap(s), 1 Refill(s) ferrous gluconate (ferrous gluconate 256 mg (28 mg elemental iron) oral tablet) 256 mg, 1 tab(s), Oral, Daily, 0 Refill(s) insulin glargine (Lantus Solostar Pen 100 units/mL subcutaneous solution) 25 unit(s), SubCutaneous,BID, 45 mL, 3 Refill(s) levothyroxine (levothyroxine 75 mcg (0.075 mg) Tab) 75 microgram, 1 tab(s), Oral, Daily, 90 tab(s),3 Refill(s) liraglutide (Victoza 6 mg/mL subcutaneous injection) 2.4 mg, SubCutaneous, Daily, 90 day supply, 36mL, 3 Refill(s) magnesium oxide (magnesium oxide 400 mg Tab) 400 mg, 1 tab(s), Oral, BID, 0 Refill(s) ramipril (ramipril 5 mg Cap) 5 mg, 1 cap(s), Oral, Daily, 90 cap(s), 0 Refill(s) rivaroxaban (Xarelto 20 mg oral tablet) 20 mg, 1 tab(s), Oral, Daily, 0 Refill(s) rosuvastatin (rosuvastatin 10 mg Tab) 0.5 tab, Oral, Daily, 45 tab(s), 1 Refill(s)[facility] HospitalComment [facility]:Result Comment: Electronically Signed By: Evan Pruett DO\.br\Date and Time Signed: 10/07/22 07:48 [id number] Hospital Discharge instructions Patient Education 10/07/2022 07:47:13 Alisson Pruett - Shoulder Replacement (Custom) [place], [place] [facility] DISCHARGE INSTRUCTIONS: SHOULDER REPLACEMENT MEDICATIONS You will be given a prescription for pain medication. This should be taken with food as needed. This may cause stomach upset, dizziness, and possible constipation. Please notify the office if you have any medication allergies to this type of medication or if any problems develop with the medication. DRESSING CHANGES Leave your bandage in place until your follow up visit. The bandage is waterproof, so you may shower it home. Any increase in pain, temperature over 101 degrees, redness, or drainage should be reported to the office prior to your first office visit. ACTIVITY You may continue to progress activity as comfortably tolerated with your opposite arm. You may begin to use your elbow, wrist, and hand as directed in physical therapy. You should only remove your sling for bathing and to perform range of motion exercises for the hand, wrist, and elbow. Do not actively move your shoulder Continue to ice the shoulder several times per day until follow up. ANESTHESIA PRECAUTIONS You should not operate a vehicle, automobile, bicycle or motorcycle, machinery, or power tools, make any important decisions, or drink alcohol for 24 hours. It may be beneficial to have a responsible adult remain with you for your first 24 hours after surgery. You may be drowsy and light-headed. DRIVING Driving is legal, however, if you are involved in an accident, you must be able to prove that you maintained full control of your vehicle. For this reason, it is advised that you do not drive until your strength returns. PROBLEMS You should notify the office for any persistent or heavy bleeding, temperature above 101, redness, swelling, or drainage from the operative site, severe pain at the operative site, or the developmentof persistent vomiting. Evan Pruett, DO [facility] [address] [place], [place] [address] Reviewed: Follow Up Care 09/08/2022 12:16:28 With:Evan Pruett Address: [address] [place] [id number] Business (1) When:10/19/2022 08:45:00 With:Shyla PRUETT Address: [address] [place] [address] Business (1) When: Unknown Comments:No PCP appointment required for surgery patient. Please follow-up with Ortho. Thank you! [facility]03-07-2023 Note [id number]:[id number] [facility] 08-24-2022 NoteCONSULTATION CONSULTATION DATE: 08/24/2022 CHIEF COMPLAINT: Left cervical/shoulder pain. HISTORY OF PRESENT ILLNESS: This is a very pleasant, 77-year-old female who is known to the pain clinic. The patient is status post rhizotomy radiofrequency ablation in her low back in July. The patient reports 85+% improvement and is very pleased with the results. The patient still continues to have a little of low back pain to the right hand side. However, the pain in her left trapezius region is most problematic. The patient is scheduled for a left total shoulder replacement in September. The patient currently takes baclofen 10 mg h.s., [place] 5/325 b.i.d. which will be refilled for her today, duloxetine 30 mg daily and Xarelto, along with a vitamin regimen. The patient's PAST MEDICAL HISTORY / SURGICAL HISTORY / REVIEW OF SYSTEMS are noted on the chart, along with the MEDICATION LIST, ALLERGIES and RADIOLOGICAL IMAGES. PHYSICAL EXAM: Upon physical examination, this is a pleasant, cooperative female, who does not appear to be in any acute distress. VITAL SIGNS: Stable at 133/64 with a heart rate of 72. At a height of 5'3 , the patient weighs 114 kg. HEAD: Atraumatic. NECK: No over spasming is noted. MUSCULOSKELETAL: Spasming is present along the left trapezius with reproduction of the patient's pain symptomatology. The patient is guarded with her shoulder range of motion. Personnel Technician strength is maintained in the upper extremities bilaterally. Remainder of the examination is noncontributory. IMPRESSION: Current working diagnosis on the patient is low back pain significantly improved post rhizotomy radiofrequency ablation. Right gluteal pain - The patient is to apply heat rub to this area. With regards to her cervicalgia/trapezius spasming, we will perform trigger point injection on the left hand side in office today. A U-Tox will also be done along with a Cra[place]ville refill. 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 POSTOPERATIVE DIAGNOSIS: Trapezius spasming on the left hand side. PROCEDURE: Trapezius trigger point injection. Subsequent to obtaining informed consent, the patient was placed in the sitting position. Alcohol prep was used to sterilize the site. A 25 gauge needle was advanced and it comes to rest along the trigger point identified, which reproduced the patient's pain symptomatology. Marcaine 0.125% along with Kenalog 20 mg are placed to the site. Negative heme. The patient tolerates the procedure well without any overt complication, will be followed up in the office post shoulder replacement. She will be followed for her three month interval evaluation for the narcotics, should she need them.[facility] [place] [facility] [id number] NotePROCEDURE: XR SHOULDER LT 2V or > HISTORY: Pain of left shoulder joint ; chronic but increasing in severity COMPARISON: None. FINDINGS: BONES:Advanced degenerative changes of the glenohumeral joint with irregular remodeling of the head and glenoid. Large degenerative osteophyte along the undersurface of the acromioclavicular joint. SOFT TISSUES:Calcification projecting between the humeral head and glenoid, possibly within the superior rotator cuff tendon. EFFUSION:None visible. OTHER: Negative. IMPRESSION: 1. Marked degenerative joint disease of left glenohumeral joint. 2. Possible sequela of calcific tendinitis. 3. Degenerative changes of the acromioclavicular joint which would predispose to rotator cuff injury. 4. No appreciable acute abnormality. No comparison studies. Electronically authenticated by: CARLO LAWSON Date: 2022-06-11 06:32[facility] [place] [facility] [id number] NoteCONSULTATION CONSULTATION DATE: 06/03/2022 This is a 77-yearold female returning to the clinic status post #2 bilateral MBB of L2, L3 and L4, L5 which was completed on 05/18/2022. This has afforded her 75% relief for three days. During that time her functionality improved in the way of endurance, posture and distance of walking. Today her pain is 4 out of 10 and does increase with prolonged standing, walking, housework, vacuuming, bending and changes in the weather. She does use a mixture of Vicks and Voltaren to her back and applies heat which is helpful. Medications include Baclofen 10 mg q.h.s., Xarelto 20 mg q. day, [place] 5/325 b.i.d. She is complaining today of left shoulder pain. She states years ago she had an injury to that left shoulder where she shattered it at her job. Within the past couple of weeks the pain has been increased as well as notable decrease in range of motion. She denies any numbness, tingling or motor weakness. REVIEW OF SYSTEMS, PAST MEDICAL HISTORY, ALLERGIES AND IMAGES: Have been reviewed and noted in the chart. PHYSICAL EXAM: VITAL SIGNS: Blood pressure 144/73, heart rate is 72. Height is 5'3 , weighs 117 kg. GENERAL APPEARANCE: Pleasant, appropriate and in no acute distress. FOCUSED EXAM: BACK: Range of motion is guarded in later rotation and flexion/extension. Paravertebral muscles are non-spasmodic. Reproduction of spinoaxial pain noted to direct compression along the lower lumbar facets of L2, L3 and L4, L5. It does not radiate below the leg. Murphy's point is nontender, negative Bria's and compression tests. MUSCULOSKELETAL: Motor is 4/5 bilaterally. No vasomotor weakness noted. NEUROLOGICAL: Radicular sensory is intact. Negative polyneuropathy. DIAGNOSIS: Lumbar degenerative disk disease, lumbar spondylosis, spinoaxial lower back pain and left shoulder pain. PLAN: We will obtain a left shoulder x-ray today to examine her. We will authorize to move forward with radiofrequency ablation starting on the right side and subsequently move to the left of L2, L3 and L4, L5. We will gain approval from to hold her Berlinto prior to the procedure. The patient agrees with this and would like to move forward.[facility] [place] [facility] [id number] History of Present illness Narrative* Gabriella Pizano RN - 03/02/2022 9:36 AM EDT Testing complete - patient tolerated well. Patient denies any pain/discomfort or shortness of breath. Drink and snack provided. * Gabriella Pizano RN - 03/02/2022 9:32 AM EDT Patient reports shortness of breath and abdominal cramping have subsided. * Gabriella Pizano RN - 03/02/2022 9:30 AM EDT Patient reports feeling short of breath and having abdominal cramping at this time * Gabriella Pizano RN - 03/02/2022 9:28 AM EDT Testing started * Gabriella Pizano RN - 03/02/2022 9:26 AM EDT Allergies and home mediations reviewed/updated with patient. Patient verbalized understanding of test/procedure. documented in this encounterBON SMCpros Work Phone: [phone]) 803-896707-07-2022 NoteCONSULTATION CONSULTATION DATE: 02/04/2022 This is a pleasant 76-year-old female returning to the clinic status post #1 bilateral MBB of L2, L3 and L4, L5 completed on 01/19/2022. The patient was afforded 85% relief and its ongoing. The patient states for the first time in a long time she was able to get in and out of bed and turn over without pain. She is able to sweep the floor, stand longer and go shopping with less pain. Current medications include Voltaren gel, duloxetine and [place] 5/325 b.i.d. She was recently placed on Fosamax, magnesium, iron and B12. She does take Xarelto. Activities that aggravate her pain are prolonged standing, walking, stairs and bending. She does use heat in the which is very helpful. REVIEW OF SYSTEMS, PAST MEDICAL HISTORY, ALLERGIES AND IMAGES: Have been reviewed and noted in the chart. PHYSICAL EXAM: VITAL SIGNS: Blood pressure 133/69, heart rate is 75, temperature is 97.3. Height is 5'3 , weighs 150.8 kg. GENERAL APPEARANCE: Pleasant, appropriate and in no acute distress. FOCUSED EXAM: BACK: Lateral rotation is guarded as is flexion and extension. Reproduction of the patient's spinoaxial pain noted to direct compression along the posterior elements of the lumbar facets of L2, L3 and L4, L5 indicative of ill facet arthropathy, lumbar spondylosis. Murphy's point is nontender. MUSCULOSKELETAL: Motor is intact 4 out of 5 bilaterally. She does have diffuse atrophy noted to bilateral lower extremities. The patient does not use an assistive device. NEUROLOGICAL: Radicular sensory is intact, negative polyneuropathy. Bilateral patellar reflexes are +2. DIAGNOSIS: Lumbar degenerative disks, lumbar spondylosis, lumbar spinoaxial pain, muscle atrophy. PLAN: We will proceed with #2 bilateral MBB of L2, L3 and L4, L5 with decreasing Depo Medrol dose by 1/2. She will begin baclofen 10 mg q.h.s. at bedtime and will continue with her B complex vitamin and regular medication regimen. The patient agrees with the plan of care and would like to move forward and she will be followed up in the clinic post procedure IFC Signed and Approved by: ALEJANDRO DECKER . 02/11/2022 09:47:00[facility]06-23-2022 Hospital Discharge instructions Patient Education 01/21/2022 14:01:55 Osteopenia Osteopenia Osteopenia is a loss of thickness (density) inside of the bones. Another name for osteopenia is lowbone mass. Mild osteopenia is a normal part of aging. It is not a disease, and it does not cause symptoms. However, if you have osteopenia and continue to lose bone mass, you could develop a condition that causes the bones to become thin and break more easily (osteoporosis). You may also lose some height, have back pain, and have a stooped posture. Although osteopenia is not a disease, making changes to your lifestyle and diet can help to prevent osteopenia from developing into osteoporosis. What are the causes? Osteopenia is caused by loss of calcium in the bones. Bones are constantly changing. Old bone cells are continually being replaced with new bone cells. This process builds new bone. The mineral calcium is needed to build new bone and maintain bone density. Bone density is usually highest around age 35. After that, most people's bodies cannot replace all the bone they have lost with new bone. What increases the risk? You are more likely to develop this condition if: You are older than age 50. You are a woman who went through menopause early. You have a long illness that keeps you in bed. You do not get enough exercise. You lack certain nutrients (malnutrition). You have an overactive thyroid gland (hyperthyroidism). You smoke. You drink a lot of alcohol. You are taking medicines that weaken the bones, such as steroids. What are the signs or symptoms? This condition does not cause any symptoms. You may have a slightly higher risk for bone breaks (fractures), so getting fractures more easily than normal may be an indication of osteopenia. How is this diagnosed? Your health care provider can diagnose this condition with a special type of X- ray exam that measures bone density (dual-energy X-ray absorptiometry, DEXA). This test can measure bone density in yourhips, spine, and wrists. Osteopenia has no symptoms, so this condition is usually diagnosed after a routine bone density screening test is done for osteoporosis. This routine screening is usually done for: Women who are age 65 or older. Men who are age 70 or older. If you have risk factors for osteopenia, you may have the screening test at an earlier age. How is this treated? Making dietary and lifestyle changes can lower your risk for osteoporosis. If you have severe osteopenia that is close to becoming osteoporosis, your health care provider may prescribe medicines and dietary supplements such as calcium and vitamin D. These supplements help to rebuild bone density. Follow these instructions at home: Take etik-lrs-arickqt and prescription medicines only as told by your health care provider. These include vitamins and supplements. Eat a diet that is high in calcium and vitamin D. ?Calcium is found in dairy products, beans, salmon, and leafy green vegetables like spinach and broccoli. ?Look for foods that have vitamin D and calcium added to them (fortified foods), such as orange juice, cereal, and bread. Do 30 or more minutes of a weight-bearing exercise every day, such as walking, jogging, or playing a sport. These types of exercises strengthen the bones. Take precautions at home to lower your risk of falling, such as: ?Keeping rooms well-lit and free of clutter, such as cords. ?Installing safety rails on stairs. ?Using rubber mats in the bathroom or other areas that are often wet or slippery. Do not use any products that contain nicotine or tobacco, such as cigarettes and e-cigarettes. If you need help quitting, ask your health care provider. Avoid alcohol or limit alcohol intake to no more than 1 drink a day for non women and 2 drinks a day for men. One drink equals 12 oz of beer, 5 oz of wine, or 1 oz of hard liquor. Keep all follow-up visits as told by your health care provider. This is important. Contact a health care provider if: You have not had a bone density screening for osteoporosis and you are: ?A woman, age 65 or older. ?A man, age 70 or older. You are a postmenopausal woman who has not had a bone density screening for osteoporosis. You are older than age 50 and you want to know if you should have bone density screening for osteoporosis. Summary Osteopenia is a loss of thickness (density) inside of the bones. Another name for osteopenia is lowbone mass. Osteopenia is not a disease, but it may increase your risk for a condition that causes the bones tobecome thin and break more easily (osteoporosis). You may be at risk for osteopenia if you are older than age 50 or if you are a woman who went through early menopause. Osteopenia does not cause any symptoms, but it can be diagnosed with a bone density screening test. Dietary and lifestyle changes are the first treatment for osteopenia. These may lower your risk forosteoporosis. This information is not intended to replace advice given to you by your health care provider. Make sure you discuss any questions you have with your health care provider. Document Released: 04/26/2018 Document Revised: 06/30/2018 Document Reviewed: 04/26/2018 [employer] Patient Education 2020 [employer]. Follow Up Care 12/31/2021 10:35:49 With:FLYNN WELDON FAAFP, RAHUL Prince Address: When: Unknown Comments:return as otherwise scheduled [facility] [place] 05-25-2022 NoteCONSULTATION CONSULTATION DATE: 12/23/2021 HISTORY OF PRESENT ILLNESS: This is a 76-year-old female returning to the clinic status post bilateral SI RFA completed on 11/03/2020 that afforded her 10% relief. The patient reports her pain as sharp, stabbing, and achy and is located in her lower lumbar area that radiates diffusely across her belt line. She rates her pain 4/10 today. She does have relief; however, in her buttock area since the procedure, the pain has been mitigated. Activities such as stairs, housework, bending, standing and pushing and pulling aggravate her pain. Sitting and heat decrease the pain. Current medications include Xarelto, [place] 5/325 b.i.d., duloxetine and magnesium regimen. She does have current numbness to the dorsal aspect of her right foot. She denies any new vasomotor changes. Patient's REVIEW OF SYSTEMS / PAST MEDICAL HISTORY / ALLERGIES and IMAGES have been reviewed and they are noted on the chart. PHYSICAL EXAM: VITALS: Blood pressure is 189/80. Heart rate is 74. Temperature is 97.1. She is 5'3 and weighs 119 kg. FOCUSED EXAM - BACK: Range of motion is guarded in lateral rotation and flexion/extension. Reproduction of patient's spinal axial pain noted to direct compression along the posterior elements that are concordant with facet arthropathy, lumbar spondylosis to L2, L3 and L4, L5 bilaterally. Paravertebral muscles are non-spasmodic. Murphy's point is non-tender. Bria's and compression tests negative. MUSCULOSKELETAL: Motor is intact, 4/5 bilaterally. Ambulates with a steady gait. Does not use assistive device. NEUROLOGICALLY: Patchy hypoesthesia noted along L4-L5 to the right. Bilateral patellar reflexes are +1. IMPRESSION: Lumbar spondylosis, lumbar degenerative disc, spinal axial lower back pain, bilateral sacroiliitis. PLAN: Due to lack of updated imaging, we will obtain a lumbar x-ray with flexion/extension views. Patient did have lumbar RFAs from L2-L5 back in 2018, which the patient states were very helpful. We will re-visit this with a #1 bilateral MBB to L2, L3 and L4, L5. We will gain authorization to hold her Xarelto. She was encouraged to continue with her vitamin regimen as well as use a heat rub with stretches. The patient will be followed up in the office post procedure. Patient agrees to move forward. [facility] Signed and Approved by: ALEJANDRO DECKER . 12/31/2021 16:08:00[facility]05-19-2022 Hospital Discharge instructions Patient Education 12/17/2021 14:18:11 Hypothyroidism Hypothyroidism Hypothyroidism is when the thyroid gland does not make enough of certain hormones (it is underactive). The thyroid gland is a small gland located in the lower front part of the neck, just in front ofthe windpipe (trachea). This gland makes hormones that help control how the body uses food for energy (metabolism) as well as how the heart and brain function. These hormones also play a role in keeping your bones strong. When the thyroid is underactive, it produces too little of the hormones thyroxine (T4) and triiodothyronine (T3). What are the causes? This condition may be caused by: Alexus's disease. This is a disease in which the body's disease-fighting system (immune system) attacks the thyroid gland. This is the most common cause. Viral infections. . Certain medicines. defects. Past radiation treatments to the head or neck for cancer. Past treatment with radioactive iodine. Past exposure to radiation in the environment. Past surgical removal of part or all of the thyroid. Problems with a gland in the center of the brain (pituitary gland). Lack of enough iodine in the diet. What increases the risk? You are more likely to develop this condition if: You are female. You have a family history of thyroid conditions. You use a medicine called lithium. You take medicines that affect the immune system (immunosuppressants). What are the signs or symptoms? Symptoms of this condition include: Feeling as though you have no energy (lethargy). Not being able to tolerate cold. Weight gain that is not explained by a change in diet or exercise habits. Lack of appetite. Dry skin. Coarse hair. Menstrual irregularity. Slowing of thought processes. Constipation. Sadness or depression. How is this diagnosed? This condition may be diagnosed based on: Your symptoms, your medical history, and a physical exam. Blood tests. You may also have imaging tests, such as an ultrasound or MRI. How is this treated? This condition is treated with medicine that replaces the thyroid hormones that your body does not make. After you begin treatment, it may take several weeks for symptoms to go away. Follow these instructions at home: Take mnrf-ntr-xngwahr and prescription medicines only as told by your health care provider. If you start taking any new medicines, tell your health care provider. Keep all follow-up visits as told by your health care provider. This is important. ?As your condition improves, your dosage of thyroid hormone medicine may change. ?You will need to have blood tests regularly so that your health care provider can monitor your condition. Contact a health care provider if: Your symptoms do not get better with treatment. You are taking thyroid replacement medicine and you: ?Sweat a lot. ?Have tremors. ?Feel anxious. ?Lose weight rapidly. ?Cannot tolerate heat. ?Have emotional swings. ?Have diarrhea. ?Feel weak. Get help right away if you have: Chest pain. An irregular heartbeat. A rapid heartbeat. Difficulty breathing. Summary Hypothyroidism is when the thyroid gland does not make enough of certain hormones (it is underactive). When the thyroid is underactive, it produces too little of the hormones thyroxine (T4) and triiodothyronine (T3). The most common cause is Alexus's disease, a disease in which the body's disease-fighting system(immune system) attacks the thyroid gland. The condition can also be caused by viral infections, medicine, , or past radiation treatment to the head or neck. Symptoms may include weight gain, dry skin, constipation, feeling as though you do not have energy,and not being able to tolerate cold. This condition is treated with medicine to replace the thyroid hormones that your body does not make. This information is not intended to replace advice given to you by your health care provider. Make sure you discuss any questions you have with your health care provider. Document Released: 07/18/2006 Document Revised: 06/30/2018 Document Reviewed: 06/28/2018 [employer] Patient Education 2020 [employer]. Follow Up Care 04/10/2021 14:13:26 With:FLYNN ROBERTSFP, RAHUL Prince Address: When: Unknown Comments:see Mammo and Dexa, see referral, see MD curran [facility] [place] 05-02-2022 Evaluation + Plan note Future Appointments Appointment Date:12/25/2021 01:00:00 PM Scheduled Provider: Location:. Appointment Type:BD Bone Density (FT) Appointment Date:12/25/2021 01:30:00 PM Scheduled Provider: Location:.MAMMOGRAM Appointment Type:MA Screen (FT) Appointment Date:05/05/2022 01:00:00 PM Scheduled Provider: Location:[facility] Appointment Type: Medicare Wellness Subsequent Appointment Date:06/18/2022 01:20:00 PM Scheduled Provider:Shyla PRUETT MD, FAAFP Location:[facility] Appointment Type: Open Future Scheduled Tests Radiology* BD Bone Density DEXA 12/25/21 * MA Mamm Screen w/CAD if perf and 3D Brady 12/25/21 Referrals to Other Providers Referred by: Shyla PRUETT MD, FAAFP [facility] [place] 05-02-2022 Evaluation + Plan note Future Appointments Appointment Date:12/25/2021 01:00:00 PM Scheduled Provider: Location:.BD Appointment Type:BD Bone Density () Appointment Date:12/25/2021 01:30:00 PM Scheduled Provider: Location:.M[facility]MOGRAM Appointment Type:MA Screen () Appointment Date:05/05/2022 01:00:00 PM Scheduled Provider: Location:[facility] Appointment Type: Medicare Wellness Subsequent Appointment Date:06/18/2022 01:20:00 PM Scheduled Provider:Shyla PRUETT MD, FAAFP Location:[facility] Appointment Type: Open Future Scheduled Tests Radiology* BD Bone Density DEXA 12/25/21 * MA Mamm Screen w/CAD if perf and 3D Brady 12/25/21 [facility]03-17-2022 NoteCONSULTATION PAIN MANAGEMENT CONSULTATION HISTORY OF PRESENT ILLNESS: This is a pleasant but frail, 76-year-old female returning to the clinic status post #1 bilateral SI joint injection on 09/29/2021 that afforded her 80% relief for three days. Patient states since the injection she has been experiencing headaches, mood swings, flushing and sugars in the low to high 200s. Today, she is complaining of 6/10 pain and presented to the clinic lightheaded, cool, clammy and diaphoretic. Patient is an insulin dependent diabetic and states she did not eat this morning as she was waiting to go out to breakfast with her post appointment. Patient was given juice and crackers at the appointment with resolve. Activities that aggravate her pain are pushing, pulling, prolonged standing, walking, sitting, bending and stairs. She does use Vicks and Voltaren rubs, along with heat that decreases her pain. She is on Xarelto, unable to take oral NSAIDs. She is also on [place] 5/325 b.i.d. and a multivitamin regimen. She denies new motor weakness or pain patterns. Patient's REVIEW OF SYSTEMS / PAST MEDICAL HISTORY / ALLERGIES and IMAGES have been reviewed and they are noted on the chart. PHYSICAL EXAM: VITAL SIGNS: Blood pressure 144/81, heart rate is 70. Temperature is 96.8. She is 5'3 and weighs 251 pounds. GENERAL APPEARANCE: Moderate distress, sitting in the chair. Color is pink. No diaphoresis. FOCUSED EXAM - BACK: Reproduction of patient's spinal axial pain is noted to direct compression along the posterior elements of the facets of L4, L5 bilaterally. Murphy's point tender bilaterally, right greater than left, with referred pain to bilateral hips and groin concordant with sacroiliitis. MUSCULOSKELETAL: Motor is intact, 4/5 bilaterally. Does walk with antalgic gait. Does not use assistive device. NEUROLOGICAL: Radicular sensory is intact. Negative polyneuropathy. IMPRESSION: Bilateral sacroiliitis, diabetes. PLAN: I discussed with the patient regarding the impact of the steroids and her post procedure symptoms. I assured the patient I will discuss with Dr. Fairbanks about proceeding with bilateral RFAs of her SI joints and decreasing the steroid by half or more. Patient is to continue with Vicks, Voltaren rubs with heat. Education was given in regards to correct eating patterns as well as checking her blood sugars daily. Patient does state understanding and agrees with the plan of care. Patient will be followed up post procedure. [facility] Signed and Approved by: ALEJANDRO DECKER . 10/21/2021 08:53:00[facility] Future App[facility]ments Appointment Date:05/05/2022 01:00:00 PM Scheduled Provider: Location:[facility] [place] Appointment Type:FM Medicare Wellness Subsequent Appointment Date:06/18/2022 01:20:00 PM Scheduled Provider:Shyla PRUETT MD, FAAFP Location[facility] [place] [facility] Appointment Date:10/06/2022 01:30:00 PM Scheduled Provider: Location:[facility] Appointment Type:Surgery FT Appointment Date:12/20/2022 01:20:00 PM Scheduled Provider:Shyla PRUETT MD, FAAFP [facility] Open Diagnostic Tests Pending * Urine Culture 09/23/22 Future Scheduled Tests Laboratory* Microalbumin Level U[facility] Appointment Date:12/20/2022 01:20:00 PM Scheduled Provider:Shyla PRUETT MD, FAAFP Location:[facility] Appointment Type: Open Future Scheduled Tests Laboratory* Microalbumin Level Urine 06/18/22 [facility] Evaluation + Plan note Future Appointments Appointment Date:02/04/2023 03:00:00 PM Scheduled Provider:SHAHID Rodriguez Tammy L. Location:[facility] Appointment Type:FM Weight Managment Initial Appointment Date:02/21/2023 01:00:00 PM Scheduled Provider: [facility] Type:FM Medicare Wellness Subsequent Appointment Date:07/04/2023 11:20:00 AM Scheduled Provider:Shyla PRUETT MD, FAAFP [facility] Type: Open Future Scheduled Tests Laboratory* Microalbumin Level Urine 06/18/22 [facility] Evaluation + Plan note Future Appointments Appointment Date:02/21/2023 01:00:00 PM Scheduled Provider: Location:[facility] Appointment Type:FM Medicare Wellness Subsequent Appointment Date:03/04/2023 03:00:00 PM Scheduled Provider:SHAHID Rodriguez Tammy L. Location:[facility] Appointment Type:FM Open Appointment Date:07/04/2023 11:20:00 AM Scheduled Provider:Shyla PRUETT MD, FAAFP [facility] Type:FM Open Future Scheduled Tests Laboratory* Microalbumin Level Urine 06/18/22 [facility] Evaluation + Plan note Future Appointments Appointment Date:02/14/2023 11:20:00 AM Scheduled Provider:Shyla PRUETT MD, FAAFP Location:[facility] Appointment Type:FM Procedure Appointment Date:02/21/2023 01:00:00 PM Scheduled Provider: Location:[facility] Appointment Type:FM Medicare Wellness Subsequent Appointment Date:03/04/2023 03:00:00 PM Scheduled Provider:Gene MAHONEY, RENEE-Yoselin GARCIA Location:[facility] Appointment Type:FM Open Appointment Date:07/04/2023 11:20:00 AM Scheduled Provider:Shyla PRUETT MD, FAAFP Location:[facility] Appointment Type: Open Future Scheduled Tests Laboratory* Microalbumin Level Urine 06/18/22 [facility] Evaluation + Plan note Future Appointments Appointment Date:07/04/2023 11:20:00 AM Scheduled Provider:Shyla PRUETT MD, FAAFP Location:[facility] Appointment Type: Open Future Scheduled Tests Laboratory* Microalbumin Level Urine 06/18/22 [facility] Evaluation + Plan note Future Appointments Appointment Date:04/28/2023 02:40:00 PM Scheduled Provider:Shyla PRUETT MD, FAAFP Location:[facility] Appointment Type:FM Open Appointment Date:07/04/2023 11:20:00 AM Scheduled Provider:Shyla PRUETT MD, FAAFP Location:[facility] Appointment Type: Open Future Scheduled Tests Laboratory* Microalbumin Level Urine 06/18/22 [facility] [place] Evaluation + Plan note Future Appointments Appointment Date:07/04/2023 11:20:00 AM Scheduled Provider:Shyla PRUETT MD, FAAFP Location:[facility] Appointment Type:FM Open Appointment Date:07/26/2023 02:00:00 PM Scheduled Provider: Location:[facility] Appointment Type: Medicare Wellness Subsequent Future Scheduled Tests Laboratory* Microalbumin Level Urine 06/18/22 Radiology* XR Chest 2 Views 04/28/23 * XR Ribs 2 Views Right 04/28/23 [facility] [place] Evaluation + Plan note Future Appointments Appointment Date:07/04/2023 11:20:00 AM Scheduled Provider:Shyla PRUETT MD, FAAFP Location:[facility] [place] Appointment Type:FM Open Appointment Date:07/26/2023 02:00:00 PM Scheduled Provider: Location:[facility] [place] Appointment Type:FM Medicare Wellness Subsequent Future Scheduled Tests Laboratory* Microalbumin Level Urine [facility] Appointment Date:07/26/2023 02:30:00 PM Scheduled Provider: Location:[facility] [place] Appointment Type:FM Medicare Wellness Subsequent [facility] [place] Evaluation + Plan note Future Appointments Appointment Date:07/29/2023 09:20:00 AM Scheduled Provider:Shyla PRUETT MD, FAAFP [facility] App[facility] Type:FM Open Appointment Date:07/26/2024 01:00:00 PM Scheduled Provider: [facility] Type:FM Medicare Wellness Subsequent [facility] [place] Evaluation + Plan note Future Appointments Appointment Date:07/26/2024 01:00:00 PM Scheduled Provider: Location:[facility] [place] Appointment Type:FM Medicare Wellness Subsequent [facility] [place] evaluation note* Diagnosis Ascending aortic aneurysm (HCC) Thoracic aneurysm without mention of rupture Atrial fibrillation, unspecified type (HCC) Hypertension, unspecified type Vitamin D deficiency Unspecified vitamin D deficiency Elevated blood sugar Other abnormal glucose documented in this encounter [facility] 911 Phone: evaluation note* Diagnosis Ascending aortic aneurysm (HCC) Thoracic aneurysm without mention of rupture Atrial fibrillation, unspecified type (HCC) Hypertension, unspecified type Vitamin D deficiency Unspecified vitamin D deficiency Elevated blood sugar Other abnormal glucose documented in this encounter [facility] 911 Phone: evaluation note* Diagnosis SOB (shortness of breath) Shortness of breath LVH (left ventricular hypertrophy) Cardiomegaly Angina, class III (HCC) Other and unspecified angina pectoris Atrial fibrillation, unspecified type (HCC) Vitamin D deficiency Unspecified vitamin D deficiency Lipid screening Screening for lipoid disorders documented in this encounter [facility] 911 Phone: evaluation note* Diagnosis Uveitis Unspecified iridocyclitis Atrial fibrillation, unspecified type (HCC) Hypertension, unspecified type documented in this encounter [facility] 911 Phone: evaluation note* Diagnosis Uveitis Unspecified iridocyclitis Atrial fibrillation, unspecified type (HCC) Hypertension, unspecified type documented in this encounter [facility] 911 Phone: evaluation note* Diagnosis SOB (shortness of breath) Shortness of breath Atrial fibrillation, unspecified type (HCC) Other fatigue Hyperlipidemia, unspecified hyperlipidemia type documented in this encounter [employer] Phone: evaluation note* Diagnosis SOB (shortness of breath) Shortness of breath Atrial fibrillation, unspecified type (HCC) Other fatigue Hyperlipidemia, unspecified hyperlipidemia type Vitamin D deficiency Unspecified vitamin D deficiency documented in this encounter [employer] Phone: evaluation note* Diagnosis SOB (shortness of breath) Shortness of breath Atrial fibrillation, unspecified type (HCC) Other fatigue Hyperlipidemia, unspecified hyperlipidemia type documented in this encounter [facility] Phone: [email or web address] note* Diagnosis Atrial fibrillation, unspecified type (HCC) SOB (shortness of breath) Shortness of breath documented in this encounter [facility] Phone: [email or web address] note* Diagnosis Atrial fibrillation, unspecified type (HCC) SOB (shortness of breath) Shortness of breath Abnormal EKG Nonspecific abnormal electrocardiogram (ECG) (EKG) documented in this encounter [employer] Phone: [email or web address] note* Diagnosis Atrial fibrillation, unspecified type (HCC) Hyperlipidemia, unspecified hyperlipidemia type Pre-op testing Preoperative examination, unspecified documented in this encounter [facility] Phone: [email or web address] note* Diagnosis Atrial fibrillation, unspecified type (HCC) Hyperlipidemia, unspecified hyperlipidemia type Pre-op testing Preoperative examination, unspecified documented in this encounter [facility] Phone: [email or web address] note* Diagnosis Atrial fibrillation, unspecified type (HCC) Hyperlipidemia, unspecified hyperlipidemia type Abnormal EKG Nonspecific abnormal electrocardiogram (ECG) (EKG) Aortic aneurysm without rupture, unspecified portion of aorta (HCC) documented in this encounter [employer] Phone: [email or web address] note* Diagnosis Atrial fibrillation, unspecified type (HCC) documented in this encounter [facility] [employer] Phone: [email or web address] note* Diagnosis Fall, initial encounter- Primary Injury of left shoulder, initial encounter documented in this encounter [facility] [employer] Phone: Hospital course Narrative No data available for this section [facility] Hospital Discharge instructions No [facility] available for [facility] Attachments The following attachments cannot be sent through Care Everywhere. * Humerus Fracture (Congolese) documented in this [facility] Phone: progress note No data available for this section [facility] History of Present Illness * Sreedhar Floyd MD - 03/07/2019 10:38 AM EDT Cath RCA Ok CX Ok LAD 40% LV EF 55% Medical therapy. Pankaj Floyd MD documented in this encounter* Kenisha Gama [facility] - 03/22/2019 12:24 PM EDT Fingerstick INR drawn per clinic protocol. Patient states no visible blood in urine and no black tarry stool. Sylwia missed 6 doses of warfarin 03/01 through 03/06 in preparation for ablation and heart catheterization. Sylwia restarted flecainide 75 mg twice daily on 02/09, dosage was increase to 3 times daily on 02/16/19 and diltiazem 60 mg twice daily was added, then increased to 3 times daily on 02/23/19. Hyzaar was stopped by Dr. Floyd on 02/27/19. Sylwia states her allergies have been flared up, and she started taking cetirizine 10 mg daily about 1 week ago. Sylwia states she got up in the middle of the night Tuesday and hit the wall on the right side of her head and broke her toe on the right side. Sylwia has been taking 2 tylenol every morning and norco at night for increased pain. Sylwia is interested in switching to xarelto and intends to discuss it with Dr. Floyd. Since Nahed's INR is slightly supratherapeutic, possibly due to tylenol, we will have her take warfarin 2 mg x 1 dose, then will continue current weekly warfarin regimen and recheck INR in 4 week(s). Patient acknowledges working in consult agreement with pharmacist as referred by his/her physician. documented in this encounter* Cherie Hartmann RCP - 05/16/2019 7:41 AM EDT Phase II Cardiac Rehab Individualized Treatment Plan-30 Day Patient Name: Nahed Peterson Date of Initial Assessment: 04/18/2019 Diagnosis: STABLE ANGINA PECTORIS Onset Date: 03/07/19 Referring Physician: DR. FLOYD Risk Stratification: MODERATE Session Number: 8 EXERCISE Stages of Change: [] pre-contemplation [x] Action [] Contemplate [] Maintainence [] Prep [] Relapse Exercise Prescription: Mode: [x] TM [x] UBE [x] STP [] EL [x] R Frequency: 3 DAYS PER WEEK Duration: 31-60 MINUTES Intensity: 2.0 - 2.5 METS Plan/Goal: Increase 1-2 levels/week or 1-2 min/week to achieve target HR and RPE 12-16. Progression: INCREASE DURATION PER ABOVE F.I.T.T. Rx PARAMETERS ON AVG OF 5-10 MIN / 1-2 WEEKS FOR THE FIRST 4-6 WEEKS. AFTER 3-4 WEEKS ARE COMPLETED, CONTINUE TO GRADUALLY INCREASE F.I.T. PARAMETERSGRADUALLY UPWARD AT THE ESTABLISHED DURATION ON AVERAGE 0.5-1.0 METS PER 30 DAYS OVER THE COARSE OFREMAINING PROGRAM ESTABLISHED BY PT-CENTERED GOALS AND GUIDELINES. Target HR 78 - 90 [] Angina with Exertion [x] Resistance Training introduce 8-12 bilateral UE and LE progressive resistance exercises at 1-3 sets per lift, on 2-3 non-consecutive days using weights/ RED therabands AND WTS TO 8-24 # for 8-15 reps to progressive overload by increasing resistance once reps progressed to at least 15 reps on at least 2 occasions Hypertension: [x] Yes [] No Resting BP: 160 / 78 Peak Exercise BP: 160 / 78 [] Med change? Intervention: Home Exercise: Type: WALKING Duration: 30-60 MINUTES Frequency: 2-3 DAYS PER WEEK [x] Resistance Training introduce 8-12 bilateral UE and LE progressive resistance exercises at 1-3 sets per lift, on 2-3 non-consecutive days using weights/ RED therabands AND WTS TO 8-24 # for 8-15 reps to progressive overload by increasing resistance once reps progressed to at least 15 reps on at least 2 occasions Education: [x] Equipment [place] [x] Self pulse [x] Proper use weights/therabands [x] S/S to report [x] Low Na Diet [x] Warm up/ Cool down [x] BP Medication [x] RPE Scale [x] Understand BP [x] Ex Safety [x] protein specialist class-Home Exercise Target Goal: -Individual Exercise Plan -Bp<130/80 -Aerobic active 30 + minutes 5-7 days per week Nutrition Stages of Change: [] pre-contemplation [x] Action [] Contemplate [] Maintainence [] Prep [] Relapse Lipids: NO NEW VALUES Diabetes: [x] Yes [] No Random BS: 99 Weight Management: Wt Goal: 1-2 lbs/wk Intervention: [] Dietitian Consult [x] Nurse/Patient Discussion [x] Diet Class [] Referred to Diabetes Education Education: [] S&S hypo/hyperglycemia [x] Low fat/low cholesterol diet [x] Weight loss methods [] Relate Diabetes/CAD [x] Eating heart healthy handout Target Goal: -LDL-C<100 if triglycerides are > 200 -LDL-C < 70 for high risk patients -HbA1c < 7% -BMI < 25 Education Stages of Change: [] pre-contemplation [x] Action [] Contemplate [] Maintainence [] Prep [] Relapse Family support: [x] Yes [] No Tobacco use: [] Yes [x] No Intervention: [] Referred to smoking cessation counselor [] Individual education and counseling [] Tobacco adjunct [] Informed of education class schedule Education: [x] Risk Factors/Modifications [x] Psychological aspects [x] Angina [x] Medications [] CHF [x] Cardiac A&P Target Goal: -Complete cessation of tobacco use (if applicable) -Continued risk factor modifications -Recognizing signs/symptoms to report -Proper use of meds Psychosocial Stages of Change: [] pre-contemplation [x] Action [] Contemplate [] Maintainence [] Prep [] Relapse Intervention: [] Psych Consult/social service coordinator [x] Uses stress management skills [] Physician Referral [x] Stress management class [] Med Change? Education: [x] Coping Techniques [x] Relaxation techniques [x] S/S of Depression Target Goal: -Assess presence or absence of depression using a valid screening tool. -Maximize coping skills. -Positive support system. Preventative Medication: [] Aspirin [x] Beta Blockade [x] Statin or other lipid lowering agent [] Clopidogrel [x] TRACY Inhibitor [] Other anticoagulation medications Fall Risk assess: [x] Yes [] No / REMAINS LOW RISK Assistive Device: [] Cane [] Walker [] Wheel Chair [] Gait belt Patient/Program goal: WANT TO BE STRONGER SO I CAN DO SOMETHING, AND I WANT TO LOSE WEIGHT - increased stamina/strength to 30-50 total exercise by increasing 1-2 level/wk and 1-2 min/wk to achieve THR and RPE 12-16 / INCREASE AVG CARDIO FC BY AT LEAST 0.5-1.0 MET IN THE NEXT 30DAYS AND TOLERATE >31-45 MIN W/IN EX RX TARGETS / MEETING GOAL / AVG FC INCREASED TO 2.0 METS / CONTINUE TO PROGRESS GOALS WRITTEN OVER THE NEXT 30 DAYS - LOSE 2-4 LB BODY WT IN NEXT 30 DAYS / PT WEIGHT DROPPED TO 230 AND HAS RETURNED BACK TO 235 IN LAST 30 DAYS / CONTINUE TO PROGRESS GOALS WRITTEN OVER THE NEXT 30 DAYS - Introduce 8-12 bilateral UE and LE progressive resistance exercises at 1-3 sets per lift, on 2-3 non-consecutive days using weights/ RED therabands AND WTS TO 8-24 # for 10-15 reps to progressive overload by increasing resistance once reps progressed to at least 15 reps on at least 2 occasions / MEETING GOALS / CONTINUE TO PROGRESS GOALS WRITTEN OVER THE NEXT 30 DAYS - MAINTAIN OPTIMAL. BP / INCONSISTENTLY MEETING GOAL / CONTINUE TO PROGRESS GOALS WRITTEN OVER THE NEXT 30 DAYS - Improved cholesterol and Triglycerides / NO NEW VALUES - Develop regular exercise 30 min daily, AT LEAST 3-5 DAYS PER WEEK CONSISTENTLY W/IN THE NEXT 30 DAYS / MEETING GOAL / CONTINUE TO PROGRESS GOALS WRITTEN OVER THE NEXT 30 DAYS - MAINTAIN lower daily fasting blood glucose score to <131 and random after meal scores to <181 at home / MEETING GOAL / CONTINUE TO PROGRESS GOALS WRITTEN OVER THE NEXT 30 DAYS - To reduce self-reported psycho-social feelings of stress in next 30 days / MEETING GOAL / CONTINUE TO PROGRESS GOALS WRITTEN OVER THE NEXT 30 DAYS - To eat at least 2 servings of fruit per day and at least 4-5 servings of vegetables per day / MEETING GOAL / CONTINUE TO PROGRESS GOALS WRITTEN OVER THE NEXT 30 DAYS Physician Changes/Comments: Cardiac Rehab Staff CHERIE HARTMANN RRT documented in this encounter* Pepe Jasmine RN - 06/13/2019 11:00 AM EST Phase II Cardiac Rehab Individualized Treatment Plan-60 Day Patient Name: Nahed Peterson Date of Initial Assessment: 04/18/2019 Diagnosis: STABLE ANGINA PECTORIS Onset Date: 03/07/19 Referring Physician: DR. FLOYD Risk Stratification: MODERATE Session Number: 15 EXERCISE Stages of Change: Mode: [x]? TM [x]? UBE [x]? STP []? EL [x]? R Frequency: 3 DAYS PER WEEK Duration: 31-60 MINUTES Intensity: 2.8 - 3.4 METS Plan/Goal: Increase 1-2 levels/week or 1-2 min/week to achieve target HR and RPE 12-16. Progression: INCREASE DURATION PER ABOVE F.I.T.T. Rx PARAMETERS ON AVG OF 5-10 MIN / 1-2 WEEKS FOR THE FIRST 4-6 WEEKS. AFTER 3-4 WEEKS ARE COMPLETED, CONTINUE TO GRADUALLY INCREASE F.I.T. PARAMETERSGRADUALLY UPWARD AT THE ESTABLISHED DURATION ON AVERAGE 0.5-1.0 METS PER 30 DAYS OVER THE COARSE OFREMAINING PROGRAM ESTABLISHED BY PT-CENTERED GOALS AND GUIDELINES. Target HR 102 - 114 []? Angina with Exertion [x]? Resistance Training PROGRESS 8-12 bilateral UE and LE progressive resistance exercises at 1-3 sets per lift, on 2-3 non-consecutive days using weights/ RED therabands AND WTS TO 5-24 # for 8-15 reps to progressive overload by increasing resistance once reps progressed to at least 15 reps on at least 2 occasions Hypertension: [x] Yes [] No Resting BP: 162/72 Peak Exercise BP: 172/74 [] Med change? NO Intervention: Home Exercise: Type: WALKING Duration: 30-60 MINUTES Frequency: 2-3 DAYS PER WEEK [x]? Resistance Training PROGRESS 8-12 bilateral UE and LE progressive resistance exercises at 1-3 sets per lift, on 2-3 non-consecutive days using weights/ GREEN therabands AND WTS TO 8-24 # for 8-15 reps to progressive overload by increasing resistance once reps progressed to at least 15 reps on at least 2 occasions Education: [x] Equipment [place] [x] Self pulse [x] Proper use weights/therabands [x] S/S to report [x] Low Na Diet [x] Warm up/ Cool down [x] BP Medication [x] RPE Scale [x] Understand BP [x] Ex Safety [x] protein specialist class-Home Exercise Target Goal: -Individual Exercise Plan -Bp<130/80 -Aerobic active 30 + minutes 5-7 days per week Nutrition Stages of Change: [] pre-contemplation [x] Action [] Contemplate [] Maintainence [] Prep [] Relapse Lipids: NO NEW RESULTS [] Med Change? NO Diabetes: [x] Yes [] No Random Bs: 130 HbA1c: RESULTS NOT AVAILIBLE [] Med Change? NO Weight Management: Current Wt 234.2 Wt Goal: 1-2 lbs/wk / LOSS Intervention: [] Dietitian Consult [x] Nurse/Patient Discussion [x] Diet Class [] Referred to Diabetes Education Education: [x] S&S hypo/hyperglycemia [x] Low fat/low cholesterol diet [x] Weight loss methods [x] Relate Diabetes/CAD [x] Eating heart healthy handout Target Goal: -LDL-C<100 if triglycerides are > 200 -LDL-C < 70 for high risk patients -HbA1c < 7% -BMI < 25 Education Stages of Change: [] pre-contemplation [x] Action [] Contemplate [] Maintainence [] Prep [] Relapse Family support: [x] Yes [] No Tobacco use: [] Yes [x] No Intervention: [] Referred to smoking cessation counselor [] Individual education and counseling [] Tobacco adjunct [] Informed of education class schedule Education: [x] Risk Factors/Modifications [x] Psychological aspects [x] Angina [x] Medications [] CHF [x] Cardiac A&P Target Goal: -Complete cessation of tobacco use (if applicable) -Continued risk factor modifications -Recognizing signs/symptoms to report -Proper use of meds Psychosocial Stages of Change: [] pre-contemplation [x] Action [] Contemplate [] Maintainence [] Prep [] Relapse Intervention: [] Psych Consult/social service coordinator [x] Uses stress management skills [] Physician Referral [x] Stress management class [] Med Change? Education: [x] Coping Techniques [x] Relaxation techniques [x] S/S of Depression Target Goal: -Assess presence or absence of depression using a valid screening tool. -Maximize coping skills. -Positive support system. Preventative Medication: [] Aspirin [x] Beta Blockade [x] Statin or other lipid lowering agent [] Clopidogrel [x] TRACY Inhibitor [] Other anticoagulation medications Fall Risk assess: [x] Yes [] No / REMAINS LOW RISK Assistive Device: [] Cane [] Walker [] Wheel Chair [] Gait belt Patient/Program goal: WANT TO BE STRONGER SO I CAN DO SOMETHING, AND I WANT TO LOSE WEIGHT / SELF- REPORTS SOME STRONGER NOW BUT NO WT LOSS TO-DATE / NOT MEETING--REINFORCE GOAL AND CONTINUE LIFESTYLE EDUCATION / COUNSELING - increased stamina/strength to 30-50 total exercise by increasing 1-2 level/wk and 1-2 min/wk to achieve THR and RPE 12-16 / INCREASE AVG CARDIO FC BY AT LEAST 0.5-1.0 MET IN THE NEXT 30DAYS AND TOLERATE >31-45 MIN W/IN EX RX TARGETS / MEETING GOAL / AVG FC INCREASED FROM 2.0 METS TO 2.8 METS / CONTINUE TO PROGRESS GOALS WRITTEN OVER THE NEXT 30 DAYS - LOSE 2-4 LB BODY WT IN NEXT 30 DAYS / NO WT LOSS TO-DATE / NOT MEETING--REINFORCE GOAL AND CONTINUE LIFESTYLE EDUCATION / COUNSELING - PROGRESS 8-12 bilateral UE and LE progressive resistance exercises at 1-3 sets per lift, on 2-3 non-consecutive days using weights/ GREEN therabands AND WTS TO 5-24 # for 10-15 reps to progressive overload by increasing resistance once reps progressed to at least 15 reps on at least 2 occasions /MEETING GOALS / CONTINUE TO PROGRESS GOALS WRITTEN OVER THE NEXT 30 DAYS - ACHIEVE OPTIMAL. BP / NOT MEETING--REINFORCE GOAL AND CONTINUE LIFESTYLE EDUCATION / COUNSELING - Improved cholesterol and Triglycerides / NO NEW VALUES - Develop regular exercise 30 min daily, AT LEAST 3-5 DAYS PER WEEK CONSISTENTLY W/IN THE NEXT 30 DAYS /INCONSISTENTLY MEETING GOAL / NOT MEETING--REINFORCE GOAL AND CONTINUE LIFESTYLE EDUCATION / COUNSELING - MAINTAIN lower daily fasting blood glucose score to <131 and random after meal scores to <181 at home / MEETING GOAL / CONTINUE TO PROGRESS GOALS WRITTEN OVER THE NEXT 30 DAYS - To reduce self-reported psycho-social feelings of stress in next 30 days / MEETING GOAL / CONTINUE TO PROGRESS GOALS WRITTEN OVER THE NEXT 30 DAYS - To eat at least 2 servings of fruit per day and at least 4-5 servings of vegetables per day / MEETING GOAL / CONTINUE TO PROGRESS GOALS WRITTEN OVER THE NEXT 30 DAYS Physician Changes/Comments: Cardiac Rehab Staff: PEPE JASMINE RN, CEP documented in this encounter* Cherie Hartmann RCP - 04/18/2019 12:53 PM EDT Phase II Cardiac Rehab Individualized Treatment Plan-Initial Patient Name: Nahed Peterson Date of Initial Assessment: 04/18/2019 Diagnosis: STABLE ANGINA PECTORIS Onset Date: 03/07/19 Referring Physician: DR. FLOYD Risk Stratification: MODERATE Session Number: 1 EXERCISE Stages of Change: [] pre-contemplation [x] Action [] Contemplate [] Maintainence [x] Prep [] Relapse Exercise Prescription: Mode: [x] TM [x] UBE [x] STP [] EL [x] R Frequency: 3 DAYS PER WEEK Duration: 31-60 MINUTES Intensity: 2.0 - 3.0 METS Target HR 78-90 Plan/Goal: Increase 1-2 levels/week or 1-2 min/week to achieve target HR and RPE 12-16. [] Angina with Exertion THR: [x] Resistance Training introduce 8-12 bilateral UE and LE progressive resistance exercises at 1-3 sets per lift, on 2-3 non-consecutive days using weights/ RED therabands AND WTS TO 8-24 # for 8-15 reps to progressive overload by increasing resistance once reps progressed to at least 15 reps on at least 2 occasions Hypertension: [x] Yes [] No Resting BP: 150/76 Peak Exercise BP: 164/76 BP Meds: 25 MG COREG, 60 MG CARDIZEM Intervention: Home Exercise: Type: WALKING Duration: 30 - 60 MINUTES Frequency: 2-3 DAYS PER WEEK [x] Resistance Training introduce 8-12 bilateral UE and LE progressive resistance exercises at 1-3 sets per lift, on 2-3 non-consecutive days using weights/ RED therabands AND WTS TO 8-24 # for 8-15 reps to progressive overload by increasing resistance once reps progressed to at least 15 reps on at least 2 occasions Education: [x] Equipment [place] [x] Self pulse [x] Proper use weights/therabands [x] S/S to report [x] Low Na Diet [x] Warm up/ Cool down [x] BP Medication [x]RPE Scale [x] Understand BP [x] Ex Safety [x] protein specialist class-Home Exercise Target Goal: -Individual Exercise Plan -BP<130/80 -Aerobic active 30 + minutes 5-7 days per week Nutrition Stages of Change: [] pre-contemplation [x] Action [] Contemplate [] Maintainence [x] Prep [] Relapse Lipids: Total Cholesterol: 264 Triglycerides: 238 HDL: 71 LDL: 141 Lipid Meds: CRESTOR 10 MG Diabetes: [x] Yes [] No FBS: 136 HbA1c: RESULTS NOT AVAILIBLE Diabetes Medication: [x] Monitor BS at home Frequency?: DAILY Weight Management: Weight:235 LB Height: 64 IN BMI: 40.3 Wt Goal: 1-2 lbs/wk Alcohol: Social History Substance and Sexual Activity Alcohol Use Yes Comment: occ Diet Assessment Tool: RATE MY PLATE 50 Special Diet: Special Diet: 2,000 Kcal / day, 2 GM Na+, 30% total fat, <10% saturated fat, 25-35GM fiber, cholesterol reduced, balanced nutrition plan to be promoted and taught in rehab Intervention: [] Dietitian Consult [x] Nurse/Patient Discussion [x] Diet Class [] Referred to Diabetes Education Education: [] S&S hypo/hyperglycemia [x] Low fat/low cholesterol diet [x] Weight loss methods [] Relate Diabetes/CAD [x] Eating heart healthy handout Target Goal: -LDL-C<100 if triglycerides are > 200 -LDL-C < 70 for high risk patients -HbA1c < 7% -BMI < 25 Education Stages of Change: [] pre-contemplation [x] Action [] Contemplate [] Maintainence [x] Prep [] Relapse Learning Barriers: [] Speech [] Cognitive [] Literacy [] Visions [] Hearing [x] Ready Learn Knowledge test score: 100% Family support: [x] Yes [] No Tobacco use: Social History Tobacco Use Smoking Status Never Smoker Smokeless Tobacco Never Used Intervention: [] Referred to smoking cessation counselor [] Individual education and counseling [] Tobacco adjunct [] Informed of education class schedule Education: [x] Risk Factors/Modifications [x] Psychological aspects [x] Angina [x] Medications [] CHF [x] Cardiac A&P Target Goal: -Complete cessation of tobacco use (if applicable) -Continued risk factor modifications -Recognizing signs/symptoms to report -Proper use of meds Psychosocial Stages of Change: [] pre-contemplation [x] Action [] Contemplate [] Maintainence [x] Prep [] Relapse Psychosocial Test: Tool Used: Efrain Quality of Life Score: NOT YET COMPLETED Depression screening score PHQ-9: 13 * REFERRAL MADE TO BOOK AGENT Intervention: [] Psych Consult/social service coordinator [x] Uses stress management skills [] Physician Referral [x] Stress management class Medications: Education: [x] Coping Techniques [x] Relaxation techniques [x] S/S of Depression Target Goal: -Assess presence or absence of depression using a valid screening tool. -Maximize coping skills. -Positive support system. Preventative Medication: [] Aspirin [x] Beta Blockade [x] Statin or other lipid lowering agent [] Clopidogrel [x] TRACY Inhibitor [] Other anticoagulation medications Fall Risk assess: [x] Yes [] No / LOW FALL RISK Assistive Device: [] Cane [] Walker [] Wheel Chair [] Gait belt Patient/Program goal: WANT TO BE STRONGER SO I CAN DO SOMETHING, AND I WANT TO LOSE WEIGHT - increased stamina/strength to 30-50 total exercise by increasing 1-2 level/wk and 1-2 min/wk to achieve THR and RPE 12-16 / INCREASE AVG CARDIO FC BY AT LEAST 0.5-1.0 MET IN THE NEXT 30DAYS AND TOLERATE >31-45 MIN W/IN EX RX TARGETS - LOSE 2-4 LB BODY WT IN NEXT 30 DAYS - Introduce 8-12 bilateral UE and LE progressive resistance exercises at 1-3 sets per lift, on 2-3 non-consecutive days using weights/ RED therabands AND WTS TO 8-24 # for 10-15 reps to progressive overload by increasing resistance once reps progressed to at least 15 reps on at least 2 occasions - MAINTAIN OPTIMAL. BP - Improved cholesterol and Triglycerides - Develop regular exercise 30 min daily, AT LEAST 3-5 DAYS PER WEEK CONSISTENTLY W/IN THE NEXT 30 DAYS - MAINTAIN lower daily fasting blood glucose score to <131 and random after meal scores to <181 at home - To reduce self-reported psycho-social feelings of stress in next 30 days - To eat at least 2 servings of fruit per day and at least 4-5 servings of vegetables per day Physician Changes/Comments: Cardiac Rehab Staff CHERIE HARTMANN RRT documented in this encounter* Pepe Jasmine RN - 04/17/2019 12:43 PM EDT Cardiac Rehabilitation Physician Order Form Nahed Peterson 1945 [id number] 04/17/2019 [x] Phase 2 ECG Monitored Cardiac Rehabilitation [] [place] [] PTCA with/without stents [] CABG [] Heart Valve Repair/Replaced [x] Stable Angina [] Other: Onset Date: 03/07/19 Cardiac Education Goals: (see individualized treatment plan for specific goals, progression & compliance) [x] Hypertension [x] Physical Inactivity [x] A & P [] Smoking [x] Coping/Depression [x] Medications [] Diabetes [x] Obesity [x] Angina [x] Hyperlipidemia [x] Stress [x] Home Exercise Prescribed Exercise Plan: Target Hr: 78 - 84 Duration: 31 - 60 Minutes Frequency: 3 Days per week Initial Met Level: 1.8 - 2.4 Limitations: [x] Back Pain Where? LOWER BACK LOWER BACK CHRONIC-INTERMITTENT ACHE [x] Joint discomfort Where? RT HIP CHRONIC-INTERMITTENT ACHE-THROB PAIN Modalities: [x]Treadmill [x] UBE [x] Seated Stepper [x] Rowing Machine [x] Weights/therabands [] Elliptical Aerobic exercise to total 31-60 minutes. Progressing by 1-2 minutes per week and/or 1-2 levels per week per patient tolerance using various modalities; according to Sandi Scale 12-16 and THR Introduce 8-12 bilateral UE and LE progressive resistance exercises at 1-3 sets per lift, on 2-3 non-consecutive days using weights/ RED therabands AND WTS TO 8-24 # for 8-15 reps to progressive overload by increasing resistance once reps progressed to at least 15 reps on at least 2 occasions Per patient symptoms use: Appropriate ACLS Algorhythm for Cardiac Events. Nitroglycerine 0.4mg SLq 5mins X 3 for angina pain. 12 lead EKG for c/o chest pain or change in rhythm. Nasal O2 for SaO2 <90% or symptoms warranted. Blood sugar monitoring for Hyper/Hypoglycemia symptoms. * Pepe Jasmine RN - 04/17/2019 11:16 AM EDT Cardiac Rehab Initial History and Assessment Nahed Peterson 1945 [id number] 04/17/2019 Primary Diagnosis: STABLE ANGINA PECTORIS W/ 03/07/19 ONSET Living Will: [] Yes [x] No On File: [] Yes [] No [x] N/A Durable Power of Hard Metals Engraver Hand: [] Yes [x] No +++REFUSING BOOK AGENT CONSULT AT THIS TIME Medical History Past Medical History: Diagnosis Date Atrial fibrillation (HCC) Bronchitis CAD (coronary artery disease) Diabetes mellitus (HCC) Hyperlipidemia Hypertension Pneumonia Thyroid disease Past Surgical History: Procedure Laterality Date ANKLE SURGERY Right plate inserted then removed - fractured APPENDECTOMY 1960 CARDIAC CATHETERIZATION CARDIAC CATHETERIZATION Left 03/07/2019 Dr. Floyd @ [facility] CARPAL TUNNEL RELEASE CATARACT REMOVAL Bilateral FOOT SURGERY HYSTERECTOMY 1987 LYMPH NODE BIOPSY exploratory NERVE SURGERY Right right arm - removed SHOULDER ARTHROSCOPY Bilateral TUBAL LIGATION Family History Family History Problem Relation Age of Onset Heart Disease Mother Symptoms: 1. Angina [] None [] Tightness [x] Shortness of Breath [] Pressure [x] LOSS OF ENERGY [x] Fluttering / Pounding [] Pallor [] FATIGUE [] Sweaty Where was discomfort located? POUNDING MID-CHEST Precipitating Factors? INSIDIOUS Relieved by: INSIDIOUS 2. Arrhythmia [] None [x] Irregular Beats (skips) [] Pacer [x] Atrial Fibrillation [] AICD On any Medications? COREG 12.5 MG, BID / CARDIZEM 60 MG, T.I.D. / FLECAINIDE 100 MG, QD 3. Congestive Heart Failure [x] None [] Pedal Edema [] Unusual weight gain [] SOB with mild exertion [] Fatigue 4. Vascular [x] None [] Carotid Narrowing [] R [] L [] Peripheral claudication [] R [] L 5. Musculoskeletal [] None [x] Back Pain Where? LOWER BACK LOWER BACK CHRONIC-INTERMITTENT ACHE [x] Joint discomfort Where? RT HIP CHRONIC-INTERMITTENT ACHE-THROB PAIN Socio-Economic Marital Status: Nutrition Appetite: [x] Too Good [] Good [] Poor Diet: Eating out 3-4 times/wk Alcohol Consumption: [x] Yes [] No Type:WINE Frequency: OCC SOCIAL OCCASIONS Caffeine: [x] Yes [] No Type: DIET COKE Amount:2 BOTTLES PER DAY Water intake per day: 3 X 30 OZ PER DAY Vitamins/Natural herbal products: YES--SEE M.A.R. Psychological [] Depression [] Tearful [] Fearful [x] Cheerful [] Anxious [x] Motivated [] Overwhelmed Treatment: NONE Diabetes [x] Yes [] No How long: LONG TIME Latest BS:88 Frequency of Checks: 1 TO 4 TIMES PER DAY Medication: Stress Source: A LOT OF THINGS Relaxation techniques: COLORING Hobbies: NONE Level of Education [] 8th Grade [] Associates [] Masters [] High School [] Bachelor [x] Other:[employer] Depression Screening: . Cardiac Rehab Pre - Test 1. The heart is a muscle that acts like a pump to deliver oxygen and blood to the rest of the body. [] True [x] False 2. Healing from the damage of a heart attach is complete in two weeks. [] True [x] False 3. Smoking has no direct effect on the heart - it only effects your lungs. [] True [x] False 4. Using all the salt you want is acceptable for all heart patients. [] True [] False 5. Chest pain that is relieved by rest or nitroglycerine is called Angina. [] True [x] False 6. Shortness of breath, indigestion, sweating, tightness or pain in your chest are symptoms of a heart attack. [x] True [] False 7. Swelling of the feet and ankles only means you've been on your feet too much. [] True [x] False 8. Saturated fats raised your blood cholesterol level more than anything else in your diet. [x] True [] False 9. High Blood pressure can take care of itself by rest alone. [] True [x] False 10. Walking is one of the best exercises for heart attack patients. [x] True [] False SCORE: 100% Physical Findings Weight:235 LB Height: 64 IN BMI: 40.3 Cardiovascular- No edema, S1-S2 and apically regular to auscultation, strong bilateral upper and lower extremity pulses at +2, no carotid bruits. Monitor rhythm-SINUS RHYTHM W/ 1ST DEGREE ATRIO-VENTRICULAR BLOCK VR- 70 MO- 0.24 QRS- 0.10 QT- 0.46 Pulmonary- Clear to auscultation bilaterally through out. Neurological- No deficit noted or reported, EXCEPT FOR TRIGEMINAL NERVE, LEFT- SIDE HEAD NEUROPATHY PER DR. FLOYD NOTE Peripheral Vascular- No deficit noted or reported. Muscular Skeletal- [x] Back Pain Where? LOWER BACK LOWER BACK CHRONIC- INTERMITTENT ACHE [x] Joint discomfort Where? RT HIP CHRONIC-INTERMITTENT ACHE-THROB PAIN . Pain Assessment-DENIES AT PRESENT Pain Level Tolerable <4+/10 on 10 point Likert scale Location/ radiation/ Frequency/ Duration- [x] Back Pain Where? LOWER BACK LOWER BACK CHRONIC-INTERMITTENT ACHE [x] Joint discomfort Where? RT HIP CHRONIC-INTERMITTENT ACHE-THROB PAIN Endocrine- No deficit noted or reported; EXCEPT IS DIABETIC Gastrointestinal- No deficit noted or reported. Genitourinary- No deficit noted or reported. Physical limitations- only as per above Goals: WANT TO BE STRONGER SO I CAN DO SOMETHING, AND I WANT TO LOSE WEIGHT - increased stamina/strength to 30-50 total exercise by increasing 1-2 level/wk and 1-2 min/wk to achieve THR and RPE 12-16 / INCREASE AVG CARDIO FC BY AT LEAST 0.5-1.0 MET IN THE NEXT 30DAYS AND TOLERATE >31-45 MIN W/IN EX RX TARGETS - LOSE 2-4 LB BODY WT IN NEXT 30 DAYS - Introduce 8-12 bilateral UE and LE progressive resistance exercises at 1-3 sets per lift, on 2-3 non-consecutive days using weights/ RED therabands AND WTS TO 8-24 # for 10-15 reps to progressive overload by increasing resistance once reps progressed to at least 15 reps on at least 2 occasions - MAINTAIN OPTIMAL. BP - Improved cholesterol and Triglycerides - Develop regular exercise 30 min daily, AT LEAST 3-5 DAYS PER WEEK CONSISTENTLY W/IN THE NEXT 30 DAYS - MAINTAIN lower daily fasting blood glucose score to <131 and random after meal scores to <181 at home - To reduce self-reported psycho-social feelings of stress in next 30 days - To eat at least 2 servings of fruit per day and at least 4-5 servings of vegetables per day PEPE JASMINE RN, CEP documented in this encounter Advance Directives No Advanced Directives Records FoundDocuments on File Type Date Recorded Patient Proofer Expl anation Advance Directives and Livin g Will 03/07/2019 8:48 AM Latest Code Status on File Code Status Date Activated Date Inactivated Comments Full Code 03/07/2019 9:01 AM Documents on File Type Date Recorded Patient Proofer Expl anation Advance Directives and Living Will Power of Hard Metals Engraver Hand Documents on File Type Date Recorded Patient Proofer Expl anation Advance Directives and Living Will Power of Hard Metals Engraver Hand Documents on File Type Date Recorded Patient Proofer Expl anation ACP-Advance Directive ACP-Power of Hard Metals Engraver Hand Documents on File Type Date Recorded Patient Proofer Expl anation ACP-Advance Directive ACP-Power of Hard Metals Engraver Hand Documents on File Type Date Recorded Patient Proofer Expl anation Advance Directives and Livin g Will 03/07/2019 8:48 AM Latest Code Status on File Code Status Date Activated Date Inactivated Comments Full Code 03/07/2019 9:01 AM Assessments Diagnosis Atrial fibrillation, unspecified type (HCC) Hypertension, unspecified type Diagnosis pricing strategist (current) use of anticoagulants Long-term (current) use of anticoagulants Diagnosis Nocturia Urge incontinence Vaginal itching Pruritus of genital organs Diagnosis Atrial fibrillation, unspecified type (HCC) Hypertension, unspecified type Elevated blood sugar Other abnormal glucose Diagnosis Microscopic hematuria Diagnosis Atrial fibrillation, unspecified type (HCC) Diagnosis Urge incontinence Pelvic pain Diagnosis SOB (shortness of breath) Shortness of breath LVH (left ventricular hypertrophy) Cardiomegaly Angina, class III (HCC) Other and unspecified angina pectoris Diagnosis SOB (shortness of breath) Shortness of breath Diagnosis Atrial fibrillation, unspecified type (HCC) Hypertension, unspecified type Elevated blood sugar Other abnormal glucose Vitamin D deficiency Unspecified vitamin D deficiency Diagnosis Dizziness Dizziness and giddiness Diagnosis Ascending aortic aneurysm (HCC) Thoracic aneurysm without mention of rupture Diagnosis Atrial fibrillation, unspecified type (HCC) Hypertension, unspecified type Elevated blood sugar Other abnormal glucose Diagnosis Dizziness- Primary Dizziness and giddiness Anemia of unknown etiology Anemia, unspecified Diagnosis SOB (shortness of breath) Shortness of breath Diagnosis SOB (shortness of breath) Shortness of breath LVH (left ventricular hypertrophy) Cardiomegaly Diagnosis Microscopic hematuria Diagnosis SOB (shortness of breath) Shortness of breath Discharge Instructions * Patient Instructions* Kenisha Gama RPH - 03/22/2019 11:25 AM EDT Take lower dosage today, then continue current dose of warfarin as instructed on dosing calendar provided. Continue to monitor urine and stool for signs and symptoms of bleeding. Please notify the clinic of any medication changes. Please remember to bring all medications (both prescription and OTC) to your next visit. Kindly notify the clinic if you are unable to make to your next appointment. documented in this encounter* Instructions* Pavan Alejandre DO - 09/23/2020 Get blood rechecked for anemia October 01. Follow up with PCP for diabetic concerns (over 300) and anemia * Attachments The following attachments cannot be sent through Care Everywhere. * Dizziness (Congolese) * Anemia (Congolese) documented in this encounter Reason for Referral Status Reason Specialty Diagnoses / Procedures Referre d By Contact Referred To Contact Open Cardiology Diagnoses Atrial fibrillation, unspecified type (HCC) Hypertension, unspecified type Elevated blood sugar Procedures EKG 12 Lead Pankaj Floyd MD [address] [place] [address] Status Reason Specialty Diagnoses / Procedures Referre d By Contact Referred To Contact Open Cardiology Diagnoses Atrial fibrillation, unspecified type (HCC) Procedures EKG 12 Lead Pankaj Floyd MD [address] [place] [address] Status Reason Specialty Diagnoses / Procedures Referred By Contact Referred To Contact Pending Review Cardiology Diagnoses SOB (shortness of breath) LVH (left ventricular hypertrophy) Angina, class III (HCC) Procedures EKG 12 Lead Pankaj Floyd MD [address] [place] [address] Status Reason Specialty Diagnoses / Procedures Referre d By Contact Referred To Contact Open Cardiology Diagnoses SOB (shortness of breath) Procedures EKG 12 Lead Pankaj Floyd MD [address] [place] [address] Status Reason Specialty Diagnoses / Procedures Referre d By Contact Referred To Contact Closed Radiology Diagnoses Ascending aortic aneurysm (HCC) Procedures CTA CHEST W CONTRAST Pankaj Floyd MD [address] [place] [address] Scan [address] [place] [address] Status Reason Specialty Diagnoses / Procedures Referre d By Contact Referred To Contact Closed Cardiology Diagnoses SOB (shortness of breath) LVH (left ventricular hypertrophy) Procedures ECHO Complete 2D W Doppler W Color Pankaj Floyd MD [address] [place] [address] Status Reason Specialty Diagnoses / Procedures Re ferred By Contact Referred To Contact Closed Radiology Diagnoses Microscopic hematuria Procedures CT 3D RECONSTRUCTION Nicole Bo, BANANA ROOM CUTTER - ORCHID SUPERINTENDENT [address] [place] [address] Status Reason Specialty Diagnoses / Procedures Referre d By Contact Referred To Contact Closed Radiology Diagnoses Microscopic hematuria Procedures CT UROGRAM Nicole Bo, BANANA ROOM CUTTER - ORCHID SUPERINTENDENT [address] [place] [address] Scan [address] [place] [address] Status Reason Specialty Diagnoses / Procedures Re ferred By Contact Referred To Contact Open Diagnoses SOB (shortness of breath) Procedures Full PFT Study With Bronchodilator Pankaj Floyd MD [address] [place] [address] Status Reason Specialty Diagnoses / Procedures Referred By Contact Referred To Contact Pending Review Cardiology Diagnoses Ascending aortic aneurysm (HCC) Atrial fibrillation, unspecified type (HCC) Hypertension, unspecified type Vitamin D deficiency Elevated blood sugar Procedures EKG 12 Lead Pankaj Floyd MD [address] [place] [address] Specialty Diagnoses / Procedures Referred By Contac t Referred To Contact Cardiology Diagnoses SOB (shortness of breath) Atrial fibrillation, unspecified type (HCC) Other fatigue Hyperlipidemia, unspecified hyperlipidemia type Procedures EKG 12 Lead Pankaj Floyd MD [address] [place] [id number] Referral ID Status Reason Start Date Expiration Date Visits Re quested Visits Authorized [id number] Open 02/25/2022 02/25/2023 1 1 Specialty Diagnoses / Procedures Referred By Contac t Referred To Contact Cardiology Diagnoses Atrial fibrillation, unspecified type (HCC) SOB (shortness of breath) I48.91 (ICD-10-CM) - Atrial fibrillation, unspecified type (HCC) Procedures ECHO Complete 2D W Doppler W Color MO ECHO HEART XTHORACIC,COMPLETE W DOPPLER [id number] - MO ECHO HEART XTHORACIC,COMPLETE W DOPPLER Pankaj Floyd MD [address] [place] [id number] Referral ID Status Reason Start Date Expiration Date Visits Re quested Visits Authorized [id number] Closed 03/01/2022 03/31/2022 1 1 Specialty Diagnoses / Procedures Referred By Contac t Referred To Contact Cardiology Diagnoses Atrial fibrillation, unspecified type (HCC) SOB (shortness of breath) Abnormal EKG I48.91 (ICD-10-CM) - Atrial fibrillation, unspecified type (HCC) Procedures Stress test, lexiscan CHG MYOCARDIAL SPECT MULTIPLE STUDIES [id number] - CHG MYOCARDIAL SPECT MULTIPLE STUDIES Pankaj Flyod MD [address] [place] [id number] Referral ID Status Reason Start Date Expiration Date Visits Re quested Visits Authorized [id number] Closed 03/01/2022 03/31/2022 4 4 Specialty Diagnoses / Procedures Referred By Contac t Referred To Contact Cardiology Diagnoses Atrial fibrillation, unspecified type (HCC) Hyperlipidemia, unspecified hyperlipidemia type Pre-op testing Procedures EKG 12 Lead Pankaj Floyd MD [address] [place] [phone] Referral ID Status Reason Start Date Expiration Date Visits Re quested Visits Authorized [id number] Open 04/29/2022 04/29/2023 1 1 Specialty Diagnoses / Procedures Referred By Contac t Referred To Contact Cardiology Diagnoses Atrial fibrillation, unspecified type (HCC) Procedures EKG 12 Lead Pankaj Floyd MD [address] [place] [id number] Referral ID Status Reason Start Date Expiration Date Visits Re quested Visits Authorized [id number] Open 10/27/2022 10/27/2023 1 1 Summary Purpose Family History No Family History Records FoundNo Family History Records FoundNo Family History Records FoundNo Family History Records FoundNo Family History Records FoundNo Family History Records Found No data available for this section No data available for this section No data available for this section No data available for this section No data available for this section No Family History Records Found Additional Source Comments Reason for Visit (unrecogniz ed section and content) Status Reason Specialty Diagnoses / Procedures Referre d By Contact Referred To Contact Diagnoses angina Procedures LEFT HEART CATH Status Reason Specialty Diagnoses / Procedures Re ferred By Contact Referred To Contact Closed Radiology Diagnoses Microscopic hematuria Procedures CT 3D RECONSTRUCTION Nicole Bo BANANA ROOM CUTTER - ORCHID SUPERINTENDENT [address] [place] [address] Status Reason Specialty Diagnoses / Procedures Referre d By Contact Referred To Contact Closed Radiology Diagnoses Dizziness Procedures MRI BRAIN W WO CONTRAST MRI BRAIN W CONTRAST HC MRI-BRAIN W CONTRAST MO MRI BRAIN CONTRAST MO MRI BRAIN COMBO Pankaj Floyd MD [address] [place] [address] Status Reason Specialty Diagnoses / Procedures Referre d By Contact Referred To Contact Closed Radiology Diagnoses Ascending aortic aneurysm (HCC) Procedures CTA CHEST W CONTRAST Pankaj Floyd MD [address] [place] [address] [place] [address] Reason Comments Dizziness pt states she was di zzy tonight with blurred vision. Status Reason Specialty Diagnoses / Procedures Referre d By Contact Referred To Contact Closed Radiology Diagnoses SOB (shortness of breath) Procedures CTA CHEST W CONTRAST CT Chest W Contrast HC CT CHEST W/ CONTRAST MO CAT SCAN OF CHEST CONTRAST MO CT ANGIO, CHEST (NON-CORON), COMBO, INCL IMG PROC Pankaj Floyd MD [address] [place] [address] Status Reason Specialty Diagnoses / Procedures Referre d By Contact Referred To Contact Closed Cardiology Diagnoses SOB (shortness of breath) LVH (left ventricular hypertrophy) Procedures ECHO Complete 2D W Doppler W Color Pankaj Floyd MD [address] [place] [address] Status Reason Specialty Diagnoses / Procedures Referre d By Contact Referred To Contact Closed Radiology Diagnoses Microscopic hematuria Procedures CT UROGRAM Nicole Bo BANANA ROOM CUTTER - ORCHID SUPERINTENDENT [address] [place] [address] [place] [address] Status Reason Specialty Diagnoses / Procedures Re ferred By Contact Referred To Contact Open Diagnoses SOB (shortness of breath) Procedures Full PFT Study With Bronchodilator Pankaj Floyd MD [address] [place], [place] [id number] Specialty Diagnoses / Procedures Referred By Farrukh shields Referred To Contact [facility] [id number] [place] [address] Referral ID Status Reason Start Date Expiration Date Visits Re quested Visits Authorized [id number] 1 1 Reason Comments Fall Tripped in parking l ot and complains of left shoulder pain. Recent shoulder surgery.Left knee pain minimal. Specialty Diagnoses / Procedures Referred By Farrukh shields Referred To Contact Physical Therapy Diagnoses Fibromyalgia Blanka Contreras [address] [place], [place] [id number] [facility] Physical Therapy [address] [place] [address] Referral ID Status Reason Start Date Expiration Date Visits Re quested Visits Authorized [id number] Open 01/04/2023 01/04/2024 1 1 Sreedhar Floyd MD - 03/06/2019 4:38 PM EDT H&P Notes (unrecognized sect ion and content) Sreedhar Floyd M.D. [facility] [place] [phone] February 23, 2019 Shyla Pruett MD [address] [place] [address], [address] [place] [address] RE: Nahed Peterson : [address] Pruett: CHIEF COMPLAINT: 1. Chest pain. 2. Marked fatigue and shortness of breath consistent with angina. 3. Paroxysmal atrial fibrillation, on flecainide. 4. History of idiopathic cardiomyopathy. HISTORY OF PRESENT ILLNESS: I had the pleasure of seeing Mrs. Peterson in our office on 02/23/2019. She is a 74-year-old female who had been seeing Dr. Valentine in [place] for paroxysmal atrial fibrillation and been on Coumadin, which was well controlled. She is seeing me to monitor her cardiac status. She has had paroxysmal atrial fibrillation for the last 3 to 4 years and was placed on flecainide along with Coumadin and had no documented atrial fibrillation on flecainide. 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 She has never had a myocardial infarction. She had a pericardiocentesis [address] Allen because of a large pericardial effusion. At that time, she had an idiopathic cardiomyopathy; however, she has had full recovery of her LV function. She developed marked fatigue and loss of energy as well as increased dizziness starting in November. She had had no syncopal episodes but had marked dizziness. She also developed chest discomfort and marked loss of energy. I saw her on 01/26/2019, and at that time, we did an EKG that showed prolonged QT interval at 527 milliseconds. In 07/2018, her QTc was 478. I stopped her flecainide, and we also ordered a Lexiscan Cardiolite stress test. She did have chest pain with Lexiscan infusion, but the perfusion scan was largely normal with a small defect in the anterior region secondary to either ischemia or artifact. It was overall a low risk for significant coronary artery disease. She had an echocardiogram in 07/2018 that showed an EF of 50% to 55%, with mild mitral regurgitation and moderate to severe LVH. When we stopped the flecainide, she had a marked increase in her atrial fibrillation. We then restarted her flecainide at 150 mg half a tablet b.i.d. She continued to be fatigued with shortness of breath and chest pain and therefore, I increased it to flecainide half a tablet (75 mg) t.i.d. and brought her back today for reevaluation. Her palpitations are better. She has had 3 episodes of atrial fibrillation since I saw her 2 weeks ago. She continues, however, to have marked fatigue with shortness of breath with exertion with also chest pain and chest discomfort. Her energy level has markedly changed in the last 2 months. Her dizziness is slightly better, but her chest pain has continued. She has had no PND or orthopnea. No pedal edema. No syncope or near syncope. CARDIAC RISK FACTORS: Prior [place]: Negative. Hypertension: Positive. Hyperlipidemia: Positive. Peripheral Vascular Disease: Negative. Smoking: Negative. Other Family Members: Positive. Diabetes: Positive. MEDICATIONS AT HOME: She is currently on vitamin C 500 mg b.i.d., B complex daily, Coreg 25 mg b.i.d., vitamin D 2000 units daily, Cardizem 60 mg b.i.d., flecainide 150 mg half a tablet t.i.d., [place] p.r.n., detemir insulin 42 units nightly, Synthroid 75 mcg daily, Victoza 1.8 mg daily, Hyzaar 100/25 half a tablet daily, multivitamins daily, Slo-Niacin 500 mg daily, fish oil 1200 mg 2 tablets nightly, Crestor 10 mg half a tablet daily, vitamin E daily, Coumadin as directed. PAST MEDICAL HISTORY: 1. Atrial fibrillation found 4 years ago, been on flecainide as well as Coumadin. 2. Insulin-dependent diabetes for many years with a hemoglobin A1c of 9.2. 3. Lumbar back pain with radiculopathy with ablation in 06/2018, with pending ablation on 03/06/2019. 4. Euthyroid, on replacement. 5. Pericardiocentesis 16 years ago. 6. History of depression. 7. Nerves in the right arm removed. 8. Lymph node biopsy. 9. Hysterectomy in 1986. 10. Right ankle surgery with plate inserted and removed due to a fracture. 11. Bilateral shoulder arthroscopic surgery. FAMILY HISTORY: Mother in 05/2018 from CHF. No other heart disease in the family. SOCIAL HISTORY: She is 74 years old, . Four children with a set of twins consisting of a boy and a girl. Oldest child is a boy, youngest child is a boy. 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 Does not smoke or drink alcohol. She has been very inactive over the last several months because of chest pain, shortness of breath, and loss of energy. REVIEW OF SYSTEMS: Cardiac as above. Other systems reviewed including constitutional, eyes, ears, nose and throat, cardiovascular, respiratory, GI, , musculoskeletal, integumentary, neurologic, psychiatric, endocrine, hematologic and allergic/immunologic, are negative except for what is described above. She is still having some dizziness. Her palpitations have decreased since being on 3 times a day of the flecainide. PHYSICAL EXAMINATION: VITAL SIGNS: Her blood pressure was 138/70 with a heart rate of 70 and regular. Respirations 18. O2 saturation was 97%. She weighed 232 pounds. GENERAL: She is a pleasant 74-year-old female. Denied pain. She was oriented to person, place and time. Answered questions appropriately. SKIN: No unusual skin changes. HEENT: The pupils are equally round and intact. Mucous membranes were dry. NECK: No JVD. Good carotid pulses. No carotid bruits. No lymphadenopathy or thyromegaly. CARDIOVASCULAR EXAM: S1 and S2 were normal. No S3 or S4. Soft systolic blowing type murmur. No diastolic murmur. PMI was normal. No lift, thrust, or pericardial friction rub. LUNGS: Quite clear to auscultation and percussion. ABDOMEN: Soft and nontender. Good bowel sounds. EXTREMITIES: Good femoral pulses. Good pedal pulses. No pedal edema. Skin was warm and dry. No calf tenderness. Nail beds pink. Good cap refill. PULSES: Bilateral symmetrical radial, brachial and carotid pulses. No carotid bruits. Good femoral and pedal pulses. NEUROLOGIC EXAM: Within normal limits. PSYCHIATRIC EXAM: Within normal limits, although she was teary-eyed. LABORATORY DATA: Pending. Her blood work on 01/18 showed a sodium of 145, potassium 3.7. ALT was 17, AST was 32. Cholesterol 216 with triglycerides 155, HDL was 67, LDL 118. Hemoglobin A1c 9.6. TSH was 2.150. Magnesium 2.1. BUN of 18, creatinine 0.65. White count 6.3, hemoglobin 13.9, with a platelet count of 279,000. EKG done yesterday showed sinus rhythm with possible old anterior myocardial infarction with a QTc of 444 milliseconds. IMPRESSION: 1. Marked fatigue and loss of energy with chest pain with exertion, all consistent with angina. 2. Low risk Cardiolite stress test on 02/12/2019. 3. History of paroxysmal atrial fibrillation for the last 4 years, controlled with flecainide, on Coumadin. 4. Prolonged QTc when she was on flecainide 150 mg b.i.d., now down to half a tablet or 75 mg t.i.d., with her QTc at 444 milliseconds. 5. 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 6. EF 50% to 55% on 07/19/2018. 7. Insulin-dependent diabetes, uncontrolled, hemoglobin A1c of 9.6. 8. Hyperlipidemia, on low-dose Crestor. She has myalgias with high doses. 9. Severe back pain status post ablation on 06/29/2018, with repeat ablation pending on 03/06/2019. 10. On Coumadin for paroxysmal atrial fibrillation. 11. Hypertension, somewhat elevated. PLAN: 1. Increase Cardizem to 60 mg t.i.d. 2. Plan on cardiac catheterization on 03/07/2019. DISCUSSION: Mrs. Peterson continues to have chest pain, shortness of breath, and loss of energy. When I first saw her on 01/26/2019, I felt that her symptoms might be due to flecainide toxicity. Her QTc had increased to 526 milliseconds. We stopped her flecainide. However, her fatigue and shortness of breath and chest pain did not change. Her QTc normalized, but she developed marked increase in her atrial fibrillation. With her dose now of flecainide of 75 mg t.i.d., her atrial fibrillation is fairly well controlled. However, she continues to have chest pain, shortness of breath, and loss of energy, all consistent with angina. She is on full medical therapy with beta-clare and calcium channel clare. I think it is reasonable to proceed on with a cardiac catheterization to define her anatomy. She agrees and we will do so on 03/07. Of note, she is getting ablation on her back on 03/06. She will be off Coumadin for the ablation and for my catheterization. Thank you very much for allowing me the privilege of seeing Mrs. Peterson. If you have any questions on my thoughts, please do not hesitate to contact me. Sincerely, SREEDHAR FLOYD documented in this encounter INFORMATION SOURCE (unrecogn ized section and content) DATE CREATED AUTHOR 07/09/2020 Anabel miller DATE CREATED AUTHOR AUTHOR'S ORGANIZ ATION 07/23/2021 [facility] DATE CREATED AUTHOR AUTHOR'S ORGANIZ ATION 05/01/2022 [facility] DATE CREATED AUTHOR AUTHOR'S ORGANIZ ATION 08/26/2022 [facility] DATE CREATED AUTHOR AUTHOR'S ORGANIZ ATION 10/09/2022 [facility] DATE CREATED AUTHOR AUTHOR'S ORGANIZ ATION 01/31/2023 Anabel snider DATE CREATED AUTHOR AUTHOR'S ORGANIZ ATION 07/30/2023 [facility] Ordered Prescriptions (unrec ognized section and content) Prescription Sig Dispensed Refills Start Date End Da te meclizine (ANTIVERT) 25 MG tablet Take 1 tablet by mouth 3 times daily as needed for Dizziness 30 tablet 0 09/23/2020 10/03/2020 Care Teams (unrecognized sec tion and content) Student Services Vice President Relationship Specialty Start Date End Date Shyla Pruett MD [address] [place], [place] [id number] [place]urtado [place] PCP - General Family Medicine 05/31/18 Student Services Vice President Relationship Specialty Start Date End Date Shyla Pruett MD [facility] Moira [place] PCP - General Family Medicine 05/31/18 Student Services Vice President Relationship Specialty Start Date End Date Shyla Pruett MD [facility] CAR[address] PCP - General Family Medicine 05/31/18 Student Services Vice President Relationship Specialty Start Date End Date Shyla Pruett MD [address] CARTER Mike PCP - General Family Medicine 05/31/18 Student Services Vice President Relationship Specialty Start Date End Date Shyla Pruett MD [facility] [address] PCP - General Family Medicine 05/31/18 Student Services Vice President Relationship Specialty Start Date End Date Shyla Pruett MD [address] [place] [address] Dr. [place] PCP - General Family Medicine 05/31/18 Student Services Vice President Relationship Specialty Start Date End Date Shyla Pruett MD [address] [place] [address] Dr. [place], [place] PCP - General Family Medicine 05/31/18 Student Services Vice President Relationship Specialty Start Date End Date Shyla Pruett MD [address] [place] [address] Dr. [place], [place] PCP - General Family Medicine 05/31/18 Student Services Vice President Relationship Specialty Start Date End Date Shyla Pruett MD [address] [place] [address] Dr. [place], [place] PCP - General Family Medicine 05/31/18 Student Services Vice President Relationship Specialty Start Date End Date Shyla Pruett MD [address] [place] [address] Dr. [place], [place] PCP - General Family Medicine 05/31/18 Student Services Vice President Relationship Specialty Start Date End Date Shyla Pruett MD [address] [place] [address] Dr. [place], [place] PCP - General Family Medicine 05/31/18 Student Services Vice President Relationship Specialty Start Date End Date Shyla Pruett MD [address] [place] [address] Dr. [place], [place] PCP - General Family Medicine 05/31/18 Student Services Vice President Relationship Specialty Start Date End Date Shyla Pruett MD [address] [place] [address] Dr. Hurtado, CARTER PCP - General Family Medicine 05/31/18 Student Services Vice President Relationship Specialty Start Date End Date Shyla Pruett MD [address] [place] [address] Dr. Hurtado, CARTER PCP - General Family Medicine 05/31/18 Student Services Vice President Relationship Specialty Start Date End Date Shyla Pruett MD [address] [place] [address] Dr. [place], [place] PCP - General Family Medicine 05/31/18 Student Services Vice President Relationship Specialty Start Date End Date Shyla Pruett MD [address] [place], [place] PCP - General Family Medicine 05/31/18 Student Services Vice President Relationship Specialty Start Date End Date Shyla Pruett MD [address] [place], [place] PCP - General Family Medicine 05/31/18 Scheduled Active and Recently Administ ered Medications (unrecognized section and content) Medication Order 11/03/2022 11/04/2022 11/05/2022 fentaNYL (SUBLIMAZE) injection 100 mcg (COMPLETED) 100 mcg, IntraMUSCular, ONCE, 1 dose, On Tue11/05/22 at 1300, If oral and IV narcotics ordered, use oral first and only use IV if oral is ineffective or cannot take oral. Do Not give oral and IV within 1 hour of each other unless specifically ordered. 1258 (Given - Provid er: Flor Pantoja RN) FOR RECORDS PERTAINING TO PATIENTS WHO ARE OR HAVE BEEN ENROLLED IN A CHEMICAL DEPENDENCY/SUBSTANCEABUSE PROGRAM, SOME INFORMATION MAY BE OMITTED. This clinical summary was aggregated from multiple sources. Caution should be exercised in using it in the provision of clinical care. This summary normalizes information from multiple sources, and as a consequence, information in this document may materially change the coding, format and clinical context of patient data. In addition, data may be omitted in some cases. CLINICAL DECISIONS SHOULD BE BASED ON THE PRIMARY CLINICAL RECORDS. [employer] provides no warranty or guarantee of the accuracy or completeness of information in this document.
[2023-08-09 08:16] VITALS: BP 170/83; PULSE 75; RESP 16; TEMP 36.3; O2SAT 95
[2023-08-09 08:22] LABS: Glucometer 192 mg/dL (74-106)
[2023-08-09] MEDS: 0.9 % SODIUM CHLORIDE 500 ML IV (08:30)
[2023-08-09] MEDS: LIDOCAINE HCL 2% 400 MG/20 ML MDV 10 ML INJ (09:29)
[2023-08-09] MEDS: METHYLPREDNISOLONE ACETATE 40 MG/ML VIAL INJ (09:30)
[2023-08-09] MEDS: BUPIVACAINE HCL 0.25% PF 25 MG/10 ML VIAL 4 ML INJ (09:30)
[2023-08-09 09:32] VITALS: BP 135/76; PULSE 70; RESP 18; TEMP 36.8; O2SAT 99
[2023-08-09 09:36] VITALS: BP 145/68; PULSE 72; RESP 16; O2SAT 98
--- NOTE | 2023-08-09 10:45 | W.PM.PROCNOT ---
Date of procedure: 08/09/23 Pre-op diagnosis: Lumbar Spondylosis Post-op diagnosis: same as pre-op Procedure: Right Lumbar 4/5, 5/S1 Radiofrequency ablation Under fluoroscopic guidance Rhizotomy was created using radio frequency ablation at 80?C for 90 seconds 1 to 2 lesions created at each site. Post lesioning injection of 2 mL each of 0.25% Marcaine and 2% lidocaine with Depo-Medrol 40mg. 0.5 to 1 mL injected at each site IV in place yes If Intravenous fluids: NS at KVO Anesthesia local 2% lidocaine for Anesthesia Other: MAC Timeout process compliant After informed consent obtained.Patient brought to the procedure room placed in the prone position skin overlying the area was prepped and draped in a sterile fashion using betadine. 25 gauge needle was used to create a skin wheal over each of the targeted areas utilizing 2% lidocaine. A rhizotomy needle with a 10 mm active tip was inserted over each of the anesthetized areas and directed towards each of the medial branches accomplished under fluoroscopic guidance. after encountering the same we had positive sensory stimulation, negative motor stimulation was noted. lesions were then created. Post lesioning, steroid solution was injected needles removed. Patient was transferred to recovery room in stable condition to be discharged home after meeting criteria. Anesthesia: MAC Surgeon: Sandip Kaminski Condition: stable
== END 2023-08-09 09:52 | disposition home or self-care (01) ==
LOC: SURGOUT 07:47
PROVIDERS: Visit Provider Anesthesiology Pain Medicine
DX: M47.816 Spondylosis without myelopathy or radiculopathy, lumbar region (principal); E11.9 Type 2 diabetes mellitus without complications
CPT/HCPCS: 36415; 64635; 64636; 82948; J0665; J1030; J2250; J2704

== ENCOUNTER 2023-09-14 14:14 | Outpatient (OUT) | payer MEDICARE, SELFPAY ==
--- NOTE | 2023-09-14 14:53 | PM.CN ---
Consult Note: HPI Data of Consult Patient: known to practice within the last 3 years Requesting Physician: Veronica Rouse NP Primary Care Provider: Non-Staff Physician, MD Consult Narrative Reason for consult: f/u Narrative: Deidra Peterson a pleasant 78 year old female presents for evaluation and management of chronic pain, today pain in low back and right buttock 4/10 sharp burning. Patient noticed 70% ongoing pain relief and functional improvement immediately after left and Right L4/5 L5-S1 thermal RFA. Patient reporting increase in neck pain, 4/10 stabbing ache without radiation, worse with twisting bending activity and weather. Patient reports mild to moderate improvement in pain and functional ability with current medication regimen, without side effects. Patient is still considering a NS evaluation. cc:: CC: Veronica Rouse NP Review of Systems ROS Status of ROS 10 or more systems reviewed and unremarkable except as noted in history and below Musculoskeletal Reports: back pain and neck pain PFSH PFSH Medical History (Updated 07/29/23 @ 09:07 by Dee aKhn) Low back pain ?M54.50 - Low back pain, unspecified (ICD-10) Osteoarthritis ?M19.90 - Unspecified osteoarthritis, unspecified site (ICD-10) Obesity ?E66.9 - Obesity, unspecified (ICD-10) Hypothyroid ?E03.9 - Hypothyroidism, unspecified (ICD-10) Diabetes 1.5, managed as type 2 ?E13.9 - Other specified diabetes mellitus without complications (ICD-10) Sleep apnea ?G47.30 - Sleep apnea, unspecified (ICD-10) Irregular heartbeat ?I49.9 - Cardiac arrhythmia, unspecified (ICD-10) High cholesterol ?E78.00 - Pure hypercholesterolemia, unspecified (ICD-10) Hypertension ?I10 - Essential (primary) hypertension (ICD-10) Surgical History H/O shoulder surgery ?Z98.890 - Other specified postprocedural states (ICD-10) History of ankle surgery ?Z98.890 - Other specified postprocedural states (ICD-10) H/O tubal ligation ?Z98.51 - Tubal ligation status (ICD-10) History of appendectomy ?Z90.49 - Acquired absence of other specified parts of digestive tract (ICD-10) H/O: hysterectomy ?Z90.710 - Acquired absence of both cervix and uterus (ICD-10) History of cataract extraction with lens replacement H/O carpal tunnel repair ?Z98.890 - Other specified postprocedural states (ICD-10) Hx of cholecystectomy ?Z90.49 - Acquired absence of other specified parts of digestive tract (ICD-10) Meds Home Medications and Allergies Home Medications Medication Instructions Recorded Confirmed Type baclofen 10 mg tablet 10 mg PO BID 01/18/23 08/09/23 History carvedilol 25 mg tablet 12 mg PO BID 01/18/23 08/09/23 History diltiazem HCl 60 mg tablet 60 mg PO TID 01/18/23 08/09/23 History duloxetine 30 mg capsule,delayed 60 mg PO DAILY 01/18/23 08/09/23 History release furosemide 20 mg tablet (Lasix) 20 mg PO DAILY 01/18/23 08/09/23 History hydrocodone 5 mg-acetaminophen 325 1 tab PO BID 01/18/23 08/09/23 History mg tablet insulin glargine 100 unit/mL 27 unit subcut BID 01/18/23 08/09/23 History subcutaneous solution (Lantus U-100 Insulin) levothyroxine 75 mcg capsule 75 mcg PO DAILY 01/18/23 08/09/23 History multivitamin 1 tab PO DAILY 01/18/23 08/09/23 History ramipril 5 mg capsule 5 mg PO DAILY 01/18/23 08/09/23 History rivaroxaban 20 mg tablet (Xarelto) 20 mg PO DAILY 01/18/23 08/09/23 History hydrocodone 5 mg-acetaminophen 325 1 tab PO TID PRN pain #90 tabs 03/23/23 08/09/23 Rx mg tablet tirzepatide 2.5 mg/0.5 mL 2.5 mg subcut QWEEK 04/05/23 08/09/23 History subcutaneous pen injector (Mounjaro) cranberry 500 mg capsule 500 mg PO DAILY 04/14/23 08/09/23 History docusate sodium 100 mg capsule 100 mg PO BID 04/14/23 08/09/23 History (Stool Softener) magnesium glycinate 100 mg tablet 100 mg PO DAILY 04/14/23 08/09/23 History mecobalamin (vitamin B12) 1,000 1,000 mcg PO DAILY 04/14/23 08/09/23 History mcg chewable tablet (B12 Active) hydrocodone 5 mg-acetaminophen 325 1 tab PO Q8H PRN pain #90 tabs 06/27/23 08/09/23 Rx mg tablet milk thistle seed extract 140 cap PO 06/29/23 History mg-milk thistle 500 mg capsule baclofen 10 mg tablet 10 mg PO TID PRN muscle spasm #90 07/14/23 08/09/23 Rx tabs hydrocodone 5 mg-acetaminophen 325 1 tab PO Q8H PRN pain #90 tabs 07/14/23 08/09/23 Rx mg tablet hydrocodone 5 mg-acetaminophen 325 1 tab PO Q8H PRN pain #90 tabs 08/19/23 Rx mg tablet hydrocodone 5 mg-acetaminophen 325 1 tab PO Q8H PRN pain #90 tabs 08/24/23 Rx mg tablet hydrocodone 5 mg-acetaminophen 325 1 tab PO TID PRN pain #90 tabs 09/14/23 Rx mg tablet Allergies Allergy/AdvReac Type Severity Reaction Status Date / Time amlodipine Allergy Unknown Verified 07/05/23 08:11 amoxicillin [From Augmentin] Allergy Unknown Verified 07/05/23 08:11 bacitracin Allergy Unknown Verified 07/05/23 08:11 [From Neosporin ([id number])] clavulanic acid Allergy Unknown Verified 07/05/23 08:11 [From Augmentin] dexamethasone [From TobraDex] Allergy Unknown Verified 07/05/23 08:11 fexofenadine [From Jody] Allergy Unknown Verified 07/05/23 08:11 metformin Allergy Unknown Verified 07/05/23 08:11 neomycin Allergy Unknown Verified 07/05/23 08:11 oxybutynin Allergy Unknown Verified 07/05/23 08:11 polymyxin B Allergy Unknown Verified 07/05/23 08:11 [From Neosporin ([id number])] simvastatin [From Zocor] Allergy Unknown Verified 07/05/23 08:11 tobramycin [From TobraDex] Allergy Unknown Verified 07/05/23 08:11 tramadol Allergy Unknown Verified 07/05/23 08:11 Exam Narrative Exam Narrative: patient reports increased weakness and cramping to bilateral legs with activity and stairs. Notices improvement with forward flexion Constitutional Documenting provider has reviewed patient's vital signs: yes Common normals: no apparent distress, oriented x3, healthy appearing, alert and well nourished General appearance: cooperative HENMT Common normals: normocephalic, hearing grossly normal bilaterally and moist oral mucous membranes Head and scalp: normocephalic Eye Common normals: PERRL Pupil: PERRL Neck & C-Spine Common normals: full ROM General: normal visual inspection Cervical spine: pain with cervical ROM Other: negative spurlings pain over bilateral c3-4 c4-5 facets and following dweyer diagram Chest Common normals: inspection of chest normal Respiratory Common normals: normal respiratory effort, no retractions and no use of accessory muscles Back & Pelvis Lumbar spine/lower back: ROM limited, pain with ROM and straight leg raise negative bilaterally Other: facet loading negative no radiculopathy on exam Extremity Common normals: normal to inspection and full ROM Neuro Common normals: oriented x3, CN's II-XII intact bilaterally, moves all extremities, no focal motor deficits, no sensory deficits noted and deep tendon reflexes 2+ bilaterally Sensorium/orientation: alert Motor exam: strength 5/5 throughout and no movement abnormalities noted Psych Common normals: mental status grossly normal, thought process normal, cooperative, affect normal, speech normal and activity/motor behavior normal Speech: normal speech Thought process: normal thought process Results Additional Findings Additional findings: I have checked an [place]AR[place] report on this patient today and there are no aberrancies noted in the prescribing history.?? A drug screen was completed and reviewed within the last year, and if there has not been a drug screen completed we ordered one today to monitor higher risk, state monitored pain medication use. As part of providing excellent, safe, comprehensive care, the following was completed at our patient's visit: 1. A medication reconciliation and review to ensure accurate knowledge of current/active medications, including asking our patients to inform us about any [id number] medications or herbal remedies/nutritional supplements/alternative remedies. 2. A review to specifically ensure our patients have had annual screening for: elevated body mass index (BMI), tobacco use, screening for depression, and screening for unhealthy alcohol use. When screening is concerning, patients are provided with education and the specific recommendation to discuss the concerning health issue and treatment options with their primary care provider. Assessment and Plan Assessment and Plan (1) Lumbar spondylosis: (2) Muscle spasm: (3) Chronic prescription opiate use: (4) Lumbar stenosis with neurogenic claudication: Plan cervical spine xray, consider bilateral C3-4 C4-5 facet blocks in the future. patient would like to defer at this time continue current medication regimen UDS today SCREW MACHINE SETTER reviewed and signed f/u 3 months, sooner if needed
== END 2023-09-14 14:15 | disposition home or self-care (01) ==
PROVIDERS: Visit Provider Nurse Practitioner
DX: M54.2 Cervicalgia (principal); G89.29 Other chronic pain; M47.812 Spondylosis without myelopathy or radiculopathy, cervical region; M47.816 Spondylosis without myelopathy or radiculopathy, lumbar region; M62.838 Other muscle spasm; Z79.891 Long term (current) use of opiate analgesic; M48.062 Spinal stenosis, lumbar region with neurogenic claudication
CPT/HCPCS: 72050; G0463

== ENCOUNTER 2023-09-14 15:06 | Outpatient (OUT) | payer MEDICARE, SELFPAY ==
--- NOTE | 2023-09-14 15:14 | XR_ITS ---
The [address] [address] Patient Name: NAHED BAUMANN MRN: [id number] date: 1945 Sex: F Assigned Patient Location: [facility] Current Patient Location: Accession/Order Number: [id number] Exam Date: 09/14/2023 15:16 Report Date: 09/15/2023 06:52 At the request of: VERNON GIRON Procedure: XR cervical spine 5V EXAMINATION: XR cervical spine 5V HISTORY: chronic neck pain COMPARISON: XR C-spine 01/14/2020 FINDINGS: BONES: Reversal of the normal lordotic curvature C4-C7. No fracture spondylolisthesis. Prominent degenerative endplate osteophytes at C5-6, C6-7. Moderate degenerative facet arthropathy at all cervical levels. DISC SPACES: Marked narrowing C5-6, C6-7. PARASPINOUS: Negative. No paraspinous abnormality is seen. OTHER: Negative. XR/XR cervical spine 5V IMPRESSION: 1. Multilevel degenerative changes, greatest involving the lower cervical spine which are suspected to cause central canal and foramen narrowing. Findings are stable to minimally progressed compared to prior study. Electronically authenticated by: CARLO LAWSON Date: 09/15/2023 06:52
== END 2023-09-14 15:07 | disposition home or self-care (01) ==
LOC: RAD 15:08
PROVIDERS: Visit Provider Nurse Practitioner
DX: M54.2 Cervicalgia (principal); G89.29 Other chronic pain; M47.812 Spondylosis without myelopathy or radiculopathy, cervical region
CPT/HCPCS: 72050

== ENCOUNTER 2023-11-23 11:00 | Outpatient (OUT) | payer MEDICARE, SELFPAY ==
--- NOTE | 2023-11-23 11:46 | P.CN_ITS ---
Consult Note: HPI Data of Consult Patient: known to practice within the last 3 years Requesting Physician: Veronica Rouse NP Primary Care Provider: Non-Staff Physician, MD Consult Narrative Reason for consult: f/u Narrative: Deidra Peterson a pleasant 78 year old female presents for evaluation and management of chronic pain, today pain in low back and right hip 8/10 sharp shooting stinging pain with numbness of right foot. Patient previously reporting significant improvement from right l4-5 l5-s1 facet RFA, however has had two+ falls since last visit most recently tuesday. Patient reporting imbalance and loosing her balance without dizziness or lightheadedness, denies LOC. Patient had a fall in september and fx her left foot. Patient reports no change to her medication regimen. cc:: CC: Veronica Rouse NP Review of Systems 2 ROS0 Status of ROS 10 or more systems reviewed and unremark able except as noted in history and below Musculoskeletal Reports: back pain, neck pain, extremity pain and joint pain PFSH PFSH Medical History Low back pain ?M54.50 - Low back pain, unspecified (ICD-10) Osteoarthritis ?M19.90 - Unspecified osteoarthritis, unspecified site (ICD-10) Obesity ?E66.9 - Obesity, unspecified (ICD-10) Hypothyroid ?E03.9 - Hypothyroidism, unspecified (ICD-10) Diabetes 1.5, managed as type 2 ?E13.9 - Other specified diabetes mellitus without complications (ICD-10) Sleep apnea ?G47.30 - Sleep apnea, unspecified (ICD-10) Irregular heartbeat ?I49.9 - Cardiac arrhythmia, unspecified (ICD-10) High cholesterol ?E78.00 - Pure hypercholesterolemia, unspecified (ICD-10) Hypertension ?I10 - Essential (primary) hypertension (ICD-10) Surgical History H/O shoulder surgery ?Z98.890 - Other specified postprocedural states (ICD-10) History of ankle surgery ?Z98.890 - Other specified postprocedural states (ICD-10) H/O tubal ligation ?Z98.51 - Tubal ligation status (ICD-10) History of appendectomy ?Z90.49 - Acquired absence of other specified parts of digestive tract (ICD- 10) H/O: hysterectomy ?Z90.710 - Acquired absence of both cervix and uterus (ICD-10) History of cataract extraction with lens replacement H/O carpal tunnel repair ?Z98.890 - Other specified postprocedural states (ICD-10) Hx of cholecystectomy ?Z90.49 - Acquired absence of other specified parts of digestive tract (ICD- 10) Meds Home Medications and Allergies Home Medications ?Medication ?Instructions ?Recorded ?Confirmed ?Type baclofen 10 mg tablet 10 mg PO BID 01/18/23 08/09/23 History carvedilol 25 mg tablet 12 mg PO BID 01/18/23 08/09/23 History diltiazem HCl 60 mg tablet 60 mg PO TID 01/18/23 08/09/23 History duloxetine 30 mg capsule,delayed 60 mg PO DAILY 01/18/23 08/09/23 History release furosemide 20 mg tablet (Lasix) 20 mg PO DAILY 01/18/23 08/09/23 History insulin glargine 100 unit/mL 27 unit subcut BID 01/18/23 08/09/23 History subcutaneous solution (Lantus U-100 Insulin) levothyroxine 75 mcg capsule 75 mcg PO DAILY 01/18/23 08/09/23 History multivitamin 1 tab PO DAILY 01/18/23 08/09/23 History ramipril 5 mg capsule 5 mg PO DAILY 01/18/23 08/09/23 History rivaroxaban 20 mg tablet (Xarelto) 20 mg PO DAILY 01/18/23 08/09/23 History tirzepatide 2.5 mg/0.5 mL 2.5 mg subcut QWEEK 04/05/23 08/09/23 History subcutaneous pen injector (Mounjaro) cranberry 500 mg capsule 500 mg PO DAILY 04/14/23 08/09/23 History docusate sodium 100 mg capsule 100 mg PO BID 04/14/23 08/09/23 History (Stool Softener) magnesium glycinate 100 mg tablet 100 mg PO DAILY 04/14/23 08/09/23 History mecobalamin (vitamin B12) 1,000 1,000 mcg PO DAILY 04/14/23 08/09/23 History mcg chewable tablet (B12 Active) hydrocodone 5 mg-acetaminophen 325 1 tab PO Q8H PRN pain #90 tabs 06/27/23 08/09/23 Rx mg tablet milk thistle seed extract 140 cap PO 06/29/23 History mg-milk thistle 500 mg capsule baclofen 10 mg tablet 10 mg PO TID PRN muscle spasm #90 07/14/23 08/09/23 Rx tabs hydrocodone 5 mg-acetaminophen 325 1 tab PO TID PRN pain #90 tabs 10/20/23 Rx mg tablet hydrocodone 5 mg-acetaminophen 325 1 tab PO TID PRN pain #90 tabs 11/18/23 Rx mg tablet Allergies Allergy/AdvReac Type Severity Reaction Status Date / Time amlodipine Allergy Unknown Verified 07/05/23 08:11 amoxicillin [From Augmentin] Allergy Unknown Verified 07/05/23 08:11 bacitracin Allergy Unknown Verified 07/05/23 08:11 [From Neosporin ([id number])] clavulanic acid Allergy Unknown Verified 07/05/23 08:11 [From Augmentin] dexamethasone [From TobraDex] Allergy Unknown Verified 07/05/23 08:11 fexofenadine [From Jody] Allergy Unknown Verified 07/05/23 08:11 metformin Allergy Unknown Verified 07/05/23 08:11 neomycin Allergy Unknown Verified 07/05/23 08:11 oxybutynin Allergy Unknown Verified 07/05/23 08:11 polymyxin B Allergy Unknown Verified 07/05/23 08:11 [From Neosporin ([id number])] simvastatin [From Zocor] Allergy Unknown Verified 07/05/23 08:11 tobramycin [From TobraDex] Allergy Unknown Verified 07/05/23 08:11 tramadol Allergy Unknown Verified 07/05/23 08:11 Exam Constitutional Documenting provider has reviewed patient's vital signs: yes Common normals: no apparent distress, oriented x3, healthy appearing, alert and well nourished General appearance: cooperative HENMT Common normals: normocephalic, hearing grossly normal bilaterally and moist oral mucous membranes Head and scalp: normocephalic Eye Common normals: PERRL Pupil: PERRL Neck & C-Spine Common normals: full ROM General: normal visual inspection Cervical spine: pain with cervical ROM Other: negative spurlings pain over bilateral c3-4 c4-5 facets and following dweyer diagram Chest Common normals: inspection of chest normal Respiratory Common normals: normal respiratory effort, no retractions and no use of accessory muscles Back & Pelvis Lumbar spine/lower back: ROM limited, pain with ROM and straight leg raise positive right Sacroiliac joints: SI joint(s) abnormal SI joint details: tender to palpation, pain elicited by compression of iliac crest maneuver and pain elicited by passive hyperextension of lower extremity Other: right L4, L5, S1 radiculopathy strength 4/5 in RLE Extremity Common normals: normal to inspection and full ROM Right lower extremity: hip joint (pain with internal rotation ) Extremity image (back): 2 1. lump to right buttock Neuro Common normals: oriented x3, CN's II-XII intact bilaterally, moves all extremities, no focal motor deficits, no sensory deficits noted and deep tendon reflexes 2+ bilaterally Sensorium/orientation: alert Gait (neuro): antalgic and assistive device used walker Motor exam: no movement abnormalities noted and strength abnormal Psych Common normals: mental status grossly normal, thought process normal, cooperative, affect normal, speech normal and activity/motor behavior normal Speech: normal speech Thought process: normal thought process Assessment and Plan Assessment and Plan (1) Falls frequently: (2) Right hip pain: (3) Coccydynia: (4) Lumbar stenosis with neurogenic claudication: (5) Chronic prescription opiate use: Assessment and Plan: I feel these medications are improving the patient's quality of life and allow them to tolerate activities of daily living as well as participate in recreational activity.? The patient does not report intolerable side effects. The patient is NOT opioid naive and non-pharmacologic and non-opioid treatment has failed to significantly relieve the patient's pain and improve functionality. The patient has a diagnosis that is related to a somatic or visceral pain etiology. ? ?? I reviewed with the patient the potential risks and side effects with the use of? opioid medications including but not limited to respiratory depression,? sedation, and even . I verified the patient has access to naloxone should? these effects occur. I advised the patient to avoid the use of any other? sedation substances including alcohol, THC, and benzodiazepines while? taking opioid medications due to the risk of compounding side effects and? detrimental outcomes. I reviewed the COMPLIANCE REVIEW SPECIALIST, pain treatment agreement, urine? drug screen, and opioid start talking forms. The patient was advised to let? their family know they had Naloxone in case they would need to administer? the medication.? ?? A drug screen was completed within the last year, and no aberrancies were noted regarding their use of controlled substances. The patient understands they are subject to the terms and conditions of the pain contract that they have signed. ? ?? I have checked an [place]AR[place] report on this patient today and there are no aberrancies noted in the prescribing history.? (6) Low back pain: (7) Lumbar spondylosis: (8) Muscle spasm: (9) Anticoagulant long-term use: (10) Balance problem: Plan numerous falls since last visit without LOC, most recent fall tuesday morning. patient reporting balance issues, denies dizziness lightheadedness denies injury to head. patient to f/u with PCP and attend PT for balance assessment update lumbar xray with flexion and extension, right hip xray, pelvis xray decrease duloxetine 30mg BID continue baclofen 10mg TID PRN, norco 5-325mg TID PRN moderate to severe pain chronic xarelto avoid NSAIDs f/u 2 weeks
== END 2023-11-23 11:01 | disposition home or self-care (01) ==
LOC: PM 11:00
PROVIDERS: Visit Provider Nurse Practitioner
DX: M25.551 Pain in right hip (principal); Z91.81 History of falling; M53.3 Sacrococcygeal disorders, not elsewhere classified; M48.062 Spinal stenosis, lumbar region with neurogenic claudication; Z79.891 Long term (current) use of opiate analgesic; M54.50 Low back pain, unspecified; M47.816 Spondylosis without myelopathy or radiculopathy, lumbar region; M62.838 Other muscle spasm; Z79.01 Long term (current) use of anticoagulants; R26.89 Other abnormalities of gait and mobility
CPT/HCPCS: G0463

== ENCOUNTER 2023-11-24 13:37 | Outpatient (OUT) | payer MEDICARE, SELFPAY ==
--- NOTE | 2023-11-24 13:45 | XR_ITS ---
The [address] [address] Patient Name: NAHED BAUMANN MRN: [id number] date: 1945 Sex: F Assigned Patient Location: [facility] Current Patient Location: [facility] Accession/Order Number: [id number] Exam Date: 11/24/2023 13:50 Report Date: 11/25/2023 06:40 At the request of: VERNON GIRON Procedure: XR lumbar spine 6V w bending EXAMINATION: XR lumbar spine 6V w bending HISTORY: Hip Pain, Low Back Pain ; right hip pain since falling 4 days ago COMPARISON: No relevant comparison available. FINDINGS: BONES: Mild degenerative facet arthropathy L3-L4 through L5-S1. No fracture, spondylolisthesis, bone lesion. DISC SPACES: Mild-moderate narrowing L2-L3, L3-L4. PARASPINOUS: Negative. No paraspinous abnormality is seen. OTHER: Negative. XR/XR lumbar spine 6V w bending IMPRESSION: 1. Mild degenerative changes. No acute bone abnormality. Electronically authenticated by: CARLO LAWSON Date: 11/25/2023 06:40
--- NOTE | 2023-11-24 13:45 | XR_ITS ---
The [address] [address] Patient Name: NAHED BAUMANN MRN: [id number] date: 1945 Sex: F Assigned Patient Location: [facility] Current Patient Location: Accession/Order Number: [id number] Exam Date: 11/24/2023 13:50 Report Date: 11/25/2023 06:39 At the request of: VERNON GIRON Procedure: XR hip RT 2V w/ pelvis PROCEDURE: XR hip RT 2V w/ pelvis HISTORY: Hip Pain, Low Back Pain COMPARISON: None. FINDINGS: BONES:Minimal narrowing of the hip joint spaces bilaterally. No fracture, dislocation, or significant periarticular degenerative changes. SOFT TISSUES:No visible soft tissue swelling. EFFUSION:None visible. OTHER: Numerous calcifications within the pelvis suspected to represent phleboliths. XR/XR hip RT 2V w/ pelvis IMPRESSION: 1. No acute bone abnormality. Minimal degenerative joint disease. Electronically authenticated by: CARLO LAWSON Date: 11/25/2023 06:39
== END 2023-11-24 13:38 | disposition home or self-care (01) ==
LOC: RAD 13:39
PROVIDERS: Visit Provider Nurse Practitioner
DX: M25.551 Pain in right hip (principal); M54.50 Low back pain, unspecified; M51.36 Other intervertebral disc degeneration, lumbar region
CPT/HCPCS: 72114; 73502

== ENCOUNTER 2023-12-07 10:58 | Outpatient (OUT) | payer MEDICARE, SELFPAY ==
--- NOTE | 2023-12-07 11:05 | PM.CN ---
Consult Note: HPI Data of Consult Patient: known to practice within the last 3 years Requesting Physician: Veronica Rouse NP Primary Care Provider: Non-Staff Physician, MD Consult Narrative Reason for consult: f/u Narrative: Deidra Peterson a pleasant 78 year old female presents for evaluation and management of chronic pain, today pain in low back and right hip 8/10 sharp stabbing. Increased to 10/10 with standing walking. Patient reporting pain is worsening since last visit. Two falls prior to last OV, no falls since last OV, has not been evaluated by PT yet. Patient reporting imbalance and loosing her balance without dizziness or lightheadedness, denies LOC. Patient has been unable to be seen by PCP yet. denies loss of bowel/bladder. cc:: CC: Veronica Rouse NP Review of Systems ROS Status of ROS 10 or more systems reviewed and unremarkable except as noted in history and below Musculoskeletal Reports: back pain and joint pain PFSH PFSH Medical History Low back pain ?M54.50 - Low back pain, unspecified (ICD-10) Osteoarthritis ?M19.90 - Unspecified osteoarthritis, unspecified site (ICD-10) Obesity ?E66.9 - Obesity, unspecified (ICD-10) Hypothyroid ?E03.9 - Hypothyroidism, unspecified (ICD-10) Diabetes 1.5, managed as type 2 ?E13.9 - Other specified diabetes mellitus without complications (ICD-10) Sleep apnea ?G47.30 - Sleep apnea, unspecified (ICD-10) Irregular heartbeat ?I49.9 - Cardiac arrhythmia, unspecified (ICD-10) High cholesterol ?E78.00 - Pure hypercholesterolemia, unspecified (ICD-10) Hypertension ?I10 - Essential (primary) hypertension (ICD-10) Surgical History H/O shoulder surgery ?Z98.890 - Other specified postprocedural states (ICD-10) History of ankle surgery ?Z98.890 - Other specified postprocedural states (ICD-10) H/O tubal ligation ?Z98.51 - Tubal ligation status (ICD-10) History of appendectomy ?Z90.49 - Acquired absence of other specified parts of digestive tract (ICD-10) H/O: hysterectomy ?Z90.710 - Acquired absence of both cervix and uterus (ICD-10) History of cataract extraction with lens replacement H/O carpal tunnel repair ?Z98.890 - Other specified postprocedural states (ICD-10) Hx of cholecystectomy ?Z90.49 - Acquired absence of other specified parts of digestive tract (ICD-10) Meds Home Medications and Allergies Home Medications ?Medication ?Instructions ?Recorded ?Confirmed ?Type baclofen 10 mg tablet 10 mg PO BID 01/18/23 08/09/23 History carvedilol 25 mg tablet 12 mg PO BID 01/18/23 08/09/23 History diltiazem HCl 60 mg tablet 60 mg PO TID 01/18/23 08/09/23 History duloxetine 30 mg capsule,delayed 60 mg PO DAILY 01/18/23 08/09/23 History release furosemide 20 mg tablet (Lasix) 20 mg PO DAILY 01/18/23 08/09/23 History insulin glargine 100 unit/mL 27 unit subcut BID 01/18/23 08/09/23 History subcutaneous solution (Lantus U-100 Insulin) levothyroxine 75 mcg capsule 75 mcg PO DAILY 01/18/23 08/09/23 History multivitamin 1 tab PO DAILY 01/18/23 08/09/23 History ramipril 5 mg capsule 5 mg PO DAILY 01/18/23 08/09/23 History rivaroxaban 20 mg tablet (Xarelto) 20 mg PO DAILY 01/18/23 08/09/23 History tirzepatide 2.5 mg/0.5 mL 2.5 mg subcut QWEEK 04/05/23 08/09/23 History subcutaneous pen injector (Mounjaro) cranberry 500 mg capsule 500 mg PO DAILY 04/14/23 08/09/23 History docusate sodium 100 mg capsule 100 mg PO BID 04/14/23 08/09/23 History (Stool Softener) magnesium glycinate 100 mg tablet 100 mg PO DAILY 04/14/23 08/09/23 History mecobalamin (vitamin B12) 1,000 1,000 mcg PO DAILY 04/14/23 08/09/23 History mcg chewable tablet (B12 Active) hydrocodone 5 mg-acetaminophen 325 1 tab PO Q8H PRN pain #90 tabs 06/27/23 08/09/23 Rx mg tablet milk thistle seed extract 140 cap PO 06/29/23 History mg-milk thistle 500 mg capsule baclofen 10 mg tablet 10 mg PO TID PRN muscle spasm #90 07/14/23 08/09/23 Rx tabs hydrocodone 5 mg-acetaminophen 325 1 tab PO TID PRN pain #90 tabs 10/20/23 Rx mg tablet hydrocodone 5 mg-acetaminophen 325 1 tab PO TID PRN pain #90 tabs 11/18/23 Rx mg tablet Allergies Allergy/AdvReac Type Severity Reaction Status Date / Time amlodipine Allergy Unknown Verified 07/05/23 08:11 amoxicillin [From Augmentin] Allergy Unknown Verified 07/05/23 08:11 bacitracin Allergy Unknown Verified 07/05/23 08:11 [From Neosporin ([id number])] clavulanic acid Allergy Unknown Verified 07/05/23 08:11 [From Augmentin] dexamethasone [From TobraDex] Allergy Unknown Verified 07/05/23 08:11 fexofenadine [From Jody] Allergy Unknown Verified 07/05/23 08:11 metformin Allergy Unknown Verified 07/05/23 08:11 neomycin Allergy Unknown Verified 07/05/23 08:11 oxybutynin Allergy Unknown Verified 07/05/23 08:11 polymyxin B Allergy Unknown Verified 07/05/23 08:11 [From Neosporin ([id number])] simvastatin [From Zocor] Allergy Unknown Verified 07/05/23 08:11 tobramycin [From TobraDex] Allergy Unknown Verified 07/05/23 08:11 tramadol Allergy Unknown Verified 07/05/23 08:11 Exam Constitutional Documenting provider has reviewed patient's vital signs: yes Common normals: no apparent distress, oriented x3, healthy appearing, alert and well nourished General appearance: cooperative HENMT Common normals: normocephalic, hearing grossly normal bilaterally and moist oral mucous membranes Head and scalp: normocephalic Eye Common normals: PERRL Pupil: PERRL Neck & C-Spine Common normals: full ROM General: normal visual inspection Cervical spine: pain with cervical ROM Other: negative spurlings pain over bilateral c3-4 c4-5 facets and following dweyer diagram Chest Common normals: inspection of chest normal Respiratory Common normals: normal respiratory effort, no retractions and no use of accessory muscles Back & Pelvis Lumbar spine/lower back: ROM limited, pain with ROM and straight leg raise positive right Sacroiliac joints: SI joint(s) abnormal SI joint details: tender to palpation, pain elicited by compression of iliac crest maneuver and pain elicited by passive hyperextension of lower extremity Other: right L4, L5, S1 radiculopathy strength 3/5 in RLE right hip pain with internal and external rotation, severe tenderness over piriformis muscles. swelling noted on area noted below with large palpable moveable mass edema noted Back image (female): 1. mass 2. pain/tenderness Extremity Common normals: normal to inspection and full ROM Right lower extremity: hip joint (pain with internal rotation and external rotation) Right hip: special tests Neuro Common normals: oriented x3, CN's II-XII intact bilaterally, moves all extremities, no focal motor deficits, no sensory deficits noted and deep tendon reflexes 2+ bilaterally Sensorium/orientation: alert Gait (neuro): antalgic and assistive device used walker Motor exam: no movement abnormalities noted and strength abnormal Psych Common normals: mental status grossly normal, thought process normal, cooperative, affect normal, speech normal and activity/motor behavior normal Speech: normal speech Thought process: normal thought process Results Additional Findings Additional findings: If on a controlled substance or opioids, I have checked an [place] report on this patient and there are no aberrancies noted in the prescribing history.??If on a controlled substance or opioid a drug screen was completed and reviewed within the last year, and if there has not been a drug screen completed we ordered one today to monitor higher risk, state monitored pain medication use. As part of providing excellent, safe, comprehensive care, the following was completed at our patient's visit: 1. A medication reconciliation and review to ensure accurate knowledge of current/active medications, including asking our patients to inform us about any [id number] medications or herbal remedies/nutritional supplements/alternative remedies. 2. A review to specifically ensure our patients have had annual screening for screening for depression, screening for tobacco use, and screening for unhealthy alcohol use. For concerning screenings had a discussion with the patient, provided patient education, and recommended follow-up with primary care provider when appropriate. If patient noted with a risk of falling, they received education on strength, gait, and balance training to prevent future risk of falling. Assessment and Plan Assessment and Plan (1) Right hip pain: (2) Falls frequently: (3) Lumbar stenosis with neurogenic claudication: (4) Chronic prescription opiate use: Assessment and Plan: I feel these medications are improving the patient's quality of life and allow them to tolerate activities of daily living as well as participate in recreational activity.? The patient does not report intolerable side effects. The patient is NOT opioid naive and non-pharmacologic and non-opioid treatment has failed to significantly relieve the patient's pain and improve functionality. The patient has a diagnosis that is related to a somatic or visceral pain etiology. ? ?? I reviewed with the patient the potential risks and side effects with the use of? opioid medications including but not limited to respiratory depression,? sedation, and even . I verified the patient has access to naloxone should? these effects occur. I advised the patient to avoid the use of any other? sedation substances including alcohol, THC, and benzodiazepines while? taking opioid medications due to the risk of compounding side effects and? detrimental outcomes. I reviewed the [employer] PREVENTION SPECIALIST, pain treatment agreement, urine? drug screen, and opioid start talking forms. The patient was advised to let? their family know they had Naloxone in case they would need to administer? the medication.? ?? A drug screen was completed within the last year, and no aberrancies were noted regarding their use of controlled substances. The patient understands they are subject to the terms and conditions of the pain contract that they have signed. ? ?? I have checked an [place]AR[place] report on this patient today and there are no aberrancies noted in the prescribing history.? (5) Lumbar spondylosis: (6) Anticoagulant long-term use: (7) Balance problem: (8) Muscle spasm: Plan f/u with PCP and attend PT for balance assessment lumbar xray with flexion and extension, right hip xray, pelvis xray reviewed with patient, no acute findings decrease duloxetine 30mg daily continue baclofen 10mg TID PRN increase norco 7.5mg TID PRN moderate to severe pain, risks vs benefits discussed. narcan discussed and prescribed chronic xarelto avoid NSAIDs update right hip MRI for chronic severe right hip pain unresponsive to HEP/PT, conservative medications, essential to evaluate care plan and need for surgical referral f/u after MRI
== END 2023-12-07 10:59 | disposition home or self-care (01) ==
LOC: PM 10:58
PROVIDERS: Visit Provider Nurse Practitioner
DX: M25.551 Pain in right hip (principal); M48.062 Spinal stenosis, lumbar region with neurogenic claudication; Z79.891 Long term (current) use of opiate analgesic; Z91.81 History of falling; M47.816 Spondylosis without myelopathy or radiculopathy, lumbar region; Z79.01 Long term (current) use of anticoagulants; M62.838 Other muscle spasm; R26.89 Other abnormalities of gait and mobility
CPT/HCPCS: G0463

== ENCOUNTER 2023-12-15 13:37 | Outpatient (RCR) | payer MEDICARE, SELFPAY | END 2023-12-16 16:25 | disposition home or self-care (01) | LOC: PT 13:37 | PROVIDERS: Visit Provider Nurse Practitioner | DX: R26.89 Other abnormalities of gait and mobility (principal); R29.6 Repeated falls | CPT/HCPCS: 97162 ==

== ENCOUNTER 2024-01-02 15:01 | Outpatient (OUT) | payer MEDICARE, SELFPAY ==
--- NOTE | 2024-01-02 15:06 | MR_ITS ---
The [address] [address] Patient Name: NAHED BAUMANN MRN: [facility]:[id number] date: 1945 Sex: F Assigned Patient Location: MRI Current Patient Location: Accession/Order Number: [id number] Exam Date: 01/02/2024 15:20 Report Date: 01/03/2024 13:24 At the request of: VERNON GIRON Procedure: MR hip RT wo con EXAMINATION: MR hip RT wo con HISTORY: Right hip pain COMPARISON: No relevant comparison available. TECHNIQUE: A comprehensive examination was performed utilizing a variety of imaging planes and imaging parameters to optimize visualization of suspected pathology. Images were performed without contrast. FINDINGS: FEMORAL HEAD: Normal. No AVN, fracture, or significant arthropathy. ACETABULUM: Normal. No fracture or significant arthropathy. OTHER BONES: Normal appearance of the visualized portion of the pelvis. LABRUM: Normal appearance for a patient in this age group, with no visible tear. EFFUSIONS: None. No synovitis or loose bodies. BURSAE: Normal. No evidence of iliopsoas or trochanteric bursitis. TENDONS: Normal. Normal gluteus tendons, iliopsoas tendon, and hamstring origin. MUSCLES: Normal. No tear or strain. No inappropriate atrophy. OTHER: Negative. MR/MR hip RT wo con IMPRESSION: 1. No appreciable acute abnormality or significant degenerative joint disease. Electronically authenticated by: CARLO LAWSON Date: 01/03/2024 13:24
== END 2024-01-02 15:02 | disposition home or self-care (01) ==
LOC: MRI 15:01
PROVIDERS: Visit Provider Nurse Practitioner
DX: M25.551 Pain in right hip (principal)
CPT/HCPCS: 73721

== ENCOUNTER 2024-01-04 12:09 | Outpatient (OUT) | payer MEDICARE, SELFPAY ==
--- NOTE | 2024-01-04 12:50 | P.CN_ITS ---
Consult Note: HPI Data of Consult Patient: known to practice within the last 3 years Requesting Physician: Veronica Rouse NP Primary Care Provider: Non-Staff Physician, MD Consult Narrative Reason for consult: f/u Narrative: Deidra Peterson a pleasant 78 year old female presents for evaluation and management of chronic pain, today pain in low back and right hip 9/10 sharp stabbing. Increased to 10/10 with standing walking. Patient reporting pain is worsening since last visit. Two falls within the last 6 months, no falls since last OV, has not been evaluated by PT yet. Patient reporting imbalance and loosing her balance without dizziness or lightheadedness, denies LOC. Recently underwent right hip MRI which is negative, previous xray showed mild OA. Patient did not find benefit to norco 7.5 mg TID PRN as compared to norco 5mg TID PRN. Patient on baclofen 10 mg TID and duloxetine 30mg BID. cc:: CC: Veronica Rouse NP Review of Systems ROS Status of ROS 10 or more systems reviewed and unremark able except as noted in history and below Musculoskeletal Reports: back pain and joint pain PFSH PFSH Medical History Low back pain ?M54.50 - Low back pain, unspecified (ICD-10) Osteoarthritis ?M19.90 - Unspecified osteoarthritis, unspecified site (ICD-10) Obesity ?E66.9 - Obesity, unspecified (ICD-10) Hypothyroid ?E03.9 - Hypothyroidism, unspecified (ICD-10) Diabetes 1.5, managed as type 2 ?E13.9 - Other specified diabetes mellitus without complications (ICD-10) Sleep apnea ?G47.30 - Sleep apnea, unspecified (ICD-10) Irregular heartbeat ?I49.9 - Cardiac arrhythmia, unspecified (ICD-10) High cholesterol ?E78.00 - Pure hypercholesterolemia, unspecified (ICD-10) Hypertension ?I10 - Essential (primary) hypertension (ICD-10) Surgical History H/O shoulder surgery ?Z98.890 - Other specified postprocedural states (ICD-10) History of ankle surgery ?Z98.890 - Other specified postprocedural states (ICD-10) H/O tubal ligation ?Z98.51 - Tubal ligation status (ICD-10) History of appendectomy ?Z90.49 - Acquired absence of other specified parts of digestive tract (ICD- 10) H/O: hysterectomy ?Z90.710 - Acquired absence of both cervix and uterus (ICD-10) History of cataract extraction with lens replacement H/O carpal tunnel repair ?Z98.890 - Other specified postprocedural states (ICD-10) Hx of cholecystectomy ?Z90.49 - Acquired absence of other specified parts of digestive tract (ICD- 10) Meds Home Medications and Allergies Home Medications ?Medication ?Instructions ?Recorded ?Confirmed ?Type baclofen 10 mg tablet 10 mg PO BID 01/18/23 08/09/23 History carvedilol 25 mg tablet 12 mg PO BID 01/18/23 08/09/23 History diltiazem HCl 60 mg tablet 60 mg PO TID 01/18/23 08/09/23 History duloxetine 30 mg capsule,delayed 60 mg PO DAILY 01/18/23 08/09/23 History release furosemide 20 mg tablet (Lasix) 20 mg PO DAILY 01/18/23 08/09/23 History insulin glargine 100 unit/mL 27 unit subcut BID 01/18/23 08/09/23 History subcutaneous solution (Lantus U-100 Insulin) levothyroxine 75 mcg capsule 75 mcg PO DAILY 01/18/23 08/09/23 History multivitamin 1 tab PO DAILY 01/18/23 08/09/23 History ramipril 5 mg capsule 5 mg PO DAILY 01/18/23 08/09/23 History rivaroxaban 20 mg tablet (Xarelto) 20 mg PO DAILY 01/18/23 08/09/23 History tirzepatide 2.5 mg/0.5 mL 2.5 mg subcut QWEEK 04/05/23 08/09/23 History subcutaneous pen injector (Mounjaro) cranberry 500 mg capsule 500 mg PO DAILY 04/14/23 08/09/23 History docusate sodium 100 mg capsule 100 mg PO BID 04/14/23 08/09/23 History (Stool Softener) magnesium glycinate 100 mg tablet 100 mg PO DAILY 04/14/23 08/09/23 History mecobalamin (vitamin B12) 1,000 1,000 mcg PO DAILY 04/14/23 08/09/23 History mcg chewable tablet (B12 Active) hydrocodone 5 mg-acetaminophen 325 1 tab PO Q8H PRN pain #90 tabs 06/27/23 08/09/23 Rx mg tablet milk thistle seed extract 140 cap PO 06/29/23 History mg-milk thistle 500 mg capsule baclofen 10 mg tablet 10 mg PO TID PRN muscle spasm #90 07/14/23 08/09/23 Rx tabs hydrocodone 5 mg-acetaminophen 325 1 tab PO TID PRN pain #90 tabs 10/20/23 Rx mg tablet hydrocodone 5 mg-acetaminophen 325 1 tab PO TID PRN pain #90 tabs 11/18/23 Rx mg tablet hydrocodone 7.5 mg-acetaminophen 1 tab PO TID PRN pain #90 tabs 12/13/23 Rx 325 mg tablet Allergies Allergy/AdvReac Type Severity Reaction Status Date / Time amlodipine Allergy Unknown Verified 07/05/23 08:11 amoxicillin [From Augmentin] Allergy Unknown Verified 07/05/23 08:11 bacitracin Allergy Unknown Verified 07/05/23 08:11 [From Neosporin ([id number])] clavulanic acid Allergy Unknown Verified 07/05/23 08:11 [From Augmentin] dexamethasone [From TobraDex] Allergy Unknown Verified 07/05/23 08:11 fexofenadine [From Jody] Allergy Unknown Verified 07/05/23 08:11 metformin Allergy Unknown Verified 07/05/23 08:11 neomycin Allergy Unknown Verified 07/05/23 08:11 oxybutynin Allergy Unknown Verified 07/05/23 08:11 polymyxin B Allergy Unknown Verified 07/05/23 08:11 [From Neosporin ([id number])] simvastatin [From Zocor] Allergy Unknown Verified 07/05/23 08:11 tobramycin [From TobraDex] Allergy Unknown Verified 07/05/23 08:11 tramadol Allergy Unknown Verified 07/05/23 08:11 Exam Constitutional Documenting provider has reviewed patient's vital signs: yes Common normals: no apparent distress, oriented x3, healthy appearing, alert and well nourished General appearance: cooperative HENCO Common normals: normocephalic, hearing grossly normal bilaterally and moist oral mucous membranes Head and scalp: normocephalic Eye Common normals: PERRL Pupil: PERRL Neck & C-Spine Common normals: full ROM General: normal visual inspection Cervical spine: pain with cervical ROM Other: negative spurlings pain over bilateral c3-4 c4-5 facets and following dweyer diagram Chest Common normals: inspection of chest normal Respiratory Common normals: normal respiratory effort, no retractions and no use of accessory muscles Back & Pelvis Lumbar spine/lower back: ROM limited, pain with ROM and straight leg raise positive right Sacroiliac joints: SI joint(s) abnormal SI joint details: tender to palpation, pain elicited by compression of iliac crest maneuver and pain elicited by passive hyperextension of lower extremity Other: right L4, L5, S1 radiculopathy strength 3/5 in RLE right hip pain with internal and external rotation, severe tenderness over piriformis muscles. Extremity Common normals: normal to inspection and full ROM Right lower extremity: hip joint (pain with internal rotation and external rotation) Right hip: special tests Neuro Common normals: oriented x3, CN's II-XII intact bilaterally, moves all extremities, no focal motor deficits, no sensory deficits noted and deep tendon reflexes 2+ bilaterally Sensorium/orientation: alert Gait (neuro): antalgic and assistive device used walker Motor exam: no movement abnormalities noted and strength abnormal Psych Common normals: mental status grossly normal, thought process normal, cooperative, affect normal, speech normal and activity/motor behavior normal Speech: normal speech Thought process: normal thought process Results Additional Findings Additional findings: If on a controlled substance or opioids, I have checked an [place] report on this patient and there are no aberrancies noted in the prescribing history.??If on a controlled substance or opioid a drug screen was completed and reviewed within the last year, and if there has not been a drug screen completed we ordered one today to monitor higher risk, state monitored pain medication use. As part of providing excellent, safe, comprehensive care, the following was completed at our patient's visit: 1. A medication reconciliation and review to ensure accurate knowledge of current/active medications, including asking our patients to inform us about any [id number]-[id number] medications or herbal remedies/nutritional supplements/alternative remedies. 2. A review to specifically ensure our patients have had annual screening for screening for depression, screening for tobacco use, and screening for unhealthy alcohol use. For concerning screenings had a discussion with the patient, provided patient education, and recommended follow-up with primary care provider when appropriate. If patient noted with a risk of falling, they received educ ation on strength, gait, and balance training to prevent future risk of falling. Assessment and Plan Assessment and Plan (1) Lumbar stenosis with neurogenic claudication: (2) Sacroiliitis: (3) Right hip pain: (4) Falls frequently: (5) Chronic prescription opiate use: Assessment and Plan: I feel these medications are improving the patient's quality of life and allow them to tolerate activities of daily living as well as participate in recreational activity.? The patient does not report intolerable side effects. The patient is NOT opioid naive and non-pharmacologic and non-opioid treatment has failed to significantly relieve the patient's pain and improve functionality. The patient has a diagnosis that is related to a somatic or visceral pain etiology. ? ?? I reviewed with the patient the potential risks and side effects with the use of? opioid medications including but not limited to respiratory depression,? sedation, and even . I verified the patient has access to naloxone should? these effects occur. I advised the patient to avoid the use of any other? sedation substances including alcohol, THC, and benzodiazepines while? taking opioid medications due to the risk of compounding side effects and? detrimental outcomes. I reviewed the [employer], pain treatment agreement, urine? drug screen, and opioid start talking forms. The patient was advised to let? their family know they had Naloxone in case they would need to administer? the medication.? ?? A drug screen was completed within the last year, and no aberrancies were noted regarding their use of controlled substances. The patient understands they are subject to the terms and conditions of the pain contract that they have signed. ? ?? I have checked an [place] report on this patient today and there are no aberrancies noted in the prescribing history.? (6) Lumbar spondylosis: (7) Anticoagulant long-term use: (8) Balance problem: (9) Muscle spasm: Plan right hip MRI reviewed with patient f/u with PCP for hypoglycemia and falls and attend PT for balance assessment continue duloxetine 30mg daily continue baclofen 10mg TID PRN decrease norco 5mg TID PRN moderate to severe pain, risks vs benefits discussed. narcan discussed and prescribed. increased dose was not beneficial. I would recommend in the future an opioid holiday. chronic xarelto avoid NSAIDs Right L4-5 L5-S1 TFESI under fluoroscopy with Dr Ramon followed by right SIJ injection f/u after injections completed
== END 2024-01-04 12:10 | disposition home or self-care (01) ==
PROVIDERS: Visit Provider Nurse Practitioner
DX: M48.062 Spinal stenosis, lumbar region with neurogenic claudication (principal); M46.1 Sacroiliitis, not elsewhere classified; M25.551 Pain in right hip; Z79.891 Long term (current) use of opiate analgesic; M47.816 Spondylosis without myelopathy or radiculopathy, lumbar region; Z79.01 Long term (current) use of anticoagulants; R26.89 Other abnormalities of gait and mobility; M62.838 Other muscle spasm
CPT/HCPCS: G0463

== ENCOUNTER 2024-01-16 09:30 | Day surgery (SDC) | payer MEDICARE, SELFPAY ==
[2024-01-16 09:54] LABS: Glucometer 203 mg/dL (74-106)
[2024-01-16 09:55] VITALS: BP 174/74; PULSE 66; TEMP 36.3; O2SAT 98
[2024-01-16] MEDS: 0.9 % SODIUM CHLORIDE 10 ML SYRINGE - SALINE FLUSH INJ (10:31)
[2024-01-16] MEDS: TRIAMCINOLONE ACETONIDE 40 MG/ML VIAL INJ (10:31)
[2024-01-16] MEDS: LIDOCAINE HCL 2% PF 100 MG/5 ML VIAL INJ (10:31)
[2024-01-16] MEDS: BUPIVACAINE HCL 0.25% PF 25 MG/10 ML VIAL INJ (10:31)
[2024-01-16] MEDS: IOHEXOL 240 MG/ML - 10 ML VIAL INJ (10:32)
--- NOTE | 2024-01-16 10:32 | P.ON_ITS ---
Date of procedure: 01/16/24 Pre-op diagnosis: Pain due to lumbar stenosis with neurogenic claudication Post-op diagnosis: same as pre-op Procedure: Procedure: Right L4-5, L5-S1 transforaminal epidural steroid injection Medications: Bupivacaine 0.25% 2cc, lidocaine 2% 1cc, kenalog 80mg The patient was seen and examined in the preoperative holding area.? Informed consent was obtained and placed on the chart.? Patient was brought to the medical procedure unit and placed in the prone position where a timeout was completed verifying the correct patient, procedure site, position, and planned special equipment using sterile aseptic technique.? Under direct fluoroscopic visualization a 25-gauge Quincke tipped spinal needle was advanced to the designated neural foramen where contrast dye was injected to show adequate spread.? The needle was inserted at level right L4-5. There was no evidence of vascular or adverse uptake.? Epidural spread was appreciated.? The above- mentioned injectate was then placed in a 1.5 mL aliquot preceded by negative aspiration.? The needle was removed. The needle was inserted and the procedure repeated at level right L5-S1.? The surgery site was covered.? Patient was taken to the postprocedural recovery area and monitored for an appropriate length of time before found suitable for discharge in the accompaniment of a responsible adult. Anesthesia: Local Surgeon: Farooq Ramon Pathology: none sent Condition: stable Disposition: no change
[2024-01-16 10:33] VITALS: BP 200/87; BP 201/93; PULSE 112; O2SAT 92
--- NOTE | 2024-01-16 10:40 | PC.NURSE ---
Pt reports numbness and weakness to right leg post procedure. Pt placed in wheelchair with assistance. Will monitor until function returns. Pt verbalized understanding.
== END 2024-01-16 11:27 | disposition home or self-care (01) ==
LOC: SURGOUT 09:31
PROVIDERS: Visit Provider Anesthesiology
DX: M48.062 Spinal stenosis, lumbar region with neurogenic claudication (principal); Z79.84 Long term (current) use of oral hypoglycemic drugs
CPT/HCPCS: 36415; 64483; 64484; 82948; J0665; J3301; Q9966

== ENCOUNTER 2024-01-30 08:49 | Day surgery (SDC) | payer MEDICARE, SELFPAY ==
[2024-01-30 09:16] VITALS: BP 139/62; PULSE 76; TEMP 36.3; O2SAT 97
[2024-01-30 09:16] LABS: Glucometer 248 mg/dL (74-106)
[2024-01-30 09:43] VITALS: BP 187/84; BP 193/83; PULSE 73; PULSE 74; O2SAT 92; O2SAT 94
[2024-01-30] MEDS: TRIAMCINOLONE ACETONIDE 40 MG/ML VIAL INJ (09:47)
[2024-01-30] MEDS: LIDOCAINE HCL 2% 400 MG/20 ML MDV INJ (09:47)
[2024-01-30] MEDS: BUPIVACAINE HCL 0.25% PF 25 MG/10 ML VIAL 2 ML INJ (09:47)
[2024-01-30] MEDS: IOHEXOL 240 MG/ML - 10 ML VIAL 12 MG INJ (09:47)
--- NOTE | 2024-01-30 09:48 | W.PM.PROCNOT ---
Date of procedure: 01/30/24 Pre-op diagnosis: Pain due to right sacroiliitis Post-op diagnosis: same as pre-op Procedure: Procedure: Right sacroiliac joint injection Medications: Buipivacaine 0.25% 3cc, kenalog 40mg After informed consent was obtained, the patient was brought to the medical procedure unit and placed in the prone position, when a timeout was completed verifying correct patient, procedure, site, positioning, implant, and/or special equipment.? The skin overlying the area was prepped and draped in standard sterile fashion using alcohol.? A 25-gauge needle was inserted towards the right sacroiliac joint under direct fluoroscopic imaging.? Needle tip was advanced until the joint was encountered.? We instilled a total of 2 mL of solution.? Postoperatively needles were removed.? The patient tolerated the procedure well without complication.? The patient reported reduction in pain symptoms postoperatively. Anesthesia: Local Surgeon: Farooq Ramon Pathology: none sent Condition: stable Disposition: no change
== END 2024-01-30 09:47 | disposition home or self-care (01) ==
LOC: SURGOUT 08:50
PROVIDERS: Visit Provider Anesthesiology
DX: M46.1 Sacroiliitis, not elsewhere classified (principal); Z79.4 Long term (current) use of insulin; Z79.85 Long-term (current) use of injectable non-insulin antidiabetic drugs
CPT/HCPCS: 27096; 36415; 82948; J0665; J3301; Q9966

== ENCOUNTER 2024-03-21 15:03 | Outpatient (OUT) | payer MEDICARE, SELFPAY ==
--- NOTE | 2024-03-21 15:31 | P.CN_ITS ---
Consult Note: HPI Data of Consult Patient: known to practice within the last 3 years Requesting Physician: Veronica Rouse NP Primary Care Provider: Non-Staff Physician, MD Consult Narrative Reason for consult: f/u Narrative: Deidra Peterson a pleasant 78 year old female presents for evaluation and management of chronic pain, today pain in low back and right leg 9/10 sharp stabbing. Increased to 10/10 with standing walking. Patient reporting pain is worsening since last visit. Two falls within the last 6 months, no falls since last OV, has not been evaluated by PT yet due to severe pain. Patient reporting imbalance and loosing her balance without dizziness or lightheadedness, denies LOC. Recently underwent right hip MRI which is negative, previous xray showed mild OA. Patient previously reported she did not find benefit to norco 7.5 mg TID PRN as compared to norco 5mg TID PRN, however she is currently taking her norco 5-325mg [id number] with benefit for 3-4 hours at a time. Patient on baclofen 10 mg TID and duloxetine 30mg BID. Unforunately she recently underwent right L4/5 L5/S1 TFESI and right SIJ injection with 100% improvement for four days before pain returned to baseline, patient reports for those four days her blood sugar was over 300. cc:: CC: Veronica Rouse NP Review of Systems ROS Status of ROS 10 or more systems reviewed and unremark able except as noted in history and below Musculoskeletal Reports: back pain and extremity pain PFSH PFSH Medical History Low back pain ?M54.50 - Low back pain, unspecified (ICD-10) Osteoarthritis ?M19.90 - Unspecified osteoarthritis, unspecified site (ICD-10) Obesity ?E66.9 - Obesity, unspecified (ICD-10) Hypothyroid ?E03.9 - Hypothyroidism, unspecified (ICD-10) Diabetes 1.5, managed as type 2 ?E13.9 - Other specified diabetes mellitus without complications (ICD-10) Sleep apnea ?G47.30 - Sleep apnea, unspecified (ICD-10) Irregular heartbeat ?I49.9 - Cardiac arrhythmia, unspecified (ICD-10) High cholesterol ?E78.00 - Pure hypercholesterolemia, unspecified (ICD-10) Hypertension ?I10 - Essential (primary) hypertension (ICD-10) Surgical History H/O shoulder surgery ?Z98.890 - Other specified postprocedural states (ICD-10) History of ankle surgery ?Z98.890 - Other specified postprocedural states (ICD-10) H/O tubal ligation ?Z98.51 - Tubal ligation status (ICD-10) History of appendectomy ?Z90.49 - Acquired absence of other specified parts of digestive tract (ICD- 10) H/O: hysterectomy ?Z90.710 - Acquired absence of both cervix and uterus (ICD-10) History of cataract extraction with lens replacement H/O carpal tunnel repair ?Z98.890 - Other specified postprocedural states (ICD-10) Hx of cholecystectomy ?Z90.49 - Acquired absence of other specified parts of digestive tract (ICD- 10) Meds Home Medications and Allergies Home Medications ?Medication ?Instructions ?Recorded ?Confirmed ?Type carvedilol 25 mg tablet 12 mg PO BID 01/18/23 01/30/24 History diltiazem HCl 60 mg tablet 60 mg PO TID 01/18/23 01/30/24 History duloxetine 30 mg capsule,delayed 60 mg PO DAILY 01/18/23 01/30/24 History release furosemide 20 mg tablet (Lasix) 20 mg PO DAILY 01/18/23 01/30/24 History insulin glargine 100 unit/mL 27 unit subcut BID 01/18/23 01/30/24 History subcutaneous solution (Lantus U-100 Insulin) levothyroxine 75 mcg capsule 75 mcg PO DAILY 01/18/23 01/30/24 History multivitamin 1 tab PO DAILY 01/18/23 01/30/24 History ramipril 5 mg capsule 5 mg PO DAILY 01/18/23 01/30/24 History rivaroxaban 20 mg tablet (Xarelto) 20 mg PO DAILY 01/18/23 01/30/24 History cranberry 500 mg capsule 500 mg PO DAILY 04/14/23 01/30/24 History docusate sodium 100 mg capsule 100 mg PO BID 04/14/23 01/30/24 History (Stool Softener) magnesium glycinate 100 mg (as 100 mg PO DAILY 04/14/23 01/30/24 History glycinate) tablet mecobalamin (vitamin B12) 1,000 1,000 mcg PO DAILY 04/14/23 01/30/24 History mcg chewable tablet (B12 Active) milk thistle seed extract 140 cap PO 06/29/23 History mg-milk thistle 500 mg capsule baclofen 10 mg tablet 10 mg PO TID PRN muscle spasm #90 07/14/23 01/30/24 Rx tabs hydrocodone 7.5 mg-acetaminophen 1 tab PO TID PRN pain #90 tabs 12/13/23 01/30/24 Rx 325 mg tablet semaglutide 1 mg/dose (4 mg/3 mL) 0.25 mg subcut QWEEK 01/16/24 01/30/24 History subcutaneous pen injector (Ozempic) hydrocodone 5 mg-acetaminophen 325 1 tab PO TID PRN pain #90 tabs 02/09/24 Rx mg tablet Allergies Allergy/AdvReac Type Severity Reaction Status Date / Time amlodipine Allergy Unknown Verified 01/30/24 09:19 amoxicillin [From Augmentin] Allergy Unknown Verified 01/30/24 09:19 bacitracin Allergy Unknown Verified 01/30/24 09:19 [From Neosporin ([id number])] clavulanic acid Allergy Unknown Verified 01/30/24 09:19 [From Augmentin] dexamethasone [From TobraDex] Allergy Unknown Verified 01/30/24 09:19 fexofenadine [From Jody] Allergy Unknown Verified 01/30/24 09:19 metformin Allergy Unknown Verified 01/30/24 09:19 neomycin Allergy Unknown Verified 01/30/24 09:19 oxybutynin Allergy Unknown Verified 01/30/24 09:19 polymyxin B Allergy Unknown Verified 01/30/24 09:19 [From Neosporin ([id number])] simvastatin [From Zocor] Allergy Unknown Verified 01/30/24 09:19 tobramycin [From TobraDex] Allergy Unknown Verified 01/30/24 09:19 tramadol Allergy Unknown Verified 01/30/24 09:19 Exam Constitutional Documenting provider has reviewed patient's vital signs: yes Common normals: no apparent distress, oriented x3, healthy appearing, alert and well nourished General appearance: cooperative HENMT Common normals: normocephalic, hearing grossly normal bilaterally and moist oral mucous membranes Head and scalp: normocephalic Eye Common normals: PERRL Pupil: PERRL Neck & C-Spine Common normals: full ROM General: normal visual inspection Cervical spine: pain with cervical ROM Other: negative spurlings pain over bilateral c3-4 c4-5 facets and following dweyer diagram Chest Common normals: inspection of chest normal Respiratory Common normals: normal respiratory effort, no retractions and no use of accessory muscles Back & Pelvis Lumbar spine/lower back: ROM limited, pain with ROM and straight leg raise positive right Sacroiliac joints: SI joint(s) abnormal SI joint details: tender to palpation, pain elicited by compression of iliac crest maneuver and pain elicited by passive hyperextension of lower extremity Other: right L4, L5, S1 radiculopathy strength 3/5 in RLE right hip pain with internal and external rotation, severe tenderness over piriformis muscles. Extremity Common normals: normal to inspection and full ROM Right lower extremity: hip joint (pain with internal rotation and external rotation) Right hip: special tests Neuro Common normals: oriented x3, CN's II-XII intact bilaterally, moves all extremities, no focal motor deficits, no sensory deficits noted and deep tendon reflexes 2+ bilaterally Sensorium/orientation: alert Gait (neuro): antalgic and assistive device used walker Motor exam: strength 5/5 throughout and no movement abnormalities noted Psych Common normals: mental status grossly normal, thought process normal, cooperative, affect normal, speech normal and activity/motor behavior normal Speech: normal speech Thought process: normal thought process Results Additional Findings Additional findings: If on a controlled substance or opioids, I have checked an [place] report on this patient and there are no aberrancies noted in the prescribing history.??If on a controlled substance or opioid a drug screen was completed and reviewed within the last year, and if there has not been a drug screen completed we ordered one today to monitor higher risk, state monitored pain medication use. As part of providing excellent, safe, comprehensive care, the following was completed at our patient's visit: 1. A medication reconciliation and review to ensure accurate knowledge of current/active medications, including asking our patients to inform us about any [id number] medications or herbal remedies/nutritional supplements/alternative remedies. 2. A review to specifically ensure our patients have had annual screening for screening for depression, screening for tobacco use, and screening for unhealthy alcohol use. For concerning screenings had a discussion with the patient, provided patient education, and recommended follow-up with primary care provider when appropriate. If patient noted with a risk of falling, they received education on strength, gait, and balance training to prevent future risk of falling. Assessment and Plan Assessment and Plan (1) Lumbar stenosis with neurogenic claudication: (2) Sacroiliitis: (3) Right hip pain: (4) Falls frequently: (5) Chronic prescription opiate use: Assessment and Plan: I feel these medications are improving the patient's quality of life and allow them to tolerate activities of daily living as well as participate in recreational activity.? The patient does not report intolerable side effects. The patient is NOT opioid naive and non-pharmacologic and non-opioid treatment has failed to significantly relieve the patient's pain and improve functionality. The patient has a diagnosis that is related to a somatic or visc eral pain etiology. ? ?? I reviewed with the patient the potential risks and side effects with the use of? opioid medications including but not limited to respiratory depression,? sedation, and even . I verified the patient has access to naloxone should? these effects occur. I advised the patient to avoid the use of any other? sedation substances including alcohol, THC, and benzodiazepines while? taking opioid medications due to the risk of compounding side effects and? detrimental outcomes. I reviewed the [employer], pain treatment agreement, urine? drug screen, and opioid start talking forms. The patient was advised to let? their family know they had Naloxone in case they would need to administer? the medication.? ?? A drug screen was completed within the last year, and no aberrancies were noted regarding their use of controlled substances. The patient understands they are subject to the terms and conditions of the pain contract that they have signed. ? ?? I have checked an [place] report on this patient today and there are no aberrancies noted in the prescribing history.? (6) Lumbar spondylosis: (7) Anticoagulant long-term use: (8) Balance problem: (9) Muscle spasm: Plan update lumbar MRI without contrast to evaluate severe low back and right leg pain, lumbar stenosis with NC consider spinal cord stimulator trial in the future start gabapentin 300mg BID, risks vs benefits reviewed. continue duloxetine 30mg daily continue baclofen 10mg TID PRN increase norco 7.5mg TID PRN moderate to severe pain, risks vs benefits discuss ed. narcan discussed and prescribed. can consider oxycodone if she fails to benefit chronic xarelto avoid NSAIDs f/u to review MRI
== END 2024-03-21 15:04 | disposition home or self-care (01) ==
LOC: PM 15:03
PROVIDERS: Visit Provider Nurse Practitioner
DX: M48.062 Spinal stenosis, lumbar region with neurogenic claudication (principal); M46.1 Sacroiliitis, not elsewhere classified; M25.551 Pain in right hip; Z79.891 Long term (current) use of opiate analgesic; R29.6 Repeated falls; M47.816 Spondylosis without myelopathy or radiculopathy, lumbar region; Z79.01 Long term (current) use of anticoagulants; M62.838 Other muscle spasm
CPT/HCPCS: G0463

== ENCOUNTER 2024-03-30 12:37 | Outpatient (OUT) | payer MEDICARE, SELFPAY ==
--- NOTE | 2024-03-30 12:40 | MR_ITS ---
[address] [address] Patient Name: NAHED BAUMANN MRN: [facility]:[id number] date: 1945 Sex: F Assigned Patient Location: MRI Current Patient Location: MRI Accession/Order Number: [id number] Exam Date: 03/30/2024 12:50 Report Date: 03/30/2024 18:42 At the request of: VERNON GIRON Procedure: MR lumbar spine wo con EXAMINATION: MR lumbar spine wo con HISTORY: Lumbar stenosis. Lumbar pain, radiating into the right leg for years. No known injury. COMPARISON: Lumbar MRI 02/07/2023 TECHNIQUE: Multiplanar, multisequence MRI images of the lumbar spine without contrast. FINDINGS: Straightening of the lumbar spine. There is stable 3 mm anterolisthesis at L4-L5. There is stable 2 mm anterolisthesis at L3-L4. No compression fractures. Moderate disc space narrowing at L3-L4 and severe disc space narrowing at L2-L3. Remaining disc space heights preserved. New inferior endplate concavity at T11. There are sclerotic changes visualized. Minimal anterior wedging. Conus medullaris terminates at L1. No abnormal signal in the distal spinal cord and conus. L5-S1: Disc bulge and moderate bilateral degenerative facet arthropathy without spinal canal or foraminal stenosis. L4-L5: Grade 1 anterolisthesis. Enlargement of a right paracentral disc extrusion, measuring 5 mm in AP dimension with superior and new 6 mm inferior migration. Severe facet arthropathy and ligamentum flavum hypertrophy. Progression of severe spinal canal and severe right and moderate to severe left lateral recess stenosis. There is stable mild to moderate right foraminal stenosis. L3-L4: Broad-based disc protrusion and moderate facet arthropathy. Moderate spinal canal and bilateral lateral recess stenosis, [id number] right foraminal stenosis, unchanged. L2-L3: Broad-based disc protrusion and mild facet arthropathy. Stable mild thecal sac effacement. No foraminal stenosis. T11-T12 through L1-L2: No disc herniations. No spinal canal or foraminal stenosis. MR/MR lumbar spine wo con IMPRESSION: 1. At L4-L5, there is slight interval enlargement of a right paracentral disc extrusion with new inferior migration. Progression of severe spinal canal stenosis, severe right and moderate to severe left lateral recess stenosis. Stable degenerative grade 1 anterolisthesis at this level. 2. Additional mild to moderate degenerative disc disease and facet arthropathy in the remaining lumbar spine with stenosis as described. 3. Interval visualization of mild inferior endplate concavity of the T11 vertebral body with mild anterior wedging. There are sclerotic changes. This suggests a chronic compression fracture, though new compared to 02/07/2023. Electronically authenticated by: ROBERTO ULRICH Date: 03/30/2024 18:42
== END 2024-03-30 12:38 | disposition home or self-care (01) ==
LOC: MRI 12:37
PROVIDERS: Visit Provider Nurse Practitioner
DX: M48.062 Spinal stenosis, lumbar region with neurogenic claudication (principal); M47.816 Spondylosis without myelopathy or radiculopathy, lumbar region; M51.26 Other intervertebral disc displacement, lumbar region
CPT/HCPCS: 72148

== ENCOUNTER 2024-04-04 12:34 | Outpatient (OUT) | payer MEDICARE, SELFPAY ==
--- NOTE | 2024-04-04 13:18 | PM.CN ---
Consult Note: HPI Data of Consult Patient: known to practice within the last 3 years Requesting Physician: Veronica Rouse NP Primary Care Provider: Non-Staff Physician, MD Consult Narrative Reason for consult: f/u Narrative: Deidra Peterson a pleasant 78 year old female presents for evaluation and management of chronic pain, today pain in low back and right leg 9/10 sharp stabbing. Increased to 10/10 with standing walking. Patient reporting pain is worsening since last visit. Two falls within the last 6 months, no falls since last OV, has not been evaluated by PT yet due to severe pain. Patient reporting imbalance and loosing her balance without dizziness or lightheadedness, denies LOC. Unfortunately she recently underwent right L4/5 L5/S1 TFESI and right SIJ injection with 100% improvement for four days before pain returned to baseline, patient reports for those four days her blood sugar was over 300. Recent MRI completed with results below, progressive severe stenosis at L4-5 level. Patient now reporting intermittent loss of bladder with severe pain upon standing. Patient finding benefit to gabapentin 300mg BID but it does cause drowsiness. [place] 7.5mg TID PRN with mild benefit for 5-6 hours at a time, denies side effects. baclofen 10mg TID with mild benefit. cc:: CC: Veronica Rouse NP Review of Systems ROS Status of ROS 10 or more systems reviewed and unremarkable except as noted in history and below Musculoskeletal Reports: back pain, extremity pain and muscle weakness PFSH [facility] Medical History Low back pain ?M54.50 - Low back pain, unspecified (ICD-10) Osteoarthritis ?M19.90 - Unspecified osteoarthritis, unspecified site (ICD-10) Obesity ?E66.9 - Obesity, unspecified (ICD-10) Hypothyroid ?E03.9 - Hypothyroidism, unspecified (ICD-10) Diabetes 1.5, managed as type 2 ?E13.9 - Other specified diabetes mellitus without complications (ICD-10) Sleep apnea ?G47.30 - Sleep apnea, unspecified (ICD-10) Irregular heartbeat ?I49.9 - Cardiac arrhythmia, unspecified (ICD-10) High cholesterol ?E78.00 - Pure hypercholesterolemia, unspecified (ICD-10) Hypertension ?I10 - Essential (primary) hypertension (ICD-10) Surgical History H/O shoulder surgery ?Z98.890 - Other specified postprocedural states (ICD-10) History of ankle surgery ?Z98.890 - Other specified postprocedural states (ICD-10) H/O tubal ligation ?Z98.51 - Tubal ligation status (ICD-10) History of appendectomy ?Z90.49 - Acquired absence of other specified parts of digestive tract (ICD-10) H/O: hysterectomy ?Z90.710 - Acquired absence of both cervix and uterus (ICD-10) History of cataract extraction with lens replacement H/O carpal tunnel repair ?Z98.890 - Other specified postprocedural states (ICD-10) Hx of cholecystectomy ?Z90.49 - Acquired absence of other specified parts of digestive tract (ICD-10) Meds Home Medications and Allergies Home Medications ?Medication ?Instructions ?Recorded ?Confirmed ?Type carvedilol 25 mg tablet 12 mg PO BID 01/18/23 01/30/24 History diltiazem HCl 60 mg tablet 60 mg PO TID 01/18/23 01/30/24 History duloxetine 30 mg capsule,delayed 60 mg PO DAILY 01/18/23 01/30/24 History release furosemide 20 mg tablet (Lasix) 20 mg PO DAILY 01/18/23 01/30/24 History insulin glargine 100 unit/mL 27 unit subcut BID 01/18/23 01/30/24 History subcutaneous solution (Lantus U-100 Insulin) levothyroxine 75 mcg capsule 75 mcg PO DAILY 01/18/23 01/30/24 History multivitamin 1 tab PO DAILY 01/18/23 01/30/24 History ramipril 5 mg capsule 5 mg PO DAILY 01/18/23 01/30/24 History rivaroxaban 20 mg tablet (Xarelto) 20 mg PO DAILY 01/18/23 01/30/24 History cranberry 500 mg capsule 500 mg PO DAILY 04/14/23 01/30/24 History docusate sodium 100 mg capsule 100 mg PO BID 04/14/23 01/30/24 History (Stool Softener) magnesium glycinate 100 mg (as 100 mg PO DAILY 04/14/23 01/30/24 History glycinate) tablet mecobalamin (vitamin B12) 1,000 1,000 mcg PO DAILY 04/14/23 01/30/24 History mcg chewable tablet (B12 Active) milk thistle seed extract 140 cap PO 06/29/23 History mg-milk thistle 500 mg capsule baclofen 10 mg tablet 10 mg PO TID PRN muscle spasm #90 07/14/23 01/30/24 Rx tabs hydrocodone 7.5 mg-acetaminophen 1 tab PO TID PRN pain #90 tabs 12/13/23 01/30/24 Rx 325 mg tablet semaglutide 1 mg/dose (4 mg/3 mL) 0.25 mg subcut QWEEK 01/16/24 01/30/24 History subcutaneous pen injector (Ozempic) hydrocodone 5 mg-acetaminophen 325 1 tab PO TID PRN pain #90 tabs 02/09/24 Rx mg tablet gabapentin 300 mg capsule 300 mg PO BID #60 caps 03/21/24 Rx hydrocodone 7.5 mg-acetaminophen 1 tab PO TID PRN pain #90 tabs 03/21/24 Rx 325 mg tablet Allergies Allergy/AdvReac Type Severity Reaction Status Date / Time amlodipine Allergy Unknown Verified 01/30/24 09:19 amoxicillin [From Augmentin] Allergy Unknown Verified 01/30/24 09:19 bacitracin Allergy Unknown Verified 01/30/24 09:19 [From Neosporin ([id number])] clavulanic acid Allergy Unknown Verified 01/30/24 09:19 [From Augmentin] dexamethasone [From TobraDex] Allergy Unknown Verified 01/30/24 09:19 fexofenadine [From Jody] Allergy Unknown Verified 01/30/24 09:19 metformin Allergy Unknown Verified 01/30/24 09:19 neomycin Allergy Unknown Verified 01/30/24 09:19 oxybutynin Allergy Unknown Verified 01/30/24 09:19 polymyxin B Allergy Unknown Verified 01/30/24 09:19 [From Neosporin ([id number])] simvastatin [From Zocor] Allergy Unknown Verified 01/30/24 09:19 tobramycin [From TobraDex] Allergy Unknown Verified 01/30/24 09:19 tramadol Allergy Unknown Verified 01/30/24 09:19 Exam Constitutional Documenting provider has reviewed patient's vital signs: yes Common normals: no apparent distress, oriented x3, healthy appearing, alert and well nourished General appearance: cooperative HENMT Common normals: normocephalic, hearing grossly normal bilaterally and moist oral mucous membranes Head and scalp: normocephalic Eye Common normals: PERRL Pupil: PERRL Neck & C-Spine Common normals: full ROM General: normal visual inspection Cervical spine: pain with cervical ROM Other: negative spurlings pain over bilateral c3-4 c4-5 facets and following dweyer diagram Chest Common normals: inspection of chest normal Respiratory Common normals: normal respiratory effort, no retractions and no use of accessory muscles Back & Pelvis Lumbar spine/lower back: ROM limited, pain with ROM and straight leg raise positive right Sacroiliac joints: SI joint(s) abnormal SI joint details: tender to palpation, pain elicited by compression of iliac crest maneuver and pain elicited by passive hyperextension of lower extremity Other: right L4, L5, S1 radiculopathy strength 3/5 in RLE right hip pain with internal and external rotation, severe tenderness over piriformis muscles. Extremity Common normals: normal to inspection and full ROM Right lower extremity: hip joint (pain with internal rotation and external rotation) Right hip: special tests Neuro Common normals: oriented x3, CN's II-XII intact bilaterally, moves all extremities, no focal motor deficits, no sensory deficits noted and deep tendon reflexes 2+ bilaterally Sensorium/orientation: alert Gait (neuro): antalgic and assistive device used walker Motor exam: strength 5/5 throughout and no movement abnormalities noted Psych Common normals: mental status grossly normal, thought process normal, cooperative, affect normal, speech normal and activity/motor behavior normal Speech: normal speech Thought process: normal thought process Results Imaging Lumbar MRI: Attestation: I have reviewed the pertinent imaging results. Radiologist's impression: FINDINGS: Straightening of the lumbar spine. There is stable 3 mm anterolisthesis at L4-L5. There is stable 2 mm anterolisthesis at L3-L4. No compression fractures. Moderate disc space narrowing at L3-L4 and severe disc space narrowing at L2-L3. Remaining disc space heights preserved. New inferior endplate concavity at T11. There are sclerotic changes visualized. Minimal anterior wedging. Conus medullaris terminates at L1. No abnormal signal in the distal spinal cord and conus. L5-S1: Disc bulge and moderate bilateral degenerative facet arthropathy without spinal canal or foraminal stenosis. L4-L5: Grade 1 anterolisthesis. Enlargement of a right paracentral disc extrusion, measuring 5 mm in AP dimension with superior and new 6 mm inferior migration. Severe facet arthropathy and ligamentum flavum hypertrophy. Progression of severe spinal canal and severe right and moderate to severe left lateral recess stenosis. There is stable mild to moderate right foraminal stenosis. L3-L4: Broad-based disc protrusion and moderate facet arthropathy. Moderate spinal canal and bilateral lateral recess stenosis, [id number] right foraminal stenosis, unchanged. L2-L3: Broad-based disc protrusion and mild facet arthropathy. Stable mild thecal sac effacement. No foraminal stenosis. T11-T12 through L1-L2: No disc herniations. No spinal canal or foraminal stenosis. Additional Findings Additional findings: If on a controlled substance or opioids, I have checked an [place] report on this patient and there are no aberrancies noted in the prescribing history.??If on a controlled substance or opioid a drug screen was completed and reviewed within the last year, and if there has not been a drug screen completed we ordered one today to monitor higher risk, state monitored pain medication use. As part of providing excellent, safe, comprehensive care, the following was completed at our patient's visit: 1. A medication reconciliation and review to ensure accurate knowledge of current/active medications, including asking our patients to inform us about any caoj-dre-xhhaswj medications or herbal remedies/nutritional supplements/alternative remedies. 2. A review to specifically ensure our patients have had annual screening for screening for depression, screening for tobacco use, and screening for unhealthy alcohol use. For concerning screenings had a discussion with the patient, provided patient education, and recommended follow-up with primary care provider when appropriate. If patient noted with a risk of falling, they received education on strength, gait, and balance training to prevent future risk of falling. Assessment and Plan Assessment and Plan (1) Cauda equina syndrome: Assessment and Plan: suspected, intermittent bladder loss (2) Lumbar stenosis with neurogenic claudication: (3) Sacroiliitis: (4) Anticoagulant long-term use: (5) Falls frequently: (6) Chronic prescription opiate use: Assessment and Plan: I feel these medications are improving the patient's quality of life and allow them to tolerate activities of daily living as well as participate in recreational activity.? The patient does not report intolerable side effects. The patient is NOT opioid naive and non-pharmacologic and non-opioid treatment has failed to significantly relieve the patient's pain and improve functionality. The patient has a diagnosis that is related to a somatic or visceral pain etiology. ? ?? I reviewed with the patient the potential risks and side effects with the use of? opioid medications including but not limited to respiratory depression,? sedation, and even . I verified the patient has access to naloxone should? these effects occur. I advised the patient to avoid the use of any other? sedation substances including alcohol, THC, and benzodiazepines while? taking opioid medications due to the risk of compounding side effects and? detrimental outcomes. I reviewed the [employer], pain treatment agreement, urine? drug screen, and opioid start talking forms. The patient was advised to let? their family know they had Naloxone in case they would need to administer? the medication.? ?? A drug screen was completed within the last year, and no aberrancies were noted regarding their use of controlled substances. The patient understands they are subject to the terms and conditions of the pain contract that they have signed. ? ?? I have checked an OARRS report on this patient today and there are no aberrancies noted in the prescribing history.? (7) Muscle spasm: (8) Lumbar spondylosis: Plan urgent referral to NS of patients choice, she has a name and number at home for a surgeon out of [facility] in [place] she would like to meet with for evaluation of severe low back pain and lumbar stenosis, questionable cauda equina syndrome. patient will call back when she gets home. s/s of JAIME reviewed with patient and when to seek ER evaluation increase gabapentin to 300mg TID, or 300mg AM 600mg HS as tolerated. risks vs benefits reviewed continue to utilize walker, defer PT at this time continue baclofen 10mg TID continue hydrocodone-acetaminophen 7.5mg TID moderate to severe pain f/u after NS consult
== END 2024-04-04 12:35 | disposition home or self-care (01) ==
LOC: PM 12:34
PROVIDERS: Visit Provider Nurse Practitioner
DX: G95.89 Other specified diseases of spinal cord (principal); M48.062 Spinal stenosis, lumbar region with neurogenic claudication; M46.1 Sacroiliitis, not elsewhere classified; Z79.01 Long term (current) use of anticoagulants; R29.6 Repeated falls; Z79.891 Long term (current) use of opiate analgesic; M62.838 Other muscle spasm; M47.816 Spondylosis without myelopathy or radiculopathy, lumbar region
CPT/HCPCS: G0463